=== PATIENT | male | born 1950 | race Caucasian/White ===

== ENCOUNTER 2019-05-13 16:17 | Emergency (ER) | payer OTHER ==
[2019-05-13 17:19] LABS: Absolute Lymphocytes (CBC) 2.1 K/uL (0.7-4.9); Basophils % 1.3 % (0-1.3); Hematocrit 46.1 % (39.6-49.0); Lymphocytes % 20.4 % (15.3-44.8); MPV 8.3 fL (7.6-11.3); RBC Red Blood Cell Count 4.77 M/uL (4.33-5.43)
[2019-05-13 17:20] LABS: Protime INR 1.24
--- NOTE | 2019-05-13 17:34 | RAD REPORT ---
EXAM DESCRIPTION: RAD - Chest Single View - 05/13/2019 5:06 pm CLINICAL HISTORY: near syncope. Cardiac Hx Chest pain. COMPARISON: No comparisonsChest Single View dated 10/06/2016; Chest Single View dated 10/05/2016; Chest Single View dated 07/24/2016; Chest Pa And Lat (2 Views) dated 06/07/2016 FINDINGS: Portable technique limits examination quality. The lungs are grossly clear. The heart is mildly enlarged in size. No displaced fractures. IMPRESSION: Mild cardiomegaly.
[2019-05-13 17:45] LABS: ALT/SGPT 32 U/L (12-78); AST/SGOT 24 U/L (15-37); Albumin 3.8 g/dL (3.4-5.0); Alkaline Phosphatase 107 U/L (45-117); BUN Blood Urea Nitrogen 27 mg/dL (7-18); Bicarbonate 25 mmol/L (21-32); Bilirubin Direct 0.1 mg/dL (0-0.2); Bilirubin Total 0.5 mg/dL (0.2-1.0); Glucose Level 105 mg/dL (74-106); Magnesium 2.4 mg/dL (1.8-2.4); NT PRO-BNP 1775 pg/mL (<125); Potassium 3.6 mmol/L (3.5-5.1); Protein, Total 7.9 g/dL (6.4-8.2); Sodium Level 142 mmol/L (136-145); Troponin (Emerg Dept Use Only) < 0.02 ng/mL (0.0-0.045)
--- NOTE | 2019-05-13 17:48 | EDPHYS ---
Physician Documentation [facility] Name: Frank Shaw Age: 69 yrs Sex: Male : 1950 Arrival Date: 05/13/2019 Time: 16:33 Bed 26 Private MD: DORYS Physician Jama Echols HPI: 05/13 16:59 This 69 yrs old Male presents to ER via Unassigned with complaints of Near jr8 Syncope, Dizziness. 16:59 The patient has experienced near-syncope, felt dizzy. Onset: The symptoms/episode jr8 began/occurred acutely, today. Duration: This was a single episode, that lasted 5 minute(s). Context: occurred outdoors, at work, occurred while the patient was standing, walking, Just prior to the episode the patient experienced no apparent symptoms. Associated injury: The patient did not suffer any apparent associated injury. Associated signs and symptoms: The patient has no apparent associated signs or symptoms. Current symptoms: Currently, the patient is not experiencing any symptoms, the patient feels back to baseline, no decreased level of consciousness, no confusion, no dysphasia, no headache, no paralysis, no visual changes. The patient has not experienced similar symptoms in the past. The patient has not recently seen a physician. 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 Turned around to walk back and became dizzy. Now with complete symptom resolution. Denied any other symptoms pre incident or during incident. Stated that he feels completely normal at this point . Historical: - Allergies: 16:33 Robaxin; aa5 16:33 statins; aa5 - Home Meds: 16:33 aspirin 81 mg Oral chew 1 tab once daily [Active]; doxazosin 2 mg Oral tab 1 tab twice aa5 a day [Active]; hydralazine 25 mg Oral tab 1 tab 2 times per day for Hypertension [Active]; Lasix 40 mg Oral tab 1 tab once daily for Peripheral Edema due to Chronic Heart Failure [Active]; metoprolol tartrate 50 mg Oral tab 1 tab 2 times per day [Active]; montelukast 10 mg Oral tab 1 tab once daily [Active]; nifedipine 60 mg Oral TbER 1 tab twice a day [Active]; nitroglycerin 0.4 mg SL subl 1 tab as needed [Active]; potassium chloride 10 mEq Oral cpER 1 cap 3 times per day for Hypokalemia Prevention [Active]; Xarelto 20 mg Oral tab 1 tab once daily [Active]; - PMHx: 16:33 Atrial Fib; CAD; CHF; COPD; CVA; Diabetes - NIDDM; Hernia; Hypertension; Myocardial aa5 infarction; Renal Disease; Sleep Apnea; - PSHx: 16:33 Heart stents; back sx; Knee surgery; Chest tube for collapsed lung; aa5 - Immunization history:: Flu vaccine is not up to date. - Social history:: Smoking status: Patient uses tobacco products, smokes one-half pack cigarettes per day, chewing tobacco. - Ebola Screening: : No symptoms or risks identified at this time. ROS: 16:59 Eyes: Negative for injury, pain, redness, and discharge, ENT: Negative for injury, jr8 pain, and discharge, Neck: Negative for injury, pain, and swelling, Cardiovascular: Negative for chest pain, palpitations, and edema, Respiratory: Negative for shortness of breath, cough, wheezing, and pleuritic chest pain, Abdomen/GI: Negative for abdominal pain, nausea, vomiting, diarrhea, and constipation, Back: Negative for injury and pain, MS/Extremity: Negative for injury and deformity, Skin: Negative for injury, rash, and discoloration. 16:59 Neuro: Positive for dizziness. Exam: 16:59 Eyes: Pupils equal round and reactive to light, extra-ocular motions intact. Lids and jr8 lashes normal. Conjunctiva and sclera are non-icteric and not injected. Cornea within normal limits. Periorbital areas with no swelling, redness, or edema. ENT: Nares patent. No nasal discharge, no septal abnormalities noted. Tympanic membranes are normal and external auditory canals are clear. Oropharynx with no redness, swelling, or masses, exudates, or evidence of obstruction, uvula midline. Mucous membranes moist. Neck: Trachea midline, no thyromegaly or masses palpated, and no cervical lymphadenopathy. Supple, full range of motion without nuchal rigidity, or vertebral point tenderness. No Meningismus. Cardiovascular: Regular rate and rhythm with a normal S1 and S2. No gallops, murmurs, or rubs. Normal PMI, no JVD. No pulse deficits. Respiratory: Lungs have equal breath sounds bilaterally, clear to auscultation and percussion. No rales, rhonchi or wheezes noted. No increased work of breathing, no retractions or nasal flaring. Abdomen/GI: Soft, non-tender, with normal bowel sounds. No distension or tympany. No guarding or rebound. No evidence of tenderness throughout. Back: No spinal tenderness. No costovertebral tenderness. Full range of motion. Skin: Warm, dry with normal turgor. Normal color with no rashes, no lesions, and no evidence of cellulitis. MS/ Extremity: Pulses equal, no cyanosis. Neurovascular intact. Full, normal range of motion. Neuro: Awake and alert, GCS 15, oriented to person, place, time, and situation. Cranial nerves II-XII grossly intact. Motor strength 5/5 in all extremities. Sensory grossly intact. Cerebellar exam normal. Normal gait. 17:12 ECG was reviewed by the Attending Physician. [facility] Vital Signs: 16:34 BP 145 / 86; Pulse 81; Resp 18 S; Temp 98.6(O); Pulse Ox 96% on R/A; Weight 111.13 kg aa5 (R); Height 5 ft. 10 in. (177.80 cm) (R); Pain 0/10; 17:00 BP 148 / 97; Pulse 91; Resp 16 S; Pulse Ox 96% on R/A; aa5 18:00 BP 141 / 83; Pulse 95; Resp 18 S; Pulse Ox 96% on R/A; aa5 16:34 Body Mass Index 35.15 (111.13 kg, 177.80 cm) aa5 MDM: 16:37 Patient medically screened. [facility] 16:59 Data reviewed: vital signs, nurses notes, lab test result(s), EKG, radiologic studies, jr8 plain films. Data interpreted: Pulse oximetry: on room air is 100 %. Interpretation: normal. Counseling: I had a detailed discussion with the patient and/or guardian regarding: the historical points, exam findings, and any diagnostic results supporting the discharge/admit diagnosis, lab results, radiology results. 05/13 16:37 Order name: Basic Metabolic Panel; Complete Time: 17:47 8 05/13 16:37 Order name: CBC with Diff; Complete Time: 17:29 8 05/13 16:37 Order name: LFT's; Complete Time: 17:47 8 05/13 16:37 Order name: Magnesium; Complete Time: 17:47 05/13 16:37 Order name: NT PRO-BNP; Complete Time: 17:47 05/13 16:37 Order name: PT-INR; Complete Time: 17:29 05/13 16:37 Order name: Troponin (emerg Dept Use Only); Complete Time: 17:47 05/13 16:37 Order name: XRAY Chest (1 view); Complete Time: 17:47 05/13 16:37 Order name: EKG; Complete Time: 16:40 05/13 16:37 Order name: Cardiac monitoring; Complete Time: 16:47 05/13 16:37 Order name: EKG - Nurse/Tech; Complete Time: 16:47 05/13 16:37 Order name: IV Saline Lock; Complete Time: 16:56 05/13 16:37 Order name: Labs collected and sent; Complete Time: 16:56 05/13 16:37 Order name: O2 Per Protocol; Complete Time: 16:47 05/13 16:37 Order name: O2 Sat Monitoring; Complete Time: 16:47 EC:12 Rate is 94 beats/min. Rhythm is irregularly irregular, A fib. QRS [place] is Normal. QRS jr8 interval is normal at 102 msec. QT interval is prolonged at 465 msec. No Q waves. T waves are Normal. No ST changes noted. Clinical impression: Atrial Fibrillation and No evidence of ischemia. Interpreted by me. Reviewed by me. Administered Medications: No medications were administered Disposition: 05/14 07:52 Co-signature as Attending Physician, Jama Echols MD I agree with the assessment and dorina plan of care. Disposition: 05/13/19 17:48 Discharged to Home. Impression: Dizziness. - Condition is Stable. - Discharge Instructions: Dizziness. - Medication Reconciliation Form, Thank You Letter, Antibiotic Education, Prescription Opioid Use form. - Follow up: Private Physician; When: 2 - 3 days; Reason: Recheck today's complaints, Continuance of care, Re-evaluation by your physician. - Problem is new. - Symptoms are resolved. Signatures: Dispatcher [employer] Jama Williamson MD MD cha Calderon, Audri, RN RN aa5 Smooth Cuevas PA PA jr8 Laila Sifuentes lt1 Corrections: (The following items were deleted from the chart) 05/13 18:24 17:48 05/13/2019 17:48 Discharged to Home. Impression: Dizziness. Condition is Stable. lt1 Forms are Medication Reconciliation Form, Thank You Letter, Antibiotic Education, Prescription Opioid Use. Follow up: Private Physician; When: 2 - 3 days; Reason: Recheck today's complaints, Continuance of care, Re-evaluation by your physician. Problem is new. Symptoms are resolved. jr8
--- NOTE | 2019-05-13 17:48 | ER ---
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 Pt denies LOC, denies head injury, denies pain. Pt states "I feel fine now". 16:33 Transition of care: patient was not received from another setting of care. Onset of aa5 symptoms was May 13, 2019. Risk Assessment: Do you want to hurt yourself or someone else? Patient reports no desire to harm self or others. Initial Sepsis Screen: Does the patient meet any 2 criteria? No. Patient's initial sepsis screen is negative. Does the patient have a suspected source of infection? No. Patient's initial sepsis screen is negative. Care prior to arrival: Glucose check: 103. 16:33 Acuity: AGUS 3 aa5 16:33 Method Of Arrival: EMS: [facility] aa5 Historical: - Allergies: 16:33 Robaxin; aa5 16:33 statins; aa5 - Home Meds: 16:33 aspirin 81 mg Oral chew 1 tab once daily [Active]; doxazosin 2 mg Oral tab 1 tab twice aa5 a day [Active]; hydralazine 25 mg Oral tab 1 tab 2 times per day for Hypertension [Active]; Lasix 40 mg Oral tab 1 tab once daily for Peripheral Edema due to Chronic Heart Failure [Active]; metoprolol tartrate 50 mg Oral tab 1 tab 2 times per day [Active]; montelukast 10 mg Oral tab 1 tab once daily [Active]; nifedipine 60 mg Oral TbER 1 tab twice a day [Active]; nitroglycerin 0.4 mg SL subl 1 tab as needed [Active]; potassium chloride 10 mEq Oral cpER 1 cap 3 times per day for Hypokalemia Prevention [Active]; Xarelto 20 mg Oral tab 1 tab once daily [Active]; - PMHx: 16:33 Atrial Fib; CAD; CHF; COPD; CVA; Diabetes - NIDDM; Hernia; Hypertension; Myocardial aa5 infarction; Renal Disease; Sleep Apnea; - PSHx: 16:33 Heart stents; back sx; Knee surgery; Chest tube for collapsed lung; aa5 - Immunization history:: Flu vaccine is not up to date. - Social history:: Smoking status: Patient uses tobacco products, smokes one-half pack cigarettes per day, chewing tobacco. - Ebola Screening: : No symptoms or risks identified at this time. Screenin:20 Abuse screen: Denies threats or abuse. Nutritional screening: No deficits noted. aa5 Tuberculosis screening: No symptoms or risk factors identified. Fall Risk Fall in past 12 months (25 points). IV access (20 points). Total Christensen Fall Scale indicates High Risk Score (45 or more points). Fall prevention measures have been instituted. Side Rails Up X 2 Placed Close to Nursing Station. Assessment: 16:33 General: Appears comfortable, Behavior is calm, cooperative. Pain: Denies pain. Neuro: aa5 Level of Consciousness is awake, alert, obeys commands, Oriented to person, place, time, situation, Marking Devices Assembler are equal bilaterally Moves all extremities. Speech is normal, Facial symmetry appears normal, Denies dizziness. Cardiovascular: Heart tones S1 S2 present Rhythm is atrial fibrillation. Respiratory: Airway is patent Respiratory effort is even, unlabored, Respiratory pattern is regular, symmetrical. GI: Abdomen is obese, Bowel sounds present X 4 quads. : No signs and/or symptoms were reported regarding the genitourinary system. EENT: No signs and/or symptoms were reported regarding the EENT system. Derm: Skin is pink, warm \\T\\ dry. Musculoskeletal: Range of motion: intact in all extremities. 17:30 Reassessment: Patient is alert, oriented x 3, equal unlabored respirations, skin aa5 warm/dry/pink. Patient denies pain at this time. Pt sitting up in bed watching TV . 17:30 Cardiovascular: Rhythm is atrial fibrillation. aa5 18:22 Reassessment: Patient is alert, oriented x 3, equal unlabored respirations, skin aa5 warm/dry/pink. Vital Signs: 16:34 BP 145 / 86; Pulse 81; Resp 18 S; Temp 98.6(O); Pulse Ox 96% on R/A; Weight 111.13 kg aa5 (R); Height 5 ft. 10 in. (177.80 cm) (R); Pain 0/10; 17:00 BP 148 / 97; Pulse 91; Resp 16 S; Pulse Ox 96% on R/A; aa5 18:00 BP 141 / 83; Pulse 95; Resp 18 S; Pulse Ox 96% on R/A; aa5 16:34 Body Mass Index 35.15 (111.13 kg, 177.80 cm) aa5 ED Course: 16:33 Patient arrived in ED. aa5 16:33 Arm band placed on Patient placed in an exam room, on a stretcher. aa5 16:33 Patient has correct armband on for positive identification. Placed in gown. Bed in low aa5 position. Call light in reach. Side rails up X2. threat monitoring analyst on. Pulse ox on. NIBP on. 16:37 Smooth Cuevas PA is PHCP. [place] 16:37 Jama Echols MD is Attending Physician. [place] 16:56 Marleen Bee, TRENT is Primary Nurse. aa5 16:59 Initial lab(s) drawn, by me, sent to lab. Inserted saline lock: 20 gauge in left lt1 antecubital area, using aseptic technique. 17:01 Triage completed. aa5 17:07 XRAY Chest (1 view) In Process Unspecified. EDMS 18:22 IV discontinued, intact, bleeding controlled, No redness/swelling at site. Pressure aa5 dressing applied. 18:24 No provider procedures requiring assistance completed. aa5 Administered Medications: No medications were administered Outcome: 17:48 Discharge ordered by . andre 18:22 Discharged to home ambulatory, with family. aa5 18:22 Condition: stable 18:22 Discharge instructions given to patient, Instructed on discharge instructions, follow up and referral plans. Demonstrated understanding of instructions, follow-up care. 18:24 Patient left the ED. lt1 Signatures: Dispatcher [employer] EDMS Marleen Bee, RN RN aa5 Smooth Cuevas PA PA jr8 Tran, Leah lt1 Corrections: (The following items were deleted from the chart) 18:32 18:22 [facility]
[2019-05-13 19:02] VITALS: BP 145/86; TEMP 98.6; O2SAT 96
--- NOTE | 2019-05-14 12:21 | EKG ---
Test Date: 2019-05-13 Test Time: 16:45:35 Set Staff Fitter: JINT MEASUREMENT RESULTS: Intervals: Rate: 94 MD: QRSD: 102 QT: 372 QTc: 465 [place]: P: MD: QRS: 70 T: 14 INTERPRETIVE STATEMENTS: Atrial fibrillation Abnormal ECG Compared to ECG 10/05/2016 21:38:25 Sinus rhythm no longer present Atrial premature complex(es) no longer present Electronically Signed On 05-14-19 12:20:43 [employer]OR [employer] by Mike Ray
== END 2019-05-13 18:24 | disposition home or self-care (01) ==
LOC: ER 16:17
DX: R42 Dizziness and giddiness (principal); N28.9 Disorder of kidney and ureter, unspecified; I10 Essential (primary) hypertension; E11.9 Type 2 diabetes mellitus without complications; I50.9 Heart failure, unspecified; I48.91 Unspecified atrial fibrillation; I25.2 Old myocardial infarction; Z79.01 Long term (current) use of anticoagulants; Z79.82 Long term (current) use of aspirin; Z88.8 Allergy status to other drugs, medicaments and biological substances
CPT/HCPCS: 36415; 71045; 80048; 80076; 83735; 83880; 84484; 85025; 85610; 93005; 99284

== ENCOUNTER 2019-06-12 00:45 | Emergency (ER) | payer OTHER ==
--- NOTE | 2019-06-12 01:46 | ER ---
Nurse's Notes [facility] Name: Frank Shaw Age: 69 yrs Sex: Male : 1950 Arrival Date: 06/12/2019 Time: 00:49 Bed 14 Private MD: Diagnosis: Removal foreign body from right ear canal Presentation: 06/12 01:00 Presenting complaint: Patient states: PIECE OF HEARING AID DISLODGED IN THE RIGHT EAR. rv Transition of care: patient was not received from another setting of care. Onset of symptoms was June 11, 2019 at 23:30. Risk Assessment: Do you want to hurt yourself or someone else? Patient reports no desire to harm self or others. Initial Sepsis Screen: Does the patient meet any 2 criteria? No. Patient's initial sepsis screen is negative. Does the patient have a suspected source of infection? No. Patient's initial sepsis screen is negative. Care prior to arrival: None. 01:00 Method Of Arrival: Ambulatory rv 01:00 Acuity: AGUS 4 rv Triage Assessment: 01:07 General: Behavior is calm. rv Historical: - Allergies: 01:05 Robaxin; rv 01:05 statins; rv - PMHx: 01:05 Atrial Fib; CAD; CHF; COPD; CVA; Diabetes - NIDDM; Hernia; Hypertension; Myocardial rv infarction; Renal Disease; Sleep Apnea; - PSHx: 01:05 ANEURYSM REPAIR; BACK SX; rv - Immunization history:: Adult Immunizations up to date, Pneumococcal vaccine is not up to date, Flu vaccine is not up to date. - Coronavirus screen:: The patient has NOT traveled to [place], [place], or [place] in the past 14 days. Proceed with normal triage process as indicated. The patient has NOT had contact with known/suspected case of Coronavirus? Proceed with normal triage procedures. - Social history:: Smoking status: Patient denies any tobacco usage or history of. - Ebola Screening: : No symptoms or risks identified at this time. Screenin:06 Abuse screen: Denies threats or abuse. Denies injuries from another. Nutritional rv screening: No deficits noted. Tuberculosis screening: No symptoms or risk factors identified. Fall Risk None identified. Assessment: 01:06 General: Appears in no apparent distress. Pain: Complains of pain in right ear Pain rv currently is 1 out of 10 on a pain scale. Neuro: Level of Consciousness is awake, alert, obeys commands, Oriented to person, place, time, situation. Cardiovascular: Patient's skin is warm and dry. Respiratory: Airway is patent. Vital Signs: 01:01 BP 143 / 99; Pulse 77; Resp 18; Temp 98; Pulse Ox 100% ; Weight 113.4 kg; Height 5 ft. rv 11 in. (180.34 cm); Pain 0/10; 01:01 Body Mass Index 34.87 (113.40 kg, 180.34 cm) rv ED Course: 00:49 Patient arrived in ED. jg7 01:00 Augustus Flores, TRENT is Primary Nurse. rv 01:01 Triage completed. rv 01:01 Jama Navarrete PA is PHCP. cp 01:01 Jama Echols MD is Attending Physician. cp 01:05 Arm band placed on Patient placed in the treatment room, on a stretcher, Patient rv notified of wait time. 01:06 Patient has correct armband on for positive identification. Pulse ox on. NIBP on. rv 01:44 Tram Sofia MD is Referral Physician. cp 01:59 No provider procedures requiring assistance completed. Patient did not have IV access rv during this emergency room visit. Administered Medications: No medications were administered Outcome: 01:45 Discharge ordered by . cp 02:00 Discharged to home ambulatory. rv 02:00 Condition: good 02:00 Discharge instructions given to patient, Instructed on discharge instructions, follow up and referral plans. medication usage, Demonstrated understanding of instructions, follow-up care, medications, Prescriptions given X 1. 02:00 Patient left the ED. rv Signatures: Jama Navarrete PA PA cp Augustus Flores, RN RN rv Jessika Georges jg7 Corrections: (The following items were deleted from the chart) 02:00 01:59 Crutch training done. Orthoglass splint: Posterior short lleg splint applied on rv right leg. rv
--- NOTE | 2019-06-12 01:46 | EDPHYS ---
Physician Documentation [facility] Name: Frank Shaw Age: 69 yrs Sex: Male : 1950 Arrival Date: 06/12/2019 Time: 00:49 Bed 14 Private MD: ED Physician Jama Echols HPI: 06/12 01:15 This 69 yrs old Male presents to ER via Ambulatory with complaints of Foreign cp Body In Ear. 01:15 The patient presents with a foreign body sensation, believes piece of hearing aid is cp stuck in right ear canal. 01:15 The complaints affect the right ear. Onset: The symptoms/episode began/occurred today. cp Associated signs and symptoms: Pertinent negatives: cough, fever, sinus trouble, sore throat, vertigo, drainage from ear. Severity of symptoms: in the emergency department the symptoms are unchanged despite home interventions. Historical: - Allergies: 01:05 Robaxin; rv 01:05 statins; rv - PMHx: 01:05 Atrial Fib; CAD; CHF; COPD; CVA; Diabetes - NIDDM; Hernia; Hypertension; Myocardial rv infarction; Renal Disease; Sleep Apnea; - PSHx: 01:05 ANEURYSM REPAIR; BACK SX; rv - Immunization history:: Adult Immunizations up to date, Pneumococcal vaccine is not up to date, Flu vaccine is not up to date. - Coronavirus screen:: The patient has NOT traveled to [place], [place], or [place] in the past 14 days. Proceed with normal triage process as indicated. The patient has NOT had contact with known/suspected case of Coronavirus? Proceed with normal triage procedures. - Social history:: Smoking status: Patient denies any tobacco usage or history of. - Ebola Screening: : No symptoms or risks identified at this time. ROS: 01:20 ENT: Positive for foreign body sensation right ear canal, Negative for drainage from cp ear(s), sore throat, difficulty swallowing, difficulty handling secretions. 01:20 Eyes: Negative for injury, pain, redness, and discharge. cp 01:20 Constitutional: Negative for body aches, chills, fever. 01:20 Respiratory: Negative for cough, shortness of breath, wheezing. 01:20 Abdomen/GI: Negative for abdominal pain. 01:20 Skin: Negative for rash. 01:20 Neuro: Negative for headache. 01:20 All other systems are negative. Exam: 01:25 Head/Face: Normocephalic, atraumatic. cp 01:25 Constitutional: The patient appears in no acute distress, alert, awake, non-toxic, well developed, well nourished. 01:25 Eyes: Periorbital structures: appear normal, Conjunctiva: normal, no exudate, no injection, Lids and lashes: appear normal, bilaterally. 01:25 ENT: External ear(s): are unremarkable, Ear canal(s): erythema, of the right canal, foreign body, appears as clear plastic tip of hearing aid device, in the right external ear canal, purulent discharge, is not appreciated, Examination of the other ear shows no obvious abnormality, Nose: is normal, Mouth: Lips: moist, Oral mucosa: moist, Posterior pharynx: Airway: no evidence of obstruction, patent. 01:25 Chest/axilla: Inspection: normal. 01:25 Cardiovascular: Rate: normal. 01:25 Respiratory: the patient does not display signs of respiratory distress, Respirations: normal, no use of accessory muscles, labored breathing, is not present. 01:25 Skin: no rash present. Vital Signs: 01:01 BP 143 / 99; Pulse 77; Resp 18; Temp 98; Pulse Ox 100% ; Weight 113.4 kg; Height 5 ft. rv 11 in. (180.34 cm); Pain 0/10; 01:01 Body Mass Index 34.87 (113.40 kg, 180.34 cm) rv Procedures: 01:55 Foreign Body Removal: piece of plastic, clear tip of hearing aid, from the right ear cp canal, by using alligator clamps, The patient tolerated the removal well. MDM: 01:02 Patient medically screened. cp 01:45 Differential diagnosis: otitis media, otitis externa, ruptured TM, foreign body, cp cerumen impaction. 01:45 Data reviewed: vital signs, nurses notes, and as a result, I will discharge patient. cp Counseling: I had a detailed discussion with the patient and/or guardian regarding: the historical points, exam findings, and any diagnostic results supporting the discharge/admit diagnosis, to return to the emergency department if symptoms worsen or persist or if there are any questions or concerns that arise at home. Response to treatment: the patient's symptoms have markedly improved after treatment, and as a result, I will discharge patient. Administered Medications: No medications were administered Disposition: 06/12/19 01:45 Discharged to Home. Impression: Removal foreign body from right ear canal. - Condition is Stable. - Discharge Instructions: Ear Foreign Body. - Prescriptions for Ciprodex 0.3- 0.1 % Otic Drops, Suspension - instill 4 drops by OTIC route every 12 hours for 7 days , for ears ONLY. instill drops in right ear canal; 1 Container. - Medication Reconciliation Form, Thank You Letter, Antibiotic Education, Prescription Opioid Use form. - Follow up: Tram Sofia MD; When: 2 - 3 days; Reason: Worsening of condition. - Problem is new. - Symptoms have improved. Addendum: 06/14/2019 06:56 Co-signature as Attending Physician, Jama Echols MD I agree with the assessment and c hdz plan of care. Signatures: Jama Echols MD MD cha Page, Corey PA PA Augustus Navarro, RN RN rv Corrections: (The following items were deleted from the chart) 06/12 02:00 01:45 06/12/2019 01:45 Discharged to Home. Impression: Removal foreign body from right rv ear canal. Condition is Stable. Forms are Medication Reconciliation Form, Thank You Letter, Antibiotic Education, Prescription Opioid Use. Follow up: Tram Sofia; When: 2 - 3 days; Reason: Worsening of condition. Problem is new. Symptoms have improved. cp
[2019-06-12 02:28] VITALS: BP 143/99; TEMP 98; O2SAT 100
== END 2019-06-12 02:00 | disposition home or self-care (01) ==
LOC: ER 00:45
PROC: 09C3XZZ Extirpation of Matter from Right External Auditory Canal, External Approach (ICD-10-PCS; principal; 2019-06-12)
DX: T16.1XXA Foreign body in right ear, initial encounter (principal); I10 Essential (primary) hypertension; Z88.8 Allergy status to other drugs, medicaments and biological substances
CPT/HCPCS: 99283

== ENCOUNTER 2019-09-26 13:56 | Emergency (ER) | payer OTHER ==
--- OUTSIDE RECORDS SUMMARY | 2019-09-26 14:08 | XMS REPORT | Continuity of Care Document ---
:1950 Author Organization [email or web address] Classifieds Information Asuum Care Team Providers Name Role Phone [employer] Unavailable Un available Problems Problem Status Onset Classification Date Comments Sourc e Date Reported PNEUMOTHORAX Active 10/07/19 [facility] UNK Active 01/03/[address] INFRARENAL AORTIC Active 11/06/19 [facility] ANEURYSM [address] [place] [address] TIA, AF, IC Active 06/09/19 [facility] ATHEROSCLEROSIS [address] [place] [address] TIA Active 06/09/[address] CHEST PAIN Active 01/14/[address] ACS R/O Active 01/14/[address] Chest pain Active Problem 01/17/2012 [facility] Atrial Resolved Problem 10/16/2016 [facility] fibrillation Medical (disorder) Center,[facility], [facility] OPIMihai Barton Transient ischemic Active Problem 10/16/2016 [facility] attack (disorder) Ms dical Center,[facility], [facility] OPIMihai Barton Atherosclerosis of Active Problem 10/16/2016 [facility] coronary artery [facility] (disorder) Center,[facility], [facility] OPIMihai Barton Chest pain Active Problem 10/16/2016 [facility] (finding) [facility], [facility] OPIMihai Barton Diabetes mellitus Active Problem 10/16/2016 [facility] (disorder) [facility], [facility] OPID [place] Myocardial Resolved Problem 10/16/2016 [facility] infarction Medical (disorder) Center,[facility], H [facility] [place] Hearing loss Active Problem 10/16/2016 [place] (finding) Medical Center,[facility], H OPID [place] Hypertensive Active Problem 10/16/2016 [place] disorder, systemic edical arterial Center, (disorder) [facility] , H OPID [place] Hyperlipidemia Resolved Problem 10/16/2016 [place] ([place]order[place] [facility], H OPIMihai Barton Smoker (finding) Resolved Problem 10/16/2016 [facility], H OPID [place] Tinnitus (finding) Resolved Problem 10/16/2016 [facility], Ivonne, Christina [place] 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 Med ical rupture (disorder) C enter, Ivonne, Christina [place] Acute renal Active Problem 10/16/2016 [facility] s failure syndrome [facility] ical (disorder) Center, Ivonne, Christina [facility]OC [place] Diverticulitis Active Problem 10/16/2016 [facility] ex (disorder) Medical Center,[facility], [facility] QUOC [place] Serum creatinine Active Problem 10/16/2016 [facility] raised (finding) Med ica [facility], [facility] QUOC [place] Sleep apnea [place] [facility] [place] [place] CORONARY ARTERY Active [facility] ANOMALY [facility] TRANSIENT CEREBRAL Active [facility] ISCHEMIC ATTACK, Med ical UNSP Center ILLNESS, Active [facility] UNSPECIFIED [facility] ABDOMINAL AORTIC Active ANEURYSM, WITHOUT [place] RUPTU Medications Medication Details Route Status Patient Ordering Order Source Instructions Provider Date Milli Notes: (Same as: Inactive [place] Morley) [address] [place] [address] 24 HR Nifedipine 60 mg = 1 tab, Active [place] 60 MG Extended PO, Daily, .., 0 2017 Medical Release Tablet Refill(s) [place] tramadol 50 mg = 1 tab, Active [facility] hydrochloride 50 PO, Q6H, # 30 2017 edical MG Oral Tablet tab, 0 Refill(s) [place] gabapentin 300 300 mg = 1 cap, Active [facility] [place] MG Oral Capsule PO, Q12H, # 60 2017 edical cap, 0 Refill(s) [place] insulin isophane 9 unit, SUB-Q, Active [facility] (NPH) 100 Q8H, 0 Refill(s) [facility] Medic al units/mL human [place] recombinant subcutaneous suspension Doxazosin Notes: (Same as: Inactive Siomara Morley) [address] [place] [address] Robitussin-DM Notes: No Longer [facility] (dextromethorpha Active [address] [place] [address] n-guaifenesin Center 10-100mg/5ml 10 ml oral SOLN ud) (Same as: Robitussin DM) Albuterol 1 Notes: SEE RT No Longer [facility] [place] MG/ML Inhalant DOCUMENTATION Active 2016 Med ical Solution (Same as: Center Proventil) Robitussin 30 mg, Route: Inactive [place] as Maximum Strength PO, Q6H, Dosing 2016 Medical Weight 105.9, Center kg, Priority: NOW, Start date: 10/11/16 17:22:00 CDT, Duration: 30 day, Stop date: 11/10/16 12:00:00 CDT sennosides, ALF Notes: (Same as: No Longer 10/11 Jc Senokot) Active 2017 Medical Center Magnesium Oxide 800 mg, Route: Inactive [place] PO, PRN, Dosing 2017 Medical Weight 105.9, Center kg, PRN Abnormal Lab Result, For NON-ICU Patients Only., Start date: 10/11/16 16:21:00 CDT, Duration: 30 day, Stop date: 11/10/16 16:20:00 CDT Magnesium 1 gm, Route: Inactive [facility] Sulfate IVPB, PRN, 2016 Medical Dosing Weight Center 105.9, kg, PRN Abnormal Lab Result, For NON-ICU Patients Only., Start date: 10/11/16 16:21:00 CDT, Duration: 30 day, Stop date: 11/10/16 16:20:00 CDT sodium phosphate 30 mmol, Route: Inactive [place] IVPB, PRN, 2016 Medical Dosing Weight Center 105.9, kg, PRN Abnormal Lab Result, For NON-ICU Patients Only., Start date: 10/11/16 16:21:00 CDT, Duration: 30 day, Stop date: 11/10/16 16:20:00 CDT Calcium 2 gm, Route: Inactive [facility] Gluconate IVPB, PRN, 2016 Medical Dosing Weight Center 105.9, kg, PRN Abnormal Lab Result, For NON-ICU Patients Only., Start date: 10/11/16 16:21:00 CDT, Duration: 30 day, Stop date: 11/10/16 16:20:00 CDT potassium 30 mmol, Route: Inactive [place] phosphate IVPB, PRN, 2016 Medical Dosing Weight Center 105.9, kg, PRN Abnormal Lab Result, For NON-ICU Patients Only., Start date: 10/11/16 16:21:00 CDT, Duration: 30 day, Stop date: 11/10/16 16:20:00 CDT potassium 2 pkt, Route: [place] phosphate-sodium PO, Dosing 2017 Medi [place] phosphate 250 Weight 105.9, Cent er mg-280 mg-160 mg kg, PRN, PRN oral powder for Abnormal Lab reconstitution Result, For NON-ICU Patients Only, Start date: 10/11/16 16:21:00 CDT, Duration: 30 day, Stop date: 11/10/16 16:20:00 CDT potassium 10 mEq, Route: Inactive [place] chloride IVPB, PRN, 2017 Medical Dosing Weight Center 105.9, kg, PRN Abnormal Lab Result, For NON-ICU Patients Only, Start date: 10/11/16 16:21:00 CDT, Duration: 30 day, Stop date: 11/10/16 16:20:00 CDT Isolyte S (PH Notes: (Same as: Inactive [place] 7.4) 500 mL 500 Isolyte S PH7.4) 2017 [facility] mL Center Docusate Notes: (Same as: No Longer [place] Colace) (Do Not Active 2017 Medical Crush) Center tramadol Notes: Not to No Longer [place] hydrochloride 50 exceed Active 2017 Medical MG Oral Tablet 400mg/day. (Same Center As: Ultram) gabapentin Notes: (Same as: No Longer [facility] Neurontin) Active [address] [place] [address] Center Acetaminophen Notes: Do not No Longer Jc 300 MG / Codeine exceed 4gm/day Active 2017 Medical Phosphate 30 MG of Center Oral Tablet acetaminophen. [Tylenol with (Same as: Codeine #3] Tylenol with Codeine # 3) Sodium Chloride 250 mL, 250 Inactive Jc 0.154 MEQ/ML ml/hr, Infuse 2017 Medic al Injectable Over: 1 hr, [place] Solution Route: IV, 250, Drug form: INJ, ONCE, Priority: STAT, Dosing Weight 105.9 kg, Start date: 10/10/16 11:15:00 CDT, Duration: 1 doses or times, Stop date: 10/10/16 11:15:00 CDT gabapentin Notes: (Same as: No Longer [facility] Neurontin) Active 2017 [facility] Hydromorphone Notes: (Same as: No Longer [facility] Dilaudid) conc = Active 2017 [facility] 0.5 mg/ml [place] Hydromorphone MANAGER STATISTICAL Dose: ;Delay: ;Basal: Naloxone Notes: Same as No Longer [place] Narcan Active 2017 [facility] neostigmine Route: IV, Drug Inactive [facility] (ANES) form: INJ, ONCE, 2016 Medical Stop date: [place] 10/09/16 11:32:00 CDT glycopyrrolate Route: IV, Drug Inactive [facility] (ANES) form: INJ, ONCE, 2016 Medical Stop date: [place] 10/09/16 11:32:00 CDT Ondansetron Notes: (Same as: Inactive [facility] Zofran) 2017 Medical MEDICATION WASTE Center Product Size: 4 mg Product Wasted: _0__ mg Naloxone Notes: Same as Inactive [place] Narcan 2017 [facility] Flumazenil Notes: (Same as: Inactive [facility] Romazicon) 2017 [facility] Fentanyl Notes: (Same as: Inactive 10/09[facility] [place] Sublimaze) 2017 [facility] Preservative Center free. ondansetron Route: IV, Drug Inactive [facility] (ANES) form: INJ, ONCE, 2016 Medical Stop date: [place] 10/09/16 11:03:00 CDT acetaminophen Route: IV, Drug Inactive [facility] (DARIUS) (ANES) form: INJ, Start 2016 edical date: 10/09/16 [place] 10:29:00 CDT, Stop date: 10/09/16 11:29:00 CDT norepinephrine Route: IV, Drug Inactive [facility] (ANES) form: INJ, ONCE, 2016 Medical Stop date: [place] 10/09/16 9:28:00 CDT cisatracurium Route: IV, Drug Inactive [facility] (ANES) form: INJ, ONCE, 2016 Medical Stop date: [place] 10/09/16 9:18:00 CDT midazolam (ANES) Route: IV, Drug Inactive 06/07[facility] form: SOLN, 2016 Medical ONCE, Stop date: [place] 10/09/16 9:13:00 CDT lidocaine (ANES) Route: IV, Drug Inactive [facility] form: INJ, ONCE, 2016 Medical Stop date: [place] 10/09/16 9:13:00 CDT propofol (ANES) Route: IV, Drug Inactive 10/09[facility] form: INJ, ONCE, 2016 Medical Stop date: [place] 10/09/16 9:13:00 CDT ceFAZolin (ANES) Route: IV, Drug Inactive 10/09[facility] form: INJ, ONCE, 2016 Medical Stop date: [place] 10/09/16 9:08:00 CDT fentaNYL (ANES) Route: IV, Drug Inactive 10/09[facility] form: INJ, ONCE, 2016 Medical Stop date: [place] 10/09/16 9:08:00 CDT Exparel Notes: (Same as: [place] Longer [place] Exparel) Active 2016 Medical NOT FOR IV Center use Postoperative analgesia: Infiltration (local): Dose is based on surgical site and volume required to cover the area (in general, the maximum total dose is 266 mg). Bunionectomy: 7 mL into the tissues surrounding the osteotomy and 1 mL into the subcutaneous tissue of the surgical site (total dose = 8 mL [106 mg]) Hemorrhoidectomy : 30 mL (20 mL vial diluted with 10 mL NS) divided and administered as 6 injections of 5 mL each (total dose = 30 mL [266 mg]) Isolyte S (PH Route: IV, Total Inactive [place] 7.4) 1000 mL Volume: 1,000, 2016 Medi [place] (ANES) Start date: [place] 10/09/16 8:10:00 CDT, Stop date: 10/09/16 9:10:00 CDT Simethicone Notes: (Same as: No Longer 10/09/ H Jc Mylicon, Active 2016 Medical Phazyme, [place] Genasyme) GI cocktail Notes: G.I. No Longer [place] Cocktail = Active 2016 Medical antacid with [place] simethicone 22.5 mL - lidocaine viscous 7.5 mL sodium chloride 1,000 mL, Rate: No Longer [place] 0.9% 1000 ml INJ 75 ml/hr, Infuse Active 2016 [facility] 1,000 mL over: 13.3 hr, Center Route: IV, Dosing Weight 105.9 kg, Total Volume: 1,000, Start date: 10/08/16 23:32:00 CDT, Duration: 30 day, Stop date: 11/07/16 23:31:00 CDT Zofran Notes: (Same as: Inactive [place] Zofran) 2017 Medical MEDICATION WASTE Center Product Size: 4 mg Product Wasted: 0 mg Tums Notes: (Same As: [place] Longer [place] Tums) Calcium Active 2016 Medical Carbonate 500 mg Center = 200 mg elemental calcium Dose = mg calcium carbonate ( mg elemental calcium) heparin Notes: porcine [place] Longer [place] heparin Active [address] [place] [address] 24 HR Nifedipine Notes: (Same as: No Longer [facility] 60 MG Extended Adalat CC, Active 2016 Medica l Release Tablet Procardia XL) [address] Give on empty stomach. Take 1 hour before or 2 hours after meal; "Avoid grapefruit and grapefruit juice". Do not crush metoprolol Notes: (Same as: No Longer [facility] tartrate Lopressor) Active [address] [place] [address] Acetaminophen Notes: (Same as: Inactive [place] 325 MG / [place] 325/5) Do 2017 Medica l Hydrocodone not exceed Center Bitartrate 5 MG 4gm/day of Oral Tablet acetaminophen. [[place] 5/325] insulin, Notes: Roll in No Longer [place] isophane palms of hands Active 2016 [facility] gently; Do not Center shake vigorously. (Same as: Humulin N) Do not hold insulin without contacting prescriber WASTE: F/P - Black; E - Municipal Trash Bin Stable for 28 days at room temperature Expires in days from Da te Acetaminophen Notes: (Same as: No Longer [place] 325 MG / [place] 325/5) Do Active 2016 Medica l Hydrocodone not exceed Center Bitartrate 5 MG 4gm/day of Oral Tablet acetaminophen. [[place] 5/325] Morphine Notes: (Same No Longer [facility] as:MORPhine Active 2016 Medical Sulfate) Center Vancomycin 750 mg, Route: Inactive [place] IV, ONCE, Dosing 2016 Medical Weight 105.9, Center kg, Start date: 10/07/16 10:41:00 CDT, Stop date: 10/07/16 10:41:00 CDT, ABX Indication: Bacteremia Insulin regular 60 units) No Longer [facility] WASTE: F/P - Active 2017 Medical Black; E - Center Municipal Trash Bin Stable for 28 days at room temperature Expires in days from Da te Glucagon 1 mg, Route: IM, No Longer [place] Drug form: Active 2017 Medical PDR/INJ, PRN, Center Dosing Weight 105.9, kg, PRN Blood Glucose Results, Start date: 10/07/16 10:40:00 CDT, Duration: 30 day, Stop date: 11/06/16 10:39:00 CDT Dextrose 50% 25 gm, 50 mL, No Longer [facility] Syringe Route: IVP, Drug Active 2016 Medical Form: INJ, Center Dosing Weight 105.9, kg, PRN, PRN Blood Glucose Results, Start date: 10/07/16 10:40:00 CDT, Duration: 30 day, Stop date: 11/06/16 10:39:00 CDT Calcium Notes: (Same As: No Longer [place] Carbonate 500 MG Tums) Calcium Active 2016 edical Chewable Tablet Carbonate 500 mg Center = 200 mg elemental calcium Dose = mg calcium carbonate ( mg elemental calcium) potassium Notes: (Same as: No Longer [facility] phosphate-sodium Phos-NaK) Each Active 2017 Medical phosphate 250 1.5 gm pkt [address] mg-280 mg-160 mg 250mg oral powder for phosphorous. Mix reconstitution w/2.5oz water and stir. Magnesium Oxide Notes: (Same as: No Longer 10/07 [facility] Mag-Ox 400) Active 2017 Medical Magnesium oxide Center [id number] elemental magnesium Dose=____mg magnesium oxide (___mg elemental magnesium) Magnesium Notes: WASTE: No Longer [place] Sulfate F/P - Sink; E - Active 2016 Medical [facility] Tr[facility] Bin Calcium Notes: WASTE: No Longer [facility] Gluconate F/P - Sink; E - Active 2016 Medica l [facility] Tr[facility] Bin potassium Notes: (Same as: No Longer [facility] chloride Potassium Active 2016 Medical Chloride) Center sodium phosphate 15 mmol, 5 mL, No Longer [facility] + sodium Route: IVPB, Active 2016 Medical chloride 0.9% PRN, Dosing Center INJ 250 mL Weight 105.9, kg, PRN Abnormal Lab Result, Start date: 10/07/16 5:45:00 CDT, Duration: 30 day, Stop date: 11/06/16 5:44:00 CDT, FOR ICU USE ONLY potassium Notes: (Same as: No Longer [facility] phosphate + K Phosphate.) 1 Active 2016 Med ical sodium chloride mMol phoshate Ce nter 0.9% INJ 250 mL has 1.47 mEq potassium Infuse over 4 hours Hydralazine Notes: (Same as: Inactive [facility] Apresoline) Push 2017 Medical over 5 minutes Center Hydralazine Notes: (Same as: Inactive [facility] Apresoline) Push 2017 Medical over 5 minutes Center 24 HR Nifedipine Notes: (Same as: Inactive 10/07 [facility] 30 MG Extended Adalat CC, 2017 Medica l Release Tablet Procardia XL) [place] [address] Give on empty stomach. Take 1 hour before or 2 hours after meal; "Avoid grapefruit and grapefruit juice". Do not crush Lisinopril Notes: (Same as: No Longer [facility] Prinivil, Active 2016 Medical Zestril) Center Isosorbide Notes: (Same No Longer [place] Dinitrate as:Isordil) Active 2016 Medical Take on empty Center stomach/ full glass of water Doxazosin Notes: (Same as: No Longer [facility] Cardura) Active 2016 Medical Center metoprolol 50 mg, Route: Inactive [place] tartrate PO, Drug form: 2017 Medical TAB, BID, Dosing Center Weight 105.9, kg, Start date: 10/06/16 20:00:00 CDT, Duration: 30 day, Stop date: 11/05/16 17:00:00 CDT metoprolol Notes: (Same as: Inactive [facility] tartrate Lopressor) 2017 Medical Center 24 HR Nifedipine Notes: (Same as: Inactive 10/06 [facility] 60 MG Extended Adalat CC, 2017 Medica l Release Tablet Procardia XL) [place] Give on empty stomach. Take 1 hour before or 2 hours after meal; "Avoid grapefruit and grapefruit juice". Do not crush Labetalol 10 mg, Route: In[place] IV, ONCE, Dosing 2017 Medical Weight 105.9, Center kg, Start date: 10/06/16 13:16:00 CDT, Stop date: 10/06/16 13:16:00 CDT Glucagon 1 mg, Route: IM, No Longer [place] Drug form: Active 2016 Medical PDR/INJ, PRN, Center Dosing Weight 105.9, kg, PRN Blood Glucose Results, Start date: 10/06/16 10:22:00 CDT, Duration: 30 day, Stop date: 11/05/16 10:21:00 CDT Dextrose 50% 12.5 gm, 25 mL, No Longer [facility] Syringe Route: IVP, Drug Active 2016 Medical Form: INJ, Center Dosing Weight 105.9, kg, PRN, PRN Blood Glucose Results, Start date: 10/06/16 10:22:00 CDT, Duration: 30 day, Stop date: 11/05/16 10:21:00 CDT Insulin, Aspart, Notes: Roll in No Longer [facility] Human palms of hands Active 2017 Medical gently; Do not Center shake vigorously. (Same as: NovoLOG) "single patient use only" WASTE: F/P - Black; E - Municipal Trash Bin Stable for 28 days at room temperature. Expires in days from Da te Docusate Notes: (Same as: No Longer [facility] [place] Colace) (Do Not Active 2017 Medical Crush) Center Ondansetron Notes: (Same as: No Longer [facility] Zofran) Active 2017 Medical MEDICATION WASTE Center Product Size: 4 mg Product Wasted: ___ mg Morphine Notes: (Same No Longer [place] as:MORPhine Active 2017 Medical Sulfate) Center Zofran Notes: (Same as: Inactive [place] Zofran) 2017 Medical MEDICATION WASTE Center Product Size: 4 mg Product Wasted: ___ mg Morphine Notes: (Same Inactive [facility] as:MORPhine 2017 Medical Sulfate) [place] metoprolol Notes: (Same as: Inactive tartrate Lopressor) 2015 Nifedipine 20 MG Notes: (Same as: Inactive 01/24 Oral Capsule Adalat, 2015 Procardia) "Avoid grapefruit and grapefruit juice influenza virus Notes: (Same as: Inactive vaccine, Fluzone 2015 inactivated Quadrivalent, Fluarix Quadrivalent) For 3 years of age and older (0.5 mL IM) Shake well before use Streptococcus Notes: Lightly Inactive pneumoniae roll vial (DO [address] [facility] [address] serotype 1 NOT SHAKE) capsular antigen before diphtheria administration. [id number] protein (Same as: conjugate Prevnar 13) vaccine / Streptococcus pneumoniae serotype 14 capsular antigen diphtheria [id number] protein conjugate vaccine / Streptococcus pneumoniae serotype 18C capsular antigen d Enoxaparin Notes: (Same as: Inactive Lovenox) 2015 potassium Notes: Infuse at No Longer chloride a rate of 10 Active 2015 [facility] mEq/hr. (Same as: KCL) potassium 40 mEq, Route: Inactive chloride IV, ONCE, Dosing 2015 ast Weight 115.045, kg, Start date: 01/24/16 19:06:00 CDT, Stop date: 01/24/16 19:06:00 CDT Labetalol Notes: (Same as: No Longer Normodyne, Active 2015 Trandate) Push over 2 minutes Give bolus over 2-3 minutes. Vasotec Notes: (Same as: No Longer Vasotec-IV) Active 2015 Insulin, Aspart, Notes: Roll in No Longer [place] palms of hands Active 2015 gently; Do not shake vigorously. (Same as: NovoLOG) "single patient use only" WASTE: F/P - Black; E - Municipal Trash Bin Stable for 28 days at room temperature. Expires in days from Da te Dextrose 50% 25 gm, 50 mL, No Longer Syringe Route: IVP, Drug Active [address] Form: INJ, Dosing Weight 115.045, kg, PRN, PRN Blood Glucose Results, Start date: 01/24/16 17:41:00 CDT, Duration: 30 day, Stop date: 02/23/16 17:40:00 CDT Glucagon 1 mg, Route: IM, No Longer Drug form: Active 2015 [facility] PDR/INJ, PRN, Dosing Weight 115.045, kg, PRN Blood Glucose Results, Start date: 01/24/16 17:41:00 CDT, Duration: 30 day, Stop date: 02/23/16 17:40:00 CDT Hydralazine Notes: (Same as: Inactive Apresoline) Push [address] [facility] 5 minutes Labetalol 10 mg, Route: Inactive IVP, Drug form: 2015davide t INJ, ONCE, Dosing Weight 115.045, kg, Start date: 01/24/16 14:23:00 CDT, Stop date: 01/24/16 14:23:00 CDT Ondansetron 4 mg, Route: No Longer IVP, ONCE, Active 2015 [facility] Dosing Weight 115.045, kg, PRN Nausea & Vomiting, Start date: 01/24/16 14:21:00 CDT Promethazine 6.25 mg, Route: No Longer H IVPB, ONCE, Active 2015 [facility] Dosing Weight 115.045, kg, PRN Nausea & Vomiting, Start date: 01/24/16 14:21:00 CDT Naloxone 0.4 mg, Route: No Longer IVP, Q2MIN, Active 2015 [facility] Dosing Weight 115.045, kg, PRN Narcotic Reversal, Start date: 01/24/16 14:21:00 CDT, Duration: 8 doses or times, Stop date: Limited # of times Flumazenil 0.2 mg, Route: No Longer IVP, PRN, Dosing Active 2015 [facility] Weight 115.045, kg, PRN Benzodiazepine Reversal, Initial dose, Start date: 01/24/16 14:21:00 CDT, Duration: 30 day, Stop date: 02/23/16 14:20:00 CDT Ketorolac 30 mg, Route: No Longer IVP, ONCE, Active 2015 [facility] Dosing Weight 115.045, kg, Start date: 01/24/16 14:21:00 CDT, Duration: 1 doses or times, Stop date: 01/24/16 14:21:00 CDT Hydromorphone 0.5 mg, Route: No Longer H IVP, Q5Min, Active 2015 [facility] Dosing Weight 115.045, kg, PRN Pain Score 7-10, Start date: 01/24/16 14:21:00 CDT, Duration: 4 doses or times, Stop date: Limited # of times Fentanyl 25 microgram, No Longer Route: IVP, Active 2015 [facility] Q5Min, Dosing Weight 115.045, kg, PRN Pain Score 4-6, Start date: 01/24/16 14:21:00 CDT, Duration: 4 doses or times, Stop date: Limited # of times glycopyrrolate Route: IV, Drug Inactive (ANES) form: INJ, ONCE, 2015 [facility] Stop date: 01/24/16 14:00:00 CDT neostigmine Route: IV, Drug Inactive (ANES) form: INJ, ONCE, 2015 [facility] Stop date: 01/24/16 14:00:00 CDT sodium chloride 1,000 mL, Rate: No Longer 0.9% 1000 ml INJ 100 ml/hr, Active 2015 [facility] 1,000 mL Infuse over: 10 hr, Route: IV, Dosing Weight 115.045 kg, Total Volume: 1,000, Start date: 01/24/16 13:52:00 CDT, Duration: 30 day, Stop date: 02/23/16 13:51:00 CDT acetaminophen-co Notes: Do not No Longer deine #3 exceed 4gm/day Active 2015 [facility] t of acetaminophen. (Same as: Tylenol with Codeine # 3) Morphine Notes: (Same No Longer as:MORPhine Active 2015 [facility] ) rocuronium Route: IV, Drug Inactive (ANES) form: INJ, ONCE, 2015 [facility] Stop date: 01/24/16 13:37:00 CDT propofol (ANES) Route: IV, Drug Inactive form: INJ, ONCE, 2015 [facility] Stop date: 01/24/16 13:37:00 CDT lidocaine (ANES) Route: IV, Drug Inactive form: INJ, ONCE, 2015 [facility] Stop date: 01/24/16 13:37:00 CDT protamine (ANES) Route: IV, Drug Inactive (ANES) form: INJ, Start 2015 date: 01/24/16 13:34:00 CDT, Stop date: 01/24/16 14:34:00 CDT midazolam (ANES) Route: IV, Drug Inactive form: SOLN, 2015 ONCE, Stop date: 01/24/16 13:32:00 CDT fentaNYL (ANES) Route: IV, Drug Inactive form: INJ, ONCE, 2015 [facility] Stop date: 01/24/16 13:32:00 CDT ondansetron Route: IV, Drug Inactive (ANES) form: INJ, ONCE, 2015 [facility] Stop date: 01/24/16 13:32:00 CDT heparin (ANES) Route: IV, Drug Inactive form: INJ, ONCE, 2015 [facility] Stop date: 01/24/16 13:32:00 CDT acetaminophen Route: IV, Drug Inactive H (ANES) (ANES) form: INJ, Start 2015 S outheast date: 01/24/16 13:26:00 CDT, Stop date: 01/24/16 14:26:00 CDT sodium Route: IV, Drug Inactive bicarbonate form: INJ, Start 2015 [facility] (ANES) (ANES) date: 01/24/16 13:19:00 CDT, Stop date: 01/24/16 14:19:00 CDT LR 1000 mL INJ Route: IV, Total Inactive (ANES) Volume: 1,000, 2015 [facility] Start date: 01/24/16 13:09:00 CDT, Stop date: 01/24/16 14:09:00 CDT vancomycin Route: IV, Drug Inactive (ANES) (ANES) form: INJ, Start 2015 [place] date: 01/24/16 12:44:00 CDT, Stop date: 01/24/16 13:44:00 CDT ceFAZolin (ANES) Route: IV, Drug Inactive (ANES) form: INJ, [facility] date: 01/24/16 12:42:00 CDT, Stop date: 01/24/16 13:42:00 CDT sodium chloride Route: IV, Total Inactive 0.9% 1000 ml INJ Volume: 1,000, 2015 [facility] (ANES) Start date: 01/24/16 12:22:00 CDT, Stop date: 01/24/16 13:22:00 CDT Acetylcysteine Notes: send to Inactive H 200 MG/ML 2F 2015 [facility] Inhalant Solution Ancef Notes: Same as: No Longer Ancef Active 2015 [facility] Vancomycin 2001 mg: infuse No Longer over 2.5 hours Active 2015 [facility] MEDICATION WASTE Product Size: 1000 mg Product Wasted: ___ mg rivaroxaban 20 20 mg = 1 tab, Active MG Oral Tablet PO, QPM, # 30 2016 [facility] [Xarelto] tab, 3 Refill(s) 3 ML Insulin 5 unit, SUB-Q, Active Lispro 100 Bedtime, # 3 mL, 2015 [facility] UNT/ML Pen 0 Refill(s) Injector [Humalog] Acetylcysteine 900 mg, 4.5 mL, No Longer 200 MG/ML Route: PO, Drug Active 2015 [facility] ast Inhalant form: SOLN, PRN, Solution Dosing Weight 114.2, kg, PRN Abnormal Lab Result, Start date: 01/17/16 11:12:00 CDT, Duration: 2 day, Stop date: 01/19/16 11:11:00 CDT sodium chloride 1,000 mL, Rate: No Longer 0.9% 1000 ml INJ 150 ml/hr, Active 2015 [facility] 1,000 mL Infuse over: 6.7 hr, Route: IV, Dosing Weight 114.2 kg, Total Volume: 1,000, Start date: 01/17/16 11:12:00 CDT, Duration: 30 day, Stop date: 02/16/16 11:11:00 CDT Furosemide 40 MG Notes: (Same as: Inactive 11/13 [place] Oral Tablet Lasix) September 2015 Medical [Lasix] cause GI upset. Center Give with food or milk. Aspirin Enteric 81 mg = 1 tab, Active [place] Coated 81 mg PO, Daily, # 60 2016 Med ical oral delayed tab, 1 Refill(s) Ce nter release tablet Insulin, Aspart, 4 unit, SUB-Q, Active [facility] Human TID-Before 2016 Medical Meals, PRN Blood Center Glucose Results, 0 Refill(s) Nitroglycerin 0.4 mg = 1 tab, Active [place] 0.4 MG SL, Q5Min, PRN 2016 Medical Sublingual Chest Pain, # 30 Cent er Tablet tab, 0 Refill(s) 24 HR Nifedipine 60 mg = 1 tab, Active [place] 60 MG Extended PO, Q12H, # 60 2016 Ms dical Release Tablet tab, 0 Refill(s) Center 24 HR Nicotine = 1 patch, TOP, Active [place] 0.875 MG/HR Daily, X 7 day, 2016 [facility] [place] Transdermal # 7 patch, 0 Center Patch [Nicoderm Refill(s) C-Q] doxazosin 2 mg 2 mg = 1 tab, Active [place] oral tablet PO, BID, # 30 2016 Medica l tab, 1 Refill(s) Center Metronidazole 500 mg = 1 tab, Active [place] 500 MG Oral PO, [id number], # 15 2016 Med ical Tablet tab, 0 Refill(s) Center metoprolol 50 mg = 1 tab, Active [place] tartrate 50 mg PO, Q12H, # 60 2016 Me dical oral tablet tab, 0 Refill(s) [address] isosorbide 20 mg = 2 tab, Active [place] dinitrate 10 mg PO, TID, # 90 2016 Me dical oral tablet tab, 0 Refill(s) [address] Insulin Aspart 1 unit, SUB-Q, Active [place] 100 unit/ml - TID-Before 2015 Medical (Medium CD) Meals, PRN Blood [place] [facility] Glucose Results, see Sliding Scale instructions for dosing, # 3 mL, 1 Refill(s) Furosemide 40 MG 40 mg = 1 tab, Active [place] Oral Tablet PO, Daily, # 30 2016 Medi [place] [Lasix] tab, 1 Refill(s) Center Flonase 0.05 100 microgram = Active [place] mg/inh nasal 2 spray, Each 2016 Medic al spray Affected Center Nostril, Daily, # 1 ea, 0 Refill(s) ezetimibe 10 mg 10 mg = 1 tab, Active 11/13/ H [place] oral tablet PO, Daily, # 30 2015 Medi [place] tab, 0 Refill(s) Center ciprofloxacin 500 mg = 1 tab, Active [place] 500 mg oral PO, [id number], # 2016 Medic al tablet 11 tab, 0 Center Refill(s) Lasix Notes: (Same as: [place] Lasix) Active 2015 Medical MEDICATION WASTE Center Product Size: 40 mg Product Wasted: ___ mg Insulin, Aspart, Notes: Roll in No Longer [place] Human palms of hands Active 2015 Medical gently; Do not Center shake vigorously. (Same as: NovoLOG) "single patient use only" WASTE: F/P - Black; E - Municipal Trash Bin Stable for 28 days at room temperature. Expires in days from Da te Dextrose 50% 25 gm, 50 mL, No Longer [place] Syringe Route: IVP, Drug Active 2015 Medical Form: INJ, Center Dosing Weight 114.2, kg, PRN, PRN Blood Glucose Results, Start date: 11/13/15 21:24:00 CDT, Duration: 30 day, Stop date: 12/13/15 21:23:00 CDT Glucagon 1 mg, Route: IM, No Longer [place] Drug form: Active 2015 [facility] PDR/INJ, PRN, Center Dosing Weight 114.2, kg, PRN Blood Glucose Results, Start date: 11/13/15 21:24:00 CDT, Duration: 30 day, Stop date: 12/13/15 21:23:00 CDT senna 8.6 mg Notes: (Same as: No Longer [place] oral tablet Senokot) Active 2015 [facility] Lactulose 667 Notes: (Same No Longer [place] MG/ML Oral as:Chronulac) Active 2015 [facility] Solution [place] Dulcolax Notes: (Same As: No Longer [place] Laxative Dulcolax, Active 2015 [facility] Bisco-Lax) [place] Milk of Magnesia Notes: (Same as: No Longer 11/02 [place] Milk of Active 2015 [facility] Magnesia, MOM) [place] Reglan Notes: (Same as: [place] Reglan) Active 2015 [facility] Lasix Notes: (Same as: Inactive [place] as Lasix) 2016 [facility] Magnesium Oxide Notes: (Same as: Inactive [place] Mag-Ox 400) 2016 [facility] Magnesium oxide [place] [id number] elemental magnesium Dose=____mg magnesium oxide (___mg elemental magnesium) Simethicone Notes: (Same as: No Longer H [place] Mylicon) Active 2015 [facility] heparin sodium, Notes: porcine No Longer [place] porcine 2500 heparin Active 2015 [facility] UNT/ML Center Injectable Solution Flonase 0.05 Notes: (Same as: No Longer [place] mg/inh nasal Flonase) Active 2016 [facility] spray [place] Protonix Notes: For IV Inactive [place] push 2016 [facility] reconstitute [place] with 10 ml 0.9% sodium chloride and push over 2 minutes. (Same as: Protonix) metoprolol Notes: (Same as: No Longer [place] tartrate Lopressor) Active 2016 Medical [place] 24 HR Nifedipine Notes: (Same as: No Longer [place] 60 MG Extended Adalat CC, Active 2015 Medica l Release Tablet Procardia XL) [address] Give on empty stomach. Take 1 hour before or 2 hours after meal; "Avoid grapefruit and grapefruit juice". Do not crush Sodium Chloride 1,000 mL, 1,000 Inactive [place] 0.154 MEQ/ML ml/hr, Infuse 2015 Medic al Injectable Over: 1 hr, [place] Solution Route: IV, 1,000, Drug form: INJ, ONCE, Priority: STAT, Dosing Weight 114.2 kg, Start date: 11/11/15 1:12:00 CDT, Duration: 1 doses or times, Stop date: 11/11/15 1:12:00 CDT Morphine Notes: (Same No Longer [place] as:MORPhine Active 2015 Medical Sulfate) Center Metoprolol Notes: (Same as: No Longer [place] Lopressor) Push Active 2015 Medical over 2 minutes Center potassium Notes: (Same as: Inactive [place] chloride KCL) Infuse no 2015 Medical faster than 10 Center mEq/hr if given peripherally. Zofran Notes: (Same as: No Longer Jayson arellano Zofran) Active 2015 Medical MEDICATION WASTE Center Product Size: 4 mg Product Wasted: __0_ mg Maalox Advanced Notes: (aluminum No Longer 11/09 [place] Regular Strength hydroxide-magnes Active 2015 Medical SUSP ium Center hyd-simethicone [id number]/5ml 30 ml ud SIN) Acetylcysteine 1,200 mg, 6 mL, No Longer [place] 200 MG/ML Route: PO, Drug Active 2015 Medica l Inhalant form: SOLN, [place] Solution Q12H, Dosing Weight 114.2, kg, Start date: 11/09/15 21:00:00 CDT, Duration: 4 doses or times, Stop date: 11/11/15 9:00:00 CDT sodium chloride 1,000 mL, Rate: No Longer [place] 0.9% 1000 ml INJ 75 ml/hr, Infuse Active 2015 Medical 1000 mL over: 13.3 hr, Center Route: IV, Dosing Weight 114.2 kg, Total Volume: 1,000, Start date: 11/09/15 15:50:00 CDT, Stop date: 11/12/15 6:00:00 CDT Magnesium Notes: WASTE: [place] Sulfate F/P - Sink; E - 2016 Medical [facility] Trash [place] Bin metoprolol Notes: (Same as: Inactive [place] tartrate Lopressor) 2016 Medical 12.5mg=1/4 X 50 Center mg tab. Heparin - one 4,000 unit, 4 Inactive [place] time bolus for mL, Route: IV, 2016 Ms dical [facility] Drug form: INJ, Center ONCE, Dosing Weight 114.2, kg, Priority: STAT, Start date: 11/09/15 9:32:00 CDT, Stop date: 11/09/15 9:32:00 CDT Heparin 60 Route: IVP, PRN, No Longer [facility] unit/kg Bolus 4,000 unit, 4 Active 2015 [facility]i [place] (Heparin Dosing mL, Drug form: C enter Weight) INJ, PRN, Heparin Protocol, Start date: 11/09/15 9:32:00 CDT Stop date: 12/09/15 9:31:00 CDT, 30 day Heparin 30 Route: IVP, PRN, No Longer [facility] unit/kg Bolus 2,700 unit, 2.7 Active 2015 Ms dical (Heparin Dosing mL, Drug form: C enter Weight) INJ, PRN, Heparin Protocol, Start date: 11/09/15 9:32:00 CDT Stop date: 12/09/15 9:31:00 CDT, 30 day heparin additive 500 mL, Rate: No Longer [facility] 25,000 unit [12 21.48 ml/hr, Active 2015 Med ical unit/kg/hr] + Infuse over: Cente r Premix Diluent 23.3 hr, Route: Dextrose 5% 500 IV, Dosing mL Weight 89.48 kg, Total Volume: 500 mL, Start date: 11/09/15 9:32:00 CDT, Duration: 30 day, Stop date: 12/09/15 9:31:00 CDT sennosides, ALF Notes: (Same as: No Longer 11/08 [place] Senokot) Active 2016 Medical [place] Calcium Notes: WASTE: Inactive [place] Gluconate F/P - Sink; E - 2016 Medica l [facility] Bin potassium Notes: (Same as: Inactive [place] phosphate + K Phosphate.) 1 2015 Med ical sodium chloride mMol phoshate Ce nter 0.9% INJ 250 mL has 1.47 mEq potassium Infuse over 4 hours potassium Notes: (Same as: Inactive [place] chloride KCL) Infuse no 2016 Medical faster than 10 Center mEq/hr if given peripherally. Lorazepam 1 mg, Route: IV, Inactive [place] ONCE, Dosing 2016 Medical Weight 114.2, Center kg, Start date: 11/09/15 2:53:00 CDT, Stop date: 11/09/15 2:53:00 CDT Morphine 4 mg, Route: Inactive [facility] IVP, ONCE, 2016 Medical Dosing Weight Center 114.2, kg, Start date: 11/09/15 2:44:00 CDT, Stop date: 11/09/15 2:44:00 CDT Morphine 2 mg, Route: Inactive [facility] IVP, ONCE, 2016 Medical Dosing Weight Center 114.2, kg, Start date: 11/09/15 2:43:00 CDT, Stop date: 11/09/15 2:43:00 CDT Nicardipine Notes: Same as: No Longer [facility] Cardene Active 2015 Medical Concentration: Center (0.2 mg /1 ml ) esmolol Notes: (Same as: [place] Brevibloc) 10 Active 2015 Medical mg/ml conc. Center Ativan 1 mg, Route: Inactive [facility] IVP, Drug form: 2016 Medical INJ, ONCE, Center Dosing Weight 114.2, kg, PRN Anxiety, Start date: 11/09/15 0:52:00 CDT Morphine Notes: (Same Inactive [facility] as:MORPhine 2016 Medical Sulfate) Center Metronidazole Notes: (Same as: No Longer [facility] Flagyl) Take Active 2015 Medical with food/ avoid Center alcohol Ciprofloxacin Notes: May [place] Longer [place] interfere Active 2015 Medical w/enteral Center feedings - Take 1 hr before or 2 hrs after antacids, dairy pdt & minerals. On empty stomach. Ativan Notes: (Same as: Inactive [place] as Ativan) 2016 Medical Center Tylenol Notes: Do not No Longer [facility] exceed 4 gm/day. Active 2016 Medical (Same as: Center Tylenol) Nitroglycerin Notes: (Same No Longer [facility] as:Nitroquick, Active 2015 Medical Nitrostat) "Do Center Not Crush" Sublingual tablet Morphine Notes: (Same Inactive [facility] as:MORPhine 2016 Medical Sulfate) Center Hydralazine Notes: (Same as: No Longer 11/06/ [facility] Apresoline) Push Active 2015 Medical over 5 minutes Center heparin sodium, Notes: porcine No Longer [facility] porcine 2500 heparin Active 2015 [facility] UNT/ML Center Injectable Solution Metronidazole Notes: (Same as: No Longer [facility] Flagyl) Avoid Active 2015 Medical alcohol. [place] Vancomycin 2001 mg: infuse No Longer [facility] over 2.5 hours Active 2015 Medical MEDICATION Center WASTE Product Size: 1000 mg Product Wasted: ___ mg Zetia Notes: (Same as: [place] Zetia) Active 2016 Medical Center Isosorbide Notes: (Same No Longer [place] as Dinitrate as:Isordil) Active 2015 Medical Take on empty Center stomach/ full glass of water Aspirin Notes: Do not No Longer [facility] crush or chew. Active 2015 Medical (Same As: [place] Ecotrin) Doxazosin Notes: (Same as: No Longer [facility] Cardura) Active 2016 Medical Center Calcium 2,000 mg, Route: Inactive [place] Gluconate IVPB, Drug form: 2016 Medic al INJ, ONCE, Center Dosing Weight 114.2, kg, Start date: 11/07/15 5:59:00 CDT, Stop date: 11/07/15 5:59:00 CDT Magnesium 1 gm, Route: Inactive [place] Sulfate IVPB, Drug form: 2016 Medical INJ, ONCE, Center Dosing Weight 114.2, kg, Start date: 11/07/15 5:58:00 CDT, Stop date: 11/07/15 5:58:00 CDT potassium 30 mmol, Route: Inactive [place] phosphate IVPB, ONCE, 2016 Medical Dosing Weight Center 114.2, kg, Start date: 11/07/15 5:58:00 CDT, Stop date: 11/07/15 5:58:00 CDT Nicotine Notes: (Same as: No Longer [place] Habitrol) Active 2015 Medical "Remove old Center patch before application of new patch" WASTE: F/P - P Waste Black; E - P Waste Black metoprolol Notes: (Same as: No Longer [place] tartrate Lopressor) Active 2016 Medical Center Amlodipine Notes: (Same as: No Longer [facility] Norvasc) Active 2016 Medical Center Protonix Notes: For IV [place] Longer [place] push Active 2015 Medical reconstitute Center with 10 ml 0.9% sodium chloride and push over 2 minutes. (Same as: Protonix) Labetalol 10 mg, Route: [place]active [place] IV, ONCE, Dosing 2015 Medical Weight 114.2, Center kg, Start date: 11/06/15 11:34:00 CDT, Stop date: 11/06/15 11:34:00 CDT Vancomycin 2001 mg: infuse No Longer Jc over 2.5 hours Active 2015 Medical MEDICATION Center WASTE Product Size: 1000 mg Product Wasted: ___ mg Flagyl Notes: (Same as: [place] Flagyl) Avoid Active 2015 Medical alcohol. Center cefepime Notes: (Same As: [place] Longer [place] Maxipime) Active 2015 Medical MEDICATION WASTE Center Product Size: 1000 mg Product Wasted: ___ mg Docusate Notes: (Same as: No Longer [place] Colace) (Do Not Active 2015 Medical Crush) Center Enoxaparin 30 mg, Route: Inactive [place] SUB-Q, Drug 2015 Medical form: INJ, Center [id number], Dosing Weight 114.2, kg, Start date: 11/06/15 4:00:00 CDT, Duration: 30 day, Stop date: 12/05/15 4:00:00 CDT heparin Notes: porcine Inactive J[place] heparin 2016 Medical Center Acetaminophen Notes: (Same as: No Longer [place] 325 MG / [place] 325/5) Do Active 2015 Medica l Hydrocodone not exceed [place] Bitartrate 5 MG 4gm/day of Oral Tablet acetaminophen. Ondansetron Notes: (Same as: No Longer [facility] Zofran) Active 2015 Medical MEDICATION WASTE Center Product Size: 4 mg Product Wasted: ___ mg Acetaminophen Notes: Do not No Longer [place] exceed 4 gm/day. Active 2015 Medical (Same as: [place] Tylenol) sodium chloride 1,000 mL, Rate: No Longer [place] 0.45% 1000 ml 30 ml/hr, Infuse Active 2015 edical INJ 1,000 mL over: 33.3 hr, Cent er Route: IVPB, Dosing Weight 114.2 kg, Total Volume: 1,000, Start date: 11/06/15 3:28:00 CDT, Stop date: 12/06/15 3:27:00 CDT niCARdipine 40 Notes: Same as: No Longer [place] mg/ NS 200 ml IV Cardene Active 2015 [facility] Soln (premix) 40 Concentration: Center mg (0.2 mg /1 ml ) Dextrose 50% 12.5 gm, 25 mL, Inactive [place] Syringe Route: IVP, Drug 2016 Medical Form: INJ, Center Dosing Weight 114.2, kg, PRN, PRN Blood Glucose Results, Start date: 11/06/15 3:17:00 CDT, Duration: 30 day, Stop date: 12/06/15 3:16:00 CDT Glucagon 1 mg, Route: IM, Inactive [place] Drug form: 2015 Medical PDR/INJ, PRN, Center Dosing Weight 114.2, kg, PRN Blood Glucose Results, Priority: STAT, Start date: 11/06/15 3:17:00 CDT, Duration: 30 day, Stop date: 12/06/15 3:16:00 CDT Xarelto Notes: (Same as: Inactive [place] as Xarelto) 2016 Medical Administer with Center food Cardura Notes: (Same as: Inactive [place] as Cardura) 2016 Medical Center Aspirin Enteric 81 mg = 1 tab, Active H [place] Coated 81 mg PO, Daily, # 60 2016 Med ical oral delayed tab, 1 Refill(s) Ce nter release tablet rivaroxaban 20 20 mg, PO, QPM, Active H [place] MG Oral Tablet # 60 tab, 1 2016 Medic al [Xarelto] Refill(s) [place] Praluent Praluent Inactive [facility] (alirocumab) 75 (alirocumab) 75 2016 Medical mg/ml mg/ml, 75 mg, Center Drug form: MISC, Route: SUB-Q, Q14D, 06/11/15 12:00:00, Duration: 30 day, Stop date: 07/09/15 12:00:00 montelukast Notes: (Same Inactive [place] as:[place]) 2016 [facility] 1 ML alirocumab 75 mg, SUB-Q, Active [facility] 75 MG/ML Q14D, 0 2015 Medical Auto-Injector Refill(s) [place] [Praluent] Praluent Praluent No Longer [facility] (alirocumab) (alirocumab), 75 Active 2015 Ms dical mg/mL, Drug Center form: INJ, Route: SUB-Q, Q14D, 06/10/15 18:00:00, Duration: 30 day, Stop date: 07/08/15 9:00:00, Patient's Own Meds Sotalol Notes: (Same As: [place] Longer [place] Hydrochloride Betapace) Active 2015 Medical 160 MG Oral Center Tablet Losartan Notes: (Same as: No Longer [place] Cozaar) Active 2015 [facility] Amlodipine Notes: (Same as: No Longer [facility] Norvasc) Active 2015 [facility] sotalol 160 mg 160 mg = 1 tab, Active H [place] oral tablet PO, BID, 0 2015 Medical Refill(s) Center Aspirin Enteric 81 mg = 1 tab, No Longer [place] Coated 81 mg PO, Daily, 0 Active 2015 Medica l oral delayed Refill(s) Center release tablet doxazosin 2 mg 2 mg = 1 tab, Active [facility] oral tablet PO, BID, 0 2015 Medical Refill(s) Center losartan 100 mg 100 mg = 1 tab, Active [facility] oral tablet PO, Daily, 0 2015 Medical Refill(s) Center Metformin 1,000 mg = 1 Active [facility] hydrochloride tab, PO, BID, 0 2015 Ms dical 1000 MG Oral Refill(s) [place] Tablet montelukast 10 10 mg = 1 tab, Active [facility] mg oral tablet PO, QAM, 0 2015 Medica l Refill(s) Center amLODIPine 10 mg 10 mg = 1 tab, Active [facility] oral tablet PO, BID, 0 2015 Medical Refill(s) Center GlipiZIDE XL 5 5 mg = 1 tab, Active [facility] mg oral tablet, PO, BID, 0 2015 Medic al extended release Refill(s) Cente r Aspirin Notes: Take with No Longer [place] food. Active 2015 [facility] Saline Flush Notes: (Same as: No Longer [facility] 0.9% BD Posiflush) Active 2015 [facility] heparin Notes: porcine [facility] Long[facility] heparin Active 2015 [facility] Nicotine Notes: (Same as: No Longer [place] Habitrol) Active 2015 Medical "Remove old Center patch before application of new patch" WASTE: F/P - P Waste Black; E - P Waste Black remove patch Notes: Remove No Longer [facility] old patch before Active 2015 Medical application of [place] new patch. WASTE: F/P - P Waste Black; E - P Waste Black Regular Insulin, 60 units) No Longer 06/10/ [facility] Human 100 UNT/ML WASTE: F/P - Active 2015 Ms dical Injectable Black; E - Center Solution Municipal Trash Bin Stable for 28 days at room temperature Expires in days from Da te Dextrose 50% 6.25 gm, 12.5 No Longer [facility] Syringe mL, Route: IVP, Active 2015 Medical Drug Form: INJ, Center Dosing Weight 115, kg, PRN, PRN Abnormal Lab Result, Start date: 06/09/15 23:20:00, Duration: 30 day, Stop date: 07/09/15 23:19:00 Aspirin Notes: (Do Not Inactive [facility] Crush) Do not 2016 Medical crush or chew. Center Saline Flush Notes: (Same as: No Longer [facility] 0.9% BD Posiflush) Active 2015 [facility] enalapril Notes: (Same as: No Longer [facility] Vasotec-IV) Active 2015 [facility] Labetalol 105 mmHg, No Longer Jc Priority: Active 2016 Medical Routine, Start Center date: 06/09/15 22:47:00, Duration: 30 day, Stop date: 07/09/15 22:46:00 Sodium Chloride 500 mL, 500 Inactive [facility] 0.154 MEQ/ML ml/hr, Infuse 2016 Medic al Injectable Over: 1 hr, [place] Solution Route: IV, ONCE, Priority: STAT, Dosing Weight 115 kg, Start date: 06/09/15 20:59:00, Duration: 1 doses or times, Stop date: 06/09/15 20:59:00 iodixanol 85 mL, Route: Inactive [place] IVP, Drug Form: 2015 [facility] SOLN, Dosing Center Weight 115, kg, ONCALL, STAT, Start date: 06/09/15 20:12:00, Duration: 1 doses or times, Dose = 2.2ml/kg, Max dose = 100ml -- "To be infused by Radiology Staff ONLY" iodixanol 0 mL, Route: Inactive [facility] IVP, Drug Form: 2015 [facility] SOLN, Dosing Center Weight 115, kg, ONCALL, STAT, Start date: 06/09/15 20:11:00, Duration: 1 doses or times, Dose = 2.2ml/kg, Max dose = 100ml -- "To be infused by Radiology Staff ONLY" Iohexol 85 mL, Route: Inactive [facility] IVP, Drug Form: 2015 [facility] SOLN, Dosing Center Weight 115, kg, ONCALL, STAT, Start date: 06/09/15 19:18:00, Duration: 1 doses or times, Dose = 2.2ml/kg, Max dose = 100ml -- "To be infused by Radiology Staff ONLY" clonidine 0.3 mg 0.3 mg, 1 tab, PO No Longer [place] 01/14 [facility] oral tablet Route: PO, Drug Active 2011 [facility] [place] form: TAB, Q8H, Center Dosing Weight 113.636, kg, Start date: 01/15/12 16:00:00, Duration: 30 day, Stop date: 02/14/12 8:00:00 clonidine 0.3 mg 0.3 mg, 1 tab, PO Active [facility] [place] oral tablet PO, Q8H, 90 tab, 2011 Med ical Substitution Center Allowed, TAB metoprolol 25 mg 75 mg, 3 tab, PO Active [facility] [place] oral tablet PO, Q8H, 90 tab, 2011 Med ical Substitution Center Allowed, TAB Flomax 0.4 mg 0.4 mg, 1 cap, PO Active [place] oral capsule PO, Daily, 2011 Medic al cap, Center Substitution Allowed, CAP glipiZIDE 5 mg 5 mg, 1 tab, PO, PO Active [facility]ye [place] oral tablet Daily, 30 tab2011 Medic al Substitution Center Allowed, TAB Plavix 75 mg 75 mg, 1 tab, PO Active [place] oral tablet PO, Daily, 30 2011 Medica l tab, Center Substitution Allowed, TAB metFORmin 1000 1,000 mg, 1 tab, PO Active Popeye [place] mg oral tablet PO, BID, 60 tab, 2011 Medical Substitution Center Allowed, TAB metoprolol 75 mg, 3 tab, PO No Longer [place] tartrate Route: PO, Drug Active 2011 Medical form: TAB, Q8H, Center Dosing Weight 113.636, kg, Priority: NOW, Start date: 01/15/12 15:13:00, Duration: 30 day, Stop date: 02/14/12 8:00:00 Flomax 0.4 mg, 1 cap, PO No Longer [facility] [place] Route: PO, Drug Active 2011 Medical form: CAP, Center Daily, Dosing Weight 113.636, kg, Start date: 01/15/12 9:00:00, Duration: 30 day, Stop date: 02/13/12 9:00:00 Plavix 75 mg, 1 tab, PO No Longer [place] Route: PO, Drug Active 2011 Medical form: TAB, Center Daily, Dosing Weight 113.636, kg, Start date: 01/15/12 9:00:00, Duration: 30 day, Stop date: 02/13/12 9:00:00 glipiZIDE 5 mg 5 mg, 1 tab, PO No Longer [facility] oral tablet Route: PO, Drug Active 2011 Medi [place] form: TAB, Center Daily, Dosing Weight 113.636, kg, Start date: 01/15/12 9:00:00, Duration: 30 day, Stop date: 02/13/12 9:00:00 Tylenol 650 mg, 2 tab, PO No Longer [facility] s Route: PO, Drug Active 2011 Medical form: TAB, Q4H, Center Dosing Weight 113.636, kg, PRN Pain, Start date: 01/15/12 2:43:00, Duration: 30 day, Stop date: 02/14/12 2:42:00 adenosine 95.4542 mg, IVP No Longer [facility] Route: IVP, Active 2011 Medical ONCE, Dosing Center Weight 113.636, kg, Priority: Routine, Start date: 01/14/12 22:35:00, Stop date: 01/14/12 22:35:00 Dextrose 50% 25 gm, 50 mL, IVP No Longer [facility] Syringe Route: IVP, Drug Active 2011 Medical Form: INJ, Center Dosing Weight 113.636, kg, PRN, PRN Blood Glucose Results, Start date: 01/14/12 21:51:00, Duration: 30 day, Stop date: 02/13/12 21:50:00 glucagon 1 mg, Route: IM, IM No Longer [facility] Drug form: Active 2011 Medical PDR/INJ, PRN, Center Dosing Weight 113.636, kg, PRN Blood Glucose Results, Start date: 01/14/12 21:51:00, Duration: 30 day, Stop date: 02/13/12 21:50:00 insulin aspart 10 unit, 0.1 mL, SUB-Q No Longer [facility] 01/14 [facility] Route: SUB-Q, Active 2011 Medical Drug form: SOLN, Center TID-Before Meals, Dosing Weight 113.636, kg, PRN Blood Glucose Results, Start date: 01/14/12 21:51:00, Duration: 30 day, Stop date: 02/13/12 21:50:00 heparin 5,000 unit, 1 SUB-Q No Longer [place] mL, Route: Active 2011 Medical SUB-Q, Drug Center form: INJ, Q12H, Dosing Weight 113.636, kg, Start date: 01/14/12 21:00:00, Duration: 30 day, Stop date: 02/13/12 9:00:00 Saline Flush 5 ml, Route: IVP No Longer [place] 0.9% IVP, Drug Form: Active 2011 Medical INJ, Dosing Center Weight 113.636, kg, Q12H, Start date: 01/14/12 21:00:00, Duration: 30 day, Stop date: 02/13/12 9:00:00 hydrALAZINE 20 mg, 1 mL, IVP [place] Longer [place] Route: IVP, Drug Active 2011 Medical form: INJ, Q4H, Center Dosing Weight 113.636, kg, PRN Hypertension, Start date: 01/14/12 18:48:00, Duration: 30 day, Stop date: 02/13/12 18:47:00 Flomax 0.4 mg 0.4 mg, 1 cap, PO No Longer [place] oral capsule PO, Daily, 30 Active 2011 Medic al cap, Center Substitution Allowed, CAP Plavix 75 mg 75 mg, 1 tab, PO No Longer [place] oral tablet PO, Daily, 30 Active 2011 Medica l tab, Center Substitution Allowed, TAB metFORmin 1000 1,000 mg, 1 tab, PO No Longer 01/13 [place] mg oral tablet PO, BID, 30 tab, Active 2011 Medical Substitution Center Allowed glipiZIDE 5 mg 5 mg, 1 tab, PO, PO No Longer 01/13 [place] oral tablet Daily, 30 tab, Active 2011 Medic al Substitution Center Allowed clonidine 0.3 mg 0.3 mg, PO, BID, PO No Longer 01/03 [place] oral tablet 60 tab, Active 2011 Medical Substitution Center Allowed metoprolol 50 mg, 1 tab, PO No Longer [place] tartrate Route: PO, Drug Active 2011 Medical form: TAB, Q12H, Center Dosing Weight 113.636, kg, Priority: NOW, Start date: 01/14/12 17:03:00, Duration: 30 day, Stop date: 02/13/12 9:00:00 clonidine 0.3 mg 0.3 mg, 1 tab, PO No Longer [facility] 01/13 [facility] oral tablet Route: PO, Drug Active 2011 [place] form: TAB, BID, Center Dosing Weight 113.636, kg, Start date: 01/14/12 17:00:00, Duration: 30 day, Stop date: 02/13/12 9:00:00 Saline Flush 5 ml, Route: IVP No Longer [facility] 0.9% IVP, Drug Form: Active 2011 Medical INJ, Dosing Center Weight 113.636, kg, PRN, PRN Line Flush, Start date: 01/14/12 16:52:00, Duration: 30 day, Stop date: 02/13/12 16:51:00 nitroglycerin SL 0.4 mg, 1 tab, SL No Longer [facility] 01/13 [facility] Tab Route: SL, Drug Active 2011 Medical form: TAB, Center Q5Min, Dosing Weight 113.636, kg, PRN Chest Pain, Start date: 01/14/12 16:52:00, Duration: 3 doses or times, Stop date: Limited # of times nitroglycerin 2% 1 inch, Route: TOP No Longer [facility] ointment TOP, Drug Form: Active 2011 Medical OINT, Dosing Center Weight 113.636, kg, ONCE, STAT, Start date: 01/14/12 16:01:00, Stop date: 01/14/12 16:01:00 acetaminophen 650 mg, Route: PO No Longer [facility] J[facility] PO, Drug form: Active 2011 Medical TAB, ONCE, Center Dosing Weight 113.636, kg, Priority: STAT, Start date: 01/14/12 14:24:00, Stop date: 01/14/12 14:24:00 Vasotec 1.25 mg, 1 mL, IV No Longer [facility] [place] Route: IV, Drug Active 2011 Medical form: INJ, ONCE, Center Dosing Weight 113.636, kg, Start date: 01/14/12 13:54:00, Stop date: 01/14/12 13:54:00 enalaprilat 1.25 mg, 1 mL, IV No Longer Gregorio Aelxi [place] Route: IV, Drug Active 2011 Medical form: INJ, ONCE, Center Dosing Weight 113.636, kg, Start date: 01/14/12 13:52:00, Stop date: 01/14/12 13:52:00 Sodium Chloride 500 mL, Rate: IV No Longer Thea [place] 0.9% (Bolus) IV 500 ml/hr, Active 2011 Medic al 500 mL Infuse over: 1 Center hr, Route: IV, kg, Total Volume: 500, Bolus Dose, Priority: STAT, Start date: 01/14/12 12:42:00, Duration: 1 doses or times, Stop date: 01/14/12 13:41:00 magnesium 2 gm, 50 mL, IV No Longer [place] sulfate Route: IV, Drug Active 2011 Medical form: INJ, ONCE, Center Dosing Weight 113.636, kg, Priority: STAT, Start date: 01/14/12 12:42:00, Stop date: 01/14/12 12:42:00 ondansetron 4 mg, Route: IVP [place] Longer [place] IVP, Drug form: Active 2011 Medical INJ, ONCE, Center Dosing Weight 113.636, kg, Priority: STAT, Start date: 01/14/12 12:14:00, Stop date: 01/14/12 12:14:00 nitroglycerin 100 mg, 250 mL, IV No Longer The[facility] [place] 100 mg in 250 ml Rate: Titrate, Active 2011 Medical D5W Premix Dosing Weight Center (titrate) 100 mg 113.636, kg, Route: IV, Total Volume: 250, Start @ 10 mcg/min then titrate to pain and maintain SBP 162, Start date: 01/14/12 11:14:00, Duration: 24 hr, Stop date: 01/15/12 11:13:00, Replace Every: 24 hr Saline Flush 5 ml, Route: IVP No Longer [place] 0.9% IVP, Drug Form: Active 2011 Medical INJ, Dosing Center Weight 113.636, kg, PRN, PRN Line Flush, Start date: 01/14/12 11:14:00, Duration: 24 hr, Stop date: 01/15/12 11:13:00 Allergies, Adverse Reactions, Alerts Substance Category Reaction Severity Reaction Status Date Comments S ource type Reported Robaxin Assertion Drug Active [facility] as [facility] statins Assertion Drug Active [place] as allergy [facility] Immunizations Immunization Date Site Status Last Updated Comments Sour ce Given pneumococcal Right completed [facility] [place] 13-valent 6 [facility] vaccine [place], [facility] influenza virus Left completed [facility] [place] vaccine, [address] [place] [address] inactivated [place],[facility], [facility] Results Order Name Results Value Reference Date Interpretation Comments Juliet rce Range CHEM PANEL Glucose Lvl 86 70 - 99 10/13 [facility] CHEM PANEL BUN 27 7 - 22 10/13 [facility] CHEM PANEL eGFR 39 10/13 Result Comment: The Medical eGFR is Center calculated using the CKD-EPI formula. In most young, healthy individuals the eGFR will be >90 mL/min/1.73m2 . The eGFR declines with age. An eGFR of 60-89 may be normal in some populations, particularly the elderly, for whom the CKD-EPI formula has not been extensively validated. Use of the eGFR is not recommended in the following populations:< br/>
Nelly viduals with unstable creatinine concentration s, including patients and those with serious co-morbid conditions.<b r/>
Patie nts with extremes in muscle mass or diet.

The data above are obtained from the National Kidney Disease Education Program (NKDEP) which additionally recommends that when the eGFR is used in patients with extremes of body mass index for purposes of drug dosing, the eGFR should be multiplied by the estimated BMI. CHEM PANEL CO2 26 24 - 32 10/13 [facility] CHEM PANEL Chloride Lvl 105 95 - 109 10/13 [place] [facility] CHEM PANEL Sodium Lvl 138 135 - 145 10/13 [facility] CHEM PANEL Calcium Lvl 9.1 8.5 - 10.5 10/13 [place] as /2016 [facility] CHEM PANEL Creatinine 1.79 0.50 - 10/13 [place] Lvl 1.40 /2016 [facility] CHEM PANEL Potassium 4.6 3.5 - 5.1 10/13 [place] Lvl /2016 [facility] CHEM PANEL AGAP 11.6 10.0 - 10/13 [place] 20.0 /2016 [facility] HEMATOLOGY MCH 31.5 27.0 - 10/13 [place] 31.0 [facility] HEMATOLOGY MCHC 34.1 32.0 - 10/13 [place] 36.0 /2016 [facility] HEMATOLOGY RDW 15.6 11.5 - 10/13 [place] 14.5 /2016 [facility] HEMATOLOGY Platelet 180 133 - 450 10/13 [facility] HEMATOLOGY MPV 8.5 7.4 - 10.4 10/13 [facility] HEMATOLOGY Hgb 12.2 14.0 - 10/13 [place] 18.0 /2016 [facility] HEMATOLOGY Hct 35.7 42.0 - 10/13 [place] 54.0 [facility] HEMATOLOGY MCV 92.2 80.0 - 10/13 [place] 94.0 /2016 [facility] HEMATOLOGY WBC X 10x3 10.7 3.7 - 10.4 10/13 [place] /2016 [facility] HEMATOLOGY RBC X 10x6 3.87 4.70 - 10/13 [place] 6.10 /2016 [facility] HEMATOLOGY Basophils 0.7 0.0 - 1.0 10/13 [place] [facility] HEMATOLOGY Segs-Bands # 7.1 1.5 - 8.1 10/13 [place] /2016 [facility] HEMATOLOGY Lymphocytes 1.5 1.0 - 5.5 10/13 [place] # /2016 [facility] HEMATOLOGY Monocytes # 0.6 0.0 - 0.8 10/13 [place] /2016 [facility] HEMATOLOGY Segs 73.4 45.0 - 10/13 [place] 75.0 /2017 [facility] HEMATOLOGY Lymphocytes 15.2 20.0 - 10/13 [place] 40.0 /2017 [facility] HEMATOLOGY Monocytes 6.4 2.0 - 12.0 10/13 [place] /2017 [facility] HEMATOLOGY Eosinophils 4.3 0.0 - 4.0 10/13 [place] /2016 [facility] HEMATOLOGY Eosinophils 0.4 0.0 - 0.5 10/13 [facility] [place] # /2016 [facility] HEMATOLOGY Basophils # 0.1 0.0 - 0.2 10/13 [facility] CHEM PANEL eGFR 37 10/12 Result Comment: The Medical eGFR is Center calculated using the CKD-EPI formula. In most young, healthy individuals the eGFR will be >90 mL/min/1.73m2 . The eGFR declines with age. An eGFR of 60-89 may be normal in some populations, particularly the elderly, for whom the CKD-EPI formula has not been extensively validated. Use of the eGFR is not recommended in the following populations:< br/>
Nelly viduals with unstable creatinine concentration s, including patients and those with serious co-morbid conditions.<b r/>
Patie nts with extremes in muscle mass or diet.

The data above are obtained from the National Kidney Disease Education Program (NKDEP) which additionally recommends that when the eGFR is used in patients with extremes of body mass index for purposes of drug dosing, the eGFR should be multiplied by the estimated BMI. CHEM PANEL Creatinine 1.85 0.50 - 10/12 [facility] Lvl 1.40 [facility] CHEM PANEL Sodium Lvl 137 135 - 145 10/12 [facility] CHEM PANEL BUN 31 7 - 22 10/12 2016 [facility] CHEM PANEL Glucose Lvl 89 70 - 99 10/12 [facility] CHEM PANEL Calcium Lvl 9.2 8.5 - 10.5 10/12 [facility] CHEM PANEL Potassium 4.2 3.5 - 5.1 10/12 [facility] CHEM PANEL Chloride Lvl 103 95 - 109 10/12 [facility] CHEM PANEL CO2 25 24 - 32 10/12 [facility] CHEM PANEL AGAP 13.2 10.0 - 10/12 20.0 [facility] HEMATOLOGY Eosinophils 4.5 0.0 - 4.0 10/12 [facility] HEMATOLOGY Basophils 0.6 0.0 - 1.0 10/12 [facility] HEMATOLOGY Lymphocytes 1.5 1.0 - 5.5 10/12 [facility] s # [facility] HEMATOLOGY Monocytes # 0.7 0.0 - 0.8 10/12 s [facility] HEMATOLOGY Monocytes 6.0 2.0 - 12.0 10/12 [facility] [place] HEMATOLOGY Segs 75.3 45.0 - 10/12 [place] 75.0 [facility] [place] HEMATOLOGY Lymphocytes 13.6 20.0 - 10/12 [place] 40.0 [facility] HEMATOLOGY Segs-Bands # 8.3 1.5 - 8.1 10/12 as /2016 [facility] [place] HEMATOLOGY Basophils # 0.1 0.0 - 0.2 10/12 s [facility] [place] HEMATOLOGY Eosinophils 0.5 0.0 - 0.5 10/12 s # /2016 [facility] [place] HEMATOLOGY MCV 92.7 80.0 - 10/12 [place] 94.0 [facility] HEMATOLOGY MCH 31.3 27.0 - 10/12 31.0 [facility] HEMATOLOGY MCHC 33.8 32.0 - 10/12 [place] 36.0 [facility] HEMATOLOGY RDW 15.5 11.5 - 10/12 [place] 14.5 [facility] HEMATOLOGY MPV 8.3 7.4 - 10.4 10/12 [facility] HEMATOLOGY Platelet 187 133 - 450 10/12 [facility] HEMATOLOGY Hgb 11.7 14.0 - 10/12 18.0 [facility] HEMATOLOGY Hct 34.6 42.0 - 10/12 [place] 54.0 [facility] HEMATOLOGY RBC 3.73 4.70 - 10/12 [place] 6.10 [facility] HEMATOLOGY WBC 11.1 3.7 - 10.4 10/12 [facility] ELECTROLYT Potassium 3.9 3.5 - 5.1 10/11 [facility] ES Lvl /2016 [facility] ELECTROLYT Chloride Lvl 104 95 - 109 10/11 s [facility] ELECTROLYT Creatinine 2.23 0.50 - 10/11 [facility] ES Lvl 1.40 /2016 [facility] ELECTROLYT Sodium Lvl 137 135 - 145 10/11 [facility] ELECTROLYT CO2 24 24 - 32 10/11 [facility] ES [facility] Center ELECTROLYT AGAP 12.9 10.0 - 10/11 [place] 20.0 [facility] ELECTROLYT Calcium Lvl 8.5 8.5 - 10.5 10/11 [facility] ELECTROLYT eGFR 30 10/11 Result [facility] Comment: The Medical eGFR is Center calculated using the CKD-EPI formula. In most young, healthy individuals the eGFR will be >90 mL/min/1.73m2 . The eGFR declines with age. An eGFR of 60-89 may be normal in some populations, particularly the elderly, for whom the CKD-EPI formula has not been extensively validated. Use of the eGFR is not recommended in the following populations:< br/>
Nelly viduals with unstable creatinine concentration s, including patients and those with serious co-morbid conditions.<b r/>
Patie nts with extremes in muscle mass or diet.

The data above are obtained from the National Kidney Disease Education Program (NKDEP) which additionally recommends that when the eGFR is used in patients with extremes of body mass index for purposes of drug dosing, the eGFR should be multiplied by the estimated BMI. ELECTROLYT Glucose Lvl 107 70 - 99 10/11 [facility] ELECTROLYT BUN 35 7 - 22 10/11 [facility] HEMATOLOGY Lymphocytes 1.6 1.0 - 5.5 10/11 [facility] # [facility] HEMATOLOGY Monocytes # 0.8 0.0 - 0.8 10/11 [facility] HEMATOLOGY Eosinophils 0.4 0.0 - 0.5 10/11 [facility] s # [facility] HEMATOLOGY Basophils # 0.1 0.0 - 0.2 10/11 [facility] HEMATOLOGY Lymphocytes 13.9 20.0 - 10/11 [place] 40.0 [facility] HEMATOLOGY Monocytes 7.1 2.0 - 12.0 10/11 [facility] HEMATOLOGY Eosinophils 3.7 0.0 - 4.0 10/11 [facility] HEMATOLOGY Basophils 0.9 0.0 - 1.0 10/11 [facility] HEMATOLOGY Segs-Bands # 8.8 1.5 - 8.1 10/11 [facility] HEMATOLOGY Segs 74.4 45.0 - 10/11 [place] 75.0 [facility] HEMATOLOGY Hct 32.6 42.0 - 10/11 [facility] [place] 54.0 /2016 [facility] HEMATOLOGY WBC 11.8 3.7 - 10.4 10/11 [facility] HEMATOLOGY Hgb 11.3 14.0 - 10/11 [place] 18.0 /2016 [facility] HEMATOLOGY RBC 3.54 4.70 - 10/11 [place] 6.10 /2016 [facility] HEMATOLOGY MCV 92.2 80.0 - 10/11 [facility] 94.0 /2016 [facility] HEMATOLOGY MCH 31.9 27.0 - 10/11 [facility] 31.0 [facility] HEMATOLOGY MCHC 34.6 32.0 - 10/11 [facility] 36.0 /2016 [facility] HEMATOLOGY RDW 15.6 11.5 - 10/11 [facility] 14.5 [facility] HEMATOLOGY Platelet 164 133 - 450 10/11 [facility] HEMATOLOGY MPV 8.2 7.4 - 10.4 10/11 [facility] CHEM PANEL Phosphorus 3.5 2.5 - 4.5 10/10 [facility] CHEM PANEL Magnesium 2.5 1.8 - 2.4 10/10 [facility] BLOOD BANK Antibody Negative 10/09 [facility] RESULTS Scrn (10/09/16 12:59 AM) [facility] BLOOD BANK ABO/Rh O POS 10/09 [facility] RESULTS [facility] CARDIAC Troponin-I 0.02 0.00 - 10/09 [facility] ENZYMES 0.40 [facility] CHEM PANEL Magnesium 2.5 1.8 - 2.4 10/09 [facility] CHEM PANEL Phosphorus 3.5 2.5 - 4.5 10/09 [facility] CARDIAC Troponin-I 0.02 0.00 - 10/09 [facility] ENZYMES 0.40 [facility] PARATHYROI Ca Norm WB 1.05 1.05 - 10/08 [place] D PROFILE 1. [facility] PARATHYROI Ca Ion WB 1.05 1.05 - 10/08 [place] D PROFILE . [facility] CHEM PANEL Phosphorus 3.2 2.5 - 4.5 10/08 [facility] CHEM PANEL Magnesium 2.4 1.8 - 2.4 10/08 [facility] PARATHYROI Ca Norm WB 1.14 1.05 - 10/07 [facility] [place] D PROFILE 1. [facility] PARATHYROI Ca Ion WB 1.15 1.05 - 10/07 [facility] D PROFILE 1.25 [facility] CARDIAC Troponin-I 0.05 0.00 - 10/06 [facility] ENZYMES 0.40 /2016 [facility] CARDIAC BNP 569 <=100 06/ [facility] ENZYMES pg/mL /2016 [facility] CHEM PANEL Albumin Lvl 3.8 3.5 - 5.0 10/06 [place] [facility] CHEM PANEL ALT 22 0 - 65 06 [facility] CHEM PANEL Alk Phos 115 39 - 136 10/06 [facility] CHEM PANEL AST 10 0 - 37 10/06 [facility] [address] [place] [address] CHEM PANEL Total 8.0 6.4 - 8.4 10/06 [facility] CHEM PANEL Bili Total 0.6 0.2 - 1.3 10/06 [facility] [address] [place] [address] CHEM PANEL B/C Ratio 12 6 - 25 10/06 [facility] [address] [place] [address] CHEM PANEL A/G Ratio 0.9 0.7 - 1.6 10/06 [facility] [address] [place] [address] CHEM PANEL Globulin 4.2 2.7 - 4.2 / [facility] [address] [place] [address] HEMATOLOGY PTT 33.9 22.9 - 06 [place] 35.8 /2016 [facility] HEMATOLOGY INR 1.35 0.85 - 10/06 [place] 1.17 /2016 [facility] HEMATOLOGY PT 16.9 12.0 - 10/06 [place] 14.7 [facility] CARDIAC BNP 533 <=100 01/25 [place] pg/mL /2015 [facility] CHEM PANEL Calcium Lvl 8.3 8.5 - 10.5 01/24 [place] CHEM PANEL CO2 29 24 - 32 01/24 [facility] CHEM PANEL AGAP 9.6 10.0 - 01/24 20.0 /2015 [place] CHEM PANEL Chloride Lvl 104 95 - 109 01/24 [place] CHEM PANEL BUN 20 7 - 22 01/24 [facility] CHEM PANEL Glucose Lvl 168 70 - 99 01/24 [facility] CHEM PANEL Creatinine 2.33 0.50 - 01/24 Lvl 1.40 /2015 [place] CHEM PANEL Potassium 3.6 3.5 - 5.1 01/24 Lvl /2015 [place] CHEM PANEL Sodium Lvl 139 135 - 145 01/24 [facility] CHEM PANEL eGFR 28 01/24 Result Comment: The [facility] eGFR is calculated using the CKD-EPI formula. In most young, healthy individuals the eGFR will be >90 mL/min/1.73m2 . The eGFR declines with age. An eGFR of 60-89 may be normal in some populations, particularly the elderly, for whom the CKD-EPI formula has not been extensively validated. Use of the eGFR is not recommended in the following populations:< br/>
Nelly viduals with unstable creatinine concentration s, including patients and those with serious co-morbid conditions.<b r/>
Patie nts with extremes in muscle mass or diet.

The data above are obtained from the National Kidney Disease Education Program (NKDEP) which additionally recommends that when the eGFR is used in patients with extremes of body mass index for purposes of drug dosing, the eGFR should be multiplied by the estimated BMI. ELECTROLYT AGAP 11.1 10.0 - 01/23 ES 20.0 [facility] ELECTROLYT Calcium Lvl 7.8 8.5 - 10.5 01/23 ES [facility] ELECTROLYT Chloride Lvl 104 95 - 109 01/23 ES [facility] ELECTROLYT CO2 27 24 - 32 01/23 ES [facility] ELECTROLYT Sodium Lvl 139 135 - 145 01/23 [facility] ELECTROLYT Potassium 3.1 3.5 - 5.1 01/23 ES Lvl [facility] ELECTROLYT eGFR 35 01/23 Result Comment: The [facility] eGFR is calculated using the CKD-EPI formula. In most young, healthy individuals the eGFR will be >90 mL/min/1.73m2 . The eGFR declines with age. An eGFR of 60-89 may be normal in some populations, particularly the elderly, for whom the CKD-EPI formula has not been extensively validated. Use of the eGFR is not recommended in the following populations:< br/>
Nelly viduals with unstable creatinine concentration s, including patients and those with serious co-morbid conditions.<b r/>
Patie nts with extremes in muscle mass or diet.

The data above are obtained from the National Kidney Disease Education Program (NKDEP) which additionally recommends that when the eGFR is used in patients with extremes of body mass index for purposes of drug dosing, the eGFR should be multiplied by the estimated BMI. ELECTROLYT Glucose Lvl 131 70 - 99 01/23 ES /2015 [facility] ELECTROLYT BUN 22 7 - 22 01/23 ES /2015 [facility] ELECTROLYT Creatinine 1.96 0.50 - 01/23 ES Lvl 1.40 /2015 [facility] HEMATOLOGY Basophils 1.0 0.0 - 1.0 01/23 /2015 [facility] HEMATOLOGY Monocytes 4.2 2.0 - 12.0 01/23 [facility] HEMATOLOGY Eosinophils 4.1 0.0 - 4.0 01/23 /2015 [facility] HEMATOLOGY Segs 74.5 45.0 - 01/23 [facility] 75.0 /2015 [facility] HEMATOLOGY Lymphocytes 16.2 20.0 - 01/23 40.0 [facility] HEMATOLOGY Basophils # 0.1 0.0 - 0.2 01/23 [facility] HEMATOLOGY Eosinophils 0.5 0.0 - 0.5 01/23 MH # /2016 [facility] HEMATOLOGY Monocytes # 0.5 0.0 - 0.8 01/23 [facility] HEMATOLOGY Segs-Bands # 8.4 1.5 - 8.1 01/23 /2015 [facility] HEMATOLOGY Lymphocytes 1.8 1.0 - 5.5 01/23 MH # /2015 [facility] HEMATOLOGY MPV 8.1 7.4 - 10.4 01/23 /2015 [facility] HEMATOLOGY MCH 31.2 27.0 - 01/23 31.0 [facility] HEMATOLOGY Platelet 210 133 - 450 01/23 /2015 [facility] HEMATOLOGY MCHC 34.9 32.0 - 01/23 36.0 [facility] HEMATOLOGY MCV 89.6 80.0 - 01/23 94.0 [facility] HEMATOLOGY RDW 14.3 11.5 - 01/23 [facility] 14.5 /2015 [facility] HEMATOLOGY WBC 11.3 3.7 - 10.4 01/23 [facility] HEMATOLOGY Hct 31.7 42.0 - 01/23 54.0 [facility] HEMATOLOGY RBC 3.54 4.70 - 01/23 6.10 [facility] HEMATOLOGY Hgb 11.0 14.0 - 01/23 18.0 /2015 [facility] BACTERIAL MRSA by PCR Negative 01/23 - SEROLOGY (01/24/16 4:19 PM) /2015 [facility] BLOOD BANK RBC product Product available 1 01/23 Resul t RESULTS (01/24/16 11:02 AM) /2015 Comment: [facility] 01/24/2016 11:16 ASBHAVSA
called to irene GODDARD Potassium 3.0 3.5 - 5.1 01/23 Result ES Lvl /2015 Comment: [facility] Critical Result(s) called to Merrick Paul at 01/24/2016 07:44 by TT. Read back OK. HEMATOLOGY INR 1.28 0.85 - 01/23 1.17 /2015 [facility] HEMATOLOGY PT 16.3 12.0 - 01/23 14.7 /2015 [facility] BLOOD BANK Antibody Negative 01/16 RESULTS Scrn (01/17/16 12:50 PM) /2015 [facility] BLOOD BANK ABO/Rh O POS 01/16 RESULTS /2015 [facility] ELECTROLYT AGAP 10.2 10.0 - 01/16 ES 20.0 [facility] ELECTROLYT eGFR 28 01/16 Result ES /2015 Comment: The [facility] eGFR is calculated using the CKD-EPI formula. In most young, healthy individuals the eGFR will be >90 mL/min/1.73m2 . The eGFR declines with age. An eGFR of 60-89 may be normal in some populations, particularly the elderly, for whom the CKD-EPI formula has not been extensively validated. Use of the eGFR is not recommended in the following populations:< br/>
Nelly viduals with unstable creatinine concentration s, including patients and those with serious co-morbid conditions.<b r/>
Patie nts with extremes in muscle mass or diet.

The data above are obtained from the National Kidney Disease Education Program (NKDEP) which additionally recommends that when the eGFR is used in patients with extremes of body mass index for purposes of drug dosing, the eGFR should be multiplied by the estimated BMI. ELECTROLYT BUN 31 7 - 22 01/16 ES /2015 [facility] ELECTROLYT Creatinine 2.37 0.50 - 01/16 ES Lvl 1.40 /2015 [facility] ELECTROLYT Sodium Lvl 137 135 - 145 01/16 ES /2015 [facility] ELECTROLYT Chloride Lvl 99 95 - 109 01/16 ES /2015 [facility] ELECTROLYT Calcium Lvl 8.9 8.5 - 10.5 01/16 /2015 [facility] ELECTROLYT CO2 31 24 - 32 09 ES /2015 [facility] ELECTROLYT Glucose Lvl 150 70 - 99 01/16 ES /2015 [facility] HEMATOLOGY PTT 50.2 22.9 - 01/16 MH 35.8 /2015 [facility] HEMATOLOGY MCHC 34.7 32.0 - 01/16 MH 36.0 /2015 [facility] HEMATOLOGY RDW 13.9 11.5 - 01/16 MH 14.5 /2015 [facility] HEMATOLOGY Hgb 12.2 14.0 - 01/16 MH 18.0 /2015 [facility] HEMATOLOGY Hct 35.2 42.0 - 01/16 MH 54.0 /2015 [facility] HEMATOLOGY MPV 8.4 7.4 - 10.4 01/16 [facility] HEMATOLOGY Platelet 249 133 - 450 01/16 [facility] HEMATOLOGY MCH 31.0 27.0 - 01/16 MH 31.0 /2015 [facility] HEMATOLOGY MCV 89.6 80.0 - 01/16 MH 94.0 /2015 [facility] HEMATOLOGY WBC 11.8 3.7 - 10.4 01/16 [facility] HEMATOLOGY RBC 3.93 4.70 - 01/16 MH 6.10 /2015 [facility] HEMATOLOGY INR 1.73 0.85 - 01/16 MH 1.17 /2015 [facility] HEMATOLOGY PT 20.6 12.0 - 01/16 14.7 /2015 [facility] HEMATOLOGY Basophils # 0.1 0.0 - 0.2 01/16 [facility] HEMATOLOGY Basophils 0.7 0.0 - 1.0 01/16 [facility] HEMATOLOGY Monocytes 6.2 2.0 - 12.0 01/16 [facility] HEMATOLOGY Lymphocytes 18.2 20.0 - 01/16 40.0 /2016 [facility] HEMATOLOGY Eosinophils 4.1 0.0 - 4.0 01/16 [facility] HEMATOLOGY Segs 70.8 45.0 - 01/16 MH 75.0 /2016 [facility] HEMATOLOGY Eosinophils 0.5 0.0 - 0.5 01/16 MH # /2015 [facility] HEMATOLOGY Monocytes # 0.7 0.0 - 0.8 01/16 [facility] HEMATOLOGY Lymphocytes 2.1 1.0 - 5.5 01/16 MH # /2015 [facility] HEMATOLOGY Segs-Bands # 8.3 1.5 - 8.1 01/16 [facility] CHEM PANEL Phosphorus 3.7 2.5 - 4.5 11/13 [facility] CHEM PANEL Magnesium 2.4 1.8 - 2.4 11/13 [facility] ELECTROLYT AGAP 12.2 10.0 - 11/13 [facility] ES 20.0 [facility] ELECTROLYT eGFR 23 11/13 Result [facility] Comment: The Medical eGFR is Center calculated using the CKD-EPI formula. In most young, healthy individuals the eGFR will be >90 mL/min/1.73m2 . The eGFR declines with age. An eGFR of 60-89 may be normal in some populations, particularly the elderly, for whom the CKD-EPI formula has not been extensively validated. Use of the eGFR is not recommended in the following populations:< br/>
Nelly viduals with unstable creatinine concentration s, including patients and those with serious co-morbid conditions.<b r/>
Patie nts with extremes in muscle mass or diet.

The data above are obtained from the National Kidney Disease Education Program (NKDEP) which additionally recommends that when the eGFR is used in patients with extremes of body mass index for purposes of drug dosing, the eGFR should be multiplied by the estimated BMI. ELECTROLYT Potassium 4.2 3.5 - 5.1 11/13 [facility] ELECTROLYT Sodium Lvl 140 135 - 145 11/13 [facility] ELECTROLYT Chloride Lvl 107 95 - 109 11/13 [place] [facility] ELECTROLYT Glucose Lvl 120 70 - 99 11/13 [facility] ELECTROLYT Calcium Lvl 8.4 8.5 - 10.5 11/13 [place] [facility] ELECTROLYT CO2 25 24 - 32 11/13 [facility] ELECTROLYT Creatinine 2.74 0.50 - 11/13 [facility] Lvl 1.40 [facility] ELECTROLYT BUN 37 7 - 22 11/13 [facility] HEMATOLOGY PTT 33.2 22.9 - 07 [place] 35.8 /2015 [facility] HEMATOLOGY PT 16.1 12.0 - 07/ [place] 14.7 /2015 [facility] HEMATOLOGY INR 1.26 0.85 - 11/13 [place] 1.17 /2015 [facility] HEMATOLOGY WBC 9.3 3.7 - 10.4 11/13 [facility] [place] HEMATOLOGY RBC 2.98 4.70 - 11/13 [place] 6.10 /2015 [facility] HEMATOLOGY Hgb 9.7 14.0 - 11/13 [place] 18.0 /2015 [facility] [place] HEMATOLOGY MCH 32.5 27.0 - 11/13 [place] 31.0 /2015 [facility] [place] HEMATOLOGY MCV 94.0 80.0 - 11/13 [place] 94.0 /2015 [facility] HEMATOLOGY Hct 28.0 42.0 - 11/13 [place] 54.0 /2015 [facility] HEMATOLOGY RDW 13.4 11.5 - 11/13 [place] 14.5 /2015 [facility] HEMATOLOGY Platelet 196 133 - 450 11/13 [facility] HEMATOLOGY MCHC 34.6 32.0 - 11/13 [place] 36.0 [facility] HEMATOLOGY MPV 8.5 7.4 - 10.4 11/13 [facility] HEMATOLOGY Segs-Bands # 6.5 1.5 - 8.1 11/13 [facility] HEMATOLOGY Basophils 1.1 0.0 - 1.0 11/13 [facility] HEMATOLOGY Eosinophils 3.3 0.0 - 4.0 11/13 a s [facility] HEMATOLOGY Lymphocytes 1.5 1.0 - 5.5 11/13 [place] # /2015 [facility] HEMATOLOGY Monocytes # 0.9 0.0 - 0.8 11/13 [facility] HEMATOLOGY Eosinophils 0.3 0.0 - 0.5 11/13 [place] # /2015 [facility] HEMATOLOGY Basophils # 0.1 0.0 - 0.2 11/13 a [facility] HEMATOLOGY Monocytes 9.8 2.0 - 12.0 11/13 [facility] HEMATOLOGY Lymphocytes 15.6 20.0 - 11/13 [place] 40.0 [facility] HEMATOLOGY Segs 70.2 45.0 - 11/13 [place] 75.0 [facility] PARATHYROI Ca Ion WB 1.14 1.05 - 11/13 [place] D PROFILE . [facility] PARATHYROI Ca Norm WB 1.14 1.05 - 11/13 [place] D PROFILE . [facility] URINE CHEM U Eos None Seen None Seen 11/12 [facility] (11/13/15 10:28 AM) [facility] URINE CHEM U Chloride <10 11/12 [facility] URINE CHEM U Potassium 35.6 11/12 [facility] URINE CHEM U Sodium 10 11/12 [facility] URINE CHEM U Creatinine 171.00 11/12 [facility] BLOOD BANK Antibody Negative 11/12 [facility] RESULTS Scrn (11/13/15 4:56 AM) [facility] BLOOD BANK ABO/Rh O POS 11/12 [facility] RESULTS [facility] CHEM PANEL Magnesium 2.3 1.8 - 2.4 11/12 [facility] Lvl /2015 [facility] CHEM PANEL Phosphorus 3.1 2.5 - 4.5 11/12 [facility] ELECTROLYT AGAP 14.1 10.0 - 11/12 [facility] ES 20.0 [facility] ELECTROLYT eGFR 23 11/12 Result [facility] Comment: The [facility] eGFR is Center calculated using the CKD-EPI formula. In most young, healthy individuals the eGFR will be >90 mL/min/1.73m2 . The eGFR declines with age. An eGFR of 60-89 may be normal in some populations, particularly the elderly, for whom the CKD-EPI formula has not been extensively validated. Use of the eGFR is not recommended in the following populations:< br/>
Nelly viduals with unstable creatinine concentration s, including patients and those with serious co-morbid conditions.<b r/>
Patie nts with extremes in muscle mass or diet.

The data above are obtained from the National Kidney Disease Education Program (NKDEP) which additionally recommends that when the eGFR is used in patients with extremes of body mass index for purposes of drug dosing, the eGFR should be multiplied by the estimated BMI. ELECTROLYT Potassium 4.1 3.5 - 5.1 11/12 [facility] ES Lvl [facility] ELECTROLYT CO2 24 24 - 32 11/12 [facility] ELECTROLYT Chloride Lvl 106 95 - 109 11/12 [place] [facility] ELECTROLYT Calcium Lvl 8.2 8.5 - 10.5 11/12 [place] [facility] ELECTROLYT BUN 30 7 - 22 11/12 [facility] ELECTROLYT Creatinine 2.74 0.50 - 11/12 [place] ES Lvl 1.40 /2015 [facility] ELECTROLYT Sodium Lvl 140 135 - 145 11/12 [facility] ELECTROLYT Glucose Lvl 139 70 - 99 11/12 [place] [facility] HEMATOLOGY Segs-Bands # 7.2 1.5 - 8.1 11/12 [place] /2015 [facility] HEMATOLOGY Monocytes 10.1 2.0 - 12.0 11/12 [facility] HEMATOLOGY Eosinophils 2.3 0.0 - 4.0 11/12 [place]2015 [facility] HEMATOLOGY Lymphocytes 13.7 20.0 - 11/12 [place] 40.0 /2015 [facility] HEMATOLOGY Basophils 1.1 0.0 - 1.0 11/12 [facility] Center HEMATOLOGY Segs 72.8 45.0 - 11/12 [place] 75.0 /2015 [facility] HEMATOLOGY Basophils # 0.1 0.0 - 0.2 11/12 [place]2015 [facility] HEMATOLOGY Eosinophils 0.2 0.0 - 0.5 11/12 [place] # /2015 [facility] HEMATOLOGY Monocytes # 1.0 0.0 - 0.8 11/12 [place] /2015 [facility] HEMATOLOGY Lymphocytes 1.3 1.0 - 5.5 11/12 [place] # /2015 [facility] HEMATOLOGY PTT 34.9 22.9 - 07 [place] 35.8 /2015 [facility] HEMATOLOGY INR 1.27 0.85 - 11/12 [place] 1.17 /2015 [facility] HEMATOLOGY PT 16.2 12.0 - 11/12 [place] 14.7 /2015 [facility] HEMATOLOGY Hgb 9.7 14.0 - 11/12 [place] 18.0 [facility] HEMATOLOGY RBC 2.98 4.70 - 07 [place] 6.10 /2016 [facility] HEMATOLOGY WBC 9.9 3.7 - 10.4 11/12 [facility] HEMATOLOGY MCH 32.5 27.0 - 07 [place] 31.0 /2016 [facility] HEMATOLOGY MCHC 34.5 32.0 - 07 [place] 36.0 /2016 [facility] HEMATOLOGY MCV 94.3 80.0 - 11/12 [place] 94.0 /2016 [facility] HEMATOLOGY Hct 28.1 42.0 - 07 MH [place] 54.0 [facility] HEMATOLOGY MPV 8.5 7.4 - 10.4 11/12 [facility] HEMATOLOGY Platelet 188 133 - 450 11/12 [facility] HEMATOLOGY RDW 13.3 11.5 - 07 [facility] 14. [facility] PARATHYROI Ca Ion WB 1.06 1.05 - 11/12 [facility] D PROFILE 1. [facility] PARATHYROI Ca Norm WB 1.09 1.05 - 11/12 [facility] D PROFILE 1. [facility] URINE CHEM U Chloride 87 11/11 [facility] URINE CHEM U Potassium 34.7 11/11 [facility] URINE CHEM U Sodium 50 11/11 [facility] URINE CHEM U Creatinine 84.10 11/11 [facility] MOLECULAR C difficile Negative Negative 11/11 [facility] DIAGNOSTIC DNA (11/12/15 2:52 PM) [facility] CHEM PANEL eGFR 25 11/11 Result Comment: The [facility] eGFR is Center calculated using the CKD-EPI formula. In most young, healthy individuals the eGFR will be >90 mL/min/1.73m2 . The eGFR declines with age. An eGFR of 60-89 may be normal in some populations, particularly the elderly, for whom the CKD-EPI formula has not been extensively validated. Use of the eGFR is not recommended in the following populations:< br/>
Nelly viduals with unstable creatinine concentration s, including patients and those with serious co-morbid conditions.<b r/>
Patie nts with extremes in muscle mass or diet.

The data above are obtained from the National Kidney Disease Education Program (NKDEP) which additionally recommends that when the eGFR is used in patients with extremes of body mass index for purposes of drug dosing, the eGFR should be multiplied by the estimated BMI. CHEM PANEL Potassium 4.1 3.5 - 5.1 11/11 [facility] Lvl [facility] CHEM PANEL Sodium Lvl 139 135 - 145 11/11 [facility] CHEM PANEL Calcium Lvl 8.1 8.5 - 10.5 11/11 [place] /2015 [facility] CHEM PANEL Chloride Lvl 105 95 - 109 11/11 [place] [facility] CHEM PANEL CO2 24 24 - 32 07/ /2015 [facility] CHEM PANEL Creatinine 2.58 0.50 - 07 [place] Lvl 1.40 /2016 [facility] CHEM PANEL BUN 21 7 - 22 07/ [facility] CHEM PANEL Glucose Lvl 120 70 - 99 07/ [facility] CHEM PANEL AGAP 14.1 10.0 - 07/ [place] 20.0 /2016 [facility] CHEM PANEL Phosphorus 2.8 2.5 - 4.5 / [facility] CHEM PANEL Magnesium 1.9 1.8 - 2.4 07/ [place] Lvl /2015 [facility] HEMATOLOGY PTT 32.6 22.9 - 07 [place] 35.8 /2016 [facility] HEMATOLOGY PT 15.9 12.0 - 11/11 [place] 14.7 /2015 [facility] HEMATOLOGY INR 1.24 0.85 - 11/11 [place] 1.17 /2015 [facility] HEMATOLOGY MCH 32.7 27.0 - 07 [place] 31.0 /2015 [facility] HEMATOLOGY MCHC 34.8 32.0 - 07 [place] 36.0 /2015 [facility] HEMATOLOGY RDW 13.8 11.5 - 07 [place] 14.5 /2015 [facility] HEMATOLOGY MPV 8.6 7.4 - 10.4 11/11 [facility] HEMATOLOGY Platelet 190 133 - 450 11/11 [facility] HEMATOLOGY Hgb 9.9 14.0 - 07 [place] 18.0 /2016 [facility] HEMATOLOGY Hct 28.4 42.0 - 0710 [place] 54.0 /2016 [facility] HEMATOLOGY MCV 94.1 80.0 - 0710 [place] 94.0 /2016 [facility] HEMATOLOGY WBC 10.7 3.7 - 10.4 07/ [facility] HEMATOLOGY RBC 3.01 4.70 - 07 [place] 6.10 /2015 [facility] HEMATOLOGY Segs-Bands # 7.9 1.5 - 8.1 11/11 [place] /2015 [facility] HEMATOLOGY Eosinophils 0.3 0.0 - 0.5 11/11 [place] # /2016 [facility] HEMATOLOGY Lymphocytes 1.7 1.0 - 5.5 11/11 [place] # /2016 [facility] HEMATOLOGY Monocytes # 0.7 0.0 - 0.8 / [place] /2016 [facility] HEMATOLOGY Basophils # 0.1 0.0 - 0.2 11/11 [place] /2015 [facility] HEMATOLOGY Eosinophils 2.8 0.0 - 4.0 11/11 [place] /2015 [facility] HEMATOLOGY Segs 74.3 45.0 - 11/11 [place] 75.0 /2015 [facility] HEMATOLOGY Monocytes 6.8 2.0 - 12.0 11/11 /2015 [facility] HEMATOLOGY Basophils 0.6 0.0 - 1.0 11/11 /2016 [facility] HEMATOLOGY Lymphocytes 15.5 20.0 - 07 [place] 40.0 /2015 [facility] PARATHYROI Ca Norm WB 1.08 1.05 - 11/11 [place] D PROFILE 1. [facility] PARATHYROI Ca Ion WB 1.10 1.05 - 11/11 [place] D PROFILE 1. [facility] CARDIAC Total CK 63 12 - 191 11/10 [place] ENZYMES [facility] MYOGLOBIN Myoglobin 122 25 - 72 11/10 /2015 [facility] CARDIAC CK MB 7.2 0.5 - 3.6 11/09 [place] ENZYMES /2016 [facility] CARDIAC CK-MB INDEX 7.4 0.0 - 2.5 11/09 [place] ENZYMES /2016 [facility] CARDIAC Troponin-I 2.38 0.00 - 11/09 Result [place] ENZYMES 0.40 Comment: [facility] Result(s) called to Lauren Elders at 11/10/2015 02:29 by FNS. Read back OK. CARDIAC Troponin-T 0.224 0.000 - 11/09 Result [place] ENZYMES 0.100 /2015 Comment: [facility] Result(s) called to Lauren Elders at 11/10/2015 02:39 by DH. Read back OK. CARDIAC Total CK 97 12 - 191 11/09 [place] ENZYMES /2016 [facility] CARDIAC CK MB Index 8.7 0.0 - 2.5 11/08 [place] ENZYMES /2016 [facility] CARDIAC CK MB 12.2 0.5 - 3.6 11/08 [place] ENZYMES /2016 [facility] CARDIAC Troponin-T 0.287 0.000 - 11/08 Result [place] ENZYMES 0.100 Comment: [facility] Result(s) called to Dana Madsen at 11/09/2015 19:12 by . Read back OK. CARDIAC Total CK 140 12 - 191 11/08 [place] ENZYMES /2016 [facility] CARDIAC Troponin-I 3.62 0.00 - 11/08 Result [place] ENZYMES 0.40 /2016 Comment: [facility] Result(s) called to Dana Madsen at 11/09/2015 19:12 by DH. Read back OK. MYOGLOBIN Myoglobin 139 25 - 72 / [place] /2016 [facility] Center CARDIAC CK MB 10.0 0.5 - 3.6 11/08 [place] ENZYMES /2016 [facility] Center CARDIAC CK MB Index 8.3 0.0 - 2.5 11/08 [place] ENZYMES /2016 [facility] Center CARDIAC Troponin-I 3.03 0.00 - 11/08 Result [place] ENZYMES 0.40 /2015 Comment: [facility] Result(s) called to Paulino Jones at 11/09/2015 14:57 by. Read back OK. CARDIAC Troponin-T 0.214 0.000 - 11/08 Result [place] ENZYMES 0.100 /2015 Comment: [facility] Result(s) called [facility] Ej Jones at [facility]/09[facility]2015 14[facility] Read [facility] OK. MYOGLOBIN Myoglobin 190 25 - 72 11/08 [place] /2016 [facility] Center BLOOD BANK Antibody Negative 11/08 [place] RESULTS Scrn (11/09/15 2:01 AM) /2015 [facility] BLOOD BANK ABO/Rh O POS 11/08 [place] RESULTS /2015 [facility] CHEM PANEL Globulin 3.6 2.0 - 4.0 / [place] /2016 [facility] Center CHEM PANEL Bili Total 0.4 0.2 - 1.3 / [place] /2016 [facility] Center CHEM PANEL Bili Direct 0.1 0.0 - 0.3 / [place] /2015 [facility] CHEM PANEL A/G Ratio 0.8 0.7 - 1.6 07/ [place] /2016 [facility] Center CHEM PANEL Bili 0.3 0.0 - 1.0 07/ [place] Indirect /2016 [facility] Center CHEM PANEL Total 6.6 6.4 - 8.4 / [place] Protein /2015 [facility] Center CHEM PANEL ALT 14 0 - 65 07/ [place] /2016 [facility] Center CHEM PANEL Alk Phos 77 39 - 136 / [place] /2016 [facility] CHEM PANEL Albumin Lvl 3.0 3.5 - 5.0 07/ [facility] s /2015 [facility] CHEM PANEL AST 11 0 - 37 07/ [facility]2015 [facility] TOXICOLOGY Vanco Lvl 22.3 11/07 [facility]2015 [facility] CHEM PANEL Alk Phos 73 39 - 136 07/ [facility]2015 [facility] CHEM PANEL Albumin Lvl 3.0 3.5 - 5.0 07 [facility] s [facility] CHEM PANEL Globulin 3.5 2.0 - 4.0 07/ [facility] CHEM PANEL Total 6.5 6.4 - 8.4 11/06 [facility] Protein [facility] CHEM PANEL AST 14 0 - 37 07 [facility] CHEM PANEL A/G Ratio 0.9 0.7 - 1.6 11/06 [facility]2015 [facility] CHEM PANEL ALT 18 0 - 65 11/06 [facility]2015 [facility] CHEM PANEL Bili 0.3 0.0 - 1.0 11/06 [facility] Indirect [facility] CHEM PANEL Bili Total 0.4 0.2 - 1.3 11/06 [facility] CHEM PANEL Bili Direct 0.1 0.0 - 0.3 11/06 [facility] s [facility] TOXICOLOGY [place] Lvl 7.7 11/06 [facility]2015 [facility] URINE CHEM U Protein 35.8 11/05 [facility] URINE CHEM U Creatinine 60.40 11/05 [facility] URINE CHEM U Osmolality 422 300 - 800 11/05 [facility] URINE CHEM U Potassium 10.9 11/05 2015 [facility] URINE CHEM U Chloride 104 11/05 [facility] URINE CHEM U Sodium 105 / [facility] URINE AND UA WBC <1 0 - 5 11/05 [facility] URINE AND UA Hyal Cast 3 0 - 2 11/05 [facility]2015 [facility] URINE AND UA RBC 1 0 - 2 11/[address] URINE AND UA Mucus Few /LPF None Seen 11/05 [facility] STOOL /LPF /2015 [facility] URINE AND UA Sq Epi None Seen 11/05 [facility] /2015 [facility] URINE AND UA <=1.0 0.1 - 1.0 11/05 [facility] STOOL Urobilinogen mg/dL /2015 [facility] URINE AND UA Ketones Negative Negative 11/05 [facility] STOOL mg/dL mg/dL [facility] URINE AND UA Nitrite Negative Negative 11/05 [facility] STOOL (11/06/15 5:36 AM) /2015 [facility] URINE AND UA Leuk Est Negative Negative 11/05 [facility] STOOL (11/06/15 5:36 AM) [facility] URINE AND UA Bili Negative Negative 11/05 [facility] STOOL *NA* /2015 [facility] (11/06/15 5:36 AM) [place] URINE AND UA Blood Trace Negative 11/05 [facility] STOOL *ABN* [facility] (11/06/15 5:36 AM) [place] URINE AND UA pH 5.5 5.0 - 8.0 11/05 [facility] STOOL /2015 [facility] URINE AND UA Protein 30 mg/dL Negative 11/05 [facility] STOOL mg/dL [facility] URINE AND UA Turbidity Clear Clear 11/05 [facility] STOOL (11/06/15 5:36 AM) [facility] URINE AND UA Spec Grav 1.011 <=1.030 11/05 [facility] STOOL /2015 [facility] URINE AND UA Glucose Negative Negative 11/05 [facility] STOOL mg/dL mg/dL [facility] URINE AND UA Color Yellow Yellow 11/05 [facility] STOOL *NA* /2015 [facility] (11/06/15 5:36 AM) [place] LIPIDS HDL 32 >=61 mg/dL 11/05 [facility] [facility] LIPIDS CHD Risk 4.06 4.00 - 11/05 [place] 7.30 [facility] LIPIDS VLDL 34 11/05 [facility] LIPIDS LDL 64 <=99 mg/dL 11/05 [place] (Calculated) [facility] LIPIDS Chol 130 <=199 11/05 [place] mg/dL [facility] LIPIDS Trig 172 <=149 11/05 [place] mg/dL [facility] BACTERIAL MRSA by PCR Negative 11/05 [facility] - SEROLOGY (11/06/15 2:36 AM) /2015 [facility] BLOOD BANK ABO/Rh O POS 11/05 [place] RESULTS /2015 [facility] BLOOD BANK Antibody Negative 11/05 [facility] RESULTS Scrn (11/06/15 2:36 AM) /2015 [facility] CHEM PANEL Lactic Acid 1.1 0.5 - 2.2 11/05 [place] L[place] [facility] SPECIAL Hgb A1C 5.8 <=5.6 % 11/05 [facility] CHEMISTRY /2015 [facility] ELECTROLYT AGAP 11.7 10.0 - 06/11 [facility] ES 20.0 /2015 [facility] ELECTROLYT eGFR 66 06/11 Result [facility] Comment: The Medical eGFR is Center calculated using the CKD-EPI formula. In most young, healthy individuals the eGFR will be >90 mL/min/1.73m2 . The eGFR declines with age. An eGFR of 60-89 may be normal in some populations, particularly the elderly, for whom the CKD-EPI formula has not been extensively validated. Use of the eGFR is not recommended in the following populations:< br/>
Nelly viduals with unstable creatinine concentration s, including patients and those with serious co-morbid conditions.<b r/>
Patie nts with extremes in muscle mass or diet.

The data above are obtained from the National Kidney Disease Education Program (NKDEP) which additionally recommends that when the eGFR is used in patients with extremes of body mass index for purposes of drug dosing, the eGFR should be multiplied by the estimated BMI. ELECTROLYT CO2 26 24 - 32 06/11 [facility] ELECTROLYT Chloride Lvl 105 95 - 109 06/11 [place] [facility] ELECTROLYT Potassium 3.7 3.5 - 5.1 06/11 [facility] ES Lvl /2015 [facility] ELECTROLYT Sodium Lvl 139 135 - 145 06/11 [facility] /2015 [facility] ELECTROLYT Creatinine 1.15 0.50 - 06/11 [facility] ES Lvl 1.40 /2015 [facility] ELECTROLYT Calcium Lvl 9.3 8.5 - 10.5 06/11 [place] [facility] ELECTROLYT BUN 19 7 - 22 06/11 [facility] ES /2015 [facility] ELECTROLYT Glucose Lvl 202 70 - 99 06/11 [facility] /2015 [facility] HEMATOLOGY Monocytes # 0.6 0.0 - 0.8 06/11 [place] /2015 [facility] HEMATOLOGY Lymphocytes 2.1 1.0 - 5.5 06/11 [place] # /2015 [facility] HEMATOLOGY Segs-Bands # 5.8 1.5 - 8.1 06/11 [place] /2015 [facility] HEMATOLOGY Segs 64.9 45.0 - 02 [place] 75.0 /2015 [facility] HEMATOLOGY Basophils 1.0 0.0 - 1.0 06/11 [facility] HEMATOLOGY Lymphocytes 23.6 20.0 - 02 [place] 40.0 /2015 [facility] HEMATOLOGY Eosinophils 4.0 0.0 - 4.0 06/11 s /2015 [facility] HEMATOLOGY Monocytes 6.5 2.0 - 12.0 06/11 [facility] HEMATOLOGY Basophils # 0.1 0.0 - 0.2 06/11 [facility] s /2015 [facility] HEMATOLOGY Eosinophils 0.4 0.0 - 0.5 06/11 [facility] s # /2015 [facility] HEMATOLOGY MCH 32.7 27.0 - 02 [place] 31.0 /2015 [facility] HEMATOLOGY MCHC 35.2 32.0 - 06/11 [place] 36.0 /2015 [facility] HEMATOLOGY MCV 92.9 80.0 - 06/11 [place] 94.0 /2015 [facility] HEMATOLOGY Hct 39.7 42.0 - 02 [place] 54.0 /2015 [facility] HEMATOLOGY Hgb 14.0 14.0 - 06/11 [place] 18.0 [facility] HEMATOLOGY MPV 8.5 7.4 - 10.4 06/11 [facility] HEMATOLOGY RDW 13.2 11.5 - 02/ [place] 14.5 [facility] HEMATOLOGY Platelet 226 133 - 450 02 [facility] HEMATOLOGY WBC 8.9 3.7 - 10.4 06/11 [facility] HEMATOLOGY RBC 4.27 4.70 - 02 [place] 6.10 [facility] HEMATOLOGY INR 1.15 0.85 - 02 [place] 1.17 /2015 [facility] HEMATOLOGY PTT 30.2 22.9 - 02 [place] 35.8 [facility] HEMATOLOGY PT 15.0 12.0 - 06/11 [place] 14.7 [facility] CHEM PANEL Creatinine 1.09 0.50 - 02 [facility] Lvl 1.40 /2015 [facility] CHEM PANEL eGFR 71 02/ [facility] Comment: The Medical eGFR is Center calculated using the CKD-EPI formula. In most young, healthy individuals the eGFR will be >90 mL/min/1.73m2 . The eGFR declines with age. An eGFR of 60-89 may be normal in some populations, particularly the elderly, for whom the CKD-EPI formula has not been extensively validated. Use of the eGFR is not recommended in the following populations:< br/>
Nelly viduals with unstable creatinine concentration s, including patients and those with serious co-morbid conditions.<b r/>
Patie nts with extremes in muscle mass or diet.

The data above are obtained from the National Kidney Disease Education Program (NKDEP) which additionally recommends that when the eGFR is used in patients with extremes of body mass index for purposes of drug dosing, the eGFR should be multiplied by the estimated BMI. CHEM PANEL eGFR 72 06/10 Result Comment: The Medical eGFR is Center calculated using the CKD-EPI formula. In most young, healthy individuals the eGFR will be >90 mL/min/1.73m2 . The eGFR declines with age. An eGFR of 60-89 may be normal in some populations, particularly the elderly, for whom the CKD-EPI formula has not been extensively validated. Use of the eGFR is not recommended in the following populations:< br/>
Nelly viduals with unstable creatinine concentration s, including patients and those with serious co-morbid conditions.<b r/>
Patie nts with extremes in muscle mass or diet.

The data above are obtained from the National Kidney Disease Education Program (NKDEP) which additionally recommends that when the eGFR is used in patients with extremes of body mass index for purposes of drug dosing, the eGFR should be multiplied by the estimated BMI. CHEM PANEL AST 18 0 - 37 06/10 [facility] CHEM PANEL Alk Phos 77 39 - 136 06/10 [facility] CHEM PANEL Bili Total 0.5 0.2 - 1.3 06/10 [facility] CHEM PANEL Total 7.3 6.4 - 8.4 06/10 [facility] Protein [facility] CHEM PANEL B/C Ratio 19 6 - 25 06/10 [facility]2015 [facility] CHEM PANEL Albumin Lvl 3.4 3.5 - 5.0 06/10 [place] [facility] CHEM PANEL ALT 28 0 - 65 02 [facility] CHEM PANEL A/G Ratio 0.9 0.7 - 1.6 02/ [facility] CHEM PANEL Globulin 3.9 2.0 - 4.0 02 [facility] CHEM PANEL Calcium Lvl 9.1 8.5 - 10.5 06/10 [place] /2015 [facility] CHEM PANEL AGAP 15.4 10.0 - 02/ [place] 20.0 /2015 [facility] CHEM PANEL Creatinine 1.08 0.50 - 02 [place] Lvl 1.40 /2015 [facility] CHEM PANEL BUN 20 7 - 22 02 [facility] CHEM PANEL Sodium Lvl 143 135 - 145 02 [facility] CHEM PANEL Glucose Lvl 196 70 - 99 06/10 [facility] CHEM PANEL CO2 23 24 - 32 06/10 [facility] CHEM PANEL Chloride Lvl 108 95 - 109 06/10 s /2015 [facility] CHEM PANEL Potassium 3.4 3.5 - 5.1 06/10 [place] Lvl /2015 [facility] HEMATOLOGY Hct 39.9 42.0 - 02 [place] 54.0 /2015 [facility] HEMATOLOGY MCHC 33.7 32.0 - 02 [place] 36.0 /2015 [facility] HEMATOLOGY MCH 31.4 27.0 - 02 [place] 31.0 /2015 [facility] HEMATOLOGY RDW 13.7 11.5 - 02 [place] 14.5 /2015 [facility] HEMATOLOGY MCV 93.4 80.0 - 02/ [place] 94.0 /2015 [facility] HEMATOLOGY WBC 11.8 3.7 - 10.4 02 [facility] HEMATOLOGY Hgb 13.4 14.0 - 02/ [place] 18.0 /2015 [facility] HEMATOLOGY RBC 4.27 4.70 - 02 [place] 6.10 /2015 [facility] HEMATOLOGY MPV 8.5 7.4 - 10.4 06/10 [facility] HEMATOLOGY Platelet 224 133 - 450 02 [facility] HEMATOLOGY PT 15.2 12.0 - 02 [place] 14.7 /2016 [facility] HEMATOLOGY PTT 32.7 22.9 - 02/ [place] 35.8 /2016 [facility] HEMATOLOGY INR 1.17 0.85 - 02 [place] 1.17 /2015 [facility] HEMATOLOGY Basophils # 0.1 0.0 - 0.2 02 [place] [facility] HEMATOLOGY Segs-Bands # 7.5 1.5 - 8.1 02 [place] [facility] HEMATOLOGY Basophils 0.7 0.0 - 1.0 02 [facility] HEMATOLOGY Lymphocytes 25.3 20.0 - 02 [place] 40.0 [facility] HEMATOLOGY Segs 64.1 45.0 - 02 [place] 75.0 [facility] HEMATOLOGY Eosinophils 4.3 0.0 - 4.0 02 [facility] HEMATOLOGY Monocytes 5.6 2.0 - 12.0 06/10 [facility] HEMATOLOGY Lymphocytes 3.0 1.0 - 5.5 06/10 [facility] s [facility] HEMATOLOGY Monocytes # 0.7 0.0 - 0.8 06/10 [facility] s [facility] HEMATOLOGY Eosinophils 0.5 0.0 - 0.5 06/10 [facility] s [facility] LIPIDS VLDL 35 02 [facility] LIPIDS Trig 173 <=149 06/10 [facility] mg/dL [facility] LIPIDS LDL 28 <=99 mg/dL 06/10 [facility] (Calculated) [facility] LIPIDS CHD Risk 3.33 4.00 - 06/10 [facility] 7.30 [facility] LIPIDS HDL 27 >=61 mg/dL 06/10 [facility] LIPIDS Chol 90 <=199 06/10 [facility] mg/dL [facility] SPECIAL Hgb A1C 6.9 <=5.6 % 06/10 [facility] CHEMISTRY [facility] URINE AND UA <=1.0 0.1 - 1.0 06/10 [facility] STOOL Urobilinogen mg/dL [facility] URINE AND UA Nitrite Negative Negative 06/10 [facility] STOOL (06/10/15 2:01 AM) [facility] URINE AND UA Bili Negative Negative 06/10 [facility] STOOL *NA* /2015 [facility] (06/10/15 2:01 AM) [place] URINE AND UA Blood Negative Negative 06/10 [facility] STOOL (06/10/15 2:01 AM) /2015 [facility] URINE AND UA WBC <1 0 - 5 06/10 [facility] STOOL [facility] URINE AND UA Leuk Est Negative Negative 06/10 [facility] (06/10/15 2:01 AM) /2015 [facility] URINE AND UA pH 6.5 5.0 - 8.0 06/10 [facility] URINE AND UA Spec Grav 1.023 <=1.030 06/10 [facility] URINE AND UA Turbidity Clear Clear 06/10 [facility] (06/10/15 2:01 AM) /2015 [facility] URINE AND UA Color Light Yellow Yellow 06/10 [facility] STOOL *NA* [facility] (06/10/15 2:01 AM) [place] URINE AND UA Ketones Negative Negative 06/10 [facility] STOOL mg/dL mg/dL [facility] URINE AND UA Glucose 50 mg/dL Negative 06/10 [facility] mg/dL /2015 [facility] URINE AND UA Protein Negative Negative 06/10 [facility] mg/dL mg/dL /2015 [facility] URINE AND UA Sq Epi None Seen 06/10 [facility] DRUG U Cannab Scr Negative Negative 06/10 [place] SCREEN *NA [facility] (06/09/15 10:52 PM) [place] DRUG UDS Note See Note 06/10 [place] SCREEN * [facility] (06/09/15 10:52 PM) Center DRUG U Opiate Scr Negative Negative 06/10 [place] SCREEN * Medical (06/09/15 10:52 PM) Center DRUG U Phencyc Negative Negative 06/10 [facility] SCREEN Scr * [facility] (06/09/15 10:52 PM) Center DRUG U Cocaine Negative Negative 06/10 [place] SCREEN Scr * Medical (06/09/15 10:52 PM) Center DRUG U Lisa Scr Negative Negative 06/10 [place] SCREEN * Medical (06/09/15 10:52 PM) Center DRUG U Benzodia Negative Negative 06/10 [facility] SCREEN Scr * [facility] (06/09/15 10:52 PM) Center DRUG U Amph Scr Negative Negative 06/10 [place] SCREEN * Medical (06/09/15 10:52 PM) Center URINE AND UA Bacteria Rare 06/10 [facility] /2015 [facility] URINE AND UA RBC None Seen 0 - 2 06/10 [facility] (06/09/15 7:49 PM) [facility] URINE AND UA WBC 0-2 /HPF None Seen 06/10 [facility] STOOL /HPF /2015 [facility] URINE AND UA Sq Epi Rare /LPF Few /LPF 06/10 [facility] STOOL /[address] [place] [id number] URINE AND UA Nitrite Negative Negative 06/10 [facility] (06/09/15 7:49 PM) /2015 [facility] URINE AND UA Leuk Est Negative Negative 06/10 [facility] (06/09/15 7:49 PM) /2015 [facility] URINE AND UA Color Yellow Yellow 06/10 [facility] *NA* /2015 [facility] (06/09/15 7:49 PM) [place] URINE AND UA Turbidity Clear Clear 06/10 [facility] (06/09/15 7:49 PM) [facility] URINE AND UA 0.2 0.1 - 1.0 06/10 [facility] Urobilinogen /2015 [facility] URINE AND UA Bili Negative Negative 06/10 [facility] *NA* /2015 [facility] (06/09/15 7:49 PM) [place] URINE AND UA Blood Negative Negative 06/10 [facility] (06/09/15 7:49 PM) /2015 [facility] URINE AND UA Ketones Negative Negative 06/10 [facility] mg/dL mg/dL [facility] URINE AND UA Glucose Negative Negative 06/10 [facility] mg/dL mg/dL [facility] URINE AND UA pH 6.0 5.0 - 8.0 06/10 [facility] URINE AND UA Protein Negative Negative 06/10 [facility] mg/dL mg/dL [facility] URINE AND UA Spec Grav 1.025 <=1.030 06/10 [facility] CARDIAC Troponin-I <0.02 0.00 - 06/10 [facility] ENZYMES 0.40 [facility] CHEM PANEL Bili 0.4 0.0 - 1.0 06/10 [facility] Indirect [facility] CHEM PANEL A/G Ratio 0.9 0.7 - 1.6 06/10 [facility] /[address] [place] [id number] CHEM PANEL Globulin 4.0 2.0 - 4.0 06/10 [facility] [address] [place] [id number] CHEM PANEL Total 7.6 6.4 - 8.4 06/10 [facility] Protein [facility] CHEM PANEL Albumin Lvl 3.6 3.5 - 5.0 02 [facility] CHEM PANEL Bili Total 0.5 0.2 - 1.3 02 [facility] CHEM PANEL Bili Direct 0.1 0.0 - 0.3 06/10 [facility] CHEM PANEL ALT 28 0 - 65 02 [facility] CHEM PANEL Alk Phos 88 39 - 136 02 [facility] CHEM PANEL AST 28 0 - 37 02 [facility] CHEM PANEL Lipase Lvl 475 73 - 393 06/10 [facility] CHEM PANEL BUN 28 7 - 22 06/10 [facility] CHEM PANEL Sodium Lvl 140 135 - 145 06/10 [facility] CHEM PANEL CO2 25 24 - 32 02 [facility] CHEM PANEL Calcium Lvl 9.1 8.5 - 10.5 06/10 [facility] CHEM PANEL Chloride Lvl 106 95 - 109 06/10 [facility] CHEM PANEL Potassium 4.2 3.5 - 5.1 06/10 [facility] CHEM PANEL Glucose Lvl 93 70 - 99 02 [facility] CHEM PANEL AGAP 13.2 10.0 - 06/10 [facility] 20.0 [facility] HEMATOLOGY PTT 26.6 22.9 - 02 [facility] 35.8 /2015 [facility] HEMATOLOGY INR 1.10 0.85 - 02 1.17 /2015 [facility] HEMATOLOGY PT 14.5 12.0 - 02 [place] 14.7 /2015 [facility] HEMATOLOGY Hgb 13.8 14.0 - 02/ [place] 18.0 [facility] HEMATOLOGY RBC 4.27 4.70 - 02 [place] 6.10 /2015 [facility] HEMATOLOGY WBC 13.6 3.7 - 10.4 02 [facility] HEMATOLOGY MPV 8.6 7.4 - 10.4 02 [facility] HEMATOLOGY MCV 95.4 80.0 - 02 [place] 94.0 /2015 [facility] HEMATOLOGY Hct 40.7 42.0 - 02 [place] 54.0 /2016 [facility] HEMATOLOGY Platelet 278 133 - 450 02 [facility] HEMATOLOGY RDW 13.8 11.5 - 02 [place] 14.5 /2015 [facility] HEMATOLOGY MCHC 33.9 32.0 - 02/ [place] 36.0 /2015 [facility] HEMATOLOGY MCH 32.4 27.0 - 02/ [place] 31.0 [facility] HEMATOLOGY Basophils # 0.2 0.0 - 0.2 02 [facility] s [facility] HEMATOLOGY Eosinophils 0.6 0.0 - 0.5 02 [place] # /2015 [facility] HEMATOLOGY Monocytes # 0.9 0.0 - 0.8 02 [facility] HEMATOLOGY Lymphocytes 3.4 1.0 - 5.5 02 [facility] s # /2015 [facility] HEMATOLOGY Monocytes 6.8 2.0 - 12.0 06/10 [facility] HEMATOLOGY Lymphocytes 24.9 20.0 - 02 [place] 40.0 [facility] HEMATOLOGY Segs 62.7 45.0 - 06/10 [place] 75.0 [facility] HEMATOLOGY Segs-Bands # 8.5 1.5 - 8.1 06/10 [facility] HEMATOLOGY Basophils 1.2 0.0 - 1.0 06/10 [facility] HEMATOLOGY Eosinophils 4.4 0.0 - 4.0 06/10 [facility] LIPIDS LDL 16 <=99 mg/dL 06/10 [facility] (Calculated) [facility] LIPIDS VLDL 53 02 [facility] LIPIDS HDL 29 >=61 mg/dL 06/10 [facility] LIPIDS Trig 266 <=149 06/10 [facility] mg/dL [facility] LIPIDS Chol 98 <=199 06/10 [facility] mg/dL [facility] LIPIDS CHD Risk 3.38 4.00 - 02 [place] 7.30 [facility] BEDSIDE Gluc POC 215 70 - 99 01/14 [place] <sup>1</sup>I [facility] GLUCOSE [facility] /2011 nterpretive Medical TESTING Data: Center Upper Reportable Limit: 200 mg/dL. BEDSIDE Comment1 Sliding 01/14 NA [facility] GLUCOSE Scale /2011 Medical TESTING Center BEDSIDE Gluc POC 148 70 - 99 01/14 [place] <sup>2</sup>I [facility] GLUCOSE [place] /2011 nterpretive Medical TESTING Data: Center Upper Reportable Limit: 200 mg/dL. CHEMISTRY Troponin-I <0.02 0.00 - 01/14 Normal [facility] 0.40 [facility] CHEMISTRY Troponin-T <0.010 0.000 - 01/14 Normal [facility] 0.100 [facility] CHEMISTRY Myoglobin 52 25 - 72 01/14 Normal [facility] CHEMISTRY Total CK 118 12 - 191 01/14 Normal [facility] CHEMISTRY CK MB Index 1.6 0.0 - 2.5 01/14 Normal [facility] CHEMISTRY CK MB 1.9 0.5 - 3.6 01/14 Normal [facility] CHEMISTRY CK MB 1.7 0.5 - 3.6 01/14 Normal [facility] CHEMISTRY CK MB Index 1.4 0.0 - 2.5 01/14 Normal [facility] CHEMISTRY Troponin-I <0.02 0.00 - 01/14 Normal [facility] 0. [facility] CHEMISTRY Troponin-T <0.010 0.000 - 01/14 Normal [facility] 0. [facility] CHEMISTRY Total CK 122 12 - 191 01/14 Normal [facility] BEDSIDE Gluc POC 105 70 - 99 01/14 [place] <sup>3</sup>I [facility] GLUCOSE nterpretive Medical TESTING Data: [place] Upper Reportable Limit: 200 mg/dL. CHEMISTRY Magnesium 1.5 1.8 - 2.4 01/13 LOW [facility] Lv [facility] Center CHEMISTRY Phosphorus 2.4 2.5 - 4.5 01/13 LOW [facility] CHEMISTRY Troponin-I <0.02 0.00 - 01/13 Normal [facility] 0.40 [facility] CHEMISTRY Troponin-T <0.010 0.000 - 01/13 Normal [facility] 0. [facility] Center CHEMISTRY Globulin 3.4 2.0 - 4.0 01/13 Normal [facility] CHEMISTRY A/G Ratio 1.2 0.7 - 1.6 01/13 Normal [facility] CHEMISTRY AGAP 20.3 10.0 - 01/13 [place] 20.0 [facility] Center CHEMISTRY B/C Ratio 15 6 - 25 01/13 [facility] CHEMISTRY Alk Phos 111 39 - 136 01/13 [facility] CHEMISTRY ALT 63 0 - 65 01/13 [facility] CHEMISTRY Bili Total 0.5 0.2 - 1.3 01/13 [facility] CHEMISTRY AST 33 0 - 37 01/13 [facility] CHEMISTRY Albumin Lvl 4.1 3.5 - 5.0 01/13 [facility] CHEMISTRY Total 7.5 6.4 - 8.4 01/13 [facility] CHEMISTRY CO2 24 24 - 32 01/13 [facility] CHEMISTRY Sodium Lvl 140 135 - 145 01/13 [facility] CHEMISTRY Chloride Lvl 100 95 - 109 01/13 [facility] CHEMISTRY Calcium Lvl 9.1 8.5 - 10.5 01/13 Normal [facility] CHEMISTRY Potassium 4.3 3.5 - 5.1 01/13 Normal [facility] CHEMISTRY BUN 15 7 - 22 01/13 [facility] CHEMISTRY Glucose Lvl 231 70 - 99 01/13 [place] <sup>4</sup>I T ex nterpretive Medical Data: Adult Center reference range values reflect the clinical guidelines
of the [employer] [place] [employer]. CHEMISTRY Creatinine 1.0 0.5 - 1.4 01/13 Normal [facility] CHEMISTRY Total CK 187 12 - 191 01/13 Normal [facility] HEMATOLOGY Monocytes # 0.5 0.0 - 0.8 01/13 [facility] HEMATOLOGY Lymphocytes 2.4 1.0 - 5.5 01/13 [place] [facility] HEMATOLOGY Basophils # 0.1 0.0 - 0.2 01/13 [facility] HEMATOLOGY Eosinophils 0.3 0.0 - 0.5 01/13 [place] [facility] HEMATOLOGY Lymphocytes 20.1 20.0 - 01/13 Normal [place] 40.0 /2011 [facility] HEMATOLOGY Basophils 1.1 0.0 - 1.0 01/13 [facility] HEMATOLOGY Monocytes 3.8 2.0 - 12.0 01/13 [facility] HEMATOLOGY Segs 72.2 45.0 - 01/13 Normal [place] 75.0 /2011 [facility] HEMATOLOGY Segs-Bands # 8.7 1.5 - 8.1 01/13 [place] /2011 [facility] HEMATOLOGY Eosinophils 2.8 0.0 - 4.0 01/13 [place] [facility] HEMATOLOGY INR 0.91 0.85 - 01/13 Normal <sup>5</sup>I [place] 1.17 nterpretive Medical Data: Center RECOMMENDED RANGES FOR PROTIME INR:
2.0-3.0 for most medical and surgical thromboemboli c states.
2.5-3.5 for artificial heart valves and recurrent embolism.<br/ >
INR SHOULD BE USED ONLY FOR PATIENTS ON STABLE ANTICOAGULANT THERAPY. HEMATOLOGY PTT 30.2 22.9 - 01/13 Normal <sup>6</sup>I [place] 35.8 nterpretive Medical Data: Heparin Center Therapeutic Range: 57 - 92 Second[facility] HEMATOLOGY PT 12.5 12.0 - 01/13 Normal [place] 14.7 /2011 [facility] HEMATOLOGY MCV 96.0 80.0 - 01/13 [facility] [place] 94.0 [facility] HEMATOLOGY Hct 46.9 42.0 - 01/13 Normal [place] 54.0 /2011 [facility] HEMATOLOGY RBC 4.88 4.70 - 01/13 Normal [place] 6.10 [facility] HEMATOLOGY Hgb 16.0 14.0 - 01/13 Normal [place] 18.0 [facility] HEMATOLOGY WBC 12.0 3.7 - 10.4 01/13 [facility] HEMATOLOGY MPV 8.8 7.4 - 10.4 01/13 Normal [facility] HEMATOLOGY Platelet 201 133 - 450 01/13 Normal [facility] HEMATOLOGY RDW 12.6 11.5 - 01/13 Normal [place] 14.5 [facility] HEMATOLOGY MCHC 34.2 32.0 - 01/13 Normal [place] 36.0 /2011 [facility] HEMATOLOGY MCH 32.9 27.0 - 01/13 [facility] [place] 31.0 [facility] IMMUNOLOGY [facility] [place] 1/2 Negative Negative 01/13 NA [place] Ab *NA* /2011 Medical (01/14/2012 11:16:00) Ce nter Pathology Reports No Data Provided for This Section Diagnostic Reports Report Value Date Source Chest 1view DX EXAM: XR CHEST 1 VIEW 10/13/2016 [facility] edical DATE: 10/13/2016 3:00 AM [facility] er INDICATION: post L pleural CT removal cxr - post L pleural CT removal cxr TECHNIQUE: AP chest IMPRESSION: There is a persistent small left apical pneumoth orax, without worsening. Small bilateral pleural effusions. Mild patchy airspace opaciti es in both lung bases, which could represent atelectasis or consolidation. Mild residual left chest wall subcutaneous emphy sema. A previous left chest tube has been removed. Chest 1view DX EXAM: XR CHEST 1 VIEW 10/12/2016 [facility] edical DATE: 10/12/2016 9:00 AM [facility] er INDICATION: post op VATS, we dge resection; chest tubes x 2 - post op VATS, wedge resection; chest tubes x 2 COMPARISON: Previous Day FINDINGS: Lines/Tubes/Devices: Left thoracostomy tube stab le. Heart and Mediastinum: Moderate cardiomegaly is present. Lungs and Pleura: Bilateral basilar airspace opacity suggesting atelectasis and/or pneumonia with small left effusion. Cutaneous gas left chest wall. Probable small left apical pneumothorax present. Other: None. IMPRESSION: 1. Probable small left apic al pneumothorax with left thoracostomy tube present. 2. Basilar atelectasis versus pneumonia with sm all left effusion. Chest 1view DX EXAM: XR CHEST 1 VIEW 10/11/2016 [facility] edical DATE: 10/11/2016 9:00 AM [facility] Cente r INDICATION: - post op VATS, wedge resection; ch est tubes x 2 COMPARISON: Previous Day FINDINGS: Lines/Tubes/Devices: 1 of 2 left thoracostomy tu bes removed. Heart and Mediastinum: Moderate cardiomegaly is present. Lungs and Pleura: Moderate b ibasilar airspace opacities present. While evaluation is limited given positioning, no distinct pneumothorax is identified. Subcutaneous emphysema overlies left chest. Other: None. IMPRESSION: 1. Removal one of 2 left thoracostomy tubes. No pneumothorax. 2. Bibasilar airspace opaci ty suggesting atelectasis and/or pneumonia, stable. Chest 1view DX EXAM: XR CHEST 1 VIEW 10/10/2016 [facility] edical DATE: 10/10/2016 9:00 AM CDT Cente r INDICATION: - post op VATS, wedge resection; ch est tubes x 2 TECHNIQUE: AP chest IMPRESSION: 2 left-sided chest tubes are in place. Small left apical pneumothorax. Diffuse airspace opacities a re demonstrated, which could represent atelectasis, consolidation, or otherwise. Moderate left chest wall subcutaneous emphysema. Chest 1view DX EXAM: XR CHEST 1 VIEW 10/09/2016 [facility] edical DATE: 10/09/2016 11:59 AM CDT Cent er INDICATION: - post op TECHNIQUE: AP chest IMPRESSION: Moderate-marked left chest wall subcutaneous emp hysema. There is a small left apical pneumothorax. This is improved when compared to an exam from [facility] this morning. A left chest tube remains in place. Chest 1view DX EXAM: XR CHEST 1 VIEW 10/08/2016 [facility] edical DATE: 10/08/2016 2:00 PM CDT Cente r INDICATION: - f/u L pneumothorax COMPARISON: Same day 147 FINDINGS: Lines/Tubes/Devices: Left thoracostomy tube stab le. Heart and Mediastinum: The c ardiomediastinal silhouette is enlarged, possibly partially related to portable technique and/or low lung volumes. Lungs and Pleura: Small left pneumothorax and patchy airspace opacity left lung base stable. Subcutaneous emphysema left chest wall stable. Other: None. IMPRESSION: 1. Overall stable exam with no significant inte rval change. Chest 1view DX EXAM: XR CHEST 1 VIEW 10/08/2016 [facility] ed[facility] DATE: 10/08/2016 3:00 AM CDT Cente r INDICATION: pneumothorax - pneumothorax TECHNIQUE: AP chest IMPRESSION: A left chest tube remains in place. A small to moderate left pne umothorax is grossly similar in appearance since the exam from yesterday evening. No new consolidation. Stable mediastinal contours. Chest 1view DX EXAM: XR CHEST 1 VIEW 10/08/2016 [facility] DATE: 10/09/2016 3:00 AM CDT Cente r INDICATION: intubated - intubated TECHNIQUE: AP chest IMPRESSION: There is a moderate-sized le ft pneumothorax, which is increased in size when compared to the exam from yesterday at 1359. Left chest tube remains in place. There is no evidence of new consolidation. Mild to moderate compressive atelectasis of the left lung. Left chest wall subcutaneous emphysema. Stable mediastinal contours. Chest 1view DX EXAM: XR CHEST 1 VIEW 10/07/2016 [facility] ed[facility] DATE: 10/07/2016 7:00 PM CDT Cente r INDICATION: L pneumothorax - L pneumothorax COMPARISON: Same day 1331 FINDINGS: Lines/Tubes/Devices: Left thoracostomy tube stab le. Heart and Mediastinum: The c ardiomediastinal silhouette is enlarged, possibly partially related to portable technique and/or low lung volumes. Aortic vascular calcifications and tortuosity of the descending thoracic aorta present. Lungs and Pleura: Small to m oderate pneumothorax extending from the left apex to the left lung base is again noted, slightly less conspicuous. Linear opacities left lung base suggest atelectasis. Other: None. IMPRESSION: 1. Left pneumothorax slightly smaller with thor acostomy tube in place. Chest 1view DX EXAM: XR CHEST 1 VIEW 10/07/2016 [facility] edical DATE: 10/07/2016 1:30 PM CDT Cente r INDICATION: - evaluation of chest tube TECHNIQUE: AP chest IMPRESSION: A moderate to large left pne umothorax is slightly worsened in appearance when compared to an exam from earlier this morning. Spoke with Dr. Hilliard at 1525 on 10/07/2016. A left chest tube remains in place. Remainder of findings are not significantly alfaro ged since 10/07/2016 at 0021. Chest 1view DX EXAM: XR CHEST 1 VIEW 10/07/2016 [facility] edical DATE: 10/07/2016 3:00 AM CDT Cente r INDICATION: intubated ICU - intubated ICU COMPARISON: 10/06/2016. TECHNIQUE: AP chest FINDINGS: Right lung is clear. A moderate sized left pneumo thorax is increased in size since yesterday, despite a persistent left-sided chest tube. Stable mediastinal contours. Left chest wall subcutaneous emphysema. IMPRESSION: Increase in size of now mode rate left pneumothorax, despite left chest tube. Discussed with Dr. Issa just before signature of this report. Chest 1view DX EXAM: XR CHEST 1 VIEW 10/06/2016 [facility] edical DATE: 10/06/2016 6:00 PM CDT Cente r INDICATION: monitor pneumothorax. - Monitor pneu mothorax. COMPARISON: Same day 1305 FINDINGS: Lines/Tubes/Devices: Stable left thoracostomy tu be. Heart and Mediastinum: The c ardiomediastinal silhouette is enlarged, possibly partially related to portable technique and/or low lung volumes. Lungs and Pleura: Small to m oderate left pneumothorax, airspace opacities left mid and lower lung, and subcutaneous emphysema left chest wall stable. Other: None. IMPRESSION: 1. Stable small to moderate left pneumothorax w ith left thoracostomy tube. Chest 1view DX EXAM: XR CHEST 1 VIEW 10/06/2016 [facility] edical DATE: 10/06/2016 1:00 PM CDT Cente r INDICATION: - Concern for increasing pneumothor ax. FINDINGS: Comparison is made to October 06 at 7:24 A M. The cardiomediastinal silhou ette is stable. There is subcutaneous emphysema in the left chest wall. There is a persistent modera te pneumothorax extending from the apex down laterally to the base and located medially. A left-sided chest tube remains in place. There are patchy alveolar op acities in the left lung which could be due to atelectasis, pneumonia, and/or hemorrhage. The right lung is well expan ded with subsegmental atelectasis at the right lung base. No pleural effusions are identified. IMPRESSION: 1. Persistent left pneumotho rax which is moderately sized, not significantly changed. There is a left-sided chest tube in place. 2. Patchy airspace opacities in the left lung could be due to atelectasis, pneumonia or hemorrhage. 3. Right lower lobe subsegmental atelectasis. Chest 1view DX EXAM: XR CHEST 1 VIEW 10/06/2016 [facility] ed[facility] DATE: 10/06/2016 7:10 AM CDT Cente r INDICATION: - pneumo, chest tube placement on l eft, bloody drainage. FINDINGS: Comparison is made to October 06 at 1:04 A M. The left pneumothorax has in creased, extending from the apex down laterally to the base and also located medially. It is moderately sized. A left-sided chest tube remains in place. No pleural effusions are identified. There are alveolar opacities throughout the lungs bilaterally, greater on the left. This could be due to edema, pneumonia, or hemorrhage. The cardiomediastinal silhouette is stable. There is subcutaneous emphysema in the left ches t wall. IMPRESSION: 1. Moderate left pneumothorax, increased from pr ior. 2. Bilateral airspace opacities, greater on the left. 3. Subcutaneous emphysema in the left chest wall . Abdomen/Pelvis wo IV PROCEDURE: ABDOMEN AND PELVIS CT 03/08/2016 [facility] [place] contrast CT CLINICAL INDICATION: I71.4. AAA. COMPARISON: Abdomen and pelv is CT 11/19/2015 and 11/06/2015. Renal ultrasound 11/06/2015. TECHNIQUE: Axial helical CT imaging was performed from the diaphragm through the pubic symphysis with oral contrast only. Coronal and sagittal reformatted images are available. DLP: 960.60 mGy-cm. Please note that lack of int ravenous contrast limits evaluation of the organs and vasculature. FINDINGS: LOWER CHEST: There is a stab le 5 mm noncalcified indeterminant pulmonary nodule in the left lower lobe (image 2 series 3). There is a subcentimeter calcified granuloma in the left lower lobe. There is m ild scattered subsegmental a telectasis versus scarring. The heart size is upper limits of normal. There are coronary artery calcifications. ORGANS: There is fatty infil tration of the pancreas most pronounced in the pancreatic head. Several tiny calcifications at the level of the pancreatic head and body are likely vascular. There are subcen timeter calcified splenic gr anulomas. There is nonspecific stranding of the bilateral perinephric fat. There is a 2.9 cm exophytic mid left renal cortical cyst. There is no demonstrable urinary tract ca lculus. There is no hydronep hrosis. There is no demonstrable abnormality of the liver, gallbladder or adrenal glands. BOWEL: There is a nonobstruc tive bowel gas pattern. There is scattered colonic diverticulosis primarily involving the descending and sigmoid colon without demonstrable acute diverticulitis. Apparent seg mental wall thickening of th e sigmoid colon may be due to underdistention and muscular hypertrophy limiting evaluation of the colonic wall. There is no additional demonstrable bowel abnormality. The appendix is normal. PERITONEUM: There is no free intraperitoneal air or ascites. RETROPERITONEUM: There is an aortoiliac stent graft, new from 11/09/2015, with the superior aspect of the stent immediately inferior to the level of the renal arteries and limbs extending into both comm on iliac arteries. Again not ed is fusiform aneurysmal dilatation of the infrarenal abdominal aorta measuring maximal dimensions of approximately 6.2 cm anterior-posterior x 5.7 cm transversely. There ar e aortic calcifications. The re is calcification at the origin of the superior mesenteric artery. There is no demonstrable aortic rupture. There is no pathologic retroperitoneal lymphadenopathy. PELVIS: There is no demonstr able abnormality of the prostate gland, seminal vesicles or poorly distended urinary bladder. There are pelvic arterial vascular calcifications. There is a surgical clip in the right groin. MUSCULOSKELETAL: There is a small umbilical hernia containing fat measuring a width of approximately 1.5 cm. There is a 1.4 cm sebaceous cyst in the posterior subcutaneous fat of the right lower thorax. There are degenerative alfaro ges of the spine, bilateral sacroiliac joints and pubic symphysis. There are postoperative changes of a left hemilaminectomy at L5-S1. There is multilevel spinal stenosis of the lumbar spine secondary t o degenerative changes. This would be better assessed with lumbar spine magnetic resonance imaging. IMPRESSION: 1. New aortoiliac stent graft. 2. The remaining findings on the current examination have not significantly changed from the most recent comparison abdomen and pelvis CT performed 11/09/2015. SL: 15 Chest 1view DX Study: Chest 1view DX 01/24/2016 [facility] Clinical Indication: PICC Line Placement Comparison: Chest x-ray from 01/17/2016 FINDINGS: Cardiac silhouette is mildly enlarged. Moderate pulmonary edema is seen. No pleural effusion or pneumothorax is noted. The osseous structures are unremarkable. IMPRESSION: Moderate pulmonary edema. SL: [id number] Chest 2 views DX Patient Name: FRANK HARDIN 01/17/2016 [facility] : 1950; Age: 65 years y/o Male MR: [id number] * CHEST, 2 views HISTORY: Coughing COMPARISON: 11/14/2015. A [facility] computed tomography scan of 11/09/2015 was also reviewed. TECHNIQUE: Frontal and lateral radiographs of th e chest were obtained. IMPRESSION: 1. No evidence of an active or acute process. There are no infiltrates or pleural effusions. 2. Mild chronic changes. The re is mild pulmonary hyperexpansion with flattening the hemidiaphragms consistent with chronic obstructive pulmonary disease/emphysematous changes. There is also mild scarring in both lung bases. 3. Mild cardiomegaly without overt failure. 4. Mild degenerative changes involving the thoracic spine. The regional skeleton is otherwise unremarkable. SL: [id number] Chest 1view DX EXAM: XR CHEST 1 VIEW 11/14/2015 [facility] edical DATE: 11/14/2015 3:00 AM CDT [facility] er INDICATION: Dyspnea COMPARISON: Chest radiograph dated yesterday. TECHNIQUE: AP chest FINDINGS: The left internal jugular central venous catheter has been removed. Increase in interstitial pulmonary edema. Small bilateral pleural effusions are noted. There is no pneumothorax. The cardiom ediastinal silhouette is stable. There are no os seous abnormalities. IMPRESSION: 1. Increase in pulmonary edema. 2. Small bilateral pleural effusions. Chest 1view DX EXAM: XR CHEST 1 VIEW 11/13/2015 [facility] edical DATE: 11/13/2015 3:00 AM CDT Cent er INDICATION: Dyspnea COMPARISON: Chest radiograph dated 11/12/2015 at 2:17 AM TECHNIQUE: AP chest FINDINGS: The left internal jugular central venous catheter has been removed. There are new areas of interstitial thickening, particularly in the lower lobes. No focal consolidations are seen. There is a small left pleural effusio n. The right costophrenic sulcus is sharp. There is no pneumothorax. The cardiac mediastinal silhouette is stable. There are no osseous abnormalities. IMPRESSION: 1. Interval removal of left internal jugular ce ntral venous catheter. 2. New interstitial opaciti es with new small left pleural effusion likely representing pulmonary edema. Abdomen AP DX EXAM: XR ABDOMEN 3 FRONTAL VIEWS 11/12/2015 [facility] DATE: 11/12/2015 6:16 PM CDT Cent er INDICATION: Abdominal distension ADDITIONAL INFORMATION: None. COMPARISON: None. TECHNIQUE: Frontal views of the abdomen. FINDINGS: Lines and tubes: Removal NG tube. No current johnnie es and tubes. Lower thorax: Bibasilar airspace disease. Bowel: Marked gaseous disten tion of the stomach. Retained contrast within the colon. No definite small bowel dilatation. Solid organs: No abnormal mass or organomegaly s een. Calcifications: No abnormal calcifications found . Bones: No acute osseous lesions. IMPRESSION: 1. Marked gaseous distentio n of the stomach. This may benefit from NG tube placement. 2. No small bowel dilatation. Chest 1view DX EXAM: XR CHEST 1 VIEW 11/12/2015 [facility] ed[facility] DATE: 11/12/2015 Center INDICATION: Dyspnea . Comparison is made with FINDINGS: The gastric tube h as been removed. Cardiomediastinal silhouette is prominent but unchanged. There is a left jugular central line with its tip at the junction of the left brachiocephalic vein with the superior vena cava. There is platelike atelectasis at both lung base s. The upper lungs are clear IMPRESSION: The gastric tube has been removed. New platelike atelectasis at both lung bases. Abdomen AP DX EXAM: XR ABDOMEN 1 VIEW 11/11/2015 [facility] DATE: 11/10/2015 10:30 PM CDT Cent er INDICATION: Tube placement/removal/reposition ADDITIONAL INFORMATION: None. COMPARISON: None. TECHNIQUE: AP view of the abdomen. FINDINGS: IMPRESSION: Nasogastric tube is coiled w ithin the gastric cardia with side-port overlying the GE junction. Recommend repositioning and further advancement. Chest 1view DX EXAM: XR CHEST 1 VIEW 11/11/2015 [facility] DATE: 11/11/2015 Center INDICATION: Dyspnea . Comparison is made with FINDINGS: A new gastric tube is been inserted and courses below the diaphragm beyond the confines of the chest radiograph. The left jugular central line tip is in the superior vena cava. Cardiomediastinal silhouette is stable Costophrenic sulci are sharp. The lungs are chi r IMPRESSION: New gastric tube. Chest 1view DX EXAM: XR CHEST 1 VIEW 11/10/2015 [facility] DATE: 11/10/2015 3:00 AM T Cente r INDICATION: Dyspnea. FINDINGS: Comparison is made to November 08. The cardiomediastinal silhou ette is stable. There is a left jugular central venous catheter in place. Interstitial pulmonary edema has resolved. No pleural effusions are identified. IMPRESSION: Interstitial pulmonary edema has res olved. Chest wo contrast CT EXAM: CT CHEST WITHOUT CONTRAST 11/09/2015 [facility] DATE: 11/09/2015 2:19 AM CDT Cente r INDICATION: Chest pain TECHNIQUE: Volumetric CT acq uisition of the chest was obtained without contrast. Sagittal, coronal and axial MIP reformatted images were reconstructed and obtained at the workstation. COMPARISON: None available. FINDINGS: The heart is not enlarged, a nd no significant pericardial effusion is identified. There is mild lipomatous hypertrophy of the interatrial septum. There are aortic valve and aortic calcifications. Calcif ications are identified in t he left main, left anterior descending, left circumflex and right coronary arteries. The ascending aorta is normal in caliber. The pulmonary trunk is slightly prominent at 31 mm, the right pulmonary artery 26 mm and the le ft pulmonary artery 25 mm. There is a left jugular central venous catheter in place. Note is made of subcentimete r mediastinal lymph nodes. Calcified left hilar lymph nodes are the result of granulomatous disease. For a description of finding s below the diaphragm, please reference the separate abdomen and pelvis CT report from the same day November 08. No pleural effusions are pre sent. There is dependent atelectasis in the bilateral lower lobes and right upper lobe. There is centrilobular and paraseptal emphysema with an apical predilection. Small 4 t o 5 mm pulmonary nodules are identified in the right middle lobe on axial image 98, left apex on axial image 39, and in the left lower lobe image 109. Note is made of a calcified granuloma at the left lung base. Anteriorly flowing osteophytes are noted along t he thoracic spine. IMPRESSION: 1. Centrilobular and paraseptal emphysema with a n apical predilection. 2. Three small pulmonary nod ules are identified, measuring 4 to 5 mm. The [employer] guidelines for nodules measuring up to 6 mm in size is as follows: If this patient is a low risk patient (nons moker and no known tumor or risk factors thereof), then a repeat chest CT should be obtained in 12 months and, if unchanged, then no further follow-up is needed. However, in a high risk patient (history of smoking or other known r isk factors), then a repeat chest CT should be obtained in 6 to12 months and, if unchanged, then at 18 to 24 months. 3. Aortic, aortic valve, and coronary artery ashwin cifications. 4. The central pulmonary art eries are slightly prominent which could indicate elevated right heart pressures. Abdomen/Pelvis wo IV EXAM: CT ABDOMEN AND PELVIS WITHOUT CONTRA ST 11/09/2015 [facility] contrast CT DATE: 11/09/2015 1:34 AM CDT Cente r INDICATION: Back pain ADDITIONAL INFORMATION: 65-y ear-old male with history of infrarenal abdominal aortic aneurysm, hypertension presents with back pain and acute abdominal pain. COMPARISON: None. TECHNIQUE: Volumetric CT acq uisition of the abdomen and pelvis without the intravenous administration contrast. Axial, coronal and sagittal reconstructions. IV contrast: None. Oral contrast: None. DLP: 1786.2 mGy FINDINGS: Lines and tubes: None. Lower thorax: Please refer t o the dedicated CT chest without contrast from the same day. Liver: Normal size and conto ur. Diffuse fatty infiltration of the liver parenchyma was identified. Biliary tree: No intra- or extrahepatic biliary ductal dilation. Gallbladder: No CT evidence of gallstones. Pancreas: No atrophy of the pancreas is identified with fatty replacement. No focal mass is identified. Spleen: Multiple calcified granulomas within the spleen are identified. Adrenals: Normal. Kidneys and ureters: No hydr onephrosis. No obstructing renal calculus is identified. A 2.5 x 2.7 cm exophytic renal lesion of the left interpolar region is identified on image 32, series 4 with internal attenuation of 28 Hounsfiel d units. Mild persistent perinephric fat stranding without fluid collections, may be related to chronic renal disease. Bladder: Normal. Reproductive organs: No CT abnormality. Gastrointestinal tract: Exte nsive sigmoid diverticulosis with persistent mild mesenteric fat stranding and inflammation adjacent to the left lower quadrant. No fluid collection or air is seen to suggest for complication. No focal loop dilation or bowel thickening is identified. Positive contrast from 11/05/2015 is seen to the level of the rectum, the portions of the large bowel without evidence for ob struction. The cecal pneumatosis is no longer pr esent. Appendix: Normal as identified on image 52, seri es 4 Peritoneum and retroperitoneum: No free intraper itoneal air or fluid. Lymph nodes: Given the lack of IV contrast, no lymphadenopathy by CT size criteria is identified. Vasculature: The saccular in frarenal aortic aneurysm remains at 5.5 cm in diameter with extension into the bilateral common iliac vessels with maximum diameter of 2.2 cm, and over a craniocaudal dimensi on of 8.8 cm. Given the lack of IV contrast, there is limitation to the evaluation of the vasculature. However, no caliber change or retroperitoneal hematoma is identified. Bones: Multilevel degenerati ve changes of the spine is most prominent at the level of L5-S1. Multiple compressive changes of the lumbar spine including L1 and L2. No acute lesion is identified. Soft tissues: Normal. IMPRESSION: 1. Persistent mild uncompli cated sigmoid diverticulitis without fluid collection. 2. Resolved cecal pneumatosis. 3. A 2.7 cm exophytic left interpolar lesion with mixed attenuation, nonemergent renal US or CT with contrast can be obtained for further characterization if warranted. 4. Persistent 5.5cm infrare nal abdominal aorta with extension into the iliac arteries without retroperitoneal hematoma. 5. Multilevel degenerative changes of the thora columbar lumbosacral spine. Chest 1view DX EXAM: XR CHEST 1 VIEW 11/09/2015 [facility] DATE: 11/09/2015 Center INDICATION: Central Line Placement . Comparison is made with yesterday FINDINGS: The patient has a new left jugular central line with its tip in the superior vena cava. Lung volumes are low. This p roduces spurious widening of the transverse diameter of the heart and mediastinum and crowding of the basal lung markings. This produces platelike atelectasis at both lung ba ses. Underlying consolidation is not excluded.. The upper lungs are clear. IMPRESSION: 1. Low lung volumes 2. New left jugular central line. Chest 1view DX EXAM: XR CHEST 1 VIEW 11/08/2015 [facility] edical DATE: 11/08/2015 3:00 AM CDT Cente r INDICATION: Abnormal chest sounds. FINDINGS: Comparison is made yesterday morning. The cardiomediastinal silhou ette is stable with ectatic and tortuous aorta. The lungs are clear and well-expanded. No pleural effusions are identified. IMPRESSION: The lungs are clear. Chest 1view DX EXAM: XR CHEST 1 VIEW 11/07/2015 [facility] DATE: 11/07/2015 3:00 AM CDT Cente r INDICATION: Abnormal chest sounds COMPARISON: Yesterday. TECHNIQUE: AP chest FINDINGS: Lines and tubes: None. Lungs and pleura: No pulmonary or pleural based abnormality is identified. Heart and mediastinum: The h eart size is normal for technique. The mediastinal contours are normal. Bones: There are findings of diffuse idiopathic skeletal hyperostosis. The bony structures are intact. IMPRESSION: No acute findings. Torso-Outside Consult CT EXAM: CT ABDOMEN AND PELVIS WITHOU T CONTRAST 11/06/2015 [facility] DATE: 11/06/2015 2:50 PM CDT Cente r INDICATION: 65-year-old male complaining of stomach pain, with history of infrarenal abdominal aortic aneurysm measuring up to 55 mm. Care team ordered secondary interpretation of outside study to provide higher level of care. COMPARISON: None available. TECHNIQUE: Volumetric CT acq uisition of the abdomen and pelvis without the intravenous administration contrast. Axial, coronal and sagittal reconstructions. IV contrast: None. Oral contrast: None. DLP: 1589 mGy FINDINGS: Lines and tubes: None. Lower thorax: Limited view o f the mediastinum and heart reveals three-vessel calcified atherosclerotic changes involving the left anterior descending, left circumflex and the right coronary artery. No p leural effusion is identified. The bases of the lungs are clear. Liver: The liver has a peyton l size and contour. Diffuse fatty infiltration is present. Biliary tree: No intra- or e xtrahepatic biliary ductal dilation. No portal venous gas is seen. Gallbladder: No CT evidence of gallstones. Pancreas: Mild fatty infiltration of the body of the pancreas is identified. Spleen: Spleen contains punctate calcifi cations likely representing granulomas Adrenals: Normal. Kidneys and ureters: No hydr onephrosis. No radiopaque obstructing renal calculus is identified. Bladder: The bladder is mildly contracted withou t wall thickening. Reproductive organs: No CT abnormality. Gastrointestinal tract: Sigm oid diverticulosis with mild mesenteric fat stranding adjacent to the sigmoid diverticulosis. No free air is identified. No collection is identified. No other focal loop dila tion or bowel thickening is identified. Pneumatosis of the cecal bowel wall is identified without adjacent mesenteric fat stranding. Appendix: Normal as identified on image 59, seri es 201. Peritoneum and retroperitone um: No free intraperitoneal air or fluid is identified.. Lymph nodes: Given the lack of IV contrast, no lymphadenopathy is identified at CT size criteria. Vasculature: Diffuse calcifi ed atherosclerotic changes of the abdominal aorta, its iliac and visceral branches. A 5.4 saccular infrarenal abdominal aneurysm is identified with mild extension to the bila teral common iliac vessels which measures up to 2.1 cm. Bones: Multiple compressive changes of the lumbar spine include L1-L2. Degenerative disc disease of the lumbar spine is most prominent at the level of L5-S1 with disc vacuum phenomena. Soft tissues: Normal. IMPRESSION: 1. Uncomplicated, mild sigmoid divertic ulitis without perforation or abscess. 2. Infrarenal abdominal aor tic aneurysm which measures up to 5.5 cm with extension into the common iliac vessels which measure up to 2.1 cm. 3. Cecal pneumatosis intest inalis without signs to suggest for ischemia such as portal venous gas or mural thickening. 4. Triple-vessel coronary calcification. Retroperitoneal Complete EXAM: US RENAL 11/06/2015 [facility] US DATE: 11/06/2015 at 0958 hours C enter INDICATION: Renal insufficiency ADDITIONAL INFORMATION: None. COMPARISON: None. TECHNIQUE: Multiplanar ciro tolu and color Doppler ultrasound of the kidneys and urinary bladder. FINDINGS: Right kidney: Size: 11.4 x 6.3 x 5.5 cm. Hydronephrosis: None. Echogenicity: Normal. Calculi: None. Cysts/Masses: None. Left kidney: Size: 12.9 x 6.2 x 6.1 cm. Hydronephrosis: None. Echogenicity: Normal. Calculi: None. Cysts/Masses: Simple appeari ng cyst in the mid left kidney laterally is 2.9 x 2.5 x 2.3 cm. Bladder: Normal. Other: Increased attenuation of the hepatic parenchyma is in keeping with steatosis. IMPRESSION: 1. No evidence of obstruction as a cause for re nal failure. 2. Simple (Bosniak 1) the left renal cyst. 3. Hepatic steatosis. Chest 1view DX EXAM: XR CHEST 1 VIEW 11/06/2015 [facility] DATE: 11/06/2015 2:33 AM CDT Cente r INDICATION: Arrhythmias. FINDINGS: Comparison is made to June 09. The cardiomediastinal silhou ette is stable. The lungs are clear. The costophrenic sulci are sharp, without effusions. IMPRESSION: No acute abnormality. Brain wo contrast MRI EXAM: MRI BRAIN WITHOUT CONTRAST 6 [facility] DATE: 06/10/2015 9:54 AM SUBSCRIPTION CLERK Cente r INDICATION: Hemiparesis COMPARISON: CT brain without contrast 06/09/2015 TECHNIQUE: Multiplanar, mutisequence MRI of the brain without contrast. IV contrast: None. FINDINGS: 2 small foci of restricted d iffusion in the left cerebellar hemisphere with corresponding FLAIR hyperintense signal abnormality. Additional foci of T2 and FLAIR hyperintense signal abnormality are seen throughout the supratentoria l white matter, basal ganglia, thalamus, alejandra and left cerebellum. Scattered chronic lacunar infarcts are seen in the supratentorial white matter, basal ganglia, thalami and alejandra. No evidence of prior i ntracranial hemorrhage or mass effect. Mild generalized cerebral volume loss with compensatory enlargement of ventricles and sulci. The major proximal intracranial flow voids are preserved. Fluid signal in the left gre ater than right mastoid air cells. Mild mucosal thickening in the paranasal sinuses. Orbits are unremarkable. IMPRESSION: There are at least 2 subcent imeter acute infarcts in the left cerebellar hemisphere. No significant intracranial mass effect or recent hemorrhage. Chronic microangiopathic dorina nges in the supratentorial white matter, deep huang nuclei and alejandra. Brain/Neck CTA EXAM: CTA BRAIN 06/09/2015 [facility] EXAM: CTA NECK Center DATE: 06/09/2015 at 1955 hours. INDICATION: Facial numbness COMPARISON: CT head dated 06/09/2015. TECHNIQUE: Rapid acquisition spiral CT images of the brain and neck were obtained between the aortic arch and the cranial vertex during intravenous infusion of iodinated contrast for the purposes of CT angiography . 3-D CT angiographic images are created using MIP technique at the acquisition workstation. The source images are also presented for interpretation. IV contrast: 85 mL of Visipaque DLP: 1356 mGy-cm FINDINGS: NECK CTA: Aortic arch: There are ather osclerotic calcifications and noncalcified atherosclerotic plaque in the arch of the aorta. There is a penetrating atheromatous ulcer within the aortic arch. This could be a potential source for distal embolization. Atherosclerotic plaque extends into the origin of the left common carotid artery and left subclavian artery with no flow limiting stenosis. There is atheroscler otic disease of the right middleton bclavian origin with approximately 50% stenosis. The great vessels originate from the aortic arch in the standard configuration. No origin stenosis is identified. The vertebral artery origins are patent bilaterally. Carotid arteries: There is n oncalcified atherosclerotic plaque throughout the course of the common carotid arteries. There is calcified and noncalcified atherosclerotic plaque at the carotid bifurcation s, greater on the left. Ther e is a focal ulceration of the plaque in the proximal left internal carotid artery. This could also be a potential source for distal embolization. The right cervical internal carotid artery is normal in course, caliber, and contour. No hemodynamically significant stenosis of the carotid bifurcations or internal carotid arteries is present by NASCET criteria. There is no evidence of vascular injury. Vertebral arteries: The vert ebral arteries have a normal course, caliber and contour. The soft tissues of the neck are unremarkable. There are emphysematous changes in the bilateral lung apices. BRAIN CTA: There are atherosclerotic ca lcifications in the bilateral cavernous and supraclinoid internal carotid arteries with no flow-limiting stenosis. The right A1 segment is diminutive in size with a dominant left A1 segment. The bilater al A2 segments are normal in appearance. The middle cerebral arteries are widely patent with no focal stenosis. There is a right poste rior cerebral artery. The left P-comm is diminutive in size. The left posterior cerebral artery is normal. The vertebral arteries are codominant. No focal stenosis is identif ied. The vertebrobasilar elliot ction and basilar artery are normal. There is opacification of both PICAs. No branch occlusion, vascula r injury, arteritis, vascular malformation or aneurysm is identified. The deep cerebral veins and major venous sinuses are normal. The brain parenchyma is unre markable. There are multiple dental caries with a periapical lucency of the right 1st molar. There are minimal degenerative changes of the cervical spine. IMPRESSION: 1. No branch occlusion or focal stenosis is oscar ntified. 2. Atherosclerotic disease of the bilateral common carotid arteries carotid bifurcations and intracranial internal carotid arteries as described above. Ulceration of the plaque of the left internal carotid bifurcation is a potential embolic source. 3. Penetrating atheromas in the aortic arch and proximal left internal carotid artery which could be a potential source for distal embolization (bowel, kidneys, extremities). (All qualitative and quantit ative assessments of carotid bifurcation and proximal internal carotid artery stenosis are made referencing the distal internal carotid artery {NASCET criteria}.) Chest 2 views DX EXAM: XR CHEST 2 VIEWS 06/09/2015 [facility] DATE: 06/09/2015 6:22 PM SUBSCRIPTION CLERK Cente r INDICATION: Chest pain COMPARISON: Chest radiograph 01/14/2012 TECHNIQUE: PA and lateral chest radiographs FINDINGS: Lines and tubes: None. Lungs and pleura: No pulmonary or pleural bas ed abnormality is identified. Heart and mediastinum: The h eart size is normal for technique. The mediastinal contours are normal. Bones: No acute bony abnormality is identified. IMPRESSION: No acute cardiopulmonary abnormalit y. Consultation Notes No Data Provided for This Section Discharge Summaries No Data Provided for This Section History and Physicals No Data Provided for This Section Vital Signs Vital Sign Value Date Comments Source Systolic (mm Hg) 127 10/13/2016 [facility] Diastolic (mm Hg) 62 10/13/2016 [facility] Systolic (mm Hg) 146 10/13/2016 [facility] Diastolic (mm Hg) 66 10/13/2016 [facility] Systolic (mm Hg) 130 10/13/2016 [facility] Diastolic (mm Hg) 63 10/13/2016 [facility] Respitory Rate 18 10/13/2016 [facility] Temperature Oral (F) 97.9 F 10/13/2016 [facility] Respitory Rate 20 10/13/2016 [facility] Temperature Oral (F) 99.3 F 10/13/2016 [facility] Temperature Oral (F) 97.9 F 10/13/2016 [facility] Respitory Rate 18 10/12/2016 [facility] Height 177.8 cm 10/06/2016 [facility] Weight 105.9 10/06/2016 [facility] BMI Calculated 33.5 10/06/2016 [facility] Systolic (mm Hg) 147 01/25/2016 [facility] Diastolic (mm Hg) 65 01/25/[address] Respitory Rate 18 01/25/2016 [facility] Systolic (mm Hg) 151 01/25/2016 [facility] Diastolic (mm Hg) 72 01/25/[address] Respitory Rate 16 01/25/2016 [facility] Systolic (mm Hg) 181 01/25/2016 [facility] Diastolic (mm Hg) 75 01/25/[address] Respitory Rate 14 01/25/2016 [facility] Rate 64 01/24/2016 [facility] Temperature Oral (F) 98.1 F 01/17/2016 [facility] Rate 72 01/17/2016 [facility] BMI Calculated 35.37 01/17/2016 [facility] Weight 115.045 01/17/2016 [facility] Height 180.34 cm 01/17/2016 [facility] Rate 22 11/14/2015 [facility] Systolic (mm Hg) 136 11/14/2015 [facility] Diastolic (mm Hg) 58 11/14/2015 [facility] Respitory Rate 22 11/14/2015 [facility] Systolic (mm Hg) 135 11/14/2015 [facility] Diastolic (mm Hg) 68 [facility]/14/[facility] Resp[facility] Rate 25 11/14/2015 [facility] Systolic (mm Hg) 121 11/14/2015 [facility] Diastolic (mm Hg) 61 11/14/2015 [facility] Temperature Oral (F) 97.3 F 11/14/2015 [facility] Temperature Oral (F) 97.6 F 11/14/2015 [facility] Temperature Oral (F) 96.9 F 11/13/2015 [facility] Height 177.8 cm 11/06/2015 [facility] Weight 114.2 11/06/2015 [facility] BMI Calculated 36.12 11/06/2015 [facility] BMI Calculated 36.12 11/06/2015 [facility] Weight 114.2 11/06/[address] [facility] Height 177.8 cm 11/06/[facility] Systolic (mm Hg) 155 06/11/2015 [facility] Diastolic (mm Hg) 83 06/11/2015 [facility] Respitory Rate 20 06/11/2015 [facility] Temperature Oral (F) 97.2 F 06/11/2015 [facility] Heart Rate 60 06/11/2015 [facility] Heart Rate 60 06/11/2015 [facility] Respitory Rate 18 06/11/2015 [facility] Systolic (mm Hg) 147 06/11/2015 [facility] Diastolic (mm Hg) 78 06/11/2015 [facility] Temperature Oral (F) 97.9 F 06/11/2015 [facility] Respitory Rate 16 06/11/2015 [facility] Systolic (mm Hg) 148 06/11/2015 [facility] Diastolic (mm Hg) 74 06/11/2015 [facility] Heart Rate 68 06/11/[facility] Temperature Oral (F) 97.2 F 06/11/2015 [facility] BMI Calculated 36.09 06/10/2015 [facility] Height 177.8 cm 06/10/2015 [facility] Weight 114.091 06/10/2015 [facility] Weight 115 06/09/2015 [facility] BMI Calculated 36.38 06/09/2015 [facility] Height 177.8 cm 06/09/2015 [facility] Diastolic (mm Hg) 66 01/15/2012 [facility] Heart Rate 88 01/15/2012 [facility] Systolic (mm Hg) 140 01/15/2012 [facility] Respitory Rate 18 01/15/2012 [facility] Diastolic (mm Hg) 82 01/15/2012 [facility] Center Systolic (mm Hg) 177 01/15/2012 [facility] Temperature Oral (F) 98.6 F 01/15/2012 [facility] Respitory Rate 20 01/15/2012 [facility] Heart Rate 95 01/15/2012 [facility] Systolic (mm Hg) 185 01/15/2012 [facility] Temperature Oral (F) 97.2 F 01/15/2012 [facility] Heart Rate 97 01/15/2012 [facility] Diastolic (mm Hg) 83 01/15/2012 [facility] Center Respitory Rate 20 01/15/2012 [facility] Temperature Oral (F) 97.8 F 01/15/2012 [facility] Weight 113.636 01/14/2012 [facility] Height 177.80 cm 01/14/2012 [facility] Encounters Location Location Encounter Encounter Reason Attending ADM DC Stat us Source Details Type Number For Provider Date Date Visit [facility] [id number] SHONDA 01/13 01/14 Discharg [facility] Neida MAYS /2011 [facility] [id number] Holly 06/09 06/11 Jc Parrish /2015 [facility] Inpatient [id number] Darien Javier 11/05 11/14 Jc Young /2015 [facility] [id number] Bharath 01/23 01/25 Hector Guillermo /2015 [facility] Diag [id number] Bharath 03/08 03/09 [facility] [place] [facility]2015 [facility] Inpatient [id number] Garbo Ezekiel 10/06 10/13 [facility] /2016 [facility] Procedures Procedure Code Date Perfomer Comments Source Tonsillectomy [id number] 05/05/1956 [facility] Stent [id number] in heart x5 [facility] placement<sup>1</sup> times. [facility] Cardiac [id number] [facility] catheterization [facility] Laminectomy [id number] [facility] Assessment and Plan Assessment and Plan Date Source Extracted from:Title: CV Surgery 10/13/2016 [facility] Author: Bernard Fam MD Date: 10/13/16 CV Surgery Discharge Summary Patient Name: Frank Hardin Date of Admission: 10/06/16 Date of Discharge: 10/13/16 Admission Diagnosis: AAA (abdominal aortic aneurysm) without rupture Acute diverticulitis Acute renal failure Apnea, sleep Brain TIA CAD (coronary atherosclerotic disease) Chest pain Diabetes Elevated serum creatinine MEKORYUK - Hard of hearing HTN - Hypertension Large left persistent pneumothorax, apic al bullae, chronic obstructive pulmonary disease, morbid obesity Discharge Diagnosis: AAA (abdominal aortic aneurysm) without rupture Acute diverticulitis Acute renal failure Apnea, sleep Brain TIA CAD (coronary atherosclerotic disease) Chest pain Diabetes Elevated serum creatinine [place] - Hard of hearing HTN - Hypertension Large left persistent pneumothorax (reso lved), apical bullae, chronic obstructive pulmonary disease, morbid obesity Consultations: [facility] Operative Procedures: 1. Fiberoptic bronchoscopy and bronchial suction and lavage . 2. Left video-assisted thoracoscopic middleton rgery with lysis of adhesions, wedge resection of the left upper lobe and pleural lavage and drainage. 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 Kentrell moore reports he was sitting at wedding with sudden onset of shortness of breath and chest pain radiating to left neck at 2100 yesterday. Patient arrived to [facility] chest x-ray concerning for p neumothorax on left, chest tube placed. Concern for tension pneumothorax by CT chest. Transferred to [facility] MICU for HLOC. Patient with 140 ml bloody drainage pr ior to arrival. Patient with non-rebreat her placed due to O2 sat in upper 80s, sat 97-100% on non-rebreather. Pt. went to the OR with CT surgery on 10/09 for bronchoscopy, L VATS with LEENA, wedge resection of STACIE and pleural lavage with drainage . He tolerated the procedure well and was transferred to CVIMU postoperatively. He required oxygen while in the IMU as his pain was only mildly controlled with PO analgesia. He began progressing well an d remaining chest tubes were removed on 10/11 and 10/12. On 10/13 his pain was well controlled, denied N/V, was tolerating a regular diet, labs and vitals were within normal limits and he was deemed safe to be discharged home. Physical Exam: Gen: A&O x3, NAD Heart: RRR, S1, S2, no m/r/g Neck: Ecchymosis of b/l neck, stable in size and appearance Lungs: breathing non-labored, equal chest expansion, CTAB Abd: soft, non-tender, non-distended, crystal wel sounds present in all 4 quadrants. RLQ ostomy in place Vascular: radial, femoral, DP/PT pulses 2+ bilaterally, hands and feet warm/well perfused/brisk capillary refill MSK: FROM all 4 extremities Neuro: CN II-XII grossly intact, motor/s ensory function grossly in all 4 extremities. Home Care Instructions Notify Physician if any of the Following Occur : Bleeding, Fever, Nausea, Pain, Shortness of breath, Signs of infection, Swelling Are There Any Activity Restrictions : Yes Activity : Activity as tolerated, Ambulation allowed, No s trenuous activity Driving : No driving until advised by physician Bathing : Shower only Lifting : No heavy lifting Pounds limited to lift : 5 lbs Discharge Diet Home Diet : Diet Carbohydrate Controlled Physician Follow-Up v2 Follow-Up With Provider : physician Provider #1 : Klaus Perkins MD Follow-Up Call : Call for appointment Follow-up with MH Provider within : 1 Week Reason : Post Op Visit Bernard Fam MD MSO # [id number] Extracted from:Title: UTPCCM CVIMU Progress Note Complex * Author: Michelle Ray DO Date: 10/13/16 Impression and Plan Mr Hardin is a 66 yr old man: -Admitted 10/06 with spontaneous PTX -Long history of Tobacco smoking; quit 05/2016; 1ppd for man ral decaedes -Essential HTN -2011 EVAR for symptomatic ABD AA -Large left persistent pneumothorax with apical bullae -chronic obstructive pulmonary disease with out acute excerb ation -morbid obesity,due excessive calories, BMI 33 -Diabetes mellitus type 2 -Post op respiratory insufficiency - Fiberoptic bronchoscopy and b ronchial suction and lavage; Left video- assisted thoracoscopic surgery with lysis of adhesions, wedge resection of the left upper lobe and pleural lavage and drainage -CKD 3, nonoliguiria, NAREN -Acute postop hypoxia -JOSH, on home CPAP -History of atherosclerotic CAD -History of diverticulousis Hemodynamics are controlled, ASA, Statin Bradycardic, BB held; previous AbdAA VEP, IS encouraged; Walk test completed, pt has o2 at home, O2 sat 90% walking on room air SQ heparin for DVT prophylaxis PO diet, PPI Lytes adequate, nonoliguria, CKD, recomm end renal consult 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; previously followed by Tre previous admission for EVAR Diuresis PRN HB/plts adequate, no further clinical losses Analgesia Target BS under 180 per unit protocol PT/OT, increase activity If goes emre eneed renal and pulmonary follow-up as outpt PT states he has a procurement intern but doesnt know his name or his location Discussed with pt at bedside, plan of care, medications and answered questions Extracted from:Title: Clinical Document Author: Kalin Galvez MD Date: 10/06/16 Thoracic srgery H&P CC: pneumothorax HPI: 66 Y/O M with Hx of A-fib, TIA (on xarelto), DM, HTN, CHF, sleep apnea, previous ND, AAA S/P EVAR, significant smoking Hx Transfered from OSH with pneumothorax.The patient reports that he felt acut e onset of SOB and chest pain the evenin g before last during a wedding after he had coughing episode. He was seen at OSH and chest tube was placed with improvement of symptoms. The patient reports Hx of minor truma to anterior chest 4 days ag o but that was not realted to symptoms. He never had a pneumothorax before. He is using CPAP at night and denies home O2. PMH: Afib, TIA, HTN, Dm, CHF, CAD, COPD. sleep apnea, AAA PSH: EVAR 2016, lower back spinal surgery Medications: see JUL Social: active smoker 1-2 PPD, denies ilicit drugs or EtOH Allergies:Robaxin, statins, sulfa ROS: 10 system ROS negative except mentioned in HPI Physical Exam: Vitals Tmp(F) Pulse BP RR SpO2 FIO2 10/06 22:00 ---- 72 177/84 14 100 --- 10/06 21:00 ---- 72 179/87 12 100 --- 10/06 20:00 96 72 180/88 12 100 --- 10/06 18:00 ---- 81 204/98 10 100 100% 10/06 17:30 ---- 83 210/97 13 100 --- 24 Hr Tmax: 97.6F (36.44c) at 10/06 16:0 0 Vital Signs are the last 5 in the past 48 hours. General : NAD, with non rebreather mask Head Normochephalic Neck: supple no bruits Heart: RRR no murmers Chest: good breath sounds B/L. chest tub e in L hemithorax. Significant airleak present. Abdomen: Obese. S/NT/ND Extremities: no edema, palpabel DP B/L CXR - L mild-mod size pneumothorax, L chest tube in place CT OSH - chest tube in place but L lung completly collapsed with mediastinal shift to the right. A/P: 66 Y/O Male with spontaneous pneumothorax and large sub stential leak No need for urgent surgical intervention Repeat CXR in AM Keep chest tube to suction Wean down O2 as possible Addendum by Klaus Perkins MD on 10/07/2016 13:[address] Venancio Perkins have personally e xqamined this patient and agree with above evaluation. Would not be in a hurry to take off O2 as Oxygen is more soluble in blood as opposed to N2 and leana would help uicker resolutiopn of the pneumothorax. Extracted from:Title: MICU H&P Author: Cullen Davidson MD Date: 10/06/16 Impression and Plan Impression and Plan Patient is 66 year old male A-fib, previ ous TIA (on xarelto), DM, HTN, CHF, sleep apnea, previous ND, aortic aneurysm 5.5 cm (s/p AAA stent and graft repair 01/2016), 50 yr 1-2 ppd smoking history presents with left-sided pneumothorax. Problem List: Left pneumothorax Hypoxemic respiratory failure COPD CKD Prior CAD Lung nodules Aortic aneursym DM Afib TIA Neuro: -AAOx4 -patient with PRN morphine for pain -continue to monitor CV: *HTN -patient started on nifedipine 60 mg PO ER once, metoprolol 50 mg BID -home regimen per chart lasix 40 mg PO B ID, nifedipine 60 mg PO BID, doxazosin 2 mg PO BID, isorbide mononitrate 20 mg PO TID, metoprolol tartrate 50 mg PO BID. -troponins wnl, EKG without ST elevation, T-wave inversion. Pulmonary: *Left pneumothorax -28 F chest tube to suction with continuous air leak -repeat chest x-ray continue to monitor -consider CV consult tomorrow -continue to monitor output 140 ml prior to arrival *hypoxemic respiratory failure -on non-rebreather -continue to follow ABGs Renal/electrolytes: -continue to monitor urine output, manage electrolytes GI: -NPO for now Endo: -medium SSI ID: -no active issues Heme: -trend hgb repeat in AM Code:Full code DVT ppx: holding xarelto GI ppx: not indicated Dispo: pending improvement in respiratory status Extracted from:Title: Clinical Document 01/26/2016 [facility] Author: Alfred Bhatti MD Date: 01/25/16 I have seen and examined the patient wit h the NET WEB APPLICATION DEVELOPER and the multidisciplinary team, I have reviewed labs, radiological test, overnight events. I agree with the note , in addition : Current Problems : 1. Status post AAA stent and graft repair. 2. Coronary artery disease. 3. Paroxysmal atrial fibrillation. 4. Likley COPD 5. History of sleep apnea. Remove A line Currently on high flow nasal cannula Wean O2, if weaned off can transfer to Floor Discussed with Dr. Guillermo Extracted from:Title: CVICU JEFFY Discharge 11/15/2015 [facility] Author: RosalbaLoli NET WEB APPLICATION DEVELOPER Date: 11/14/15 Discussed with CV surgery (Dr. Home Hatfield) ok for patient to discharge home today. Discussed with Dr. Plasencia when plan for discharge home today and when to follow up. Suggest 2 weeks and will p kika to schedule colonoscopy at that time . Discussed with Critical Care Attending (Dr. Ray) discharge plan to home today. Set up Home O2 to be delivered to patients home, Set up walker per PT/OT recomm endations, Set up Diabetes Education doug or to discharge. Discussed with patient new medication therapies and follow up appointments. Patient states he will set up follow up appointment with primary care physician for post-hospitalization care , new medication regimen plan and any additional referral needed including endocrinology and nepherology services. All services ok with plan of care and patient will discharge home with today. Extracted from:Title: Clinical Document Author: Ludivina Heredia NET WEB APPLICATION DEVELOPER Date: 11/14/15 Discharge Summary Name: Rashawn Hardin Record Number: [id number] Admission Date: 11/06/2015 Admission DX: Infrarenal abdominal aortic aneurysm Acute Diverticulitis Acute kidney injury Leukocytosis Diarrhea Hypertension urgency Active tabacco abuse Morbid obesity Discharge Date: 11/14/2015 Discharge DX: Infrarenal abdominal aortic aneurysm Acute Diverticulitis, improved Acute kidney injury Leukocytosis, resolved Diarrhea Hypertension Active tabacco abuse Morbid obesity NSTEMI Diabetes Mellitus PROCEDURES PERFORMED: 11/10/2015 1. Retrograde 6 Latvian right arterial access 2. Selective coronary angiography HPI: 65-year-old male with history of sm oker, coronary artery disease, atrial fibrillation, hypertension and diabetes mellitus admitted with a history of dizziness, abdominal pain, loose stools. Patien t underwent a CT scan of the abdomen wit h the finding of 5.5 cm aortic abdominal aneurysm and diverticulitis. Patient was transferred to [facility] for higher level of care. Hospital course: Admitted to CVICU unit. Cardene started for hypertension control. Case evaluated by CVS with findings of infrarenal abdominal aortic aneurysm of 5.5 cm with recommendations of surgical management after evaluation of acute div erticulitis by general surgery. Genenral surgery evaluation of diverticulitis with recommendations for nonsurgical treatment with bowel rest, IV ABX and IVF. ID c onsulted for management of Leukocytosis with blood and urine cultures obtained and Cefepime, Flagyl and Vancomycin started. 11/07/15 Noted with chest pain and increas ed anxiety, EKG and CE noted negative, keep in ICU for observation. Clear liquids started. 11/09/15 Continued on clear liquids, WBC s table. Episode of severe chest and back pain with uncontrolled hypertension for which Cardene and Esmolol dripps started. CE noted postive. CT Chest/Abdomen/Pelvis evaluated and noted. 11/10/2015 Cardiology with findingsof NST KHANG. Underwent LHC for further evaluation with findings of LM with no significant disease, patent mid-LAD stent, 30% distal LAD disease, Ramus with 70% stenosis, LCX with no disease, 40% proximal RCA st enosis. CT noted with no acute abnormalities. 11/11/2015 Placed on Vapotherm support ove r night for hypoxia. Nausea and vomiting over night for which NGT was placed with coffe grounds noted, continued PPI. 11/12/2015 No further chest pain or abdom inal pain, nausea resolved, weaned down to NC. CVS with final recommendations for management of infrarenal AAA after resolution of diverticulitis. Diet advanced to regular and able to tolerate 11/14/2015 ID with final recommendations for CIpro and Flagyl PO for total of 14 days. Pulmonary services with recommendations for home oxygen. No further events noted and cleared for discharge home by all services. Discharge condition: stable to home with home oxygen and rol ling walker Discharge therapy: Medications: as per home medication reconciliation sheet Diet: Diabetic diet Activity: regular as tolerated Follow up: Dr Plasencia in 2 weeks for co lonoscopy, PCP and Dr Hatfield in 2 weeks Extracted from:Title: Clinical Document Author: Ludivina Heredia NP Date: 11/06/15 History and Physical Patient: Frank Hardin MR: [id number] Date: 11/06/2015 CC: Abdominal pain HPI: 65-year-old male with history of sm oker, coronary artery disease, atrial fibrillation, hypertension and diabetes mellitus admitted with a history of dizziness, abdominal pain, loose stools. Patien t underwent a CT scan of the abdomen wit h the finding of 5.5 cm aortic abdominal aneurysm and diverticulitis. Patient was transferred to [facility] for higher level of care. REVIEW OF SYSTEMS: CONSTITUTIONAL: The patient denies fevers or chills. Denie s weight loss. CARDIAC: Patient denies chest pain or palpitations. PULMONARY: The patient denies cough or hemoptysis or shorth ness of breath GASTROINTESTINAL: The patient denies na usea, vomiting or diarrhea. + abdominal pain. GENITOURINARY: The patient denies hematuria or dysuria. NEUROLOGIC: Patient denies any acute fo ashwin symptoms of arm or leg weakness or numbness, slurred speech, aphasia or transient blindness. SKIN: denies rashes, lessions PAST MEDICAL HISTORY: hypertension, coronary artery disease wi th multiple coronary PCI/ND obesity, hyperlipidemia, obstructive sleep apnea, JOSH, chronic back pain, history of TIA earlier this year, noncompliance with medicat ions, tinnitus, hard of hearing, diabetes, atrial fibrillati on. PAST SURGICAL HISTORY: Tonsillectomy, laminectomy. PCI with a stent placement. SOCIAL HISTORY: Daily tabacco use. Denies any alcohol abuse or illicit drug use. ALLERGIES: Patient is allergic to statins, Robaxin. MEDICATIONS: As per home medication reconciliation sheet PHYSICAL EXAMINATION: GENERAL: The patient is an obese, male in no acute distress . NECK: Reveals palpable carotid pulses b ilaterally. There are no palpable neck masses or aneurysms. There is no appreciable Jugular venous distention. CARDIOVASCULAR: S1 S2 regular LUNGS: Sounds are clear and equal bilaterally. ABDOMEN: Obese but soff, without palpable masses or aneurys ms. EXTREMITIES: In the lower extremity, th ere is significant edema throughout both lower extremities. The feet are warm and pink and viable without any ischemic lesions. ASSESMENT: 1. Infrarenal Abdominal aortic aneurysm 5.5 cm 2. Acute diverticulitis 3. Uncontrolled HTN PLAN: Admit to CVICU for close monitoring, Jaylon medina for HTN control. General surgery consult for evaluation of diverticulitis. Cardiology and Critical care consults for medical management. Keep NPO for n ow. Will present case to CVS attending and give further jacob mmendations after. Extracted from:Title: Stroke Progress note 06/11/2015 [facility] Author: Flavio Vasquez MD Date: 06/11/15 Stroke Progress Note Subjective: Patient denies any new complains. No major overnight events. HPI: Mr is a 65 y/o gentleman accepted as a stroke transfer form [facility]. 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 He has been asymptomatic since then. This is the 1st time he has symptoms lik e these, he has no PMH of TIA strokes or seizures. Seen at OSH and transferred to [facility] for HLOC. CTA evaluated revealing IC atherosclerosis but no critical carotid or intracranial occlusion. Decided to h yousif this patient as a primary to have 24 observation on the stroke unit, to decide about transition to anti coagulation and address his IC atherosclerosis. Hospital Course: Has been stable since admission Medications: Scheduled Meds (10): 06/10/15 amLODIPine 10 mg PO Daily 06/10/15 aspirin 325 mg PO Daily 06/10/15 losartan 100 mg PO Daily 06/11/15 montelukast 10 mg PO QAM 06/10/15 nicotine 21 mg TOP Daily 06/11/15 non-formulary (Praluent (alirocumab) 75 mg/ml) 75 m g SUB-Q Q14D 06/10/15 remove patch 1 patch TOP Daily 06/11/15 rivaroxaban (Xarelto) 20 mg PO QPM 06/10/15 sodium chloride (Saline Flush 0.9%) 10 ml IVP Q12H 06/10/15 sotalol (sotalol AF 160 mg oral tablet) 160 mg PO B ID Unscheduled Meds: None PRN Meds (9): 06/09/15 Dextrose 50% in Water IV (Dextrose 50% Syringe) 25 gm IVP PRN 06/09/15 Dextrose 50% in Water IV (Dextrose 50% Syringe) 12. 5 gm IVP PRN 06/09/15 Dextrose 50% in Water IV (Dextrose 50% Syringe) 6.2 5 gm IVP PRN 06/09/15 Insulin regular (insulin regula r 100 units/mL human recombinant) 3 unit SUB-Q PRN 06/09/15 Insulin regular (insulin regula r 100 units/mL human recombinant) 5 unit SUB-Q PRN 06/09/15 Insulin regular (insulin regula r 100 units/mL human recombinant) 7 unit SUB-Q PRN 06/09/15 enalapril 0.625 mg IVP Q6H 06/09/15 labetalol 10 mg IVP Q10Min 06/09/15 sodium chloride (Saline Flush 0.9%) 10 ml IVP PRN Objective: Vitals: Vitals Tmp(F) Tmp(C) Ttype B P MAP Pulse RR SpO2 FIO2 ETCO2 06/11 07:22 97.2 36.22 oral 148/74 --- 68 16 96 --- --- 06/11 03:30 98.6 37.00 oral 156/80 --- 65 18 97 --- --- 06/10 23:15 97.2 36.22 oral 154/82 --- 70 18 95 --- --- 06/10 19:15 97.4 36.33 oral 141/80 --- 70 19 97 --- --- 06/10 17:03 97.8 36.56 oral 165/87 --- 78 20 98 --- --- 24 Hr Tmax: 98.6F (37.00c) at 06/11 03:3 0 24 Hr Tmin: 97.2F (36.22c) at 06/11 07:22 36 Hr Tmax: 98.8F (37.11c) at 06/10 06:3 3 36 Hr Tmin: 96.8F (36.00c) at 06/10 01:16 Vital Signs are the last 5 in the past 4 8 hours. Weights are the last 5 in 60 days, plus initial. Physical Exam: HEAD - Normocephalic and atraumatic LUNGS - Clear to auscultation, no rales or rhonchi CVS - Rate rhythm regular, no murmur, equal pulses bilateral ly ABDOMEN - Soft, non tender, with normal bowel sounds. No hep atosplenomegaly NEUROLOGY: AAO*3 Speech: fluent, comprehension intact, repetition and naming intact general maintenance helper: 2-12 intact Motor: Tone: Normal Power: 5/5 in all groups of muscles in all four limbs Reflexes: 2+ symmetrical bilaterally Plantar: Flexor Drift: absent Sensory: Intact light touch and pin prick sensation Intact vibration and position sense Cerebellar signs: Intact FNT, Rombergs negative Gait: normal Labs: 36hr Labs 06/11 1015 Glucose Lvl 202 H BUN 19 Creatinine Lvl 1.15 Sodium Lvl 139 Potassium Lvl 3.7 Chloride Lvl 105 CO2 26 AGAP 11.7 Calcium Lvl 9.3 eGFR 66 WBC 8.9 RBC 4.27 L Hgb 14.0 Hct 39.7 L MCV 92.9 MCH 32.7 H MCHC 35.2 RDW 13.2 Platelet 226 MPV 8.5 Segs 64.9 Monocytes 6.5 Lymphocytes 23.6 Eosinophils 4.0 Basophils 1.0 Segs-Bands # 5.8 Lymphocytes # 2.1 Monocytes # 0.6 Eosinophils # 0.4 Basophils # 0.1 06/11 0554 Glucose POC 131 H 06/11 0452 PT 15.0 H INR 1.15 PTT 30.2 06/10 2335 Glucose POC 147 H 06/10 1652 Glucose POC 111 H 06/10 1143 Glucose POC 198 H 06/10 0634 Glucose POC 138 H 06/10 0320 Glucose POC 186 H 06/10 0201 Creatinine Lvl 1.09 eGFR 71 Chol 90 Trig 173 H HDL 27 L LDL (Calculated) 28 VLDL 35 CHD Risk 3.33 L Sodium Lvl 143 Potassium Lvl 3.4 L Chloride Lvl 108 CO2 23 L AGAP 15.4 Glucose Lvl 196 H Creatinine Lvl 1.08 BUN 20 B/C Ratio 19 Total Protein 7.3 Albumin Lvl 3.4 L Globulin 3.9 A/G Ratio 0.9 Calcium Lvl 9.1 ALT 28 AST 18 Alk Phos 77 Bili Total 0.5 eGFR 72 Hgb A1C 6.9 H WBC 11.8 H RBC 4.27 L Hgb 13.4 L Hct 39.9 L MCV 93.4 MCH 31.4 H MCHC 33.7 RDW 13.7 Platelet 224 MPV 8.5 Segs 64.1 Monocytes 5.6 Lymphocytes 25.3 Eosinophils 4.3 H Basophils 0.7 Segs-Bands # 7.5 Lymphocytes # 3.0 Monocytes # 0.7 Eosinophils # 0.5 Basophils # 0.1 PT 15.2 H INR 1.17 PTT 32.7 UA Color Light Yellow UA Turbidity Clear UA Spec Grav 1.023 UA pH 6.5 UA Protein Negative UA Glucose 50 UA Ketones Negative UA Bili Negative UA Blood Negative UA Urobilinogen <=1.0 UA Nitrite Negative UA Leuk Est Negative UA WBC <1 UA Sq Epi None Seen 06/09 2252 U Amph Scr Negative U Lisa Scr Negative U Benzodia Scr Negative U Cannab Scr Negative U Cocaine Scr Negative U Opiate Scr Negative U Phencyc Scr Negative UDS Note See Note Stroke Work up : CTA/MRA: 1. No branch occlusion or focal stenosis is identified. 2. Atherosclerotic disease of the bilat eral common carotid arteries carotid bifurcations and intracranial internal carotid arteries as described above. Ulceration of the plaque of the left internal carotid bifurcation is a potential embolic source. 3. Penetrating atheromas in the aortic arch and proximal left internal carotid artery which could be a potential source for distal embolization (bowel, kidneys, extremities). MRI Brain w/o contrast: 1. There are at least 2 subcentimeter ac twenty-nine [place] infarcts in the left cerebellar hemisphere. No significant intracranial mass effect or recent hemorrhage. 2. Chronic microangiopathic changes in t he supratentorial white matter, deep huang nuclei and alejandra. Echo: Conclusions 1) Unable to perform saline study due to IV not working. 2) Left ventricular size is normal with low normal systolic function. There is mild LV concentric hypertrophy. Abnormal left ventr icular diastolic filling is observed, consistent with impaired LV r elaxation. LV ejection fraction is estimated at 50 - 55%. 3) Right ventricular size and global systolic function is no rmal. 4) Left atrial size is mildly dilated and right atrium size is normal. 5) Aortic valve is sclerotic with no significant stenosis. 6) Unable to estimate RVSP due to lack of an adequate TR jet . 7) Atherosclerotic plaque is present in the ascending aorta. 8) Aortic root is mildly dilated - measured at 3.8cm. 9) There is no pericardial effusion. 10) No prior study is available for comparison. LDL: 27 HbA1C: 6.9 Assessment: Mr is a 65 y/o gentleman accepted as a stroke transfer form [facility]. 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 He has been asymptomatic since then. CTA shows R. MANAGER STATISTICAL, w/o occlusion or focal stenosis; aortic atheroma in arch and proximal l eft IC. MRI DWI showed 2 acute/subacute punctate hyperintensities in L. cerebellum w/ ADC correlate. Asymptomatic even with physical rehab. Plan: L. Cerebellar Ischemic Stroke, acute v. subacute, unknown etiology (thomboembolic v. cardioembolic) - PE described L sided weakness and numb ess that lasted 35 minutes and went away - CTA shows R. MANAGER STATISTICAL, w/o occlusion or focal stenosis; aortic atheroma in arch and proximal left IC. - MRI DWI showed 2 acute/subacute puncta te hyperintensities in L. cerebellum w/ ADC correlate - TTE noted aortic atheroma; mild atrial dilation - no physical deficits remaining, even with physical therapy - will start patient on Xarelto 20 mg qd, especially g iven recent onset of Afib - aspirin 81 mg - pt takes praluent for LDL's prescribed by outside physician; LDL 27 here; held statins HTN - home meds of losartan, amlodipine Afib - on home sotalol for rate control DTM - held metformin; start SSI for now # Code Status: Full code # Disposition: Discharge home once results of echo come back Flavio Vasquez MD M[facility] PGY1, Neurology Pager: [phone] STROKE NEUROLOGY ATTENDING I have seen and examined the patient. Vince jay, I have discussed the case with and reviewed the resident's note and agree with the history, exam, assessment and plan. See note below for additi ons and/or exceptions and my findings. I have personally viewed the patient's radiographic studies and laboratory tests. Notable Labs: Troponins: negative Coags: normal LDL: 28 HgbA1c: 6.9 Imaging: Initial CTH/A: negative acute. No ICH. CTA with no flow-limiting stenoses. There is extra- and intracranial athero. Most severe in the left carotid bulb with an ulcerated plaque. MRI brain: small infarctions in the left cerebellum. TTE: normal EF. Assessment/Plan: [id number] Observation D ischarge. I spent 40 min preparing discharge paperwork and explaining results of studies, medications at discharge and plans for follow-up. Principal Diagnosis I63.442 Cerebral Infarction due to embolism of Left Cerebe llar artery Acuity: Acute Current suspected etiology: cardio-embolic (history of Afb ). Treatment/Plan: Antiplatelet (ASA) 81mg due to history of CAD/ND. Xarelto 20mg daily for stroke prevention, No Statin as LDL already well below goal). Home today. I10 Essential (primary) hypertension Treatment: Continue home oral BP meds. I48.0 Paroxysmal atrial fibrillation Treatment: Rate controlled, home sotal ol. Start Xalrelto and I discussed in detail the potential risks of anticoagulation including close monitoring of renal function; fall/trauma risks as well as re commendation to obtain a medic-alert bra celet to indicate the patient is anticoagulated. E11.65 Type 2 diabetes mellitus with hyperglycemia. Treatment: SSI, Goal HgbA1c already at goal < 7. Slick Sepulveda MD MS Vascular Neurology Traffic Investigator - [facility] Pager: [phone] Extracted from:Title: Neurology H&P Author: Mitch Rodriguez MD Date: 06/09/15 Stroke History and Physical Requesting Physician/Service: ER /OSH brady Chief Complaint:OSH trasfer for TIA "transitory L sided numb ness and weakness" History of Present Illness is a 65 y/o gentleman accepted as a stroke transfer form [facility]. 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 He has been asymptomatic since then. This is the 1st time he has symptoms lik e these, he has no PMH of TIA strokes or seizures. Seen at OSH and transferred to [facility] for HLOC. CTA evaluated revealing IC atherosclerosis but no critical carotid or intracranial occlusion. Decided to h yousif this patient as a primary to have 24 observation on the stroke unit, to decide about transition to anti coagulation and address his IC atherosclerosis. ACUTE STROKE BENCHMARKS: TIME PATIENT LAST SEEN NORMAL 11:30 AM CODE STROKE ACTIVATION (CARE4 COMPUTER TIME page time) n /a NEUROLOGY RESIDENT ARRIVAL AT THE BEDSIDE (CARE4 COMPUTER TIME) 2200 IV TPA BOLUS (TIME AND DOSE) n/a IV TPA INFUSION (TIME AND DOSE) n/a DELAYS IN THE CODE STROKE PROCESS n/a Review of Systems: 1. GEN: no fever, chills, weight loss, fatigue 2. EYES: no blurred vision, double vision 3. CARDIO: no chest pain, palpitations 4. PULM: no shortness of breath, + cough and allergies. 5. GI: no nausea, vomiting, diarrhea, no abdominal pain 6. : no frequency, dysuria, burning, hematuria, no urin rukhsana incontinence 7. NEURO: see HPI 8. SKIN: no rash or lesion 9. ENDOCRINE: No constipation, palpitation or diarrhea or fatigue 10. MUSCULOSKELETAL: No joint pain Past Medical History: Diabetes Heart attack Hyperlipidemia AF on rate control HTN Past Surgical History: Stent placement CAD Family Medical History: Father uncle and grandfather with ND Social History: The patient is , he with . 1 daugther. 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 No history of alcohol use, heavy tobacco use (smoking 1/pk day and dipping), [place] drug use[place] Medications: Home meds: Amlodapine 10 daily Motelukast 10 martin Metformin 1000 BID Losartan 100 mdaly Aspirin 81 daily Doxazoxin 2g daily Medications (9) Active Scheduled Meds (4): 06/10/15 heparin 5,000 unit SUB-Q Q12H 06/10/15 nicotine 21 mg TOP Daily 06/10/15 remove patch 1 patch TOP Daily 06/10/15 sodium chloride (Saline Flush 0.9%) 10 ml IVP Q12H Unscheduled Meds: None PRN Meds (3): 06/09/15 enalapril 0.625 mg IVP Q6H 06/09/15 labetalol 10 mg IVP Q10Min 06/09/15 sodium chloride (Saline Flush 0.9%) 10 ml IVP PRN One Time Meds (2): 06/09/15 (Completed) Sodium Chloride 0. 9% IV (NS (Bolus) IV) 500 mL IV ONCE 500 ml/hr 06/09/15 (Ordered) aspirin 325 mg PO ONCE Continuous Infusions: None Allergies: Physical Exam: Vital Signs: Vitals Tmp(F) Pulse BP RR SpO2 FIO2 06/09 21:47 ---- 62 163/70 14 98 --- 06/09 20:18 ---- 63 172/71 14 99 --- 06/09 19:18 ---- 61 169/79 17 100 --- 06/09 17:44 97.8 61 142/68 18 100 --- 24 Hr Tmax: 97.8F (36.56c) at 06/09 17:4 4 Vital Signs are the last 5 in the past 48 hours. GENERAL: Awake, alert HEENT: - Normocephalic and atraumatic LUNGS - Clear to auscultation bilaterally with no wheez es CV - S1S2 RRR, no m/r/g, equal pulses bilaterally. ABDOMEN - Soft, nontender, nondistended with normoactiv e BS NEUROLOGY: AAO*3 Speech: fluent, comprehension intact, repetition and na elda intact general maintenance helper: 2-12 intact Motor: - Tone: Normal - Power: 5/5 in all groups of muscles in all four limbs - Reflexes: 2+ symmetrical bilaterally - Plantar: Flexor - Drift: absent Sensory: - decreased pinprick on stoking and glove Cerebellar signs: Intact FNT, Rombergs negative Gait: normal NIH Stroke Scale (NIHSS) 0 1a. Level of Consciousness; 0-alert 1-drowsy 2-stupor 0 1b. LOC Questions month and age; 0-both 1-one 2-n either 0 1c. LOC Commands open/close eyes, cake icer/release non-paretic hand; 0-both 1-one 2-neither 0 2. Best Gaze; 0-nl 1-partial 2-forced gaze 0 3. Visual Rodriguez; 0-No visual loss. 1-Partial hemianopia 2-Complete 3-Bilateral 0 4. Facial Palsy; 0-none 1-minor 2-partial 3-comple te 0 5. Motor - R arm; 0-No drift 1-Dri ft 2-Some antigravity 3-No antigravity 4-No movement 0 6. Motor - R leg; 0-No drift 1-Dri ft 2-Some antigravity 3-No antigravity 4-No movement 0 7. Motor - L arm; 0-No drift 1-Dri ft 2-Some antigravity 3-No antigravity 4-No movement 0 8. Motor - L leg; 0-No drift 1-Dri ft 2-Some antigravity 3-No antigravity 4-No movement 0 9. Limb Ataxia; 0 absent 1 - 1limb 2 - 2 limbs 0 10. Sensory; 0-nl 1-partial loss 2-dense loss 0 11. Best Language; 0-nl 1-mild/mod 2-severe 3-m twenty-nine palms 0 12. Dysarthria; 0-nl 1-mild/mod 2-severe x-u ntestable 0 13. 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 SEsonal allergies Cardiovascular CAD Old ND (specific site: ie lateral, interior , etc) Coronary Stents HTN Infectious n/a GI n/a Renal n/a Hematology A: ic clots TB Determined ? Cancer n/a Trauma obgyn nurse tx Skin Integrity n/a Metabolic DM EKG: N/a, ordered Imaging: CT head 06/09 : No acute/ changes. CTA Head and Neck 06/09: IC atherosclerosis per my review. MRI brain: pending. 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 PE unremarkable, imaging with CTA showing IC athero sclerosis. Patient accepted as a stroke transfer to have observation on the stroke unit, decide about trasition to anticoagulation manage 2ry stroke prevention. Etiology: Likely TIA related to AF PLAN # TIA - ASA 325 now - May need anticoagulation, defered until tomorrow (with ECH O and EKG) - Allergic to statins he is on a newe r type of medication (Subcutaneous shot? will bring it tomorrow), ordered lipid panel and hepatic panel, adjust Lipitor accordingly - Sliding scale insulin for tight glu cose control ordered, sent A1c: d/c his home meds per now will need to adjust of A1c not controlled. - MRI of brain - 2D echo with bubble study (had a TTE on the past at [facility]) - PT/OT/ ST evaluation - DVT Prophylaxis: Heparin 5000 units sq q8h now - Code Status: Full code - Disposition: Likely home. Given stroke education, and counseling to stop heavy smokin g to him and . Update 2:47 AM Stat MRI ordered by ER not able to be pe rformed as patient has several stents and only 2 of them have info. Stents were placed on [facility] [phone] [facility] [phone], and [facility] [phone]. Release of information records were sent. If not available by this morning please call to follow. MRI changed to routine. By 2:20 patient still asymptomatic. Mitch Bansal MD Neurology resident/ PGY2 Pager [phone] STROKE NEUROLOGY ATTENDING I have seen and examined the patient. Vince jay, I have discussed the case with and reviewed the resident's note and agree with the history, exam, assessment and plan. See note below for additi ons and/or exceptions and my findings. I have personally viewed the patient's radiographic studies and laboratory tests. Patient was diagnosed with Afib 2-weeks ago in [place], only on aspirin as his risk was "too-low". Notable Exam findings: normal exam. Notable Labs: Troponins: negative Coags: normal LDL: 28 HgbA1c: 6.9 Imaging: Initial CTH/A: negative acute. No ICH. CTA with no flow-limiting stenoses. There is extra- and intracranial athero. Most severe in the left carotid bulb with an ulcerated plaque. MRI brain: pending TTE: pending EKG: sinus rhythm on our ECG. 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 Continue evaluation: Parenchymal imagin g (MRI brain) to evaluate extent of infarct, TTE to evaluate cardiac function and possible source of emboli, cardiac telemetry. Treatment/Plan: Antiplatelet (ASA) for stroke prevention, low-dose Statin as LDL already well below goal of <70), may need 30 day event monitor if no etiology elicited during admission (and Afib not confirmed). PT/OT/Speech therapy evaluations. I10 Essential (primary) hypertension Treatment: Continue home oral BP meds. BP goals: normalize; SBP goal: 110-140. I48.0 Paroxysmal atrial fibrillation Treatment: Rate controlled, restart ho me sotalol. he agreed with Oral and I discussed in detail the potential risks of anticoagulation including close monitoring of renal function; fall/trauma ri sks as well as recommendation to obtain a medic-alert bracelet to indicate the patient is anticoagulated. E11.65 Type 2 diabetes mellitus with hyperglycemia. Treatment: SSI, Goal HgbA1c already at goal < 7. E78.5 Hyperlipidemia, unspecified Treatment: Continue statin. Goal LDL is <70. Physical Therapy/Occupational Therapy Evaluation Disposition recommendation: pending Speech and Language Recommendations: pending DVT Prophylaxis Treatment: JMAIE flynn and SCDs. SQ Heparin. I discussed the philosophy of care with patient and available family, reviewed and updated on plan of care and prognosis. ======== CORE MEASURES: 1) Antithrombotics have been ordered an d given before the end of hospital day 2 and continued on discharge. 2) Statins have been ordered for LDL > 100 and will be fara nued on discharge. 3) Rehab assessment has been ordered 4) Stroke education: I have discussed wi th the patient and/or family in detail about 1. the signs and symptoms of stroke; 2. the importance of their early recognition and activation of EMS via 911; 3. s troke risk factors have been clearly oscar ntified and communicated to the patient; 4. The importance of taking prescribed medication to treat these risk factors for secondary stroke prevention; and 5. th e importance of regular follow- up appoi ntments to prevent stroke has also been emphasized. Slick Sepulveda MD MS Vascular Neurology Traffic Investigator - [facility] Pager: [phone] Addendum by Slick Sepulveda MD on 06/10/2015 09:47 No statin as LDL is 28 and he is allergic to this class of m eds. Plan of Care No Data Provided for This Section Social History Social History Date Source Social History TypeResponse 10/06/2016 [facility] Smoking Status Current some day smoker; Type: Cigarette s; Tobacco use per day: 5; Number of years: 54; Lives with someone who smokes; Cigarette Smoking Last 365 Days Yes; Reg Smoking Cessation Counseling Yes Social History TypeResponse 01/24/2016 [facility] [place] Smoking Status Current every day smoker; Type: Cigarett es; Tobacco use per day: 5; Number of years: 54; Lives with someone who smokes; Cigarette Smoking Last 365 Days Yes; Reg Smoking Cessation Counseling Yes Social History TypeResponse 01/24/2016 [place] Smoking Status Current every day smoker; Type: Cigarett es; Tobacco use per day: 5; Number of years: 54; Lives with someone who smokes; Cigarette Smoking Last 365 Days Yes; Reg Smoking Cessation Counseling Yes Family History No Data Provided for This Section Advance Directives No Data Provided for This Section Functional Status No Data Provided for This Section
[2019-09-26] MEDS ORDERED: NA CHLORIDE 0.9% 500 ML ONE (15:00)
[2019-09-26 15:14] LABS: Absolute Lymphocytes (CBC) 0.8 K/uL (0.7-4.9); Basophils % 0.4 % (0-1.3); Hematocrit 45.3 % (39.6-49.0); MPV 9.3 fL (7.6-11.3); RBC Red Blood Cell Count 4.77 M/uL (4.33-5.43)
[2019-09-26 15:21] LABS: Protime INR 3.05
[2019-09-26 15:35] LABS: Albumin 2.7 g/dL (3.4-5.0); Bilirubin Direct 0.5 mg/dL (0-0.2); Bilirubin Total 1.3 mg/dL (0.2-1.0); Protein, Total 7.5 g/dL (6.4-8.2)
[2019-09-26 15:38] LABS: Magnesium 2.2 mg/dL (1.8-2.4); NT PRO-BNP 4839 pg/mL (<125); Troponin (Emerg Dept Use Only) < 0.02 ng/mL (0.0-0.045)
--- NOTE | 2019-09-26 16:09 | RAD REPORT ---
EXAM DESCRIPTION: RAD - Chest Single View - 09/26/2019 3:29 pm CLINICAL HISTORY: FEVER COMPARISON: Portable May 2019 TECHNIQUE: AP portable chest image was obtained 09/26/2019 3:29 pm . FINDINGS: Lung volumes are reduced compared to the May study. This accentuates interstitial carrie billy. No dense consolidation. An early right base interstitial infiltrate not entirely excluded. No significant failure or volume overload. Heart size is upper normal. Vasculature within normal limi ts. No measurable pleural effusion and no pneumothorax. No acute bony abnormality seen. No acute aort ic findings suspected. IMPRESSION: No focal consolidation and no significant failure or volume overload. Right base interstitial pattern accentuated on this shallow inspiration film. Early right base infilt rate cannot be excluded.
[2019-09-26] MEDS ORDERED: POTASSIUM CL SA 10 MEQ TAB PO ONE (16:22)
--- NOTE | 2019-09-26 16:58 | ER ---
Nurse's Notes [facility] Name: Frank Shaw Age: 69 yrs Sex: Male : 1950 Arrival Date: 09/26/2019 Time: 13:59 Bed 5 Private MD: Diagnosis: Diarrhea, unspecified;Influenza due to other identified influenza virus Presentation: 09/25 14:12 Chief complaint: Patient states: Diarrhea, fever. and decreased appetite for 3 days. + ll1 "smokers cough". Coronavirus screen: Proceed with normal triage. Patient reports a cough. Patient denies shortness of breath or difficulty breathing. Patient denies measured and/or subjective temperature greater than 100.4F prior to today's visit. Patient denies travel on a cruise ship or to a country the [facility] currently lists as an affected area. Patient denies contact with known and/or suspected case of COVID-19. Ebola Screen: Patient denies travel to an Ebola-affected area in the 21 days before illness onset. Initial Sepsis Screen: Does the patient meet any 2 criteria? HR > 90 bpm. No. Patient's initial sepsis screen is negative. Does the patient have a suspected source of infection? Yes: Other: diarrhea. Risk Assessment: Do you want to hurt yourself or someone else? Patient reports no desire to harm self or others. Onset of symptoms was September 23, 2019. 14:12 Method Of Arrival: Wheelchair ll1 14:12 Acuity: AGUS 3 ll1 Historical: - Allergies: 14:14 Robaxin; ll1 14:14 statins; ll1 - PMHx: 14:14 Sleep Apnea; Renal Disease; Myocardial infarction; Hernia; CVA; COPD; Hypertension; ll1 Diabetes - NIDDM; CAD; Atrial Fib; CHF; - PSHx: 14:14 ANEURYSM REPAIR; BACK SX; ll1 - Immunization history:: Adult Immunizations up to date. - Social history:: Smoking status: Patient reports the use of cigarette tobacco products, smokes one-half pack cigarettes per day, Patient/guardian denies using street drugs. Screenin:30 Abuse screen: Denies threats or abuse. Denies injuries from another. Nutritional sv screening: No deficits noted. Tuberculosis screening: No symptoms or risk factors identified. Fall Risk None identified. Assessment: 14:30 General: Appears in no apparent distress. uncomfortable, well groomed, well developed, sv Behavior is calm, cooperative, appropriate for age, Reports fever for 2-3 days, feeling ill for 2-3 days. General: Reports decreased appetite. Pain: Denies pain. Neuro: Level of Consciousness is awake, alert, obeys commands, Oriented to person, place, time, situation, Moves all extremities. Full function Gait is steady, Speech is normal. Cardiovascular: Rhythm is atrial fibrillation. Respiratory: Respiratory effort is even, unlabored, Respiratory pattern is regular, symmetrical. GI: Reports diarrhea. GI: Abdomen is round. Derm: Skin is pink, warm \\T\\ dry. 17:51 Reassessment: Patient appears in no apparent distress at this time. Patient and/or sv family updated on plan of care and expected duration. Pain level reassessed. Patient is alert, oriented x 3, equal unlabored respirations, skin warm/dry/pink. Vital Signs: 14:12 BP 147 / 116; Pulse 105; Resp 20; Temp 99.6; Pulse Ox 97% ; Pain 0/10; ll1 14:48 BP 141 / 77; Pulse 101 MON; Resp 22; Pulse Ox 98% on R/A; sv 15:30 BP 121 / 76; Pulse 96; Resp 20; Pulse Ox 97% ; sv 16:30 BP 130 / 78; Pulse 99; Resp 16; Pulse Ox 98% ; sv 17:30 BP 127 / 80; Pulse 96; Resp 16; Pulse Ox 99% ; sv 14:48 A fib sv ED Course: 13:59 Patient arrived in ED. bp1 14:09 Sunday Gray NP is PHCP. pm1 14:09 Rene Larsen MD is Attending Physician. pm1 14:13 Triage completed. ll1 14:15 Arm band placed on Patient placed in an exam room, on a stretcher, on plate grinder, ll1 on pulse oximetry. 14:16 Tram Mcghee RN is Primary Nurse. em1 14:25 Patient has correct armband on for positive identification. Bed in low position. Call sv light in reach. Side rails up X 1. die maker apprentice on. Pulse ox on. NIBP on. Door closed. Head of bed elevated. 14:30 EKG done, by ED staff, reviewed by Sunday Gray NP. dh3 14:30 Inserted saline lock: 20 gauge in right antecubital area, using aseptic technique. sv Blood collected. Flushed right antecubital with 5 ml normal saline. 14:54 IV discontinued, intact, bleeding controlled, No redness/swelling at site. Pressure sv dressing applied, to the R AC, d/t infiltration. 14:58 Missed attempt(s): 20 gauge in left hand. Bleeding controlled, band aid applied, dh3 catheter tip intact. 15:15 Missed attempt(s): 22 gauge in left antecubital area. Bleeding controlled, band aid dh3 applied, catheter tip intact. 15:21 Inserted saline lock: 24 gauge in right hand, using aseptic technique. dh3 15:29 XRAY Chest (1 view) In Process Unspecified. EDMS 17:51 No provider procedures requiring assistance completed. IV discontinued, intact, sv bleeding controlled, No redness/swelling at site. Pressure dressing applied. Administered Medications: 15:25 Drug: NS 0.9% 500 ml Route: IV; Rate: bolus; Site: right hand; sv 17:00 Follow up: Response: No adverse reaction; IV Status: Completed infusion; IV Intake: sv 500ml 16:23 Drug: Potassium Chloride 40 mEq Route: PO; sv 17:57 Follow up: Response: No adverse reaction sv Intake: 17:00 IV: 500ml; Total: 500ml. sv Outcome: 16:57 Discharge ordered by . pm1 17:52 Discharged to home via wheelchair, to his car sv 17:52 Condition: stable 17:52 Condition: improved 17:52 Discharge instructions given to patient, Instructed on discharge instructions, follow up and referral plans. medication usage, Demonstrated understanding of instructions, follow-up care, medications, Prescriptions given X 1. 17:57 Patient left the ED. sv Signatures: Dispatcher [employer] EDMS Tram Mcghee RN RN sv Martinez, Eric em1 Sunday Gray, SUPERINTENDENT OF GENERATION SUPERINTENDENT OF GENERATION pm1 Kim Sofia 3 Sj Bob RN RN 1 Chelo Chong bp1
--- NOTE | 2019-09-26 16:58 | EDPHYS ---
Physician Documentation [facility] Name: Frank Shaw Age: 69 yrs Sex: Male : 1950 Arrival Date: 09/26/2019 Time: 13:59 Bed 5 Private MD: ED Physician Rene Larsen HPI: 09/25 14:35 This 69 yrs old Male presents to ER via Wheelchair with complaints of pm1 Decreased Appetite, Fever, Diarrhea. 14:35 The patient presents to the emergency department with diarrhea, 3 times daily for the pm1 past 3 days. Onset: The symptoms/episode began/occurred 3 day(s) ago. Possible causes: unknown. The symptoms are aggravated by food , The symptoms are alleviated by nothing. Associated signs and symptoms: Pertinent positives: diarrhea, fever, chronic smoker's cough, Pertinent negatives: abdominal pain, constipation, dysuria, nausea, vomiting. Severity of symptoms: in the emergency department the symptoms are unchanged Pain is currently a 0 / 10. The patient has not recently seen a physician. Patient takes care of his sick and presents to the ER for evaluation and treatment of diarrhea with fever for the past three days. Patient reports Tmax 101. Historical: - Allergies: 14:14 Robaxin; ll1 14:14 statins; ll1 - PMHx: 14:14 Sleep Apnea; Renal Disease; Myocardial infarction; Hernia; CVA; COPD; Hypertension; ll1 Diabetes - NIDDM; CAD; Atrial Fib; CHF; - PSHx: 14:14 ANEURYSM REPAIR; BACK SX; ll1 - Immunization history:: Adult Immunizations up to date. - Social history:: Smoking status: Patient reports the use of cigarette tobacco products, smokes one-half pack cigarettes per day, Patient/guardian denies using street drugs. ROS: 14:35 Eyes: Negative for injury, pain, redness, and discharge, ENT: Negative for injury, pm1 pain, and discharge, Neck: Negative for injury, pain, and swelling, Cardiovascular: Negative for chest pain, palpitations, and edema. 14:35 Back: Negative for injury and pain, : Negative for injury, bleeding, discharge, and swelling, MS/Extremity: Negative for injury and deformity, Skin: Negative for injury, rash, and discoloration, Neuro: Negative for headache, weakness, numbness, tingling, and seizure. 14:35 Constitutional: Positive for fever, Negative for poor PO intake. 14:35 Respiratory: Positive for cough, Negative for shortness of breath, sputum production, wheezing. 14:35 Abdomen/GI: Positive for diarrhea, Negative for abdominal pain, nausea, vomiting. Exam: 14:35 Constitutional: This is a well developed, well nourished patient who is awake, alert, pm1 and in no acute distress. Head/Face: Normocephalic, atraumatic. Neck: Trachea midline, no thyromegaly or masses palpated, and no cervical lymphadenopathy. Supple, full range of motion without nuchal rigidity, or vertebral point tenderness. No Meningismus. Chest/axilla: Normal chest wall appearance and motion. Nontender with no deformity. No lesions are appreciated. 14:35 Back: No spinal tenderness. No costovertebral tenderness. Full range of motion. Skin: Warm, dry with normal turgor. Normal color with no rashes, no lesions, and no evidence of cellulitis. MS/ Extremity: Pulses equal, no cyanosis. Neurovascular intact. Full, normal range of motion. 14:35 Cardiovascular: Exam negative for acute changes, Rate: tachycardic, Rhythm: regular, Pulses: no pulse deficits are appreciated, Edema: is not appreciated. 14:35 Respiratory: Exam negative for acute changes, respiratory distress, shortness of breath, wheezing. 14:35 Abdomen/GI: Exam negative for acute changes, Inspection: abdomen appears normal, Palpation: abdomen is soft and non-tender, in all quadrants, mass, is not appreciated, rebound tenderness, is not appreciated. 14:35 Neuro: Exam negative for acute changes, Orientation: is normal, Mentation: is normal, Motor: is normal. Vital Signs: 14:12 BP 147 / 116; Pulse 105; Resp 20; Temp 99.6; Pulse Ox 97% ; Pain 0/10; ll1 14:48 BP 141 / 77; Pulse 101 MON; Resp 22; Pulse Ox 98% on R/A; sv 15:30 BP 121 / 76; Pulse 96; Resp 20; Pulse Ox 97% ; sv 16:30 BP 130 / 78; Pulse 99; Resp 16; Pulse Ox 98% ; sv 17:30 BP 127 / 80; Pulse 96; Resp 16; Pulse Ox 99% ; sv 14:48 A fib sv MDM: 14:14 Patient medically screened. pm1 16:17 Data reviewed: vital signs. Data interpreted: Pulse oximetry: on room air is 97 %. pm1 Interpretation: normal. 16:17 ED course: Patient reports that since he has had his heart attack, he is always in pm1 atrial fibrillation. 16:57 Counseling: I had a detailed discussion with the patient and/or guardian regarding: the pm1 historical points, exam findings, and any diagnostic results supporting the discharge/admit diagnosis, lab results, radiology results, the need for outpatient follow up, to return to the emergency department if symptoms worsen or persist or if there are any questions or concerns that arise at home. 17:15 ED course: Patient without any changes in his respiratory status. Patient came to the pm1 ER primarily for evaluation and treatment of diarrhea and COVID testing. Due to chest xray results of "ear;y right base infiltrate cannot be excluded," and smoking history, will cover with azithromycin. 09/25 14:19 Order name: Basic Metabolic Panel; Complete Time: 15:35 pm1 09/25 14:19 Order name: CBC with Diff; Complete Time: 15:29 pm09/25 14:19 Order name: Hepatic Function; Complete Time: 15:35 pm1 09/25 14:19 Order name: Lipase; Complete Time: 15:35 pm1 09/25 14:19 Order name: COVID-19 pm09/25 14:34 Order name: Magnesium; Complete Time: 15:39 pm09/25 14:19 Order name: EKG; Complete Time: 14:20 pm09/25 14:34 Order name: NT PRO-BNP; Complete Time: 15:39 pm1 09/25 14:34 Order name: PT-INR; Complete Time: 15:29 pm1 09/25 14:34 Order name: Troponin (emerg Dept Use Only); Complete Time: 15:39 pm1 09/25 14:34 Order name: XRAY Chest (1 view); Complete Time: 16:14 pm1 09/25 16:14 Order name: Flu; Complete Time: 17:29 pm09/25 14:19 Order name: IV Saline Lock; Complete Time: 14:33 pm09/25 14:19 Order name: Labs collected and sent; Complete Time: 14:54 pm1 09/25 14:19 Order name: EKG - Nurse/Tech; Complete Time: 14:33 pm1 09/25 14:34 Order name: Cardiac monitoring; Complete Time: 14:54 pm1 09/25 14:34 Order name: O2 Per Protocol; Complete Time: 14:54 pm1 09/25 14:34 Order name: O2 Sat Monitoring; Complete Time: 14:54 pm1 Administered Medications: 15:25 Drug: NS 0.9% 500 ml Route: IV; Rate: bolus; Site: right hand; sv 17:00 Follow up: Response: No adverse reaction; IV Status: Completed infusion; IV Intake: sv 500ml 16:23 Drug: Potassium Chloride 40 mEq Route: PO; sv 17:57 Follow up: Response: No adverse reaction sv Disposition: 09/26/19 16:57 Discharged to Home. Impression: Diarrhea, unspecified, Influenza due to other identified influenza virus. - Condition is Stable. - Discharge Instructions: Food Choices to Help Relieve Diarrhea, Adult, Diarrhea, Adult, Influenza, Adult. - Prescriptions for Zithromax Z- Chris 250 mg Oral Tablet - take 1 tablet by ORAL route as directed for 5 days Day 1 - take two (2) tablets one time. Day 2, 3, 4 , 5 take one (1) tablet once daily.; 6 tablet. - Medication Reconciliation Form, Thank You Letter, Antibiotic Education, Prescription Opioid Use form. - Follow up: Emergency Department; When: As needed; Reason: Worsening of condition. Follow up: Private Physician; When: 2 - 3 days; Reason: Recheck today's complaints, Continuance of care, Re-evaluation by your physician. - Problem is new. - Symptoms have improved. Signatures: Dispatcher [employer] EDFL Tram Mcghee, RN RN sv Sunday Gray NP COTTON PICKING MACHINE OPERATOR pm1 Sj Bob RN RN ll1 Corrections: (The following items were deleted from the chart) 17:29 16:57 09/26/2019 16:57 Discharged to Home. Impression: Diarrhea, unspecified. Condition pm1 is Stable. Forms are Medication Reconciliation Form, Thank You Letter, Antibiotic Education, Prescription Opioid Use. Follow up: Emergency Department; When: As needed; Reason: Worsening of condition. Follow up: Private Physician; When: 2 - 3 days; Reason: Recheck today's complaints, Continuance of care, Re-evaluation by your physician. Problem is new. Symptoms have improved. pm1 17:57 17:29 09/26/2019 16:57 Discharged to Home. Impression: Diarrhea, unspecified; Influenza sv due to other identified influenza virus. Condition is Stable. Discharge Instructions: Food Choices to Help Relieve Diarrhea, Adult, Diarrhea, Adult. Prescriptions for Zithromax Z-Chris 250 mg Oral Tablet - take 1 tablet by ORAL route as directed for 5 days Day 1 - take two (2) tablets one time. Day 2, 3, 4 , 5 take one (1) tablet once daily.; 6 tablet. and Forms are Medication Reconciliation Form, Thank You Letter, Antibiotic Education, Prescription Opioid Use. Follow up: Emergency Department; When: As needed; Reason: Worsening of condition. Follow up: Private Physician; When: 2 - 3 days; Reason: Recheck today's complaints, Continuance of care, Re-evaluation by your physician. Problem is new. Symptoms have improved. pm1
[2019-09-26 18:09] VITALS: TEMP 99.6
[2019-09-26 18:13] LABS: Platelet Estimate ADEQ; Urine White Blood Cell Casts OK
[2019-09-26 18:14] LABS: Blood Morphology Comment NOT SEEN (NOT SEEN)
[2019-09-26 18:26] VITALS: BP 127/80; O2SAT 99
--- NOTE | 2019-09-27 08:54 | EKG ---
Test Date: 2019-09-26 Test Time: 14:30:36 Tobacco Checkout Clerk: AIMEE MEASUREMENT RESULTS: Intervals: Rate: 104 RI: QRSD: 104 QT: 306 QTc: 402 Sargents: P: RI: QRS: 91 T: 26 INTERPRETIVE STATEMENTS: Atrial fibrillation with rapid ventricular response with premature ventricular or aberrantly conducted complexes Rightward axis Nonspecific T wave abnormality, probably digitalis effect Abnormal ECG Compared to ECG 05/13/2019 16:45:35 Ventricular premature complex(es) now present Right-axis deviation now present T-wave abnormality now present Electronically Signed On 09-27-19 08:52:24 CDT by Ray Barton
== END 2019-09-26 17:57 | disposition home or self-care (01) ==
LOC: ER 13:56
DX: J10.1 Influenza due to other identified influenza virus with other respiratory manifestations (principal); R19.7 Diarrhea, unspecified; Z88.8 Allergy status to other drugs, medicaments and biological substances; Z20.828 Contact with and (suspected) exposure to other viral communicable diseases
CPT/HCPCS: 96361; 93005; 85025; 80048; 36415; 83735; 85610; 80076; 84484; 83690; 83880; 87804 ×2; 71045; 96360; 99285; U0002; J7040

== ENCOUNTER 2021-03-05 08:28 | Emergency (ER) | payer OTHER ==
[2021-03-05 08:52] LABS: Absolute Lymphocytes (CBC) 1.6 K/uL (0.7-4.9); Basophils % 0.9 % (0-1.3); Hematocrit 48.7 % (39.6-49.0); Lymphocytes % 13.4 % (15.3-44.8); MPV 8.4 fL (7.6-11.3); RBC Red Blood Cell Count 4.97 M/uL (4.33-5.43)
[2021-03-05 08:54] LABS: Protime INR 1.18
[2021-03-05 09:22] LABS: Urine Blood Trace-intact (Negative); Urine Glucose Negative (Negative); Urine Protein 2+ (Negative)
[2021-03-05 09:38] LABS: ALT/SGPT 24 U/L (12-78); AST/SGOT 16 U/L (15-37); Albumin 3.4 g/dL (3.4-5.0); Alkaline Phosphatase 99 U/L (45-117); BUN Blood Urea Nitrogen 37 mg/dL (7-18); Bicarbonate 29 mmol/L (21-32); Bilirubin Direct 0.2 mg/dL (0-0.2); Bilirubin Total 0.6 mg/dL (0.2-1.0); Glucose Level 161 mg/dL (74-106); Magnesium 2.5 mg/dL (1.8-2.4); NT PRO-BNP 3245 pg/mL (<125); Potassium 4.2 mmol/L (3.5-5.1); Protein, Total 7.7 g/dL (6.4-8.2); Sodium Level 142 mmol/L (136-145); Troponin (Emerg Dept Use Only) < 0.02 ng/mL (0.0-0.045)
--- NOTE | 2021-03-05 09:48 | RAD REPORT ---
EXAM DESCRIPTION: RAD - Chest Single View - 03/05/2021 9:36 am CLINICAL HISTORY: Chest pain;Blunt chest trauma COMPARISON: September 2019 TECHNIQUE: AP portable chest image was obtained 03/05/2021 9:36 am . FINDINGS: No focal lung parenchymal process. No pulmonary contusion. Prominent interstitial pattern matches comparison. Heart and vasculature are normal. No measurable pleural effusion and no pneumotho rax. No acute bony abnormality seen. No acute aortic findings suspected. IMPRESSION: No acute cardiopulmonary process. No significant interval changes.
[2021-03-05] MEDS ORDERED: NA CHLORIDE 0.9% 500 ML ONE (09:50)
[2021-03-05] MEDS ORDERED: TETANUS & DIPHTHERIA TOX,ADULT 0.5 ML VIAL ONE (09:50)
--- NOTE | 2021-03-05 10:34 | RAD REPORT ---
EXAM DESCRIPTION: CT - Head C Spine Cap Wo Con - 03/05/2021 9:51 am CLINICAL HISTORY: PAIN COMPARISON: No comparisons TECHNIQUE: Axial [address] head images were obtained. Axial [address] cervical spine images were obtain ed with sagittal and coronal reconstruction images reviewed. Axial 5 mm images of the chest, abdomen and pelvis were obtained. All CT scans are performed using dose optimization technique as appropriate and may include automated exposure control or mA/KV adjustment according to patient size. FINDINGS: No intracranial hemorrhage, mass or edema. Mild atrophy and chronic ischemic changes are p resent with ventricles in proportion to the volume loss. No midline shift or abnormal fluid collectio n. Mastoid air cells and paranasal sinuses are clear. No skull fracture. No facial bone fractures se en. Nasal bones are not fully within the field of view. Arterial calcifications are present. A 2.6 centimeter oval soft tissue mass is present in the fatty tissues overlying the left maxilla. Th ere are changes to the skin surface. Patient history indicates skin cancer removed from the left base . The mass may represent hematoma related to the biopsy. This will need evaluation and monitoring to determine if this is hematoma or a component of the skin cancer. Cervical bodies are normal in height and alignment. No fracture or acute bone finding.No significant disc space narrowing. Endplate spurring and facet joint hypertrophic degenerative changes are present . No significant central canal or foraminal stenoses identifiable.No prevertebral soft tissue thicken ing or paraspinal mass.Central canal detail is inherently limited on CT imaging. Bilateral dependent atelectasis changes are present. No pulmonary contusion or pneumothorax. Emphysem a changes are seen in each upper lung field. No mediastinal hematoma and the aorta and pulmonary ar teries are unremarkable. No chest will mass or abnormal axillary finding. No displaced rib fracture o r other significant bony finding. CT abdomen and pelvis show no injury to solid abdominal viscera. Gallbladder and biliary tree are unr emarkable. No bowel injury or significant finding. No free air, free fluid or abnormal stranding. No hernia, mass or bulky lymphadenopathy. No urinary bladder abnormality. Bony degenerative changes are present. Slight endplate concavity L1-L3 present but probably chronic. Vascular assessment is limited in the absence of contrast. Patient has an endovascular stent graft in place from prior aneurysm treatment. IMPRESSION: Atrophy and chronic ischemic changes are present with no acute intracranial finding iden tifiable. A 2.5 centimeter oval mass is present in the subcutaneous fat over the left maxilla. This is believed to be the site of recent skin cancer removal. This mass is probably post biopsy hematoma rather than part of the skin cancer. This needs correlation with biopsy findings and procedure notes. Degenerative change of the cervical spine with no acute findings seen. No rib fracture, pulmonary contusion or acute CT chest finding. No significant CT Abdomen and Pelvis finding.
--- NOTE | 2021-03-05 10:45 | ER ---
Nurse's Notes [facility] Name: Frank Shaw Age: 71 yrs Sex: Male : 1950 Arrival Date: 03/05/2021 Time: 08:29 Bed 5 Private MD: Diagnosis: Fall on same level, unspecified;Contusion of right back wall of thorax;Contusion of right front wall of thorax;Abrasion of left hand;Abrasion of right hand;Chronic atrial fibrillation Presentation: 03/05 08:32 Chief complaint: EMS states: EMS reports pt. was working out in the road and tripped jt3 over a curb and fell on his right side. Denies LOC. Denies hitting his head. Pt. is on Xarelto 20mg which he has been out of for a week and a half. Alert and oriented x4 on arrival. No uncontrolled bleeding. Past medical hx of HTN, diabetes, Stroke, and A-fib. Care prior to arrival: None. Mechanism of Injury: Fall from standing position. Trauma event details: Injury occurred: March 05, 2021. Activity prior to arrival: None. 08:32 Acuity: AGUS 3 jt3 08:32 Method Of Arrival: EMS: [facility] jt3 11:50 Coronavirus screen: At this time, the client does not indicate any symptoms associated iw with coronavirus-19. Ebola Screen: No symptoms or risks identified at this time. Initial Sepsis Screen: Does the patient meet any 2 criteria? No. Patient's initial sepsis screen is negative. Does the patient have a suspected source of infection? No. Patient's initial sepsis screen is negative. Risk Assessment: Do you want to hurt yourself or someone else? Patient reports no desire to harm self or others. Onset of symptoms was March 05, 2021. Trauma Activation: Not Applicable Physician: ED Physician; Name: ; Notified At: ; Arrived At: Physician: General Surgeon; Name: ; Notified At: ; Arrived At: Physician: Radiology; Name: ; Notified At: ; Arrived At: Physician: Respiratory; Name: ; Notified At: ; Arrived At: Physician: Lab; Name: ; Notified At: ; Arrived At: Historical: - Allergies: 08:40 Robaxin; jt3 08:40 statins; jt3 - Home Meds: 08:40 Xarelto 20 mg Oral tab 1 tab once daily [Active]; aspirin 81 mg Oral chew 1 tab once jt3 daily [Active]; metoprolol tartrate 50 mg Oral tab 1 tab 2 times per day [Active]; - Immunization history: Last tetanus immunization: unknown. - Family history:: not pertinent. Screenin:32 Abuse screen: Denies threats or abuse. Denies injuries from another. Nutritional jt3 screening: No deficits noted. Tuberculosis screening: No symptoms or risk factors identified. 11:51 Fall Risk Fall in past 12 months (25 points). iw Primary Survey: 08:32 NO uncontrolled hemorrhage observed. A: The patient is alert. Airway: patent. jt3 Breathing/Chest: Respiratory pattern: regular, Respiratory effort: spontaneous. Circulation: Cardiac rhythm: atrial fibrillation with premature ventricular contractions. Disability Alert. Exposure/Environment: All clothing and personal items were removed. Forensic evidence collection is not deemed to be indicated at this time. Items placed in patient belonging bag. There is no evidence of uncontrolled external bleeding. No obvious injuries are noted at this time. A warming method has been applied: A warm blanket has been provided to the patient. 11:21 Reassessment Airway Airway Patent Breathing/Chest Respiratory pattern Regular jt3 Respiratory effort Spontaneous Circulation Heart rhythm Sinus rhythm Disability Alert. Secondary Survey: 08:38 HEENT: No deficits noted. Head No injury/deformity Face No injury/deformity Eyes: No jt3 injury or deformity noted. Ears: clear Nose: clear Throat: No injury or deformity noted. Gastrointestinal: No deficits noted. : No deficits noted. Musculoskeletal: Reports pain in abdomen. Pt. has lacerations to bilateral knuckles. Injury Description: Skin tears sustained to right hand and left hand. Assessment: 08:32 General: Appears uncomfortable, Behavior is restless. Pain: Complains of pain in jt3 abdomen Pain radiates to abdomen Pain currently is 7 out of 10 on a pain scale. Quality of pain is described as sharp, Pt. reports right flank/rib pain. Neuro: No deficits noted. Musculoskeletal: Tenderness present in abdomen Right ribs/flank. 11:21 Reassessment: Patient appears in no apparent distress at this time. jt3 Vital Signs: 08:32 BP 188 / 112; Pulse 93; Resp 17; Temp 98.1; Pulse Ox 98% on R/A; Weight 104.33 kg; jt3 Height 6 ft. 0 in. (182.88 cm); 10:23 BP 183 / 102; Pulse 83; Resp 17; Pulse Ox 98% on R/A; jt3 11:21 BP 181 / 91; Pulse 76; Resp 17; Pulse Ox 100% on R/A; jt3 08:32 Body Mass Index 31.19 (104.33 kg, 182.88 cm) jt3 Faith Coma Score: 08:32 Eye Response: spontaneous(4). Verbal Response: oriented(5). Motor Response: obeys jt3 commands(6). Total: 15. Trauma Score (Adult): 08:32 Eye Response: spontaneous(1); Verbal Response: oriented(1); Motor Response: obeys jt3 commands(2); Systolic BP: > 89 mm Hg(4); Respiratory Rate: 10 to 29 per min(4); Marcell Score: 15; Trauma Score: 12 ED Course: 08:29 Patient arrived in ED. ds1 08:31 Jama Echols MD is Attending Physician. dorina 08:32 Ganga Smith RN is Primary Nurse. jt3 08:32 Patient has correct armband on for positive identification. Placed in gown. Bed in low jt3 position. Call light in reach. Side rails up X2. 08:32 Patient maintains SpO2 saturation greater than 95% on room air. jt3 08:34 Triage completed. jt3 08:47 Initial lab(s) drawn, by me, sent to lab. Inserted saline lock: 20 gauge in left jl7 antecubital area, using aseptic technique. Blood collected. 09:21 INCENTIVE SPIROMETRY Sent. jt3 09:22 Dressings: Kerlix X 3; right hand, left hand and right arm Triple antibiotic cream jt3 placed on wounds after cleaning. Wounds wrapped in gauze. 09:36 XRAY Chest (1 view) In Process Unspecified. EDMS 09:51 Head C Spine Cap Wo Con In Process Unspecified. EDMS 11:50 No provider procedures requiring assistance completed. IV discontinued, intact, iw bleeding controlled, No redness/swelling at site. Pressure dressing applied. 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 Exp: jt3 09/15/2022. Lot #: [id number]. } Route: IM; Site: right deltoid; 09:04 Drug: Neosporin (ygkgeqea-tpzfehlevo-vflqomthl) Ointment 1 application Route: Topical; jt3 Site: right forearm; 11:21 Drug: [place] (HYDROcodone-acetaminophen) (7.5 mg-325 mg) 1 tabs Route: PO; jt3 Intake: 08:32 PO: 0ml; IV: 0ml; Total: 0ml. jt3 Output: 08:32 Urine: 150ml (Voided); Total: 150ml. jt3 Outcome: 10:44 Discharge ordered by . dorina 11:50 Discharged to home via wheelchair, with family. iw 11:50 Condition: good 11:50 Patient's length of stay was not longer than 2 hours. 11:51 Discharge instructions given to patient, Instructed on discharge instructions, follow iw up and referral plans. medication usage, Demonstrated understanding of instructions, follow-up care, medications, Prescriptions given X 1. 11:51 Patient left the ED. iw Signatures: Dispatcher [employer] EDDC Jama Echols MD MD cha Sanford, Demi ds1 Joana Solitario RN RN iw Alessia Khanna RN RN jl7 Ganga Smith RN RN jt3 Corrections: (The following items were deleted from the chart) 08:41 08:40 PMHx: Diabetes - NIDDM; jt3 jt3 08:41 08:40 PMHx: Hypertension; jt3 jt3 08:41 08:40 PMHx: Atrial Fib; jt3 jt3 08:41 08:40 PMHx: Sleep Apnea; jt3 jt3 08:41 08:40 PMHx: CAD; jt3 jt3 08:41 08:40 PMHx: Myocardial infarction; jt3 jt3 08:41 08:40 PMHx: CHF; jt3 jt3 08:41 08:40 PMHx: Hernia; jt3 jt3 08:41 08:40 PMHx: COPD; jt3 jt3 08:41 08:40 PMHx: CVA; jt3 jt3 08:41 08:40 PMHx: Renal Disease; jt3 jt3
--- NOTE | 2021-03-05 10:45 | EDPHYS ---
Physician Documentation [facility] Name: Frank Shaw Age: 71 yrs Sex: Male : 1950 Arrival Date: 03/05/2021 Time: 08:29 Bed 5 Private MD: ED Physician Jama Echols HPI: 03/05 08:45 This 71 yrs old Male presents to ER via EMS with complaints of Fall Injury. dorina 08:45 Details of fall: The patient fell from an upright position, while walking. Onset: The dorina symptoms/episode began/occurred just prior to arrival. Associated injuries: The patient sustained injury to the head, neck injury, injury to the chest, specifically the right lateral anterior chest and right lateral posterior chest, abrasion, contusion. Severity of symptoms: At their worst the symptoms were mild, in the emergency department the symptoms are unchanged. The patient has not experienced similar symptoms in the past. Historical: - Allergies: 08:40 Robaxin; jt3 08:40 statins; jt3 - Home Meds: 08:40 Xarelto 20 mg Oral tab 1 tab once daily [Active]; aspirin 81 mg Oral chew 1 tab once jt3 daily [Active]; metoprolol tartrate 50 mg Oral tab 1 tab 2 times per day [Active]; - Immunization history: Last tetanus immunization: unknown. - Family history:: not pertinent. ROS: 08:45 Constitutional: Negative for fever, chills, and weight loss, Eyes: Negative for injury, dorina pain, redness, and discharge, ENT: Negative for injury, pain, and discharge, Neck: Negative for injury, pain, and swelling, Cardiovascular: Negative for chest pain, palpitations, and edema, Abdomen/GI: Negative for abdominal pain, nausea, vomiting, diarrhea, and constipation, : Negative for injury, bleeding, discharge, and swelling, MS/Extremity: Negative for injury and deformity, Skin: Negative for injury, rash, and discoloration, Neuro: Negative for headache, weakness, numbness, tingling, and seizure, Psych: Negative for depression, anxiety, suicide ideation, homicidal ideation, and hallucinations, Allergy/Immunology: Negative for hives, rash, and allergies, Endocrine: Negative for neck swelling, polydipsia, polyuria, polyphagia, and marked weight changes. 08:45 Respiratory: Positive for shortness of breath, at rest. 08:45 Back: Positive for decreased range of motion, pain with movement, of the lumbar area. Exam: 08:45 Constitutional: This is a well developed, well nourished patient who is awake, alert, dorina and in no acute distress. Head/Face: Normocephalic, atraumatic. Eyes: Pupils equal round and reactive to light, extra-ocular motions intact. Lids and lashes normal. Conjunctiva and sclera are non-icteric and not injected. Cornea within normal limits. Periorbital areas with no swelling, redness, or edema. ENT: Nares patent. No nasal discharge, no septal abnormalities noted. Tympanic membranes are normal and external auditory canals are clear. Oropharynx with no redness, swelling, or masses, exudates, or evidence of obstruction, uvula midline. Mucous membranes moist. Neck: Trachea midline, no thyromegaly or masses palpated, and no cervical lymphadenopathy. Supple, full range of motion without nuchal rigidity, or vertebral point tenderness. No Meningismus. Chest/axilla: Normal chest wall appearance and motion. Nontender with no deformity. No lesions are appreciated. Cardiovascular: Regular rate and rhythm with a normal S1 and S2. No gallops, murmurs, or rubs. Normal PMI, no JVD. No pulse deficits. Abdomen/GI: Soft, non-tender, with normal bowel sounds. No distension or tympany. No guarding or rebound. No evidence of tenderness throughout. Male : Normal genitalia with no discharge or lesions. Skin: Warm, dry with normal turgor. Normal color with no rashes, no lesions, and no evidence of cellulitis. Neuro: Awake and alert, GCS 15, oriented to person, place, time, and situation. Cranial nerves II-XII grossly intact. Motor strength 5/5 in all extremities. Sensory grossly intact. Cerebellar exam normal. Normal gait. Psych: Awake, alert, with orientation to person, place and time. Behavior, mood, and affect are within normal limits. 08:45 Respiratory: mild respiratory distress is noted, Respirations: normal, labored breathing, is not present, Breath sounds: decreased breath sounds, that are mild, are located in both bases. 08:45 Back: pain, that is mild, that is moderate, ROM is painful, normal spinal alignment noted, CVA tenderness, is absent. 08:45 Musculoskeletal/extremity: Circulation is intact in all extremities. Sensation intact. Compartment Syndrome exam of affected extremity: is normal. DVT Exam: no pain, no swelling, no tenderness, negative Homans' sign noted on exam, no appreciated bluish discoloration, no erythema, no increased warmth. 09:05 ECG was reviewed by the Attending Physician. [facility] Vital Signs: 08:32 BP 188 / 112; Pulse 93; Resp 17; Temp 98.1; Pulse Ox 98% on R/A; Weight 104.33 kg; jt3 Height 6 ft. 0 in. (182.88 cm); 10:23 BP 183 / 102; Pulse 83; Resp 17; Pulse Ox 98% on R/A; jt3 11:21 BP 181 / 91; Pulse 76; Resp 17; Pulse Ox 100% on R/A; jt3 08:32 Body Mass Index 31.19 (104.33 kg, 182.88 cm) jt3 [place] Coma Score: 08:32 Eye Response: spontaneous(4). Verbal Response: oriented(5). Motor Response: obeys jt3 commands(6). Total: 15. Trauma Score (Adult): 08:32 Eye Response: spontaneous(1); Verbal Response: oriented(1); Motor Response: obeys jt3 commands(2); Systolic BP: > 89 mm Hg(4); Respiratory Rate: 10 to 29 per min(4); [place] Score: 15; Trauma Score: 12 MDM: 08:31 Patient medically screened. [facility] 08:49 Differential diagnosis: abrasion, closed head injury, contusion, fracture, multiple dorina trauma, sprain, strain. Data reviewed: vital signs, nurses notes, EMS record, lab test result(s), EKG, radiologic studies, CT scan, plain films. Data interpreted: rivet sticker: rate is 93 beats/min, rhythm is regular, Pulse oximetry: on room air is 98 %. Test interpretation: by ED physician or midlevel provider: ECG, plain radiologic studies. Counseling: I had a detailed discussion with the patient and/or guardian regarding: the historical points, exam findings, and any diagnostic results supporting the discharge/admit diagnosis, lab results, radiology results. 03/05 08:40 Order name: Basic Metabolic Panel [facility] 03/05 08:40 Order name: CBC with Diff; Complete Time: 10:19 [facility] 03/05 08:40 Order name: LFT's; Complete Time: 10:19 [facility] 03/05 08:40 Order name: Magnesium; Complete Time: 10:19 [facility] 03/05 08:40 Order name: NT PRO-BNP; Complete Time: 10:19 [facility] 03/05 08:40 Order name: PT-INR; Complete Time: 10:19 [facility] 03/05 08:40 Order name: Troponin (emerg Dept Use Only); Complete Time: 10:19 [facility] 03/05 08:40 Order name: XRAY Chest (1 view); Complete Time: 10:19 [facility] 03/05 08:41 Order name: Basic Metabolic Panel; Complete Time: 10:19 EDMS 03/05 08:43 Order name: INCENTIVE SPIROMETRY [facility] 03/05 09:21 Order name: Urine Dipstick-Ancillary; Complete Time: 10:19 EDWA 03/05 09:46 Order name: Head C Spine Cap Wo Con; Complete Time: 10:42 EDWA 03/05 08:40 Order name: EKG; Complete Time: 08:41 [facility] 03/05 08:40 Order name: Cardiac monitoring; Complete Time: 08:45 [facility] 03/05 08:40 Order name: EKG - Nurse/Tech; Complete Time: 09:22 [facility] 03/05 08:40 Order name: IV Saline Lock; Complete Time: 08:45 [facility] 03/05 08:40 Order name: Labs collected and sent; Complete Time: 08:45 [facility] 03/05 08:40 Order name: O2 Per Protocol; Complete Time: 08:45 [facility] 03/05 08:40 Order name: O2 Sat Monitoring; Complete Time: 08:45 [facility] 03/05 08:40 Order name: Urine Dipstick-Ancillary (obtain specimen); Complete Time: 09:21 [facility] 03/05 08:40 Order name: Wound dressing; Complete Time: 09:21 [facility] EC:05 Rate is 71 beats/min. Rhythm is irregularly irregular. QRS [place] is Normal. MS interval dorina is normal. QRS interval is normal. QT interval is normal. No Q waves. T waves are Normal. No ST changes noted. Clinical impression: Atrial Fibrillation. Interpreted by me. Reviewed by me. Administered Medications: 09:03 Drug: NS 0.9% 500 ml Route: IV; Rate: bolus; Site: left antecubital; jt3 09:04 Drug: Tetanus-Diphtheria Toxoid Adult 0.5 ml {Training And Development Officer: [employer]. Exp: jt3 09/15/2022. Lot #: [id number]. } Route: IM; Site: right deltoid; 09:04 Drug: Neosporin (btbpksmp-aawwptshte-fhfltkzri) Ointment 1 application Route: Topical; jt3 Site: right forearm; 11:21 Drug: [place] (HYDROcodone-acetaminophen) (7.5 mg-325 mg) 1 tabs Route: PO; jt3 Disposition Summary: 03/05/21 10:44 Discharge Ordered Location: Home dorina Problem: new dorina Symptoms: have improved dorina Condition: Stable dorina Diagnosis - Fall on same level, unspecified dorina - Contusion of right back wall of thorax dorina - Contusion of right front wall of thorax dorina - Abrasion of left hand dorina - Abrasion of right hand dorina - Chronic atrial fibrillation dorina Followup: dorina - With: Private Physician - When: 2 - 3 days - Reason: Recheck today's complaints, Continuance of care, Re-evaluation by your physician Discharge Instructions: - Abrasion dorina - Atrial Fibrillation dorina - Chest Wall Pain dorina - How to Use an Incentive Spirometer dorina - Chest Wall Pain, [id number] dorina - Abrasion, Dhnk-ge-Rfbo dorina - Discharge Summary Sheet jt3 Forms: - Work release form jt3 - Medication Reconciliation Form dorina - Thank You Letter dorina - Antibiotic Education dorina - Prescription Opioid Use dorina Prescriptions: - Tylenol-Codeine #3 300 mg-30 mg Oral - take 1 tablet by ORAL route every 4-6 hours; 24 tablet; Refills: 0, Product dorina Selection Permitted Signatures: Dispatcher [employer] EDJama Chairez MD MD cha Tejchma, Jordan, RN RN jt3 Corrections: (The following items were deleted from the chart) 08:41 08:40 PMHx: Diabetes - NIDDM; jt3 jt3 08: 08:40 PMHx: Hypertension; jt3 jt3 08: 08:40 PMHx: Atrial Fib; jt3 jt3 08:41 08:40 PMHx: Sleep Apnea; jt3 jt3 08:41 08:40 PMHx: CAD; jt3 jt3 08:41 08:40 PMHx: Myocardial infarction; jt3 jt3 08:41 08:40 PMHx: CHF; jt3 jt3 08:41 08:40 PMHx: Hernia; jt3 jt3 08:41 08:40 PMHx: COPD; jt3 jt3 08:41 08:40 PMHx: CVA; jt3 jt3 08:41 08:40 PMHx: Renal Disease; jt3 jt3 09:46 08:44 Head C Spine CAP W Con+CT.RAD.BRZ ordered. EDMS EDMS
[2021-03-05 12:16] VITALS: TEMP 98.1
[2021-03-05] MEDS ORDERED: HYDROCODONE/APAP 7.5/325 MG TAB ONE (12:17)
[2021-03-05 12:18] VITALS: BP 181/91; O2SAT 100
--- NOTE | 2021-03-06 11:51 | EKG ---
Test Date: 2021-03-05 Test Time: 08:55:28 Flanging Machine Operator: GUS MEASUREMENT RESULTS: Intervals: Rate: 71 MT: QRSD: 114 QT: 404 QTc: 439 [place]: P: MT: QRS: 90 T: -42 INTERPRETIVE STATEMENTS: Atrial fibrillation Rightward axis Nonspecific T wave abnormality, probably digitalis effect Abnormal ECG Compared to ECG 09/26/2019 14:30:36 Ventricular premature complex(es) no longer present T-wave abnormality still present Electronically Signed On 03-06-21 11:46:32 CDT by Ray Barton
== END 2021-03-05 11:51 | disposition home or self-care (01) ==
LOC: ER 08:28
DX: S20.221A Contusion of right back wall of thorax, initial encounter (principal); S20.211A Contusion of right front wall of thorax, initial encounter; S60.512A Abrasion of left hand, initial encounter; S60.511A Abrasion of right hand, initial encounter; I48.20 Chronic atrial fibrillation, unspecified; W18.30XA Fall on same level, unspecified, initial encounter; Z23 Encounter for immunization; Z79.01 Long term (current) use of anticoagulants; Z79.82 Long term (current) use of aspirin; Z88.8 Allergy status to other drugs, medicaments and biological substances
CPT/HCPCS: 93005; 85025; 80048; 36415; 83735; 85610; 80076; 81003; 84484; 83880; 70450; 71250; 72125; 71045; 90471; 90714; 99284; J7040

== ENCOUNTER 2021-05-29 15:36 | Observation (INO) | payer OTHER ==
--- OUTSIDE RECORDS SUMMARY | 2021-05-29 15:39 | XMS REPORT | Continuity of Care Document ---
:1950 Author Organization [facility] t Address [address] [place] [address] Care Team Providers Name Role Phone ATUL Attending Clinician Unavailable Frederick SOTO Attending Clinician Payers Payer Name Policy Type Policy Number Effective Date Expiration Date S matthew [employer] MEDICARE [id number] 2020 ADVANTAGE 00:00:00 Problems This patient has no known problems. Allergies, Adverse Reactions, Alerts This patient has no known allergies or adverse reactions. Social History Social Habit Start Date Stop Date Quantity Comments Source Sex Assigned [birth year] [facility] 00:00:00 00:00:00 Smoking Status Start Date Stop Date Source Unknown if ever smoked [facility] Medications This patient has no known medications. Procedures This patient has no known procedures. Encounters Start End Encounter Admission Attending Care Care Encounter Source Date/Time Date/Time Type Type Clinicians Facility Department ID 2020-11-03 Outpatient [facility] [id number] CT 14:00:38 [facility] 2020-11-02 2020-11-02 Telephone Prakash Mack [id number] 00:00:00 00:00:00 [place] [id number] [facility] [id number] Results Test Description Test Time Test Comments Results Result Comments Source SARS-COV2/RT-PCR ([facility]) 2019-09-27 06:00:00 Test Item Value Reference Range Interpretation Comme nts SARS-COV2/RT-PCR (test code = [id number]) Not Detected Not Detected, N egative SARS-COV-2 PERFORMING LAB (test code = [facility] [id number]) Negative results do not preclude SARS-CoV-2 infection and should not be used as the sole basis for patient management decisions. Negative results must be combined with clinical observations, patient history, and epidemiological information. A false negative result may occur if a specimen is improperly collected, transported or handled.The limit of detection for this assay is 250 copies/mL.This SARS CoV-2 test is a rapid, real-time RT-PCR test intended for the qualitative detection of nucleic acid from SARS-CoV-2 in a nasopharyngeal swab specimen collected from individuals suspected of COVID-19 by their healthcare provider.This test has not been Food and Drug Administration (FDA) cleared or approved and has been authorized by FDA under an Emergency Use Authorization (EUA). This EUA will be effective until the declaration that circumstances exist justifying the authorization of the emergency use of in vitro diagnostic tests for detection and/or diagnosis of COVID-19 is terminated under Section 564(b)(2) of the Act or the EUA is revoked under Section 564(g) of the Act.Fact Sheet for Healthcare Pro viders:https://www.[employer]/Documents/Xpert%20Xpress%20SARS%20CoV-2/Fact%20Sh eets/3023802%27KTSW-SEP-5%20HEALTHCARE%20PROVIDERS%20FACT%20SHEET.pdfFact Sheet for Healthcare Patients:https://www.[employer]/Documents/Xpert%20Xpress%20SARS%20CoV-2/Fact%20Sheets/3023801%20SARS-COV -2%20PATIENT%20FACT%20SHEET.pdfPerforming Laboratory:[facility] [place] [address]
--- NOTE | 2021-05-29 17:13 | RAD REPORT ---
EXAM DESCRIPTION: CT - Head Brain Wo Cont - 05/29/2021 5:01 pm CLINICAL HISTORY: SYNCOPE Headache, drowsiness, syncope COMPARISON: Head Brain Wo Cont dated 11/05/2015; HEAD BRAIN W O CONTRAST dated 06/09/2015 TECHNIQUE: All CT scans are performed using dose optimization technique as appropriate and may inclu de automated exposure control or mA/KV adjustment according to patient size. FINDINGS: No intracranial hemorrhage, hydrocephalus or extra-axial fluid collection.Mild generalized brain atrophy is present with mild periventricular and deep white matter chronic microvascular ische yasir changes.No areas of brain edema or evidence of midline shift. The paranasal sinuses and mastoids are clear. The calvarium is intact. IMPRESSION: No acute intracranial abnormality.
--- NOTE | 2021-05-29 17:34 | RAD REPORT ---
EXAM DESCRIPTION: RAD - Chest Single View - 05/29/2021 5:27 pm CLINICAL HISTORY: syncope Chest pain. COMPARISON: Chest Single View dated 03/05/2021; Chest Single View dated 09/26/2019; Chest Single View dated 05/13/2019; Chest Single View dated 10/06/2016 FINDINGS: Portable technique limits examination quality. Mild interstitial prominence is present suggesting interstitial pulmonary edema. The heart is upper l imit of normal in size. No displaced fractures. IMPRESSION: Mild CHF.
--- NOTE | 2021-05-29 18:12 | ER ---
Nurse's Notes [facility] Name: Frank Shaw Age: 71 yrs Sex: Male : 1950 Arrival Date: 05/29/2021 Time: 15:50 Bed 25 Private MD: Diagnosis: Near syncope, weakness, anginal equivalent Presentation: 05/29 15:50 Chief complaint: Patient states: Patient was driving to his job, pulled over because he cb5 felt dizzy and had blurred vision. Coronavirus screen: Client denies travel out of the [place] in the last 14 days. Client indicates they have traveled out of the [place] in the last 14 days. Ebola Screen: Patient negative for fever greater than or equal to 101.5 degrees Fahrenheit, and additional compatible Ebola Virus Disease symptoms Patient denies exposure to infectious person. Initial Sepsis Screen: Does the patient have a suspected source of infection? No. Patient's initial sepsis screen is negative. Risk Assessment: Do you want to hurt yourself or someone else? Patient reports no desire to harm self or others. 15:50 Method Of Arrival: EMS: [facility] cb5 15:50 Acuity: AGUS 3 cb5 16:14 Initial Sepsis Screen: Does the patient meet any 2 criteria? HR > 90 bpm. No. Patient's cb5 initial sepsis screen is negative. Triage Assessment: 16:11 General: Appears in no apparent distress. comfortable, well groomed, well developed, cb5 Behavior is calm, cooperative, appropriate for age. Pain: Denies pain. - Social history:: Smoking status: unknown. Screenin:13 Abuse screen: Denies threats or abuse. Denies injuries from another. Nutritional cb5 screening: No deficits noted. Tuberculosis screening: No symptoms or risk factors identified. 16:14 Fall Risk None identified. cb5 Assessment: 16:11 General: Appears in no apparent distress. comfortable, well groomed. Pain: Denies pain. cb5 Neuro: No deficits noted. Level of Consciousness is awake, alert, obeys commands. Cardiovascular: No deficits noted. Reports lightheadedness, Heart tones S1 S2 Capillary refill < 3 seconds Rhythm is sinus rhythm Chest pain is denied. Respiratory: No deficits noted. GI: Patient currently denies. : Denies. EENT: No deficits noted. Musculoskeletal: No deficits noted. 16:54 Reassessment: Two nurses attempted P.I..V. placement. Pt is going to radiology for CT cb5 scan, will have third nurse attempted. P.I.V placement when pt returns back. 17:52 Reassessment: fourth nurse attempting P.I.V placement M.D aware. cb5 18:34 Reassessment: Dr. Arndt placed a 20g E.J in patients left side of neck. Pt tole well. cb5 Blood obtained and specimens sent to lab. 18:43 Reassessment: Patient states feeling better. cb5 19:43 Reassessment: Patient is alert, oriented x 3, equal unlabored respirations, skin bb warm/dry/pink. labs recollected. 21:14 Reassessment: pt appears to be sleeping, eyes closed, resp unlabored, report called to bb receiving RN for room 207. Vital Signs: 15:50 BP 147 / 96; Pulse 76; Resp 16; Temp 98.6; Pulse Ox 98% ; Pain 0/10; cb5 18:30 BP 129 / 73; Pulse 70; Resp 16; Temp 98.6; Pulse Ox 98% ; Pain 0/10; cb5 19:06 Weight 104.33 kg; Height 5 ft. 10 in. (177.80 cm); cb5 19:43 BP 131 / 77; Pulse 87; Resp 18 S; Temp 98(O); Pulse Ox 99% on R/A; bb 20:30 BP 136 / 81; Pulse 82; Resp 16 S; Pulse Ox 95% on R/A; bb 19:06 Body Mass Index 33.00 (104.33 kg, 177.80 cm) cb5 ED Course: 15:50 Patient arrived in ED. iw 16:00 Tabatha Duran, RN is Primary Nurse. cb5 16:10 Triage completed. cb5 16:11 Arm band placed on. cb5 16:13 Patient has correct armband on for positive identification. Allergy band placed. Call cb5 light in reach. Side rails up X 1. 16:13 No provider procedures requiring assistance completed. cb5 16:19 Breana Arndt MD is Attending Physician. sp3 17:00 Head Brain Wo Cont In Process Unspecified. EDMS 17:27 Stroke CXR 1 View In Process Unspecified. EDMS 18:03 Basic Metabolic Panel Sent. cb5 18:03 Protime (+inr) Sent. cb5 18:03 Ptt, Activated Sent. cb5 18:11 Alfred Jackson MD is Hospitalizing Provider. sp3 18:23 Troponin High Sensitivity Sent. cb5 18:35 Basic Metabolic Panel Sent. cb5 18:35 Protime (+inr) Sent. cb5 18:35 Ptt, Activated Sent. cb5 19:06 Report given to Debbie Couch. cb5 19:07 COVID-19 SARS RT PCR (Document "Date of Onset" if Symptomatic) Sent. cb5 19:20 Moises (patients daughter) [phone]. mw2 19:43 Lab(s) recollected, by me, sent to lab. bb 21:14 IV is patent, is intact. bb 21:15 Patient admitted, IV remains in place. bb Administered Medications: No medications were administered Outcome: 18:12 Decision to Hospitalize by Provider. sp3 21:15 Admitted to Tele accompanied by tech, via wheelchair, room 207, with chart, Report bb called to receiving RN 21:15 Condition: stable 21:15 Instructed on the need for admit. 21:36 Patient left the ED. bb Signatures: Dispatcher [employer] EDMS Iza Gil, RN RN Joana Lee, RN Prema Santana mw2 Breana Arndt MD MD sp3 Tabatha Duran, RN RN cb5
--- NOTE | 2021-05-29 18:13 | EDPHYS ---
Physician Documentation [facility] Name: Frank Shaw Age: 71 yrs Sex: Male : 1950 Arrival Date: 05/29/2021 Time: 15:50 Bed 25 Private MD: ED Physician Breana Arndt HPI: 05/29 16:37 This 71 yrs old Male presents to ER via EMS with complaints of Syncope. sp3 16:38 71-year-old male with a history of TIAs, CAD with history of [place] and 5 stents, sp3 hypertension, hyperlipidemia presents with chief complaint blurry vision, mild vertigo, and near syncope while driving to the point where he had to thread puller and activated EMS. Patient denies having headache, neck pain, trauma, chest pain, shortness of breath, URI symptoms, fever, known COVID-19 contacts, known sick contacts abdominal pain, nausea, vomiting, diarrhea, facial weakness, dysarthria, memory loss, rash, full syncope, or any other ROS at this time. Symptoms have somewhat resolved but patient still feels globally weak with malaise and subjective near syncope when attempting to stand. Patient sees Dr. Pablo here at [facility] and he also has a history of atrial fibrillation for which she is on Xarelto and is always in A. fib.. - Social history:: Smoking status: unknown. ROS: 16:42 Eyes: Negative for injury, pain, redness, and discharge, ENT: Negative for injury, sp3 pain, and discharge, Neck: Negative for injury, pain, and swelling, Respiratory: Negative for shortness of breath, cough, wheezing, and pleuritic chest pain, Abdomen/GI: Negative for abdominal pain, nausea, vomiting, diarrhea, and constipation, Back: Negative for injury and pain, MS/Extremity: Negative for injury and deformity, Skin: Negative for injury, rash, and discoloration. 16:48 All other systems are negative. sp3 Exam: 16:48 Constitutional: This is a well developed, well nourished patient who is awake, alert, sp3 and in no acute distress. Head/Face: Normocephalic, atraumatic. Eyes: Pupils equal round and reactive to light, extra-ocular motions intact. Lids and lashes normal. Conjunctiva and sclera are non-icteric and not injected. Cornea within normal limits. Periorbital areas with no swelling, redness, or edema. ENT: Nares patent. No nasal discharge, no septal abnormalities noted. External auditory canals are clear. Oropharynx with no redness, swelling, or masses, exudates, or evidence of obstruction, uvula midline. Mucous membranes moist. Neck: Trachea midline, no thyromegaly or masses palpated, and no cervical lymphadenopathy. Supple, full range of motion without nuchal rigidity, or vertebral point tenderness. No Meningismus. Chest/axilla: Normal chest wall appearance and motion. Nontender with no deformity. No lesions are appreciated. Respiratory: Lungs have equal breath sounds bilaterally, clear to auscultation and percussion. No rales, rhonchi or wheezes noted. No increased work of breathing, no retractions or nasal flaring. Abdomen/GI: Soft, non-tender, with normal bowel sounds. No distension or tympany. No guarding or rebound. No evidence of tenderness throughout. Back: No spinal tenderness. No costovertebral tenderness. Full range of motion. Skin: Warm, dry with normal turgor. Normal color with no rashes, no lesions, and no evidence of cellulitis. MS/ Extremity: Pulses equal, no cyanosis. Neurovascular intact. Full, normal range of motion. Psych: Awake, alert, with orientation to person, place and time. Behavior, mood, and affect are within normal limits. 16:48 Cardiovascular: Atrial fibrillation with a normal heart rate. Normal cardiac exam otherwise.. 16:48 Neuro: Globally weak but no focal deficits including strength, sensory, speech, facial droop, any other neuro findings. Patient alert and oriented x3.. 16:51 ECG was reviewed by the Attending Physician. EKG demonstrates atrial fibrillation at 83 sp3 bpm with occasional PVC, nonspecific intraventricular delay, nonspecific ST/T changes without evidence of acute ischemia. Vital Signs: 15:50 BP 147 / 96; Pulse 76; Resp 16; Temp 98.6; Pulse Ox 98% ; Pain 0/10; cb5 18:30 BP 129 / 73; Pulse 70; Resp 16; Temp 98.6; Pulse Ox 98% ; Pain 0/10; cb5 19:06 Weight 104.33 kg; Height 5 ft. 10 in. (177.80 cm); cb5 19:43 BP 131 / 77; Pulse 87; Resp 18 S; Temp 98(O); Pulse Ox 99% on R/A; bb 20:30 BP 136 / 81; Pulse 82; Resp 16 S; Pulse Ox 95% on R/A; bb 19:06 Body Mass Index 33.00 (104.33 kg, 177.80 cm) cb5 MDM: 16:47 Patient medically screened. sp3 16:50 Data reviewed: vital signs, nurses notes. ED course: 71-year-old male with extensive sp3 cardiac neurological history presents with near syncope and altered mental status now resolved while driving. Patient will need observation, serial cardiac enzymes, possible MRI, possible neurological consult. Will defer to inpatient team for full work-up per their assessment. Currently patient is stable and not having an acute CVA or acute STEMI/ACS unstable angina scenario. Will assess labs, CT scan, EKG, first troponin and observe with the inpatient team.. 18:10 ED course: CT scan of the head and chest x-ray are normal. Laboratory values are still sp3 pending as patient was a hard stick for IV. Discussed with hospitalist and we will be admitting this patient under observation status. We will follow up on labs but initiate admission at this time. Patient continues to have no further symptoms at this time.. 05/29 16:37 Order name: Basic Metabolic Panel [facility] 05/29 16:37 Order name: CBC with Diff [facility] 05/29 16:37 Order name: Protime (+inr) [facility] 05/29 16:37 Order name: Ptt, Activated [facility] 05/29 16:37 Order name: Troponin High Sensitivity [facility] 05/29 18:38 Order name: COVID-19 SARS RT PCR (Document "Date of Onset" if Symptomatic) 05/29 16:37 Order name: Stroke CXR 1 View; Complete Time: 17:55 [facility] 05/29 16:37 Order name: EKG; Complete Time: 16:38 [facility] 05/29 16:37 Order name: Accucheck; Complete Time: 18:03 [facility] 05/29 16:37 Order name: Cardiac monitoring; Complete Time: 16:39 [facility] 05/29 16:37 Order name: EKG - Nurse/Tech; Complete Time: 18:03 [facility] 05/29 16:40 Order name: Head Brain Wo Cont; Complete Time: 17:55 EDMS 05/29 18:55 Order name: CONS Physician Consult EDWA 05/29 16:37 Order name: IV Saline Lock; Complete Time: 18:35 3 05/29 16:37 Order name: Labs collected and sent; Complete Time: 20:05 sp3 05/29 16:37 Order name: NPO; Complete Time: 18:03 3 05/29 16:37 Order name: O2 Per Protocol; Complete Time: 18:03 3 05/29 16:37 Order name: O2 Sat Monitoring; Complete Time: 18:03 sp3 05/29 16:37 Order name: Stroke Swallow Screen; Complete Time: 18:03 3 05/29 18:12 Order name: Labs - recollect needed: everything; Complete Time: 18:23 05/29 18:48 Order name: Labs - recollect needed: recollect green and blue top; Complete Time: 19:07 bd Administered Medications: No medications were administered Disposition Summary: 05/29/21 18:12 Hospitalization Ordered Hospitalization Status: Observation sp3 Provider: Alfred Jackson sp3 Location: Telemetry/MedSurg (observation) sp3 Condition: Stable sp3 Problem: an acute exacerbation sp3 Symptoms: are unchanged sp3 Bed/Room Type: Standard sp3 Room Assignment: [facility](05/29/21 20:56) Diagnosis - Near syncope, weakness, anginal equivalent sp3 Forms: - Medication Reconciliation Form sp3 - SBAR form sp3 Signatures: Dispatcher [employer] EDMS Ceci Macario Irene, RN RN iw Haylie Mckinney RN RN Breana Arndt MD MD sp3 Tabatha Duran RN RN cb5 Corrections: (The following items were deleted from the chart) 16:40 16:38 CT-STROKE BRAIN W/O CONTRAST+CT.RAD.BRZ ordered. EDWA EDMS 20:56 18:12 sp3 cg
[2021-05-29 18:28] LABS: Absolute Lymphocytes (CBC) 1.3 K/uL (0.7-4.9); Hematocrit 46.3 % (39.6-49.0); Lymphocytes % 9.4 % (15.3-44.8); MPV 7.6 fL (7.6-11.3); RBC Red Blood Cell Count 4.75 M/uL (4.33-5.43)
[2021-05-29 20:02] LABS: Protime INR 1.28
[2021-05-29] MEDS ORDERED: ACETAMINOPHEN 500 MG TAB PO PRN (21:31)
[2021-05-29] MEDS ORDERED: D50W 25 GM/50 ML SYRINGE IV PRN (21:31)
[2021-05-29] MEDS ORDERED: GLUCAGON 1 MG/VIAL IM PRN (21:31)
[2021-05-29] MEDS ORDERED: ALBUTEROL 2.5 MG/3 ML NEB SOL NEB PRN (21:31)
[2021-05-29] MEDS ORDERED: INSULIN -REGULAR HUMAN 50 UNIT/0.5 ML ML SQ SCH ×2 (21:31→21:56)
[2021-05-29] MEDS ORDERED: ONDANSETRON 4 MG/2 ML VIAL IV PRN (21:31)
[2021-05-29] MEDS ORDERED: BENZONATATE 100 MG CAP PO PRN (21:31)
[2021-05-29] MEDS ORDERED: IPRATROPIUM BROM 0.5MG/2.5ML NEB PRN (21:31)
[2021-05-29] MEDS ORDERED: RIVAROXABAN 20 MG TABLET PO SCH (21:31)
--- NOTE | 2021-05-29 21:50 | P.HP ---
Certification for Inpatient Patient admitted to: Observation With expected LOS: <2 Midnights Patient will require the following post-hospital care: None Practitioner: I am a practitioner with admitting privileges, knowledge of patient current condition, hospital course, and medical plan of care. Services: Services provided to patient in accordance with Admission requirements found in Title 42 Section 412.3 of the Code of Federal Regulations Patient History Date of Service: 05/29/21 Primary Care Provider: Kelley Reason for admission: near syncope History of Present Illness: Mr. Shaw is a 71 yo M with CAD (history of [place], cardiac stents x 5), TIA x 3, HTN, HLD, DM, chronic atrial fibrillation on xarelto, tobacco use disorder who presents with episode of near syncope. He was driving when he became lightheaded, had blurry vision, vertigo sensation so he pulled over and called EMS. He says the symptoms lasted only a few moments. Now he stacey weakness and fatigue. Denies nausea and vomiting. He says he had similar symptoms one year ago, but workup in the hospital at that time only revealed an ear infection. He says he has felt at his baseline before symptom onset today. He normally takes Xarelto but has been out of his medication for the past 3 days so he has been taking aspirin instead. He is in atrial fibrillation on the air sampling and monitoring. WBC 13.8. UA pending, BMP pending. CT Head IMPRESSION: No acute intracranial abnormality. CXR IMPRESSION: Mild CHF. Allergies methocarbamol [From Robaxin] Allergy (Verified 07/24/16 23:32) Unknown simvastatin Adverse Reaction (Verified 07/24/16 23:32) Nausea/Vomiting statins Allergy (Uncoded 10/06/16 06:00) Unknown Home Medications: Insulin Lispro [Humalog*] 2 unit SQ PRN PRN 03/19/16 Isosorbide Dinitrate 10 mg PO TID 03/19/16 Metoprolol Tartrate 50 mg PO BID 03/19/16 Nifedipine [Nifedipine ER] 60 mg PO BID 03/19/16 Nitroglycerin 0.4 mg SL PRN PRN 03/19/16 Rivaroxaban [Xarelto] 20 mg PO DAILY 03/19/16 Furosemide [Lasix*] 40 mg PO BID #60 tab 03/22/16 Hydralazine [Apresoline*] 25 mg PO BID #60 tab 03/22/16 Potassium Chloride [K-Dur] 10 meq PO TID #90 tab.er.prt 03/22/16 Doxazosin [Cardura] 2 mg PO BID 07/24/16 - Past Medical/Surgical History Diabetic: Yes -: [place] -: DM-NIDDM -: HTN -: AFib -: CHF -: Sleep Apnea -: CAD -: TIA -: HLD -: basal cell carcinoma -: Cardiac catheterization with stent placement x 5 -: Back surgery -: Tonsillectomy -: Adenoids -: Nose surgery -: 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 - Family History Father -: Heart disease Mother -: Heart disease, Hypertension, Diabetes Sister -: Hypertension, Diabetes - Social History Smoking Status: Heavy Tobacco smoker (>10 cigarettes/day) Alcohol use: No CD- Drugs: No Caffeine use: Yes Place of Residence: Home Review of Systems General: Weakness, Malaise Eyes: Vision Change ENT: Unremarkable Respiratory: Unremarkable Cardiovascular: Light Headedness Gastrointestinal: Unremarkable Genitourinary: Unremarkable Musculoskeletal: Unremarkable Integumentary: Unremarkable Neurological: Weakness Lymphatics: Unremarkable Physical Examination - Vital Signs Temperature: 98.6 F Blood Pressure: 129/73 Pulse: 70 Respirations: 16 - Physical Exam General: Alert, In no apparent distress HEENT: Atraumatic, PERRLA, Mucous membr. moist/pink, EOMI, Sclerae nonicteric Neck: Supple, 2+ carotid pulse no bruit, No LAD, Without JVD or thyroid abnormality Respiratory: Clear to auscultation bilaterally, Normal air movement Cardiovascular: No edema, Normal S1 S2, Irregular heart rate/rhythm Gastrointestinal: Normal bowel sounds, No tenderness Musculoskeletal: No tenderness Integumentary: No rashes Neurological: Normal speech, Normal strength at 5/5 x4 extr, Normal tone, Normal affect Lymphatics: No axilla or inguinal lymphadenopathy - Studies Laboratory Data (last 24 hrs) 05/29/21 19:38: PT 14.8 H, INR 1.28, APTT 31.2 05/29/21 18:18: WBC 13.80 H, Hgb 15.6, Hct 46.3, Plt Count 210 Assessment and Plan - Problems (Diagnosis) (1) CAD (coronary artery disease) Current Visit: Yes Status: Chronic Qualifiers: Coronary Disease-Associated Artery/Lesion type: [place] artery [place] vs. transplanted heart: [place] heart Associated angina: without angina Qualified Code(s): I25.10 - Atherosclerotic heart disease of [place] coronary artery without angina pectoris (2) TIA (transient ischemic attack) Current Visit: Yes Status: Resolved (3) Atrial fibrillation Current Visit: No Status: Chronic Qualifiers: Atrial fibrillation type: unspecified Qualified Code(s): I48.91 - Unspecified atrial fibrillation (4) Diabetes mellitus Onset Date: 05/22/15 Current Visit: No Status: Chronic Qualifiers: Diabetes mellitus type: type 2 Diabetes mellitus roasterman insulin use: with long-term use Diabetes mellitus complication status: without complication Qualified Code(s): E11.9 - Type 2 diabetes mellitus without complications; Z79.4 - retirement (current) use of insulin (5) Hypertension Current Visit: No Status: Chronic Qualifiers: Hypertension type: primary hypertension Qualified Code(s): I10 - Essential (primary) hypertension (6) HLD (hyperlipidemia) Current Visit: Yes Status: Chronic Qualifiers: Hyperlipidemia type: unspecified Qualified Code(s): E78.5 - Hyperlipidemia, unspecified (7) Near syncope Current Visit: Yes Status: Acute - Plan neurology consulted mri stroke pending continue aspirin, folic acid, xarelto cardiology consulted on telemetry carotid US , ECHO pending trend troponin UA pending sliding scale insulin and accuchecks, A1c pending reconcile and continue home medications breathing treatments as needed, smoking cessaiton cousneling CPAP at bedtime Discharge Plan: Home Plan to discharge in: 24 Hours - Advance Directives Does patient have a Living Will: No Does patient have a Durable POA for Healthcare: No - Code Status/Comfort Care Code Status Assessed: Yes (full code ) Critical Care: No Time Spent Managing Pts Care (In Minutes): 70
[2021-05-29 21:55] LABS: Potassium 3.4 mmol/L (3.5-5.1); Troponin High Sensitivity 16.8 pg/mL (<58.9)
[2021-05-29 23:36] VITALS: BMI 33.0
[2021-05-30] MEDS ORDERED: NITROGLYCERIN 0.4 MG/TAB SL PRN (00:15)
[2021-05-30 01:41] LABS: Urine Appearance CLEAR (Clear); Urine Bilirubin NEGATIVE (Negative); Urine Blood TRACE (Negative); Urine Color YELLOW (Yellow); Urine Glucose NEGATIVE (Negative); Urine Protein 1+ (Negative); Urine Specific Gravity <=1.005 (1.005-1.030); Urine Urobilinogen 0.2 mg/dL (0.2-1.0)
[2021-05-30 01:42] LABS: Urine Microscopic Reflex ORDER UMIC
[2021-05-30 02:00] LABS: Urine Bacteria <20 /HPF (NONE SEEN); Urine RBC NONE SEEN /HPF (NONE SEEN)
[2021-05-30 05:20] LABS: Absolute Lymphocytes (CBC) 1.8 K/uL (0.7-4.9); Hematocrit 43.4 % (39.6-49.0); MPV 7.8 fL (7.6-11.3); RBC Red Blood Cell Count 4.45 M/uL (4.33-5.43)
[2021-05-30 06:07] LABS: Bilirubin Total 0.7 mg/dL (0.2-1.0); Potassium 3.2 mmol/L (3.5-5.1)
[2021-05-30 06:08] LABS: Albumin 3.1 g/dL (3.4-5.0); Magnesium 2.3 mg/dL (1.8-2.4); Phosphorus 2.7 mg/dL (2.5-4.9); Protein, Total 7.1 g/dL (6.4-8.2); Thyroid Stimulating Hormone 1.54 uIU/mL (0.360-3.740)
[2021-05-30] MEDS: INSULIN -REGULAR HUMAN 50 UNIT/0.5 ML ML SQ SCH ×2 (07:30→11:30)
--- NOTE | 2021-05-30 08:17 | RAD REPORT ---
EXAM DESCRIPTION: - CP - 05/30/2021 7:11 am CLINICAL HISTORY: TIA COMPARISON: No comparisons TECHNIQUE: Real-time sonographic evaluation of bilateral carotid and vertebral systems was performed . Odell scale and Doppler interrogation were performed with waveform tracing bilaterally. FINDINGS: Normal high resistance waveforms are noted in both external carotid arteries. The common c arotid arteries and internal carotid arteries show normal low resistance waveforms. Mild calcified and noncalcified plaquing changes are present in the right carotid bulb and proximal r ight external carotid artery. Calcified and noncalcified plaquing changes are present as well in the left common carotid artery, left bulb and proximal left internal carotid artery. On visual inspection there is no hemodynamically significant degree of stenosis. ICA/CCA ratios and the peak systolic gonzalo ocity values also indicate that there is no degree of hemodynamically significant stenosis. Antegrade flow seen in both vertebral arteries. Velocity values and ratios were recorded and are retained in the patient's imaging records. IMPRESSION: Bilateral calcified and noncalcified plaquing changes are present without hemodynamicall y significant degrees of stenosis.
[2021-05-30] MEDS: ISOSORBIDE DINIT 5 MG TAB PO SCH ×2 (08:34→13:45)
[2021-05-30] MEDS ORDERED: FUROSEMIDE 40 MG TABLET PO SCH (09:00)
[2021-05-30] MEDS ORDERED: HYDRALAZINE HCL 25 MG TABLET PO SCH (09:00)
[2021-05-30] MEDS ORDERED: TERAZOSIN HCL 1 MG CAP PO SCH (09:00)
[2021-05-30] MEDS ORDERED: MONTELUKAST 10 MG TAB PO SCH (09:00)
[2021-05-30] MEDS ORDERED: NIFEDIPINE XL 60 MG TABLET PO SCH (09:00)
[2021-05-30] MEDS ORDERED: ASPIRIN EC 81 MG TAB PO SCH (09:00)
[2021-05-30] MEDS ORDERED: FOLIC ACID 1 MG TABLET PO SCH (09:00)
[2021-05-30] MEDS ORDERED: METOPROLOL TAR 50 MG TAB PO SCH (09:00)
--- NOTE | 2021-05-30 12:18 | RAD REPORT ---
EXAM DESCRIPTION: MRI - Brain Wo Cont - 05/30/2021 11:46 am CLINICAL HISTORY: TIA COMPARISON: MRA Head Wo Cont dated 05/30/2021; Head Brain Wo Cont dated 05/29/2021 TECHNIQUE: Sagittal T1-weighted images were obtained along with axial PD, heavily T2-weighted and T2 -FLAIR images. Axial DWI and ADC mapping sequences were also obtained along with coronal heavily T2-w eighted images. FINDINGS: No intracranial hemorrhage is present. No mass, edema or shift of midline structures ident ified. No cortical based infarction identified. There is no cortical edema or sulcal effacement. Diff usion-weighted imaging shows a punctate area of hyperintense signal in the posteromedial right fronta l lobe near the superior margin of the posterior limb internal capsule. A few additional very small f aint areas of hyperintense diffusion signal noted in the deep periventricular white matter of the rig ht frontal lobe. These appear to have corresponding hypointense signal on ADC mapping. Patient has underlying mild to moderate chronic ischemic pattern in the cerebral white matter. Atroph y changes are minimal. Ventricles are normal size. No brainstem, thalamus or basal ganglia signal abn ormalities. No extra-axial fluid collections. Odell-matter/white matter junction is preserved. Signal voids are seen as a normal finding in the major intracranial vessels. No globe or orbital content abnormality. Mastoid air cells and paranasal sinuses are clear. IMPRESSION: Punctate nonhemorrhagic foci of acute CVA are seen in the deep white matter of the right cerebral hemisphere. Patient has underlying moderate chronic ischemic pattern scattered in the cerebral white matter.
--- NOTE | 2021-05-30 12:21 | RAD REPORT ---
EXAM DESCRIPTION: MRI - MRA Head Wo Cont - 05/30/2021 11:34 am CLINICAL HISTORY: TIA, abnormal MRI brain COMPARISON: CT head May 29, MRI brain May 30 TECHNIQUE: Axial and coronal 3D [id number] image acquisition was performed. 3D rotational images were generated with source and reconstruction images reviewed. Horizontal and vertical axis rotation al views generated using MIP protocol. FINDINGS: The distal vertebral arteries are tortuous with mild tortuosity of the basilar artery. No focal stenosis, dissection or acute vertebrobasilar finding. The distal internal carotid arteries are also without measurable atherosclerotic change or dissection . A large posterior communicating artery is present on the right supplying the right posterior cerebr al artery. The bilateral [place] vessels are without significant disease. Bilateral MCA vasculature shows only minimal atherosclerotic change. Focal narrowing is seen in the distal aspect of the right A1 se gment anterior cerebral artery. No aneurysm or vascular malformation. No vasculitis or named branch occlusion. IMPRESSION: Minimal intracranial atherosclerotic changes are present as detailed. No vasculitis, nam ed branch occlusion or other significant finding identifiable.
--- NOTE | 2021-05-30 13:04 | EKG ---
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
[2021-05-30 13:05] VITALS: BP 117/79; TEMP 97.8
[2021-05-30] MEDS ORDERED: POTASSIUM 25 MEQ EFFERV TAB PO ONE (13:06)
--- NOTE | 2021-05-30 13:53 | P.DS ---
Admission Date: 05/29/21 Discharge Date: 05/30/21 Primary Care Provider: Kelley Disposition: ROUTINE DISCHARGE Discharge Condition: FAIR Reason for Admission: near syncope - Problems (1) Chronic atrial fibrillation Current Visit: Yes Status: Acute (2) Near syncope Current Visit: Yes Status: Acute (3) CAD (coronary artery disease) Current Visit: Yes Status: Chronic Qualifiers: Coronary Disease-Associated Artery/Lesion type: [place] artery [place] vs. 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 Shaw is a 71 yo M with CAD (history of [place], cardiac stents x 5), TIA x 3, HTN, HLD, DM, chronic atrial fibrillation on xarelto, tobacco use disorder who presents with episode of near syncope. He was driving when he became lightheaded, had blurry vision, vertigo sensation so he pulled over and called EMS. He says the symptoms lasted only a few moments. Now he stacey weakness and fatigue. Denies nausea and vomiting. He says he had similar symptoms one year ago, but workup in the hospital at that time only revealed an ear infection. He says he has felt at his baseline before the symptom onset. He normally takes Xarelto but has been out of his medication for the past 3 days so he has been taking aspirin instead. 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 WBC 13.8. Patient hospitalized for further management. Hospital Course: Patient placed on observation on the medical floor. Stroke/TIA work-up done with MRI of the brain is suggested punctate foci of acute CVA in the right cerebral cortex. Patient's neurologic symptoms have resolved. Echocardiogram unremarkable. MRA of the head and neck showing atherosclerotic disease no significant major vessel narrowing. Blood pressure currently controlled. Patient is discharged with a refill for Xarelto. Also prescribed aspirin and folic acid. Vital Signs/Physical Exam: Temp Pulse Resp BP Pulse Ox 97.8 F 86 18 117/79 98 05/30/21 12:00 05/30/21 12:00 05/30/21 12:00 05/30/21 12:00 05/30/21 12:00 General: Alert, In no apparent distress, Oriented x3 HEENT: Mucous membr. moist/pink Neck: Supple, JVD not distended Respiratory: Clear to auscultation bilaterally, Normal air movement Cardiovascular: No edema, Regular rate/rhythm, Normal S1 S2 Gastrointestinal: Soft and benign, Non-distended, No tenderness Musculoskeletal: No swelling Integumentary: No rashes Neurological: Normal speech, Normal strength at 5/5 x4 extr, Cranial nerves 3-12 intact Laboratory Data at Discharge: WBC 11.00 K/uL (4.3-10.9) H D 05/30/21 05:02 Hgb 14.3 g/dL (13.6-17.9) 05/30/21 05:02 Hct 43.4 % (39.6-49.0) 05/30/21 05:02 Plt Count 204 K/uL (152-406) 05/30/21 05:02 PT 14.8 SECONDS (9.5-12.5) H 05/29/21 19:38 INR 1.28 05/29/21 19:38 APTT 31.2 SECONDS (24.3-36.9) 05/29/21 19:38 Sodium 140 mmol/L (136-145) 05/30/21 05:02 Potassium 3.2 mmol/L (3.5-5.1) L 05/30/21 05:02 Potassium 3.2 mmol/L (3.5-5.1) L 05/30/21 05:02 BUN 21 mg/dL (7-18) H 05/30/21 05:02 Creatinine 1.50 mg/dL (0.55-1.3) H 05/30/21 05:02 Glucose 83 mg/dL (74-106) 05/30/21 05:02 Phosphorus 2.7 mg/dL (2.5-4.9) 05/30/21 05:02 Magnesium 2.3 mg/dL (1.8-2.4) 05/30/21 05:02 Total Bilirubin 0.7 mg/dL (0.2-1.0) 05/30/21 05:02 AST 15 U/L (15-37) 05/30/21 05:02 ALT 24 U/L (12-78) 05/30/21 05:02 Alkaline Phosphatase 94 U/L (45-117) 05/30/21 05:02 Triglycerides 114 mg/dL (<150) 05/30/21 05:02 Cholesterol 144 mg/dL (<200) 05/30/21 05:02 HDL Cholesterol 33 mg/dL (40-60) L 05/30/21 05:02 Cholesterol/HDL Ratio 4.36 05/30/21 05:02 Home Medications: Isosorbide Dinitrate 10 mg PO TID 03/19/16 Metoprolol Tartrate 50 mg PO BID 03/19/16 Nifedipine [Nifedipine ER] 60 mg PO BID 03/19/16 Nitroglycerin 0.4 mg SL PRN PRN 03/19/16 Hydralazine [Apresoline*] 25 mg PO BID #60 tab 03/22/16 Furosemide 40 mg PO BID 05/29/21 Montelukast [Singulair*] 10 mg PO DAILY 05/29/21 Terazosin HCl 2 mg PO BID 05/29/21 Aspirin [Aspirin EC 81 MG] 81 mg PO DAILY #30 tablet. 05/30/21 Benzonatate [Tessalon Perle*] 100 mg PO TID PRN #30 cap 05/30/21 Folic Acid 1 mg PO DAILY #30 tablet 05/30/21 Rivaroxaban [Xarelto] 20 mg PO DAILY #30 tablet 05/30/21 New Medications: Aspirin [Aspirin EC 81 MG] 81 mg PO DAILY #30 tablet. Folic Acid 1 mg PO DAILY #30 tablet Benzonatate [Tessalon Perle*] 100 mg PO TID PRN #30 cap PRN Reason: Cough Rivaroxaban [Xarelto] 20 mg PO DAILY #30 tablet Diet: [facility] Activity: Ad claribel Followup: NONE,NONE [Primary Care Provider] -
--- NOTE | 2021-05-30 14:18 | ECHO ---
HEIGHT: 5 ft 10 in WEIGHT: 230 lb 0 oz DATE OF STUDY: 05/30/[address]: Nilesh Mott 2-DIMENSIONAL: YES M.MODE: YES DOPPLER: YES COLOR FLOW: YES TDS: PORTABLE: DEFINITY: BUBBLE STUDY: DIAGNOSIS: ENLARGED CARDIAC SILHOUETTE CARDIAC HISTORY: CATHERIZATION: SURGERY: PROSTHETIC VALVE: PACEMAKER: MEASUREMENTS (cm) DIASTOLIC (NORMALS) SYSTOLIC (NORMALS) IVSd 1.0 (0.6-1.2) LA Diam 4.6 (1.9-4.0) LVEF 51% LVIDd 5.2 (3.5-5.7) LVIDs 3.9 (2.0-3.5) %FS 26% LVPWd 1.1 (0.6-1.2) Ao Diam 2.4 (2.0-3.7) 2 DIMENSIONAL ASSESSMENT: RIGHT ATRIUM: LEFT ATRIUM: RIGHT VENTRICLE: LEFT VENTRICLE: TRICUSPID VALVE: MITRAL VALVE: PULMONIC VALVE: AORTIC VALVE: PERICARDIAL EFFUSION: AORTIC ROOT: LEFT VENTRICULAR WALL MOTION: DOPPLER/COLOR FLOW: COMMENTS: NORMAL 2-DIMENSIONAL ECHOCARDIOGRAM WITH DOPPLER. NO VEGETATION. NO THOMBUS. TECHNOLOGIST: NEFTALI BALDWIN
[2021-05-30 14:52] VITALS: O2SAT 100
== END 2021-05-30 16:14 | disposition home or self-care (01) ==
LOC: ER 15:36 → ERHOLD 19:42 → 2ND 21:18
PROVIDERS: ADMIT Internal Medicine; ATTEND Internal Medicine
DX: R55 Syncope and collapse (principal); I48.20 Chronic atrial fibrillation, unspecified; I11.0 Hypertensive heart disease with heart failure; I50.9 Heart failure, unspecified; E11.9 Type 2 diabetes mellitus without complications; I25.10 Atherosclerotic heart disease of native coronary artery without angina pectoris; E78.5 Hyperlipidemia, unspecified; I25.2 Old myocardial infarction; G47.30 Sleep apnea, unspecified; R05.9 Cough, unspecified; F17.210 Nicotine dependence, cigarettes, uncomplicated; Z79.4 Long term (current) use of insulin; Z79.01 Long term (current) use of anticoagulants; Z88.8 Allergy status to other drugs, medicaments and biological substances; Z86.73 Personal history of transient ischemic attack (TIA), and cerebral infarction without residual deficits; Z95.5 Presence of coronary angioplasty implant and graft; Z85.828 Personal history of other malignant neoplasm of skin; Z20.822 Contact with and (suspected) exposure to COVID-19; Z82.49 Family history of ischemic heart disease and other diseases of the circulatory system; Z83.3 Family history of diabetes mellitus
CPT/HCPCS: 93005; 93306; 85025 ×2; 80048; 36415; 83735; 84100; 84132; 85610; 80061; 82947 ×3; 83605; 85730; 84443; 83036; 84484 ×3; 84439; 80053; 84145; 70450; 71045; 93880; 70551; 70544; 94660; U0003; 81003; 81015; 99285; G0378

== ENCOUNTER → 2021-12-12 | Emergency (ER) | payer OTHER ==
[~2021-12-12] MED LIST: ACETAMINOPHEN 500 MG TAB PO PRN; ASPIRIN EC 81 MG TAB PO SCH; ENOXAPARIN 40 MG/0.4 ML SQ SCH; METOPROLOL TAR 50 MG TAB PO SCH; MORPHINE 4 MG/ML SYR IV PRN
--- OUTSIDE RECORDS SUMMARY | 2021-12-12 08:50 | XMS REPORT | Continuity of Care Document ---
:1950 Author Organization [facility] t Address [address] [place] [address] Care Team Providers Name Role Phone Aakash Barrios MD Primary Care Physician AAKASH BARRIOS Attending Clinician Unavailable Alireza Gomez Attending Clinician Unavailable Ramon NEWMAN, Danay Attending Clinician Unavailable Payers Payer Name Policy Type Policy Number Effective Date Expiration Date S angela [employer] MEDICARE [id number] 2020 ADVANTAGE PPO 00:00:00 Problems This patient has no known problems. Allergies, Adverse Reactions, Alerts Allergy Allergy Status Severity Reaction(s) Onset Inactive Treating Comm ents Source Name Type Date Date Clinician Statins Allergy Active [facility] to 08-09 Health substanc 00:00: e 00 Methocar Allergy Active Other UT bamol to 05-13 reaction( Health substanc 00:00: s): e 00 Unknown Social History Social Habit Start Date Stop Date Quantity Comments Source Exposure to SARS-CoV-2 2021-11-09 2021-11-19 Not sure [facility] (event) 00:00:00 11:01:00 Sex Ass[birth year] At [birth year] [facility] 00:00:00 00:00:00 Smoking Status Start Date Stop Date Source Tobacco smoking consumption unknown [facility] Medications Ordered Filled Start Stop Current Ordering Indication Dosage Frequency Signature Comments Components Source Medication Medication Date Date Medication? Clinician (SIG) Name Name nitroglycer Yes [facility] in 11-19 Health (Nitrostat) 11:09: 0.4 MG SL 41 tablet ciprofloxac 2021-0 Yes Q.5D Take by [facility] in (Cipro) 7-18 mouth 2 Health 500 MG 11:09: (two) tablet 41 times a day. losartan 2021-0 Yes [id number] 100mg QD Take 1 U T (Cozaar) 5-09 tablet Health 100 MG 00:00: (100 mg tablet 00 total) by mouth 1 (one) time each day. losartan 2-0 Yes [id number] 100mg QD Take 1 U T (Cozaar) 5-09 tablet Health 100 MG 00:00: (100 mg tablet 00 total) by mouth 1 (one) time each day. losartan 2021-0 Yes [id number] 100mg QD Take 1 U T (Cozaar) 5-09 tablet Health 100 MG 00:00: (100 mg tablet 00 total) by mouth 1 (one) time each day. losartan 2-0 Yes [id number] 100mg QD Take 1 U T (Cozaar) 5-09 tablet Health 100 MG 00:00: (100 mg tablet 00 total) by mouth 1 (one) time each day. technetium 2021-0 Yes 4001 18mCi UT Tc-99m 4-21 Health sestamibi 15:58: (Cardiolite 59 ) radio-isoto pe injection 18-45 millicurie technetium 2-0 Yes 4001 18mCi UT Tc-99m 4-21 Health sestamibi 15:58: (Cardiolite 59 ) radio-isoto pe injection 18-45 millicurie technetium 2022-0 Yes 4001 18mCi UT Tc-99m 4-21 Health sestamibi 15:58: (Cardiolite 59 ) radio-isoto pe injection 18-45 millicurie technetium 2022-0 Yes 4001 18mCi UT Tc-99m 4-21 Health sestamibi 15:58: (Cardiolite 59 ) radio-isoto pe injection 18-45 millicurie technetium 2022-0 Yes 4001 18mCi UT Tc-99m 4-21 Health sestamibi 15:58: (Cardiolite 59 ) radio-isoto pe injection 18-45 millicurie technetium 2022-0 Yes 4001 18mCi UT Tc-99m 4-21 Health sestamibi 15:58: (Cardiolite 59 ) radio-isoto pe injection 18-45 millicurie technetium 2022-0 Yes 4001 8mCi UT Tc-99m 4-19 Health sestamibi 19:51: (Cardiolite 44 ) radio-isoto pe injection 8-18 millicurie technetium 2022-0 Yes 4001 8mCi UT Tc-99m 4-19 Health sestamibi 19:51: (Cardiolite 44 ) radio-isoto pe injection 8-18 millicurie technetium 2022-0 Yes 4001 8mCi UT Tc-99m 4-19 Health sestamibi 19:51: (Cardiolite 44 ) radio-isoto pe injection 8-18 millicurie technetium 2022-0 Yes 4001 8mCi UT Tc-99m 4-19 Health sestamibi 19:51: (Cardiolite 44 ) radio-isoto pe injection 8-18 millicurie technetium 2021-0 Yes 4001 8mCi UT Tc-99m 4-19 Health sestamibi 19:51: (Cardiolite 44 ) radio-isoto pe injection 8-18 millicurie technetium 2021-0 Yes 4001 8mCi UT Tc-99m 4-19 Health sestamibi 19:51: (Cardiolite 44 ) radio-isoto pe injection 8-18 millicurie nitroglycer 2021-0 Yes UT in 08-09 Health (Nitrostat) 16:25: 0.4 MG SL 32 tablet ciprofloxac 0 Yes Q.5D Take by UT in (Cipro) 08-09 mouth 2 Health 500 MG 16:25: (two) tablet 32 times a day. nitroglycer 0 Yes UT in 08-09 Health (Nitrostat) 16:25: 0.4 MG SL 32 tablet ciprofloxac 0 Yes Q.5D Take by UT in (Cipro) 08-09 mouth 2 Health 500 MG 16:25: (two) tablet 32 times a day. nitroglycer 0 Yes UT in 08-09 Health (Nitrostat) 16:25: 0.4 MG SL 32 tablet ciprofloxac 2022-0 Yes Q.5D Take by UT in (Cipro) 08-09 mouth 2 Health 500 MG 16:25: (two) tablet 32 times a day. nitroglycer 0 Yes UT in 08-09 Health (Nitrostat) 16:25: 0.4 MG SL 32 tablet ciprofloxac 2021-0 Yes Q.5D Take by UT in (Cipro) 08-09 mouth 2 Health 500 MG 16:25: (two) tablet 32 times a day. nitroglycer 0 Yes UT in 08-09 Health (Nitrostat) 16:25: 0.4 MG SL 32 tablet ciprofloxac 0 Yes Q.5D Take by UT in (Cipro) 08-09 mouth 2 Health 500 MG 16:25: (two) tablet 32 times a day. losartan Yes [id number] 50mg QD Take 1 UT (Cozaar) 50 08-09 tablet (50 He alth MG tablet 00:00: mg total) 00 by mouth 1 (one) time each day. furosemide 2022- No [id number] 40mg QD Take 1 UT (Lasix) 40 08-09 tablet (40 He alth MG tablet 00:00: 04:59 mg total) 00 :00 by mouth 1 (one) time each day. furosemide 2022- No [id number] 40mg QD Take 1 UT (Lasix) 40 08-09 tablet (40 He alth MG tablet 00:00: 04:59 mg total) 00 :00 by mouth 1 (one) time each day. furosemide 2022- No [id number] 40mg QD Take 1 UT (Lasix) 40 08-09-08 tablet (40 He alth MG tablet 00:00: 04:59 mg total) 00 :00 by mouth 1 (one) time each day. furosemide 2022- No [id number] 40mg QD Take 1 UT (Lasix) 40 08-09-08 tablet (40 He alth MG tablet 00:00: 04:59 mg total) 00 :00 by mouth 1 (one) time each day. furosemide 2022- No [id number] 40mg QD Take 1 UT (Lasix) 40 08-09-08 tablet (40 He alth MG tablet 00:00: 04:59 mg total) 00 :00 by mouth 1 (one) time each day. furosemide 2021-0 3- No [id number] 40mg QD Take 1 UT (Lasix) 40 08-09-08 tablet (40 He alth MG tablet 00:00: 04:59 mg total) 00 :00 by mouth 1 (one) time each day. losartan 2021-0 2021- No [id number] 50mg QD Take 1 U T (Cozaar) 50 08-09-09 tablet (50 H ealth MG tablet 00:00: 00:00 mg total) 00 :00 by mouth 1 (one) time each day. losartan 2021-0 2021- No [id number] 50mg QD Take 1 U T (Cozaar) 50 08-09-08 tablet (50 H ealth MG tablet 00:00: 04:59 mg total) 00 :00 by mouth 1 (one) time each day. tamsulosin 2021-0 Yes .4mg QD Take 0.4 UT (Flomax) 3-25 mg by Health 0.4 MG 24 00:00: mouth 1 hr capsule 00 (one) time each day. TAKE 1 CAPSULE BY MOUTH EVERY DAY FOR 30 DAYS tamsulosin 2-0 Yes .4mg QD Take 0.4 UT (Flomax) 3-25 mg by Health 0.4 MG 24 00:00: mouth 1 hr capsule 00 (one) time each day. TAKE 1 CAPSULE BY MOUTH EVERY DAY FOR 30 DAYS tamsulosin 2-0 Yes .4mg QD Take 0.4 UT (Flomax) 3-25 mg by Health 0.4 MG 24 00:00: mouth 1 hr capsule 00 (one) time each day. TAKE 1 CAPSULE BY MOUTH EVERY DAY FOR 30 DAYS tamsulosin 2-0 Yes .4mg QD Take 0.4 UT (Flomax) 3-25 mg by Health 0.4 MG 24 00:00: mouth 1 hr capsule 00 (one) time each day. TAKE 1 CAPSULE BY MOUTH EVERY DAY FOR 30 DAYS tamsulosin 2022-0 Yes .4mg QD Take 0.4 UT (Flomax) 3-25 mg by Health 0.4 MG 24 00:00: mouth 1 hr capsule 00 (one) time each day. TAKE 1 CAPSULE BY MOUTH EVERY DAY FOR 30 DAYS tamsulosin 2022-0 Yes .4mg QD Take 0.4 UT (Flomax) 3-25 mg by Health 0.4 MG 24 00:00: mouth 1 hr capsule 00 (one) time each day. TAKE 1 CAPSULE BY MOUTH EVERY DAY FOR 30 DAYS metoprolol 2022-0 Yes 50mg Q.5D Take 50 mg U T tartrate 3-06 by mouth 2 Healt h (Lopressor) 00:00: (two) 50 MG 00 times a tablet day. metoprolol 2022-0 Yes 50mg Q.5D Take 50 mg U T tartrate 3-06 by mouth 2 Healt h (Lopressor) 00:00: (two) 50 MG 00 times a tablet day. metoprolol 2022-0 Yes 50mg Q.5D Take 50 mg U T tartrate 3-06 by mouth 2 Healt h (Lopressor) 00:00: (two) 50 MG 00 times a tablet day. metoprolol 2022-0 Yes 50mg Q.5D Take 50 mg U T tartrate 3-06 by mouth 2 Healt h (Lopressor) 00:00: (two) 50 MG 00 times a tablet day. metoprolol 2022-0 Yes 50mg Q.5D Take 50 mg U T tartrate 3-06 by mouth 2 Healt h (Lopressor) 00:00: (two) 50 MG 00 times a tablet day. metoprolol 2022-0 Yes 50mg Q.5D Take 50 mg U T tartrate 3-06 by mouth 2 Healt h (Lopressor) 00:00: (two) 50 MG 00 times a tablet day. montelukast 2022-0 Yes 10mg Take 10 mg UT (Singulair) 1-27 by mouth 1 He alth 10 MG 00:00: (one) time tablet 00 each day in the morning. NIFEdipine 2022-0 Yes 60mg Take 60 mg U T XL 1-27 by mouth 1 Health (Procardia 00:00: (one) time XL) 60 MG 00 each day 24 hr in the tablet morning. Xarelto 20 2022-0 Yes 1 (one) UT MG tablet 1-27 time each Healt h 00:00: day in the 00 evening. isosorbide 2022-0 Yes 20mg Take 20 mg U T mononitrate 1-27 by mouth 1 He alth 20 MG 00:00: (one) time tablet 00 each day in the morning. montelukast 2022-0 Yes 10mg Take 10 mg UT (Singulair) 1-27 by mouth 1 He alth 10 MG 00:00: (one) time tablet 00 each day in the morning. NIFEdipine 2022-0 Yes 60mg Take 60 mg U T XL 1-27 by mouth 1 Health (Procardia 00:00: (one) time XL) 60 MG 00 each day 24 hr in the tablet morning. Xarelto 20 2022-0 Yes 1 (one) UT MG tablet 1-27 time each Healt h 00:00: day in the 00 evening. isosorbide 2022-0 Yes 20mg Take 20 mg U T mononitrate 1-27 by mouth 1 He alth 20 MG 00:00: (one) time tablet 00 each day in the morning. montelukast 2022-0 Yes 10mg Take 10 mg UT (Singulair) 1-27 by mouth 1 He alth 10 MG 00:00: (one) time tablet 00 each day in the morning. NIFEdipine 2022-0 Yes 60mg Take 60 mg U T XL 1-27 by mouth 1 Health (Procardia 00:00: (one) time XL) 60 MG 00 each day 24 hr in the tablet morning. Xarelto 20 2022-0 Yes 1 (one) UT MG tablet 1-27 time each Healt h 00:00: day in the 00 evening. isosorbide 2022-0 Yes 20mg Take 20 mg U T mononitrate 1-27 by mouth 1 He alth 20 MG 00:00: (one) time tablet 00 each day in the morning. montelukast 2022-0 Yes 10mg Take 10 mg UT (Singulair) 1-27 by mouth 1 He alth 10 MG 00:00: (one) time tablet 00 each day in the morning. NIFEdipine 2022-0 Yes 60mg Take 60 mg U T XL 1-27 by mouth 1 Health (Procardia 00:00: (one) time XL) 60 MG 00 each day 24 hr in the tablet morning. Xarelto 20 2022-0 Yes 1 (one) UT MG tablet 1-27 time each Healt h 00:00: day in the 00 evening. isosorbide 2022-0 Yes 20mg Take 20 mg U T mononitrate 1-27 by mouth 1 He alth 20 MG 00:00: (one) time tablet 00 each day in the morning. montelukast 2022-0 Yes 10mg Take 10 mg UT (Singulair) 1-27 by mouth 1 He alth 10 MG 00:00: (one) time tablet 00 each day in the morning. NIFEdipine 2022-0 Yes 60mg Take 60 mg U T XL 1-27 by mouth 1 Health (Procardia 00:00: (one) time XL) 60 MG 00 each day 24 hr in the tablet morning. Xarelto 20 2022-0 Yes 1 (one) UT MG tablet 1-27 time each Healt h 00:00: day in the 00 evening. isosorbide 2022-0 Yes 20mg Take 20 mg U T mononitrate 1-27 by mouth 1 He alth 20 MG 00:00: (one) time tablet 00 each day in the morning. montelukast 2022-0 Yes 10mg Take 10 mg UT (Singulair) 1-27 by mouth 1 He alth 10 MG 00:00: (one) time tablet 00 each day in the morning. NIFEdipine 2022-0 Yes 60mg Take 60 mg U T XL 1-27 by mouth 1 Health (Procardia 00:00: (one) time XL) 60 MG 00 each day 24 hr in the tablet morning. Xarelto 20 2022-0 Yes 1 (one) UT MG tablet 1-27 time each Healt h 00:00: day in the 00 evening. isosorbide 2022-0 Yes 20mg Take 20 mg U T mononitrate 1-27 by mouth 1 He alth 20 MG 00:00: (one) time tablet 00 each day in the morning. glimepiride 2022-0 Yes 1mg Take 1 mg U T (Amaryl) 1 1-22 by mouth 1 Hea lth MG tablet 00:00: (one) time 00 each day in the morning. glimepiride 2022-0 Yes 1mg Take 1 mg U T (Amaryl) 1 1-22 by mouth 1 Hea lth MG tablet 00:00: (one) time 00 each day in the morning. glimepiride 2022-0 Yes 1mg Take 1 mg U T (Amaryl) 1 1-22 by mouth 1 Hea lth MG tablet 00:00: (one) time 00 each day in the morning. glimepiride 2021-0 Yes 1mg Take 1 mg U T (Amaryl) 05-26 by mouth 1 Hea lth MG tablet 00:00: (one) time 00 each day in the morning. glimepiride 2021-0 Yes 1mg Take 1 mg U T (Amaryl) 05-26 by mouth 1 Hea lth MG tablet 00:00: (one) time 00 each day in the morning. glimepiride 2021-0 Yes 1mg Take 1 mg U T (Amaryl) 05-26 by mouth 1 Hea lth MG tablet 00:00: (one) time 00 each day in the morning. Vital Signs Vital Name Observation Time Observation Value Comments Source Systolic blood pressure 2021-11-19 16:10:00 131 mm[Hg] [facility] Diastolic blood pressure 2021-11-19 16:10:00 85 mm[Hg] [facility] Heart rate 2021-11-19 16:10:00 76 /min [facility] Respiratory rate 2021-11-19 16:10:00 18 /min [facility] ealt Body weight 2021-11-19 16:10:00 109.045 kg [facility] BMI 2021-11-19 16:10:00 33.53 kg/m2 [facility] Oxygen saturation in 2021-11-19 16:10:00 99 /min [facility] Arterial blood by Pulse oximetry Procedures Procedure Date / Time Performed Performing Clinician [facility] e ECG 12-LEAD 2021-11-19 16:14:00 Aakash Barrios [facility] Encounters Start End Encounter Admission Attending Care Care Encounter Source Date/Time Date/Time Type Type Clinicians Facility Department ID 2021-11-19 Outpatient DENIS [facility] [id number] [place] 11:02:09 AAKASH [id number] [facility] 2021-11-13 Outpatient DENIS [facility] [id number] [place] 16:43:[id number] [place] [address] 2021-11-12 Outpatient DENIS [facility] [id number] [place] 08:36:27 AAKASH [id number] [facility] 2021-10-29 Outpatient Dorothy [facility] [id number] Common 14:57:02 a, Alireza 84838 [facility] 2021-08-28 Outpatient DENIS [facility] [id number] [place] 14:45:47 AAKASH [id number] [facility] 2021-08-15 Outpatient Kattegummul [facility] [id number] Common 10:27:03 a, Alireza [facility] 2021-08-14 Outpatient Kattegummul [facility] [id number] Common 16:05:03 a, Alireza [facility] 2021-07-27 Outpatient Kattegummul [facility] [id number] Common 12:10:02 a, Alireza [facility] 2021-11-19 2021-11-19 Office ALFONSO Barrios [id number] [id number] [place] 11:00:00 11:57:[address] [id number] Health [id number] 2 2021-09-14 2021-09-14 Telephone Ramon, Janedith UTP 6410 1.2.84 0.114 [id number] [place] 00:00:00 00:00:[address] [id number] Health [id number] 2 2021-09-13 2021-09-13 Telephone RamonUmbertodeith UTP 6410 1.2.84 0.114 [id number] [place] 00:00:00 00:00:[address] [id number] Health [id number] 2 2021-09-10 2021-09-10 Telephone RamonUmbertoedith UTP 6410 1.2.84 0.114 [id number] [place] 00:00:00 00:00:[address] [id number] Health [id number] 2 2021-09-10 2021-09-10 Telephone Danay Navarro UTP 6410 1.2.84 0.114 [id number] [place] 00:00:00 00:00:00 Danay Navarro [id number] Health [id number] 2 2021-08-28 2021-08-28 Telephonic Denis UTP [id number] [place] 13:30:00 14:00:00 Encounter Aakash CHAIREZ [id number] Health [id number] 2 2021-07-27 2021-07-27 ambulatory [facility] [id number] Common 00:00:00 00:00:00 [facility] Results Test Description Test Time Test Comments Results Result Comments Source SARS-COV2/RT-PCR ([facility]) 2019-09-27 06:00:00 Test Item Value Reference Range Interpretation Comme nts SARS-COV2/RT-PCR (test code = 0455647) Not Detected Not Detected, N egative SARS-COV-2 PERFORMING LAB (test code = [facility] 6373576) Negative results do not preclude SARS-CoV-2 infection [...] of the Act.Fact Sheet for Healthcare Pro viders:https://www.cepheid.com/Documents/Xpert%20Xpress%20SARS%20CoV-2/Fact%20Sh eets/3023802%58JFGH-MHV-2%20HEALTHCARE%20PROVIDERS%20FACT%20SHEET.pdfFact Sheet for Healthcare Patients:https://www.[employer]/Documents/Xpert%20Xpress%20SARS%20CoV-2/Fact%20Sheets/3023801%20SARS-COV -2%20PATIENT%20FACT%20SHEET.pdfPerforming Laboratory:[facility] [place] [address]
[2021-12-12 09:25] LABS: Absolute Lymphocytes (CBC) 1.8 K/uL (0.7-4.9); Hematocrit 46.6 % (39.6-49.0); Lymphocytes % 15.6 % (15.3-44.8); MCV 96.5 fL (80-100); MPV 8.4 fL (7.6-11.3); RBC Red Blood Cell Count 4.83 M/uL (4.33-5.43)
[2021-12-12 09:30] LABS: Protime INR 1.31
[2021-12-12 09:42] LABS: Potassium 4.2 mmol/L (3.5-5.1)
--- NOTE | 2021-12-12 09:58 | RAD REPORT ---
EXAM DESCRIPTION: RAD - Chest Single View - 12/12/2021 9:29 am CLINICAL HISTORY: CHEST PAIN COMPARISON: Chest Single View dated 05/29/2021; Chest Single View dated 03/05/2021; Chest Single View dated 09/26/2019; Chest Single View dated 05/13/2019 FINDINGS: Lines: None. Lungs: No evidence of edema or pneumonia. Pleural: No significant pleural effusions or pneumothorax. Cardiac: Similar cardiomegaly. Bones: No acute fractures. Other: IMPRESSION: No acute cardiopulmonary disease.
[2021-12-12 10:03] LABS: SARS-CoV-2 Antigen Rapid Res Negative (Negative)
--- NOTE | 2021-12-12 10:08 | EDPHYS ---
Physician Documentation [facility] Name: Frank Shaw Age: 71 yrs Sex: Male : 1950 Arrival Date: 12/12/2021 Time: 08:55 Bed 24 Private MD: ED Physician Breana Arndt HPI: 12/12 09:05 This 71 yrs old Male presents to ER via EMS with complaints of chest pain. 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 He denies any other symptoms including headache, back pain, syncope, shortness of breath, abdominal pain, nausea, vomiting, diarrhea, left arm pain, jaw pain, rash, fever, known sick contacts, exertion, travel history, any other ROS at this time. She received aspirin in the ambulance ride, and he took nitro sublingual prior to arrival at home which has resolved this pain. Maximum his pain was rated at approximately 5/10 and now it is rated at a 1/10.. Historical: - Allergies: 09:01 Robaxin; tw2 09:01 statins; tw2 09:01 Methocarbamol; tw2 - Home Meds: 09:01 aspirin 81 mg Oral chew 1 tab once daily [Active]; metoprolol tartrate 50 mg Oral tab 1 tw2 tab 2 times per day [Active]; 09:14 nitroglycerin 0.4 mg SL subl 1 tab as needed, [Active]; losartan 50 mg oral tab 1 tab tw2 once daily [Active]; hydralazine 25 mg Oral tab 1 tab 4 times per day [Active]; furosemide 40 mg Oral tab 1 tab once daily [Active]; isosorbide mononitrate 20 mg Oral tab 1 tab 2 times per day [Active]; nifedipine 60 mg Oral tr24 1 tab once daily [Active]; Xarelto 20 mg oral tab 1 tab once daily [Active]; montelukast 10 mg oral tab 1 tab once daily [Active]; metoprolol tartrate 50 mg Oral tab 1 tab 2 times per day [Active]; - PMHx: 09:14 Myocardial infarction; Hernia; COPD; CVA; Hypertensive disorder; Atrial fibrillation; tw2 CHF; Diabetes mellitus; CAD; Renal disease; - Immunization history:: Adult Immunizations. - Social history:: Smoking status: . ROS: 09:07 Constitutional: Negative for fever, chills, and weight loss, Eyes: Negative for injury, sp3 pain, redness, and discharge, ENT: Negative for injury, pain, and discharge, Neck: Negative for injury, pain, and swelling, Respiratory: Negative for shortness of breath, cough, wheezing, and pleuritic chest pain, Abdomen/GI: Negative for abdominal pain, nausea, vomiting, diarrhea, and constipation, Back: Negative for injury and pain, MS/Extremity: Negative for injury and deformity, Skin: Negative for injury, rash, and discoloration, Neuro: Negative for headache, weakness, numbness, tingling, and seizure, Psych: Negative for depression, anxiety, suicide ideation, homicidal ideation, and hallucinations, Allergy/Immunology: Negative for hives, rash, and allergies, Endocrine: Negative for neck swelling, polydipsia, polyuria, polyphagia, and marked weight changes. 09:07 All other systems are negative. Exam: 09:09 ECG was reviewed by the Attending Physician. EKG demonstrates atrial fibrillation at sp3 approximately 100 bpm with normal QRS, downgoing T waves inferiorly, nonspecific diffuse ST/T changes NOT consistent with acute NE. Vital Signs: 09:00 BP 151 / 99; Pulse 85; Resp 17; Temp 98.1(TE); Pulse Ox 98% ; Weight 104.33 kg (R); tw2 Height 5 ft. 11 in. (180.34 cm); 09:58 BP 115 / 77; Pulse 84; Resp 17; Pulse Ox 98% on 1 lpm NC; tw2 11:00 BP 116 / 59; Pulse 84; Resp 17; Pulse Ox 100% on 1 lpm NC; tw2 12:00 BP 127 / 76; Pulse 81; Resp 16; Pulse Ox 100% on 1 lpm NC; tw2 13:19 BP 123 / 85; Pulse 77; Resp 17; Pulse Ox 99% on 1 lpm NC; tw2 09:00 Body Mass Index 32.08 (104.33 kg, 180.34 cm) tw2 MDM: 08:55 Patient medically screened. sp3 09:10 Data reviewed: vital signs, nurses notes. ED course: Cardiac work-up has been sp3 initiated. Differential diagnosis includes acute coronary syndrome, angina, no etiology, and to a much lower degree vascular etiology. I am not highly suspicious for PE or dissection or aneurysm at this time. Chest x-ray is pending along with labs. Patient is talking in no acute distress and is currently rating his pain at 1/10. Patient likely will need to be admitted for observation and rule out with serial troponins given his age and complex cardiac history.. 10:05 ED course: . ED course: Troponin is negative and creatinine is elevated at baseline. sp3 Will admit patient at this time for observation and cardiac rule out.. 12/12 08:56 Order name: Basic Metabolic Panel; Complete Time: 10:03 sp3 12/12 08:56 Order name: CBC with Diff; Complete Time: 10:03 sp3 12/12 08:56 Order name: NT PRO-BNP; Complete Time: 10:03 sp3 12/12 08:56 Order name: PT-INR; Complete Time: 10:03 sp3 12/12 08:56 Order name: Troponin HS; Complete Time: 10:03 sp3 12/12 09:37 Order name: SARS RAPID tw2 12/12 08:56 Order name: XRAY Chest (1 view); Complete Time: 10:03 sp3 12/12 08:56 Order name: EKG; Complete Time: 08:56 sp3 12/12 08:56 Order name: Cardiac monitoring; Complete Time: 08:57 sp3 12/12 08:56 Order name: EKG - Nurse/Tech; Complete Time: 08:57 sp3 12/12 08:56 Order name: IV Saline Lock; Complete Time: 09:17 sp3 12/12 08:56 Order name: Labs collected and sent; Complete Time: 09:17 sp3 12/12 08:56 Order name: O2 Per Protocol; Complete Time: 08:58 sp3 12/12 08:56 Order name: O2 Sat Monitoring; Complete Time: 08:58 sp3 Administered Medications: No medications were administered Disposition Summary: 12/12/21 10:07 Hospitalization Ordered Hospitalization Status: Observation sp3 Provider: Alfred Jackson sp3 Location: Telemetry/MedSurg (observation) sp3 Condition: Stable sp3 Problem: an acute exacerbation sp3 Symptoms: are unchanged sp3 Bed/Room Type: Standard sp3 Room Assignment: sp3 Diagnosis - Chest pain, unspecified sp3 Forms: - Medication Reconciliation Form sp3 - SBAR form sp3 Signatures: Dispatcher [employer] Myranda Calvin RN RN tw2 Breana Arndt MD MD sp3 Corrections: (The following items were deleted from the chart) 10:07 09:05 71-year-old male with a history of acute coronary syndrome, multiple acute MIs sp3 and 5 stents, atrial fibrillation currently on Xarelto, hypertension presents to the ED for approximately hours of chest pain on the right side that started while at rest. He denies any other symptoms including headache, back pain, syncope, shortness of breath, abdominal pain, nausea, vomiting, diarrhea, left arm pain, jaw pain, rash, fever, known sick contacts, exertion, travel history, any other ROS at this time. She received aspirin in the ambulance ride, and he took nitro sublingual prior to arrival at home which has resolved this pain. Maximum his pain was rated at approximately 5/10 and now it is rated at a 1/10.. sp3
--- NOTE | 2021-12-12 10:08 | ER ---
Nurse's Notes [facility] Name: Frank Shaw Age: 71 yrs Sex: Male : 1950 Arrival Date: 12/12/2021 Time: 08:55 Bed 24 Private MD: Diagnosis: Chest pain, unspecified Presentation: 12/12 08:55 Chief complaint: EMS states: pt c/o CHEST PAIN that started approximately 0730 this tw2 morning. pt did take 2 ASA and 0.4 SL Nitro PRIOR to our arrival. we gave 2 more aspirin. unsuccessful attempt at iv. pt also has a lot of home stressors with health and heart issues. 09:00 Coronavirus screen: At this time, the client does not indicate any symptoms associated tw2 with coronavirus-19. Ebola Screen: Patient denies travel to an Ebola-affected area in the 21 days before illness onset. Initial Sepsis Screen: Does the patient meet any 2 criteria? No. Patient's initial sepsis screen is negative. Does the patient have a suspected source of infection? No. Patient's initial sepsis screen is negative. Risk Assessment: Do you want to hurt yourself or someone else? Patient reports no desire to harm self or others. Note provider at bedside at this time. Onset of symptoms was December 12, 2021. 09:00 Method Of Arrival: EMS: [facility] tw2 09:00 Acuity: AGUS 3 tw2 09:04 Care prior to arrival: Medication(s) given: ASA, 81 mg, x 2, since pt took 2 PRIOR to tw2 arrival. Triage Assessment: 08:55 General: Appears in no apparent distress. obese, Behavior is calm, cooperative, tw2 appropriate for age. Pain: Complains of pain in chest. Neuro: Level of Consciousness is awake, alert, obeys commands, Oriented to person, place, time, situation. Cardiovascular: Reports chest pain, shortness of breath, since this morning at 0730. Respiratory: Airway is patent Respiratory effort is even, unlabored, Respiratory pattern is regular, symmetrical. GI: No signs and/or symptoms were reported involving the gastrointestinal system. Abdomen is round non-distended. Musculoskeletal: Range of motion: intact in all extremities. Historical: - Allergies: 09:01 Robaxin; tw2 09:01 statins; tw2 09:01 Methocarbamol; tw2 - Home Meds: 09:01 aspirin 81 mg Oral chew 1 tab once daily [Active]; metoprolol tartrate 50 mg Oral tab 1 tw2 tab 2 times per day [Active]; 09:14 nitroglycerin 0.4 mg SL subl 1 tab as needed, [Active]; losartan 50 mg oral tab 1 tab tw2 once daily [Active]; hydralazine 25 mg Oral tab 1 tab 4 times per day [Active]; furosemide 40 mg Oral tab 1 tab once daily [Active]; isosorbide mononitrate 20 mg Oral tab 1 tab 2 times per day [Active]; nifedipine 60 mg Oral tr24 1 tab once daily [Active]; Xarelto 20 mg oral tab 1 tab once daily [Active]; montelukast 10 mg oral tab 1 tab once daily [Active]; metoprolol tartrate 50 mg Oral tab 1 tab 2 times per day [Active]; - PMHx: 09:14 Myocardial infarction; Hernia; COPD; CVA; Hypertensive disorder; Atrial fibrillation; tw2 CHF; Diabetes mellitus; CAD; Renal disease; - Immunization history:: Adult Immunizations. - Social history:: Smoking status: . Screenin:07 Abuse screen: Denies threats or abuse. Nutritional screening: No deficits noted. tw2 Tuberculosis screening: No symptoms or risk factors identified. Fall Risk None identified. Assessment: 08:59 Reassessment: pt c/o SOB, pt at 100%RA, pt placed on 1L nc. will continue to monitor. tw2 09:06 Reassessment: see triage assessment. tw2 09:20 Reassessment: urinal provided to patient. ap3 09:58 Reassessment: Patient appears in no apparent distress at this time. No changes from tw2 previously documented assessment. Patient and/or family updated on plan of care and expected duration. Pain level reassessed. Patient is alert, oriented x 3, equal unlabored respirations, skin warm/dry/pink. 11:00 Reassessment: Patient appears in no apparent distress at this time. No changes from tw2 previously documented assessment. Patient and/or family updated on plan of care and expected duration. Pain level reassessed. Patient is alert, oriented x 3, equal unlabored respirations, skin warm/dry/pink. 12:00 Reassessment: Patient appears in no apparent distress at this time. No changes from tw2 previously documented assessment. Patient and/or family updated on plan of care and expected duration. Pain level reassessed. Patient is alert, oriented x 3, equal unlabored respirations, skin warm/dry/pink. 13:21 Reassessment: Patient appears in no apparent distress at this time. No changes from tw2 previously documented assessment. Patient and/or family updated on plan of care and expected duration. Pain level reassessed. Patient is alert, oriented x 3, equal unlabored respirations, skin warm/dry/pink. 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 hospital bed tw2 brought near room, pt states "i can get out of here. and just leave. i am tired of this bed and tired of being here i feel fine and i want to go home", pts spouse called at #[phone], pt spoke with his and told her he is fine and wants to go home. pt reports a sister in law is coming to get him at 230 today after she gets off work. pt signed AMA form. pt placed in w/c with belongings and moved to the judge.meby at 1355. dr. field notified. Vital Signs: 09:00 BP 151 / 99; Pulse 85; Resp 17; Temp 98.1(TE); Pulse Ox 98% ; Weight 104.33 kg (R); tw2 Height 5 ft. 11 in. (180.34 cm); 09:58 BP 115 / 77; Pulse 84; Resp 17; Pulse Ox 98% on 1 lpm NC; tw2 11:00 BP 116 / 59; Pulse 84; Resp 17; Pulse Ox 100% on 1 lpm NC; tw2 12:00 BP 127 / 76; Pulse 81; Resp 16; Pulse Ox 100% on 1 lpm NC; tw2 13:19 BP 123 / 85; Pulse 77; Resp 17; Pulse Ox 99% on 1 lpm NC; tw2 09:00 Body Mass Index 32.08 (104.33 kg, 180.34 cm) tw2 ED Course: 08:55 Patient arrived in ED. sp3 08:55 Breana Field MD is Attending Physician. sp3 08:55 Bed in low position. Call light in reach. Side rails up X2. ekg monitor on. Pulse tw2 ox on. NIBP on. Warm blanket given. 08:57 EKG done, by ED staff, reviewed by Breana Field MD. ap3 08:59 Myranda Wan, RN is Primary Nurse. tw2 08:59 Arm band placed on. tw2 09:01 Triage completed. tw2 09:17 Inserted saline lock: 22 gauge in right wrist, using aseptic technique. Blood collected.ap3 09:21 xray at patients bedside. ap3 09:30 XRAY Chest (1 view) In Process Unspecified. EDMS 10:07 Alfred Jackson MD is Hospitalizing Provider. sp3 13:55 IV discontinued, intact, bleeding controlled, No redness/swelling at site. Pressure tw2 dressing applied. Administered Medications: No medications were administered Medication: 09:07 VIS not applicable for this client. tw2 Output: 13:19 Urine: 400ml (Voided); Total: 400ml. tw2 Outcome: 10:07 Decision to Hospitalize by Provider. sp3 13:55 AMA AMA form signed tw2 13:55 Patient left the ED. tw2 Signatures: Dispatcher [employer] EDMS Myranda Wan RN RN tw2 Tianna Cowan RN RN ap3 Breana Field MD MD sp3 Corrections: (The following items were deleted from the chart) 09:05 08:55 Chief complaint: EMS states: pt c/o CHEST PAIN that started approximately 0730 tw2 this morning. pt did take 2 ASA and 0.4 SL Nitro PRIOR to our arrival. we gave 2 more aspirin. unsuccessful attempt at iv tw2
[2021-12-12 15:25] VITALS: TEMP 98.1
[2021-12-12 15:49] VITALS: BP 123/85; O2SAT 99
--- NOTE | 2021-12-13 14:35 | EKG ---
Test Date: 2021-12-12 Test Time: 08:57:12 General Duty Nurse: ALP MEASUREMENT RESULTS: Intervals: Rate: 103 RI: QRSD: 100 QT: 372 QTc: 487 Slick: P: RI: QRS: 74 T: -18 INTERPRETIVE STATEMENTS: Atrial fibrillation with rapid ventricular response with premature ventricular or aberrantly conducted complexes Low voltage QRS T wave abnormality, consider inferior ischemia or digitalis effect Abnormal ECG Compared to ECG 05/29/2021 15:50:35 Low QRS voltage now present T-wave abnormality now present Possible ischemia now present Electronically Signed On 12-13-21 14:32:41 CDT by Jet Rivera
== END ==
LOC: ER 08:46
DX: R07.89 Other chest pain (principal); I25.10 Atherosclerotic heart disease of native coronary artery without angina pectoris; E11.9 Type 2 diabetes mellitus without complications; I10 Essential (primary) hypertension; I50.9 Heart failure, unspecified; J44.9 Chronic obstructive pulmonary disease, unspecified; I48.91 Unspecified atrial fibrillation; Z79.01 Long term (current) use of anticoagulants; Z79.82 Long term (current) use of aspirin; Z88.6 Allergy status to analgesic agent; Z88.8 Allergy status to other drugs, medicaments and biological substances; Z20.822 Contact with and (suspected) exposure to COVID-19
CPT/HCPCS: 36415; 71045; 80048; 83880; 84484; 85025; 85610; 87811; 93005; 99284

== ENCOUNTER 2022-09-05 12:54 | Emergency (ER) | payer OTHER ==
--- OUTSIDE RECORDS SUMMARY | 2022-09-05 13:04 | XMS REPORT | Continuity of Care Document ---
:1950 Author Organization [facility] t Address [address] [place] [address] Care Team Providers Name Role Phone Aakash Ferrell MD Primary Care Physician Alireza Gomez Attending Clinician Unavailable SURENDRA POLLARD Attending Clinician Unavailable AAKASH FERRELL Attending Clinician Unavailable Ramon NEWMAN, Danay Attending Clinician Unavailable Magda Hanley RN Attending Clinician Unavailable Maulik Trejo MD Attending Clinician Tameka Ramos MA Attending Clinician Unavailable Frederick SOTO, Prakash Attending Clinician Klaus Perkins Attending Clinician Bharath Guillermo Attending Clinician Kira Hatfield Attending Clinician Slick Sepulveda Attending Clinician Anna Marie Falcon Admitting Clinician Bharath Guillermo Admitting Clinician Michael Schultz Admitting Clinician Holly Parrish Admitting Clinician Payers Payer Name Policy Type Policy Number Effective Date Expiration Date S matthew [employer] MEDICARE [id number] 2020 ADVANTAGE 00:00:00 Problems Condition Condition Condition Status Onset Resolution Last Treating Co mments Source Name Details Category Date Date Treatment Clinician Date PNEUMOTHOR PNEUMOTHO Diagnosis Active 2016-10-15 Memoria AX RAX Active 10-06 22:01:00 l 10/06/2016 00:00: Derick franz [address] UNK UNK Diagnosis Active 2016-01-25 Mem oria Active 01-02 11:14:00 l 01/03/2016 00:00: Derick franz [address] INFRARENAL INFRARENA Diagnosis Active 2015-11-15 Memoria AORTIC L AORTIC 11-05 20:54:00 l ANEURYSM ANEURYSM 00:00: Derick franz Active 00 11/06/2015 [facility] TIA, AF, TIA, AF, Diagnosis Active 2015-06-15 Memoria IC IC 06-09 09:30:00 l ATHEROSCLE ATHEROSCLE 00:00: Judd GARRISON 00 Active 06/09/2015 [facility] TIA TIA Diagnosis Active 2015-06-09 Mem oria Active 06-09 18:53:00 l 06/09/2015 00:00: Derick franz [address] ACS R/O ACS R/O Diagnosis Active 2012-01-14 Memoria Active 01-13 14:46:00 l 01/14/2012 00:00: Derick franz [address] CHEST PAIN CHEST Diagnosis Active 2012-01-14 Memoria PAIN 01-13 14:45:00 l Active 00:00: Hector 01/14/2012 00 [facility] Atrial Atrial Problem Resolve 2016-10-16 Mem oria fibrillati fibrillati d 00:08:43 l on on [place] (disorder) (disorder) Resolved Problem 10/16/2016 [facility] OPID Adrian Myocardial Myocardia Problem Resolve 2016-10-16 Memoria infarction l d 00:08:43 l (disorder) infarction He rmann (disorder) Resolved Problem 10/16/2016 [facility]id Hyperlipi Problem Resolve 2016-10-16 Memoria emia demia d 00:08:43 l (disorder) (disorder) He rmann Resolved Problem 10/16/2016 [facility] Smoker Smoker Problem Resolve 2016-10-16 Me moria (finding) (finding) d 00:08:43 l Resolved Hector Problem 10/16/2016 [facility] Tinnitus Tinnitus Problem Resolve 2016-10-16 Memoria (finding) (finding) d 00:08:43 l Resolved [place] Problem 10/16/2016 [facility]OC [place] Chest pain Chest Problem Active 2012-01-17 M emoria pain 09:08:08 l Active Hector Problem 01/17/2012 [facility] Abdominal Abdominal Problem Active 2016-10-16 Memoria aortic aortic 00:08:43 l aneurysm aneurysm Derick n without without rupture rupture (disorder) (disorder) Active Problem 10/16/2016 [facility] Acute Acute Problem Active 2016-10-16 Memor ia renal renal 00:08:43 l failure failure [place] syndrome syndrome (disorder) (disorder) [facility] Transient Transient Problem Active 2016-10-16 Memoria ischemic ischemic 00:08:43 l attack attack Hector (disorder) (disorder) Active Problem 10/16/2016 [facility] 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:08:43 l coronary coronary Derick n artery artery (disorder) (disorder) Active Problem 10/16/2016 [facility] [place] Chest pain Chest Problem Active 2016-10-16 M emoria (finding) pain 00:08:43 l (finding) Hector Active Problem 10/16/2016 [facility] Diabetes Diabetes Problem Active 2016-10-16 Memoria mellitus mellitus 00:08:43 l (disorder) (disorder) He rmann Active Problem 10/16/2016 [facility] Diverticul Diverticu Problem Active 2016-10-16 Memoria itis litis 00:08:43 l (disorder) (disorder) He rmann Active Problem 10/16/2016 [facility] Hearing Hearing Problem Active 2016-10-16 Me moria loss loss 00:08:43 l (finding) (finding) Herm ramos Active Problem 10/16/2016 [facility] Hypertensi Hypertens Problem Active 2016-10-16 Memoria ve gwen 00:08:43 l disorder, disorder, Herm ramos systemic systemic arterial arterial (disorder) (disorder) Active Problem 10/16/2016 [facility] Serum Serum Problem Active 2016-10-16 Memor ia creatinine creatinine 00:08:43 l raised raised [place] (finding) (finding) Active Problem 10/16/2016 [facility] Sleep Sleep Problem Active 2016-10-16 Memor ia apnea apnea 00:08:43 l (finding) (finding) Herm ramos Active Problem 10/16/2016 [facility] 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 Hector Active [facility] TRANSIENT TRANSIENT Diagnosis Active 2015-06-15 Memoria CEREBRAL CEREBRAL 09:30:00 l ISCHEMIC ISCHEMIC Derick n ATTACK, ATTACK, UNSP UNSP Active [facility] ILLNESS, ILLNESS, Diagnosis Active 2015-11-15 Memoria UNSPECIFIE UNSPECIFIE 20:54:00 l D D Active Hector [facility] ABDOMINAL ABDOMINAL Diagnosis Active 2016-01-25 Memoria AORTIC AORTIC 11:14:00 l ANEURYSM, ANEURYSM, Herm ramos WITHOUT WITHOUT RUPTU RUPTU Active [facility] [id number] Orchitis, Problem Active Com mon left [facility] [id number] BPH loc w Problem Active Com mon urin Spirit obs/LUTS - [facility] [id number] Upper Problem Active Common respirator Spirit y tract - [facility] infection[facility] unspecif[facility] [id number] Cough Problem Active Common [facility] Allergies, Adverse Reactions, Alerts Allergy Allergy Status Severity Reaction(s) Onset Inactive Treating Comm ents Source Name Type Date Date Clinician Statins Allergy Active to 08-09 [facility] 00:00: e 00 Robaxin Robaxin Active Yolis Young statins statins Active Yolis Young Social History Social Habit Start Date Stop Date Quantity Comments Source Sex Assigned At Common Sp maury - [facility] History of Tobacco Current Smoker Co mmon Spirit - Use [facility] Exposure to 2021-11-09 2021-11-19 Not sure [place] [facility] SARS-CoV-2 (event) 00:00:00 11:01:00 Smoking Status Start Date Stop Date Source Tobacco smoking consumption unknown [facility] Social History 2016-10-06 23:40:51 Hoang hays Social History 2016-01-24 12:16:16 Hoang hays Medications Ordered Filled Start Stop Current Ordering Indication Dosage Frequency Signature Comments Components Source Medication Medication Date Date Medication? Clinician (SIG) Name Name nitroglycer Yes [facility] in 11-19 [facility] (Nitrostat) 11:09: 0.4 MG SL 41 tablet ciprofloxac Yes Q.5D Take by [facility] in (Cipro) 11-19 mouth 2 Health 500 MG 11:09: (two) tablet 41 times a day. losartan Yes [id number] 100mg QD Take 1 U T (Cozaar) 5-09 tablet Health 100 MG 00:00: (100 mg tablet 00 total) by mouth 1 (one) time each day. losartan Yes [id number] 100mg QD Take 1 [facility] T (Cozaar) 5-09 tablet Health 100 MG 00:00: (100 mg tablet 00 total) by mouth 1 (one) time each day. losartan 0 Yes [id number] 100mg QD Take 1 [facility] T (Cozaar) 5-09 tablet Health 100 MG 00:00: (100 mg tablet 00 total) by mouth 1 (one) time each day. losartan Yes [id number] 100mg QD Take 1 U T (Cozaar) 5-09 tablet Health 100 MG 00:00: (100 mg tablet 00 total) by mouth 1 (one) time each day. technetium 0 Yes 4001 18mCi UT Tc-99m 4-21 Health sestamibi 15:58: (Cardiolite 59 ) radio-isoto pe injection 18-45 millicurie technetium 2021-0 Yes 4001 18mCi UT Tc-99m 4-21 Health sestamibi 15:58: (Cardiolite 59 ) radio-isoto pe injection 18-45 millicurie technetium 2021-0 Yes 4001 18mCi [facility] Tc-99m [...] ) radio-isoto pe injection 18-45 millicurie technetium 2021-0 Yes 4001 8mCi UT Tc-99m 4-19 Health sestamibi 19:51: (Cardiolite 44 ) radio-isoto pe injection 8-18 millicurie technetium 2021-0 Yes 4001 8mCi UT Tc-99m 4-19 Health sestamibi 19:51: (Cardiolite 44 ) radio-isoto pe injection 8-18 millicurie technetium 2021-0 Yes 4001 8mCi [facility] Tc-99m 4-19 Health sestamibi 19:51: (Cardiolite 44 ) radio-isoto pe injection 8-18 millicurie technetium 2-0 Yes 4001 8mCi [facility] Tc-99m 4-19 Health [...] (two) tablet 32 times a day. nitroglycer 2-0 Yes [facility] in 08-09 [facility] (Nitrostat) 16:25: 0.4 MG SL 32 tablet ciprofloxac 2-0 Yes Q.5D Take by [facility] in (Cipro) 08-09 mouth 2 Health 500 MG 16:25: (two) tablet 32 times a day. nitroglycer 2-0 Yes [facility] in 08-09 Health (Nitrostat) 16:25: 0.4 MG SL 32 tablet ciprofloxac 2-0 Yes Q.5D Take by [facility] in (Cipro) 08-09 mouth 2 Health 500 MG 16:25: (two) tablet 32 times a day. nitroglycer 2-0 Yes [facility] in 08-09 Health (Nitrostat) 16:25: 0.4 MG SL 32 tablet ciprofloxac 2-0 Yes Q.5D Take by [facility] in (Cipro) 08-09 mouth 2 Health 500 MG 16:25: (two) tablet 32 times a day. nitroglycer 2-0 Yes [facility] in 08-09 [facility] (Nitrostat) 16:25: 0.4 MG SL 32 tablet ciprofloxac 2-0 Yes Q.5D Take by [facility] in (Cipro) 08-09 mouth 2 Health 500 MG 16:25: (two) tablet 32 times a day. losartan 2021- Yes [id number] 50mg QD Take 1 [facility] (Cozaar) 50 08-09 tablet (50 He alth MG tablet 00:00: mg total) 00 by mouth 1 (one) time each day. furosemide 2022- No [id number] 40mg QD Take 1 UT (Lasix) 40 08-09 tablet (40 He alth MG tablet 00:00: 04:59 mg total) 00 :00 by mouth 1 (one) time each day. furosemide 2021-2022- No [id number] 40mg QD Take 1 UT (Lasix) 40 08-09- tablet (40 He alth MG tablet 00:00: 04:59 mg total) 00 :00 by mouth 1 (one) time each day. furosemide 2021-2022- No [id number] 40mg QD Take 1 UT (Lasix) 40 08-09 tablet (40 He alth MG tablet 00:00: 04:59 mg total) 00 :00 by mouth 1 (one) time each day. furosemide 2022- No [id number] 40mg QD Take 1 UT (Lasix) 40 08-09-08 tablet (40 He alth MG tablet 00:00: 04:59 mg total) 00 :00 by mouth 1 (one) time each day. furosemide 2022- No [id number] 40mg QD Take 1 UT (Lasix) 40 08-09-08 tablet (40 He alth MG tablet 00:00: 04:59 mg total) 00 :00 by mouth 1 (one) time each day. furosemide 2022- No [id number] 40mg QD Take 1 UT (Lasix) 40 08-09- tablet (40 He alth MG tablet 00:00: 04:59 mg total) 00 :00 by mouth 1 (one) time each day. losartan 2021- No [id number] 50mg QD Take 1 U T (Cozaar) 50 08-09-09 tablet (50 H ealth MG tablet 00:00: 00:00 mg total) 00 :00 by mouth 1 (one) time each day. losartan 2021- No [id number] 50mg QD Take 1 U T (Cozaar) 50 08-09-08 tablet (50 H ealth MG tablet 00:00: 04:59 mg total) 00 :00 by mouth 1 (one) time each day. tamsulosin 2-0 Yes .4mg QD Take 0.4 [...] BY MOUTH EVERY DAY FOR 30 DAYS Flomax 0.4 Flomax 0.4 2021-0 2- No 1{capsu QD Flomax 0.4 MG MG 3-25 10-21 le} MG 00:00: 00:00 00 :00 Cipro 500 Cipro 500 2021-0 2021- No 1{table BID Cipro 500 MG MG 3-25 04-08 t} MG 00:00: 00:00 00 :00 metoprolol 2022-0 Yes 50mg Q.5D Take 50 [...] 50 MG 00 times a tablet day. isosorbide 2022-0 Yes 20mg Take 20 mg [...] 00 each day in the morning. NIFEdipine 2-0 Yes 60mg Take 60 mg U T XL -27 by mouth 1 Health (Procardia 00:00: (one) time XL) 60 MG 00 each day 24 hr in the tablet morning. Xarelto 20 2022-0 Yes 1 (one) UT MG tablet 1-27 time each Healt h 00:00: day in the 00 evening. glimepiride 2022-0 Yes 1mg Take 1 mg U T (Amaryl) 1 1-22 by mouth 1 Hea lth MG tablet 00:00: (one) time 00 each day in the morning. glimepiride 2022-0 Yes 1mg Take 1 mg U T (Amaryl) 1 -22 by mouth 1 Hea lth MG tablet [...] Take 1 mg U T (Amaryl) 1 -22 by mouth 1 Hea lth MG tablet 00:00: (one) time 00 each day in the morning. Kenalog Kenalog 2017- No 40mg Common (Triamcinol (Triamcinol 1-10 S pirit one) one) 00:00: - [facility] 00 [facility] Cardura 2016- No Notes: Memoria 6-12 (Same as: l 02:00: Cardsarthak) [place] 00 24 HR Yes 60 mg = 1 Memoria Nifedipine 6-11 tab, PO, l 60 MG 18:02: Daily, .., Derick n Extended 00 0 Release Refill(s) Tablet tramadol Yes 50 mg = 1 Elijah ella hydrochlori 11 tab, PO, l de 50 MG 17:33: Q6H, # 30 Herm ramos Oral Tablet 00 tab, 0 Refill(s) gabapentin Yes 300 mg = 1 M emoria 300 MG Oral 11 cap, PO, l Capsule 17:33: Q12H, # 60 Herm ramos 00 cap, 0 Refill(s) insulin Yes 9 unit, Memoria isophane 11 SUB-Q, l (NPH) 100 17:33: Q8H, 0 Derick n units/mL 00 Refill(s) human recombinant subcutaneou s suspension Doxazosin No Notes: Memori a 10-12 (Same as: l 05:48: Cardura) Robitussin- No Notes: Elijah ella DM 10-11 (dextromet l 23:00: horphan-gu aifenesin 10-100mg/5 ml 10 ml oral SOLN ud) (Same as: Robitussin DM) Albuterol 1 No Notes: SEE Memoria MG/ML 10-11 RT l Inhalant 22:22: DOCUMENTAT Her hays Solution 00 ION (Same as: Proventil) Robitussin No 30 mg, Memor ia Maximum 10-11 Route: PO, l Strength 22:22: Q6H, Dosing Weight 105.9, kg, Priority: NOW, Start date: 10/11/16 17:22:00 CDT, Duration: 30 day, Stop date: 11/10/16 12:00:00 CDT sennosides, No Notes: Elijah ella SHELTER 10-11 (Same as: l 22:00: Senokot) Magnesium No 800 mg, Memor ia Oxide 10-11 Route: PO, l 21:21: PRN, Dosing Weight 105.9, kg, PRN Abnormal Lab Result, For NON-ICU Patients Only., Start date: 10/11/16 16:21:00 CDT, Duration: 30 day, Stop date: 11/10/16 16:20:00 CDT Magnesium No 1 gm, Memoria Sulfate 10-11 Route: l 21:21: IVPB, PRN, [place] 00 Dosing Weight 105.9, kg, PRN Abnormal Lab Result, For NON-ICU Patients Only., Start date: 10/11/16 16:21:00 CDT, Duration: 30 day, Stop date: 11/10/16 16:20:00 CDT sodium 2017-0 No 30 mmol, Memoria phosphate 10-11 Route: l 21:21: IVPB, PRN, [place] 00 Dosing Weight 105.9, kg, PRN Abnormal Lab Result, For NON-ICU Patients Only., Start date: 10/11/16 16:21:00 CDT, Duration: 30 day, Stop date: 11/10/16 16:20:00 CDT Calcium 2017-0 No 2 gm, Memoria Gluconate 10-11 Route: l 21:21: IVPB, PRN, [place] 00 Dosing Weight 105.9, kg, PRN Abnormal Lab Result, For NON-ICU Patients Only., Start date: 10/11/16 16:21:00 CDT, Duration: 30 day, Stop date: 11/10/16 16:20:00 CDT potassium 2017-0 No 30 mmol, Elijah ella phosphate 10-11 Route: l 21:21: IVPB, PRN, [place] 00 Dosing Weight 105.9, kg, PRN Abnormal Lab Result, For NON-ICU Patients Only., Start date: 10/11/16 16:21:00 CDT, Duration: 30 day, Stop date: 11/10/16 16:20:00 CDT potassium 2017-0 No 2 pkt, Memori a phosphate-s 10-11 Route: PO, l odium 21:21: Dosing [place] phosphate 00 Weight 250 mg-280 105.9, kg, mg-160 mg PRN, PRN oral powder Abnormal for Lab reconstitut Result, ion For NON-ICU Patients Only, Start date: 10/11/16 16:21:00 CDT, Duration: 30 day, Stop date: 11/10/16 16:20:00 CDT potassium 2017-0 No 10 mEq, Memor ia chloride 10-11 Route: l 21:21: IVPB, PRN, Hector 00 Dosing Weight 105.9, kg, PRN Abnormal Lab Result, For NON-ICU Patients Only, Start date: 10/11/16 16:21:00 CDT, Duration: 30 day, Stop date: 11/10/16 16:20:00 CDT Isolyte S No Notes: Memori a (PH 7.4) 10-11 (Same as: l 500 mL 500 20:30: Isolyte S He rmann mL 00 PH7.4) Docusate No Notes: Memoria 10-11 (Same as: l 14:26: Colace) [place] (Do Not Crush) tramadol No Notes: Not Mem oria hydrochlori 10-11 to exceed l de 50 MG 05:00: 400mg/day. Her hays Oral Tablet 00 (Same As: Ultram) gabapentin No Notes: Memor ia 10-11 (Same as: l 02:00: Neurontin) Acetaminoph No Notes: Do M emoria en 300 MG / 10-10 not exceed l Codeine 18:57: 4gm/day of Herm ramos Phosphate acetaminop 30 MG Oral hen. (Same Tablet as: [Tylenol Tylenol with with Codeine #3] Codeine # 3) Sodium No 250 mL, Memoria Chloride 10-10 250 ml/hr, l 0.154 16:15: Infuse Hector MEQ/ML 00 Over: 1 Injectable hr, Route: Solution IV, 250, Drug form: INJ, ONCE, Priority: STAT, Dosing Weight 105.9 kg, Start date: 10/10/16 11:15:00 CDT, Duration: 1 doses or times, Stop date: 10/10/16 11:15:00 CDT gabapentin No Notes: Memor ia 10-09 (Same as: l 21:00: Neurontin) Hector 00 Hydromorpho No Notes: Elijah ella ne 10-09 (Same as: l 17:00: Dilaudid) conc = 0.5 mg/ml Hydromorph one UPPER MARKER Dose: ;Delay: ;Basal: Naloxone No Notes: Memoria 10-09 Same as l 16:42: Narcan neostigmine No Route: IV, Memoria (ANES) 10-09 Drug form: l 16:32: INJ, ONCE, [place] 00 Stop date: 10/09/16 11:32:00 CDT glycopyrrol No Route: IV, Memoria ate (ANES) 10-09 Drug form: l 16:32: INJ, ONCE, Stop date: 10/09/16 11:32:00 CDT Ondansetron No Notes: Elijah ella 10-09 (Same as: l 16:31: Zofran) MEDICATION WASTE Product Size: 4 mg Product Wasted: _0__ mg Naloxone No Notes: Memoria 10-09 Same as l 16:31: Narcan Flumazenil No Notes: Memor ia 10-09 (Same as: l 16:31: Romazicon) Fentanyl No Notes: Memoria 10-09 (Same as: l 16:31: Sublimaze) Preservati ve free. ondansetron No Route: IV, Memoria (ANES) 10-09 Drug form: l 16:03: INJ, ONCE, Stop date: 10/09/16 11:03:00 CDT acetaminoph No Route: IV, Memoria en (ANES) 10-09 Drug form: l (ANES) 15:29: INJ, Start Noemy date: 10/09/16 10:29:00 CDT, Stop date: 10/09/16 11:29:00 CDT norepinephr No Route: IV, Memoria ine (ANES) 10-09 Drug form: l 14:28: INJ, ONCE, Stop date: 10/09/16 9:28:00 CDT cisatracuri No Route: IV, Memoria um (ANES) 10-09 Drug form: l 14:18: INJ, ONCE, Stop date: 10/09/16 9:18:00 CDT midazolam No Route: IV, Me moria (ANES) 10-09 Drug form: l 14:13: SOLN, [place] 00 ONCE, Stop date: 10/09/16 9:13:00 CDT lidocaine No Route: IV, Me moria (ANES) 10-09 Drug form: l 14:13: INJ, ONCE, Stop date: 10/09/16 9:13:00 CDT propofol No Route: IV, Mem oria (ANES) 10-09 Drug form: l 14:13: INJ, ONCE, Hector 00 Stop date: 10/09/16 9:13:00 CDT ceFAZolin No Route: IV, Me moria (ANES) 10-09 Drug form: l 14:08: INJ, ONCE, Stop date: 10/09/16 9:08:00 CDT fentaNYL No Route: IV, Mem oria (ANES) 10-09 Drug form: l 14:08: INJ, ONCE, Stop date: 10/09/16 9:08:00 CDT Exparel No Notes: Memoria 10-09 (Same as: l 14:00: Exparel) NOT FOR IV use Postoperat gwen analgesia: Infiltrati on (local): Dose is based on surgical site and volume required to cover the area (in general, the maximum total dose is 266 mg). Bunionecto my: 7 mL into the tissues surroundin g the osteotomy and 1 mL into the subcutaneo us tissue of the surgical site (total dose = 8 mL [106 mg]) Hemorrhoid ectomy: 30 mL (20 mL vial diluted with 10 mL NS) divided and administer ed as 6 injections of 5 mL each (total dose = 30 mL [266 mg]) Isolyte S No Route: IV, Me moria (PH 7.4) 10-09 Total l 1000 mL 13:10: Volume: Hector (ANES) 00 1,000, Start date: 10/09/16 8:10:00 CDT, Stop date: 10/09/16 9:10:00 CDT Simethicone No Notes: Elijah ella 10-09 (Same as: l 04:50: Mylicon, Phazyme, Genasyme) GI cocktail No Notes: Elijha ella 10-09 G.I. l 04:49: Cocktail = antacid with simethicon e 22.5 mL - lidocaine viscous 7.5 mL sodium No 1,000 mL, Memori a chloride 10-09 Rate: 75 l 0.9% 1000 04:32: ml/hr, Derick n ml INJ 00 Infuse 1,000 mL over: 13.3 hr, Route: IV, Dosing Weight 105.9 kg, Total Volume: 1,000, Start date: 10/08/16 23:32:00 CDT, Duration: 30 day, Stop date: 11/07/16 23:31:00 CDT Zofran No Notes: Memoria 10-09 (Same as: l 01:48: Zofran) Hector MEDICATION WASTE Product Size: 4 mg Product Wasted: 0 mg Tums No Notes: Memoria 10-09 (Same As: l 01:37: Tums) [place] 00 Calcium Carbonate 500 mg = 200 mg elemental calcium Dose = mg calcium carbonate ( mg elemental calcium) heparin No Notes: Memoria 10-08 porcine l 21:00: heparin [place] 00 24 HR No Notes: Memoria Nifedipine 10-08 (Same as: l 60 MG 04:38: Adalat CC, Derick n Extended 00 Procardia Release XL) Give Tablet on empty stomach. Take 1 hour before or 2 hours after meal; "Avoid grapefruit and grapefruit juice". Do not crush metoprolol No Notes: Memor ia tartrate 10-08 (Same as: l 04:37: Lopressor) Hector 00 Acetaminoph No Notes: Elijah ella en 325 MG / 10-07 (Same as: l Hydrocodone 23:00: [place] Noemy nn Bitartrate 00 325/5) Do 5 MG Oral not exceed Tablet 4gm/day of [[place] acetaminop 5/325] hen. insulin, No Notes: Memoria isophane - Roll in l 21:00: palms of Hector hands gently; Do not shake vigorously . (Same as: Humulin N) Do not hold insulin without contacting prescriber WASTE: F/P - Black; E - Municipal Trash Bin Stable for 28 days at room temperatur e Expires in days from ____Date Acetaminoph No Notes: Elijah ella en 325 MG / 6- (Same as: l Hydrocodone 19:53: [place] Noemy nn Bitartrate 00 325/5) Do 5 MG Oral not exceed Tablet 4gm/day of [[place] acetaminop 5/325] hen. Morphine No Notes: Memoria - (Same l 17:31: as:MORPhin Hector 00 e Sulfate) Vancomycin No 750 mg, Elijah ella 10-07 Route: IV, l 15:41: ONCE, Hector Dosing Weight 105.9, kg, Start date: 10/07/16 10:41:00 CDT, Stop date: 10/07/16 10:41:00 CDT, ABX Indication : Bacteremia Insulin No 60 units) Elijah ella regular 10-07 WASTE: F/P l 15:40: - Black; E [place] - Municipal Trash Bin Stable for 28 days at room temperatur e Expires in days from ____Date Glucagon No 1 mg, Memoria 10-07 Route: IM, l 15:40: Drug form: [place] 00 PDR/INJ, PRN, Dosing Weight 105.9, kg, PRN Blood Glucose Results, Start date: 10/07/16 10:40:00 CDT, Duration: 30 day, Stop date: 11/06/16 10:39:00 CDT Dextrose No 25 gm, 50 Elijah ella 50% Syringe 6-05 mL, Route: l 15:40: IVP, Drug Hector 00 Form: INJ, Dosing Weight 105.9, kg, PRN, PRN Blood Glucose Results, Start date: 10/07/16 10:40:00 CDT, Duration: 30 day, Stop date: 11/06/16 10:39:00 CDT Calcium No Notes: Memoria Carbonate 10-07 (Same As: l 500 MG 10:45: Tums) Hector Chewable Calcium Tablet Carbonate 500 mg = 200 mg elemental calcium Dose = mg calcium carbonate ( mg elemental calcium) potassium No Notes: Memori a phosphate-s 6-05 (Same as: l odium 10:45: Phos-NaK) Hector phosphate 00 Each 1.5 250 mg-280 gm pkt has mg-160 mg 250mg oral powder phosphorou for s. Mix reconstitut w/2.5oz ion water and stir. Magnesium No Notes: Memori a Oxide 6-05 (Same as: l 10:45: Mag-Ox [place] 00 400) Magnesium oxide [id number] g elemental magnesium Dose=____m g magnesium oxide (___mg elemental magnesium) Magnesium No Notes: Memori a Sulfate 10-07 WASTE: F/P l 10:45: - Sink; E Hector - Municipal Trash Bin Calcium No Notes: Memoria Gluconate 10-07 WASTE: F/P l 10:45: - Sink; E [place] - Municipal Trash Bin potassium No Notes: Memori a chloride 6-05 (Same as: l 10:45: Potassium [place] 00 Chloride) sodium No 15 mmol, 5 Memor ia phosphate + 6-05 mL, Route: l sodium 10:45: IVPB, PRN, Noemy nn chloride 00 Dosing 0.9% INJ Weight 250 mL 105.9, kg, PRN Abnormal Lab Result, Start date: 10/07/16 5:45:00 CDT, Duration: 30 day, Stop date: 11/06/16 5:44:00 CDT, FOR ICU USE ONLY potassium No Notes: Memori a phosphate + 6-05 (Same as: l sodium 10:45: K [place] chloride 00 Phosphate. 0.9% INJ ) 1 mMol 250 mL phoshate has 1.47 mEq potassium Infuse over 4 hours Hydralazine No Notes: Elijah ella 6-05 (Same as: l 09:00: Apresoline Hector ) Push over 5 minutes Hydralazine No Notes: Elijah ella 6-05 (Same as: l 07:52: Apresoline Hector ) Push over 5 minutes 24 HR No Notes: Memoria Nifedipine 6-05 (Same as: l 30 MG 06:14: Adalat CC, Derick n Extended 00 Procardia Release XL) Give Tablet on empty stomach. Take 1 hour before or 2 hours after meal; "Avoid grapefruit and grapefruit juice". Do not crush Lisinopril No Notes: Memor ia -05 (Same as: l 06:13: Prinivil, Zestril) Isosorbide No Notes: Memor ia Dinitrate 10-07 (Same l 05:05: as:Isordil ) Take on empty stomach/ full glass of water Doxazosin No Notes: Memori a - (Same as: l 05:05: Cardura) metoprolol No 50 mg, Memor ia tartrate 10-07 Route: PO, l 01:00: Drug form: TAB, BID, Dosing Weight 105.9, kg, Start date: 10/06/16 20:00:00 CDT, Duration: 30 day, Stop date: 11/05/16 17:00:00 CDT metoprolol No Notes: Memor ia tartrate 10-06 (Same as: l 22:08: Lopressor) 24 HR No Notes: Memoria Nifedipine 10-06 (Same as: l 60 MG 18:23: Adalat CC, Derick Procardia Release XL) Give Tablet on empty stomach. Take 1 hour before or 2 hours after meal; "Avoid grapefruit and grapefruit juice". Do not crush Labetalol No 10 mg, Memori a 10-06 Route: IV, l 18:16: ONCE, Dosing Weight 105.9, kg, Start date: 10/06/16 13:16:00 CDT, Stop date: 10/06/16 13:16:00 CDT Glucagon No 1 mg, Memoria 10-06 Route: IM, l 15:22: Drug form: PDR/INJ, PRN, Dosing Weight 105.9, kg, PRN Blood Glucose Results, Start date: 10/06/16 10:22:00 CDT, Duration: 30 day, Stop date: 11/05/16 10:21:00 CDT Dextrose No 12.5 gm, Memor ia 50% Syringe 10-06 25 mL, l 15:22: Route: [place] 00 IVP, Drug Form: INJ, Dosing Weight 105.9, kg, PRN, PRN Blood Glucose Results, Start date: 10/06/16 10:22:00 CDT, Duration: 30 day, Stop date: 11/05/16 10:21:00 CDT Insulin, No Notes: Memoria Aspart, 10-06 Roll in l Human 15:22: palms of [place] 00 hands gently; Do not shake vigorously . (Same as: NovoLOG) "single patient use only" WASTE: F/P - Black; E - Municipal Trash Bin Stable for 28 days at room temperatur e. Expires in days from ____Date Docusate No Notes: Memoria - (Same as: l 14:00: Colace) [place] 00 (Do Not Crush) Ondansetron No Notes: Elijah ella 10-06 (Same as: l 12:15: Zofran) [place] 00 MEDICATION WASTE Product Size: 4 mg Product Wasted: ___ mg Morphine No Notes: Memoria - (Same l 12:15: as:MORPhin [place] 00 e Sulfate) Zofran No Notes: Memoria - (Same as: l 12:13: Zofran) [place] 00 MEDICATION WASTE Product Size: 4 mg Product Wasted: ___ mg Morphine No Notes: Memoria - (Same l 12:13: as:MORPhin [place] 00 e Sulfate) metoprolol No Notes: Memor ia tartrate 01-25 (Same as: l 02:00: Lopressor) [place] 00 Nifedipine No Notes: Memor ia 20 MG Oral 01-24 (Same as: l Capsule 22:27: Adalat, [place] 00 Procardia) "Avoid grapefruit and grapefruit juice influenza No Notes: Memori a virus 01-24 (Same as: l vaccine, 14:00: Fluzone Derick n inactivated 00 Quadrivale nt, Fluarix Quadrivale nt) For 3 years of age and older (0.5 mL IM) Shake well before use Streptococc No Notes: Elijah ella us 01-24 Lightly l pneumoniae 14:00: roll vial He rmann serotype 1 00 (DO NOT capsular SHAKE) antigen before diphtheria administra [id number] tion. protein (Same as: conjugate Prevnar vaccine / 13) Streptococc us pneumoniae serotype 14 capsular antigen diphtheria [id number] protein conjugate vaccine / Streptococc us pneumoniae serotype 18C capsular antigen d Enoxaparin No Notes: Memor ia 01-24 (Same as: l 13:00: Lovenox) [place] 00 potassium No Notes: Memori a chloride 01-24 Infuse at l 03:00: a rate of 10 mEq/hr. (Same as: KCL) potassium No 40 mEq, Memor ia chloride 01-24 Route: IV, l 00:06: ONCE, Dosing Weight 115.045, kg, Start date: 01/24/16 19:06:00 CDT, Stop date: 01/24/16 19:06:00 CDT Labetalol No Notes: Memori a 01-23 (Same as: l 23:32: Normodyne, Trandate) Push over 2 minutes Give bolus over 2-3 minutes. Vasotec No Notes: Memoria 01-23 (Same as: l 23:32: Vasotec-IV ) Insulin, No Notes: Memoria Aspart, 01-23 Roll in l Human 22:41: palms of hands gently; Do not shake vigorously . (Same as: NovoLOG) "single patient use only" WASTE: F/P - Black; E - Municipal Trash Bin Stable for 28 days at room temperatur e. Expires in days from ____Date Dextrose No 25 gm, 50 Elijah ella 50% Syringe 9-21 mL, Route: l 22:41: IVP, Drug Form: INJ, Dosing Weight 115.045, kg, PRN, PRN Blood Glucose Results, Start date: 01/24/16 17:41:00 CDT, Duration: 30 day, Stop date: 02/23/16 17:40:00 CDT Glucagon 2015-0 No 1 mg, Memoria 01-23 Route: IM, l 22:41: Drug form: [place] 00 PDR/INJ, PRN, Dosing Weight 115.045, kg, PRN Blood Glucose Results, Start date: 01/24/16 17:41:00 CDT, Duration: 30 day, Stop date: 02/23/16 17:40:00 CDT Hydralazine 2015-0 No Notes: Elijah ella 01-23 (Same as: l 22:22: Apresoline ) Push over 5 minutes Labetalol 2015-0 No 10 mg, Memori a 01-23 Route: l 19:23: IVP, Drug form: INJ, ONCE, Dosing Weight 115.045, kg, Start date: 01/24/16 14:23:00 CDT, Stop date: 01/24/16 14:23:00 CDT Ondansetron 2015-0 No 4 mg, Memor ia 01-23 Route: l 19:21: IVP, ONCE, Dosing Weight 115.045, kg, PRN Nausea & Vomiting, Start date: 01/24/16 14:21:00 CDT Promethazin 2015-0 No 6.25 mg, Me moria e 01-23 Route: l 19:21: IVPB, ONCE, Dosing Weight 115.045, kg, PRN Nausea & Vomiting, Start date: 01/24/16 14:21:00 CDT Naloxone 2015-0 No 0.4 mg, Memori a 01-23 Route: l 19:21: IVP, Q2MIN, Dosing Weight 115.045, kg, PRN Narcotic Reversal, Start date: 01/24/16 14:21:00 CDT, Duration: 8 doses or times, Stop date: Limited # of times Flumazenil 2015-0 No 0.2 mg, Elijah ella 01-23 Route: l 19:21: IVP, PRN, Dosing Weight 115.045, kg, PRN Benzodiaze pine Reversal, Initial dose, Start date: 01/24/16 14:21:00 CDT, Duration: 30 day, Stop date: 02/23/16 14:20:00 CDT Ketorolac No 30 mg, Memori a 01-23 Route: l 19:21: IVP, ONCE, Dosing Weight 115.045, kg, Start date: 01/24/16 14:21:00 CDT, Duration: 1 doses or times, Stop date: 01/24/16 14:21:00 CDT Hydromorpho No 0.5 mg, Mem oria ne 01-23 Route: l 19:21: IVP, Q5Min, Dosing Weight 115.045, kg, PRN Pain Score 7-10, Start date: 01/24/16 14:21:00 CDT, Duration: 4 doses or times, Stop date: Limited # of times Fentanyl No 25 Memoria 01-23 microgram, l 19:21: Route: IVP, Q5Min, Dosing Weight 115.045, kg, PRN Pain Score 4-6, Start date: 01/24/16 14:21:00 CDT, Duration: 4 doses or times, Stop date: Limited # of times glycopyrrol No Route: IV, Memoria ate (ANES) 01-23 Drug form: l 19:00: INJ, ONCE, Stop date: 01/24/16 14:00:00 CDT neostigmine No Route: IV, Memoria (ANES) 01-23 Drug form: l 19:00: INJ, ONCE, Stop date: 01/24/16 14:00:00 CDT sodium No 1,000 mL, Memori a chloride 01-23 Rate: 100 l 0.9% 1000 18:52: ml/hr, Derick n ml INJ 00 Infuse 1,000 mL over: 10 hr, Route: IV, Dosing Weight 115.045 kg, Total Volume: 1,000, Start date: 01/24/16 13:52:00 CDT, Duration: 30 day, Stop date: 02/23/16 13:51:00 CDT acetaminoph No Notes: Do M emoria en-codeine 01-23 not exceed l #3 18:52: 4gm/day of acetaminop hen. (Same as: Tylenol with Codeine # 3) Morphine No Notes: Memoria 01-23 (Same l 18:52: as:MORPhin e Sulfate) rocuronium No Route: IV, M emoria (ANES) 01-23 Drug form: l 18:37: INJ, ONCE, [place] 00 Stop date: 01/24/16 13:37:00 CDT propofol No Route: IV, Mem oria (ANES) 01-23 Drug form: l 18:37: INJ, ONCE, [place] 00 Stop date: 01/24/16 13:37:00 CDT lidocaine No Route: IV, Me moria (ANES) 01-23 Drug form: l 18:37: INJ, ONCE, Stop date: 01/24/16 13:37:00 CDT protamine No Route: IV, Me moria (ANES) 01-23 Drug form: l (ANES) 18:34: INJ, Start Noemy date: 01/24/16 13:34:00 CDT, Stop date: 01/24/16 14:34:00 CDT midazolam No Route: IV, Me moria (ANES) 01-23 Drug form: l 18:32: SOLN, [place] ONCE, Stop date: 01/24/16 13:32:00 CDT fentaNYL No Route: IV, Mem oria (ANES) 01-23 Drug form: l 18:32: INJ, ONCE, [place] 00 Stop date: 01/24/16 13:32:00 CDT ondansetron No Route: IV, Memoria (ANES) 01-23 Drug form: l 18:32: INJ, ONCE, [place] 00 Stop date: 01/24/16 13:32:00 CDT heparin No Route: IV, Elijah ella (ANES) 01-23 Drug form: l 18:32: INJ, ONCE, [place] 00 Stop date: 01/24/16 13:32:00 CDT acetaminoph No Route: IV, Memoria en (ANES) 01-23 Drug form: l (ANES) 18:26: INJ, Start Noemy date: 01/24/16 13:26:00 CDT, Stop date: 01/24/16 14:26:00 CDT sodium No Route: IV, Memor ia bicarbonate 01-23 Drug form: l (ANES) 18:19: INJ, Start Noemy nn (ANES) 00 date: 01/24/16 13:19:00 CDT, Stop date: 01/24/16 14:19:00 CDT LR 1000 mL No Route: IV, Christina emoria INJ (ANES) 01-23 Total l 18:09: Volume: [place] 00 1,000, Start date: 01/24/16 13:09:00 CDT, Stop date: 01/24/16 14:09:00 CDT vancomycin No Route: IV, M emoria (ANES) 01-23 Drug form: l (ANES) 17:44: INJ, Start Noemy nn date: 01/24/16 12:44:00 CDT, Stop date: 01/24/16 13:44:00 CDT ceFAZolin No Route: IV, moria (ANES) 01-23 Drug form: l (ANES) 17:42: INJ, Start Noemy nn date: 01/24/16 12:42:00 CDT, Stop date: 01/24/16 13:42:00 CDT sodium No Route: IV, Memor ia chloride 01-23 Total l 0.9% 1000 17:22: Volume: Noemy nn ml INJ 00 1,000, (ANES) Start date: 01/24/16 12:22:00 CDT, Stop date: 01/24/16 13:22:00 CDT Acetylcyste No Notes: Elijah ella ine 200 01-23 send to 2F l MG/ML 12:14: [place] Inhalant 00 Solution Ancef No Notes: Memoria 01-16 Same as: l 17:00: Ancef [place] 00 Vancomycin No 2001 mg: Me moria 01-16 infuse l 17:00: over 2.5 [place] 00 hours MEDICATION WASTE Product Size: 1000 mg Product Wasted: ___ mg rivaroxaban Yes 20 mg = 1 M emoria 20 MG Oral 9-14 tab, PO, l Tablet 16:47: QPM, # 30 Derick n [Xarelto] 00 tab, 3 Refill(s) 3 ML Yes 5 unit, Memoria Insulin -14 SUB-Q, l Lispro 100 16:45: Bedtime, # H ermann UNT/ML Pen 00 3 mL, 0 Injector Refill(s) [Humalog] Acetylcyste No 900 mg, Mem oria ine 200 -14 4.5 mL, l MG/ML 16:12: Route: PO, Derick n Inhalant 00 Drug form: Solution SOLN, PRN, Dosing Weight 114.2, kg, PRN Abnormal Lab Result, Start date: 01/17/16 11:12:00 CDT, Duration: 2 day, Stop date: 01/19/16 11:11:00 CDT sodium No 1,000 mL, Memori a chloride 01-16 Rate: 150 l 0.9% 1000 16:12: ml/hr, Derick n ml INJ 00 Infuse 1,000 mL over: 6.7 hr, Route: IV, Dosing Weight 114.2 kg, Total Volume: 1,000, Start date: 01/17/16 11:12:00 CDT, Duration: 30 day, Stop date: 02/16/16 11:11:00 CDT Furosemide No Notes: Memor ia 40 MG Oral 7-12 (Same as: l Tablet 21:00: Lasix) May Noemy nn [Lasix] 00 cause GI upset. Give with food or milk. Aspirin Yes 81 mg = 1 Memor ia Enteric 7-12 tab, PO, l Coated 81 20:53: Daily, # Herm ramos mg oral 45 60 tab, 1 delayed Refill(s) release tablet Insulin, Yes 4 unit, Memori a Aspart, 7-12 SUB-Q, l Human 20:53: TID-Before Derick n 00 Meals, PRN Blood Glucose Results, 0 Refill(s) Nitroglycer Yes 0.4 mg = 1 Memoria in 0.4 MG 7-12 tab, SL, l Sublingual 20:53: Q5Min, PRN H ermann Tablet 00 Chest Pain, # 30 tab, 0 Refill(s) 24 HR Yes 60 mg = 1 Memoria Nifedipine 7-12 tab, PO, l 60 MG 20:53: Q12H, # 60 Derick n Extended 00 tab, 0 Release Refill(s) Tablet 24 HR Yes = 1 patch, Memori a Nicotine 7-12 TOP, l 0.875 MG/HR 20:53: Daily, X 7 [place] Transdermal 00 day, # 7 Patch patch, 0 [Nicoderm Refill(s) C-Q] doxazosin 2 Yes 2 mg = 1 Me moria mg oral 7-12 tab, PO, l tablet 20:53: BID, # 30 Derick n 00 tab, 1 Refill(s) Metronidazo Yes 500 mg = 1 Memoria le 500 MG 7-12 tab, PO, l Oral Tablet 20:53: [id number], # H ermann 00 15 tab, 0 Refill(s) metoprolol Yes 50 mg = 1 Me moria tartrate 50 7-12 tab, PO, l mg oral 20:53: Q12H, # 60 Herm ramos tablet 00 tab, 0 Refill(s) isosorbide Yes 20 mg = 2 Me moria dinitrate 7-12 tab, PO, l 10 mg oral 20:53: TID, # 90 He rmann tablet 00 tab, 0 Refill(s) Insulin Yes 1 unit, Memoria Aspart 100 7-12 SUB-Q, l unit/ml - 20:53: TID-Before He rmann (Medium CD) 00 Meals, PRN Blood Glucose Results, see Sliding Scale instructio ns for dosing, # 3 mL, 1 Refill(s) Furosemide Yes 40 mg = 1 Me moria 40 MG Oral 7-12 tab, PO, l Tablet 20:53: Daily, # Hector [Lasix] 00 30 tab, 1 Refill(s) Flonase Yes 100 Memoria 0.05 mg/inh 7-12 microgram l nasal spray 20:53: = 2 spray, [place] 00 Each Affected Nostril, Daily, # 1 ea, 0 Refill(s) ezetimibe Yes 10 mg = 1 Mem oria 10 mg oral 7-12 tab, PO, l tablet 20:53: Daily, # [place] 00 30 tab, 0 Refill(s) ciprofloxac Yes 500 mg = 1 Memoria in 500 mg 7-12 tab, PO, l oral tablet 20:53: [id number], # 11 tab, 0 Refill(s) Lasix No Notes: Memoria 7-12 (Same as: l 14:00: Lasix) MEDICATION WASTE Product Size: 40 mg Product Wasted: ___ mg Insulin, No Notes: Memoria Aspart, 7-12 Roll in l Human 02:24: palms of hands gently; Do not shake vigorously . (Same as: NovoLOG) "single patient use only" WASTE: F/P - Black; E - Municipal Trash Bin Stable for 28 days at room temperatur e. Expires in days from ____Date Dextrose No 25 gm, 50 Elijah ella 50% Syringe 7-12 mL, Route: l 02:24: IVP, Drug Form: INJ, Dosing Weight 114.2, kg, PRN, PRN Blood Glucose Results, Start date: 11/13/15 21:24:00 CDT, Duration: 30 day, Stop date: 12/13/15 21:23:00 CDT Glucagon No 1 mg, Memoria 12 Route: IM, l 02:24: Drug form: PDR/INJ, PRN, Dosing Weight 114.2, kg, PRN Blood Glucose Results, Start date: 11/13/15 21:24:00 CDT, Duration: 30 day, Stop date: 12/13/15 21:23:00 CDT senna 8.6 No Notes: Memori a mg oral 7-11 (Same as: l tablet 17:00: Senokot) Lactulose No Notes: Memori a 667 MG/ML 7-11 (Same l Oral 17:00: as:Chronul [place] Solution ac) Dulcolax No Notes: Memoria Laxative 7-11 (Same As: l 14:00: Dulcolax, [place]-Lax) Milk of No Notes: Memoria Magnesia 7- (Same as: l 23:16: Milk of Magnesia, MOM) Reglan No Notes: Memoria 7-10 (Same as: l 23:16: Reglan) Lasix No Notes: Memoria 7- (Same as: l 16:43: Lasix) Magnesium No Notes: Memori a Oxide 11-11 (Same as: l 11:43: Mag-Ox [place] 00 400) Magnesium oxide 402bn=341f g elemental magnesium Dose=____m g magnesium oxide (___mg elemental magnesium) Simethicone No Notes: Elijah ella 11-10 (Same as: l 23:00: Mylicon) heparin No Notes: Memoria sodium, 11-10 porcine l porcine 21:00: heparin [place] 2500 UNT/ML 00 Injectable Solution Flonase No Notes: Memoria 0.05 mg/inh 11-10 (Same as: l nasal spray 16:11: Flonase) He rm Protonix No Notes: For Mem oria 11-10 IV push l 14:00: reconstitu te with 10 ml 0.9% sodium chloride and push over 2 minutes. (Same as: Protonix) metoprolol No Notes: Memor ia tartrate 11-10 (Same as: l 11:35: Lopressor) 24 HR No Notes: Memoria Nifedipine 11-10 (Same as: l 60 MG 11:33: Adalat CC, Derick n Extended 00 Procardia Release XL) Give Tablet on empty stomach. Take 1 hour before or 2 hours after meal; "Avoid grapefruit and grapefruit juice". Do not crush Sodium No 1,000 mL, Memori a Chloride 11-10 1,000 l 0.154 06:12: ml/hr, [place] MEQ/ML 00 Infuse Injectable Over: 1 Solution hr, Route: IV, 1,000, Drug form: INJ, ONCE, Priority: STAT, Dosing Weight 114.2 kg, Start date: 11/11/15 1:12:00 CDT, Duration: 1 doses or times, Stop date: 11/11/15 1:12:00 CDT Morphine No Notes: Memoria 11-10 (Same l 06:11: as:MORPhin [place] 00 e Sulfate) Metoprolol No Notes: Memor ia 11-10 (Same as: l 03:02: Lopressor) [place] 00 Push over 2 minutes potassium No Notes: Memori a chloride 11-10 (Same as: l 02:49: KCL) [place] 00 Infuse no faster than 10 mEq/hr if given peripheral ly. Zofran No Notes: Memoria 11-10 (Same as: l 01:02: Zofran) [place] MEDICATION WASTE Product Size: 4 mg Product Wasted: __0_ mg Maalox No Notes: Memoria Advanced 11-09 (aluminum l Regular 23:05: hydroxide- Herm ramos Strength 00 magnesium SUSP hyd-simeth icone 200-200-20 mg/5ml 30 ml ud SIN) Acetylcyste No 1,200 mg, M emoria ine 200 11-09 6 mL, l MG/ML 02:00: Route: PO, Derick n Inhalant 00 Drug form: Solution SOLN, Q12H, Dosing Weight 114.2, kg, Start date: 11/09/15 21:00:00 CDT, Duration: 4 doses or times, Stop date: 11/11/15 9:00:00 CDT sodium No 1,000 mL, Memori a chloride 11-08 Rate: 75 l 0.9% 1000 20:50: ml/hr, Derick n ml INJ 1000 00 Infuse mL over: 13.3 hr, Route: IV, Dosing Weight 114.2 kg, Total Volume: 1,000, Start date: 11/09/15 15:50:00 CDT, Stop date: 11/12/15 6:00:00 CDT Magnesium No Notes: Memori a Sulfate 11-08 WASTE: F/P l 16:35: - Sink; E [place] 00 - Municipal Trash Bin metoprolol No Notes: Memor ia tartrate 11-08 (Same as: l 15:03: Lopressor) [place] 00 12.5mg=1/4 X 50 mg tab. Heparin - No 4,000 Memoria one time 7-07 unit, 4 l bolus for 14:32: mL, Route: He rmann ACS 00 IV, Drug form: INJ, ONCE, Dosing Weight 114.2, kg, Priority: STAT, Start date: 11/09/15 9:32:00 CDT, Stop date: 11/09/15 9:32:00 CDT Heparin 60 No Route: Memor ia unit/kg 7-07 IVP, PRN, l Bolus 14:32: 4,000 [place] (Heparin 00 unit, 4 Dosing mL, Drug Weight) form: INJ, PRN, Heparin Protocol, Start date: 11/09/15 9:32:00 CDT Stop date: 12/09/15 9:31:00 CDT, 30 day Heparin 30 No Route: Memor ia unit/kg 7-07 IVP, PRN, l Bolus 14:32: 2,700 [place] (Heparin 00 unit, 2.7 Dosing mL, Drug Weight) form: INJ, PRN, Heparin Protocol, Start date: 11/09/15 9:32:00 CDT Stop date: 12/09/15 9:31:00 CDT, 30 day heparin No 500 mL, Memoria additive 11-08 Rate: l 25,000 unit 14:32: 21.48 Noemy nn [12 00 ml/hr, unit/kg/hr] Infuse + Premix over: 23.3 Diluent hr, Route: Dextrose 5% IV, Dosing 500 mL Weight 89.48 kg, Total Volume: 500 mL, Start date: 11/09/15 9:32:00 CDT, Duration: 30 day, Stop date: 12/09/15 9:31:00 CDT sennosides, No Notes: Elijah ella SHELTER 11-08 (Same as: l 14:00: Senokot) [place] 00 Calcium No Notes: Memoria Gluconate 11-08 WASTE: F/P l 13:07: - Sink; E [place] 00 - Municipal Trash Bin potassium No Notes: Memori a phosphate + 11-08 (Same as: l sodium 13:06: K [place] chloride 00 Phosphate. 0.9% INJ ) 1 mMol 250 mL phoshate has 1.47 mEq potassium Infuse over 4 hours potassium No Notes: Memori a chloride 11-08 (Same as: l 13:06: KCL) Infuse no faster than 10 mEq/hr if given peripheral ly. Lorazepam 0 No 1 mg, Memoria 11-08 Route: IV, l 07:53: ONCE, Dosing Weight 114.2, kg, Start date: 11/09/15 2:53:00 CDT, Stop date: 11/09/15 2:53:00 CDT Morphine No 4 mg, Memoria 11-08 Route: l 07:44: IVP, ONCE, Dosing Weight 114.2, kg, Start date: 11/09/15 2:44:00 CDT, Stop date: 11/09/15 2:44:00 CDT Morphine No 2 mg, Memoria 11-08 Route: l 07:43: IVP, ONCE, Dosing Weight 114.2, kg, Start date: 11/09/15 2:43:00 CDT, Stop date: 11/09/15 2:43:00 CDT Nicardipine No Notes: Elijah ella 11-08 Same as: l 06:48: Cardene Concentrat ion: (0.2 mg /1 ml ) esmolol No Notes: Memoria 11-08 (Same as: l 06:11: Brevibloc) 10 mg/ml conc. Ativan No 1 mg, Memoria 11-08 Route: l 05:52: IVP, Drug form: INJ, ONCE, Dosing Weight 114.2, kg, PRN Anxiety, Start date: 11/09/15 0:52:00 CDT Morphine No Notes: Memoria 11-08 (Same l 05:22: as:MORPhin e Sulfate) Metronidazo No Notes: Elijah ella le 11-08 (Same as: l 00:00: Flagyl) Take with food/ avoid alcohol Ciprofloxac No Notes: May Memoria in 11-07 interfere l 22:00: w/enteral feedings - Take 1 hr before or 2 hrs after antacids, dairy pdt & minerals. On empty stomach. Ativan No Notes: Memoria 11-07 (Same as: l 08:14: Ativan) Tylenol No Notes: Do Memor ia 11-07 not exceed l 03:33: 4 gm/day. [place] (Same as: Tylenol) Morphine No Notes: Memoria 11-07 (Same l 02:33: as:MORPhin e Sulfate) Nitroglycer No Notes: Elijah ella in 11-07 (Same l 02:33: as:Nitroqu ick, Nitrostat) "Do Not Crush" Sublingual tablet Hydralazine No Notes: Elijah ella 11-06 (Same as: l 22:49: Apresoline ) Push over 5 minutes heparin No Notes: Memoria sodium, 11-06 porcine l porcine 21:00: heparin [place] 2500 UNT/ML 00 Injectable Solution Metronidazo No Notes: Elijah ella le 11-06 (Same as: l 15:00: Flagyl) Avoid alcohol. Vancomycin No 2000 mg: Me moria 11-06 infuse l 14:06: over 2.5 hours MEDICATION WASTE Product Size: 1000 mg Product Wasted: ___ mg Zetia No Notes: Memoria 11-06 (Same as: l 14:00: Zetia) Isosorbide No Notes: Memor ia Dinitrate 11-06 (Same l 14:00: as:Isordil ) Take on empty stomach/ full glass of water Aspirin No Notes: Do Memor ia 11-06 not crush l 14:00: or chew. (Same As: Ecotrin) Doxazosin No Notes: Memori a 11-06 (Same as: l 11:10: Cardura) Calcium No 2,000 mg, Memor ia Gluconate 11-06 Route: l 10:59: IVPB, Drug form: INJ, ONCE, Dosing Weight 114.2, kg, Start date: 11/07/15 5:59:00 CDT, Stop date: 11/07/15 5:59:00 CDT Magnesium No 1 gm, Memoria Sulfate 11-06 Route: l 10:58: IVPB, Drug form: INJ, ONCE, Dosing Weight 114.2, kg, Start date: 11/07/15 5:58:00 CDT, Stop date: 11/07/15 5:58:00 CDT potassium No 30 mmol, Elijah ella phosphate 11-06 Route: l 10:58: IVPB, [place] 00 ONCE, Dosing Weight 114.2, kg, Start date: 11/07/15 5:58:00 CDT, Stop date: 11/07/15 5:58:00 CDT Nicotine No Notes: Memoria 11-06 (Same as: l 04:06: Habitrol) "Remove old patch before applicatio n of new patch" WASTE: F/P - P Waste Black; E - P Waste Black metoprolol No Notes: Memor ia tartrate 11-06 (Same as: l 02:00: Lopressor) Amlodipine No Notes: Memor ia 11-06 (Same as: l 02:00: Norvasc) Protonix No Notes: For Mem oria 11-05 IV push l 21:30: reconstitu te with 10 ml 0.9% sodium chloride and push over 2 minutes. (Same as: Protonix) Labetalol No 10 mg, Memori a 11-05 Route: IV, l 16:34: ONCE, Dosing Weight 114.2, kg, Start date: 11/06/15 11:34:00 CDT, Stop date: 11/06/15 11:34:00 CDT Vancomycin No 2000 mg: Me moria 11-05 infuse l 16:00: over 2.5 hours MEDICATION WASTE Product Size: 1000 mg Product Wasted: ___ mg Flagyl No Notes: Memoria 11-05 (Same as: l 16:00: Flagyl) Avoid alcohol. cefepime No Notes: Memoria 11-05 (Same As: l 16:00: Maxipime) MEDICATION WASTE Product Size: 1000 mg Product Wasted: ___ mg Docusate No Notes: Memoria 11-05 (Same as: l 14:00: Colace) (Do Not Crush) Enoxaparin No 30 mg, Memor ia 11-05 Route: l 09:00: SUB-Q, Drug form: INJ, [id number], Dosing Weight 114.2, kg, Start date: 11/06/15 4:00:00 CDT, Duration: 30 day, Stop date: 12/05/15 4:00:00 CDT heparin No Notes: Memoria 11-05 porcine l 09:00: heparin Acetaminoph No Notes: Elijah ella en 325 MG / 11-05 (Same as: l Hydrocodone 08:32: [place] Noemy nn Bitartrate 00 325/5) Do 5 MG Oral not exceed Tablet 4gm/day of acetaminop hen. Ondansetron No Notes: Elijah ella 11-05 (Same as: l 08:32: Zofran) MEDICATION WASTE Product Size: 4 mg Product Wasted: ___ mg Acetaminoph No Notes: Do M emoria en 11-05 not exceed l 08:32: 4 gm/day. [place] 00 (Same as: Tylenol) sodium No 1,000 mL, Memori a chloride 11-05 Rate: 30 l 0.45% 1000 08:28: ml/hr, Noemy nn ml INJ 00 Infuse 1,000 mL over: 33.3 hr, Route: IVPB, Dosing Weight 114.2 kg, Total Volume: 1,000, Start date: 11/06/15 3:28:00 CDT, Stop date: 12/06/15 3:27:00 CDT niCARdipine No Notes: Elijah ella 40 mg/ NS 11-05 Same as: l 200 ml IV 08:26: Cardene Noemy nn Soln 00 Concentrat (premix) 40 ion: (0.2 mg mg /1 ml ) Dextrose No 12.5 gm, Memor ia 50% Syringe 11-05 25 mL, l 08:17: Route: IVP, Drug Form: INJ, Dosing Weight 114.2, kg, PRN, PRN Blood Glucose Results, Start date: 11/06/15 3:17:00 CDT, Duration: 30 day, Stop date: 12/06/15 3:16:00 CDT Glucagon No 1 mg, Memoria 11-05 Route: IM, l 08:17: Drug form: PDR/INJ, PRN, Dosing Weight 114.2, kg, PRN Blood Glucose Results, Priority: STAT, Start date: 11/06/15 3:17:00 CDT, Duration: 30 day, Stop date: 12/06/15 3:16:00 CDT Xarelto No Notes: Memoria 2- (Same as: l 23:00: Xarelto) Administer with food Cardura No Notes: Memoria 2-07 (Same as: l 20:04: Cardura) Aspirin Yes 81 mg = 1 Memor ia Enteric 207 tab, PO, l Coated 81 20:01: Daily, # Herm ramos mg oral 00 60 tab, 1 delayed Refill(s) release tablet rivaroxaban Yes 20 mg, PO, Memoria 20 MG Oral 07 QPM, # 60 l Tablet 19:15: tab, 1 Hector [Xarelto] 00 Refill(s) Praluent No Praluent Memor ia (alirocumab 06-11 (alirocuma l ) 75 mg/ml 18:00: b) 75 Derick n 00 mg/ml, 75 mg, Drug form: MISC, Route: SUB-Q, Q14D, 06/11/15 12:00:00, Duration: 30 day, Stop date: 07/09/15 12:00:00 montelukast No Notes: Elijah ella -07 (Same l 15:00: as:Singula ir) 1 ML Yes 75 mg, Memoria alirocumab 2-07 SUB-Q, l 75 MG/ML 13:00: Q14D, 0 Derick n Auto-Inject 00 Refill(s) or [Praluent] Praluent No Praluent Memor ia (alirocumab 2-07 (alirocuma l ) 00:00: b), 75 Hector 00 mg/mL, Drug form: INJ, Route: SUB-Q, Q14D, 06/10/15 18:00:00, Duration: 30 day, Stop date: 07/08/15 9:00:00, Patient's Own Meds Sotalol No Notes: Memoria Hydrochlori - (Same As: l de 160 MG 23:00: Betapace) Her hays Oral Tablet 00 Losartan No Notes: Memoria 2- (Same as: l 21:46: Cozaar) Hector 00 Amlodipine No Notes: Memor ia 2- (Same as: l 21:05: Norvasc) [place] 00 sotalol 160 Yes 160 mg = 1 Memoria mg oral 2-06 tab, PO, l tablet 15:20: BID, 0 [place] 00 Refill(s) Aspirin No 81 mg = 1 Memor ia Enteric 2-06 tab, PO, l Coated 81 15:20: Daily, 0 Herm ramos mg oral 00 Refill(s) delayed release tablet doxazosin 2 Yes 2 mg = 1 Me moria mg oral 2-06 tab, PO, l tablet 15:20: BID, 0 Hetcor 00 Refill(s) losartan Yes 100 mg = 1 Mem oria 100 mg oral 2-06 tab, PO, l tablet 15:20: Daily, 0 Hector 00 Refill(s) Metformin Yes 1,000 mg = Me moria hydrochlori 2-06 1 tab, PO, l de 1000 MG 15:20: BID, 0 Noemy nn Oral Tablet 00 Refill(s) montelukast Yes 10 mg = 1 M emoria 10 mg oral 2-06 tab, PO, l tablet 15:08: QAM, 0 [place] 00 Refill(s) amLODIPine Yes 10 mg = 1 Me moria 10 mg oral 2-06 tab, PO, l tablet 15:08: BID, 0 [place] 00 Refill(s) GlipiZIDE Yes 5 mg = 1 Elijah ella XL 5 mg 2-06 tab, PO, l oral 15:08: BID, 0 [place] tablet, 00 Refill(s) extended release Aspirin No Notes: Memoria 2 Take with l 15:06: food. [place] 00 Saline No Notes: Memoria Flush 0.9% 06-10 (Same as: l 15:00: BD [place] Posiflush) heparin No Notes: Memoria 06-10 porcine l 15:00: heparin [place]ector Nicotine No Notes: Memoria 2- (Same as: l 15:00: Habitrol) Hector 00 "Remove old patch before applicatio n of new patch" WASTE: F/P - P Waste Black; E - P Waste Black remove No Notes: Memoria patch 06-10 Remove old l 15:00: patch Hector 00 before applicatio n of new patch. WASTE: F/P - P Waste Black; E - P Waste Black Regular No 60 units) Elijah ella Insulin, 06-10 WASTE: F/P l Human 100 05:20: - Black; E He rmann UNT/ML 00 - Injectable Municipal Solution Trash Bin Stable for 28 days at room temperatur e Expires in days from ____Date Dextrose No 6.25 gm, Memor ia 50% Syringe 06-10 12.5 mL, l 05:20: Route: [place] 00 IVP, Drug Form: INJ, Dosing Weight 115, kg, PRN, PRN Abnormal Lab Result, Start date: 06/09/15 23:20:00, Duration: 30 day, Stop date: 07/09/15 23:19:00 Aspirin No Notes: (Do Elijah ella 06-10 Not Crush) l 04:49: Do not Hecotr 00 crush or chew. Saline No Notes: Memoria Flush 0.9% 06-10 (Same as: l 04:47: BD [place] Posiflush) enalapril No Notes: Memori a 06-10 (Same as: l 04:47: Vasotec-IV [place] 00 ) Labetalol No 105 mmHg, Me moria 06-10 Priority: l 04:47: Routine, Hector 00 Start date: 06/09/15 22:47:00, Duration: 30 day, Stop date: 07/09/15 22:46:00 Sodium 2016-0 No 500 mL, Memoria Chloride 2-06 500 ml/hr, l 0.154 02:59: Infuse [place] MEQ/ML 00 Over: 1 Injectable hr, Route: Solution IV, ONCE, Priority: STAT, Dosing Weight 115 kg, Start date: 06/09/15 20:59:00, Duration: 1 doses or times, Stop date: 06/09/15 20:59:00 iodixanol 2016-0 No 85 mL, Memori a 2- Route: l 02:12: IVP, Drug [place] 00 Form: SOLN, Dosing Weight 115, kg, ONCALL, STAT, Start date: 06/09/15 20:12:00, Duration: 1 doses or times, Dose = 2.2ml/kg, Max dose = 100ml -- "To be infused by Radiology Staff ONLY" iodixanol 2016-0 No 0 mL, Memoria 2- Route: l 02:11: IVP, Drug [place] 00 Form: SOLN, Dosing Weight 115, kg, ONCALL, STAT, Start date: 06/09/15 20:11:00, Duration: 1 doses or times, Dose = 2.2ml/kg, Max dose = 100ml -- "To be infused by Radiology Staff ONLY" Iohexol 2016-0 No 85 mL, Memoria 2-06 Route: l 01:18: IVP, Drug [place] 00 Form: SOLN, Dosing Weight 115, kg, ONCALL, STAT, Start date: 06/09/15 19:18:00, Duration: 1 doses or times, Dose = 2.2ml/kg, Max dose = 100ml -- "To be infused by Radiology Staff ONLY" clonidine 2011-0 No Vinny 0.3 mg, 1 Memoria 0.3 mg oral 12 Sudarshan tab, l tablet 21:00: Popeye Route: PO, H erm Drug form: TAB, Q8H, Dosing Weight 113.636, kg, Start date: 01/15/12 16:00:00, Duration: 30 day, Stop date: 02/14/12 8:00:00 clonidine 2012-0 Yes Vinny 0.3 mg, 1 Memoria 0.3 mg oral 9-12 Sudarshan tab, PO, l tablet 20:30: Popeye Q8H, 90 Herm ramos 29 tab, Substituti on Allowed, TAB metoprolol Yes Vinny 75 mg, 3 Memoria 25 mg oral 9-12 Sudarshan tab, PO, l tablet 20:27: Popeye Q8H, 90 Herm ramos 17 tab, Substituti on Allowed, TAB Flomax 0.4 Yes Vinny 0.4 mg, 1 Memoria mg oral -12 Sudarshan cap, PO, l capsule 20:27: Popeye Daily, 30 H ermann 11 cap, Substituti on Allowed, CAP glipiZIDE 5 Yes Vinny 5 mg, 1 Memoria mg oral 9-12 Sudarshan tab, PO, l tablet 20:27: Popeye Daily, 30 He rmann 07 tab, Substituti on Allowed, TAB Plavix 75 Yes Vinny 75 mg, 1 M emoria mg oral -12 Sudarshan tab, PO, l tablet 20:27: Popeye Daily, 30 He rmann 03 tab, Substituti on Allowed, TAB metFORmin Yes Vinny 1,000 mg, Memoria 1000 mg 9- Sudarshan 1 tab, PO, l oral tablet 20:26: Popeye BID, 60 Hector 55 tab, Substituti on Allowed, TAB metoprolol No Vinny 75 mg, 3 Memoria tartrate -12 Sudarshan tab, l 20:13: Popeye Route: PO, Her hays Drug form: TAB, Q8H, Dosing Weight 113.636, kg, Priority: NOW, Start date: 01/15/12 15:13:00, Duration: 30 day, Stop date: 02/14/12 8:00:00 Flomax No Vinny 0.4 mg, 1 Mem oria 9- Sudarshan cap, l 14:00: Popeye Route: PO, Her hays 00 Drug form: CAP, Daily, Dosing Weight 113.636, kg, Start date: 01/15/12 9:00:00, Duration: 30 day, Stop date: 02/13/12 9:00:00 Plavix No Vinny 75 mg, 1 Elijah ella 01-14 Sudarshan tab, l 14:00: Popeye Route: PO, Her hays 00 Drug form: TAB, Daily, Dosing Weight 113.636, kg, Start date: 01/15/12 9:00:00, Duration: 30 day, Stop date: 02/13/12 9:00:00 glipiZIDE 5 No Vinny 5 mg, 1 Memoria mg oral 01-14 Sudarshan tab, l tablet 14:00: Popeye Route: PO, H ermann 00 Drug form: TAB, Daily, Dosing Weight 113.636, kg, Start date: 01/15/12 9:00:00, Duration: 30 day, Stop date: 02/13/12 9:00:00 Tylenol No Eliceo 650 mg, 2 Me moria 01-14 Edward tab, l 07:43: Brian Route: PO, Noemy nn 00 Drug form: TAB, Q4H, Dosing Weight 113.636, kg, PRN Pain, Start date: 01/15/12 2:43:00, Duration: 30 day, Stop date: 02/14/12 2:42:00 adenosine No Vinny 95.4542 Me moria 01-14 Sudarshan mg, Route: l 03:35: Popeye IVP, ONCE, Her hays Dosing Weight 113.636, kg, Priority: Routine, Start date: 01/14/12 22:35:00, Stop date: 01/14/12 22:35:00 Dextrose No Vinny 25 gm, 50 M emoria 50% Syringe 01-14 Sudarshan mL, Route: l 02:51: Popeye IVP, Drug Herm ramos 00 Form: INJ, Dosing Weight 113.636, kg, PRN, PRN Blood Glucose Results, Start date: 01/14/12 21:51:00, Duration: 30 day, Stop date: 02/13/12 21:50:00 glucagon No Vinny 1 mg, Memor ia 01-14 Sudarshan Route: IM, l 02:51: Popeye Drug form: Her hays 00 PDR/INJ, PRN, Dosing Weight 113.636, kg, PRN Blood Glucose Results, Start date: 01/14/12 21:51:00, Duration: 30 day, Stop date: 02/13/12 21:50:00 insulin 2011- No Vinny 10 unit, Mem oria aspart 01-14 Sudarshan 0.1 mL, l 02:51: Popeye Route: Hector 00 SUB-Q, Drug form: SOLN, TID-Before Meals, Dosing Weight 113.636, kg, PRN Blood Glucose Results, Start date: 01/14/12 21:51:00, Duration: 30 day, Stop date: 02/13/12 21:50:00 heparin No Vinny 5,000 Memori a - Sudarshan unit, 1 l 02:00: Popeye mL, Route: Her hays 00 SUB-Q, Drug form: INJ, Q12H, Dosing Weight 113.636, kg, Start date: 01/14/12 21:00:00, Duration: 30 day, Stop date: 02/13/12 9:00:00 Saline No Vinny 5 ml, Memoria Flush 0.9% 01-14 Sudarshan Route: l 02:00: Popeye IVP, Drug Herm Form: INJ, Dosing Weight 113.636, kg, Q12H, Start date: 01/14/12 21:00:00, Duration: 30 day, Stop date: 02/13/12 9:00:00 hydrALAZINE No Reagan 20 mg, 1 Memoria - Omidvar mL, Route: l 23:48: IVP, Drug Hector form: INJ, Q4H, Dosing Weight 113.636, kg, PRN Hypertensi on, Start date: 01/14/12 18:48:00, Duration: 30 day, Stop date: 02/13/12 18:47:00 Flomax 0.4 No Vinny 0.4 mg, 1 Memoria mg oral -11 Sudarshan cap, PO, l capsule 23:23: Popeye Daily, 30 H ermann 49 cap, Substituti on Allowed, CAP Plavix 75 No Vinny 75 mg, 1 M emoria mg oral 9- Sudarshan tab, PO, l tablet 23:23: Popeye Daily, 30 He rmann 02 tab, Substituti on Allowed, TAB metFORmin No Vinny 1,000 mg, Memoria 1000 mg 01-13 Sudarshan 1 tab, PO, l oral tablet 23:22: Popeye BID, 30 [place] 38 tab, Substituti on Allowed glipiZIDE 5 No Vinny 5 mg, 1 Memoria mg oral 01-13 Sudarshan tab, PO, l tablet 23:20: Popeye Daily, 30 He rmann 43 tab, Substituti on Allowed clonidine No 0.3 mg, Memor ia 0.3 mg oral 01-13 PO, BID, l tablet 23:19: 60 tab, [place] 46 Substituti on Allowed metoprolol No Vinny 50 mg, 1 Memoria tartrate 01-13 Sudarshan tab, l 22:03: Popeye Route: PO, Her hays 00 Drug form: TAB, Q12H, Dosing Weight 113.636, kg, Priority: NOW, Start date: 01/14/12 17:03:00, Duration: 30 day, Stop date: 02/13/12 9:00:00 clonidine No Vinny 0.3 mg, 1 Memoria 0.3 mg oral 01-13 Sudarshan tab, l tablet 22:00: Popeye Route: PO, H ermann 00 Drug form: TAB, BID, Dosing Weight 113.636, kg, Start date: 01/14/12 17:00:00, Duration: 30 day, Stop date: 02/13/12 9:00:00 Saline 2011- No Vinny 5 ml, Memoria Flush 0.9% 01-13 Sudarshan Route: l 21:52: Popeye IVP, Drug Herm ramos 00 Form: INJ, Dosing Weight 113.636, kg, PRN, PRN Line Flush, Start date: 01/14/12 16:52:00, Duration: 30 day, Stop date: 02/13/12 16:51:00 nitroglycer No Vinny 0.4 mg, 1 Memoria in SL Tab 01-13 Sudarshan tab, l 21:52: Popeye Route: SL, Her hays 00 Drug form: TAB, Q5Min, Dosing Weight 113.636, kg, PRN Chest Pain, Start date: 01/14/12 16:52:00, Duration: 3 doses or times, Stop date: Limited # of times nitroglycer No Ajita 1 inch, Me moria in 2% 01-13 Olga Route: l ointment 21:01: Thea TOP, Drug Herm ramos 00 Form: OINT, Dosing Weight 113.636, kg, ONCE, STAT, Start date: 01/14/12 16:01:00, Stop date: 01/14/12 16:01:00 acetaminoph 2011- No Ajita 650 mg, Me moria en 01-13 Olga Route: PO, l 19:24: Thea Drug form: Hector 00 TAB, ONCE, Dosing Weight 113.636, kg, Priority: STAT, Start date: 01/14/12 14:24:00, Stop date: 01/14/12 14:24:00 Vasotec No Ajita 1.25 mg, 1 Mem oria 01-13 Olga mL, Route: l 18:54: Thea IV, Drug Hector 00 form: INJ, ONCE, Dosing Weight 113.636, kg, Start date: 01/14/12 13:54:00, Stop date: 01/14/12 13:54:00 enalaprilat No Chauncey 1.25 mg, 1 Memoria 01-13 Urban mL, Route: l 18:52: [place] IV, Drug Herm ramos 00 form: INJ, ONCE, Dosing Weight 113.636, kg, Start date: 01/14/12 13:52:00, Stop date: 01/14/12 13:52:00 Sodium 2011-0 No Ajita 500 mL, Memoria Chloride 01-13 Olga Rate: 500 l 0.9% 17:42: Thea ml/hr, Hector (Bolus) IV 00 Infuse 500 mL over: 1 hr, Route: IV, kg, Total Volume: 500, Bolus Dose, Priority: STAT, Start date: 01/14/12 12:42:00, Duration: 1 doses or times, Stop date: 01/14/12 13:41:00 magnesium 2011-0 No Ajita 2 gm, 50 Mem oria sulfate 01-13 Olga mL, Route: l 17:42: Thea IV, Drug [place] 00 form: INJ, ONCE, Dosing Weight 113.636, kg, Priority: STAT, Start date: 01/14/12 12:42:00, Stop date: 01/14/12 12:42:00 ondansetron No Ajita 4 mg, Elijah ella 01-13 Olga Route: l 17:14: Thea IVP, Drug form: INJ, ONCE, Dosing Weight 113.636, kg, Priority: STAT, Start date: 01/14/12 12:14:00, Stop date: 01/14/12 12:14:00 nitroglycer No Ajita 100 mg, Me moria in 100 mg 01-13 Olga 250 mL, l in 250 ml 16:14: Thea Rate: Hector D5W Premix 00 Titrate, (titrate) Dosing 100 mg Weight 113.636, kg, Route: IV, Total Volume: 250, Start @ 10 mcg/min then titrate to pain and maintain SBP 162, Start date: 01/14/12 11:14:00, Duration: 24 hr, Stop date: 01/15/12 11:13:00, Replace Every: 24 hr Saline No Ajita 5 ml, Memoria Flush 0.9% 01-13 Route: l 16:14: Thea IVP, Drug Form: INJ, Dosing Weight 113.636, kg, PRN, PRN Line Flush, Start date: 01/14/12 11:14:00, Duration: 24 hr, Stop date: 01/15/12 11:13:00 NIFEdipine NIFEdipine No NIFEdipine ER Osmotic ER Osmotic ER Osmotic Release Release Release Isosorbide Isosorbide No Isosorbide Dinitrate Dinitrate Dinitrate hydrALAZINE hydrALAZINE No hydrALAZIN HCl HCl E HCl Furosemide Furosemide No Furosemide HumaLOG HumaLOG No HumaLOG Metoprolol Metoprolol No Metoprolol Tartrate Tartrate Tartrate Xarelto Xarelto No Xarelto Immunizations Ordered Immunization Filled Immunization Date Status Commen ts Source Name Name pneumococcal 2016-01-25 Completed [facility] 13-valent vaccine 14:00:00 Hector influenza virus 2016-01-25 Completed [facility] vaccine, inactivated 13:58:00 Renetta beasley Vital Signs Vital Name Observation Time Observation Value Comments Source Systolic blood 2021-11-19 16:10:00 131 mm[Hg[facility] Diastolic blood 2021-11-19 16:10:00 85 mm[Hg] [facility] Heart rate 2021-11-19 16:10:00 76 /min [facility] Respiratory rate 2021-11-19 16:10:00 18 /min [facility] Body weight 2021-11-19 16:10:00 [facility]045 [facility] 2021-11-19 16:10:00 33.53 kg/m2 [facility] Oxygen saturation in 2021-11-19 16:10:00 99 /min [facility] Arterial blood by Pulse oximetry height 2021-07-27 13:00:00 70 [in_i] [facility] weight 2021-07-27 13:00:00 247 [lb_av] [facility] temperature 2021-07-27 13:00:00 98.1 [degF] [facility] bmi 2021-07-27 13:00:00 35.44 kg/m2 [facility] oximetry 2021-07-27 13:00:00 98 % [facility] heart rate 2021-07-27 13:00:00 72 /min [facility] respiratory rate 2021-07-27 13:00:00 16 /min Comm on [facility] blood pressure 2021-07-27 13:00:00 166 mm[Hg] [facility] systolic [facility] blood pressure 2021-07-27 13:00:00 68 mm[Hg] [facility] - diastolic [facility] Systolic (mm Hg) 2016-10-13 19:00:00 Elijah rial [place] Diastolic (mm Hg) 2016-10-13 19:00:00 Mem orial [place] Systolic (mm Hg) 2016-10-13 18:00:00 Elijah rial [place] Diastolic (mm Hg) 2016-10-13 18:00:00 Mem orial [place] Systolic (mm Hg) 2016-10-13 17:09:00 Elijah rial [place] Diastolic (mm Hg) 2016-10-13 17:09:00 Mem orial [place] Respitory Rate 2016-10-13 16:00:00 Memori al [place] Temperature Oral (F) 2016-10-13 16:00:00 97.9 F [facility] [place] Respitory Rate 2016-10-13 13:00:00 Memori al [place] Temperature Oral (F) 2016-10-13 12:00:00 99.3 F [facility] [place] Temperature Oral (F) 2016-10-13 09:00:00 97.9 F [facility] [place] Respitory Rate 2016-10-12 22:00:00 Memori al [place] Height 2016-10-06 13:54:00 177.8 cm [facility] [place] Weight 2016-10-06 13:54:00 [facility] [place] BMI Calculated 2016-10-06 13:54:00 Memori al [place] Systolic (mm Hg) 2016-01-25 22:00:00 Elijah rial [place] Diastolic (mm Hg) 2016-01-25 22:00:00 Mem orial [place] Respitory Rate 2016-01-25 22:00:00 Memori al [place] Systolic (mm Hg) 2016-01-25 21:00:00 Elijah rial [place] Diastolic (mm Hg) 2016-01-25 21:00:00 Mem orial [place] Respitory Rate 2016-01-25 21:00:00 Memori al [place] Systolic (mm Hg) 2016-01-25 20:00:00 Elijah rial [place] Diastolic (mm Hg) 2016-01-25 20:00:00 Mem orial [place] Respitory Rate 2016-01-25 20:00:00 Memori al [place] Heart Rate 2016-01-24 11:30:00 [facility] [place] Temperature Oral (F) 2016-01-17 18:11:00 98.1 F [facility] [place] Heart Rate 2016-01-17 18:11:00 [facility] [place] BMI Calculated 2016-01-17 17:29:00 Memori al [place] Weight 2016-01-17 17:29:00 [facility] [place] Height 2016-01-17 17:29:00 180.34 cm [facility] [place] Diastolic (mm Hg) 2015-11-14 22:30:00 Mem orial [place] Respitory Rate 2015-11-14 22:30:00 Memori al [place] Systolic (mm Hg) 2015-11-14 22:30:00 Elijah rial [place] Respitory Rate 2015-11-14 22:00:00 Memori al [place] Systolic (mm Hg) 2015-11-14 22:00:00 Elijah rial [place] Diastolic (mm Hg) 2015-11-14 22:00:00 Mem orial [place] Respitory Rate 2015-11-14 21:30:00 Memori al [place] Systolic (mm Hg) 2015-11-14 21:30:00 Elijah rial [place] Diastolic (mm Hg) 2015-11-14 21:30:00 Mem orial [place] Temperature Oral (F) 2015-11-14 21:00:00 97.3 F [facility] [place] Temperature Oral (F) 2015-11-14 13:00:00 97.6 F [facility] [place] Temperature Oral (F) 2015-11-13 17:00:00 96.9 F [facility] [place] Height 2015-11-06 07:42:00 177.8 cm [facility] [place] Weight 2015-11-06 07:42:00 [facility] [place] BMI Calculated 2015-11-06 07:42:00 Memori al [place] BMI Calculated 2015-11-06 07:30:00 Memori al [place] Weight 2015-11-06 07:30:00 [facility] [place] Height 2015-11-06 07:30:00 177.8 cm [facility] [place] Systolic (mm Hg) 2015-06-11 21:42:00 Elijah rial [place] Diastolic (mm Hg) 2015-06-11 21:42:00 Mem orial [place] Respitory Rate 2015-06-11 21:42:00 Memori al [place] Temperature Oral (F) 2015-06-11 21:42:00 97.2 F [facility] [place] Heart Rate 2015-06-11 21:42:00 [facility] [place] Heart Rate 2015-06-11 18:18:00 [facility] [place] Respitory Rate 2015-06-11 18:18:00 Memori al [place] Systolic (mm Hg) 2015-06-11 18:18:00 Elijah rial [place] Diastolic (mm Hg) 2015-06-11 18:18:00 Mem orial [place] Temperature Oral (F) 2015-06-11 18:18:00 97.9 F [facility] [place] Respitory Rate 2015-06-11 13:22:00 Memori al [place] Systolic (mm Hg) 2015-06-11 13:22:00 Elijah rial [place] Diastolic (mm Hg) 2015-06-11 13:22:00 Mem orial [place] Heart Rate 2015-06-11 13:22:00 [facility] [place] Temperature Oral (F) 2015-06-11 13:22:00 97.2 F [facility] [place] BMI Calculated 2015-06-10 06:42:00 Memori al [place] Height 2015-06-10 06:42:00 177.8 cm [facility] [place] Weight 2015-06-10 06:42:00 [facility] [place] Weight 2015-06-09 23:44:00 [facility] [place] BMI Calculated 2015-06-09 23:44:00 Memori al [place] Height 2015-06-09 23:44:00 177.8 cm [facility] [place] Diastolic (mm Hg) 2012-01-15 23:15:00 Mem orial [place] Heart Rate 2012-01-15 23:15:00 [facility] [place] Systolic (mm Hg) 2012-01-15 23:15:00 Elijah rial [place] Respitory Rate 2012-01-15 23:15:00 Memori al [place] Diastolic (mm Hg) 2012-01-15 22:47:00 Mem orial [place] Systolic (mm Hg) 2012-01-15 22:47:00 Elijah rial [place] Temperature Oral (F) 2012-01-15 22:47:00 98.6 F [facility] [place] Respitory Rate 2012-01-15 22:47:00 Memori al [place] Heart Rate 2012-01-15 22:47:00 [facility] [place] Systolic (mm Hg) 2012-01-15 20:36:00 Elijah rial [place] Temperature Oral (F) 2012-01-15 20:36:00 97.2 F [facility] [place] Heart Rate 2012-01-15 20:36:00 [facility] [place] Diastolic (mm Hg) 2012-01-15 20:36:00 Mem orial [place] Respitory Rate 2012-01-15 20:36:00 Memori al [place] Temperature Oral (F) 2012-01-15 17:15:00 97.8 F [facility] [place] Weight 2012-01-14 15:59:00 [facility] [place] Height 2012-01-14 15:59:00 177.80 cm [facility] Procedures Procedure Date / Time Performing Clinician Source Performed ECG 12-LEAD 2021-11-19 16:14:00 FerrellAakash caraballo [facility] Tonsillectomy 1956-05-05 06:00:00 [facility] Cardiac catheterization [facility] H[place] Laminectomy [facility] Stent placement<sup>1</sup> Elijah cortes [place] Encounters Start End Encounter Admission Attending Care Care Encounter Source Date/Time Date/Time Type Type Clinicians Facility Department ID 2022-08-06 Outpatient Kattegummul STLMLC STLMLC [id number] Common 10:34:02 a, Alireza [address]22 [facility] 2021-10-29 Outpatient Kattegummul STLMLC STLMLC [id number] Common 14:57:02 a, Alireza [facility] 2021-08-15 Outpatient Kattegummul STLMLC STLMLC [id number] Common 10:27:03 a, Alireza 55580 [facility] 2021-08-14 Outpatient Kattegummul STLMLC STLMLC [id number] Common 16:05:03 a, Alireza [facility] 2021-07-27 Outpatient Kattegummul STLMLC STLMLC [id number] Common 12:10:02 a, Alireza [facility] 2020-11-03 Outpatient POLLARD, [facility] [id number] [place] 14:00:38 [facility] 2022-03-25 2022-03-25 Outpatient DENIS [facility] [id number] [place] 13:40:00 13:40:00 [facility] 2021-11-19 2021-11-19 Office ALFONSO Ferrell 6410 [id number] [place] 11:00:00 11:57:59 Visit Aakash TONG [id number] [facility] [id number] 2021-09-14 2021-09-14 Telephone Danay Navarro 6410 1.2.84 0.114 [id number] [place] 00:00:00 00:00:00 Ramon, Jannine [address] [facility] [id number] Health [id number] 2021-09-13 2021-09-13 Telephone Danay Navarro UTP 6410 1.2.84 0.114 [id number] [place] 00:00:00 00:00:[address] [id number] Health [id number] [id number] 2 2021-09-10 2021-09-10 Telephone Danay Navraro UTP 6410 1.2.84 0.114 [id number] [place] 00:00:00 00:00:[address] [id number] Health 9.2.7.2.686 [id number] 2 2021-09-10 2021-09-10 Telephone Danay Navarro 6410 1.2.84 0.114 [id number] [place] 00:00:00 00:00:[address] [id number] Health [id number] [id number] 2 2021-08-28 2021-08-28 Telephonic ALFONSO Ferrell 6410 1.2.840.114 [id number] [place] 13:30:00 14:00:00 Encounter Aakash TONG [id number] Health 9.2.7.2.686 [id number] 2 2021-08-17 2021-08-17 Telephone Magda Hanley 1.2.840. 114 [id number] [place] 00:00:00 00:00:00 Magda Hanley [id number] Health MEDICAL 9.2.7.2.686 [place] [id number] 2021-08-09 2021-08-09 Office ALFONSO eFrrell 6410 1.2.840.114 [id number] [place] 16:00:00 16:40:00 Visit Aakash TONG [id number] Health 9.2.7.2.686 [id number] 2 2021-08-09 2021-08-09 Office Neil, ALFONSO 6410 1.2.840.114 [id number] [place] 13:30:00 14:54:[address] [id number] Health 9.2.7.2.686 [id number] 2021-08-07 2021-08-07 Telephone Tameka Ramos UTP 6410 1.2.840 .114 [id number] [place] 00:00:00 00:00:[address] [id number] Health 9.2.7.2.686 [id number] 2021-07-27 2021-07-27 [facility] [id number] [place] 00:00:00 00:00:00 VISIT TRENT gan PT LEVEL 3 - [facility] 2020-11-02 2020-11-02 Telephone Prakash Mack 6400 1.2.840.114 1 [id number] [place] 00:00:00 00:00:[address] [id number] Health 9.2.7.2.686 [id number] 2 2016-10-06 2016-10-13 [facility] [id number] Memoria 11:50:00 18:00:00 r Hector 55 l [facility] 2016-10-06 2016-10-13 Outpatient Gregorio [facility] [id number] 06:50:00 13:00:00 Hakeemwalt Crawford Lety 2016-03-08 2016-03-09 Outpt Diag nullFlavo [facility] [id number] Memoria 13:08:00 04:59:00 Services r Outpatient 00 l [facility] 2016-03-08 2016-03-08 Outpatient CORA GuillermoOIP MHOIP [id number] 08:08:00 23:59:00 Bharath Jerome 2016-01-24 2016-01-26 Inpatient nullFlavo [facility] [id number] Memoria 10:54:00 00:10:00 angélica Young 01 l [facility] 2016-01-24 2016-01-25 Outpatient MIREYA Guillermo MHSE [id number] 05:54:00 19:10:00 Bharath Jerome 2015-11-06 2015-11-15 Inpatient nullFlavo [facility] [id number] Memoria 07:18:00 01:00:00 r Hector 86 l [facility] 2015-11-06 2015-11-14 Outpatient Alysia, [facility] [id number] 02:18:00 20:00:00 Kira Wu Elisabeta 2015-06-09 2015-06-11 Inpatient nullFlavo [facility] [id number] Memoria 23:43:00 22:03:00 r [place] 36 [facility] 2015-06-09 2015-06-11 Outpatient Coco, [facility] [id number] 17:43:00 16:03:00 Slick Holm 36 2012-01-14 2012-01-15 OU nullFlavo [facility] [id number] Memoria 13:18:00 19:00:00 r [facility] 00 l [facility] Results Test Description Test Time Test Comments Results Result Comments Source CHEM PANEL 2016-10-13 10:11:00 Test Item Value Reference Range Interpretation Comme nts Glucose Lvl (test code = Glucose Lvl) 86 70-99 [facility] [id number] 10:11:00 Test Item Value Reference Range Interpretation Comments BUN (test code = BUN) 27 7-22 [facility] [id number] 10:11:00 Test Item Value Reference Range Interpretation Comments eGFR (test code = eGFR) 39 [facility] [id number] 10:11:00 Test Item Value Reference Range Interpretation Comments CO2 (test code = CO2) 26 24-32 [facility] [id number] 10:11:00 Test Item Value Reference Range Interpretation Comments Chloride Lvl (test code = Chloride Lvl) 105 95-109 [facility] [place] [id number] 10:11:00 Test Item Value Reference Range Interpretation Comments Sodium Lvl (test code = Sodium Lvl) 138 135-145 [facility] [id number] 10:11:00 Test Item Value Reference Range Interpretation Comments Calcium Lvl (test code = Calcium Lvl) 9.1 8.5-10.5 [facility] [id number] 10:11:00 Test Item Value Reference Range Interpretation Comments Creatinine Lvl (test code = Creatinine 1.79 0.50-1.40 Lvl) [facility]2017-06-11 10:11:00 Test Item Value Reference Range Interpretation Comments Potassium Lvl (test code = Potassium 4.6 3.5-5.1 Lvl) [facility]2017-06-11 10:11:00 Test Item Value Reference Range Interpretation Comments AGAP (test code = AGAP) 11.6 10.0-20.0 [id number] 10:11:00 Test Item Value Reference Range Interpretation Comments MCH (test code = MCH) 31.5 pg 27.0-31.0 [id number] 10:11:00 Test Item Value Reference Range Interpretation Comments MCHC (test code = MCHC) 34.1 32.0-36.0 [id number] 10:11:00 Test Item Value Reference Range Interpretation Comments RDW (test code = RDW) 15.6 11.5-14.5 [id number] 10:11:00 Test Item Value Reference Range Interpretation Comments Platelet (test code = Platelet) 180 133-450 [facility]LLFVUFZVER2218-72-48 10:11:00 Test Item Value Reference Range Interpretation Comments MPV (test code = MPV) 8.5 7.4-10.4 [facility]XahnsrbFKFIMQORGT2308-24-54 10:11:00 Test Item Value Reference Range Interpretation Comments Hgb (test code = Hgb) 12.2 14.0-18.0 [facility] HospitalFgjvnjgJOGPOKGXIR3933-93-44 10:11:00 Test Item Value Reference Range Interpretation Comments Hct (test code = Hct) 35.7 42.0-54.0 [facility] HospitalSgffgukKSQGFFTVTC6509-27-89 10:11:00 Test Item Value Reference Range Interpretation Comments MCV (test code = MCV) 92.2 80.0-94.0 [facility] HospitalTvcuxoqOIMFMBIOUL6348-63-00 10:11:00 Test Item Value Reference Range Interpretation Comments WBC X 10x3 (test code = WBC X 10x3) 10.7 3.7-10.4 [facility] HospitalYjaheicTNNHPKVXWP2187-30-85 10:11:00 Test Item Value Reference Range Interpretation Comments RBC X 10x6 (test code = RBC X 10x6) 3.87 4.70-6.10 [facility] HospitalXcnercuENDREHSLXH5659-66-96 10:11:00 Test Item Value Reference Range Interpretation Comments Basophils (test code = 0.7 See_Comment [Aut omated message] The Basophils) system which ge nerated this result tra nsmitted reference range : <=1.0. The reference r lala was not used to int erpret this result as normal/abnormal . [facility] HospitalXmtiozeTQANJKRHPD8588-03-60 10:11:00 Test Item Value Reference Range Interpretation Comments Segs-Bands # (test code = Segs-Bands #) 7.1 1.5-8.1 [facility] HospitalFfxksxdUJBGKTUTEF7161-75-98 10:11:00 Test Item Value Reference Range Interpretation Comments Lymphocytes # (test code = Lymphocytes 1.5 1.0-5.5 #) [facility] HospitalRfhyamkDQYKXOIPIY7791-84-58 10:11:00 Test Item Value Reference Range Interpretation Comments Monocytes # (test code 0.6 See_Comment [Aut omated message] The = Monocytes #) system which generated this result tra nsmitted reference range : <=0.8. The reference r lala was not used to int erpret this result as normal/abnormal . [facility] HospitalEjrnprbIAJUDKWJWM3400-87-35 10:11:00 Test Item Value Reference Range Interpretation Comments Segs (test code = Segs) 73.4 45.0-75.0 [facility] HospitalBtjvalsYQKEFJONQB2435-82-68 10:11:00 Test Item Value Reference Range Interpretation Comments Lymphocytes (test code = Lymphocytes) 15.2 20.0-40.0 [facility] HospitalXnnmbbkEMJETYYRXL3067-50-27 10:11:00 Test Item Value Reference Range Interpretation Comments Monocytes (test code = Monocytes) 6.4 2.0-12.0 [facility] HospitalYplsopoRYLGDXIUZV3847-53-32 10:11:00 Test Item Value Reference Range Interpretation Comments Eosinophils (test code = 4.3 See_Comment [A utomated message] The Eosinophils) system which ge nerated this result tra nsmitted reference range : <=4.0. The reference r lala was not used to int erpret this result as normal/abnormal . [facility] HospitalNswhznnXKVLVQAZYU5557-60-17 10:11:00 Test Item Value Reference Range Interpretation Comments Eosinophils # (test code 0.4 See_Comment [A utomated message] The = Eosinophils #) system whic h generated this result tra nsmitted reference range : <=0.5. The reference r lala was not used to int erpret this result as normal/abnormal . [facility] HospitalAialzonWIIWGGGKLO4924-49-98 10:11:00 Test Item Value Reference Range Interpretation Comments Basophils # (test code 0.1 See_Comment [Aut omated message] The = Basophils #) system which generated this result tra nsmitted reference range : <=0.2. The reference r lala was not used to int erpret this result as normal/abnormal . [facility]2017-06-10 10:27:00 Test Item Value Reference Range Interpretation Comments eGFR (test code = eGFR) 37 [facility]2017-06-10 10:27:00 Test Item Value Reference Range Interpretation Comments Creatinine Lvl (test code = Creatinine 1.85 0.50-1.40 Lvl) [facility]2017-06-10 10:27:00 Test Item Value Reference Range Interpretation Comments Sodium Lvl (test code = Sodium Lvl) 137 135-145 [facility]2017-06-10 10:27:00 Test Item Value Reference Range Interpretation Comments BUN (test code = BUN) 31 7-22 [facility]2017-06-10 10:27:00 Test Item Value Reference Range Interpretation Comments Glucose Lvl (test code = Glucose Lvl) 89 70-99 [facility]2017-06-10 10:27:00 Test Item Value Reference Range Interpretation Comments Calcium Lvl (test code = Calcium Lvl) 9.2 8.5-10.5 [facility]2017-06-10 10:27:00 Test Item Value Reference Range Interpretation Comments Potassium Lvl (test code = Potassium 4.2 3.5-5.1 Lvl) [facility]2017-06-10 10:27:00 Test Item Value Reference Range Interpretation Comments Chloride Lvl (test code = Chloride Lvl) 103 95-109 [facility]2017-06-10 10:27:00 Test Item Value Reference Range Interpretation Comments CO2 (test code = CO2) 25 24-32 [facility]2017-06-10 10:27:00 Test Item Value Reference Range Interpretation Comments AGAP (test code = AGAP) 13.2 10.0-20.0 [facility] HospitalXjvbxjeUWIQBVBAJV2798-47-60 10:27:00 Test Item Value Reference Range Interpretation Comments Eosinophils (test code = 4.5 See_Comment [A utomated message] The Eosinophils) system which ge nerated this result tra nsmitted reference range : <=4.0. The reference r lala was not used to int erpret this result as normal/abnormal . [facility] HospitalMkjyfluWJLGLSUJLZ3421-58-00 10:27:00 Test Item Value Reference Range Interpretation Comments Basophils (test code = 0.6 See_Comment [Aut omated message] The Basophils) system which ge nerated this result tra nsmitted reference range : <=1.0. The reference r lala was not used to int erpret this result as normal/abnormal . [facility] HospitalYmepekoIDJRBPGVYP1296-82-38 10:27:00 Test Item Value Reference Range Interpretation Comments Lymphocytes # (test code = Lymphocytes 1.5 1.0-5.5 #) [facility] HospitalBybzcgeFTUAQWIFQH0531-41-66 10:27:00 Test Item Value Reference Range Interpretation Comments Monocytes # (test code 0.7 See_Comment [Aut omated message] The = Monocytes #) system which generated this result tra nsmitted reference range : <=0.8. The reference r lala was not used to int erpret this result as normal/abnormal . [facility] HospitalWiobripJKWCEXRELG8482-50-73 10:27:00 Test Item Value Reference Range Interpretation Comments Monocytes (test code = Monocytes) 6.0 2.0-12.0 [facility] HospitalKaaioiwTQXUCPTAZR7200-93-51 10:27:00 Test Item Value Reference Range Interpretation Comments Segs (test code = Segs) 75.3 45.0-75.0 [facility] HospitalIkxrnvpREEVYVSKSG2768-29-24 10:27:00 Test Item Value Reference Range Interpretation Comments Lymphocytes (test code = Lymphocytes) 13.6 20.0-40.0 [facility] HospitalXpgdmcfKPTBXMCUCR4867-15-04 10:27:00 Test Item Value Reference Range Interpretation Comments Segs-Bands # (test code = Segs-Bands #) 8.3 1.5-8.1 [facility] HospitalFbswrueVHTHRSJSMG7951-68-58 10:27:00 Test Item Value Reference Range Interpretation Comments Basophils # (test code 0.1 See_Comment [Aut omated message] The = Basophils #) system which generated this result tra nsmitted reference range : <=0.2. The reference r lala was not used to int erpret this result as normal/abnormal . [facility] HospitalGvhhivdQHLZDSATOM5306-75-51 10:27:00 Test Item Value Reference Range Interpretation Comments Eosinophils # (test code 0.5 See_Comment [A utomated message] The = Eosinophils #) system whic h generated this result tra nsmitted reference range : <=0.5. The reference r lala was not used to int erpret this result as normal/abnormal . [facility] HospitalCejemvpRYVILAWXVG6951-40-16 10:27:00 Test Item Value Reference Range Interpretation Comments MCV (test code = MCV) 92.7 80.0-94.0 [facility] HospitalMlmbafnFABJAKSGZA1976-50-91 10:27:00 Test Item Value Reference Range Interpretation Comments MCH (test code = MCH) 31.3 pg 27.0-31.0 [facility] HospitalEazdfqmRJENJYMFFN1605-91-02 10:27:00 Test Item Value Reference Range Interpretation Comments MCHC (test code = MCHC) 33.8 32.0-36.0 [facility] HospitalLwmgknqUKCJPCTFOA4262-62-63 10:27:00 Test Item Value Reference Range Interpretation Comments RDW (test code = RDW) 15.5 11.5-14.5 [facility] HospitalMibjhdkNQBDOAWRDR9231-49-42 10:27:00 Test Item Value Reference Range Interpretation Comments MPV (test code = MPV) 8.3 7.4-10.4 [facility] HospitalCljbdylQBVSFDEYFB9797-35-08 10:27:00 Test Item Value Reference Range Interpretation Comments Platelet (test code = Platelet) 187 133-450 [facility] HospitalNphidmkTUCNCTSKDU4567-23-52 10:27:00 Test Item Value Reference Range Interpretation Comments Hgb (test code = Hgb) 11.7 14.0-18.0 [facility] HospitalStpakaiMDFEXBOYJP3182-07-22 10:27:00 Test Item Value Reference Range Interpretation Comments Hct (test code = Hct) 34.6 42.0-54.0 [facility] HospitalPxocqxfKJRBTZOIZB9468-69-11 10:27:00 Test Item Value Reference Range Interpretation Comments RBC (test code = RBC) 3.73 4.70-6.10 [facility] HospitalRvubahxFHQWPRMLPK4031-85-54 10:27:00 Test Item Value Reference Range Interpretation Comments WBC (test code = WBC) 11.1 3.7-10.4 [facility]hip[facility]QJEKCTXVNYX7446[facility]83 09:07:00 Test Item Value Reference Range Interpretation Comments Potassium Lvl (test code = Potassium 3.9 3.5-5.1 Lvl) [facility]TbpuhliPBCNLGSYWXYU2296-35-76 09:07:00 Test Item Value Reference Range Interpretation Comments Chloride Lvl (test code = Chloride Lvl) 104 95-109 [facility]WheiasuXMEHSFRXDOVD5717-22-98 09:07:00 Test Item Value Reference Range Interpretation Comments Creatinine Lvl (test code = Creatinine 2.23 0.50-1.40 Lvl) [facility]VvwuqfoOZNUXWEHKGSZ7888-90-53 09:07:00 Test Item Value Reference Range Interpretation Comments Sodium Lvl (test code = Sodium Lvl) 137 135-145 [facility]UceqwmuUFGVLNPOCJSN0541-24-24 09:07:00 Test Item Value Reference Range Interpretation Comments CO2 (test code = CO2) 24 24-32 [facility]WzfeoiuGKRQYNAMFHJE9519-42-42 09:07:00 Test Item Value Reference Range Interpretation Comments AGAP (test code = AGAP) 12.9 10.0-20.0 [facility] OaklandRkpfvahBSAJVKSHGPVS9942-71-00 09:07:00 Test Item Value Reference Range Interpretation Comments Calcium Lvl (test code = Calcium Lvl) 8.5 8.5-10.5 [facility]CfbjqxcIMNPNGHGPMYW1317-51-65 09:07:00 Test Item Value Reference Range Interpretation Comments eGFR (test code = eGFR) 30 [facility]YlgadlcRSJLDKGWQLFV7757-74-46 09:07:00 Test Item Value Reference Range Interpretation Comments Glucose Lvl (test code = Glucose Lvl) 107 70-99 [facility] OaklandThmmddjOKSUUNECAMLF8631-98-03 09:07:00 Test Item Value Reference Range Interpretation Comments BUN (test code = BUN) 35 7-22 [facility] HospitalEjrbifkNYMTOGJYJQ6562-42-10 09:07:00 Test Item Value Reference Range Interpretation Comments Lymphocytes # (test code = Lymphocytes 1.6 1.0-5.5 #) [facility] HospitalEcaphwkGNMMKLZBGG1276-66-42 09:07:00 Test Item Value Reference Range Interpretation Comments Monocytes # (test code 0.8 See_Comment [Aut omated message] The = Monocytes #) system which generated this result tra nsmitted reference range : <=0.8. The reference r lala was not used to int erpret this result as normal/abnormal . [facility] HospitalMkysnolPWBONRPQZT3607-19-24 09:07:00 Test Item Value Reference Range Interpretation Comments Eosinophils # (test code 0.4 See_Comment [A utomated message] The = Eosinophils #) system wh h generated this result tra nsmitted reference range : <=0.5. The reference r lala was not used to int erpret this result as normal/abnormal . [facility] HospitalXnnoslxDTFEAEMTYI1210-55-30 09:07:00 Test Item Value Reference Range Interpretation Comments Basophils # (test code 0.1 See_Comment [Aut omated message] The = Basophils #) system which generated this result tra nsmitted reference range : <=0.2. The reference r lala was not used to int erpret this result as normal/abnormal . [facility] HospitalQvqxuowXOVZASDSZT1390-14-05 09:07:00 Test Item Value Reference Range Interpretation Comments Lymphocytes (test code = Lymphocytes) 13.9 20.0-40.0 [facility] HospitalCeoiqmfMFBUZETGXK9114-68-81 09:07:00 Test Item Value Reference Range Interpretation Comments Monocytes (test code = Monocytes) 7.1 2.0-12.0 [facility] HospitalBngzutxCFIRUYPSNV1259-21-00 09:07:00 Test Item Value Reference Range Interpretation Comments Eosinophils (test code = 3.7 See_Comment [A utomated message] The Eosinophils) system which ge nerated this result tra nsmitted reference range : <=4.0. The reference r lala was not used to int erpret this result as normal/abnormal . [facility] HospitalVbetcvdKOOJVPGFEA8788-23-42 09:07:00 Test Item Value Reference Range Interpretation Comments Basophils (test code = 0.9 See_Comment [Aut omated message] The Basophils) system which ge nerated this result tra nsmitted reference range : <=1.0. The reference r lala was not used to int erpret this result as normal/abnormal . [facility] HospitalKeeadowZBIAYKYLLQ9105-03-15 09:07:00 Test Item Value Reference Range Interpretation Comments Segs-Bands # (test code = Segs-Bands #) 8.8 1.5-8.1 [facility] HospitalCsiykivGSICAUQTBN5843-01-75 09:07:00 Test Item Value Reference Range Interpretation Comments Segs (test code = Segs) 74.4 45.0-75.0 [facility] HospitalZnimsarDQEWPWSOTY0084-22-11 09:07:00 Test Item Value Reference Range Interpretation Comments Hct (test code = Hct) 32.6 42.0-54.0 [facility] HospitalEdupuirRHGQWFJCNU0824-65-48 09:07:00 Test Item Value Reference Range Interpretation Comments WBC (test code = WBC) 11.8 3.7-10.4 [facility] HospitalYtnsxekAWVKLKAMYN4785-39-88 09:07:00 Test Item Value Reference Range Interpretation Comments Hgb (test code = Hgb) 11.3 14.0-18.0 [facility] HospitalFgnqcwhIUJIOCGSPC0678-92-21 09:07:00 Test Item Value Reference Range Interpretation Comments RBC (test code = RBC) 3.54 4.70-6.10 [facility] HospitalCqpdoroLEWKYHWBDK9700-24-62 09:07:00 Test Item Value Reference Range Interpretation Comments MCV (test code = MCV) 92.2 80.0-94.0 [facility] HospitalHofmexcZBQYLRDMUV7686-12-98 09:07:00 Test Item Value Reference Range Interpretation Comments MCH (test code = MCH) 31.9 pg 27.0-31.0 [facility] HospitalIswlynlNAPDQGLVFY5136-73-34 09:07:00 Test Item Value Reference Range Interpretation Comments MCHC (test code = MCHC) 34.6 32.0-36.0 [facility] HospitalCdqzigeSWTLAHLAKP1127-99-62 09:07:00 Test Item Value Reference Range Interpretation Comments RDW (test code = RDW) 15.6 11.5-14.5 [facility] HospitalYkmnnnlCBXEALSVRE5102-95-56 09:07:00 Test Item Value Reference Range Interpretation Comments Platelet (test code = Platelet) 164 133-450 [facility] HospitalEpudqhnXBOARMCXIY9105-37-23 09:07:00 Test Item Value Reference Range Interpretation Comments MPV (test code = MPV) 8.2 7.4-10.4 [facility] ZFETW7649-60-02 09:33:00 Test Item Value Reference Range Interpretation Comments Phosphorus (test code = Phosphorus) 3.5 2.5-4.5 [facility]2017-06-08 09:33:00 Test Item Value Reference Range Interpretation Comments Magnesium Lvl (test code = Magnesium 2.5 1.8-2.4 Lvl) [facility] [employer] BOXMDXO7015-51-09 05:59:00 Test Item Value Reference Range Interpretation Comments Antibody Scrn (test Negative (10/09/16 12:59 code = Antibody Scrn) AM) [facility] [employer] QGPXZOS7660-36-32 05:59:00 Test Item Value Reference Range Interpretation Comments ABO/Rh (test code = ABO/Rh) O POS [facility] [employer] KFPGBWS8711-06-50 05:59:00 Test Item Value Reference Range Interpretation Comments Troponin-I (test code 0.02 See_Comment [Auto mated message] The = Troponin-I) system which g enerated this result transmit cecelia reference range : <=0.40. The reference r lala was not used to interpr et this result as peyton l/abnormal. [facility]2017-06-07 05:59:00 Test Item Value Reference Range Interpretation Comments Magnesium Lvl (test code = Magnesium 2.5 1.8-2.4 Lvl) [facility] [employer]2017-06-07 05:59:00 Test Item Value Reference Range Interpretation Comments Phosphorus (test code = Phosphorus) 3.5 2.5-4.5 [facility] [employer]2017-06-07 02:41:00 Test Item Value Reference Range Interpretation Comments Troponin-I (test code 0.02 See_Comment [Auto mated message] The = Troponin-I) system which g enerated this result transmit cecelia reference range : <=0.40. The reference r lala was not used to interpr et this result as peyton l/abnormal. [facility] [employer]ROID RTTMGKQ5576-92-10 22:24:00 Test Item Value Reference Range Interpretation Comments Ca Norm WB (test code = Ca Norm WB) 1.05 1.05-1.25 [facility] [employer]2017-06-06 22:24:00 Test Item Value Reference Range Interpretation Comments Ca Ion WB (test code = Ca Ion WB) 1.05 1.05-1.25 [facility]2017-06-06 07:59:00 Test Item Value Reference Range Interpretation Comments Phosphorus (test code = Phosphorus) 3.2 2.5-4.5 [facility] [employer] [id number] 07:59:00 Test Item Value Reference Range Interpretation Comments Magnesium Lvl (test code = Magnesium 2.4 1.8-2.4 Lvl) [facility] [id number] 06:42:00 Test Item Value Reference Range Interpretation Comments Ca Norm WB (test code = Ca Norm WB) 1.14 1.05-1.25 [facility]aleannPARATHYROID [id number] 06:42:00 Test Item Value Reference Range Interpretation Comments Ca Ion WB (test code = Ca Ion WB) 1.15 1.05-1.25 [facility] XumiiCARDIAC [id number] 20:35:00 Test Item Value Reference Range Interpretation Comments Troponin-I (test code 0.05 See_Comment [Auto mated message] The = Troponin-I) system which g enerated this result transmit cecelia reference range : <=0.40. The reference r lala was not used to interpr et this result as peyton l/abnormal. [facility]ale[facility] [id number] 13:19:00 Test Item Value Reference Range Interpretation Comments BNP (test code = BNP) 569 [facility] [employer] [id number] 13:19:00 Test Item Value Reference Range Interpretation Comments Albumin Lvl (test code = Albumin Lvl) 3.8 3.5-5.0 [facility] [employer] [id number] 13:19:00 Test Item Value Reference Range Interpretation Comments ALT (test code = ALT) 22 See_Comment [Auto mated message] The system which ge nerated this result transmit cecleia reference range : <=65. The reference range was not used to interpr et this result as peyton l/abnormal. [facility] [employer] [id number] 13:19:00 Test Item Value Reference Range Interpretation Comments Alk Phos (test code = Alk Phos) 115 39-136 [facility] [id number] 13:19:00 Test Item Value Reference Range Interpretation Comments AST (test code = AST) 10 See_Comment [Auto mated message] The system which ge nerated this result transmit cecelia reference range : <=37. The reference range was not used to interpr et this result as peyton l/abnormal. [facility] [id number] 13:19:00 Test Item Value Reference Range Interpretation Comments Total Protein (test code = Total 8.0 6.4-8.4 Protein) [facility] [id number] 13:19:00 Test Item Value Reference Range Interpretation Comments Bili Total (test code = Bili Total) 0.6 0.2-1.3 [facility] [id number] 13:19:00 Test Item Value Reference Range Interpretation Comments B/C Ratio (test code = B/C Ratio) 12 6-25 [facility] [id number] 13:19:00 Test Item Value Reference Range Interpretation Comments A/G Ratio (test code = A/G Ratio) 0.9 0.7-1.6 [facility]2017-06-04 13:19:00 Test Item Value Reference Range Interpretation Comments Globulin (test code = Globulin) 4.2 2.7-4.2 [facility] HospitalPsjuzodSRPZIAAKBE2842-49-27 13:19:00 Test Item Value Reference Range Interpretation Comments PTT (test code = PTT) 33.9 s 22.9-35.8 [facility]YS[facility]NSZN5685[facility]-42 13:19:00 Test Item Value Reference Range Interpretation Comments INR (test code = INR) 1.35 0.85-1.17 [facility]HgxkjboOMACEMQYXZ2393-01-15 13:19:00 Test Item Value Reference Range Interpretation Comments PT (test code = PT) 16.9 s 12.0-14.7 [facility] [id number] 00:34:13 Test Item Value Reference Range Interpretation Comments BNP (test code = BNP) 533 [facility] [id number] 20:40:00 Test Item Value Reference Range Interpretation Comments Calcium Lvl (test code = Calcium Lvl) 8.3 8.5-10.5 [facility] [id number] 20:40:00 Test Item Value Reference Range Interpretation Comments CO2 (test code = CO2) 29 24-32 [facility] [id number] 20:40:00 Test Item Value Reference Range Interpretation Comments AGAP (test code = AGAP) 9.6 10.0-20.0 [facility]2016-09-22 20:40:00 Test Item Value Reference Range Interpretation Comments Chloride Lvl (test code = Chloride Lvl) 104 95-109 [facility]2016-09-22 20:40:00 Test Item Value Reference Range Interpretation Comments BUN (test code = BUN) 20 7-22 [facility]2016-09-22 20:40:00 Test Item Value Reference Range Interpretation Comments Glucose Lvl (test code = Glucose Lvl) 168 70-99 [facility]2016-09-22 20:40:00 Test Item Value Reference Range Interpretation Comments Creatinine Lvl (test code = Creatinine 2.33 0.50-1.40 Lvl) [facility]2016-09-22 20:40:00 Test Item Value Reference Range Interpretation Comments Potassium Lvl (test code = Potassium 3.6 3.5-5.1 Lvl) [facility]2016-09-22 20:40:00 Test Item Value Reference Range Interpretation Comments Sodium Lvl (test code = Sodium Lvl) 139 135-145 [facility]2016-09-22 20:40:00 Test Item Value Reference Range Interpretation Comments eGFR (test code = eGFR) 28 [facility]OzyteabXRXXPRJZDACQ4394-05-93 22:52:00 Test Item Value Reference Range Interpretation Comments AGAP (test code = AGAP) 11.1 10.0-20.0 [facility] OaklandGrguoqfMXYQOEBVLXEL3007-02-61 22:52:00 Test Item Value Reference Range Interpretation Comments Calcium Lvl (test code = Calcium Lvl) 7.8 8.5-10.5 [facility] OaklandHnopfdcPQYWWIPVFYRV6505-75-38 22:52:00 Test Item Value Reference Range Interpretation Comments Chloride Lvl (test code = Chloride Lvl) 104 95-109 [facility] OaklandBurjvjjJKLYTIFUCVXI8258-03-10 22:52:00 Test Item Value Reference Range Interpretation Comments CO2 (test code = CO2) 27 24-32 [facility] OaklandAeunsttWIWDPLGOBHXS1674-20-46 22:52:00 Test Item Value Reference Range Interpretation Comments Sodium Lvl (test code = Sodium Lvl) 139 135-145 [facility] OaklandUfoduidCHDNWATKKXQK6857-77-66 22:52:00 Test Item Value Reference Range Interpretation Comments Potassium Lvl (test code = Potassium 3.1 3.5-5.1 Lvl) [facility] OaklandFvvtohtUVXWIUCOMROV8906-51-75 22:52:00 Test Item Value Reference Range Interpretation Comments eGFR (test code = eGFR) 35 [facility] OaklandRfonqcgDBNJMYDKJOOG1051-52-14 22:52:00 Test Item Value Reference Range Interpretation Comments Glucose Lvl (test code = Glucose Lvl) 131 70-99 [facility] OaklandLuyekpnAMTVFXDZKLFG4921-09-50 22:52:00 Test Item Value Reference Range Interpretation Comments BUN (test code = BUN) 22 7-22 [facility] OaklandLnumurfRLOEWHEJLFKA5890-83-93 22:52:00 Test Item Value Reference Range Interpretation Comments Creatinine Lvl (test code = Creatinine 1.96 0.50-1.40 Lvl) [facility] HospitalXagffajHIZJMRRMQD6482-20-66 22:52:00 Test Item Value Reference Range Interpretation Comments Basophils (test code = 1.0 See_Comment [Aut omated message] The Basophils) system which ge nerated this result tra nsmitted reference range : <=1.0. The reference r lala was not used to int erpret this result as normal/abnormal . [facility] HospitalMnbnzjfJHGDAPFJRE6375-88-24 22:52:00 Test Item Value Reference Range Interpretation Comments Monocytes (test code = Monocytes) 4.2 2.0-12.0 [facility] HospitalHtmyqcnZLXLBJPCVX9990-11-33 22:52:00 Test Item Value Reference Range Interpretation Comments Eosinophils (test code = 4.1 See_Comment [A utomated message] The Eosinophils) system which ge nerated this result tra nsmitted reference range : <=4.0. The reference r lala was not used to int erpret this result as normal/abnormal . [facility] HospitalIpnubcxHYPTGWZDPN7377-21-89 22:52:00 Test Item Value Reference Range Interpretation Comments Segs (test code = Segs) 74.5 45.0-75.0 [facility] HospitalZpsrcgzZMPYKUFXMF8069-14-78 22:52:00 Test Item Value Reference Range Interpretation Comments Lymphocytes (test code = Lymphocytes) 16.2 20.0-40.0 [facility]LimgwrqWSMXXWGFZO1831-72-60 22:52:00 Test Item Value Reference Range Interpretation Comments Basophils # (test code 0.1 See_Comment [Aut omated message] The = Basophils #) system which generated this result tra nsmitted reference range : <=0.2. The reference r lala was not used to int erpret this result as normal/abnormal . [facility] HospitalPxdgsrkEJUPEZXOMP6618-25-33 22:52:00 Test Item Value Reference Range Interpretation Comments Eosinophils # (test code 0.5 See_Comment [A utomated message] The = Eosinophils #) system whic h generated this result tra nsmitted reference range : <=0.5. The reference r lala was not used to int erpret this result as normal/abnormal . [facility] HospitalWcpacoxLPJCZSZLTW5692-07-28 22:52:00 Test Item Value Reference Range Interpretation Comments Monocytes # (test code 0.5 See_Comment [Aut omated message] The = Monocytes #) system which generated this result tra nsmitted reference range : <=0.8. The reference r lala was not used to int erpret this result as normal/abnormal . [facility] HospitalAbblkdkYNWKUXBOER2334-85-99 22:52:00 Test Item Value Reference Range Interpretation Comments Segs-Bands # (test code = Segs-Bands #) 8.4 1.5-8.1 [facility] HospitalUtgnmjgPXJRBBQLEQ1231-04-17 22:52:00 Test Item Value Reference Range Interpretation Comments Lymphocytes # (test code = Lymphocytes 1.8 1.0-5.5 #) [facility] HospitalOaqzqldNVCNUAXFSL9075-25-35 22:52:00 Test Item Value Reference Range Interpretation Comments MPV (test code = MPV) 8.1 7.4-10.4 [facility] HospitalUkxmxakZFJZOPHBNC5863-38-08 22:52:00 Test Item Value Reference Range Interpretation Comments MCH (test code = MCH) 31.2 pg 27.0-31.0 [facility] HospitalXxkwcfvHAYMIWXDSO4039-43-61 22:52:00 Test Item Value Reference Range Interpretation Comments Platelet (test code = Platelet) 210 133-450 [facility] HospitalOeeztvqPBUZRBHBOY8762-46-86 22:52:00 Test Item Value Reference Range Interpretation Comments MCHC (test code = MCHC) 34.9 32.0-36.0 [facility] HospitalUujdyahUCMZVDIDDM3204-94-88 22:52:00 Test Item Value Reference Range Interpretation Comments MCV (test code = MCV) 89.6 80.0-94.0 [facility] HospitalMcxlqttQILENEYBBK6467-07-31 22:52:00 Test Item Value Reference Range Interpretation Comments RDW (test code = RDW) 14.3 11.5-14.5 [facility] UwyqiwuMOIEGXVRYU7868-68-85 22:52:00 Test Item Value Reference Range Interpretation Comments WBC (test code = WBC) 11.3 3.7-10.4 [facility]aleQnnrzukAQFACAXDXG7441-48-72 22:52:00 Test Item Value Reference Range Interpretation Comments Hct (test code = Hct) 31.7 42.0-54.0 [facility]aleLrslquvHAJQCYLVWZ3583-42-24 22:52:00 Test Item Value Reference Range Interpretation Comments RBC (test code = RBC) 3.54 4.70-6.10 [facility] VheduvwCPKVOCMZTT1139-44-76 22:52:00 Test Item Value Reference Range Interpretation Comments Hgb (test code = Hgb) 11.0 14.0-18.0 [facility] Sunny[facility]aleShareYourCartBACTERIAL - CDYRXMWM0114-48-86 21:19:00 Test Item Value Reference Range Interpretation Comments MRSA by PCR (test Negative (01/24/16 4:19 code = MRSA by PCR) PM) [facility] VNLYKTG1110-98-59 16:02:00 Test Item Value Reference Range Interpretation Comments RBC product (test code Product available = RBC product) 1(01/24/16 11:02 AM) [facility] FhxuhpvIUORKOQDKRQZ9831-86-87 12:19:00 Test Item Value Reference Range Interpretation Comments Potassium Lvl (test code = Potassium 3.0 3.5-5.1 Lvl) [facility]aleOmqcvtdOMUCCWANBJ3144-59-51 12:19:00 Test Item Value Reference Range Interpretation Comments INR (test code = INR) 1.28 0.85-1.17 [facility] NpdfhvtCZWDFKKRXG3708-93-12 12:19:00 Test Item Value Reference Range Interpretation Comments PT (test code = PT) 16.3 s 12.0-14.7 [facility] GHNSDDV0311-16-48 17:50:00 Test Item Value Reference Range Interpretation Comments Antibody Scrn (test Negative (01/17/16 code = Antibody Scrn) 12:50 PM) [facility] GZVQIIY8733-26-50 17:50:00 Test Item Value Reference Range Interpretation Comments ABO/Rh (test code = ABO/Rh) O POS [facility]vgiqlZUTJJSIEPQMX7886-27-04 17:50:00 Test Item Value Reference Range Interpretation Comments AGAP (test code = AGAP) 10.2 10.0-20.0 [facility] OaklandGdccxkfIHQPVNFYXFWG8332-31-43 17:50:00 Test Item Value Reference Range Interpretation Comments eGFR (test code = eGFR) 28 [facility] OaklandLsddwkuHMSPKZABZIME2950-51-76 17:50:00 Test Item Value Reference Range Interpretation Comments BUN (test code = BUN) 31 7-22 [facility] OaklandHyknixjFXQWDWHWZQUQ4909-21-66 17:50:00 Test Item Value Reference Range Interpretation Comments Creatinine Lvl (test code = Creatinine 2.37 0.50-1.40 Lvl) [facility] OaklandIomcqdvGAQYZWMNKZZQ7715-39-23 17:50:00 Test Item Value Reference Range Interpretation Comments Sodium Lvl (test code = Sodium Lvl) 137 135-145 [facility] OaklandPopbvgqHYILQVQNIJNK2894-47-21 17:50:00 Test Item Value Reference Range Interpretation Comments Chloride Lvl (test code = Chloride Lvl) 99 95-109 [facility] OaklandWqivfqtEUOHPLFYBAFK6722-54-36 17:50:00 Test Item Value Reference Range Interpretation Comments Calcium Lvl (test code = Calcium Lvl) 8.9 8.5-10.5 [facility] OaklandGgrxwbtHWTWFVHDLHMV6344-79-83 17:50:00 Test Item Value Reference Range Interpretation Comments CO2 (test code = CO2) 31 24-32 [facility] OaklandFukbgahWASYOSFJXDQU9608-79-37 17:50:00 Test Item Value Reference Range Interpretation Comments Glucose Lvl (test code = Glucose Lvl) 150 70-99 [facility] HospitalRhblistBHYXLMBBUO0074-57-71 17:50:00 Test Item Value Reference Range Interpretation Comments PTT (test code = PTT) 50.2 s 22.9-35.8 [facility] HospitalTzmdwwpBIVBRTRSGI7818-93-71 17:50:00 Test Item Value Reference Range Interpretation Comments MCHC (test code = MCHC) 34.7 32.0-36.0 [facility] HospitalHqqduiwANNEBLJNIY5579-83-08 17:50:00 Test Item Value Reference Range Interpretation Comments RDW (test code = RDW) 13.9 11.5-14.5 [facility] HospitalQipuhgrTTSQRUSCYM8107-96-17 17:50:00 Test Item Value Reference Range Interpretation Comments Hgb (test code = Hgb) 12.2 14.0-18.0 [facility] HospitalWezyirjQPYTTNYKNC9773-29-83 17:50:00 Test Item Value Reference Range Interpretation Comments Hct (test code = Hct) 35.2 42.0-54.0 [facility] HospitalRdhfkygYYYCWHGDJP8853-94-44 17:50:00 Test Item Value Reference Range Interpretation Comments MPV (test code = MPV) 8.4 7.4-10.4 [facility] HospitalXygttzyKDVKTQDIAK8600-30-50 17:50:00 Test Item Value Reference Range Interpretation Comments Platelet (test code = Platelet) 249 133-450 [facility] HospitalMngpiyyBONVCTWQMD1067-41-75 17:50:00 Test Item Value Reference Range Interpretation Comments MCH (test code = MCH) 31.0 pg 27.0-31.0 [facility] HospitalUufgwhrGKCPIUFSPX3972-42-93 17:50:00 Test Item Value Reference Range Interpretation Comments MCV (test code = MCV) 89.6 80.0-94.0 [facility] HospitalSypyrykYVLRSQSBJP1939-42-56 17:50:00 Test Item Value Reference Range Interpretation Comments WBC (test code = WBC) 11.8 3.7-10.4 [facility] HospitalHpnerwgFDFPOERWIY9427-92-38 17:50:00 Test Item Value Reference Range Interpretation Comments RBC (test code = RBC) 3.93 4.70-6.10 [facility] HospitalBziamgwUCFBLMMRLM3468-35-98 17:50:00 Test Item Value Reference Range Interpretation Comments INR (test code = INR) 1.73 0.85-1.17 [facility] HospitalYhggfejBSBIHVXQCV5124-41-17 17:50:00 Test Item Value Reference Range Interpretation Comments PT (test code = PT) 20.6 s 12.0-14.7 [facility] HospitalIntimdqZDFJFOADII2547-50-04 17:50:00 Test Item Value Reference Range Interpretation Comments Basophils # (test code 0.1 See_Comment [Aut omated message] The = Basophils #) system which generated this result tra nsmitted reference range : <=0.2. The reference r lala was not used to int erpret this result as normal/abnormal . [facility] HospitalQsoizejCUGTKXDQKL4451-18-59 17:50:00 Test Item Value Reference Range Interpretation Comments Basophils (test code = 0.7 See_Comment [Aut omated message] The Basophils) system which ge nerated this result tra nsmitted reference range : <=1.0. The reference r lala was not used to int erpret this result as normal/abnormal . [facility] HospitalYvbbvjkKGCOWOUYJH1698-95-75 17:50:00 Test Item Value Reference Range Interpretation Comments Monocytes (test code = Monocytes) 6.2 2.0-12.0 [facility] HospitalCuqewpkBWGCBYYSDY2611-10-83 17:50:00 Test Item Value Reference Range Interpretation Comments Lymphocytes (test code = Lymphocytes) 18.2 20.0-40.0 [facility] HospitalDylwosmDRYZHMEZNW3712-03-45 17:50:00 Test Item Value Reference Range Interpretation Comments Eosinophils (test code = 4.1 See_Comment [A utomated message] The Eosinophils) system which ge nerated this result tra nsmitted reference range : <=4.0. The reference r lala was not used to int erpret this result as normal/abnormal . [facility] HospitalFddjqeoKTKYXHAMUJ4905-56-73 17:50:00 Test Item Value Reference Range Interpretation Comments Segs (test code = Segs) 70.8 45.0-75.0 [facility] HospitalUvjxojkCDQFWMDXQQ5000-97-42 17:50:00 Test Item Value Reference Range Interpretation Comments Eosinophils # (test code 0.5 See_Comment [A utomated message] The = Eosinophils #) system [facility] generated this result tra nsmitted reference range : <=0.5. The reference r lala was not used to int erpret this result as normal/abnormal . [facility] HospitalJmgkbihUIKDEAVUJQ0922-53-80 17:50:00 Test Item Value Reference Range Interpretation Comments Monocytes # (test code 0.7 See_Comment [Aut omated message] The = Monocytes #) system which generated this result tra nsmitted reference range : <=0.8. The reference r lala was not used to int erpret this result as normal/abnormal . [facility] HospitalFmovmbeWLYTPWGISK0802-05-51 17:50:00 Test Item Value Reference Range Interpretation Comments Lymphocytes # (test code = Lymphocytes 2.1 1.0-5.5 #) [facility] HospitalBjijzbyHJIFWVMXET9075-19-99 17:50:00 Test Item Value Reference Range Interpretation Comments Segs-Bands # (test code = Segs-Bands #) 8.3 1.5-8.1 [facility]2016-07-12 07:45:00 Test Item Value Reference Range Interpretation Comments Phosphorus (test code = Phosphorus) 3.7 2.5-4.5 [facility]2016-07-12 07:45:00 Test Item Value Reference Range Interpretation Comments Magnesium Lvl (test code = Magnesium 2.4 1.8-2.4 Lvl) [facility]FqfwtkyJZEURRLLRGOA4318-60-94 07:45:00 Test Item Value Reference Range Interpretation Comments AGAP (test code = AGAP) 12.2 10.0-20.0 [facility] OaklandWasxctqXQCPXVHYTFWR3608-89-18 07:45:00 Test Item Value Reference Range Interpretation Comments eGFR (test code = eGFR) 23 [facility]SjwrqvkSWWULBDXUZGU8797-96-84 07:45:00 Test Item Value Reference Range Interpretation Comments Potassium Lvl (test code = Potassium 4.2 3.5-5.1 Lvl) [facility] OaklandJaqtussEPPRICAQKHQN0004-49-96 07:45:00 Test Item Value Reference Range Interpretation Comments Sodium Lvl (test code = Sodium Lvl) 140 135-145 [facility] OaklandZwllwcdOZIIHQYEPABP4613-67-85 07:45:00 Test Item Value Reference Range Interpretation Comments Chloride Lvl (test code = Chloride Lvl) 107 95-109 [facility] OaklandFpluhhsNHEOZOIGITKT0975-26-44 07:45:00 Test Item Value Reference Range Interpretation Comments Glucose Lvl (test code = Glucose Lvl) 120 70-99 [facility] OaklandMcggvxnWUMLSBSSIDPJ6736-82-94 07:45:00 Test Item Value Reference Range Interpretation Comments Calcium Lvl (test code = Calcium Lvl) 8.4 8.5-10.5 [facility] OaklandWkxkvnuUIPNIAMDZLWO1880-65-96 07:45:00 Test Item Value Reference Range Interpretation Comments CO2 (test code = CO2) 25 24-32 [facility] OaklandTeisttuHOWNFGRHGWLM1142-75-28 07:45:00 Test Item Value Reference Range Interpretation Comments Creatinine Lvl (test code = Creatinine 2.74 0.50-1.40 Lvl) [facility] OaklandNeqihaqASHPNBYQGYUZ8224-76-57 07:45:00 Test Item Value Reference Range Interpretation Comments BUN (test code = BUN) 37 7-22 [facility]FiydhmkVMFWOHXWEQ1821-07-04 07:45:00 Test Item Value Reference Range Interpretation Comments PTT (test code = PTT) 33.2 s 22.9-35.8 [facility] HospitalRwkdhcnXMPXBFOASZ0756-21-24 07:45:00 Test Item Value Reference Range Interpretation Comments PT (test code = PT) 16.1 s 12.0-14.7 [facility] HospitalPdfngtsGIUUJNYRWJ3137-27-35 07:45:00 Test Item Value Reference Range Interpretation Comments INR (test code = INR) 1.26 0.85-1.17 [facility] HospitalGuflpluUBQRZCWNWE5918-70-04 07:45:00 Test Item Value Reference Range Interpretation Comments WBC (test code = WBC) 9.3 3.7-10.4 [facility] HospitalCmmnrdxALJOUPPKLO6026-04-27 07:45:00 Test Item Value Reference Range Interpretation Comments RBC (test code = RBC) 2.98 4.70-6.10 [facility] HospitalFnlzwhyCFNHSXHYRW7824-15-33 07:45:00 Test Item Value Reference Range Interpretation Comments Hgb (test code = Hgb) 9.7 14.0-18.0 [facility] HospitalEqjiewoYPAJWODZEL3653-35-20 07:45:00 Test Item Value Reference Range Interpretation Comments MCH (test code = MCH) 32.5 pg 27.0-31.0 [facility] HospitalUhfmaecTEESHFZWAU2460-19-71 07:45:00 Test Item Value Reference Range Interpretation Comments MCV (test code = MCV) 94.0 80.0-94.0 [facility] HospitalGgwpfxbNVFMXFZEZG0177-56-88 07:45:00 Test Item Value Reference Range Interpretation Comments Hct (test code = Hct) 28.0 42.0-54.0 [facility] HospitalBajkkspYKWFIHAKZS4487-42-88 07:45:00 Test Item Value Reference Range Interpretation Comments RDW (test code = RDW) 13.4 11.5-14.5 [facility] HospitalKdnvfhrFGKIAHLOBP6557-86-67 07:45:00 Test Item Value Reference Range Interpretation Comments Platelet (test code = Platelet) 196 133-450 [facility] HospitalTgikimkOBTVZOTDYE4369-93-48 07:45:00 Test Item Value Reference Range Interpretation Comments MCHC (test code = MCHC) 34.6 32.0-36.0 [facility] HospitalEmkktcqECRLORCJSM1123-03-26 07:45:00 Test Item Value Reference Range Interpretation Comments MPV (test code = MPV) 8.5 7.4-10.4 [facility] HospitalXannchhDWVAYDHOKM4246-85-97 07:45:00 Test Item Value Reference Range Interpretation Comments Segs-Bands # (test code = Segs-Bands #) 6.5 1.5-8.1 [facility] HospitalOvnhefcODXDYRJODR2296-67-39 07:45:00 Test Item Value Reference Range Interpretation Comments Basophils (test code = 1.1 See_Comment [Aut omated message] The Basophils) system which ge nerated this result tra nsmitted reference range : <=1.0. The reference r lala was not used to int erpret this result as normal/abnormal . [facility] HospitalZqflpgoADHYIARIBI9108-72-32 07:45:00 Test Item Value Reference Range Interpretation Comments Eosinophils (test code = 3.3 See_Comment [A utomated message] The Eosinophils) system which ge nerated this result tra nsmitted reference range : <=4.0. The reference r lala was not used to int erpret this result as normal/abnormal . [facility] HospitalYqxinriNOESZBNJMH1255-89-31 07:45:00 Test Item Value Reference Range Interpretation Comments Lymphocytes # (test code = Lymphocytes 1.5 1.0-5.5 #) [facility] HospitalSzdcslhCTUDQVSOKH1486-42-65 07:45:00 Test Item Value Reference Range Interpretation Comments Monocytes # (test code 0.9 See_Comment [Aut omated message] The = Monocytes #) system which generated this result tra nsmitted reference range : <=0.8. The reference r lala was not used to int erpret this result as normal/abnormal . [facility] HospitalSfyutkbAJEABMLJHS1965-32-60 07:45:00 Test Item Value Reference Range Interpretation Comments Eosinophils # (test code 0.3 See_Comment [A utomated message] The = Eosinophils #) system whic h generated this result tra nsmitted reference range : <=0.5. The reference r lala was not used to int erpret this result as normal/abnormal . [facility] HospitalJkomtslNOWXUPQFWS4790-75-98 07:45:00 Test Item Value Reference Range Interpretation Comments Basophils # (test code 0.1 See_Comment [Aut omated message] The = Basophils #) system which generated this result tra nsmitted reference range : <=0.2. The reference r lala was not used to int erpret this result as normal/abnormal . [place] 462606-07-12 07:45:00 Test Item Value Reference Range Interpretation Comments Monocytes (test code = Monocytes) 9.8 2.0-12.0 [facility]WkngjgsWYDIXXUKYU0486-63-13 07:45:00 Test Item Value Reference Range Interpretation Comments Lymphocytes (test code = Lymphocytes) 15.6 20.0-40.0 [facility] HospitalHcyvsfiLFSLPPHPXF1790-02-67 07:45:00 Test Item Value Reference Range Interpretation Comments Segs (test code = Segs) 70.2 45.0-75.0 [facility] DOQNEDB9577-[facility] 07:45:00 Test Item Value Reference Range Interpretation Comments Ca Ion WB (test code = Ca Ion WB) 1.14 1.05-1.25 [facility]RO[facility] ZDALDLG7201-95-75 07:45:00 Test Item Value Reference Range Interpretation Comments Ca Norm WB (test code = Ca Norm WB) 1.14 1.05-1.25 [facility]2016-07-11 15:28:00 Test Item Value Reference Range Interpretation Comments U Eos (test code = U None Seen (11/13/15 Eos) 10:28 AM) [facility]aleGameGround KRZG0176-03-89 15:28:00 Test Item Value Reference Range Interpretation Comments U Chloride (test code = U Chloride) no gt [facility]2016-07-11 15:28:00 Test Item Value Reference Range Interpretation Comments U Potassium (test code = U Potassium) 35.6 [facility]2016-07-11 15:28:00 Test Item Value Reference Range Interpretation Comments U Sodium (test code = U Sodium) 10 [facility]2016-07-11 15:28:00 Test Item Value Reference Range Interpretation Comments U Creatinine (test code = U 171.00 Creatinine) [facility] EIIPDJM8127-95-98 09:56:00 Test Item Value Reference Range Interpretation Comments Antibody Scrn (test Negative (11/13/15 4:56 code = Antibody Scrn) AM) [facility] [employer] BANK PSTJWBB6262-79-90 09:56:00 Test Item Value Reference Range Interpretation Comments ABO/Rh (test code = ABO/Rh) O POS [facility] AliveCorannCHEM OUMJX3802-13-68 09:56:00 Test Item Value Reference Range Interpretation Comments Magnesium Lvl (test code = Magnesium 2.3 1.8-2.4 Lvl) [facility]CHE[facility] EWGLX2823-95-43 09:56:00 Test Item Value Reference Range Interpretation Comments Phosphorus (test code = Phosphorus) 3.1 2.5-4.5 [facility]BzdoqlyEOSBKBOQQONO3780-92-94 09:56:00 Test Item Value Reference Range Interpretation Comments AGAP (test code = AGAP) 14.1 10.0-20.0 [facility] OaklandXtsrjvrMKMPREEVUFIL9104-21-64 09:56:00 Test Item Value Reference Range Interpretation Comments eGFR (test code = eGFR) 23 [facility] OaklandZddkxkeEQVZJRIFLBBF3257-20-06 09:56:00 Test Item Value Reference Range Interpretation Comments Potassium Lvl (test code = Potassium 4.1 3.5-5.1 Lvl) [facility] OaklandAhyhyjdUJCDGJJOFBFZ0778-22-20 09:56:00 Test Item Value Reference Range Interpretation Comments CO2 (test code = CO2) 24 24-32 [facility] OaklandPolttreEXTELQGJWMHG4414-55-49 09:56:00 Test Item Value Reference Range Interpretation Comments Chloride Lvl (test code = Chloride Lvl) 106 95-109 [facility] OaklandYnwrjtwNGSPLOLMAHGU5719-48-37 09:56:00 Test Item Value Reference Range Interpretation Comments Calcium Lvl (test code = Calcium Lvl) 8.2 8.5-10.5 [facility] OaklandNcbkcpvSTRJGHOOJHNM6653-41-09 09:56:00 Test Item Value Reference Range Interpretation Comments BUN (test code = BUN) 30 7-22 [facility] OaklandOcpkjcrCZFHNNAWOJCF0566-38-05 09:56:00 Test Item Value Reference Range Interpretation Comments Creatinine Lvl (test code = Creatinine 2.74 0.50-1.40 Lvl) [facility] OaklandEpvvacdQKEJUAFDPBDR8010-00-54 09:56:00 Test Item Value Reference Range Interpretation Comments Sodium Lvl (test code = Sodium Lvl) 140 135-145 [facility] OaklandGylyfoiCFUBASJMBLGJ2607-94-29 09:56:00 Test Item Value Reference Range Interpretation Comments Glucose Lvl (test code = Glucose Lvl) 139 70-99 [facility] ArlingtonNydbvrzWJERVCQNXJ2522-68-73 09:56:00 Test Item Value Reference Range Interpretation Comments Segs-Bands # (test code = Segs-Bands #) 7.2 1.5-8.1 [facility] HospitalKoanxxdZNRCMPAHBJ4187-63-79 09:56:00 Test Item Value Reference Range Interpretation Comments Monocytes (test code = Monocytes) 10.1 2.0-12.0 [facility] HospitalXvwgkhjRNNMUKOEDT8291-40-11 09:56:00 Test Item Value Reference Range Interpretation Comments Eosinophils (test code = 2.3 See_Comment [A utomated message] The Eosinophils) system which ge nerated this result tra nsmitted reference range : <=4.0. The reference r lala was not used to int erpret this result as normal/abnormal . [facility] HospitalBqgsmhyAJJOQUWWNC4201-57-60 09:56:00 Test Item Value Reference Range Interpretation Comments Lymphocytes (test code = Lymphocytes) 13.7 20.0-40.0 [facility] HospitalByzanjiKUVZAENAGN6354-73-65 09:56:00 Test Item Value Reference Range Interpretation Comments Basophils (test code = 1.1 See_Comment [Aut omated message] The Basophils) system which ge nerated this result tra nsmitted reference range : <=1.0. The reference r lala was not used to int erpret this result as normal/abnormal . [facility] HospitalKuhunklAMEGDOMMRR9179-14-00 09:56:00 Test Item Value Reference Range Interpretation Comments Segs (test code = Segs) 72.8 45.0-75.0 [facility] HospitalTasnqquMNRRUTBEMU8515-24-96 09:56:00 Test Item Value Reference Range Interpretation Comments Basophils # (test code 0.1 See_Comment [Aut omated message] The = Basophils #) system which generated this result tra nsmitted reference range : <=0.2. The reference r lala was not used to int erpret this result as normal/abnormal . [facility] HospitalPrtmusvXWRPKJXPSJ8258-69-99 09:56:00 Test Item Value Reference Range Interpretation Comments Eosinophils # (test code 0.2 See_Comment [A utomated message] The = Eosinophils #) system whic h generated this result tra nsmitted reference range : <=0.5. The reference r lala was not used to int erpret this result as normal/abnormal . [facility] HospitalHmoidvtGDJZRDAVSA3788-48-68 09:56:00 Test Item Value Reference Range Interpretation Comments Monocytes # (test code 1.0 See_Comment [Aut omated message] The = Monocytes #) system which generated this result tra nsmitted reference range : <=0.8. The reference r lala was not used to int erpret this result as normal/abnormal . [facility] HospitalUdctqouLGMKYSYIHS5429-42-24 09:56:00 Test Item Value Reference Range Interpretation Comments Lymphocytes # (test code = Lymphocytes 1.3 1.0-5.5 #) [facility] HospitalQzmtxiuSMIVPHTLSM6033-24-48 09:56:00 Test Item Value Reference Range Interpretation Comments PTT (test code = PTT) 34.9 s 22.9-35.8 [place] 462606-07-11 09:56:00 Test Item Value Reference Range Interpretation Comments INR (test code = INR) 1.27 0.85-1.17 [facility] HospitalJmnzvvuGMBQZHESUK0435-04-75 09:56:00 Test Item Value Reference Range Interpretation Comments PT (test code = PT) 16.2 s 12.0-14.7 [facility] HospitalZurxsxlLRFWPGVPSM4812-55-74 09:56:00 Test Item Value Reference Range Interpretation Comments Hgb (test code = Hgb) 9.7 14.0-18.0 [facility] HospitalYgslxsxUVPOJDIQRR2435-38-98 09:56:00 Test Item Value Reference Range Interpretation Comments RBC (test code = RBC) 2.98 4.70-6.10 [facility] HospitalHjmbwccCNVPQKDASB9665-54-09 09:56:00 Test Item Value Reference Range Interpretation Comments WBC (test code = WBC) 9.9 3.7-10.4 [facility] HospitalJvnwjytQHLXQOEKHB0486-36-31 09:56:00 Test Item Value Reference Range Interpretation Comments MCH (test code = MCH) 32.5 pg 27.0-31.0 [facility] HospitalSwmfcxvQIHYFAEEXZ9314-44-70 09:56:00 Test Item Value Reference Range Interpretation Comments MCHC (test code = MCHC) 34.5 32.0-36.0 [facility] HospitalWurefxyNSQCSUEGYT5526-38-35 09:56:00 Test Item Value Reference Range Interpretation Comments MCV (test code = MCV) 94.3 80.0-94.0 [facility] HospitalKtsockgIBGQCOZQYO5029-41-38 09:56:00 Test Item Value Reference Range Interpretation Comments Hct (test code = Hct) 28.1 42.0-54.0 [facility] HospitalUiyomjcBVYAJYDPSO5514-36-79 09:56:00 Test Item Value Reference Range Interpretation Comments MPV (test code = MPV) 8.5 7.4-10.4 [facility]aleSamhnhfPGFPTSWHSH3986-04-87 09:56:00 Test Item Value Reference Range Interpretation Comments Platelet (test code = Platelet) 188 133-450 [facility] ArlingtonPiueeriQWBCRXMUXV1631-94-41 09:56:00 Test Item Value Reference Range Interpretation Comments RDW (test code = RDW) 13.3 11.5-14.5 [facility]annPARATHYROID [id number] 09:56:00 Test Item Value Reference Range Interpretation Comments Ca Ion WB (test code = Ca Ion WB) 1.06 1.05-1.25 [facility]annPARATHYROID [id number] 09:56:00 Test Item Value Reference Range Interpretation Comments Ca Norm WB (test code = Ca Norm WB) 1.09 1.05-1.25 [facility] [id number] 21:39:00 Test Item Value Reference Range Interpretation Comments U Chloride (test code = U Chloride) 87 [facility] [id number] 21:39:00 Test Item Value Reference Range Interpretation Comments U Potassium (test code = U Potassium) 34.7 [facility] [id number] 21:39:00 Test Item Value Reference Range Interpretation Comments U Sodium (test code = U Sodium) 50 [facility] [id number] 21:39:00 Test Item Value Reference Range Interpretation Comments U Creatinine (test code = U Creatinine) 84.10 [facility]annMOLECULAR [id number] 19:52:00 Test Item Value Reference Range Interpretation Comments C difficile DNA (test Negative (11/12/15 2:52 code = C difficile DNA) PM) [facility]annCHEM [id number] 07:59:00 Test Item Value Reference Range Interpretation Comments eGFR (test code = eGFR) 25 [facility]annCHE[facility] [id number] 07:59:00 Test Item Value Reference Range Interpretation Comments Potassium Lvl (test code = Potassium 4.1 3.5-5.1 Lvl) [facility]CHE[facility] [id number] 07:59:00 Test Item Value Reference Range Interpretation Comments Sodium Lvl (test code = Sodium Lvl) 139 135-145 [facility]2016-07-10 07:59:00 Test Item Value Reference Range Interpretation Comments Calcium Lvl (test code = Calcium Lvl) 8.1 8.5-10.5 [facility]2016-07-10 07:59:00 Test Item Value Reference Range Interpretation Comments Chloride Lvl (test code = Chloride Lvl) 105 95-109 [facility]2016-07-10 07:59:00 Test Item Value Reference Range Interpretation Comments CO2 (test code = CO2) 24 24-32 [facility]2016-07-10 07:59:00 Test Item Value Reference Range Interpretation Comments Creatinine Lvl (test code = Creatinine 2.58 0.50-1.40 Lvl) [facility]2016-07-10 07:59:00 Test Item Value Reference Range Interpretation Comments BUN (test code = BUN) 21 7-22 [facility]2016-07-10 07:59:00 Test Item Value Reference Range Interpretation Comments Glucose Lvl (test code = Glucose Lvl) 120 70-99 [facility]2016-07-10 07:59:00 Test Item Value Reference Range Interpretation Comments AGAP (test code = AGAP) 14.1 10.0-20.0 [facility]2016-07-10 07:59:00 Test Item Value Reference Range Interpretation Comments Phosphorus (test code = Phosphorus) 2.8 2.5-4.5 [facility]2016-07-10 07:59:00 Test Item Value Reference Range Interpretation Comments Magnesium Lvl (test code = Magnesium 1.9 1.8-2.4 Lvl) [facility]hsWZVJRHEDYC7623-55-82 07:59:00 Test Item Value Reference Range Interpretation Comments PTT (test code = PTT) 32.6 s 22.9-35.8 [facility] HospitalYqmtngiCZZXFLDFXF7082-60-18 07:59:00 Test Item Value Reference Range Interpretation Comments PT (test code = PT) 15.9 s 12.0-14.7 [facility] HospitalCggknguDEACNTWQEG0185-66-55 07:59:00 Test Item Value Reference Range Interpretation Comments INR (test code = INR) 1.24 0.85-1.17 [place] [id number] 07:59:00 Test Item Value Reference Range Interpretation Comments MCH (test code = MCH) 32.7 pg 27.0-31.0 [facility] HospitalJooamokNDCYYCKEOJ5888-10-57 07:59:00 Test Item Value Reference Range Interpretation Comments MCHC (test code = MCHC) 34.8 32.0-36.0 [facility] HospitalEkajyxgPSPJUQYDXR7360-78-24 07:59:00 Test Item Value Reference Range Interpretation Comments RDW (test code = RDW) 13.8 11.5-14.5 [facility] HospitalZnkfxowQQLKGPWNVX1163-09-36 07:59:00 Test Item Value Reference Range Interpretation Comments MPV (test code = MPV) 8.6 7.4-10.4 [facility] HospitalPtckkgkUYCCUTMNUU5273-87-10 07:59:00 Test Item Value Reference Range Interpretation Comments Platelet (test code = Platelet) 190 133-450 [facility] HospitalOrekuguXGCLAVXBKJ6351-28-16 07:59:00 Test Item Value Reference Range Interpretation Comments Hgb (test code = Hgb) 9.9 14.0-18.0 [facility] HospitalWordawnYJELPUVDSA4715-58-54 07:59:00 Test Item Value Reference Range Interpretation Comments Hct (test code = Hct) 28.4 42.0-54.0 [facility] HospitalLnzncveWKZJZNFXYX2635-48-60 07:59:00 Test Item Value Reference Range Interpretation Comments MCV (test code = MCV) 94.1 80.0-94.0 [facility] HospitalGannkrqNSPZIOFANA5502-19-29 07:59:00 Test Item Value Reference Range Interpretation Comments WBC (test code = WBC) 10.7 3.7-10.4 [facility] HospitalEhqohxpYUULCKJNUN5467-64-14 07:59:00 Test Item Value Reference Range Interpretation Comments RBC (test code = RBC) 3.01 4.70-6.10 [facility] HospitalVlwtggePDGIGRJAON8936-94-69 07:59:00 Test Item Value Reference Range Interpretation Comments Segs-Bands # (test code = Segs-Bands #) 7.9 1.5-8.1 [facility] HospitalMsnzmecYAPXTBNSZN5842-08-51 07:59:00 Test Item Value Reference Range Interpretation Comments Eosinophils # (test code 0.3 See_Comment [A utomated message] The = Eosinophils #) system ic h generated this result tra nsmitted reference range : <=0.5. The reference r lala was not used to int erpret this result as normal/abnormal . [facility] HospitalTyfhmhdXEKRWFXVKX6563-84-97 07:59:00 Test Item Value Reference Range Interpretation Comments Lymphocytes # (test code = Lymphocytes 1.7 1.0-5.5 #) [facility] HospitalQrvukenPEEFSPJSZM8157-32-67 07:59:00 Test Item Value Reference Range Interpretation Comments Monocytes # (test code 0.7 See_Comment [Aut omated message] The = Monocytes #) system which generated this result tra nsmitted reference range : <=0.8. The reference r lala was not used to int erpret this result as normal/abnormal . [facility] HospitalFerefoiJYERBZFFFY7339-74-76 07:59:00 Test Item Value Reference Range Interpretation Comments Basophils # (test code 0.1 See_Comment [Aut omated message] The = Basophils #) system which generated this result tra nsmitted reference range : <=0.2. The reference r lala was not used to int erpret this result as normal/abnormal . [facility] HospitalPmblmzsCESKVOKEOT3034-98-20 07:59:00 Test Item Value Reference Range Interpretation Comments Eosinophils (test code = 2.8 See_Comment [A utomated message] The Eosinophils) system which ge nerated this result tra nsmitted reference range : <=4.0. The reference r lala was not used to int erpret this result as normal/abnormal . [facility] HospitalRxzygmsWJRCVCEJVH6737-52-99 07:59:00 Test Item Value Reference Range Interpretation Comments Segs (test code = Segs) 74.3 45.0-75.0 [facility] HospitalJufkmtjXXLUNSIFJA0296-39-28 07:59:00 Test Item Value Reference Range Interpretation Comments Monocytes (test code = Monocytes) 6.8 2.0-12.0 [facility] HospitalLwsfytnREQXPGOSOL3807-46-30 07:59:00 Test Item Value Reference Range Interpretation Comments Basophils (test code = 0.6 See_Comment [Aut omated message] The Basophils) system which ge nerated this result tra nsmitted reference range : <=1.0. The reference r lala was not used to int erpret this result as normal/abnormal . [facility] HospitalEdimvrcXTDLNAKLTG1211-27-07 07:59:00 Test Item Value Reference Range Interpretation Comments Lymphocytes (test code = Lymphocytes) 15.5 20.0-40.0 [facility] [id number] 07:59:00 Test Item Value Reference Range Interpretation Comments Ca Norm WB (test code = Ca Norm WB) 1.08 1.05-1.25 [facility] HermannPARATHYROID [id number] 07:59:00 Test Item Value Reference Range Interpretation Comments Ca Ion WB (test code = Ca Ion WB) 1.10 1.05-1.25 [facility]annCARDIAC [id number] 07:23:00 Test Item Value Reference Range Interpretation Comments Total CK (test code = Total CK) 63 12-191 [facility]valeJwbradlPXGIEMYZN3672-12-36 07:23:00 Test Item Value Reference Range Interpretation Comments Myoglobin (test code = Myoglobin) 122 25-72 [facility]aleannCARYeddaAC [id number] 06:46:00 Test Item Value Reference Range Interpretation Comments CK MB (test code = CK MB) 7.2 0.5-3.6 [facility]aleannCARDIAC [id number] 06:46:00 Test Item Value Reference Range Interpretation Comments CK-MB INDEX (test 7.4 See_Comment [Automate d message] The code = CK-MB INDEX) system w [facility] generated this result transmit cecelia reference range : <=2.5. The reference range was not used to interpr et this result as peytno l/abnormal. [facility] SunnyvaleShareYourCartCARYeddaAC [id number] 06:46:00 Test Item Value Reference Range Interpretation Comments Troponin-I (test code 2.38 See_Comment [Auto mated message] The = Troponin-I) system which g enerated this result transmit cecelia reference range : <=0.40. The reference r lala was not used to interpr et this result as peyton l/abnormal. [facility] SunnyvaleSilverlink CommunicationsAC [id number] 06:46:00 Test Item Value Reference Range Interpretation Comments Troponin-T (test code 0.224 See_Comment [Auto mated message] The = Troponin-T) system which g enerated this result transmit cecelia reference range : <=0.100. The reference r lala was not used to interpr et this result as peyton l/abnormal. [facility] AliveCorannCARDIAC [id number] 06:46:00 Test Item Value Reference Range Interpretation Comments Total CK (test code = Total CK) 97 12-191 [facility] AliveCorannCARDIAC [id number] 23:07:00 Test Item Value Reference Range Interpretation Comments CK MB Index (test 8.7 See_Comment [Automate d message] The code = CK MB Index) system w [employer] generated this result transmit cecelia reference range : <=2.5. The reference range was not used to interpr et this result as peyton l/abnormal. [facility] XumiiCARYeddaAC [id number] 23:07:00 Test Item Value Reference Range Interpretation Comments CK MB (test code = CK MB) 12.2 0.5-3.6 [facility] AliveCorannCARDIAC [id number] 23:07:00 Test Item Value Reference Range Interpretation Comments Troponin-T (test code 0.287 See_Comment [Auto mated message] The = Troponin-T) system which g enerated this result transmit cecelia reference range : <=0.100. The reference r lala was not used to interpr et this result as peyton l/abnormal. [facility] XumiiCARYeddaAC [id number] 23:07:00 Test Item Value Reference Range Interpretation Comments Total CK (test code = Total CK) 140 12-191 [facility] SunnyvaleRetention Science [id number] 23:07:00 Test Item Value Reference Range Interpretation Comments Troponin-I (test code 3.62 See_Comment [Auto mated message] The = Troponin-I) system which g enerated this result transmit cecelia reference range : <=0.40. The reference r lala was not used to interpr et this result as peyton l/abnormal. [facility] PmbyegfBITOLZBUS0733-42-85 23:07:00 Test Item Value Reference Range Interpretation Comments Myoglobin (test code = Myoglobin) 139 25-72 [facility] AliveCorannCARDIAC [id number] 18:02:00 Test Item Value Reference Range Interpretation Comments CK MB (test code = CK MB) 10.0 0.5-3.6 [facility] HermannCARYeddaAC [id number] 18:02:00 Test Item Value Reference Range Interpretation Comments CK MB Index (test 8.3 See_Comment [Automate d message] The code = CK MB Index) system w [employer] generated this result transmit cecelia reference range : <=2.5. The reference range was not used to interpr et this result as peyton l/abnormal. [place] [id number] 18:02:00 Test Item Value Reference Range Interpretation Comments Troponin-I (test code 3.03 See_Comment [Auto mated message] The = Troponin-I) system which g enerated this result transmit cecelia reference range : <=0.40. The reference r lala was not used to interpr et this result as peyton l/abnormal. [place] [id number] 18:02:00 Test Item Value Reference Range Interpretation Comments Troponin-T (test code 0.214 See_Comment [Auto mated message] The = Troponin-T) system which g enerated this result transmit cecelia reference range : <=0.100. The reference r lala was not used to interpr et this result as peyton l/abnormal. [employer]ent[facility]RtcthpcEMVKTVVXC4009-14-35 18:02:00 Test Item Value Reference Range Interpretation Comments Myoglobin (test code = Myoglobin) 190 25-72 [facility] [id number] 07:01:00 Test Item Value Reference Range Interpretation Comments Antibody Scrn (test Negative (11/09/15 2:01 code = Antibody Scrn) AM) [facility] [id number] 07:01:00 Test Item Value Reference Range Interpretation Comments ABO/Rh (test code = ABO/Rh) O POS [employer] [id number] 07:34:00 Test Item Value Reference Range Interpretation Comments Globulin (test code = Globulin) 3.6 2.0-4.0 [employer] [id number] 07:34:00 Test Item Value Reference Range Interpretation Comments Bili Total (test code = Bili Total) 0.4 0.2-1.3 [employer] [id number] 07:34:00 Test Item Value Reference Range Interpretation Comments Bili Direct (test code 0.1 See_Comment [Aut omated message] The = Bili Direct) system which generated this result tra nsmitted reference range : <=0.3. The reference r lala was not used to int erpret this result as peyton l/abnormal. [facility]2016-07-06 07:34:00 Test Item Value Reference Range Interpretation Comments A/G Ratio (test code = A/G Ratio) 0.8 0.7-1.6 [facility]2016-07-06 07:34:00 Test Item Value Reference Range Interpretation Comments Bili Indirect (test 0.3 See_Comment [Automa cecelia message] The code = Bili Indirect) system which generated this result tra nsmitted reference range : <=1.0. The reference r lala was not used to int erpret this result as normal/abnormal . [facility] ArlingtonUNI5 [id number] 07:34:00 Test Item Value Reference Range Interpretation Comments Total Protein (test code = Total 6.6 6.4-8.4 Protein) [facility]2016-07-06 07:34:00 Test Item Value Reference Range Interpretation Comments ALT (test code = ALT) 14 See_Comment [Auto mated message] The system which ge nerated this result transmit cecelia reference range : <=65. The reference range was not used to interpr et this result as peyton l/abnormal. [facility]aleAllegiance [id number] 07:34:00 Test Item Value Reference Range Interpretation Comments Alk Phos (test code = Alk Phos) 77 39-136 [facility]aleAl[facility] [id number] 07:34:00 Test Item Value Reference Range Interpretation Comments Albumin Lvl (test code = Albumin Lvl) 3.0 3.5-5.0 [facility]aleAl[facility] [id number] 07:34:00 Test Item Value Reference Range Interpretation Comments AST (test code = AST) 11 See_Comment [Auto mated message] The system which ge nerated this result transmit cecelia reference range : <=37. The reference range was not used to interpr et this result as peyton l/abnormal. [facility] ArlingtonSelxwodYIEHKEEUHT5185-93-94 07:34:00 Test Item Value Reference Range Interpretation Comments Vanco Lvl (test code = Vanco Lvl) 22.3 [facility] [id number] 09:02:00 Test Item Value Reference Range Interpretation Comments Alk Phos (test code = Alk Phos) 73 39-136 [facility] [id number] 09:02:00 Test Item Value Reference Range Interpretation Comments Albumin Lvl (test code = Albumin Lvl) 3.0 3.5-5.0 [facility]2016-07-05 09:02:00 Test Item Value Reference Range Interpretation Comments Globulin (test code = Globulin) 3.5 2.0-4.0 [place] [id number] 09:02:00 Test Item Value Reference Range Interpretation Comments Total Protein (test code = Total 6.5 6.4-8.4 Protein) [place] 138996-07-05 09:02:00 Test Item Value Reference Range Interpretation Comments AST (test code = AST) 14 See_Comment [Auto mated message] The system which ge nerated this result transmit cecelia reference range : <=37. The reference range was not used to interpr et this result as peyton l/abnormal. [place] 138996-07-05 09:02:00 Test Item Value Reference Range Interpretation Comments A/G Ratio (test code = A/G Ratio) 0.9 0.7-1.6 [place] 138996-07-05 09:02:00 Test Item Value Reference Range Interpretation Comments ALT (test code = ALT) 18 See_Comment [Auto mated message] The system which ge nerated this result transmit cecelia reference range : <=65. The reference range was not used to interpr et this result as peyton l/abnormal. [facility]2016-07-05 09:02:00 Test Item Value Reference Range Interpretation Comments Bili Indirect (test 0.3 See_Comment [Automa cecelia message] The code = Bili Indirect) system which generated this result tra nsmitted reference range : <=1.0. The reference r lala was not used to int erpret this result as normal/abnormal . [facility]2016-07-05 09:02:00 Test Item Value Reference Range Interpretation Comments Bili Total (test code = Bili Total) 0.4 0.2-1.3 [place] 138996-07-05 09:02:00 Test Item Value Reference Range Interpretation Comments Bili Direct (test code 0.1 See_Comment [Aut omated message] The = Bili Direct) system which generated this result tra nsmitted reference range : <=0.3. The reference r lala was not used to int erpret this result as peyton l/abnormal. [facility] [id number] 09:02:00 Test Item Value Reference Range Interpretation Comments Vanco Lvl (test code = Vanco Lvl) 7.7 [facility] [id number] 17:16:00 Test Item Value Reference Range Interpretation Comments U Protein (test code = U Protein) 35.8 [facility] [id number] 17:16:00 Test Item Value Reference Range Interpretation Comments U Creatinine (test code = U Creatinine) 60.40 [facility] [id number] 17:16:00 Test Item Value Reference Range Interpretation Comments U Osmolality (test code = U Osmolality) 422 300-800 [facility] [id number] 17:16:00 Test Item Value Reference Range Interpretation Comments U Potassium (test code = U Potassium) 10.9 [facility] [id number] 17:16:00 Test Item Value Reference Range Interpretation Comments U Chloride (test code = U Chloride) 104 [facility] [id number] 17:16:00 Test Item Value Reference Range Interpretation Comments U Sodium (test code = U Sodium) 105 [facility] AND [id number] 10:36:00 Test Item Value Reference Range Interpretation Comments UA WBC (test code = no gt See_Comment [Automa cecelia message] The UA WBC) system which ge nerated this result transmit cecelia reference range : <=5. The reference range was not used to interpr et this result as peyton l/abnormal. [facility] AND [id number] 10:36:00 Test Item Value Reference Range Interpretation Comments UA Hyal Cast (test 3 See_Comment [Automat ed message] The code = UA Hyal Cast) system which generated this result transmit cecelia reference range : <=2. The reference range was not used to interpr et this result as peyton l/abnormal. [facility] AND [id number] 10:36:00 Test Item Value Reference Range Interpretation Comments UA RBC (test code = 1 See_Comment [Automa cecelia message] The UA RBC) system which ge nerated this result transmit cecelia reference range : <=2. The reference range was not used to interpr et this result as peyton l/abnormal. [facility] AND [id number] 10:36:00 Test Item Value Reference Range Interpretation Comments UA Mucus (test code = UA Mucus) Few /LPF [facility] AND [id number] 10:36:00 Test Item Value Reference Range Interpretation Comments UA Sq Epi (test code = UA Sq Epi) None Seen [facility] AND [id number] 10:36:00 Test Item Value Reference Range Interpretation Comments UA Urobilinogen (test code = UA <=1.0 mg/dL 0.1-1.0 Urobilinogen) [facility] AND [id number] 10:36:00 Test Item Value Reference Range Interpretation Comments UA Ketones (test code = UA Negative mg/dL Ketones) [facility] AND [id number] 10:36:00 Test Item Value Reference Range Interpretation Comments UA Nitrite (test code Negative (11/06/15 5:36 = UA Nitrite) AM) [facility] AND [id number] 10:36:00 Test Item Value Reference Range Interpretation Comments UA Leuk Est (test Negative (11/06/15 5:36 code = UA Leuk Est) AM) [facility] AND [id number] 10:36:00 Test Item Value Reference Range Interpretation Comments UA Bili (test code = Negative *NA*(11/06/15 UA Bili) 5:36 AM) [facility] AND [id number] 10:36:00 Test Item Value Reference Range Interpretation Comments UA Blood (test code = Trace *ABN*(11/06/15 UA Blood) 5:36 AM) [facility] AND [id number] 10:36:00 Test Item Value Reference Range Interpretation Comments UA pH (test code = UA pH) 5.5 5.0-8.0 [facility] AND [id number] 10:36:00 Test Item Value Reference Range Interpretation Comments UA Protein (test code = UA Protein) 30 mg/dL [facility] AND [id number] 10:36:00 Test Item Value Reference Range Interpretation Comments UA Turbidity (test code = Clear (11/06/15 5:36 UA Turbidity) AM) [facility] AND [id number] 10:36:00 Test Item Value Reference Range Interpretation Comments UA Spec Grav (test code = UA Spec Grav) 1.011 [facility] AND [id number] 10:36:00 Test Item Value Reference Range Interpretation Comments UA Glucose (test code = UA Negative mg/dL Glucose) [facility] AND [id number] 10:36:00 Test Item Value Reference Range Interpretation Comments UA Color (test code = Yellow *NA*(11/06/15 5:36 UA Color) AM) [facility] ArlingtonKujyietFEVRRP8282-87-03 10:23:00 Test Item Value Reference Range Interpretation Comments HDL (test code = HDL) 32 [facility] ArlingtonSozbsmwMUNAOL4250-19-99 10:23:00 Test Item Value Reference Range Interpretation Comments CHD Risk (test code = CHD Risk) 4.06 4.00-7.30 [facility] ArlingtonVcrsanbERYFXS8277-10-55 10:23:00 Test Item Value Reference Range Interpretation Comments VLDL (test code = VLDL) 34 [facility] ArlingtonQevzrtkNETLBH1539-82-34 10:23:00 Test Item Value Reference Range Interpretation Comments LDL (Calculated) (test code = LDL 64 (Calculated)) [facility] ArlingtonOrpjqvxHHGLTB8931-45-25 10:23:00 Test Item Value Reference Range Interpretation Comments Chol (test code = Chol) 130 [facility] ArlingtonOpagrqbUIJDNN4733-24-38 10:23:00 Test Item Value Reference Range Interpretation Comments Trig (test code = Trig) 172 [facility] ArlingtonBACTERIAL - [id number] 07:36:00 Test Item Value Reference Range Interpretation Comments MRSA by PCR (test Negative (11/06/15 2:36 code = MRSA by PCR) AM) [facility] [id number] 07:36:00 Test Item Value Reference Range Interpretation Comments ABO/Rh (test code = ABO/Rh) O POS [facility]aleCardiovascular Decisions [id number] 07:36:00 Test Item Value Reference Range Interpretation Comments Antibody Scrn (test Negative (11/06/15 2:36 code = Antibody Scrn) AM) [facility] [facility] [id number] 07:36:00 Test Item Value Reference Range Interpretation Comments Lactic Acid Lvl (test code = Lactic 1.1 0.5-2.2 Acid Lvl) [facility] GFHXDUXDV1853-03-02 07:36:00 Test Item Value Reference Range Interpretation Comments Hgb A1C (test code = Hgb A1C) 5.8 [facility]BR8163[facility]-72 16:15:00 Test Item Value Reference Range Interpretation Comments AGAP (test code = AGAP) 11.7 10.0-20.0 [facility]ZnphxfkWWSHQMAFDPOR4895-74-85 16:15:00 Test Item Value Reference Range Interpretation Comments eGFR (test code = eGFR) 66 [facility] OaklandRdsenwpGFRSEHOEVPHV0164-34-79 16:15:00 Test Item Value Reference Range Interpretation Comments CO2 (test code = CO2) 26 24-32 [facility]SzlgvahIEDHRNDYESTK7492-43-34 16:15:00 Test Item Value Reference Range Interpretation Comments Chloride Lvl (test code = Chloride Lvl) 105 95-109 [facility] OaklandNzsonvbJUDOTOHZNXNP3916-51-02 16:15:00 Test Item Value Reference Range Interpretation Comments Potassium Lvl (test code = Potassium 3.7 3.5-5.1 Lvl) [facility]KamqwgcDRGQVELQFAPB5221-73-71 16:15:00 Test Item Value Reference Range Interpretation Comments Sodium Lvl (test code = Sodium Lvl) 139 135-145 [facility] OaklandOhbikkmKXYZLWIHDXKA1175-45-34 16:15:00 Test Item Value Reference Range Interpretation Comments Creatinine Lvl (test code = Creatinine 1.15 0.50-1.40 Lvl) [facility]ChobnvmRBGFZIQFMAIH0795-34-51 16:15:00 Test Item Value Reference Range Interpretation Comments Calcium Lvl (test code = Calcium Lvl) 9.3 8.5-10.5 [facility]VybjpquPDJZQDXTOSRU5069-18-69 16:15:00 Test Item Value Reference Range Interpretation Comments BUN (test code = BUN) 19 7-22 [facility] OaklandJmxctrlTEUQFJMRGWBD7855-79-24 16:15:00 Test Item Value Reference Range Interpretation Comments Glucose Lvl (test code = Glucose Lvl) 202 70-99 [facility]QzopkdvRRXJSBLQMA2843-22-41 16:15:00 Test Item Value Reference Range Interpretation Comments Monocytes # (test code 0.6 See_Comment [Aut omated message] The = Monocytes #) system which generated this result tra nsmitted reference range : <=0.8. The reference r lala was not used to int erpret this result as normal/abnormal . [facility]wwEKBKFDSGYE3655-62-14 16:15:00 Test Item Value Reference Range Interpretation Comments Lymphocytes # (test code = Lymphocytes 2.1 1.0-5.5 #) [facility]JybvifkDRTXDFOZML2589-83-11 16:15:00 Test Item Value Reference Range Interpretation Comments Segs-Bands # (test code = Segs-Bands #) 5.8 1.5-8.1 [facility] HospitalRfkjewhGRRNSOCFAU7439-03-86 16:15:00 Test Item Value Reference Range Interpretation Comments Segs (test code = Segs) 64.9 45.0-75.0 [facility] HospitalYzuqyreYQVURVSOHU0824-85-03 16:15:00 Test Item Value Reference Range Interpretation Comments Basophils (test code = 1.0 See_Comment [Aut omated message] The Basophils) system which ge nerated this result tra nsmitted reference range : <=1.0. The reference r lala was not used to int erpret this result as normal/abnormal . [facility] HospitalXhtzpxpLDQHJTEYIJ0206-69-74 16:15:00 Test Item Value Reference Range Interpretation Comments Lymphocytes (test code = Lymphocytes) 23.6 20.0-40.0 [facility] HospitalNgarlfxNJMPXMHTUP2269-50-52 16:15:00 Test Item Value Reference Range Interpretation Comments Eosinophils (test code = 4.0 See_Comment [A utomated message] The Eosinophils) system which ge nerated this result tra nsmitted reference range : <=4.0. The reference r lala was not used to int erpret this result as normal/abnormal . [facility] HospitalSobneiiJABMNYUMJV6953-12-72 16:15:00 Test Item Value Reference Range Interpretation Comments Monocytes (test code = Monocytes) 6.5 2.0-12.0 [facility] HospitalRhfpvqoFRLDYNWAES1138-37-11 16:15:00 Test Item Value Reference Range Interpretation Comments Basophils # (test code 0.1 See_Comment [Aut omated message] The = Basophils #) system which generated this result tra nsmitted reference range : <=0.2. The reference r lala was not used to int erpret this result as normal/abnormal . [facility] HospitalDgrcygzGQCHQVPVBB8343-11-33 16:15:00 Test Item Value Reference Range Interpretation Comments Eosinophils # (test code 0.4 See_Comment [A utomated message] The = Eosinophils #) system whic h generated this result tra nsmitted reference range : <=0.5. The reference r lala was not used to int erpret this result as normal/abnormal . [facility] HospitalOqznvmzJOOHFSYQTN1262-34-15 16:15:00 Test Item Value Reference Range Interpretation Comments MCH (test code = MCH) 32.7 pg 27.0-31.0 [facility] HospitalVhlraxnVWMHIORXYC3534-78-49 16:15:00 Test Item Value Reference Range Interpretation Comments MCHC (test code = MCHC) 35.2 32.0-36.0 [facility] HospitalGdkqkmlYUKOAGKGWA2033-54-74 16:15:00 Test Item Value Reference Range Interpretation Comments MCV (test code = MCV) 92.9 80.0-94.0 [facility] HospitalTugigrjKCQMAZFSNF5781-78-84 16:15:00 Test Item Value Reference Range Interpretation Comments Hct (test code = Hct) 39.7 42.0-54.0 [facility] HospitalKwlizavTGPHFUIFWN2546-49-35 16:15:00 Test Item Value Reference Range Interpretation Comments Hgb (test code = Hgb) 14.0 14.0-18.0 [facility] HospitalPzivyqpCZWIDDWKHF0931-51-82 16:15:00 Test Item Value Reference Range Interpretation Comments MPV (test code = MPV) 8.5 7.4-10.4 [facility] HospitalTsuyxetABLLRRGAST4299-58-26 16:15:00 Test Item Value Reference Range Interpretation Comments RDW (test code = RDW) 13.2 11.5-14.5 [facility] HospitalHmdjypqDDHTZBUJKQ2452-24-28 16:15:00 Test Item Value Reference Range Interpretation Comments Platelet (test code = Platelet) 226 133-450 [facility] HospitalAanrenxZIUXWQGLKB1019-68-93 16:15:00 Test Item Value Reference Range Interpretation Comments WBC (test code = WBC) 8.9 3.7-10.4 [facility] HospitalDplsosfXQIRCTTVCT6322-53-23 16:15:00 Test Item Value Reference Range Interpretation Comments RBC (test code = RBC) 4.27 4.70-6.10 [facility] HospitalKszcmawHODEIKOAHP4713-49-58 10:52:00 Test Item Value Reference Range Interpretation Comments INR (test code = INR) 1.15 0.85-1.17 [facility] HospitalJqpedvoIBMGUMNWVP2062-98-37 10:52:00 Test Item Value Reference Range Interpretation Comments PTT (test code = PTT) 30.2 s 22.9-35.8 [facility] HospitalAventmjGSCGTNPCBJ3546-11-78 10:52:00 Test Item Value Reference Range Interpretation Comments PT (test code = PT) 15.0 s 12.0-14.7 [place] 138996-02-06 08:01:00 Test Item Value Reference Range Interpretation Comments Creatinine Lvl (test code = Creatinine 1.09 0.50-1.40 Lvl) [facility]2016-02-06 08:01:00 Test Item Value Reference Range Interpretation Comments eGFR (test code = eGFR) 71 [facility]2016-02-06 08:01:00 Test Item Value Reference Range Interpretation Comments eGFR (test code = eGFR) 72 [facility]2016-02-06 08:01:00 Test Item Value Reference Range Interpretation Comments AST (test code = AST) 18 See_Comment [Auto mated message] The system which ge nerated this result transmit cecelia reference range : <=37. The reference range was not used to interpr et this result as peyton l/abnormal. [facility]2016-02-06 08:01:00 Test Item Value Reference Range Interpretation Comments Alk Phos (test code = Alk Phos) 77 39-136 [facility]2016-02-06 08:01:00 Test Item Value Reference Range Interpretation Comments Bili Total (test code = Bili Total) 0.5 0.2-1.3 [facility]2016-02-06 08:01:00 Test Item Value Reference Range Interpretation Comments Total Protein (test code = Total 7.3 6.4-8.4 Protein) [facility]2016-02-06 08:01:00 Test Item Value Reference Range Interpretation Comments B/C Ratio (test code = B/C Ratio) 19 6-25 [facility]2016-02-06 08:01:00 Test Item Value Reference Range Interpretation Comments Albumin Lvl (test code = Albumin Lvl) 3.4 3.5-5.0 [facility]2016-02-06 08:01:00 Test Item Value Reference Range Interpretation Comments ALT (test code = ALT) 28 See_Comment [Auto mated message] The system which ge nerated this result transmit cecelia reference range : <=65. The reference range was not used to interpr et this result as peyton l/abnormal. [facility]2016-02-06 08:01:00 Test Item Value Reference Range Interpretation Comments A/G Ratio (test code = A/G Ratio) 0.9 0.7-1.6 [facility]2016-02-06 08:01:00 Test Item Value Reference Range Interpretation Comments Globulin (test code = Globulin) 3.9 2.0-4.0 [facility]2016-02-06 08:01:00 Test Item Value Reference Range Interpretation Comments Calcium Lvl (test code = Calcium Lvl) 9.1 8.5-10.5 [facility]2016-02-06 08:01:00 Test Item Value Reference Range Interpretation Comments AGAP (test code = AGAP) 15.4 10.0-20.0 [facility]2016-02-06 08:01:00 Test Item Value Reference Range Interpretation Comments Creatinine Lvl (test code = Creatinine 1.08 0.50-1.40 Lvl) [facility]2016-02-06 08:01:00 Test Item Value Reference Range Interpretation Comments BUN (test code = BUN) 20 7-22 [facility]2016-02-06 08:01:00 Test Item Value Reference Range Interpretation Comments Sodium Lvl (test code = Sodium Lvl) 143 135-145 [facility]2016-02-06 08:01:00 Test Item Value Reference Range Interpretation Comments Glucose Lvl (test code = Glucose Lvl) 196 70-99 [facility]2016-02-06 08:01:00 Test Item Value Reference Range Interpretation Comments CO2 (test code = CO2) 23 24-32 [facility]2016-02-06 08:01:00 Test Item Value Reference Range Interpretation Comments Chloride Lvl (test code = Chloride Lvl) 108 95-109 [facility]2016-02-06 08:01:00 Test Item Value Reference Range Interpretation Comments Potassium Lvl (test code = Potassium 3.4 3.5-5.1 Lvl) [facility]YTETFBI4997[facility] 08:01:00 Test Item Value Reference Range Interpretation Comments Hct (test code = Hct) 39.9 42.0-54.0 [facility] HospitalVcnckliQLOYYLYQVT2986-70-90 08:01:00 Test Item Value Reference Range Interpretation Comments MCHC (test code = MCHC) 33.7 32.0-36.0 [facility] HospitalWiigpajFKYUYNAJZJ0906-00-32 08:01:00 Test Item Value Reference Range Interpretation Comments MCH (test code = MCH) 31.4 pg 27.0-31.0 [facility] HospitalVtqhymaRGOOPDPKWY0419-37-68 08:01:00 Test Item Value Reference Range Interpretation Comments RDW (test code = RDW) 13.7 11.5-14.5 [facility] HospitalIcsrwioLZIEBGGCOT2642-96-34 08:01:00 Test Item Value Reference Range Interpretation Comments MCV (test code = MCV) 93.4 80.0-94.0 [facility] HospitalIyokzmkBDXHJKPEXA6877-57-57 08:01:00 Test Item Value Reference Range Interpretation Comments WBC (test code = WBC) 11.8 3.7-10.4 [facility] HospitalAquuojoLPNDMZSZES8397-11-56 08:01:00 Test Item Value Reference Range Interpretation Comments Hgb (test code = Hgb) 13.4 14.0-18.0 [facility] HospitalLsimdllKEDNDCHGUI8946-67-56 08:01:00 Test Item Value Reference Range Interpretation Comments RBC (test code = RBC) 4.27 4.70-6.10 [facility] HospitalCuftdhlRSDNHPCEUK3228-93-16 08:01:00 Test Item Value Reference Range Interpretation Comments MPV (test code = MPV) 8.5 7.4-10.4 [facility] HospitalUqgnmozYKRLGUIYTG3304-08-49 08:01:00 Test Item Value Reference Range Interpretation Comments Platelet (test code = Platelet) 224 133-450 [facility] HospitalGmywozwLVTXPPRIYY1600-42-35 08:01:00 Test Item Value Reference Range Interpretation Comments PT (test code = PT) 15.2 s 12.0-14.7 [facility] HospitalGdlzmhpPJPHLMJZOE7148-57-63 08:01:00 Test Item Value Reference Range Interpretation Comments PTT (test code = PTT) 32.7 s 22.9-35.8 [facility] HospitalIxzdgctTKMTDAYJVT6208-17-36 08:01:00 Test Item Value Reference Range Interpretation Comments INR (test code = INR) 1.17 0.85-1.17 [facility] HospitalNmhtcsaYAXZWQYDLG4847-25-22 08:01:00 Test Item Value Reference Range Interpretation Comments Basophils # (test code 0.1 See_Comment [Aut omated message] The = Basophils #) system which generated this result tra nsmitted reference range : <=0.2. The reference r lala was not used to int erpret this result as normal/abnormal . [facility] HospitalGoimhjyCWOXBTGRUQ0839-42-12 08:01:00 Test Item Value Reference Range Interpretation Comments Segs-Bands # (test code = Segs-Bands #) 7.5 1.5-8.1 [facility] HospitalBvzhpdcWKTPYSPJQH2306-05-63 08:01:00 Test Item Value Reference Range Interpretation Comments Basophils (test code = 0.7 See_Comment [Aut omated message] The Basophils) system which ge nerated this result tra nsmitted reference range : <=1.0. The reference r lala was not used to int erpret this result as normal/abnormal . [facility] HospitalAociwbdWTMPCUCMCG7000-59-19 08:01:00 Test Item Value Reference Range Interpretation Comments Lymphocytes (test code = Lymphocytes) 25.3 20.0-40.0 [facility] HospitalYbiwlicOUUTZFANAA6911-19-82 08:01:00 Test Item Value Reference Range Interpretation Comments Segs (test code = Segs) 64.1 45.0-75.0 [facility] HospitalVlxnxncWBGBHQKXZY0150-33-70 08:01:00 Test Item Value Reference Range Interpretation Comments Eosinophils (test code = 4.3 See_Comment [A utomated message] The Eosinophils) system which ge nerated this result tra nsmitted reference range : <=4.0. The reference r lala was not used to int erpret this result as normal/abnormal . [facility] HospitalUgqcbckKTTEVNEAUQ3704-82-35 08:01:00 Test Item Value Reference Range Interpretation Comments Monocytes (test code = Monocytes) 5.6 2.0-12.0 [facility] HospitalUbpiakuWAMODIJYJA7406-06-17 08:01:00 Test Item Value Reference Range Interpretation Comments Lymphocytes # (test code = Lymphocytes 3.0 1.0-5.5 #) [facility] HospitalQbzkiakZSOKBKTPRF2818-44-79 08:01:00 Test Item Value Reference Range Interpretation Comments Monocytes # (test code 0.7 See_Comment [Aut omated message] The = Monocytes #) system which generated this result tra nsmitted reference range : <=0.8. The reference r lala was not used to int erpret this result as normal/abnormal . [facility] ArlingtonUomrzzdDGFGGGXCVY0987-28-69 08:01:00 Test Item Value Reference Range Interpretation Comments Eosinophils # (test code 0.5 See_Comment [A utomated message] The = Eosinophils #) system whic h generated this result tra nsmitted reference range : <=0.5. The reference r lala was not used to int erpret this result as normal/abnormal . [facility] ArlingtonVzhdcnvOTVYBJ9977-91-45 08:01:00 Test Item Value Reference Range Interpretation Comments VLDL (test code = VLDL) 35 [facility] ArlingtonIltdrheBQAOSA5019-95-76 08:01:00 Test Item Value Reference Range Interpretation Comments Trig (test code = Trig) 173 [facility]Jqv[facility]lpSEOCXM5521-29-74 08:01:00 Test Item Value Reference Range Interpretation Comments LDL (Calculated) (test code = LDL 28 (Calculated)) [facility] ArlingtonIegdxehASWWPS3501-80-43 08:01:00 Test Item Value Reference Range Interpretation Comments CHD Risk (test code = CHD Risk) 3.33 4.00-7.30 [facility] ArlingtonCwjvsrgNMKRKS9751-81-06 08:01:00 Test Item Value Reference Range Interpretation Comments HDL (test code = HDL) 27 [facility] ArlingtonKtimdqdDXABUJ7360-04-78 08:01:00 Test Item Value Reference Range Interpretation Comments Chol (test code = Chol) 90 [facility] GUTNZAFIN8398-22-41 08:01:00 Test Item Value Reference Range Interpretation Comments Hgb A1C (test code = Hgb A1C) 6.9 [facility] AND [id number] 08:01:00 Test Item Value Reference Range Interpretation Comments UA Urobilinogen (test code = UA <=1.0 mg/dL 0.1-1.0 Urobilinogen) [facility] AND [id number] 08:01:00 Test Item Value Reference Range Interpretation Comments UA Nitrite (test code Negative (06/10/15 2:01 = UA Nitrite) AM) [facility] AND [id number] 08:01:00 Test Item Value Reference Range Interpretation Comments UA Bili (test code = Negative *NA*(06/10/15 UA Bili) 2:01 AM) [facility] AND [id number] 08:01:00 Test Item Value Reference Range Interpretation Comments UA Blood (test code = Negative (06/10/15 2:01 UA Blood) AM) [facility] AND [id number] 08:01:00 Test Item Value Reference Range Interpretation Comments UA WBC (test code = no gt See_Comment [Automa cecelia message] The UA WBC) system which ge nerated this result transmit cecelia reference range : <=5. The reference range was not used to interpr et this result as peyton l/abnormal. [facility] AND [id number] 08:01:00 Test Item Value Reference Range Interpretation Comments UA Leuk Est (test Negative (06/10/15 2:01 code = UA Leuk Est) AM) [facility] AND [id number] 08:01:00 Test Item Value Reference Range Interpretation Comments UA pH (test code = UA pH) 6.5 5.0-8.0 [facility] AND [id number] 08:01:00 Test Item Value Reference Range Interpretation Comments UA Spec Grav (test code = UA Spec Grav) 1.023 [facility] AND [id number] 08:01:00 Test Item Value Reference Range Interpretation Comments UA Turbidity (test code = Clear (06/10/15 2:01 UA Turbidity) AM) [facility] AND [id number] 08:01:00 Test Item Value Reference Range Interpretation Comments UA Color (test code = Light Yellow UA Color) *NA*(06/10/15 2:01 AM) [facility] AND [id number] 08:01:00 Test Item Value Reference Range Interpretation Comments UA Ketones (test code = UA Negative mg/dL Ketones) [facility] AND [id number] 08:01:00 Test Item Value Reference Range Interpretation Comments UA Glucose (test code = UA Glucose) 50 mg/dL [facility] AND [id number] 08:01:00 Test Item Value Reference Range Interpretation Comments UA Protein (test code = UA Negative mg/dL Protein) [facility] AND [id number] 08:01:00 Test Item Value Reference Range Interpretation Comments UA Sq Epi (test code = UA Sq Epi) None [facility]en [facility] [id number] 04:52:00 Test Item Value Reference Range Interpretation Comments U Cannab Scr (test Negative *NA*(06/09/15 code = U Cannab Scr) 10:52 PM) [facility] [id number] 04:52:00 Test Item Value Reference Range Interpretation Comments UDS Note (test code = See Note *NA*(06/09/15 UDS Note) 10:52 PM) [facility] [id number] 04:52:00 Test Item Value Reference Range Interpretation Comments U Opiate Scr (test Negative *NA*(06/09/15 code = U Opiate Scr) 10:52 PM) [facility] [id number] 04:52:00 Test Item Value Reference Range Interpretation Comments U Phencyc Scr (test Negative *NA*(06/09/15 code = U Phencyc Scr) 10:52 PM) [facility] [id number] 04:52:00 Test Item Value Reference Range Interpretation Comments U Cocaine Scr (test Negative *NA*(06/09/15 code = U Cocaine Scr) 10:52 PM) [facility] [id number] 04:52:00 Test Item Value Reference Range Interpretation Comments U Lisa Scr (test code Negative *NA*(06/09/15 = U Lisa Scr) 10:52 PM) [facility] [id number] 04:52:00 Test Item Value Reference Range Interpretation Comments U Benzodia Scr (test Negative *NA*(06/09/15 code = U Benzodia Scr) 10:52 PM) [facility] [id number] 04:52:00 Test Item Value Reference Range Interpretation Comments U Amph Scr (test code Negative *NA*(06/09/15 = U Amph Scr) 10:52 PM) [facility] [id number] 01:49:00 Test Item Value Reference Range Interpretation Comments UA Bacteria (test code = UA Bacteria) Rare [facility] [id number] 01:49:00 Test Item Value Reference Range Interpretation Comments UA RBC (test None Seen See_Comment [Automated mes ric] code = UA RBC) (06/09/15 7:49 PM) The syste m which generated this result transmitted ref erence range: <=2. The reference range was not used to int erpret this result as normal/abnormal . [facility] AND [id number] 01:49:00 Test Item Value Reference Range Interpretation Comments UA WBC (test code = UA WBC) 0-2 /HPF [facility] AND [id number] 01:49:00 Test Item Value Reference Range Interpretation Comments UA Sq Epi (test code = UA Sq Epi) Rare /LPF [facility] AND [id number] 01:49:00 Test Item Value Reference Range Interpretation Comments UA Nitrite (test code Negative (06/09/15 7:49 = UA Nitrite) PM) [facility] AND [id number] 01:49:00 Test Item Value Reference Range Interpretation Comments UA Leuk Est (test Negative (06/09/15 7:49 code = UA Leuk Est) PM) [facility] AND [id number] 01:49:00 Test Item Value Reference Range Interpretation Comments UA Color (test code = Yellow *NA*(06/09/15 7:49 UA Color) PM) [facility] AND [id number] 01:49:00 Test Item Value Reference Range Interpretation Comments UA Turbidity (test code = Clear (06/09/15 7:49 UA Turbidity) PM) [facility] AND [id number] 01:49:00 Test Item Value Reference Range Interpretation Comments UA Urobilinogen (test code = UA 0.2 0.1-1.0 Urobilinogen) [facility] AND [id number] 01:49:00 Test Item Value Reference Range Interpretation Comments UA Bili (test code = Negative *NA*(06/09/15 UA Bili) 7:49 PM) [facility] AND [id number] 01:49:00 Test Item Value Reference Range Interpretation Comments UA Blood (test code = Negative (06/09/15 7:49 UA Blood) PM) [facility] AND [id number] 01:49:00 Test Item Value Reference Range Interpretation Comments UA Ketones (test code = UA Negative mg/dL Ketones) [facility] AND [id number] 01:49:00 Test Item Value Reference Range Interpretation Comments UA Glucose (test code = UA Negative mg/dL Glucose) [facility] AND [id number] 01:49:00 Test Item Value Reference Range Interpretation Comments UA pH (test code = UA pH) 6.0 1 5.0-8.0 [facility] AND [id number] 01:49:00 Test Item Value Reference Range Interpretation Comments UA Protein (test code = UA Negative mg/dL Protein) [facility] AND [id number] 01:49:00 Test Item Value Reference Range Interpretation Comments UA Spec Grav (test code = UA Spec 1.025 1 Grav) [facility] [id number] 00:33:00 Test Item Value Reference Range Interpretation Comments Troponin-I (test code no gt See_Comment [Auto mated message] The = Troponin-I) system which g enerated this result transmit cecelia reference range : <=0.40. The reference r lala was not used to interpr et this result as peyton l/abnormal. [facility]UNI[facility] [id number] 00:33:00 Test Item Value Reference Range Interpretation Comments Bili Indirect (test 0.4 See_Comment [Automa cecelia message] The code = Bili Indirect) system which generated this result tra nsmitted reference range : <=1.0. The reference r lala was not used to int erpret this result as normal/abnormal . [facility]UNI[facility] [id number] 00:33:00 Test Item Value Reference Range Interpretation Comments A/G Ratio (test code = A/G Ratio) 0.9 0.7-1.6 [facility]UNI[facility] [id number] 00:33:00 Test Item Value Reference Range Interpretation Comments Globulin (test code = Globulin) 4.0 2.0-4.0 [facility]UNI[facility] [id number] 00:33:00 Test Item Value Reference Range Interpretation Comments Total Protein (test code = Total 7.6 6.4-8.4 Protein) [facility]2016-02-06 00:33:00 Test Item Value Reference Range Interpretation Comments Albumin Lvl (test code = Albumin Lvl) 3.6 3.5-5.0 [facility]UN[facility] [id number] 00:33:00 Test Item Value Reference Range Interpretation Comments Bili Total (test code = Bili Total) 0.5 0.2-1.3 [facility]2016-02-06 00:33:00 Test Item Value Reference Range Interpretation Comments Bili Direct (test code 0.1 See_Comment [Aut omated message] The = Bili Direct) system which generated this result tra nsmitted reference range : <=0.3. The reference r lala was not used to int erpret this result as peyton l/abnormal. [facility]2016-02-06 00:33:00 Test Item Value Reference Range Interpretation Comments ALT (test code = ALT) 28 See_Comment [Auto mated message] The system which ge nerated this result transmit cecelia reference range : <=65. The reference range was not used to interpr et this result as peyton l/abnormal. [facility]2016-02-06 00:33:00 Test Item Value Reference Range Interpretation Comments Alk Phos (test code = Alk Phos) 88 39-136 [facility]2016-02-06 00:33:00 Test Item Value Reference Range Interpretation Comments AST (test code = AST) 28 See_Comment [Auto mated message] The system which ge nerated this result transmit cecelia reference range : <=37. The reference range was not used to interpr et this result as peyton l/abnormal. [facility]2016-02-06 00:33:00 Test Item Value Reference Range Interpretation Comments Lipase Lvl (test code = Lipase Lvl) 475 73-393 [facility]2016-02-06 00:33:00 Test Item Value Reference Range Interpretation Comments BUN (test code = BUN) 28 7-22 [facility] [id number] 00:33:00 Test Item Value Reference Range Interpretation Comments Sodium Lvl (test code = Sodium Lvl) 140 135-145 [facility]2016-02-06 00:33:00 Test Item Value Reference Range Interpretation Comments CO2 (test code = CO2) 25 24-32 [facility]2016-02-06 00:33:00 Test Item Value Reference Range Interpretation Comments Calcium Lvl (test code = Calcium Lvl) 9.1 8.5-10.5 [facility] [id number] 00:33:00 Test Item Value Reference Range Interpretation Comments Chloride Lvl (test code = Chloride Lvl) 106 95-109 [facility]2016-02-06 00:33:00 Test Item Value Reference Range Interpretation Comments Potassium Lvl (test code = Potassium 4.2 3.5-5.1 Lvl) [facility]2016-02-06 00:33:00 Test Item Value Reference Range Interpretation Comments Glucose Lvl (test code = Glucose Lvl) 93 70-99 [facility]2016-02-06 00:33:00 Test Item Value Reference Range Interpretation Comments AGAP (test code = AGAP) 13.2 10.0-20.0 [facility]xx[facility]wBIWYQACJXS9742-76-69 00:33:00 Test Item Value Reference Range Interpretation Comments PTT (test code = PTT) 26.6 s 22.9-35.8 [place] 462606-02-06 00:33:00 Test Item Value Reference Range Interpretation Comments INR (test code = INR) 1.10 0.85-1.17 [facility] HospitalPxhhkjyJNBPWHIBKO6372-43-94 00:33:00 Test Item Value Reference Range Interpretation Comments PT (test code = PT) 14.5 s 12.0-14.7 [facility] HospitalThgyjatEVUYDIMHRB5316-61-07 00:33:00 Test Item Value Reference Range Interpretation Comments Hgb (test code = Hgb) 13.8 14.0-18.0 [place] 462606-02-06 00:33:00 Test Item Value Reference Range Interpretation Comments RBC (test code = RBC) 4.27 4.70-6.10 [facility] HospitalJskhfwbQICDEZKBRA3150-30-92 00:33:00 Test Item Value Reference Range Interpretation Comments WBC (test code = WBC) 13.6 3.7-10.4 [facility] HospitalVzfpfzpBXBTFQTWTL0192-20-27 00:33:00 Test Item Value Reference Range Interpretation Comments MPV (test code = MPV) 8.6 7.4-10.4 [facility] HospitalPntkaqpQQFCRAMGFK6555-70-34 00:33:00 Test Item Value Reference Range Interpretation Comments MCV (test code = MCV) 95.4 80.0-94.0 [place] 462606-02-06 00:33:00 Test Item Value Reference Range Interpretation Comments Hct (test code = Hct) 40.7 42.0-54.0 [facility] HospitalInqhkdwBWWVJSZWOD6040-72-02 00:33:00 Test Item Value Reference Range Interpretation Comments Platelet (test code = Platelet) 278 133-450 [facility] HospitalStewcfdKGYBVCYYXT9979-87-31 00:33:00 Test Item Value Reference Range Interpretation Comments RDW (test code = RDW) 13.8 11.5-14.5 [facility] HospitalDdvxapyCWTDRQIAWP0803-05-56 00:33:00 Test Item Value Reference Range Interpretation Comments MCHC (test code = MCHC) 33.9 32.0-36.0 [facility] HospitalBiaxxxhIMTHDRDZHJ4372-66-05 00:33:00 Test Item Value Reference Range Interpretation Comments MCH (test code = MCH) 32.4 pg 27.0-31.0 [facility] HospitalBtpymlgATWRQBLYDJ6020-31-19 00:33:00 Test Item Value Reference Range Interpretation Comments Basophils # (test code 0.2 See_Comment [Aut omated message] The = Basophils #) system which generated this result tra nsmitted reference range : <=0.2. The reference r lala was not used to int erpret this result as normal/abnormal . [facility] HospitalOlwfrvkQZYLBBNVNN0235-96-21 00:33:00 Test Item Value Reference Range Interpretation Comments Eosinophils # (test code 0.6 See_Comment [A utomated message] The = Eosinophils #) system whic h generated this result tra nsmitted reference range : <=0.5. The reference r lala was not used to int erpret this result as normal/abnormal . [facility] HospitalIrmfbwfOQOTUNDKHA3931-12-47 00:33:00 Test Item Value Reference Range Interpretation Comments Monocytes # (test code 0.9 See_Comment [Aut omated message] The = Monocytes #) system which generated this result tra nsmitted reference range : <=0.8. The reference r lala was not used to int erpret this result as normal/abnormal . [facility] HospitalQsrsipoXXGRZBMKLX0713-95-83 00:33:00 Test Item Value Reference Range Interpretation Comments Lymphocytes # (test code = Lymphocytes 3.4 1.0-5.5 #) [facility] HospitalMpnfugyTQSSUJDYCS5926-52-21 00:33:00 Test Item Value Reference Range Interpretation Comments Monocytes (test code = Monocytes) 6.8 2.0-12.0 [facility] HospitalYvvgoejPIVWDSSPZH8010-10-81 00:33:00 Test Item Value Reference Range Interpretation Comments Lymphocytes (test code = Lymphocytes) 24.9 20.0-40.0 [facility] HospitalDoyykvuNHZTKOGHHI3726-79-16 00:33:00 Test Item Value Reference Range Interpretation Comments Segs (test code = Segs) 62.7 45.0-75.0 [facility] HospitalIpebsvlCOUMSJKSCR4766-88-42 00:33:00 Test Item Value Reference Range Interpretation Comments Segs-Bands # (test code = Segs-Bands #) 8.5 1.5-8.1 [facility] HospitalUcuajwwDWVIBBDTSO1628-47-52 00:33:00 Test Item Value Reference Range Interpretation Comments Basophils (test code = 1.2 See_Comment [Aut omated message] The Basophils) system which ge nerated this result tra nsmitted reference range : <=1.0. The reference r lala was not used to int erpret this result as normal/abnormal . [facility] HospitalLuhlxrqLRKTCANOWW8139-32-02 00:33:00 Test Item Value Reference Range Interpretation Comments Eosinophils (test code = 4.4 See_Comment [A utomated message] The Eosinophils) system which ge nerated this result tra nsmitted reference range : <=4.0. The reference r lala was not used to int erpret this result as normal/abnormal . [facility] ArlingtonWohvukdLMQTNA2739-93-36 00:33:00 Test Item Value Reference Range Interpretation Comments LDL (Calculated) (test code = LDL 16 (Calculated)) [facility] ArlingtonZvqtymqFBFQFT1730-10-91 00:33:00 Test Item Value Reference Range Interpretation Comments VLDL (test code = VLDL) 53 [facility] ArlingtonWhmkcgnKJNRAK6089-21-19 00:33:00 Test Item Value Reference Range Interpretation Comments HDL (test code = HDL) 29 [facility] ArlingtonDzdavuqFMEOVG3374-91-69 00:33:00 Test Item Value Reference Range Interpretation Comments Trig (test code = Trig) 266 [facility] ArlingtonPxcottjUTPMLU5936-41-42 00:33:00 Test Item Value Reference Range Interpretation Comments Chol (test code = Chol) 98 [facility]lakeEgookcbOFFRQT6449-61-25 00:33:00 Test Item Value Reference Range Interpretation Comments CHD Risk (test code = CHD Risk) 3.38 4.00-7.30 [facility] GLUCOSE EIXNHVP6461-55-40 17:42:00 Test Item Value Reference Range Interpretation Comments Gluc POC Lifscn (test code = Gluc POC 215 70-99 H Lifscn) [facility] GLUCOSE XXTRTPQ7632-65-55 17:42:00 Test Item Value Reference Range Interpretation Comments Comment1 (test code = Comment1) Sliding Scale [facility] GLUCOSE NOUMKRG9873-67-21 11:33:00 Test Item Value Reference Range Interpretation Comments Gluc POC Lifscn (test code = Gluc POC 148 70-99 H Lifscn) [facility]lakeQozuxrqGYYQLEONP4259-85-40 08:05:00 Test Item Value Reference Range Interpretation Comments Troponin-I (test code no gt See_Comment N [Auto mated message] The = Troponin-I) system which g enerated this result transmit cecelia reference range : <=0.40. The reference r lala was not used to interpr et this result as peyton l/abnormal. [facility]lakeIttdvtyDHBSVHGWX8528-93-22 08:05:00 Test Item Value Reference Range Interpretation Comments Troponin-T (test code no gt See_Comment N [Auto mated message] The = Troponin-T) system which g enerated this result transmit cecelia reference range : <=0.100. The reference r lala was not used to interpr et this result as peyton l/abnormal. [facility]lakeAkdplsvCIZIQADRX6460-89-40 08:05:00 Test Item Value Reference Range Interpretation Comments Myoglobin (test code = Myoglobin) 52 25-72 N [facility]lakeCrinmcpVVPPXOGYU3447-55-65 08:05:00 Test Item Value Reference Range Interpretation Comments Total CK (test code = Total CK) 118 12-191 N [facility]lakeSfvygigVNUPCHGKI6180-47-00 08:05:00 Test Item Value Reference Range Interpretation Comments CK MB Index (test 1.6 See_Comment N [Automate d message] The code = CK MB Index) system w [facility] generated this result transmit cecelia reference range : <=2.5. The reference range was not used to interpr et this result as peyton l/abnormal. [facility]lakeRnutqclKEUVITFQQ3952-57-45 08:05:00 Test Item Value Reference Range Interpretation Comments CK MB (test code = CK MB) 1.9 0.5-3.6 N [facility]lakeUdxqnyxONPOMNOAV2432-42-11 01:52:00 Test Item Value Reference Range Interpretation Comments CK MB (test code = CK MB) 1.7 0.5-3.6 N [facility]lakeEdjzzqcAYUGZVHIW1974-56-24 01:52:00 Test Item Value Reference Range Interpretation Comments CK MB Index (test 1.4 See_Comment N [Automate d message] The code = CK MB Index) system w [facility] generated this result transmit cecelia reference range : <=2.5. The reference range was not used to interpr et this result as peyton l/abnormal. [facility]lakeUjobohvJXLYEWCKJ9678-44-93 01:52:00 Test Item Value Reference Range Interpretation Comments Troponin-I (test code no gt See_Comment N [Auto mated message] The = Troponin-I) system which g enerated this result transmit cecelia reference range : <=0.40. The reference r lala was not used to interpr et this result as peyton l/abnormal. [facility]lakeVfadafcDJXGONZWG0906-69-85 01:52:00 Test Item Value Reference Range Interpretation Comments Troponin-T (test code no gt See_Comment N [Auto mated message] The = Troponin-T) system which g enerated this result transmit cecelia reference range : <=0.100. The reference r lala was not used to interpr et this result as peyton l/abnormal. [facility]lakeEblwmnsWFEOYYIOE4634-40-57 01:52:00 Test Item Value Reference Range Interpretation Comments Total CK (test code = Total CK) 122 12-191 N [facility] GLUCOSE [id number] 00:07:00 Test Item Value Reference Range Interpretation Comments Gluc POC Lifscn (test code = Gluc POC 105 70-99 H Lifscn) [facility]lakeAhcjapiUTHBQOAKB6236-55-07 16:16:00 Test Item Value Reference Range Interpretation Comments Magnesium Lvl (test code = Magnesium 1.5 1.8-2.4 L Lvl) [facility]lakeAjpbbcaYJXJVTFXW7676-53-70 16:16:00 Test Item Value Reference Range Interpretation Comments Phosphorus (test code = Phosphorus) 2.4 2.5-4.5 L [facility] SouthlakeRazpnmdFBRGOGQGS0724-71-41 16:16:00 Test Item Value Reference Range Interpretation Comments Troponin-I (test code no gt See_Comment N [Auto mated message] The = Troponin-I) system which g enerated this result transmit cecelia reference range : <=0.40. The reference r lala was not used to interpr et this result as peyton l/abnormal. [facility]XbuxupqSNVAJPUMO8718-11-45 16:16:00 Test Item Value Reference Range Interpretation Comments Troponin-T (test code no gt See_Comment N [Auto mated message] The = Troponin-T) system which g enerated this result transmit cecelia reference range : <=0.100. The reference r lala was not used to interpr et this result as peyton l/abnormal. [facility]aleGasfjcdASUFBFTFH2343-28-54 16:16:00 Test Item Value Reference Range Interpretation Comments Globulin (test code = Globulin) 3.4 2.0-4.0 N [facility]valeDtytmsiGRGHFIXDM2629-20-45 16:16:00 Test Item Value Reference Range Interpretation Comments A/G Ratio (test code = A/G Ratio) 1.2 0.7-1.6 N [facility]lakeZcnotyqYNTQDFZSK4298-11-94 16:16:00 Test Item Value Reference Range Interpretation Comments AGAP (test code = AGAP) 20.3 10.0-20.0 H [facility]valeDlhucrkVPAUSYGVP3258-87-63 16:16:00 Test Item Value Reference Range Interpretation Comments B/C Ratio (test code = B/C Ratio) 15 6-25 N [facility]lakeWldihnlLZTHZVZIQ7647-99-20 16:16:00 Test Item Value Reference Range Interpretation Comments Alk Phos (test code = Alk Phos) 111 39-136 N [facility]valeMdvfprmNGYWQPEIS8436-96-37 16:16:00 Test Item Value Reference Range Interpretation Comments ALT (test code = ALT) 63 See_Comment N [Auto mated message] The system which ge nerated this result transmit cecelia reference range : <=65. The reference range was not used to interpr et this result as peyton l/abnormal. [facility]lakeYssehskOYIKEIJDC4074-48-49 16:16:00 Test Item Value Reference Range Interpretation Comments Bili Total (test code = Bili Total) 0.5 0.2-1.3 N [facility]aleEsvuhiwXPZVHEXHC5090-26-40 16:16:00 Test Item Value Reference Range Interpretation Comments AST (test code = AST) 33 See_Comment N [Auto mated message] The system which ge nerated this result transmit cecelia reference range : <=37. The reference range was not used to interpr et this result as peyton l/abnormal. [facility]lakeWgdplxiFSIAVJSNX8463-59-65 16:16:00 Test Item Value Reference Range Interpretation Comments Albumin Lvl (test code = Albumin Lvl) 4.1 3.5-5.0 N [facility]lakeDbuqmvbVQFTXPNEL5957-76-36 16:16:00 Test Item Value Reference Range Interpretation Comments Total Protein (test code = Total 7.5 6.4-8.4 N Protein) [facility]lakeLehxdtdSAXYJKZOA6500-39-83 16:16:00 Test Item Value Reference Range Interpretation Comments CO2 (test code = CO2) 24 24-32 N [facility]lakeYsqcfzoPICDMYWMB9608-32-19 16:16:00 Test Item Value Reference Range Interpretation Comments Sodium Lvl (test code = Sodium Lvl) 140 135-145 N [facility]lakeMwsqwngYVPNTOYOU3966-40-14 16:16:00 Test Item Value Reference Range Interpretation Comments Chloride Lvl (test code = Chloride Lvl) 100 95-109 N [facility] SouthlakeGwcgbpxKLBSEENBD1740-07-33 16:16:00 Test Item Value Reference Range Interpretation Comments Calcium Lvl (test code = Calcium Lvl) 9.1 8.5-10.5 N [facility]lakeXrkuunbEEOGWMNYG6556-41-58 16:16:00 Test Item Value Reference Range Interpretation Comments Potassium Lvl (test code = Potassium 4.3 3.5-5.1 N Lvl) [facility]lakeElhwmmpVOWXHUXKF5913-10-85 16:16:00 Test Item Value Reference Range Interpretation Comments BUN (test code = BUN) 15 7-22 N [facility] SouthlakeYleylayFNMCNJNTF2269-68-35 16:16:00 Test Item Value Reference Range Interpretation Comments Glucose Lvl (test code = Glucose Lvl) 231 70-99 H [facility]lakeQxinqjhVELEAIIUL0498-05-94 16:16:00 Test Item Value Reference Range Interpretation Comments Creatinine Lvl (test code = Creatinine 1.0 0.5-1.4 N Lvl) [facility]lakePlzszqjRMCNDSOFX7068-92-09 16:16:00 Test Item Value Reference Range Interpretation Comments Total CK (test code = Total CK) 187 12-191 N [facility] HospitalAoleeslLQHAEMNUOI8857-04-13 16:16:00 Test Item Value Reference Range Interpretation Comments Monocytes # (test code 0.5 See_Comment N [Aut omated message] The = Monocytes #) system which generated this result tra nsmitted reference range : <=0.8. The reference r laal was not used to int erpret this result as normal/abnormal . [facility] HospitalPocmppmKQMESFTBDI7512-50-37 16:16:00 Test Item Value Reference Range Interpretation Comments Lymphocytes # (test code = Lymphocytes 2.4 1.0-5.5 N #) [facility] HospitalJstzfenMFABPXLNJB7063-13-08 16:16:00 Test Item Value Reference Range Interpretation Comments Basophils # (test code 0.1 See_Comment N [Aut omated message] The = Basophils #) system which generated this result tra nsmitted reference range : <=0.2. The reference r lala was not used to int erpret this result as normal/abnormal . [facility] HospitalXivjfvhIRCVPUVPNS6212-08-09 16:16:00 Test Item Value Reference Range Interpretation Comments Eosinophils # (test code 0.3 See_Comment N [A utomated message] The = Eosinophils #) system whic h generated this result tra nsmitted reference range : <=0.5. The reference r lala was not used to int erpret this result as normal/abnormal . [facility] HospitalIavxdvzSREPZXLLMS7823-42-59 16:16:00 Test Item Value Reference Range Interpretation Comments Lymphocytes (test code = Lymphocytes) 20.1 20.0-40.0 N [facility] HospitalIuwhnskCQRQRVIDIR7759-14-57 16:16:00 Test Item Value Reference Range Interpretation Comments Basophils (test code = 1.1 See_Comment H [Aut omated message] The Basophils) system which ge nerated this result tra nsmitted reference range : <=1.0. The reference r lala was not used to int erpret this result as normal/abnormal . [facility] HospitalCexdsxxYTYGTZXFGK0642-47-29 16:16:00 Test Item Value Reference Range Interpretation Comments Monocytes (test code = Monocytes) 3.8 2.0-12.0 N [facility] HospitalTunohrkRMBCBNCQKJ5444-48-54 16:16:00 Test Item Value Reference Range Interpretation Comments Segs (test code = Segs) 72.2 45.0-75.0 N [facility] HospitalNmeskdwUBUBRAZQNQ3048-24-72 16:16:00 Test Item Value Reference Range Interpretation Comments Segs-Bands # (test code = Segs-Bands #) 8.7 1.5-8.1 H [facility] HospitalMinldxgMARNTAWFVJ2461-99-05 16:16:00 Test Item Value Reference Range Interpretation Comments Eosinophils (test code = 2.8 See_Comment N [A utomated message] The Eosinophils) system which ge nerated this result tra nsmitted reference range : <=4.0. The reference r lala was not used to int erpret this result as normal/abnormal . [facility] HospitalEbrylucUDYFKVUPWJ7929-95-91 16:16:00 Test Item Value Reference Range Interpretation Comments INR (test code = INR) 0.91 0.85-1.17 N [facility] HospitalTrgfyonHCWGFTNZHJ7103-91-85 16:16:00 Test Item Value Reference Range Interpretation Comments PTT (test code = PTT) 30.2 s 22.9-35.8 N [facility] HospitalKuthkmhRCXZJUZLCX3335-61-29 16:16:00 Test Item Value Reference Range Interpretation Comments PT (test code = PT) 12.5 s 12.0-14.7 N [facility] HospitalRpzhgcrJPEVACTOZK2455-95-72 16:16:00 Test Item Value Reference Range Interpretation Comments MCV (test code = MCV) 96.0 80.0-94.0 H [facility] HospitalGtmricwPXMWEEYFTK9819-00-42 16:16:00 Test Item Value Reference Range Interpretation Comments Hct (test code = Hct) 46.9 42.0-54.0 N [facility] HospitalFagewlcDIABFNROXO5418-36-35 16:16:00 Test Item Value Reference Range Interpretation Comments RBC (test code = RBC) 4.88 4.70-6.10 N [facility] HospitalZkjdytsPUCWWBSQVA3369-76-01 16:16:00 Test Item Value Reference Range Interpretation Comments Hgb (test code = Hgb) 16.0 14.0-18.0 N [facility] HospitalXvluxheWZFPITULKJ7765-99-74 16:16:00 Test Item Value Reference Range Interpretation Comments WBC (test code = WBC) 12.0 3.7-10.4 H [facility] HospitalKevlniqRCYFDLXFMW7275-26-39 16:16:00 Test Item Value Reference Range Interpretation Comments MPV (test code = MPV) 8.8 7.4-10.4 N [facility] HospitalAtdcedyEUTLKJACHC6996-74-72 16:16:00 Test Item Value Reference Range Interpretation Comments Platelet (test code = Platelet) 201 133-450 N [facility]HdgtpusSPCEGEBRLH2682-23-20 16:16:00 Test Item Value Reference Range Interpretation Comments RDW (test code = RDW) 12.6 11.5-14.5 N [facility] HospitalWobljubHOUUKANBOU6075-46-03 16:16:00 Test Item Value Reference Range Interpretation Comments MCHC (test code = MCHC) 34.2 32.0-36.0 N [facility] HospitalKthuuiwHLWPOVVVZI8000-13-11 16:16:00 Test Item Value Reference Range Interpretation Comments MCH (test code = MCH) 32.9 pg 27.0-31.0 H [facility]NvlwjcvVDVARFEFGY4409-17-06 16:16:00 Test Item Value Reference Range Interpretation Comments CDC-HIV 1/2 Ab (test Negative *NA*(01/14/2012 code = CDC-HIV 1/2 11:16:00) Ab) [facility]
[2022-09-05 13:32] LABS: Absolute Lymphocytes (CBC) 1.7 K/uL (0.7-4.9); Hematocrit 46.6 % (39.6-49.0); MCV 98.2 fL (80-100); MPV 8.3 fL (7.6-11.3); RBC Red Blood Cell Count 4.74 M/uL (4.33-5.43)
[2022-09-05 13:50] LABS: Albumin 3.5 g/dL (3.4-5.0); Bilirubin Direct 0.2 mg/dL (0-0.2); Bilirubin Total 0.7 mg/dL (0.2-1.0); Potassium 4.1 mEq/L (3.5-5.1); Protein, Total 7.8 g/dL (6.4-8.2); Troponin High Sensitivity 32.8 pg/mL (<58.9)
--- NOTE | 2022-09-05 14:09 | RAD REPORT ---
EXAM DESCRIPTION: RAD - Chest Single View - 09/05/2022 2:01 pm CLINICAL HISTORY: hypotension, cough Chest pain. COMPARISON: Chest Single View dated 12/12/2021; Chest Single View dated 05/29/2021; Chest Single View dated 03/05/2021; Chest Single View dated 09/26/2019 FINDINGS: Portable technique limits examination quality. The lungs are grossly clear. The heart is mildly enlarged. No displaced fractures. IMPRESSION: No acute intrathoracic process suspected.
[2022-09-05] MEDS ORDERED: NA CHLORIDE 0.9% 500 ML ONE (15:54)
[2022-09-05] MEDS ORDERED: OSELTAMIVIR 75 MG CAP PO ONE (15:54)
[2022-09-05 16:01] LABS: Specific Gravity 1.018 (1.005-1.030); Urine Bacteria None Seen /HPF (<20); Urine Bilirubin NEGATIVE (Negative); Urine Blood Negative (Negative); Urine Clarity Turbid (Clear); Urine Color Yellow (Yellow); Urine Glucose NEGATIVE (Negative); Urine Mucus Slight /HPF (None Seen); Urine Protein 2+ (Negative); Urine RBC <5 /HPF (None Seen); Urine Urobilinogen Normal (Normal); Urine pH 5.5 (5.0-7.0)
--- NOTE | 2022-09-05 17:06 | EDPHYS ---
Physician Documentation [facility] Name: Frank Shaw Age: 72 yrs Sex: Male : 1950 Arrival Date: 09/05/2022 Time: 12:54 Bed 6 Private MD: Belkys Bunch ED Physician Nathanael Cooper HPI: 09/05 14:16 This 72 yrs old Male presents to ER via Wheelchair with complaints of Dizziness, Blood rn Pressure Problem. 14:16 The patient presents with dizziness, feeling faint, lightheadedness. Onset: The rn symptoms/episode began/occurred this morning. Modifying factors: The symptoms are alleviated by nothing, the symptoms are aggravated by standing up, changing position. Associated signs and symptoms: Pertinent negatives: abdominal pain, chest pain, diaphoresis, focal weakness, headache, seizure, shortness of breath, syncope, vomiting. Severity of symptoms: At their worst the symptoms were moderate in the emergency department the symptoms have improved. The patient has not experienced similar symptoms in the past. The patient has not recently seen a physician. Denies changes in medication, no chest pain, no sob, + cough but no fever. No syncope. No seizure. . Historical: - Allergies: 13:05 Methocarbamol; aa5 13:05 Robaxin; aa5 13:05 statins; aa5 - PMHx: 13:05 Atrial fibrillation; CAD; CHF; COPD; CVA; diabetes mellitus; Hernia; Hypertensive aa5 disorder; Myocardial infarction; Renal Disease; Hearing Loss with hearing aids; TIA; Left lung Pneumothorax; 13:09 Sleep apnea; aa5 - PSHx: 13:05 Back Sx; heart stents; aa5 - Immunization history:: Adult Immunizations unknown. - Family history:: not pertinent. - Social history:: Smoking status: Patient denies any tobacco usage or history of. - Hospitalizations: : No recent hospitalization is reported. ROS: 14:16 Constitutional: Negative for fever, chills, and weight loss, Eyes: Negative for injury, rn pain, redness, and discharge, Neck: Negative for injury, pain, and swelling, Cardiovascular: Negative for chest pain, palpitations, and edema, Respiratory: Negative for shortness of breath, cough, wheezing, and pleuritic chest pain, Abdomen/GI: Negative for abdominal pain, nausea, vomiting, diarrhea, and constipation, Back: Negative for injury and pain, MS/Extremity: Negative for injury and deformity, Skin: Negative for injury, rash, and discoloration, Neuro: Negative for headache, numbness, tingling, and seizure. Exam: 14:16 Constitutional: This is a well developed, well nourished patient who is awake, alert, rn and in no acute distress. Joking and laughing. Head/Face: Normocephalic, atraumatic. ENT: dry MM Cardiovascular: Irregular rhythm, regular rate. No pulse deficits. Respiratory: No increased work of breathing, no retractions or nasal flaring. Abdomen/GI: Soft, non-tender Skin: Warm, dry, no cellulitis MS/ Extremity: Pulses equal, no cyanosis. Neuro: Awake and alert, GCS 15, oriented to person, place, time, and situation. 16:02 ECG was reviewed by the Attending Physician. rn Vital Signs: 13:00 BP 110 / 76; Pulse 65; Resp 16 S; Temp 97.1(TE); Pulse Ox 99% on R/A; aa5 17:09 BP 116 / 74; Pulse 61; Resp 16; Pulse Ox 99% on R/A; ld1 MDM: 12:58 Patient medically screened. rn 16:04 Differential diagnosis: cardiac arrhythmia, generalized weakness, hyperventilation, rn hypovolemia, idiopathic dizziness, influenza, COVID. Data reviewed: vital signs, nurses notes, lab test result(s), EKG, radiologic studies, plain films, and as a result, I will discharge patient. Consideration of Admission/Observation Escalation of care including admission/observation considered. Counseling: I had a detailed discussion with the patient and/or guardian regarding: the historical points, exam findings, and any diagnostic results supporting the discharge/admit diagnosis, lab results, radiology results, the need for outpatient follow up, to return to the emergency department if symptoms worsen or persist or if there are any questions or concerns that arise at home. Response to treatment: the patient's symptoms have mildly improved after treatment, and as a result, I will discharge patient. Special discussion: I discussed with the patient/guardian in detail that at this point there is no indication for admission to the hospital. It is understood, however, that if the symptoms persist or worsen the patient needs to return immediately for re-evaluation. ED course: Pt feels better, no UTI, + Flu, neg cxr and no oxygen requirement. lactate normal. Will dc home with tamiflu and return precautions. Trop neg. . 09/05 13:12 Order name: Basic Metabolic Panel; Complete Time: 14:14 rn 09/05 13:12 Order name: CBC with Diff; Complete Time: 14:14 rn 09/05 13:12 Order name: LFT's; Complete Time: 14:14 rn 09/05 13:12 Order name: NT PRO-BNP; Complete Time: 14:14 rn 09/05 13:12 Order name: Troponin HS; Complete Time: 14:14 rn 09/05 13:12 Order name: Lactate w/ 2H reflex if indic.; Complete Time: 14:14 rn 09/05 13:12 Order name: Blood Culture Adult (2) rn 09/05 13:12 Order name: Urinalysis w/ reflexes; Complete Time: 16:03 rn 09/05 13:12 Order name: COVID-19 SARS RT PCR; Complete Time: 16:03 rn 09/05 13:12 Order name: Flu; Complete Time: 15:38 rn 09/05 13:12 Order name: XRAY Chest (1 view); Complete Time: 14:14 rn 09/05 13:12 Order name: EKG; Complete Time: 13:12 rn 09/05 13:12 Order name: Cardiac monitoring; Complete Time: 15:17 rn 09/05 13:12 Order name: EKG - Nurse/Tech; Complete Time: 15:17 rn 09/05 13:12 Order name: IV Saline Lock; Complete Time: 13:20 rn 09/05 13:12 Order name: Labs collected and sent; Complete Time: 13:20 rn 09/05 13:12 Order name: O2 Per Protocol; Complete Time: 15:17 rn 09/05 13:12 Order name: O2 Sat Monitoring; Complete Time: 15:17 rn EC:02 Rate is 78 beats/min. Rhythm is irregularly irregular. QRS [place] is Normal. QRS interval rn is normal. QT interval is normal. No Q waves. T waves are Normal. No ST changes noted. Clinical impression: Atrial Fibrillation. Interpreted by me. Reviewed by me. Administered Medications: 16:13 Drug: Oseltamivir PO 75 mg Route: PO; ko1 17:18 Follow up: Response: No adverse reaction ko1 16:14 Drug: NS 0.9% IV 500 ml Route: IV; Rate: bolus; Site: right antecubital; ko1 16:46 Follow up: IV Status: Completed infusion; IV Intake: 500ml aa5 Disposition Summary: 09/05/22 17:05 Discharge Ordered Location: Home rn Problem: new rn Symptoms: have improved rn Condition: Stable rn Diagnosis - Influenza due to influenza B virus rn - Dehydration rn Followup: rn - With: Private Physician - When: As needed - Reason: Recheck today's complaints, Re-evaluation by your physician Discharge Instructions: - Discharge Summary Sheet rn - Dehydration, Adult rn - Influenza, Adult rn Forms: - Medication Reconciliation Form rn - Thank You Letter rn - Antibiotic rn triage - Prescription Opioid Use rn Prescriptions: - Tamiflu 75 mg Oral Capsule - take 1 tablet by ORAL route every 12 hours for 5 days; 10 tablet; Refills: 0, rn Product Selection Permitted Signatures: Dispatcher [employer] Nathanael Young MD MD rn Calderon, Audri RN RN aa5 Paola Marmolejo, RN RN ko1
--- NOTE | 2022-09-05 17:06 | ER ---
Nurse's Notes [facility] Name: Frank Shaw Age: 72 yrs Sex: Male : 1950 Arrival Date: 09/05/2022 Time: 12:54 Bed 6 Private MD: Belkys Bunch Diagnosis: Influenza due to influenza B virus;Dehydration Presentation: 09/05 13:00 Chief complaint: Patient states: "my blood pressure has been low". Pt reports BP 74/46 aa5 at home. 13:00 Coronavirus screen: At this time, the client does not indicate any symptoms associated aa5 with coronavirus-19. Ebola Screen: Patient denies travel to an Ebola-affected area in the 21 days before illness onset. Initial Sepsis Screen: Does the patient meet any 2 criteria? No. Patient's initial sepsis screen is negative. Does the patient have a suspected source of infection? No. Patient's initial sepsis screen is negative. Risk Assessment: Do you want to hurt yourself or someone else? Patient reports no desire to harm self or others. Onset of symptoms was September 05, 2022. 13:00 Acuity: AGUS 3 aa5 13:00 Method Of Arrival: Wheelchair aa5 Historical: - Allergies: 13:05 Methocarbamol; aa5 13:05 Robaxin; aa5 13:05 statins; aa5 - PMHx: 13:05 Atrial fibrillation; CAD; CHF; COPD; CVA; diabetes mellitus; Hernia; Hypertensive aa5 disorder; Myocardial infarction; Renal Disease; Hearing Loss with hearing aids; TIA; Left lung Pneumothorax; 13:09 Sleep apnea; aa5 - PSHx: 13:05 Back Sx; heart stents; aa5 - Immunization history:: Adult Immunizations unknown. - Family history:: not pertinent. - Social history:: Smoking status: Patient denies any tobacco usage or history of. - Hospitalizations: : No recent hospitalization is reported. Screenin:18 [facility] ED Fall Risk Assessment (Adult) History of falling in the last 3 months, iw including since admission. Abuse screen: Denies threats or abuse. Denies injuries from another. Nutritional screening: No deficits noted. Tuberculosis screening: No symptoms or risk factors identified. Assessment: 15:18 General: Appears in no apparent distress. Behavior is calm, cooperative. Respiratory: iw Respiratory effort is even, unlabored, Respiratory pattern is regular. 16:46 Reassessment: Patient is alert, oriented x 3, equal unlabored respirations, skin aa5 warm/dry/pink. 17:17 Pain: Denies pain. ko1 Vital Signs: 13:00 BP 110 / 76; Pulse 65; Resp 16 S; Temp 97.1(TE); Pulse Ox 99% on R/A; aa5 17:09 BP 116 / 74; Pulse 61; Resp 16; Pulse Ox 99% on R/A; ld1 ED Course: 12:57 Patient arrived in ED. am2 12:58 Belkys Bunch is Private Physician. am2 12:58 Nathanael Cooper MD is Attending Physician. rn 13:00 Arm band placed on. aa5 13:07 Triage completed. aa5 13:20 Initial lab(s) drawn, by me, sent to lab. Inserted saline lock: 20 gauge in right aa5 antecubital area, using aseptic technique. Blood collected. 14:03 XRAY Chest (1 view) In Process Unspecified. EDMS 15:17 Flu Sent. iw 15:17 COVID-19 SARS RT PCR Sent. iw 15:18 Patient has correct armband on for positive identification. Client placed on continuous iw cardiac and pulse oximetry monitoring. NIBP monitoring applied. 15:56 Paola Marmolejo, RN is Primary Nurse. ko1 17:17 No provider procedures requiring assistance completed. IV discontinued, intact, ko1 bleeding controlled, No redness/swelling at site. Pressure dressing applied. Administered Medications: 16:13 Drug: Oseltamivir PO 75 mg Route: PO; ko1 17:18 Follow up: Response: No adverse reaction ko1 16:14 Drug: NS 0.9% IV 500 ml Route: IV; Rate: bolus; Site: right antecubital; ko1 16:46 Follow up: IV Status: Completed infusion; IV Intake: 500ml aa5 Medication: 15:18 VIS not applicable for this client. iw Intake: 16:46 IV: 500ml; Total: 500ml. aa5 Outcome: 17:05 Discharge ordered by . rn 17:17 Discharged to home ambulatory, with family. ko1 17:17 Condition: stable 17:17 Discharge instructions given to patient, family, Instructed on discharge instructions, follow up and referral plans. medication usage, Demonstrated understanding of instructions, follow-up care, medications, Prescriptions given X 1. 17:18 Patient left the ED. ko1 Signatures: Dispatcher [employer] EDJoana Dobbs, RN Nathanael Stewart MD MD rn Calderon, Audri RN RN [email or web address] Tianna Claire Lauren, RN RN ld1 Paola Marmolejo RN RN ko1
[2022-09-05 17:44] VITALS: TEMP 97.1; O2SAT 99
[2022-09-05 17:45] VITALS: BP 116/74
--- NOTE | 2022-09-06 05:50 | EKG ---
Test Date: 2022-09-05 Test Time: 15:08:58 Librarian Specialist: CARI MEASUREMENT RESULTS: Intervals: Rate: 78 MO: QRSD: 102 QT: 408 QTc: 465 Bison: P: MO: QRS: 96 T: 76 INTERPRETIVE STATEMENTS: Atrial fibrillation Low voltage QRS Nonspecific T wave abnormality, probably digitalis effect Prolonged QT Abnormal ECG Compared to ECG 12/12/2021 08:57:12 Prolonged QT interval now present Ventricular premature complex(es) no longer present Possible ischemia no longer present T-wave abnormality still present Electronically Signed On 09-06-22 05:48:41 CDT by Ray Barton
== END 2022-09-05 17:18 | disposition home or self-care (01) ==
LOC: ER 12:54
DX: J10.1 Influenza due to other identified influenza virus with other respiratory manifestations (principal); E86.0 Dehydration; E11.22 Type 2 diabetes mellitus with diabetic chronic kidney disease; N18.9 Chronic kidney disease, unspecified; Z20.822 Contact with and (suspected) exposure to COVID-19; Z95.818 Presence of other cardiac implants and grafts; Z88.8 Allergy status to other drugs, medicaments and biological substances
CPT/HCPCS: 93005; 87040; 85025; 81001; 80048; 36415; 80076; 83605; 84484; 83880; 87804 ×2; 71045; 96360; 99284; U0003; J7040

== ENCOUNTER 2023-07-07 04:42 | Inpatient (IN) | payer OTHER ==
[2023-07-07 05:34] LABS: PT Prothrombin Time 36.6 SECONDS (9.5-12.5); Protime INR 3.45
[2023-07-07 05:36] LABS: Absolute Basophils 0.1 K/uL (0-0.5); Absolute Eosinophils 0.4 K/uL (0-0.5); Absolute Lymphocytes (CBC) 1.2 K/uL (0.7-4.9); Absolute Monocytes 0.9 K/uL (0.1-1.3); Absolute Neutrophil 10.5 K/uL (1.8-8.0); Basophils % 0.7 % (0-1.3); Hematocrit 45.1 % (39.6-49.0); Hemoglobin 15.7 g/dL (13.6-17.9); Lymphocytes % 8.9 % (15.3-44.8); MCHC 34.8 g/dL (32.0-36.0); MCV 97.8 fL (80-100); MPV 8.1 fL (7.6-11.3); Neutrophils % 80.4 % (41.7-73.7); Nucleated Red Blood Cells % 0.1 % (0-0); Platelets 176 thou/uL (152-406); RBC Red Blood Cell Count 4.61 M/uL (4.33-5.43); Red Cell Distribution Width 13.8 % (12.1-15.2)
[2023-07-07 05:54] LABS: Albumin 3.5 g/dL (3.4-5.0); Albumin/Globulin Ratio 0.8 (1.1-1.8); Anion Gap 11.2 mEq/L (5.0-15.0); Bilirubin Direct 0.3 mg/dL (0-0.2); Bilirubin Indirect, Calculated 0.6 mg/dL (0.2-0.8); Bilirubin Total 0.9 mg/dL (0.2-1.0); Globulin 4.5 g/dL (2.3-3.5); Magnesium 2.1 mg/dL (1.6-2.4); Potassium 4.2 mEq/L (3.5-5.1)
--- NOTE | 2023-07-07 06:14 | ER ---
Nurse's Notes [facility] Name: Frank Shaw Age: 73 yrs Sex: Male : 1950 Arrival Date: 07/07/2023 Time: 04:42 Bed 4 Private MD: Diagnosis: Chest pain, CHF, dyspnea Presentation: 07/06 05:01 Chief complaint: Patient states: CP, cough and indigestion since Friday. Pain worsens lg3 with inhalation. pain 8/. Coronavirus screen: Client denies travel out of the [place] in the last 14 days. At this time, the client does not indicate any symptoms associated with coronavirus-19. Ebola Screen: No symptoms or risks identified at this time. Initial Sepsis Screen: Does the patient meet any 2 criteria? No. Patient's initial sepsis screen is negative. Does the patient have a suspected source of infection? No. Patient's initial sepsis screen is negative. Risk Assessment: Do you want to hurt yourself or someone else? Patient reports no desire to harm self or others. Onset of symptoms was June 06, 2023. 05:01 Method Of Arrival: EMS: [facility] lg3 05:01 Acuity: AGUS 3 lg3 Triage Assessment: 05:04 General: Appears in no apparent distress. uncomfortable, Behavior is calm, cooperative. lg3 Pain: Complains of pain in chest Pain does not radiate. Pain currently is 8 out of 10 on a pain scale. Is intermittent, episodic. EENT: No deficits noted. No signs and/or symptoms were reported regarding the EENT system. Neuro: No deficits noted. Dsouza Agitation-Sedation Scale (RASS): 0 - Alert and Calm Level of Consciousness is awake, alert, obeys commands, Oriented to person, place, time, situation. Cardiovascular: Reports chest pain, Heart tones S1 S2 present Capillary refill < 3 seconds Clubbing of nail beds is absent JVD is absent Patient's skin is warm and dry. Rhythm is atrial fibrillation Chest pain is located in substernal area episodes are intermittent is aggravated by breathing. Respiratory: No deficits noted. Reports cough that is productive, pain with cough pain with respiration Airway is patent Respiratory effort is even, unlabored, Respiratory pattern is regular, symmetrical, Breath sounds are clear bilaterally. GI: No deficits noted. No signs and/or symptoms were reported involving the gastrointestinal system. Abdomen is round non-distended, obese, Bowel sounds present X 4 quads. Abd is soft and non tender X 4 quads. : No deficits noted. No signs and/or symptoms were reported regarding the genitourinary system. Derm: No deficits noted. No signs and/or symptoms reported regarding the dermatologic system. Skin is intact, is healthy with good turgor, Skin is dry, Skin is normal, Skin temperature is warm. Musculoskeletal: No deficits noted. No signs and/or symptoms reported regarding the musculoskeletal system. Circulation, motion, and sensation intact. Range of motion: intact in all extremities. Historical: - Allergies: 05:04 Methocarbamol; lg3 05:04 Robaxin; lg3 05:04 statins; lg3 - Home Meds: 05:04 cetirizine 10 mg oral tablet daily [Active]; metoprolol tartrate 50 mg Oral tab 1 tab lg3 daily [Active]; glimepiride 1 mg oral tablet every morning [Active]; furosemide 40 mg Oral tab 1 tab once daily [Active]; isosorbide mononitrate 20 mg Oral tab 1 tab daily [Active]; nifedipine 60 mg Oral tr24 1 tab once daily [Active]; tamsulosin 0.4 mg oral capsule daily [Active]; losartan 50 mg Oral tab 1 tab once daily [Active]; montelukast 10 mg Oral tab 1 tab once daily [Active]; Xarelto 20 mg Oral tab 1 tab once daily [Active]; nitroglycerin 0.4 mg SL subl 1 tab as needed [Active]; fluticasone propionate 50 mcg/actuation intranasal spray, suspension [Active]; albuterol sulfate 90 mcg/actuation Inhl HFA Aerosol Inhaler [Active]; - PMHx: 05:04 Atrial fibrillation; CAD; CHF; COPD; CVA; diabetes mellitus; Hearing Loss with hearing lg3 aids; Hernia; Hypertensive disorder; Left lung Pneumothorax; Myocardial infarction; Renal Disease; Sleep Apnea; TIA; - PSHx: 05:04 back sx; Heart Stents; lg3 - Immunization history:: Adult Immunizations up to date, Flu vaccine is not up to date. - Social history:: Smoking status: Patient reports the use of cigarette tobacco products, smokes one pack cigarettes per day. Patient/guardian denies using alcohol, street drugs. Screenin:22 [facility] ED Fall Risk Assessment (Adult) History of falling in the last 3 months, lg3 including since admission No falls in past 3 months (0 pts). Abuse screen: Denies threats or abuse. Denies injuries from another. Nutritional screening: No deficits noted. Tuberculosis screening: No symptoms or risk factors identified. Assessment: 05:22 General: see triage assessment. Pain: Complains of pain in chest Pain does not radiate. lg3 Pain currently is 8 out of 10 on a pain scale. Pain began 2-3 days ago. 07:02 General: Appears uncomfortable, Behavior is cooperative. Pain: Complains of pain in rs5 chest Pain does not radiate. Pain currently is 7 out of 10 on a pain scale. Quality of pain is described as aching, Is continuous. Neuro: Level of Consciousness is awake, alert, obeys commands, Oriented to person, place, time, situation. Cardiovascular: Patient's skin is warm and dry. Rhythm is sinus tachycardia. Respiratory: Reports cough that is productive, pain with cough pain with respiration Airway is patent Respiratory effort is even, unlabored, Respiratory pattern is regular, symmetrical. GI: Abdomen is round non-distended, Abd is soft and non tender X 4 quads. : No signs and/or symptoms were reported regarding the genitourinary system. EENT: No signs and/or symptoms were reported regarding the EENT system. Derm: Skin is intact, Skin is pink, warm \T\ dry. Musculoskeletal: Range of motion: intact in all extremities. 07:03 Reassessment: provider notified pt is experiencing pain and of pt's pulse. rs5 07:30 Reassessment: Provider notified of pt's elevated pulse and how pt is continuing to rs5 experience pain. 07:30 Reassessment: No changes from previously documented assessment. rs5 08:01 Reassessment: Patient and/or family updated on plan of care and expected duration. Pain rs5 level reassessed. Patient is alert, oriented x 3, equal unlabored respirations, skin warm/dry/pink. Pain: Complains of pain in chest Pain does not radiate. Pain currently is 7 out of 10 on a pain scale. Quality of pain is described as aching, Is continuous. 08:01 Reassessment: provider notified pt is continuing to experience pain and of pt's rs5 elevated pulse. Vital Signs: 05:01 BP 142 / 74; Pulse 59; Resp 21 S; Temp 98.1(O); Pulse Ox 100% on R/A; Weight 112.49 kg lg3 (M); Height 5 ft. 10 in. (R); Pain 8/10; 06:47 BP 163 / 116; Pulse 69; Resp 18 S; Pulse Ox 100% on R/A; lg3 07:00 BP 136 / 103; Pulse 133; Resp 19; Temp 97.8(O); Pulse Ox 97% on R/A; rs5 07:30 BP 137 / 106; Pulse 149; Resp 18; Pulse Ox 97% on R/A; rs5 08:00 BP 134 / 102; Pulse 133; Resp 18; Pulse Ox 97% on R/A; rs5 05:01 Body Mass Index 35.58 (112.49 kg, 177.8 cm) lg3 05:01 Pain Scale: Adult lg3 ED Course: 04:43 Patient arrived in ED. cm10 04:48 Breana Arndt MD is Attending Physician. sp3 05:01 Cindy Burris RN is Primary Nurse. lg3 05:03 XRAY Chest (1 view) In Process Unspecified. EDMS 05:04 Triage completed. lg3 05:04 Arm band placed on right wrist. lg3 05:22 Patient has correct armband on for positive identification. Placed in gown. Bed in low lg3 position. Call light in reach. Side rails up X 1. Client placed on continuous cardiac and pulse oximetry monitoring. NIBP monitoring applied. awake overnight monitor on. Door closed. Noise minimized. Warm blanket given. Family accompanied patient. 05:22 Inserted saline lock: 20 gauge in left antecubital area, using aseptic technique. Blood lg3 collected. Patient maintains SpO2 saturation greater than 95% on room air. 05:23 Basic Metabolic Panel Sent. lg3 05:23 CBC with Diff Sent. lg3 05:23 LFT's Sent. lg3 05:23 Magnesium Sent. lg3 05:23 NT PRO-BNP Sent. lg3 05:23 PT-INR Sent. lg3 05:24 Troponin HS Sent. lg3 06:13 Flori Santo MD is Hospitalizing Provider. sp3 07:21 Primary Nurse role handed off by Cindy Burris RN bd 08:50 No provider procedures requiring assistance completed. rs5 08:50 Patient admitted, IV remains in place. rs5 Administered Medications: 06:41 Drug: Furosemide IVP 40 mg IVP once; give over 2 minutes Route: IVP; Site: left lg3 antecubital; 07:14 Drug: morphine IVP or IV 2 mg IVP once over 4 mins Route: IVP; Infused Over: 4 mins; iw Site: left antecubital; 07:14 Drug: MethylPrednisoLONE IVP 60 mg IVP once Route: IVP; Site: left antecubital; iw Medication: 08:30 VIS not applicable for this client. rs5 Outcome: 06:14 Decision to Hospitalize by Provider. sp3 08:40 Admitted to ICU accompanied by nurse, on monitor, with chart, rs5 08:40 Condition: stable 08:40 Instructed on the need for admit, Demonstrated understanding of instructions, follow-up care, 08:40 Instructed on rs5 08:41 Patient left the ED. rs5 Signatures: Dispatcher [employer] EDMS Ceci Macario Irene, RN RN iw Cindy Burris RN RN lg3 Breana Arndt MD MD sp3 Alan Landers RN RN rs5 Sirisha Hale RN RN cm10 Corrections: (The following items were deleted from the chart) 09:26 07:30 Reassessment: Provider notified of pt's elevated pulse and how pt is continuing rs5 to experience pain. rs5 09:31 08:53 Patient left the ED. rs5 rs5 : 08:50 Admitted to ICU accompanied by nurse, on monitor, with chart, rs5 rs5 :31 08:50 Condition: stable rs5 rs5 :31 08:50 Instructed on the need for admit, Demonstrated understanding of instructions, rs5 follow-up care, rs5
--- NOTE | 2023-07-07 06:14 | EDPHYS ---
Physician Documentation [facility] Name: Frank Shaw Age: 73 yrs Sex: Male : 1950 Arrival Date: 07/07/2023 Time: 04:42 Bed 4 Private MD: ED Physician Breana Arndt HPI: 07/06 04:52 This 73 yrs old Male presents to ER via Unassigned with complaints of Chest Pain. sp3 04:52 73-year-old male with a history of acute coronary syndrome, multiple acute MIs and 5 sp3 stents, COPD, atrial fibrillation currently on Xarelto, hypertension presents to the ED for approximately 2 days of intermittant chest pain on the right side that started while at rest. He denies any other symptoms including headache, back pain, syncope, shortness of breath, abdominal pain, nausea, vomiting, diarrhea, left arm pain, jaw pain, rash, fever, known sick contacts, exertion, travel history, any other ROS at this time. . Historical: - Allergies: 05:04 Methocarbamol; lg3 05:04 Robaxin; lg3 05:04 statins; lg3 - Home Meds: 05:04 cetirizine 10 mg oral tablet daily [Active]; metoprolol tartrate 50 mg Oral tab 1 tab lg3 daily [Active]; glimepiride 1 mg oral tablet every morning [Active]; furosemide 40 mg Oral tab 1 tab once daily [Active]; isosorbide mononitrate 20 mg Oral tab 1 tab daily [Active]; nifedipine 60 mg Oral tr24 1 tab once daily [Active]; tamsulosin 0.4 mg oral capsule daily [Active]; losartan 50 mg Oral tab 1 tab once daily [Active]; montelukast 10 mg Oral tab 1 tab once daily [Active]; Xarelto 20 mg Oral tab 1 tab once daily [Active]; nitroglycerin 0.4 mg SL subl 1 tab as needed [Active]; fluticasone propionate 50 mcg/actuation intranasal spray, suspension [Active]; albuterol sulfate 90 mcg/actuation Inhl HFA Aerosol Inhaler [Active]; - PMHx: 05:04 Atrial fibrillation; CAD; CHF; COPD; CVA; diabetes mellitus; Hearing Loss with hearing lg3 aids; Hernia; Hypertensive disorder; Left lung Pneumothorax; Myocardial infarction; Renal Disease; Sleep Apnea; TIA; - PSHx: 05:04 back sx; Heart Stents; lg3 - Immunization history:: Adult Immunizations up to date, Flu vaccine is not up to date. - Social history:: Smoking status: Patient reports the use of cigarette tobacco products, smokes one pack cigarettes per day. Patient/guardian denies using alcohol, street drugs. ROS: 04:53 Constitutional: Negative for fever, chills, and weight loss, Eyes: Negative for injury, sp3 pain, redness, and discharge, Neck: Negative for injury, pain, and swelling, Abdomen/GI: Negative for abdominal pain, nausea, vomiting, diarrhea, and constipation, Back: Negative for injury and pain, : Negative for injury, bleeding, discharge, and swelling, MS/Extremity: Negative for injury and deformity, Skin: Negative for injury, rash, and discoloration, Neuro: Negative for headache, weakness, numbness, tingling, and seizure, Psych: Negative for depression, anxiety, suicide ideation, homicidal ideation, and hallucinations, Allergy/Immunology: Negative for hives, rash, and allergies, Endocrine: Negative for neck swelling, polydipsia, polyuria, polyphagia, and marked weight changes, Hematologic/Lymphatic: Negative for swollen nodes, abnormal bleeding, and unusual bruising, 04:53 All other systems are negative, Exam: 04:53 Constitutional: This is a well developed, well nourished patient who is awake, alert, sp3 and in no acute distress. Head/Face: Normocephalic, atraumatic. Eyes: Pupils equal round and reactive to light, extra-ocular motions intact. Lids and lashes normal. Conjunctiva and sclera are non-icteric and not injected. Cornea within normal limits. Periorbital areas with no swelling, redness, or edema. ENT: Nares patent. No nasal discharge, no septal abnormalities noted. External auditory canals are clear. Oropharynx with no redness, swelling, or masses, exudates, or evidence of obstruction, uvula midline. Mucous membranes moist. Neck: Trachea midline, no thyromegaly or masses palpated, and no cervical lymphadenopathy. Supple, full range of motion without nuchal rigidity, or vertebral point tenderness. No Meningismus. Chest/axilla: Normal chest wall appearance and motion. Nontender with no deformity. No lesions are appreciated. Cardiovascular: Regular rate and rhythm with a normal S1 and S2. No gallops, murmurs, or rubs. Normal PMI, no JVD. No pulse deficits. Respiratory: Lungs have equal breath sounds bilaterally, clear to auscultation and percussion. No rales, rhonchi or wheezes noted. No increased work of breathing, no retractions or nasal flaring. Abdomen/GI: Soft, non-tender, with normal bowel sounds. No distension or tympany. No guarding or rebound. No evidence of tenderness throughout. Back: No spinal tenderness. No costovertebral tenderness. Full range of motion. Skin: Warm, dry with normal turgor. Normal color with no rashes, no lesions, and no evidence of cellulitis. MS/ Extremity: Pulses equal, no cyanosis. Neurovascular intact. Full, normal range of motion. Neuro: Awake and alert, GCS 15, oriented to person, place, time, and situation. Cranial nerves II-XII grossly intact. Motor strength 5/5 in all extremities. Sensory grossly intact. Cerebellar exam normal. Normal gait. Psych: Awake, alert, with orientation to person, place and time. Behavior, mood, and affect are within normal limits. 04:55 ECG was reviewed by the Attending Physician. EKG demonstrates atrial fibrillation at sp3 114 bpm with multiple PVCs, mildly leftward axis and nonspecific diffuse ST's ST changes without evidence of acute ischemia. Vital Signs: 05:01 BP 142 / 74; Pulse 59; Resp 21 S; Temp 98.1(O); Pulse Ox 100% on R/A; Weight 112.49 kg lg3 (M); Height 5 ft. 10 in. (R); Pain 8/10; 06:47 BP 163 / 116; Pulse 69; Resp 18 S; Pulse Ox 100% on R/A; lg3 07:00 BP 136 / 103; Pulse 133; Resp 19; Temp 97.8(O); Pulse Ox 97% on R/A; rs5 07:30 BP 137 / 106; Pulse 149; Resp 18; Pulse Ox 97% on R/A; rs5 08:00 BP 134 / 102; Pulse 133; Resp 18; Pulse Ox 97% on R/A; rs5 05:01 Body Mass Index 35.58 (112.49 kg, 177.8 cm) lg3 05:01 Pain Scale: Adult lg3 MDM: 04:48 Patient medically screened. sp3 04:54 Data reviewed: vital signs, nurses notes, EMS record, old medical records, lab test sp3 result(s), EKG, radiologic studies. ED course: 73-year-old male with extensive past medical history now with recurrent chest pain. Patient will require hospitalization and cardiology consultation secondary to high heart score given his multitude of risk factors. Patient is stable and pain-free at the moment. I am not highly suspicious for pneumonia, PE, aortic pathology, sepsis, shock or any other critical process. Will obtain EKG, chest x-ray and labs and if workup is negative, admit patient to medicine with cardiology consult. Patient's primary care doctor is Dr. Granger and his take down inspector is Dr. Lopez.. 06:13 ED course: Patient will be admitted to hospitalist service and Lasix 40 mg given IV.. sp3 07/06 04:48 Order name: Basic Metabolic Panel; Complete Time: 06:10 sp3 07/06 04:48 Order name: CBC with Diff; Complete Time: 06:10 sp3 07/06 04:48 Order name: LFT's; Complete Time: 06:10 sp3 07/06 04:48 Order name: Magnesium; Complete Time: 06:10 sp3 07/06 04:48 Order name: NT PRO-BNP; Complete Time: 06:10 sp3 07/06 04:48 Order name: PT-INR; Complete Time: 06:10 sp3 07/06 04:48 Order name: Troponin HS; Complete Time: 06:10 sp3 07/06 07:04 Order name: Basic Metabolic Panel EDMS 07/06 07:04 Order name: Basic Metabolic Panel EDMS 07/06 07:04 Order name: CBC with Automated Diff EDMS 07/06 07:04 Order name: CBC with Automated Diff EDMS 07/06 07:04 Order name: Troponin High Sensitivity EDMS 07/06 04:48 Order name: XRAY Chest (1 view) sp3 07/06 07:12 Order name: Echo with Doppler EDMS 07/06 04:48 Order name: EKG; Complete Time: 04:49 sp3 07/06 07:04 Order name: CONS Physician Consult EDMS 07/06 04:48 Order name: Cardiac monitoring; Complete Time: 05: sp3 07/06 04:48 Order name: EKG - Nurse/Tech; Complete Time: 05: sp3 07/06 04:48 Order name: IV Saline Lock; Complete Time: 05: sp3 07/06 04:48 Order name: Labs collected and sent; Complete Time: 05: sp3 07/06 04:48 Order name: O2 Per Protocol; Complete Time: 05: sp3 07/06 04:48 Order name: O2 Sat Monitoring; Complete Time: 05: sp3 Administered Medications: 06:41 Drug: Furosemide IVP 40 mg IVP once; give over 2 minutes Route: IVP; Site: left lg3 antecubital; 07:14 Drug: morphine IVP or IV 2 mg IVP once over 4 mins Route: IVP; Infused Over: 4 mins; iw Site: left antecubital; 07:14 Drug: MethylPrednisoLONE IVP 60 mg IVP once Route: IVP; Site: left antecubital; iw Disposition Summary: 07/07/23 06:14 Hospitalization Ordered Notes: Hospitalization Status: Inpatient Admission sp3 Provider: Flori Santo spPk Condition: Stable sp3 Problem: an acute exacerbation sp3 Symptoms: have worsened sp3 Bed/Room Type: Standard sp3 Location: Intensive Care Unit(07/07/23 08:02) bd Room Assignment: 4-(07/07/23 08:02) bd Diagnosis - Chest pain, CHF, dyspnea sp3 Forms: - Medication Reconciliation Form sp3 - SBAR form sp3 - Leadership Thank You Letter sp3 Signatures: Dispatcher [employer] EDCeci Lau Irene, RN RN iw Able, Lacie, RN RN 3 Breana Arndt MD MD sp3 Corrections: (The following items were deleted from the chart) 07:12 07:04 Echo with Doppler ordered. EDDE EDDE 08:02 06:14 Telemetry/MedSurg (Inpatient) sp3 bd 08:02 06:14 sp3 bd
[2023-07-07] MEDS ORDERED: FUROSEMIDE 40 MG/4 ML VIAL ONE ×2 (06:23→07:34)
[2023-07-07] MEDS ORDERED: MORPHINE 2 MG/ML SYR ONE (07:07)
--- NOTE | 2023-07-07 07:10 | P.HP ---
Certification for Inpatient Patient admitted to: Inpatient With expected LOS: >2 Midnights Patient will require the following post-hospital care: None Practitioner: I am a practitioner with admitting privileges, knowledge of patient current condition, hospital course, and medical plan of care. Services: Services provided to patient in accordance with Admission requirements found in Title 42 Section 412.3 of the Code of Federal Regulations Patient History Date of Service: 07/07/23 Reason for admission: Chest pain rule out acute coronary syndrome/pleuritic chest pain History of Present Illness: Patient is a 73-year-old gentleman with a history of atrial fibrillation, congestive heart failure with an ejection fraction of 50% on last echo, with a history of coronary artery bypass grafting and tobacco use who comes into the hospital with cough and shortness of breath. Patient states that he been having chest pain since Friday. He said he had a cough and a large amount of sputum. After the cough he has been having persistent pleuritic chest pain. He has had a history of cardiac disease and currently he is in atrial fibrillation with rapid ventricular response. His heart rates in the 130s. Patient will be admitted to the hospital with strict blood pressure control as his blood pressure is 150/110. Patient will be admitted to the hospital for observation. Allergies methocarbamol [From Robaxin] Allergy (Verified 07/24/16 23:32) Unknown simvastatin Adverse Reaction (Verified 07/24/16 23:32) Nausea/Vomiting statins Allergy (Uncoded 10/06/16 06:00) Unknown Home Medications: Isosorbide Dinitrate 10 mg PO TID 03/19/16 Metoprolol Tartrate 50 mg PO BID 03/19/16 Nifedipine [Nifedipine ER] 60 mg PO BID 03/19/16 Nitroglycerin 0.4 mg SL PRN PRN 03/19/16 Hydralazine [Apresoline*] 25 mg PO BID #60 tab 03/22/16 Furosemide 40 mg PO BID 05/29/21 Montelukast [Singulair*] 10 mg PO DAILY 05/29/21 Terazosin HCl 2 mg PO BID 05/29/21 Aspirin [Aspirin EC 81 MG] 81 mg PO DAILY #30 tablet. 05/30/21 Benzonatate [Tessalon Perle*] 100 mg PO TID PRN #30 cap 05/30/21 Folic Acid 1 mg PO DAILY #30 tablet 05/30/21 Rivaroxaban [Xarelto] 20 mg PO DAILY #30 tablet 05/30/21 - Past Medical/Surgical History Diabetic: Yes -: MT -: DM-2 -: HTN -: Atrial fibrillation -: CHF -: Sleep Apnea -: CAD -: TIA -: HLD -: basal cell carcinoma -: Cardiac catheterization with stent placement x 5 -: Back surgery -: Tonsillectomy -: Adenoids -: Nose surgery -: 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 - Family History Father Medical History: Heart disease Mother Medical History: Heart disease, Hypertension, Diabetes Sister Medical History: Hypertension, Diabetes - Social History Smoking Status: Former smoker Alcohol use: No CD- Drugs: No Caffeine use: Yes Review of Systems 10-point ROS is otherwise unremarkable Physical Examination - Vital Signs Temperature: 98 F (reviewed) - Physical Exam General: Alert, In no apparent distress, Oriented x3 HEENT: Atraumatic, PERRLA, Mucous membr. moist/pink, EOMI, Sclerae nonicteric Neck: Supple, 2+ carotid pulse no bruit, No LAD, Without JVD or thyroid abnormality Respiratory: Diminished, Rhonchi/gurgles Cardiovascular: Irregular heart rate/rhythm, Systolic murmur Gastrointestinal: Normal bowel sounds, Soft and benign, Non-distended, No tenderness Musculoskeletal: No clubbing, No swelling, No tenderness Integumentary: No rashes Neurological: Normal gait, Normal speech, Normal strength at 5/5 x4 extr, Normal tone, Sensation intact, Cranial nerves 3-12 intact, Normal affect Lymphatics: No axilla or inguinal lymphadenopathy - Studies Laboratory Data (last 24 hrs) 07/07/23 07/07/23 07/07/23 05:06 05:06 05:06 WBC 13.10 H Hgb 15.7 Hct 45.1 Plt Count 176 PT 36.6 H INR 3.45 Sodium 138 Potassium 4.2 BUN 34 H Creatinine 2.36 H Glucose 136 H Magnesium 2.1 Total Bilirubin 0.9 AST 8 L ALT 17 Alkaline Phosphatase 108 Assessment & Plan - Problems (Diagnosis) (1) Pleuritic chest pain Current Visit: Yes Status: Acute (2) Atrial fibrillation with RVR Onset Date: 05/22/15 Current Visit: No Status: Acute (3) Chest pain Onset Date: 07/07/15 Current Visit: No Status: Acute (4) Diabetes type 2, controlled Current Visit: No Status: Acute (5) CAD (coronary artery disease) Current Visit: No Status: Chronic Qualifiers: (6) Diabetes mellitus Onset Date: 05/22/15 Current Visit: No Status: Chronic Qualifiers: (7) HLD (hyperlipidemia) Current Visit: No Status: Chronic Qualifiers: (8) Hypertension Current Visit: No Status: Chronic Qualifiers: (9) COPD with acute exacerbation Current Visit: Yes Status: Acute - Plan -High-sensitivity troponin -Cardiology consultation -Echocardiogram -Continue with nebs, steroids, and antibiotics -Most likely pleuritic chest pain and will reassess patient after steroids and pain control -Strict blood pressure control -Observation status Discharge Plan: Home Plan to discharge in: 24 Hours - Advance Directives Does patient have a Living Will: No Does patient have a Durable POA for Healthcare: No - Code Status/Comfort Care Code Status Assessed: Yes Code Status: Full Code Critical Care: No Time Spent Managing PTS Care (In Minutes): 45
[2023-07-07] MEDS ORDERED: CEFTRIAXONE 1000 MG/VIAL ONE (07:16)
[2023-07-07] MEDS: METOPROLOL TARTRATE 5 MG/5 ML INJ IV SCH (07:30)
[2023-07-07] MEDS ORDERED: METOPROLOL TAR 50 MG TAB ONE (07:33)
[2023-07-07] MEDS ORDERED: RIVAROXABAN 20 MG TABLET PO ONE (07:34)
[2023-07-07] MEDS ORDERED: METOPROLOL TARTRATE 5 MG/5 ML INJ IV ONE ×4 (07:34→07:50)
[2023-07-07] MEDS ORDERED: ASPIRIN EC 81 MG TAB PO ONE (07:34)
[2023-07-07] MEDS ORDERED: MORPHINE 4 MG/ML SYR ONE ×2 (08:02→16:15)
[2023-07-07] MEDS: ASPIRIN EC 81 MG TAB PO SCH (08:23)
[2023-07-07] MEDS: CEFTRIAXONE 1,000 MG in NA CHLORIDE 0.9% 50 ML IVPB SCH (08:24)
[2023-07-07] MEDS: AMLODIPINE 10 MG TAB PO SCH (08:24)
[2023-07-07] MEDS: METOPROLOL TAR 50 MG TAB PO SCH (08:24)
[2023-07-07] MEDS: RIVAROXABAN 20 MG TABLET PO SCH (08:25)
[2023-07-07] MEDS: MORPHINE 4 MG/ML SYR IV PRN (08:25)
[2023-07-07] MEDS: FUROSEMIDE 40 MG TABLET PO SCH (09:00)
[2023-07-07] MEDS: AMIODARONE HCL 900 MG in Dextrose 5%-Water 482 ML IV SCH (09:20)
[2023-07-07] MEDS: AMIODARONE HCL 75 MG in D5W 100 ML IV STA (09:20)
[2023-07-07] MEDS ORDERED: NITROGLYCERIN 1 GM PKT TD ONE (09:33)
[2023-07-07] MEDS: NITROGLYCERIN 1 GM PKT TD ONE (09:36)
[2023-07-07] MEDS: ISOSORBIDE DINIT 5 MG TAB PO SCH (09:44)
--- NOTE | 2023-07-07 11:26 | RAD REPORT ---
EXAM DESCRIPTION: Chest Single View CLINICAL HISTORY: CHEST PAIN COMPARISON: None TECHNIQUE: Single AP view of the chest. FINDINGS: Lung volumes adequate. Cardiac silhouette is mildly enlarged. Mild bilateral interstitial thickening. No pneumothorax. No large pleural effusion. No focal consolidation. No acute bony finding. IMPRESSION: 1. Mildly enlarged cardiac silhouette. 2. No focal consolidation. Mild bilateral interstitial thickening, could represent mild interstitia l edema. Electronically signed by: Patricia Arredondo MD 07/07/2023 05:13 AM BUSINESS OBJECTS CONSULTANT Due to temporary technical issues with the PACS/Fluency reporting system, reports are being signed by the in house radiologists without review as a courtesy to insure prompt reporting. The interpreting radiologist is fully responsible for the content of the report.
[2023-07-07] MEDS ORDERED: NICOTINE 21 MG/PAT TD ONE (12:16)
[2023-07-07] MEDS ORDERED: METHYLPREDNISOLONE 125 MG INJ ONE ×2 (12:16→16:15)
[2023-07-07] MEDS: METHYLPREDNISOLONE 125 MG INJ IV SCH (12:18)
[2023-07-07] MEDS: NICOTINE 21 MG/PAT TD SCH (12:19)
[2023-07-07] MEDS ORDERED: IPRATROPIUM BROM 0.5MG/2.5ML ONE ×2 (12:48→20:50)
[2023-07-07] MEDS ORDERED: ALBUTEROL 2.5 MG/3 ML NEB SOL ONE ×2 (12:48→20:50)
[2023-07-07] MEDS: IPRATROPIUM BROM 0.5MG/2.5ML NEB SCH (12:57)
[2023-07-07] MEDS: ALBUTEROL 2.5 MG/3 ML NEB SOL NEB SCH (12:57)
[2023-07-07] MEDS ORDERED: METOPROLOL TAR 50 MG TAB PO SCH (14:00)
[2023-07-07] MEDS ORDERED: BENZONATATE 100 MG CAP PO ONE (15:13)
[2023-07-07] MEDS: BENZONATATE 100 MG CAP PO PRN (15:18)
[2023-07-07] MEDS ORDERED: ALPRAZOLAM 0.25 MG TABLET ONE (15:26)
[2023-07-07] MEDS: ALPRAZOLAM 0.25 MG TABLET PO PRN (15:37)
[2023-07-07] MEDS: INFLUENZA VACCINE (for 6+ mo) 0.5 ML DOSE IMVAC ONE (16:00)
[2023-07-07] MEDS: PNEUMOCOCCAL VACCINE 0.5 ML IMVAC ONE (16:00)
[2023-07-07] MEDS ORDERED: FUROSEMIDE 40 MG TABLET ONE (16:15)
--- NOTE | 2023-07-07 19:12 | CON ---
Date of Consultation: 07/07/2023 Reason For Consultation: Atrial fibrillation with rapid ventricular response and chest pain. History Of Present Illness: A 73-year-old male, history of atrial fibrillation, chronic congestive h eart failure, coronary artery disease, status post bypass study, active smoker. He was at the outsid e of the porch smoking a cigarette where he had significant cough and became short of breath and that is when he had pain in his chest that increases with inspiration. Upon arrival to the emergency suad , found to be in atrial fibrillation with rapid ventricular response. Amiodarone drip was started. The patient has already taken metoprolol at home. His chest pain is mild at the present time, feels as a constant soreness as per his report. Past Medical History: Hypertension, atrial fibrillation, congestive heart failure, coronary artery d isease, dyslipidemia, and diabetes. Medications: Refer reconciliation sheet for detailed list. Allergies: SIMVASTATIN AND METHOCARBAMOL. Family History: No premature coronary artery disease or cancer. Social History: He is an active smoker. Does not drink or use any drugs. Review of Systems: All systems reviewed and they were negative except as mentioned in the HPI. Physical Examination: Vital Signs: Reviewed. Head and Neck: Pupils are equal, reactive to light. Intact eye movements. No JVD. No cervical lym phadenopathy. Neck is supple. Thyroid is not enlarged. Lungs: Clear to auscultation bilaterally. No rhonchi, rales, or crackles. No accessory muscle use. Heart: Irregularly irregular. No extra sounds. Abdomen: Soft, nontender. Bowel sounds positive. No organomegaly. No masses or hernia. No rigidi ty or rebound. Extremities: No edema, clubbing, or cyanosis. Intact pulses. Skin: No rash or nodule. Neurologic: Alert, awake, oriented x3. No acute focal deficits associated. Lymph Nodes: No cervical or axillary lymphadenopathy. Investigations: Troponin x2 are negative. BUN 34, creatinine 2.36, and hemoglobin is 15.7, INR is 3 .45. Assessment And Recommendation: 1.Atrial fibrillation with rapid ventricular response. Recommend IV amiodarone load for 24 hours an d then switch to oral 200 mg twice a day afterwards. Continue metoprolol 50 mg twice a day and fara nue Xarelto daily. 2.Coronary artery disease, now with chest pain. Two sets of cardiac enzymes are negative. Repeat t he third one. If it is negative, I recommend a stress test which can be done as an outpatient. 3.Dyslipidemia, is allergic to simvastatin. This patient can be a candidate for pathology, which ca n be arranged for as an outpatient with his own ultrasound technologist sonographer. 4.Hypertension. Blood pressure is controlled. Continue current management. /YESY Voice ID: [id number] Report ID: [id number]
[2023-07-07] MEDS: NIFEDIPINE XL 60 MG TABLET PO SCH (20:46)
[2023-07-08] MEDS ORDERED: IPRATROPIUM BROM 0.5MG/2.5ML ONE ×4 (00:37→19:38)
[2023-07-08] MEDS ORDERED: ALBUTEROL 2.5 MG/3 ML NEB SOL ONE ×4 (00:37→19:38)
[2023-07-08] MEDS ORDERED: METHYLPREDNISOLONE 125 MG INJ ONE ×2 (01:13→05:42)
[2023-07-08 05:14] LABS: Absolute Basophils 0.1 K/uL (0-0.5); Absolute Lymphocytes (CBC) 0.7 K/uL (0.7-4.9); Absolute Monocytes 1.3 K/uL (0.1-1.3); Absolute Neutrophil 21.1 K/uL (1.8-8.0); Basophils % 0.3 % (0-1.3); Hematocrit 42.8 % (39.6-49.0); Hemoglobin 14.6 g/dL (13.6-17.9); Lymphocytes % 2.8 % (15.3-44.8); MCH 33.6 pg (27.0-35.0); MCHC 34.1 g/dL (32.0-36.0); MCV 98.5 fL (80-100); MPV 8.9 fL (7.6-11.3); Monocytes % 5.4 % (3.3-12.3); Neutrophils % 91.5 % (41.7-73.7); Platelets 169 thou/uL (152-406); RBC Red Blood Cell Count 4.34 M/uL (4.33-5.43); Red Cell Distribution Width 13.8 % (12.1-15.2)
[2023-07-08 05:20] LABS: Anion Gap 13.3 mEq/L (5.0-15.0); Potassium 4.3 mEq/L (3.5-5.1)
[2023-07-08 07:53] LABS: Band Neutrophils 3 % (0-1); Blood Morphology Comment NOT SEEN (NOT SEEN); Differential Total Cells Count 100; Lymphocytes 3 % (15-42); Monocytes 6 % (0-10); Platelet Estimate ADEQ; Segmented Neutrophils 88 % (40-80)
[2023-07-08] MEDS ORDERED: ASPIRIN EC 81 MG TAB PO ONE (08:02)
[2023-07-08] MEDS ORDERED: NICOTINE 21 MG/PAT TD ONE (08:02)
[2023-07-08] MEDS ORDERED: RIVAROXABAN 20 MG TABLET PO ONE (08:02)
[2023-07-08] MEDS: ISOSORBIDE MONO 10 MG TAB PO SCH (08:20)
[2023-07-08] MEDS ORDERED: GLUCAGON 1 MG/VIAL IM PRN ×2 (10:40→11:25)
[2023-07-08] MEDS ORDERED: D50W 25 GM/50 ML SYRINGE IV PRN ×2 (10:40→11:25)
[2023-07-08] MEDS ORDERED: HOME MED 1 EA UNK (Albuterol Sulfate [Proair Respiclick] 90 MCG Aer.Pow.Ba) IH PRN (10:44)
[2023-07-08] MEDS ORDERED: D10W 125 ML IV PRN (11:42)
[2023-07-08] MEDS ORDERED: AMIODARONE HCL 200 MG TAB ONE (11:47)
[2023-07-08] MEDS ORDERED: INSULIN REGULAR (HUMAN) 100 UNIT/ML ONE (11:48)
[2023-07-08] MEDS: INSULIN REGULAR (HUMAN) 100 UNIT/ML SQ SCH (11:50)
[2023-07-08] MEDS: AMIODARONE HCL 200 MG TAB PO SCH (11:50)
[2023-07-08 12:01] LABS: Absolute Basophils 0.1 K/uL (0-0.5); Absolute Lymphocytes (CBC) 0.6 K/uL (0.7-4.9); Absolute Monocytes 0.5 K/uL (0.1-1.3); Absolute Neutrophil 19.8 K/uL (1.8-8.0); Basophils % 0.6 % (0-1.3); Hematocrit 43.7 % (39.6-49.0); Lymphocytes % 2.8 % (15.3-44.8); MCH 33.9 pg (27.0-35.0); MCHC 34.3 g/dL (32.0-36.0); MCV 98.9 fL (80-100); MPV 8.8 fL (7.6-11.3); Monocytes % 2.3 % (3.3-12.3); Neutrophils % 94.3 % (41.7-73.7); Platelets 168 thou/uL (152-406); RBC Red Blood Cell Count 4.42 M/uL (4.33-5.43); Red Cell Distribution Width 13.8 % (12.1-15.2)
[2023-07-08 12:08] LABS: PT Prothrombin Time 56.3 SECONDS (9.5-12.5); Protime INR 5.38
--- NOTE | 2023-07-08 12:22 | RAD REPORT ---
EXAM DESCRIPTION: RAD - Chest Single View - 07/08/2023 12:05 pm CLINICAL HISTORY: pneumonia COMPARISON: Chest Single View dated 07/07/2023; Chest Single View dated 09/05/2022; Chest Single View da cecelia 12/12/2021; Chest Single View dated 05/29/2021 FINDINGS: Lines: None. Lungs: No evidence of edema or pneumonia. Pleural: No significant pleural effusions or pneumothorax. Cardiac: The heart size is within normal limits. Mediastinum: Within normal limits. Bones: No acute fractures. Other: None IMPRESSION: No acute cardiopulmonary disease.
[2023-07-08 12:24] LABS: Anion Gap 11.7 mEq/L (5.0-15.0); Magnesium 2.3 mg/dL (1.6-2.4); Potassium 4.7 mEq/L (3.5-5.1); Troponin High Sensitivity 14.3 pg/mL (<58.9)
[2023-07-08] MEDS: INFLUENZA VACCINE (for 6+ mo) 0.5 ML DOSE IMVAC ONE (17:00)
[2023-07-08] MEDS: PNEUMOCOCCAL VACCINE 0.5 ML IMVAC ONE (17:00)
--- NOTE | 2023-07-08 17:09 | EKG ---
Test Date: 2023-07-07 Test Time: 04:41:40 Bpm Analyst: SHARIF MEASUREMENT RESULTS: Intervals: Rate: 114 CO: QRSD: 108 QT: 348 QTc: 479 [place]: P: CO: QRS: 100 T: -21 INTERPRETIVE STATEMENTS: Atrial fibrillation with rapid ventricular response with premature ventricular or aberrantly conducted complexes Rightward axis Low voltage QRS T wave abnormality, consider inferior ischemia Abnormal ECG Compared to ECG 07/07/2023 04:40:02 Low QRS voltage now present T-wave abnormality still present Possible ischemia still present Electronically Signed On 07-08-23 17:03:53 [employer] WORK[employer] by Jet Rivera
--- NOTE | 2023-07-08 17:09 | EKG ---
Test Date: 2023-07-07 Test Time: 04:40:02 Maintenance Shop Technician: SHARIF MEASUREMENT RESULTS: Intervals: Rate: 110 OK: QRSD: 102 QT: 346 QTc: 468 [place]: P: OK: QRS: 109 T: -30 INTERPRETIVE STATEMENTS: Atrial fibrillation with rapid ventricular response with premature ventricular or aberrantly conducted complexes Rightward axis T wave abnormality, consider inferior ischemia Abnormal ECG Compared to ECG 09/05/2022 15:08:58 Ventricular premature complex(es) now present Right-axis deviation now present Possible ischemia now present Prolonged QT interval no longer present T-wave abnormality still present Electronically Signed On 07-08-23 17:03:56 [employer] by Jet Rivera
[2023-07-08 17:30] LABS: Band Neutrophils 8 % (0-1); Blood Morphology Comment NOT SEEN (NOT SEEN); Differential Total Cells Count 100; Lymphocytes 6 % (15-42); Monocytes 3 % (0-10); Platelet Estimate ADEQ; Segmented Neutrophils 83 % (40-80)
[2023-07-08] MEDS: NA CHLORIDE 0.9% 1,000 ML IV SCH (17:44)
[2023-07-08] MEDS: PHENOL 1.4% ORAL SPRAY 180ML MM PRN (17:44)
--- NOTE | 2023-07-08 17:44 | P.PN ---
Subjective Date of Service: 07/08/23 Patient is clinically feeling much better. Patient cough is improved. Continue with steroids and neb treatments. I may hold off the diuretics and resume some gentle hydration. Patient's INR is also elevated. Review of Systems 10-point ROS is otherwise unremarkable Physical Examination - Vital Signs Temperature: 96.8 F Blood Pressure: 107/75 Pulse: 97 Respirations: 18 Pulse Ox (%): 99 - Physical Exam General: Alert, In no apparent distress, Oriented x3 Respiratory: Diminished, Expiratory wheezes Cardiovascular: Regular rate/rhythm, Normal S1 S2, Systolic murmur Gastrointestinal: Normal bowel sounds, Soft and benign, Non-distended, No tenderness Musculoskeletal: No clubbing, No swelling, No tenderness Integumentary: No rashes Neurological: Sensation intact, Cranial nerves 3-12 intact - Studies Medications List Reviewed: Yes Assessment & Plan - Problems (Diagnosis) (1) Pleuritic chest pain Current Visit: Yes Status: Acute (2) Atrial fibrillation with RVR Onset Date: 05/22/15 Current Visit: No Status: Acute (3) Diabetes type 2, controlled Current Visit: No Status: Acute (4) CAD (coronary artery disease) Current Visit: No Status: Chronic Qualifiers: (5) HLD (hyperlipidemia) Current Visit: No Status: Chronic Qualifiers: (6) Hypertension Current Visit: No Status: Chronic Qualifiers: (7) COPD with acute exacerbation Current Visit: Yes Status: Acute - Plan -High-sensitivity troponin have been negative -Cardiology consultation is appreciated; changed amiodarone to p.o. -Echocardiogram reviewed -Continue with nebs, steroids, and antibiotics -Most likely pleuritic chest pain and will reassess patient after steroids and pain control -Strict blood pressure control -Changed to inpatient Discharge Plan: Home Plan to discharge in: Greater than 2 days - Advance Directives Does patient have a Living Will: No Does patient have a Durable POA for Healthcare: No - Code Status/Comfort Care Code Status: Full Code Critical Care: No Time Spent Managing PTS Care (In Minutes): 35
--- NOTE | 2023-07-08 18:39 | PN ---
Date of Progress Note: 07/08/2023 Subjective: Seen by bedside, doing clinically well. His heart rate is controlled now. Review of Systems: No chest pain, shortness of breath, orthopnea, but he has cough and sputum production. No dysuria, p olyuria, or urinary urgency. All other systems reviewed are negative. Physical Examination: Vital Signs: Reviewed. Head and Neck: Pupils are equal, reactive to light. Intact eye movements. No JVD. No cervical lym phadenopathy. Neck is supple. Thyroid is not enlarged. Lungs: Bilateral positive air entry with decreased breathing sounds and rhonchi bilaterally. No acc essory muscle use or muscle retraction. Heart: Irregularly irregular. No extra sounds. Abdomen: Soft, nontender. Bowel sounds positive. No organomegaly. No masses or hernia. No rigidi ty or rebound. Extremities: Trace edema. No clubbing or cyanosis. Intact pulses. Skin: No rash. Neurologic: Alert, awake, oriented x3. No acute focal deficits appreciated. Investigations: BUN 55, creatinine 3.26. Troponins are negative. Assessment/recommendation: 1.Atrial fibrillation with rapid ventricular response, now rate is controlled. Continue amiodarone 200 mg by mouth twice a day, Lopressor 50 mg twice a day, and discontinue Xarelto as his creatinine i s very high and recommend to monitor INR daily once INR drops below 2 to replace it with the low-dose Eliquis at 2.5 mg twice a day. 2.Leukocytosis, likely has pneumonia, on antibiotics. 3.Elevated INR due to Xarelto and advanced kidney failure. Discontinue Xarelto and plan as above. SR/MODL Voice ID: [id number] Report ID: [id number]
[2023-07-08] MEDS: predniSONE 20 MG TAB PO SCH (22:21)
--- NOTE | 2023-07-09 05:30 | P.PN ---
Subjective Date of Service: 07/09/23 Chief Complaint: Chest pain rule out acute coronary syndrome/pleuritic chest pain 93% on room air, receiving breathing treatments, reports mild shortness of breath with exertion, reports using CPAP at bedtime at home. - Physical Exam General: Alert, In no apparent distress, Oriented x3 Respiratory: Diminished, equal unlabored Cardiovascular: Regular rate/rhythm, Normal S1 S2, Systolic murmur Gastrointestinal: Normal bowel sounds, Soft and benign, Non-distended, No tenderness Musculoskeletal: No clubbing, No swelling, No tenderness <Renay Zambrano - Last Filed: 07/09/23 19:01> Date of Service: 07/09/23 <JacksonMiltonvanda Edilia - Last Filed: 07/11/23 17:30> Review of Systems HPI <Renay Zambrano - Last Filed: 07/09/23 19:01> Physical Examination - Vital Signs Temperature: 97 F Blood Pressure: 107/61 Pulse: 115 Respirations: 22 Pulse Ox (%): 98 - Studies Medications List Reviewed: Yes <Renay Zambrano - Last Filed: 07/09/23 19:01> - Physical Exam General: Alert, In no apparent distress, Oriented x3 Respiratory: Diminished, Expiratory wheezes Cardiovascular: Regular rate/rhythm, Normal S1 S2, Systolic murmur Gastrointestinal: Normal bowel sounds, Soft and benign, Non-distended Musculoskeletal: Swelling Neurological: Sensation intact, Cranial nerves 3-12 intact, Abnormal strength <Milton Jacksonvanda Edilia - Last Filed: 07/11/23 17:30> Assessment And Plan - Plan Assessment plan Pleuritic chest pain, Acute hypoxic respiratory failure secondary to COPD exacerbation Breathing treatments, O2 2 L keep sats greater than 90% Steroid use Troponins negative Cardiology consult Dr. Rivera for A-fib RVR-discontinue Xarelto start Eliquis 2.5 twice daily 3/4 Echocardiogram . MILDLY DEPRESSED LEFT VENTRICULAR EJECTION FRACTION 40-45% 2. MILD GLOBAL HYPOKINESIS 3. LEFT ATRIAL ENLARGEMENT 4. CALCIFIED AORTIC VALVE WITH LIKELY AORTIC STENOSIS (SEVERITY NEEDS FURTHER EVALUATION) 5. MILD MITRAL REGURGITATION 3/4 Chest x-ray IMPRESSION: 1. Mildly enlarged cardiac silhouette. 2. No focal consolidation. Mild bilateral interstitial thickening, could represent mild interstitial edema Leukocytosis likely secondary to steroid use Trend WBCs Acute on chronic kidney injury BUN 83, creatinine 3.34 Trend kidney function A-fib RVR Hyperlipidemia Hypertension Resume appropriate home meds Diabetes unknown control Sliding scale insulin, Accu-Cheks Full code DVT Diet cardiac Disposition, patient lives at home, wears CPAP at night, ambulates short distance independently Discharge Plan: Home - Code Status/Comfort Care Code Status: Full Code Critical Care: No Time Spent Managing PTS Care (In Minutes): 35 <Renay Zambrano - Last Filed: 07/09/23 19:01> - Current Problems (Diagnosis) (1) Pleuritic chest pain Current Visit: Yes Status: Acute (2) Atrial fibrillation with RVR Onset Date: 05/22/15 Current Visit: No Status: Acute (3) Diabetes type 2, controlled Current Visit: No Status: Acute (4) CAD (coronary artery disease) Current Visit: No Status: Chronic Qualifiers: (5) HLD (hyperlipidemia) Current Visit: No Status: Chronic Qualifiers: (6) Hypertension Current Visit: No Status: Chronic Qualifiers: (7) COPD with acute exacerbation Current Visit: Yes Status: Acute <Alfred Jackson - Last Filed: 07/11/23 17:30> Date of Service: 07/09/23 Patient seen and examined. Patient's respiratory status has improved but he still coughing quite a bit. Still with upper respiratory congestion. Renal function has slightly worsened so we will keep an eye on this as well. Chest pain has improved and will continue with pain control consult nephrology as well. <Alfred Jackson - Last Filed: 07/11/23 17:30>
[2023-07-09 07:01] LABS: PT Prothrombin Time 28.6 SECONDS (9.5-12.5); Protime INR 2.68
--- NOTE | 2023-07-09 07:03 | ECHO ---
HEIGHT: 5 ft 10 in WEIGHT: 248 lb 0 oz DATE OF STUDY: 07/08/[address]: Alfred Jackson MD 2-DIMENSIONAL: YES M.MODE: YES DOPPLER: YES COLOR FLOW: YES TDS: PORTABLE: YES DEFINITY: BUBBLE STUDY: DIAGNOSIS: ATRIAL FIBRILLATION WITH RAPID VENTRICULAR RESPONSE CARDIAC HISTORY: CATHERIZATION: SURGERY: PROSTHETIC VALVE: PACEMAKER: MEASUREMENTS (cm) DIASTOLIC (NORMALS) SYSTOLIC (NORMALS) IVSd 1.1 (0.6-1.2) LA Diam 4.1 (1.9-4.0) LVEF 38% LVIDd 4.3 (3.5-5.7) LVIDs 3.5 (2.0-3.5) %FS 18% LVPWd 1.3 (0.6-1.2) Ao Diam 3.5 (2.0-3.7) 2 DIMENSIONAL ASSESSMENT: RIGHT ATRIUM: NORMAL LEFT ATRIUM: ENLARGED RIGHT VENTRICLE: NORMAL LEFT VENTRICLE: DEPRESSED EJECTION FRACTION TRICUSPID VALVE: TRACE TRICUSPID REGURGITATION MITRAL VALVE: MILD MITRAL REGURGITATION PULMONIC VALVE: MILD PULMONIC INSUFFICIENCY AORTIC VALVE: CALCIFIED AORTIC VALVE PERICARDIAL EFFUSION: NONE AORTIC ROOT: NORMAL LEFT VENTRICULAR WALL MOTION: MILD GLOBAL HYPOKINESIS DOPPLER/COLOR FLOW: SEE BELOW COMMENTS: 1. MILDLY DEPRESSED LEFT VENTRICULAR EJECTION FRACTION 40-45% 2. MILD GLOBAL HYPOKINESIS 3. LEFT ATRIAL ENLARGEMENT 4. CALCIFIED AORTIC VALVE WITH LIKELY AORTIC STENOSIS (SEVERITY NEEDS FURTHER EVALUATION) 5. MILD MITRAL REGURGITATION TECHNOLOGIST: NEFTALI BALDWIN
[2023-07-09 07:09] LABS: Absolute Lymphocytes (CBC) 0.6 K/uL (0.7-4.9); Absolute Monocytes 0.6 K/uL (0.1-1.3); Absolute Neutrophil 18.9 K/uL (1.8-8.0); Basophils % 0.1 % (0-1.3); Hematocrit 39.9 % (39.6-49.0); Hemoglobin 13.7 g/dL (13.6-17.9); Lymphocytes % 3.1 % (15.3-44.8); MCH 33.6 pg (27.0-35.0); MCHC 34.3 g/dL (32.0-36.0); MCV 97.8 fL (80-100); MPV 9.1 fL (7.6-11.3); Monocytes % 3.1 % (3.3-12.3); Neutrophils % 93.7 % (41.7-73.7); Platelets 182 thou/uL (152-406); RBC Red Blood Cell Count 4.08 M/uL (4.33-5.43); Red Cell Distribution Width 13.9 % (12.1-15.2)
[2023-07-09 07:14] LABS: Albumin 2.9 g/dL (3.4-5.0); Albumin/Globulin Ratio 0.7 (1.1-1.8); Anion Gap 12.2 mEq/L (5.0-15.0); Bilirubin Total 0.3 mg/dL (0.2-1.0); Globulin 4.4 g/dL (2.3-3.5); Potassium 4.2 mEq/L (3.5-5.1); Protein, Total 7.3 g/dL (6.4-8.2)
[2023-07-09] MEDS ORDERED: ISOSORBIDE MONONITRATE 20 MG PO SCH (09:00)
[2023-07-09] MEDS ORDERED: METOPROLOL XL 50 MG TAB PO SCH (09:00)
[2023-07-09] MEDS: FLUTICASONE 50MCG NASAL SPRAY NAS SCH (09:00)
[2023-07-09] MEDS: PIPER TAZO 3.375 GM in NA CHLORIDE 0.9% 100 ML IV SCH (10:19)
[2023-07-09] MEDS: TAMSULOSIN 0.4 MG SR CAP PO SCH (10:25)
[2023-07-09] MEDS: APIXABAN 2.5 MG TABLET PO SCH (10:25)
[2023-07-09] MEDS: FUROSEMIDE 40 MG TABLET PO SCH (10:25)
[2023-07-09] MEDS: LOSARTAN POTASSIUM 50 MG TABLET PO SCH (10:26)
[2023-07-09] MEDS: MONTELUKAST 10 MG TAB PO SCH (10:26)
[2023-07-09] MEDS: CETIRIZINE HCL 5 MG TABLET PO SCH (10:29)
[2023-07-09] MEDS: GLIMEPIRIDE 2 MG TABLET PO SCH (10:29)
[2023-07-10 06:55] LABS: Absolute Lymphocytes (CBC) 0.6 K/uL (0.7-4.9); Absolute Monocytes 0.4 K/uL (0.1-1.3); Absolute Neutrophil 15.4 K/uL (1.8-8.0); Basophils % 0.1 % (0-1.3); Hematocrit 38.7 % (39.6-49.0); Hemoglobin 13.1 g/dL (13.6-17.9); Lymphocytes % 3.7 % (15.3-44.8); MCH 33.4 pg (27.0-35.0); MCHC 33.9 g/dL (32.0-36.0); MCV 98.5 fL (80-100); MPV 8.6 fL (7.6-11.3); Monocytes % 2.4 % (3.3-12.3); Neutrophils % 93.8 % (41.7-73.7); Platelets 198 thou/uL (152-406); RBC Red Blood Cell Count 3.93 M/uL (4.33-5.43)
[2023-07-10 07:00] LABS: PT Prothrombin Time 22.2 SECONDS (9.5-12.5); Protime INR 2.06
[2023-07-10 07:11] LABS: Anion Gap 16.1 mEq/L (5.0-15.0); Potassium 4.1 mEq/L (3.5-5.1)
--- NOTE | 2023-07-10 10:24 | P.PN ---
Subjective Date of Service: 07/10/23 Chief Complaint: Chest pain rule out acute coronary syndrome/pleuritic chest pain 93% on room air, receiving breathing treatments, reports productive cough, mild shortness of breath with exertion, reports using CPAP at bedtime at home. Evaluated by pulmonary today - Physical Exam General: Alert, In no apparent distress, Oriented x3 Respiratory: Diminished, equal unlabored Cardiovascular: Regular rate/rhythm, Normal S1 S2, Systolic murmur Gastrointestinal: Normal bowel sounds, Soft and benign, Non-distended, No tenderness Musculoskeletal: No clubbing, No swelling, No tenderness <Renay Zambrano - Last Filed: 07/10/23 18:26> Date of Service: 07/10/23 <Alfred Jackson - Last Filed: 07/11/23 17:34> Review of Systems Per HPI <Renay Zambrano - Last Filed: 07/10/23 18:26> Physical Examination - Vital Signs Temperature: 97.6 F Blood Pressure: 103/58 Pulse: 93 Respirations: 18 Pulse Ox (%): 98 - Studies Medications List Reviewed: Yes <KenayRenay - Last Filed: 07/10/23 18:26> Assessment And Plan - Plan Assessment plan Pleuritic chest pain, Acute hypoxic respiratory failure secondary to COPD exacerbation Breathing treatments, O2 2 L keep sats greater than 90% Steroid use Troponins negative Pulmonary following Generalized weakness OT eval to assist with Leukocytosis likely secondary from steroids trend WBCs trending down Acute on chronic kidney injury BUN 83, creatinine 3.34 Trend kidney function Nephrology following A-fib RVR Hyperlipidemia Hypertension Resume appropriate home meds Cardiology following Cardiology consult Dr. Rivera for A-fib RVR-discontinue Xarelto start Eliquis 2.5 twice daily 3/4 Echocardiogram . MILDLY DEPRESSED LEFT VENTRICULAR EJECTION FRACTION 40-45% 2. MILD GLOBAL HYPOKINESIS 3. LEFT ATRIAL ENLARGEMENT 4. CALCIFIED AORTIC VALVE WITH LIKELY AORTIC STENOSIS (SEVERITY NEEDS FURTHER EVALUATION) 5. MILD MITRAL REGURGITATION 3/4 Chest x-ray IMPRESSION: 1. Mildly enlarged cardiac silhouette. 2. No focal consolidation. Mild bilateral interstitial thickening, could represent mild interstitial edema Diabetes unknown control Sliding scale insulin, Accu-Cheks Full code DVT Diet cardiac Disposition, patient lives at home, wears CPAP at night, ambulates short distance independently Discharge Plan: Home - Code Status/Comfort Care Code Status: Full Code Critical Care: No Time Spent Managing PTS Care (In Minutes): 35 <Renay Zambrano - Last Filed: 07/10/23 18:26> - Current Problems (Diagnosis) (1) Pleuritic chest pain Current Visit: Yes Status: Acute (2) Atrial fibrillation with RVR Onset Date: 05/22/15 Current Visit: No Status: Acute (3) Diabetes type 2, controlled Current Visit: No Status: Acute (4) CAD (coronary artery disease) Current Visit: No Status: Chronic Qualifiers: (5) HLD (hyperlipidemia) Current Visit: No Status: Chronic Qualifiers: (6) Hypertension Current Visit: No Status: Chronic Qualifiers: (7) COPD with acute exacerbation Current Visit: Yes Status: Acute <Alfred Jackson - Last Filed: 07/11/23 17:34> Date of Service: 07/10/23 Patient seen and examined. Cough has improved and patient's respiratory status is stable. Still with upper respiratory congestion. Renal function continues to be slightly worse so we will keep an eye on this as well. Patient needs to start working with physical therapy. Cardiac status is stable. Long-term prognosis remains patient has declined over the last couple years and will need to continue to monitor his labs closely and he will need extensive physical therapy to improve his strength. <Alfred Jackson - Last Filed: 07/11/23 17:34>
[2023-07-10] MEDS: ARFORMOTEROL TARTRATE 15 MCG/2 ML VIAL.NEB NEB SCH (11:56)
--- NOTE | 2023-07-10 11:56 | RAD REPORT ---
EXAM DESCRIPTION: Kiara Single View07/10/2023 11:47 am CLINICAL HISTORY: Cough COMPARISON: July 08, 2023 FINDINGS: The lungs appear clear of acute infiltrate. The heart is mildly to moderately enlarged IMPRESSION: No acute abnormalities displayed
--- NOTE | 2023-07-10 11:57 | P.CNS ---
Date of Consult: 07/10/23 Reason for Consult: COPD chest pain Chief Complaint: Chest pain rule out acute coronary syndrome/pleuritic chest pain History of Present Illness: Patient is 73 years of age with a very heavy smoker admitted with acute onset of retrosternal chest pain with a history of coronary artery disease has had stents placed. In the hospital complains of some shortness of breath does not have any oxygen at home does use some inhalers at home feels a little congested no pain right now Allergies methocarbamol [From Robaxin] Allergy (Verified 07/24/16 23:32) Unknown simvastatin Adverse Reaction (Verified 07/24/16 23:32) Nausea/Vomiting statins Allergy (Uncoded 10/06/16 06:00) Unknown Home Medications: Nifedipine [Nifedipine ER] 60 mg PO DAILY 03/19/16 Montelukast [Singulair*] 10 mg PO DAILY 05/29/21 Rivaroxaban [Xarelto] 20 mg PO DAILY #30 tablet 05/30/21 Albuterol Sulfate [Proair Respiclick] 1 puff IH Q6H PRN 07/07/23 Cetirizine HCl 10 mg PO DAILY 07/07/23 Fluticasone [Flonase 50MCG Nasal [place]*] 2 sprays [place] DAILY 07/07/23 Furosemide [Lasix] 40 mg PO DAILY 07/07/23 Glimepiride 1 mg PO DAILY 07/07/23 Isosorbide Mononitrate 20 mg PO DAILY 07/07/23 Losartan Potassium [Cozaar*] 50 mg PO DAILY 07/07/23 Metoprolol Succinate [Toprol Xl] 50 mg PO DAILY 07/07/23 Tamsulosin HCl 0.4 mg PO DAILY 07/07/23 - Past Medical/Surgical History Diabetic: Yes -: NE -: DM-2 -: HTN -: Atrial fibrillation -: CHF -: Sleep Apnea -: CAD -: TIA -: HLD -: basal cell carcinoma -: Cardiac catheterization with stent placement x 5 -: Back surgery -: Tonsillectomy -: Adenoids -: Nose surgery -: 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 - Family History Father Medical History: Heart disease Mother Medical History: Heart disease, Hypertension, Diabetes Sister Medical History: Hypertension, Diabetes - Social History Smoking Status: Current every day smoker Alcohol use: No CD- Drugs: No Caffeine use: Yes Place of Residence: Home Review of Systems 10-point ROS is otherwise unremarkable General: Weakness Respiratory: Shortness of Breath Physical Examination Temp Pulse Resp BP Pulse Ox 97.6 F 93 H 18 103/58 L 98 07/10/23 10:24 07/10/23 10:24 07/10/23 10:24 07/10/23 10:24 07/10/23 10:24 General: Alert, In no apparent distress, Oriented x3 HEENT: Atraumatic Neck: Supple Respiratory: Expiratory wheezes Cardiovascular: No edema, Normal pulses, Regular rate/rhythm, Normal S1 S2 Gastrointestinal: Normal bowel sounds, Hypoactive, Soft and benign - Problems (1) Chest pain Onset Date: 07/07/15 Current Visit: No Status: Acute Plan: Patient is 73 years of age with a history of coronary artery disease heavy smoker admitted with chest pain he is most likely underlying unstable angina troponins are negative echocardiogram is suggestive of congestive heart failure MILDLY DEPRESSED LEFT VENTRICULAR EJECTION FRACTION 40-45% 2. MILD GLOBAL HYPOKINESIS 3. LEFT ATRIAL ENLARGEMENT 4. CALCIFIED AORTIC VALVE WITH LIKELY AORTIC STENOSIS (SEVERITY NEEDS FURTHER EVALUATION) 5. MILD MITRAL REGURGITATIO patient admitted with A-fib several underlying ischemia Patient is a diabetic blood sugar is elevated patient will need a noninvasive test Qualifiers: Ischemic chest pain type: unstable angina pectoris (2) COPD with acute exacerbation Current Visit: Yes Status: Acute Plan: Patient is a heavy smoker most likely underlying obstructive airways disease will need bronchodilators he also has sleep apnea uses CPAP at home labs reviewed patient has acute on chronic renal failure white count is elevated patient is on Zosyn
[2023-07-10] MEDS ORDERED: ALBUTEROL 2.5 MG/3 ML NEB SOL NEB PRN (12:00)
[2023-07-10] MEDS: ALBUMIN HUMAN 25% 100 ML IV ONE (14:38)
[2023-07-10 16:16] LABS: Specific Gravity 1.018 (1.005-1.030); Sqamous Epithelial None Seen /HPF (None Seen); Urine Bacteria None Seen /HPF (<20); Urine Bilirubin NEGATIVE (Negative); Urine Blood 1+ (Negative); Urine Clarity Clear (Clear); Urine Color Light-Yellow (Yellow); Urine Culture Reflex Order NOT NEEDED; Urine Glucose NEGATIVE (Negative); Urine Ketones NEGATIVE (Negative); Urine Microscopic Reflex YN ORDER UMIC; Urine Mucus Slight /HPF (None Seen); Urine Nitrite NEGATIVE (Negative); Urine Protein NEGATIVE (Negative); Urine Urobilinogen Normal (Normal); Urine WBC None Seen /HPF (<5)
[2023-07-10 18:16] LABS: Anion Gap 13.9 mEq/L (5.0-15.0); Potassium 3.9 mEq/L (3.5-5.1)
--- NOTE | 2023-07-10 18:24 | CON ---
Date of Consultation: 07/10/2023 Reason For Consultation: Elevated BUN and creatinine, fluid management. History Of Present Illness: This is a pleasant 73-year-old gentleman with significant past medical h istory of diabetes since 2009 complicated with neuropathy and retinopathy, atrial fibrillation, conge stive heart failure, systolic dysfunction with ejection fraction of 38%, valvular heart disease, CAD, status post bypass, COPD, the patient was in his regular state of health. The patient over the week end started having cough with sputum. His symptoms got worse. He was brought to the ER. Upon arriv al to the ER, found to have atrial fibrillation with RVR. For that reason, he was admitted. The pat jose alberto was known to have chronic kidney disease. Follow up with [facility]. Baselin e creatinine according to the family in the 2s. Upon arrival to the hospital, the patient's creatini ne was 2.3. The patient was started on diuresis. The patient continued to be on losartan. Kidney f unction gradually deteriorated, currently creatinine 4. For that reason, we have been consulted the patient denied taking any nonsteroidal, no IV contrast. The patient had no recent change in his medi cation except diuresis. Reviewing the record during the hospitalization, the patient has a few episo de of low blood pressure, systolic down to the 90. Past Medical History: 1.Diabetes, complicated with neuropathy and retinopathy. 2.CAD, complicated with congestive heart failure, status post bypass. 3.Atrial fibrillation, ejection fraction of 38%. 4.Chronic kidney disease, baseline creatinine 2. Follow up with Nephrology in [facility]. Allergies: TO METHOCARBAMOL AND SIMVASTATIN. Home Medications: Include isosorbide, metoprolol, nifedipine, nitroglycerin, hydralazine, Lasix, Sin gulair, folic acid, and Xarelto. Past Surgical History: Include basal cell carcinoma, cardiac cath, back surgery, tonsillectomy, martir oid removal, nasal surgery, aortic aneurysm. Family History: Positive for hypertension, diabetes, CAD. Social History: Ex-smoker. Occasional alcohol. Denied drugs abuse. Review of Systems: Head and Neck: No red eye. No ear pain. GI: No nausea. No vomiting. : No polyuria. No dysuria. No hematuria. [employer] LOOKOUT: Not applicable. Respiratory: Has shortness of breath, has cough. Cardiovascular: Has orthopnea. Endocrine: No polydipsia. Skin: No rash. Physical Examination: Vital Signs: When I saw the patient, blood pressure 101/60, pulse of 88. Chest: Faint rales on the left base. Heart: S1, S2. Systolic murmur. Irregular. Abdomen: Soft, nontender. Extremities: Trace edema. Neurologic: Alert. No focality. Laboratory Data: Upon admission, creatinine 2.3, GFR 28, potassium 4.2. Today lab data, sodium 135, potassium 4.1, bicarb 18, BUN 108, creatinine 4, GFR of 15, calcium 8.2, bicarb 18. Current chest x -ray: Cardiomegaly with congestion, but much better than before. Current Medications: The patient is on include cetirizine, nicotine, Flomax, Eliquis, amiodarone, hy dralazine, isosorbide, metoprolol, losartan, nifedipine, Lasix, and IV fluid to 50 per hour. Assessment And Plan: 1.Acute kidney injury, mostly secondary to over diuresis superimposed with ARB to rule out obstructi ve uropathy, poor perfusion ATN secondary to low blood pressure. I agree with holding Lasix. Discon tinue losartan. Start the patient on gentle hydration. We will send for full workup for the patient . 2.Chronic kidney disease secondary to cardiorenal with acute kidney injury as above. 3.Hypertension, currently blood pressure on the lower side with the presence of acute kidney injury. Discontinue Lasix. Discontinue losartan and I am going to go ahead and monitor the patient. 4.Congestive heart failure with exacerbation, currently patient is on the dry side. Discontinue Las ix. Discontinue losartan. We will follow up. 5.Atrial fibrillation as by primary. 6.Diabetes as by primary. Time spent examining the patient [id number], reviewing data, lab and radiology, discussing the case with the patient and daughter by bedside, discussing the case with the help desk team leader including hospita list and nursing staff more than 75 minutes. PAT Voice ID: [id number] Report ID: [id number]
--- NOTE | 2023-07-10 18:30 | RAD REPORT ---
EXAM DESCRIPTION: US - Renal Ultrasound-Complete - 07/10/2023 3:10 pm CLINICAL HISTORY: NAREN COMPARISON: Abdomen Pelvis Wo Contrast dated 11/13/2016; Chest Single View dated 07/10/2023 TECHNIQUE: Sonographic grayscale and color flow images of the kidneys were obtained. FINDINGS: Both kidneys are normal in size and contour. Mild cortical thickening on the right. The right kidney measures 9.5 cm in length. No hydronephrosis, focal mass, or echogenic calculi. The left kidney measures 10.2 cm in length. Exophytic interpolar 5.1 cm thin-walled anechoic cyst. No hydronephrosis, focal mass, or echogenic calculi. IMPRESSION: Mild right renal cortical thinning, suggestive of sequelae of medical renal disease. Incidentally noted 5.1 cm left renal cortical cyst.
[2023-07-10] MEDS: predniSONE 10 MG TAB PO SCH (21:05)
[2023-07-10] MEDS: DULERA 200/5 (MOMETASONE/FORMOTEROL) INHALER IH SCH (21:10)
[2023-07-11 06:54] LABS: Absolute Lymphocytes (CBC) 0.6 K/uL (0.7-4.9); Absolute Monocytes 0.8 K/uL (0.1-1.3); Absolute Neutrophil 13.4 K/uL (1.8-8.0); Hematocrit 38.6 % (39.6-49.0); Hemoglobin 13.4 g/dL (13.6-17.9); Lymphocytes % 4.1 % (15.3-44.8); MCH 33.9 pg (27.0-35.0); MCHC 34.7 g/dL (32.0-36.0); MCV 97.7 fL (80-100); Monocytes % 5.3 % (3.3-12.3); Neutrophils % 90.6 % (41.7-73.7); Nucleated Red Blood Cells % 0.1 % (0-0); Platelets 192 thou/uL (152-406); RBC Red Blood Cell Count 3.96 M/uL (4.33-5.43); Red Cell Distribution Width 13.8 % (12.1-15.2)
[2023-07-11 07:08] LABS: PT Prothrombin Time 19.9 SECONDS (9.5-12.5); Protime INR 1.84
[2023-07-11 07:20] LABS: Albumin 2.8 g/dL (3.4-5.0); Anion Gap 11.2 mEq/L (5.0-15.0); Phosphorus 4.2 mg/dL (2.5-4.9); Potassium 4.2 mEq/L (3.5-5.1); Thyroid Stimulating Hormone 1.05 uIU/mL (0.358-3.740); Uric Acid 9.3 mg/dL (3.5-7.2)
[2023-07-11 07:49] LABS: Rheumatoid Factor NEG (NEG)
--- NOTE | 2023-07-11 09:30 | P.PN ---
Subjective Date of Service: 07/11/23 Chief Complaint: Chest pain rule out acute coronary syndrome/pleuritic chest pain 93% on room air, receiving breathing treatments, reports productive cough, mild shortness of breath with exertion, reports using CPAP at bedtime at home. Evaluated by pulmonary today Eval for [facility] - Physical Exam General: Alert, In no apparent distress, Oriented x3 Respiratory: Diminished, equal unlabored, productive cough Cardiovascular: Regular rate/rhythm, Normal S1 S2, Systolic murmur Gastrointestinal: Normal bowel sounds, Soft and benign, Non-distended, No tenderness Musculoskeletal: No clubbing, No swelling, No tenderness <Renay Zambrano - Last Filed: 07/11/23 09:40> Date of Service: 07/11/23 <Alfred Jackson - Last Filed: 07/11/23 17:35> Review of Systems Per HPI <Renay Zambrano - Last Filed: 07/11/23 09:40> Physical Examination - Vital Signs Temperature: 97.3 F Blood Pressure: 122/69 Pulse: 86 Respirations: 20 Pulse Ox (%): 94 - Studies Medications List Reviewed: Yes <Renay Zambrano - Last Filed: 07/11/23 09:40> Assessment And Plan - Plan Assessment plan Pleuritic chest pain, Acute hypoxic respiratory failure secondary to COPD exacerbation Breathing treatments, O2 2 L keep sats greater than 90% Steroid use Troponins negative Pulmonary following Generalized weakness OT eval to assist with Plan to discharge [facility] Leukocytosis likely secondary from steroids trend WBCs trending down Acute on chronic kidney injury unknown baseline BUN 83, creatinine 3.34 Trend kidney function Nephrology following Avoid nephrotoxic medication A-fib RVR Hyperlipidemia Hypertension Resume appropriate home meds Cardiology following Cardiology consult Dr. Rivera for A-fib RVR-discontinue Xarelto start Eliquis 2.5 twice daily 3/4 Echocardiogram . MILDLY DEPRESSED LEFT VENTRICULAR EJECTION FRACTION 40-45% 2. MILD GLOBAL HYPOKINESIS 3. LEFT ATRIAL ENLARGEMENT 4. CALCIFIED AORTIC VALVE WITH LIKELY AORTIC STENOSIS (SEVERITY NEEDS FURTHER EVALUATION) 5. MILD MITRAL REGURGITATION 3/4 Chest x-ray IMPRESSION: 1. Mildly enlarged cardiac silhouette. 2. No focal consolidation. Mild bilateral interstitial thickening, could represent mild interstitial edema Diabetes unknown control Sliding scale insulin, Accu-Cheks Full code DVT Diet cardiac Disposition, patient lives at home, wears CPAP at night, ambulates short distance independently - Code Status/Comfort Care Code Status: Full Code Critical Care: No Time Spent Managing PTS Care (In Minutes): 35 <Renay Zambrano - Last Filed: 07/11/23 09:40> - Current Problems (Diagnosis) (1) Pleuritic chest pain Current Visit: Yes Status: Acute (2) Atrial fibrillation with RVR Onset Date: 05/22/15 Current Visit: No Status: Acute (3) Diabetes type 2, controlled Current Visit: No Status: Acute (4) CAD (coronary artery disease) Current Visit: No Status: Chronic Qualifiers: (5) HLD (hyperlipidemia) Current Visit: No Status: Chronic Qualifiers: (6) Hypertension Current Visit: No Status: Chronic Qualifiers: (7) COPD with acute exacerbation Current Visit: Yes Status: Acute <Alfred Jackson - Last Filed: 07/11/23 17:35> Date of Service: 07/11/23 Patient seen and examined. Patient is doing well. Patient denies any new compl aints. Renal function has improved. Continue monitoring closely. Awaiting for rehab placement. <Alfred Jackson - Last Filed: 07/11/23 17:35>
[2023-07-11] MEDS: ALBUMIN HUMAN 25% 100 ML IV ONE (09:32)
[2023-07-11] MEDS: ALBUMIN HUMAN 25% 50 ML IV ONE (09:35)
--- NOTE | 2023-07-11 09:39 | P.DS ---
Admission Date: 07/07/23 Discharge Date: 07/11/23 Disposition: TRANSFER TO INPATIENT REHAB Discharge Condition: GOOD Reason for Admission: Chest pain rule out acute coronary syndrome/pleuritic chest pain Brief History of Present Illness: 73-year-old gentleman with a history of atrial fibrillation, congestive heart failure with an ejection fraction of 50% on last echo, with a history of coronary artery bypass grafting and tobacco use who comes into the hospital with cough and shortness of breath. Patient states that he been having chest pain since Friday. He said he had a cough and a large amount of sputum. After the cough he has been having persistent pleuritic chest pain. He has had a history of cardiac disease and currently he is in atrial fibrillation with rapid ventricular response. His heart rates in the 130s. Patient will be admitted to the hospital with strict blood pressure control as his blood pressure is 150/110. Patient will be admitted to the hospital for observation. - Physical Exam General: Alert, In no apparent distress, Oriented x3 HEENT: Atraumatic, PERRLA, Mucous membr. moist/pink, EOMI, Sclerae nonicteric Neck: Supple, 2+ carotid pulse no bruit, No LAD, Without JVD or thyroid abnormality Respiratory: Diminished, Rhonchi/gurgles Cardiovascular: Irregular heart rate/rhythm, Systolic murmur Gastrointestinal: Normal bowel sounds, Soft and benign, Non-distended, No tenderness Musculoskeletal: No clubbing, No swelling, No tenderness Integumentary: No rashes Neurological: Normal gait, Normal speech, Normal strength at 5/5 x4 extr, Normal tone, Sensation intact, Cranial nerves 3-12 intact, Normal affect Lymphatics: No axilla or inguinal lymphadenopathy Hospital Course: 73-year-old male with a past medical history of A-fib, CHF, CAD with bypass, tobacco use, COPD presents with productive cough pleuritic chest pain. Was admitted for COPD exacerbation, productive cough, treated with nebulizers, steroids, serial troponins are negative, patient is independent prior to admission, plan to discharge to acute inpatient rehab for strengthening. Assessment plan Acute hypoxic respiratory failure secondary to COPD exacerbation COPD exacerbation Acute kidney injury Pleuritic chest pain History of A-fib RVR Acute on chronic heart failure History aortic stenosis Mitral regurgitation Tobacco use Obstructive sleep apnea CPAP at bedtime Acute kidney injury renal ultrasound FINDINGS: Both kidneys are normal in size and contour. Mild cortical thickening on the right. The right kidney measures 9.5 cm in length. No hydronephrosis, focal mass, or echogenic calculi. The left kidney measures 10.2 cm in length. Exophytic interpolar 5.1 cm thin- walled anechoic cyst. No hydronephrosis, focal mass, or echogenic calculi. IMPRESSION: Mild right renal cortical thinning, suggestive of sequelae of medical renal disease. Incidentally noted 5.1 cm left renal cortical cyst. Cardiology consult Dr. Rivera for A-fib RVR-discontinue Xarelto start Eliquis 2.5 twice daily Serial troponins negative 3/4 Echocardiogram . MILDLY DEPRESSED LEFT VENTRICULAR EJECTION FRACTION 40-45% 2. MILD GLOBAL HYPOKINESIS 3. LEFT ATRIAL ENLARGEMENT 4. CALCIFIED AORTIC VALVE WITH LIKELY AORTIC STENOSIS (SEVERITY NEEDS FURTHER EVALUATION) 5. MILD MITRAL REGURGITATION 3/4 Chest x-ray IMPRESSION: 1. Mildly enlarged cardiac silhouette. 2. No focal consolidation. Mild bilateral interstitial thickening, could represent mild interstitial edema Continue home medicines as previously prescribed GOAL: Clear understanding of disease process INSTRUCTIONS: Physician Discharge Instructions: -Follow-up with PCP in 1 to 2 weeks -Please call Dr. Jackson at [phone] if any questions regarding hospital stay -Please call nursing station at [phone] if any nursing or medication questions -Return to the emergency room if symptoms worsen Diet: ADA, low sodium Activity: Fall precautions Vital Signs/Physical Exam: Temp Pulse Resp BP Pulse Ox 97.3 F 86 20 122/69 94 07/11/23 09:30 07/11/23 09:30 07/11/23 09:30 07/11/23 09:30 07/11/23 09:30 Laboratory Data at Discharge: WBC 14.80 thou/uL (4.3-10.9) H 07/11/23 06:11 Hgb 13.4 g/dL (13.6-17.9) L 07/11/23 06:11 Hct 38.6 % (39.6-49.0) L 07/11/23 06:11 Plt Count 192 thou/uL (152-406) 07/11/23 06:11 PT 19.9 SECONDS (9.5-12.5) H 07/11/23 06:11 INR 1.84 07/11/23 06:11 Sodium 139 mEq/L (136-145) 07/11/23 06:11 Potassium 4.2 mEq/L (3.5-5.1) 07/11/23 06:11 BUN 112 mg/dL (7-18) H 07/11/23 06:11 Creatinine 3.90 mg/dL (0.70-1.30) H 07/11/23 06:11 Glucose 156 mg/dL (74-106) H 07/11/23 06:11 Uric Acid 9.3 mg/dL (3.5-7.2) H 07/11/23 06:11 Phosphorus 4.2 mg/dL (2.5-4.9) 07/11/23 06:11 Magnesium 2.3 mg/dL (1.6-2.4) 07/08/23 11:47 Total Bilirubin 0.3 mg/dL (0.2-1.0) 07/09/23 05:45 AST 5 U/L (15-37) L 07/09/23 05:45 ALT 14 U/L (16-61) L 07/09/23 05:45 Alkaline Phosphatase 78 U/L (45-117) 07/09/23 05:45 Home Medications: Nifedipine [Nifedipine ER] 60 mg PO DAILY 03/19/16 Montelukast [Singulair*] 10 mg PO DAILY 05/29/21 Rivaroxaban [Xarelto] 20 mg PO DAILY #30 tablet 05/30/21 Albuterol Sulfate [Proair Respiclick] 1 puff IH Q6H PRN 07/07/23 Cetirizine HCl 10 mg PO DAILY 07/07/23 Fluticasone [Flonase 50MCG Nasal [place]*] 2 sprays FATOUMATA DAILY 07/07/23 Furosemide [Lasix] 40 mg PO DAILY 07/07/23 Glimepiride 1 mg PO DAILY 07/07/23 Isosorbide Mononitrate 20 mg PO DAILY 07/07/23 Losartan Potassium [Cozaar*] 50 mg PO DAILY 07/07/23 Metoprolol Succinate [Toprol Xl] 50 mg PO DAILY 07/07/23 Tamsulosin HCl 0.4 mg PO DAILY 07/07/23 Followup: Belkys Granger DO [Primary Care Provider] - Time spent managing pt's care (in minutes): 55
[2023-07-11 11:11] LABS: UR PROTEIN 29.2 mg/dL (<11.9); Urine Protein/Creatinine Ratio 0.6 ratio (<0.15)
--- NOTE | 2023-07-11 14:25 | P.PN ---
Subjective Date of Service: 07/11/23 Chief Complaint: Chest pain rule out acute coronary syndrome/pleuritic chest pain Physical Examination - Vital Signs Temperature: 97.3 F Blood Pressure: 122/69 Pulse: 86 Respirations: 20 Pulse Ox (%): 94 - Studies Medications List Reviewed: Yes Assessment And Plan - Plan 1. Acute kidney injury, mostly secondary to over diuresis superimposed with ARB. SCr improved to 3.9. Cont IV/PO hydration. 2. Chronic kidney disease secondary to cardiorenal with acute kidney injury as above. Monitor renal panel. 3. Hypertension. Cont current med regimen. 4. Congestive heart failure with exacerbation, currently patient is on the dry side. Discontinue Lasix. Discontinue losartan. We will follow up. 5. Atrial fibrillation. Per other services. 6. DM2. Per primary team.
[2023-07-12 03:58] LABS: PT Prothrombin Time 21.2 SECONDS (9.5-12.5); Protime INR 1.97
[2023-07-12 03:59] LABS: Albumin 2.9 g/dL (3.4-5.0); Anion Gap 8.5 mEq/L (5.0-15.0); Phosphorus 3.7 mg/dL (2.5-4.9); Potassium 4.5 mEq/L (3.5-5.1)
[2023-07-12 04:05] LABS: Absolute Lymphocytes (CBC) 0.7 K/uL (0.7-4.9); Absolute Monocytes 0.7 K/uL (0.1-1.3); Absolute Neutrophil 9.7 K/uL (1.8-8.0); Basophils % 0.2 % (0-1.3); Eosinophils % 0.3 % (0-4.4); Hematocrit 39.8 % (39.6-49.0); Hemoglobin 13.6 g/dL (13.6-17.9); Lymphocytes % 6.2 % (15.3-44.8); MCH 33.7 pg (27.0-35.0); MCHC 34.1 g/dL (32.0-36.0); MCV 98.7 fL (80-100); MPV 8.4 fL (7.6-11.3); Monocytes % 6.4 % (3.3-12.3); Neutrophils % 86.9 % (41.7-73.7); Platelets 189 thou/uL (152-406); RBC Red Blood Cell Count 4.03 M/uL (4.33-5.43); Red Cell Distribution Width 13.7 % (12.1-15.2)
--- NOTE | 2023-07-12 07:25 | P.PN ---
Subjective Date of Service: 07/12/23 Chief Complaint: Chest pain rule out acute coronary syndrome/pleuritic chest pain 93% on room air, receiving breathing treatments, reports productive cough, mild shortness of breath with exertion, reports using CPAP at bedtime at home. Evaluated by pulmonary today Eval for [facility] - Physical Exam General: Alert, In no apparent distress, Oriented x3 Respiratory: Diminished, equal unlabored, productive cough Cardiovascular: Regular rate/rhythm, Normal S1 S2, Systolic murmur Gastrointestinal: Normal bowel sounds, Soft and benign, Non-distended, No tenderness Musculoskeletal: No clubbing, No swelling, No tenderness Physical Examination - Vital Signs Temperature: 96.8 F Blood Pressure: 112/70 Pulse: 72 Respirations: 16 Pulse Ox (%): 97 - Studies Medications List Reviewed: Yes Assessment And Plan - Plan Assessment plan Pleuritic chest pain, Acute hypoxic respiratory failure secondary to COPD exacerbation Breathing treatments, O2 2 L keep sats greater than 90% Steroid use Troponins negative Pulmonary following Generalized weakness OT eval to assist with Plan to discharge to [facility] Leukocytosis likely secondary from steroids trend WBCs trending down Acute on chronic kidney injury unknown baseline BUN 83, creatinine 3.34 Trend kidney function Nephrology following Avoid nephrotoxic medication A-fib RVR Hyperlipidemia Hypertension Resume appropriate home meds Cardiology following Cardiology consult Dr. Rivera for A-fib RVR-discontinue Xarelto start Eliquis 2.5 twice daily 3/4 Echocardiogram . MILDLY DEPRESSED LEFT VENTRICULAR EJECTION FRACTION 40-45% 2. MILD GLOBAL HYPOKINESIS 3. LEFT ATRIAL ENLARGEMENT 4. CALCIFIED AORTIC VALVE WITH LIKELY AORTIC STENOSIS (SEVERITY NEEDS FURTHER EVALUATION) 5. MILD MITRAL REGURGITATION 3/4 Chest x-ray IMPRESSION: 1. Mildly enlarged cardiac silhouette. 2. No focal consolidation. Mild bilateral interstitial thickening, could represent mild interstitial edema Diabetes unknown control Sliding scale insulin, Accu-Cheks Full code DVT Diet cardiac Disposition, patient lives at home, wears CPAP at night, ambulates short distance independently
--- NOTE | 2023-07-12 09:59 | P.PN ---
Subjective Date of Service: 07/12/23 (Hospitalist) Chief Complaint: Congestive heart failure chronic renal failure Subjective: Improving (Patient is improving feeling very weak shortness of breath is improved) Review of Systems 10-point ROS is otherwise unremarkable General: Weakness Respiratory: Shortness of Breath Physical Examination - Vital Signs Temperature: 97.3 F Blood Pressure: 122/69 Pulse: 86 Respirations: 20 Pulse Ox (%): 94 - Physical Exam General: Alert, In no apparent distress, Oriented x3 Neck: Supple Cardiovascular: No edema, Regular rate/rhythm, Normal S1 S2 - Studies Medications List Reviewed: Yes Assessment And Plan - Current Problems (Diagnosis) (1) COPD with acute exacerbation Current Visit: Yes Status: Acute Plan: Patient is a heavy smoker has presumably underlying COPD continue with bronchodilators DC antibiotic (2) Congestive heart failure Current Visit: Yes Status: Acute Plan: Patient has congestive heart failure is doing better scheduled to be transferred to [facility] for rehabilitation (3) Atrial fibrillation Current Visit: Yes Status: Acute Plan: Rate controlled room air oxygenation satisfactory
--- NOTE | 2023-07-13 01:24 | PN ---
Date of Progress Note: 07/12/2023 Chief Complaint: Chest pain. History: The patient was admitted to rule out acute coronary syndrome. Patient was complaining of a typical chest pain and pleural effusion and was evaluated for possible source of chest pain. Review of Systems: Denies chest pain, palpitation. Physical Examination: Lungs: Diminished breath sounds at bases. Heart: S1, S2. Abdomen: Soft. Extremities: Slight edema. Impression And Plan: 1.Acute kidney injury secondary to over-diuresis superimposed with angiotensin receptor anjelica. Se rum creatinine level is gradually improving. Continue IV fluids and p.o. hydration. 2.Chronic kidney disease secondary to cardiorenal syndrome with superimposed acute kidney injury sec ondary to over-diuresis. Continue to monitor electrolytes. The patient is tolerating p.o. intake an d IV fluids. 3.Hypertension. Continue current medication regimen. 4.Congestive heart failure with exacerbation. Overall volemia improved. Due to acute kidney injury , losartan is on hold and Lasix was stopped. Patient was initiated on IV fluids. 5.Atrial fibrillation, per primary team. NGUYEN/YESY Voice ID: [id number] Report ID: [id number]
[2023-07-13 04:02] LABS: Absolute Eosinophils 0.1 K/uL (0-0.5); Absolute Lymphocytes (CBC) 1.3 K/uL (0.7-4.9); Absolute Monocytes 0.9 K/uL (0.1-1.3); Absolute Neutrophil 10.2 K/uL (1.8-8.0); Basophils % 0.3 % (0-1.3); Eosinophils % 1.1 % (0-4.4); Hematocrit 43.9 % (39.6-49.0); Lymphocytes % 10.3 % (15.3-44.8); MCH 33.7 pg (27.0-35.0); MCHC 34.2 g/dL (32.0-36.0); MCV 98.5 fL (80-100); MPV 7.9 fL (7.6-11.3); Monocytes % 7.2 % (3.3-12.3); Neutrophils % 81.1 % (41.7-73.7); Platelets 208 thou/uL (152-406); RBC Red Blood Cell Count 4.46 M/uL (4.33-5.43); Red Cell Distribution Width 13.7 % (12.1-15.2)
[2023-07-13 04:17] LABS: Albumin 3.1 g/dL (3.4-5.0); Phosphorus 3.2 mg/dL (2.5-4.9)
[2023-07-13] MEDS: HYDRALAZINE HCL 20 MG/ML VIAL IV PRN (05:28)
--- NOTE | 2023-07-13 10:29 | P.PN ---
Subjective Date of Service: 07/13/23 Chief Complaint: Congestive heart failure chronic renal failure Subjective: Improving (Improving still feeling weak continue with physical therapy shortness of breath and lower extremity edema have improved) Review of Systems 10-point ROS is otherwise unremarkable Physical Examination - Vital Signs Temperature: 96.8 F Blood Pressure: 161/94 Pulse: 84 Respirations: 18 Pulse Ox (%): 100 - Physical Exam General: Alert, In no apparent distress, Oriented x3 Neck: Supple Respiratory: Clear to auscultation bilaterally Cardiovascular: No edema, Regular rate/rhythm, Normal S1 S2 Gastrointestinal: Normal bowel sounds, Soft and benign - Studies Medications List Reviewed: Yes Assessment And Plan - Current Problems (Diagnosis) (1) COPD with acute exacerbation Current Visit: Yes Status: Acute Plan: Patient is doing better continue with bronchodilator (2) Congestive heart failure Current Visit: Yes Status: Acute Plan: Doing better continue with present medication patient's losartan and Lasix were both stopped blood pressure elevated add amlodipine Qualifiers: Heart failure type: systolic (3) Atrial fibrillation Current Visit: Yes Status: Acute Plan: Rate controlled room air oxygenation satisfactory no change (4) Chronic renal failure Current Visit: Yes Status: Acute Plan: Renal function is improving
[2023-07-13] MEDS: AMLODIPINE 5 MG TAB PO SCH (11:32)
--- NOTE | 2023-07-13 23:31 | PN ---
Date of Progress Note: 07/13/2023 Chief Complaint: Chest pain. History Of Present Illness: The patient was admitted to the hospital because of acute coronary syndr ome. The patient was complaining of typical chest pain and pleural effusion and was evaluated for po ssible source of chest pain. Review of Systems: Denies chest pain, palpitation, syncope. Physical Examination: Lungs: Diminished breath sounds at bases. Heart: S1, S2. Abdomen: Soft. Extremities: Slight edema. Impression And Plan: 1.Acute kidney injury secondary to overdiuresis superimposed with angiotensin receptor anjelica effec t. Serum creatinine level is gradually improving. Continue IV fluids and p.o. hydration. 2.Chronic kidney disease secondary to cardiorenal syndrome with superimposed acute kidney injury sec ondary to overdiuresis. Monitor electrolytes. Avoid nephrotoxic medication. The patient completed IV fluids and renal function has improved. 3.Hypertension. Continue current medication regimen. 4.Congestive heart failure exacerbation. The patient presented with hypervolemia. Volem ia has improved. He completed treatment with Lasix. Losartan and Lasix on hold due to acute kidney injury secondary to prerenal azotemia and nonoliguric acute tubular necrosis. The patient was initia cecelia on IV fluids and currently he is off IV fluids. Monitor electrolytes and renal panel. EB/MODL Voice ID: [id number] Report ID: [id number]
[2023-07-14 06:23] LABS: Absolute Basophils 0.1 K/uL (0-0.5); Absolute Eosinophils 0.3 K/uL (0-0.5); Absolute Lymphocytes (CBC) 1.6 K/uL (0.7-4.9); Absolute Monocytes 0.7 K/uL (0.1-1.3); Absolute Neutrophil 9.7 K/uL (1.8-8.0); Basophils % 0.5 % (0-1.3); Eosinophils % 2.8 % (0-4.4); MCH 33.4 pg (27.0-35.0); MCHC 34.2 g/dL (32.0-36.0); MCV 97.6 fL (80-100); MPV 8.1 fL (7.6-11.3); Monocytes % 5.9 % (3.3-12.3); Neutrophils % 77.8 % (41.7-73.7); Platelets 204 thou/uL (152-406); RBC Red Blood Cell Count 4.81 M/uL (4.33-5.43); Red Cell Distribution Width 13.7 % (12.1-15.2)
[2023-07-14 06:38] LABS: Albumin 3.2 g/dL (3.4-5.0); Anion Gap 8.4 mEq/L (5.0-15.0); Phosphorus 3.1 mg/dL (2.5-4.9); Potassium 4.4 mEq/L (3.5-5.1)
[2023-07-14 06:47] VITALS: BMI 35.5
[2023-07-14] MEDS: ACETAMINOPHEN 500 MG TAB PO PRN (21:28)
[2023-07-14 22:25] LABS: Complement C3 134 mg/dL (82-185)
--- NOTE | 2023-07-14 23:28 | PN ---
Date of Progress Note: 07/14/2023 Chief Complaint: Acute kidney injury, cardiorenal syndrome, pleural effusion, typical chest pain. Subjective: The patient presented to the hospital because of generalized weakness and chest pain. Alexi chavez was complaining of shortness of breath and was initiated on IV Lasix. Subsequently, renal function has declined. The patient was on mild hydration with IV fluids and this was terminated yesterday. The patient is tolerating p.o. intake. Renal function Review of Systems: Denies chest pain or palpitation. Physical Examination: Lungs: Diminished breath sounds at bases. Heart: S1, S2. Abdomen: Soft. Extremities: Slight edema. Impression And Plan: 1.Acute kidney injury secondary to overdiuresis superimposed with angiotensin receptor anjelica effec t. 2.Serum creatinine level is gradually improving. Continue IV fluids and p.o. hydration. IV fluids currently on hold. The patient tolerates p.o. intake. Plan is to terminate IV fluids. 3.Chronic kidney disease secondary to cardiorenal syndrome with superimposed acute kidney injury due to overdiuresis. Monitor electrolytes. Avoid nephrotoxic medication. The patient completed IV flu ids. Renal function improved. Avoid nonsteroidal anti-inflammatory medication. 4.Congestive heart failure with exacerbation. The patient presented with hypervolemia. Volemia sta tus has improved. Continue low-sodium diet and adequate p.o. fluid intake. 5.Losartan and Lasix are currently on hold due to acute kidney injury and severe prerenal azotemia, complicated by nonoliguric acute tubular necrosis. The patient responded to IV fluids. Continue to monitor electrolytes. EB/MODL Voice ID: [id number] Report ID: [id number]
[2023-07-15 08:11] LABS: Anion Gap 9.9 mEq/L (5.0-15.0); Phosphorus 3.5 mg/dL (2.5-4.9); Potassium 3.9 mEq/L (3.5-5.1)
[2023-07-15 15:14] LABS: Hepatitis C RNA (PCR) <15 IU/mL; Hepatitis C Virus RNA (PCR)log <1.18 log IU/mL
--- NOTE | 2023-07-15 15:54 | PN ---
Date of Progress Note: 07/15/2023 Subjective: The patient was admitted to the hospital with acute kidney injury secondary to over-diur esis. The patient feeling well. Diuresis has been stopped. The patient off IV fluid. Physical Examination: General: When I saw the patient, the patient sitting in bed, comfortable, not in any distress on suad m air. Vital Signs: Blood pressure 107/74, pulse of 84, afebrile. The patient had good urine output of 190 0, negative 700. Chest: Clear to auscultation. Heart: S1, S2, regular, systolic murmur. Abdomen: Soft, nontender. Extremities: No edema. Neurologic: Alert. No focality. Lab Data: Hemoglobin 16. Sodium 140, potassium 3.9, bicarb 24, BUN 57, creatinine 2.5, trending raúl n. Calcium 8.6, phosphorus 3.4, albumin 3, corrected calcium 9.4. Current Medications: Include: 1.Aspirin. 2. . 3.Flomax. 4.Nicotine. 5.Amlodipine. 6.Isosorbide. 7.Metoprolol. Imaging: Renal ultrasound, obstructive uropathy has been ruled out. Assessment And Plan: 1.Acute kidney injury secondary to over-diuresis superimposed with ARB, normal volume currently. Ob structive uropathy has been ruled out. I am going to keep holding ARB and Lasix. Keep holding IV fl uid. We will monitor the patient. 2.Chronic kidney disease secondary to cardiorenal with acute kidney injury as above. 3.Congestive heart failure. Currently the patient normal volume. I am going to continue to monitor the patient. 4.Atrial fibrillation, rate controlled. Follow up with Cardiology. The patient cleared from the re nal standpoint for discharge planning. IVY/YESY Voice ID: [id number] Report ID: [id number]
[2023-07-16 03:28] LABS: C-ANCA Anti-Proteinase 3 <1.0 AI (<1.0); P-ANCA Anti-Myeloperoxidase Ab <1.0 AI (<1.0)
--- NOTE | 2023-07-16 11:40 | PN ---
Date of Progress Note: 07/16/2023 Subjective: The patient was admitted to the hospital with acute kidney injury secondary to over diur esis. Lasix has been discontinued. The patient was started on gentle hydration. Kidney function imp roved. IV fluid has been discontinued. The patient is still on room air of diuresis for more than 7 2 hours. Physical Examination: Vital Signs: When I saw the patient, blood pressure 153/87, pulse of 79, afebrile. Chest: Clear to auscultation. Heart: S1, S2 regular. Abdomen: Soft, nontender. Extremities: No edema. Venous stasis change. Neurologic: Alert. No focality. Laboratory Data: WBC 12.5, hemoglobin 16. Sodium 140, potassium 3.9, bicarb 24, BUN 57, creatinine 2.5, GFR of 26, calcium 8.6, phosphorus 3.5, albumin 3, corrected calcium is 9.4. Current Medications: The patient on include: 1.Aspirin. 2.Cetirizine. 3.Flomax. 4.Amlodipine 5 mg. 5.Hydralazine p.r.n. 6.Isosorbide. 7.Metoprolol 50 b.i.d. 8.Tylenol. Assessment And Plan: 1.Acute kidney injury, normal size kidney, 9.5/10.2, minimal proteinuria, currently normal volume. I am going to keep holding the diuresis for the time being. I am going to go ahead and repeat chest x-ray for better evaluation of his fluid status and we will monitor the patient. 2.Chronic kidney disease secondary to cardiorenal, normal size kidney, proteinuric, nonnephrotic. I am going to keep holding diuresis. 3.Congestive heart failure, currently on the dry side. Repeat chest x-ray. 4.Atrial fibrillation as by primary. 5.Hypertension, controlled, optimal. Continue current treatment. 6.Renal cyst on the left side, 5 cm. No need for any intervention for the time being. IVY/YESY Voice ID: [id number] Report ID: [id number]
[2023-07-16 13:48] LABS: Anti-Nuclear Antibody Screen Negative (Negative)
[2023-07-16 16:48] LABS: Anti-Double Strand DNA Antibod <1 IU/mL (<=4)
--- NOTE | 2023-07-16 17:14 | P.CNS ---
Date of Consult: 07/16/23 Reason for Consult: Painful toenails Chief Complaint: Congestive heart failure chronic renal failure Allergies methocarbamol [From Robaxin] Allergy (Verified 07/24/16 23:32) Unknown simvastatin Adverse Reaction (Verified 07/24/16 23:32) Nausea/Vomiting statins Allergy (Uncoded 10/06/16 06:00) Unknown Home Medications: Nifedipine [Nifedipine ER] 60 mg PO DAILY 03/19/16 Montelukast [Singulair*] 10 mg PO DAILY 05/29/21 Rivaroxaban [Xarelto] 20 mg PO DAILY #30 tablet 05/30/21 Albuterol Sulfate [Proair Respiclick] 1 puff IH Q6H PRN 07/07/23 Cetirizine HCl 10 mg PO DAILY 07/07/23 Fluticasone [Flonase 50MCG Nasal [place]*] 2 sprays FATOUMATA DAILY 07/07/23 Furosemide [Lasix] 40 mg PO DAILY 07/07/23 Glimepiride 1 mg PO DAILY 07/07/23 Isosorbide Mononitrate 20 mg PO DAILY 07/07/23 Losartan Potassium [Cozaar*] 50 mg PO DAILY 07/07/23 Metoprolol Succinate [Toprol Xl] 50 mg PO DAILY 07/07/23 Tamsulosin HCl 0.4 mg PO DAILY 07/07/23 - Past Medical/Surgical History Diabetic: Yes -: MD -: DM-2 -: HTN -: Atrial fibrillation -: CHF -: Sleep Apnea -: CAD -: TIA -: HLD -: basal cell carcinoma -: Cardiac catheterization with stent placement x 5 -: Back surgery -: Tonsillectomy -: Adenoids -: Nose surgery -: 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 - Family History Father Medical History: Heart disease Mother Medical History: Heart disease, Hypertension, Diabetes Sister Medical History: Hypertension, Diabetes - Social History Smoking Status: Current every day smoker Alcohol use: No CD- Drugs: No Caffeine use: Yes Place of Residence: Home Review of Systems 10-point ROS is otherwise unremarkable Physical Examination Temp Pulse Resp BP Pulse Ox 98.0 F 72 18 128/79 95 07/16/23 12:00 07/16/23 12:00 07/16/23 12:00 07/16/23 12:00 07/16/23 12:00 General: Alert, In no apparent distress, Oriented x3 Cardiovascular: No edema, Abnormal pulses (0/4 dp and pt pulses bilateral lower extremity) Capillary refill: <2 Seconds Musculoskeletal: No clubbing, No swelling, No contractures, No erythema, No tenderness, No warmth Integumentary: No rashes, No breakdown, No significant lesion, No tenderness/swelling, No erythema, No warmth, No cyanosis, Other (Thickened hypertrophic nails with subungual debris x 10 digit nails, absent hair growth) Neurological: Abnormal sensation - Problems (1) Type 2 diabetes mellitus with diabetic peripheral angiopathy without gangrene Current Visit: Yes Status: Acute (2) Type 2 diabetes mellitus with diabetic polyneuropathy Current Visit: Yes Status: Acute (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 Patien to follow up outpatient for routine care upon discharge Physician Review: Patient Assessed, Agree with Above Assessment and Plan
--- NOTE | 2023-07-17 13:04 | PN ---
Date of Progress Note: 07/17/2023 Subjective: The patient was admitted to the hospital with acute kidney injury secondary to overdiure sis. The patient was treated with hydration. Kidney function improved. The patient is on room air for the last few days. Physical Examination: Vital Signs: Blood pressure 127/80, pulse of 75. Chest: Clear to auscultation. Heart: S1, S2 regular. Abdomen: Soft, nontender. Extremities: No edema. Neurologic: Alert. No focality. Laboratory Data: Hemoglobin 16. Sodium 140, potassium 3.9, bicarb 24, BUN 57, creatinine 2.5, calci um 8. Phosphorus 3.5. Current Medications: The patient is on include: 1.Aspirin. 2.Cetirizine. 3.Flomax. 4.Amiodarone. 5.Isosorbide. 6.Metoprolol. 7.Flonase. Assessment And Plan: 1.Acute kidney injury secondary to overdiuresis, normal size kidney, recovered. Looked to me, patie nt is still normal volume. I am going to go ahead and get repeated renal function to evaluate and we will follow up. Keep holding diuresis. 2.Hypertension, controlled, optimal. 3.Chronic kidney disease secondary to cardiorenal, normal size kidney, proteinuric, non nephrotic. Keep holding diuresis. We will follow up kidney function. 4.Atrial fibrillation, stable. 5.Hypertension, controlled, optimal. 6.Left renal cyst 5 cm simple. No need for further workup. PAT Voice ID: [id number] Report ID: [id number]
[2023-07-17 22:40] VITALS: O2SAT 99
--- NOTE | 2023-07-18 04:02 | P.PN ---
Date of Service: 07/14/23 Subjective Patient continues to improve. Patient's clinical symptoms are stable. Patient's respiratory status has improved. Physical Examination - Vital Signs reviewed - Physical Exam General: Alert, In no apparent distress, Oriented x3 Respiratory: Diminished, Expiratory wheezes Cardiovascular: Regular rate/rhythm, Normal S1 S2, Systolic murmur Gastrointestinal: Normal bowel sounds, Soft and benign, Non-distended, No tenderness Musculoskeletal: No clubbing, No swelling, No tenderness Integumentary: No rashes Neurological: Sensation intact, Cranial nerves 3-12 intact Assessment & Plan - Problems (Diagnosis) (1) Pleuritic chest pain Current Visit: Yes Status: Acute (2) Atrial fibrillation with RVR Onset Date: 05/22/15 Current Visit: No Status: Acute (3) Diabetes type 2, controlled Current Visit: No Status: Acute (4) CAD (coronary artery disease) Current Visit: No Status: Chronic (5) HLD (hyperlipidemia) Current Visit: No Status: Chronic (6) Hypertension Current Visit: No Status: Chronic (7) COPD with acute exacerbation Current Visit: Yes Status: Acute - Plan Continue with plan of care as mentioned below: -High-sensitivity troponin have been negative -Cardiology consultation is appreciated; changed amiodarone to p.o. -Echocardiogram reviewed -Continue with nebs, steroids, and antibiotics -Plleuritic chest pain-continue with steroids and antibiotics. -Strict blood pressure control -Changed to inpatient Discharge Plan: Home Plan to discharge in: Greater than 2 days - Advance Directives Does patient have a Living Will: No Does patient have a Durable POA for Healthcare: No - Code Status/Comfort Care Code Status: Full Code Critical Care: No Time Spent Managing PTS Care (In Minutes): 35
--- NOTE | 2023-07-18 04:05 | P.PN ---
Date of Service: 07/15/23 Subjective Patient is doing well. Patient continues to improve. Patient requested Podiatry; they will give them a come see patient. Patient's respiratory status is much better. Continue to work with physical therapy and patient walking. We are waiting for expedited appeal from inpatient rehab. Physical Examination - Vital Signs reviewed - Physical Exam General: Alert, In no apparent distress, Oriented x3 Respiratory: Diminished, Expiratory wheezes Cardiovascular: Regular rate/rhythm, Normal S1 S2, Systolic murmur Gastrointestinal: Normal bowel sounds, Soft and benign, Non-distended, No tenderness Musculoskeletal: No clubbing, No swelling, No tenderness Integumentary: No rashes Neurological: Sensation intact, Cranial nerves 3-12 intact Assessment & Plan - Problems (Diagnosis) (1) Pleuritic chest pain Current Visit: Yes Status: Acute (2) Atrial fibrillation with RVR Onset Date: 05/22/15 Current Visit: No Status: Acute (3) Diabetes type 2, controlled Current Visit: No Status: Acute (4) CAD (coronary artery disease) Current Visit: No Status: Chronic (5) HLD (hyperlipidemia) Current Visit: No Status: Chronic (6) Hypertension Current Visit: No Status: Chronic (7) COPD with acute exacerbation Current Visit: Yes Status: Acute - Plan Continue with plan of care as mentioned below: -High-sensitivity troponin have been negative -Cardiology consultation is appreciated; changed amiodarone to p.o. -Echocardiogram reviewed -Continue with nebs, steroids, and antibiotics -Plleuritic chest pain-continue with steroids and antibiotics. -Strict blood pressure control -We are waiting for expedited appeal to be completed. Discharge Plan: IPR Plan to discharge in: Greater than 2 days - Advance Directives Does patient have a Living Will: No Does patient have a Durable POA for Healthcare: No - Code Status/Comfort Care Code Status: Full Code Critical Care: No Time Spent Managing PTS Care (In Minutes): 35
--- NOTE | 2023-07-18 04:07 | P.PN ---
Date of Service: 07/16/23 Subjective Patient is doing well. Appreciate Podiatry assistance in patient's care. Patient is feels much happier with nails removed. Patient still has occasional cough but patient is doing much better. Continue with steroids. Continue with antibiotics. Continue with neb treatments as needed. Continue with amiodarone and anticoagulation. Anticipate discharge once expedited appeal is completed. Physical Examination - Vital Signs reviewed - Physical Exam General: Alert, In no apparent distress, Oriented x3 Respiratory: Diminished, Expiratory wheezes Cardiovascular: Regular rate/rhythm, Normal S1 S2, Systolic murmur Gastrointestinal: Normal bowel sounds, Soft and benign, Non-distended, No tenderness Musculoskeletal: No clubbing, No swelling, No tenderness Integumentary: No rashes Neurological: Sensation intact, Cranial nerves 3-12 intact Assessment & Plan - Problems (Diagnosis) (1) Pleuritic chest pain Current Visit: Yes Status: Acute (2) Atrial fibrillation with RVR Onset Date: 05/22/15 Current Visit: No Status: Acute (3) Diabetes type 2, controlled Current Visit: No Status: Acute (4) CAD (coronary artery disease) Current Visit: No Status: Chronic (5) HLD (hyperlipidemia) Current Visit: No Status: Chronic (6) Hypertension Current Visit: No Status: Chronic (7) COPD with acute exacerbation Current Visit: Yes Status: Acute - Plan Continue with plan of care as mentioned below: -Cardiology consultation is appreciated; changed amiodarone to p.o. Continue with Xarelto. -Echocardiogram reviewed -Continue with nebs, steroids, and antibiotics -Plleuritic chest pain-continue with steroids and antibiotics. -Strict blood pressure control -We are waiting for expedited appeal to be completed. -Continuing with physical therapy. Patient's strength has improved. Patient states of expedited appeal is and completed than he wants to go home with home health. Discharge Plan: IPR Plan to discharge in: Greater than 2 days - Advance Directives Does patient have a Living Will: No Does patient have a Durable POA for Healthcare: No - Code Status/Comfort Care Code Status: Full Code Critical Care: No Time Spent Managing PTS Care (In Minutes): 35
--- NOTE | 2023-07-18 04:10 | P.PN ---
Date of Service: 07/17/23 Subjective notified by social work that [employer] never did the expedited appeal. Patient is doing well with physical therapy and patient continues to do well then he is requesting to go home with home health. Will discuss case with patient at this time. Anticipate discharge over the next 24-48 hours. Physical Examination - Vital Signs reviewed - Physical Exam General: Alert, In no apparent distress, Oriented x3 Respiratory: Diminished, Expiratory wheezes ; otherwise clear Cardiovascular: Regular rate/rhythm, continue with systolic ejection murmur 2/6 Gastrointestinal: Normal bowel sounds, Soft and benign, Non-distended, No tenderness Musculoskeletal: No clubbing, minimal lower extremity edema, No tenderness Integumentary: skin bruising Neurological: generalized weakness but no focal deficits Assessment & Plan - Problems (Diagnosis) (1) Pleuritic chest pain Current Visit: Yes Status: Acute (2) Atrial fibrillation with RVR Onset Date: 05/22/15 Current Visit: No Status: Acute (3) Diabetes type 2, controlled Current Visit: No Status: Acute (4) CAD (coronary artery disease) Current Visit: No Status: Chronic (5) HLD (hyperlipidemia) Current Visit: No Status: Chronic (6) Hypertension Current Visit: No Status: Chronic (7) COPD with acute exacerbation Current Visit: Yes Status: Acute - Plan Continue with plan of care as mentioned below: -Cardiology consultation is appreciated; continue with amiodarone. Continue wi th Xarelto. -Echocardiogram reviewed -Continue with nebs, steroids, and antibiotics -Plleuritic chest pain-continue with steroids and antibiotics. -Strict blood pressure control -expedited appeal was not done. Patient may want to go home with home health. We will discuss with patient his preference. -Continuing with physical therapy. Patient's strength has improved. Patient states of expedited appeal is and completed than he wants to go home with home health. Discharge Plan: IPR Plan to discharge in: Greater than 2 days - Advance Directives Does patient have a Living Will: No Does patient have a Durable POA for Healthcare: No - Code Status/Comfort Care Code Status: Full Code Critical Care: No Time Spent Managing PTS Care (In Minutes): 35
[2023-07-18 05:47] VITALS: TEMP 97.2
[2023-07-18 06:32] LABS: Absolute Eosinophils 0.3 K/uL (0-0.5); Absolute Lymphocytes (CBC) 1.7 K/uL (0.7-4.9); Absolute Monocytes 0.7 K/uL (0.1-1.3); Absolute Neutrophil 7.6 K/uL (1.8-8.0); Basophils % 0.4 % (0-1.3); Eosinophils % 2.6 % (0-4.4); Hematocrit 38.1 % (39.6-49.0); Hemoglobin 13.1 g/dL (13.6-17.9); Lymphocytes % 16.5 % (15.3-44.8); MCH 33.7 pg (27.0-35.0); MCHC 34.5 g/dL (32.0-36.0); MCV 97.6 fL (80-100); MPV 8.4 fL (7.6-11.3); Monocytes % 6.9 % (3.3-12.3); Neutrophils % 73.6 % (41.7-73.7); Platelets 179 thou/uL (152-406); Red Cell Distribution Width 13.6 % (12.1-15.2)
[2023-07-18 06:41] LABS: Albumin 2.8 g/dL (3.4-5.0); Anion Gap 9.1 mEq/L (5.0-15.0); Phosphorus 3.1 mg/dL (2.5-4.9); Potassium 4.1 mEq/L (3.5-5.1)
[2023-07-18 18:36] VITALS: BP 168/80
--- NOTE | 2023-07-19 02:37 | PN ---
Date of Progress Note: 07/18/2023 Subjective: The patient is admitted to the hospital because of congestive heart failure, cardiorenal syndrome. He developed worsening of the renal function due to over-diuresis and he received mild hy dration. Currently, he is on main diuretic dose. Renal function has improved in response to IV flui ds. Review of Systems: Denies chest pain, palpitations. Physical Examination: Lungs: Clear to auscultation bilaterally. Heart: S1, S2. No pericardial friction rub. Abdomen: Soft, benign, nontender. Extremities: No edema. Laboratory Data: Sodium 140, potassium 3.9, BUN 57, creatinine 2.5, calcium 8, phosphorus 3.5. Impression: 1.Acute kidney injury secondary to cardiorenal syndrome and diuretic. The patient will continue low -sodium diet. The patient will resume diuretic outpatient. 2.Hypertension. Continue to monitor blood pressure. 3.Chronic kidney disease secondary to benign nephrosclerosis. There is no significant proteinuria. Renal ultrasound showed normal size kidney. 4.Hypertension, controlled, optimal. 5.Left renal cyst, 5 cm, followup outpatient. EB/MODL Voice ID: [id number] Report ID: [id number]
== END 2023-07-18 18:37 | disposition home health service (06) | DRG 291 ==
LOC: ER 04:42 → ERHOLD 06:57 → 3RD-ICU 08:33 → 4TH 07-08 21:42
PROVIDERS: ADMIT Hospitalist; ATTEND Hospitalist
DX: I13.0 Hypertensive heart and chronic kidney disease with heart failure and stage 1 through stage 4 chronic kidney disease, or unspecified chronic kidney disease (principal); I50.21 Acute systolic (congestive) heart failure; J96.01 Acute respiratory failure with hypoxia; N17.0 Acute kidney failure with tubular necrosis; J44.1 Chronic obstructive pulmonary disease with (acute) exacerbation; I48.91 Unspecified atrial fibrillation; I25.110 Atherosclerotic heart disease of native coronary artery with unstable angina pectoris; N18.9 Chronic kidney disease, unspecified; E11.22 Type 2 diabetes mellitus with diabetic chronic kidney disease; E11.42 Type 2 diabetes mellitus with diabetic polyneuropathy; E11.51 Type 2 diabetes mellitus with diabetic peripheral angiopathy without gangrene; E78.5 Hyperlipidemia, unspecified; N28.1 Cyst of kidney, acquired; I34.0 Nonrheumatic mitral (valve) insufficiency; I25.2 Old myocardial infarction; F17.210 Nicotine dependence, cigarettes, uncomplicated; B35.1 Tinea unguium; Z88.8 Allergy status to other drugs, medicaments and biological substances; Z95.5 Presence of coronary angioplasty implant and graft; Z99.89 Dependence on other enabling machines and devices; Z79.84 Long term (current) use of oral hypoglycemic drugs; Z79.01 Long term (current) use of anticoagulants; Z79.02 Long term (current) use of antithrombotics/antiplatelets; Z86.73 Personal history of transient ischemic attack (TIA), and cerebral infarction without residual deficits; Z79.899 Other long term (current) drug therapy
CPT/HCPCS: 36415; 71045; 76770; 80048; 80053; 80069; 80076; 81001; 82550; 82570; 82947; 83520; 83735; 83880; 83970; 84156; 84443; 84484; 84550; 85025; 85610; 86021; 86038; 86160; 86225; 86430; 87522; 93005; 93306; 94640; 96374; 96375; 97110; 97116; 97161; 97165; 97530; 99285; J0282; J0360; J0696; J1815; J1940; J2270; J2543; J2930; J3535; J7030; J7060; J7512; J7613; J7644; P9047

== ENCOUNTER 2023-07-29 08:24 | Observation (INO) | payer OTHER ==
[2023-07-29 09:01] LABS: Absolute Basophils 0.1 K/uL (0-0.5); Absolute Eosinophils 0.4 K/uL (0-0.5); Absolute Monocytes 0.4 K/uL (0.1-1.3); Absolute Neutrophil 6.3 K/uL (1.8-8.0); Basophils % 0.9 % (0-1.3); Eosinophils % 4.8 % (0-4.4); Hematocrit 36.6 % (39.6-49.0); Hemoglobin 12.6 g/dL (13.6-17.9); Lymphocytes % 12.5 % (15.3-44.8); MCH 33.7 pg (27.0-35.0); MCHC 34.5 g/dL (32.0-36.0); MCV 97.6 fL (80-100); MPV 7.5 fL (7.6-11.3); Monocytes % 4.5 % (3.3-12.3); Neutrophils % 77.3 % (41.7-73.7); Nucleated Red Blood Cells % 0.1 % (0-0); Platelets 193 thou/uL (152-406); RBC Red Blood Cell Count 3.75 M/uL (4.33-5.43); Red Cell Distribution Width 14.1 % (12.1-15.2)
--- NOTE | 2023-07-29 09:13 | RAD REPORT ---
EXAM DESCRIPTION: CT - Head Brain Wo Cont - 07/29/2023 9:01 am CLINICAL HISTORY: Blurred vision COMPARISON: 2015 TECHNIQUE: Computed axial tomography of the head was obtained. IV contrast was not requested. All CT scans are performed using dose optimization technique as appropriate and may include automated exposure control or mA/KV adjustment according to patient size. FINDINGS: An intracranial bleed is not seen The ventricles are normal in caliber No extra-axial fluid collection is noted. Mild low-density areas within periventricular, deep and subcortical white matter likely represent isc hemic changes secondary to small vessel disease. Fluid within the sinuses/ mastoids is not seen. IMPRESSION: No acute intracranial abnormality is seen If patient's symptoms persist MRI of the brain would be recommended
[2023-07-29 09:28] LABS: Albumin 3.1 g/dL (3.4-5.0); Albumin/Globulin Ratio 0.9 (1.1-1.8); Anion Gap 9.8 mEq/L (5.0-15.0); Bilirubin Direct 0.2 mg/dL (0-0.2); Bilirubin Indirect, Calculated 0.4 mg/dL (0.2-0.8); Bilirubin Total 0.6 mg/dL (0.2-1.0); Globulin 3.3 g/dL (2.3-3.5); Potassium 3.8 mEq/L (3.5-5.1); Protein, Total 6.4 g/dL (6.4-8.2); Troponin High Sensitivity 16.6 pg/mL (<58.9)
--- NOTE | 2023-07-29 09:44 | RAD REPORT ---
EXAM DESCRIPTION: Kiara Single View07/29/2023 9:09 am CLINICAL HISTORY: Chest pain COMPARISON: July 10, 2023 FINDINGS: A prominent right pericardial opacity probably epicardial fat. The lungs appear clear of acute infiltrate. The heart is mildly to moderately enlarged
[2023-07-29] MEDS ORDERED: NA CHLORIDE 0.9% 500 ML ONE (10:38)
--- NOTE | 2023-07-29 11:14 | ER ---
Nurse's Notes [facility] Name: Frank Shaw Age: 73 yrs Sex: Male : 1950 Arrival Date: 07/29/2023 Time: 08:24 Bed 16 Private MD: Diagnosis: Dyspnea;Hypotension, unspecified Presentation: 07/28 08:34 Chief complaint: Patient states: Weak, dizzy, SOB and blurred vision. Coronavirus ll1 screen: Client denies travel out of the [place] in the last 14 days. At this time, the client does not indicate any symptoms associated with coronavirus-19. Ebola Screen: Patient denies travel to an Ebola-affected area in the 21 days before illness onset. Initial Sepsis Screen: Does the patient meet any 2 criteria? No. Patient's initial sepsis screen is negative. Does the patient have a suspected source of infection? No. Patient's initial sepsis screen is negative. Risk Assessment: Do you want to hurt yourself or someone else? Patient reports no desire to harm self or others. Onset of symptoms was July 29, 2023. 08:34 Method Of Arrival: EMS: [facility] ll1 08:34 Acuity: AGUS 2 ll1 Historical: - Allergies: 08:33 Methocarbamol; ll1 08:33 Robaxin; ll1 08:33 statins; ll1 - PMHx: 08:33 Atrial fibrillation; CAD; diabetes mellitus; Left lung Pneumothorax; Myocardial ll1 infarction; CVA; COPD; Renal Disease; Hypertensive disorder; Sleep Apnea; Hernia; Hearing Loss with hearing aids; TIA; CHF; - PSHx: 08:33 back sx; Heart Stents; ll1 - Immunization history:: Adult Immunizations up to date. - Social history:: Smoking status: Patient denies any tobacco usage or history of. - Family history:: not pertinent. Screenin:14 [facility] ED Fall Risk Assessment (Adult) History of falling in the last 3 months, ll1 including since admission No falls in past 3 months (0 pts) Confusion or Disorientation No (0 pts) Intoxicated or Sedated No (0 pts) Impaired Gait Yes (1 pt) Mobility Assist Device Used No (0 pt) Altered Elimination No (0 pt) Score/Fall Risk Level 0 - 2 = Low Risk Maintained a safe environment, Hourly rounding (assess needs \T\ fall precautionary measures) done. Abuse screen: Denies threats or abuse. Nutritional screening: No deficits noted. Tuberculosis screening: No symptoms or risk factors identified. Assessment: 08:35 General: Appears in no apparent distress. Behavior is calm, cooperative, appropriate ll1 for age. Pain: Denies pain. Neuro: Reports dizziness, weakness blurred vision. 09:13 Reassessment: Back from CT. ll1 09:18 Reassessment: No changes from previously documented assessment. Patient and/or family ll1 updated on plan of care and expected duration. Pain level reassessed. Patient is alert, oriented x 3, equal unlabored respirations, skin warm/dry/pink. 09:54 Reassessment: No changes from previously documented assessment. Patient and/or family ll1 updated on plan of care and expected duration. Pain level reassessed. Patient is alert, oriented x 3, equal unlabored respirations, skin warm/dry/pink. Patient states feeling better. 10:25 Reassessment: No changes from previously documented assessment. Patient and/or family hb updated on plan of care and expected duration. Pain level reassessed. Patient is alert, oriented x 3, equal unlabored respirations, skin warm/dry/pink. report given to TRENT Lindsay. 11:18 Reassessment: Patient and/or family updated on plan of care and expected duration. Pain mb9 level reassessed. Patient is alert, oriented x 3, equal unlabored respirations, skin warm/dry/pink. Patient states feeling better. Patient states symptoms have improved. Pain: Denies pain. Cardiovascular: Patient's skin is warm and dry. Respiratory: Airway is patent Respiratory effort is even, unlabored, Respiratory pattern is regular, symmetrical. GI: No signs and/or symptoms were reported involving the gastrointestinal system. : No signs and/or symptoms were reported regarding the genitourinary system. 12:45 Reassessment: No changes from previously documented assessment. Patient and/or family mb9 updated on plan of care and expected duration. Pain level reassessed. Patient is alert, oriented x 3, equal unlabored respirations, skin warm/dry/pink. 13:07 Reassessment: see [facility] for further charting. mb9 Vital Signs: 08:34 BP 89 / 55; Pulse 62; Resp 17; Temp 97.3; Pulse Ox 100% on R/A; Pain 0/10; ll1 08:50 BP 90 / 50; Pulse 77; Resp 18; Pulse Ox 100% ; ll1 09:48 BP 101 / 54; Pulse 69; Resp 17; Pulse Ox 100% ; ll1 10:25 BP 85 / 54; Pulse 72; Resp 18; hb 11:18 BP 80 / 60; Pulse 61; Resp 18; Pulse Ox 100% on R/A; mb9 11:34 BP 88 / 55; Pulse 65; Resp 18; Pulse Ox 100% on R/A; mb9 12:02 BP 84 / 43; Pulse 96; Resp 16; Pulse Ox 100% on 2 lpm NC; mb9 12:10 BP 94 / 68; Pulse 64; Resp 18; Pulse Ox 100% on R/A; mb9 08:34 Pain Scale: Adult ll1 10:25 Dr. Rogers informed of BP hb ED Course: 08:26 Patient arrived in ED. ll1 08:30 Georgi Rogers MD is Attending Physician. rt 08:30 Inserted saline lock: 18 gauge in right forearm, using aseptic technique. Blood ll1 collected. 08:33 Sj Bob, RN is Primary Nurse. ll1 08:33 Arm band placed on Patient placed in an exam room, on a stretcher. ll1 08:35 Triage completed. ll1 08:45 EKG done, by ED staff, reviewed by Georgi Rogers MD. ll1 08:50 Initial lab(s) drawn, by nc, sent to lab. ll1 09:03 CT Head Brain wo Cont In Process Unspecified. EDMS 09:11 XRAY Chest (1 view) In Process Unspecified. EDMS 09:15 Patient has correct armband on for positive identification. Bed in low position. Call ll1 light in reach. Provided Education on: ER procedures and process. Client placed on continuous cardiac and pulse oximetry monitoring. NIBP monitoring applied. overnight caregiver on. 09:18 Warm blanket given. ll1 09:25 Diet: coffee. ll1 10:20 Notified ED physician of other low BP Notified Charge Nurse of low BP. ll1 11:13 Stu Cooper MD is Hospitalizing Provider. rt 11:18 No provider procedures requiring assistance completed. Patient admitted, IV remains in mb9 place. Administered Medications: 10:40 Drug: NS 0.9% IV 500 ml IV at calculated rate continuous Route: IV; Rate: calculated hb rate; Site: right forearm; 13:07 Follow up: Response: No adverse reaction; IV Status: Completed infusion mb9 Medication: 09:15 VIS not applicable for this client. ll1 Outcome: 11:13 Decision to Hospitalize by Provider. rt 14:11 Admitted to Med/surg accompanied by tech, via wheelchair, room 211, mb9 14:11 Condition: stable 14:11 Instructed on the need for admit, 14:11 Patient left the ED. mb9 Signatures: Dispatcher [employer] EDMS Belgica Jones RN RN hb Lewis, Lynsay, RN RN ll1 Dee Mc RN RN mb9 Georgi Rogers MD MD rt Corrections: (The following items were deleted from the chart) 10:26 10:25 Reassessment: No changes from previously documented assessment. Patient and/or hb family updated on plan of care and expected duration. Pain level reassessed. Patient is alert, oriented x 3, equal unlabored respirations, skin warm/dry/pink. hb 10:39 08:35 Neuro: Reports dizziness, weakness blurred vision. ll1 ll1 12:49 12:01 Assisted provider with central line placement. Set up central line tray. Triple mb9 lumen line placed in right internal jugular. Line placed by Georgi Rogers MD Placement verified by CXR, blood return, Dressed with Tegaderm, Patient tolerated well. Before procedure, did Practitioner(s) obtain informed consent? Yes. Patient \T\ family education about procedure, CLABSI prevention and S/S of infection? Yes. Time-out/Briefing performed prior to start of procedure? Yes. Was handwashing/sanitizing done immediately prior to procedure? Yes. Was patient positioned to in a way to prevent air embolism? Yes. Was procedure site sterilized? Yes, with chlorhexidine. Was the site allowed to dry? Yes. Was local anesthetic and/or sedation utilized? No. During the procedure, did the Practitioner(s) maintain a sterile field? Yes. Were unused ports clamped during insertion? Yes. Was blood aspirated from each lumen? Yes. After the procedure, did the Practitioner(s) clean the site and apply a sterile dressing? Yes. mbYung
--- NOTE | 2023-07-29 11:14 | EDPHYS ---
Physician Documentation [facility] Name: Frank Shaw Age: 73 yrs Sex: Male : 1950 Arrival Date: 07/29/2023 Time: 08:24 Bed 16 Private MD: ED Physician Georgi Rogers HPI: 07/28 09:38 This 73 yrs old Male presents to ER via EMS with complaints of shortness of breath, rt blurred vision. 09:38 Patient presents to the ED with shortness of breath, reported blurry vision. Patient rt states this started at about 6. States that he was sitting in a car when it occurred, hit him all of a sudden. Was feeling well prior to this. States that the symptoms have improved but not completely resolved. Denies other acute complaints, symptoms are moderate in severity, no other aggravating or alleviating factors.. Historical: - Allergies: 08:33 Methocarbamol; ll1 08:33 Robaxin; ll1 08:33 statins; ll1 - PMHx: 08:33 Atrial fibrillation; CAD; diabetes mellitus; Left lung Pneumothorax; Myocardial ll1 infarction; CVA; COPD; Renal Disease; Hypertensive disorder; Sleep Apnea; Hernia; Hearing Loss with hearing aids; TIA; CHF; - PSHx: 08:33 back sx; Heart Stents; ll1 - Immunization history:: Adult Immunizations up to date. - Social history:: Smoking status: Patient denies any tobacco usage or history of. - Family history:: not pertinent. ROS: 09:38 Constitutional: Negative for fever, chills, and weight loss, Cardiovascular: Negative rt for chest pain, palpitations, and edema, Abdomen/GI: Negative for abdominal pain, nausea, vomiting, diarrhea, and constipation, MS/Extremity: Negative for injury and deformity, Skin: Negative for injury, rash, and discoloration, Neuro: Negative for headache, weakness, numbness, tingling, and seizure, 09:38 Eyes: Positive for blurry vision, Negative for pain, 09:38 Respiratory: Positive for shortness of breath, Negative for cough, Exam: 09:38 Constitutional: This is a well developed, well nourished patient who is awake, alert, rt and in no acute distress. Head/Face: Normocephalic, atraumatic. Chest/axilla: Normal chest wall appearance and motion. Nontender with no deformity. No lesions are appreciated. Cardiovascular: Regular rate and rhythm with a normal S1 and S2. No gallops, murmurs, or rubs. Normal PMI, no JVD. No pulse deficits. Abdomen/GI: Soft, non-tender, with normal bowel sounds. No distension or tympany. No guarding or rebound. No evidence of tenderness throughout. Skin: Warm, dry with normal turgor. Normal color with no rashes, no lesions, and no evidence of cellulitis. MS/ Extremity: Pulses equal, no cyanosis. Neurovascular intact. Full, normal range of motion. Neuro: Awake and alert, GCS 15, oriented to person, place, time, and situation. Cranial nerves II-XII grossly intact. Motor strength 5/5 in all extremities. Sensory grossly intact. Cerebellar exam normal. Normal gait. Psych: Awake, alert, with orientation to person, place and time. Behavior, mood, and affect are within normal limits. 09:38 ECG was reviewed by the Attending Physician. 09:38 Respiratory: Slightly increased work of breathing, lungs are clear to auscultation bilaterally, Vital Signs: 08:34 BP 89 / 55; Pulse 62; Resp 17; Temp 97.3; Pulse Ox 100% on R/A; Pain 0/10; ll1 08:50 BP 90 / 50; Pulse 77; Resp 18; Pulse Ox 100% ; ll1 09:48 BP 101 / 54; Pulse 69; Resp 17; Pulse Ox 100% ; ll1 10:25 BP 85 / 54; Pulse 72; Resp 18; hb 11:18 BP 80 / 60; Pulse 61; Resp 18; Pulse Ox 100% on R/A; mb9 11:34 BP 88 / 55; Pulse 65; Resp 18; Pulse Ox 100% on R/A; mb9 12:02 BP 84 / 43; Pulse 96; Resp 16; Pulse Ox 100% on 2 lpm NC; mb9 12:10 BP 94 / 68; Pulse 64; Resp 18; Pulse Ox 100% on R/A; mb9 08:34 Pain Scale: Adult ll1 10:25 Dr. Rogers informed of BP hb MDM: 08:30 Patient medically screened. rt 11:15 Differential Diagnosis Hypertension, CHF, COPD. Data reviewed: vital signs, nurses rt notes, lab test result(s), EKG, radiologic studies. Consideration of Admission/Observation Patient was admitted/placed on observation. Management of patient was discussed with the following: Hospitalist: Agrees to admit. I considered the following discharge prescriptions or medication management in the emergency department Medications were administered in the Emergency Department. See MAR. Independent interpretation of the following test(s) in the Emergency Department X-Ray: My interpretation is No pneumonia seen on interpretation of x-ray images. Test considered but Not performed: CT: Low suspicion for PE, CT angiogram not indicated. Care significantly affected by the following chronic conditions: CAD, CHF, A-fib. Counseling: I had a detailed discussion with the patient and/or guardian regarding the historical points, exam findings, and any diagnostic results supporting the discharge/admit diagnosis, lab results, radiology results, the need for further work-up and treatment in the hospital. 07/28 08:48 Order name: Basic Metabolic Panel; Complete Time: 09:28 rt 07/28 08:48 Order name: CBC with Diff; Complete Time: : rt 07/28 08:48 Order name: LFT's; Complete Time: : rt 07/28 08:48 Order name: Magnesium; Complete Time: 09: rt 07/28 08:48 Order name: NT PRO-BNP; Complete Time: : rt 07/28 08:48 Order name: Troponin HS; Complete Time: : rt 07/28 11:40 Order name: PT-INR; Complete Time: 13:02 ll1 07/28 08:48 Order name: XRAY Chest (1 view); Complete Time: 09:48 rt 07/28 08:48 Order name: CT Head Brain wo Cont; Complete Time: 09: rt 07/28 08:48 Order name: EKG; Complete Time: 08:48 rt 07/28 08:48 Order name: Cardiac monitoring; Complete Time: 08:49 rt 07/28 08:48 Order name: EKG - Nurse/Tech; Complete Time: 08:49 rt 07/28 08:48 Order name: IV Saline Lock; Complete Time: 08:49 rt 07/28 08:48 Order name: Labs collected and sent; Complete Time: 08:49 rt 07/28 08:48 Order name: O2 Per Protocol; Complete Time: 08:49 rt 07/28 08:48 Order name: O2 Sat Monitoring; Complete Time: 08:49 rt EC:38 Rate is 85 beats/min. Rhythm is irregularly irregular, A fib with No ectopy. Right axis rt deviation noted. QRS interval is normal. QT interval is normal. No Q waves. No ST changes noted. Administered Medications: 10:40 Drug: NS 0.9% IV 500 ml IV at calculated rate continuous Route: IV; Rate: calculated hb rate; Site: right forearm; 13:07 Follow up: Response: No adverse reaction; IV Status: Completed infusion mb9 Disposition Summary: 07/29/23 11:13 Hospitalization Ordered Notes: Hospitalization Status: Observation rt Provider: Stu Cooper rt Condition: Stable rt Problem: new rt Symptoms: have improved rt Bed/Room Type: Standard rt Location: Telemetry/MedSurg (observation)(07/29/23 13:25) bd Room Assignment: 211(07/29/23 13:52) bd Diagnosis - Dyspnea rt - Hypotension, unspecified rt Forms: - Medication Reconciliation Form rt - SBAR form rt - Leadership Thank You Letter rt Signatures: Dispatcher [employer] EDCeci Lau bd Belgica Jones RN RN Sj Bob RN RN ll1 Georgi Rogers MD MD rt Dee Mc RN mb9 Corrections: (The following items were deleted from the chart) 12:09 11:13 Telemetry/MedSurg (observation) rt bd 12:09 11:13 rt bd 13:25 12:09 [facility] ER HOLD bd bd 13:25 12:09 ERHOLD- bd bd 13:52 13:25 207 bd bd
[2023-07-29 12:40] LABS: PT Prothrombin Time 38.7 SECONDS (9.5-12.5); Protime INR 3.65
[2023-07-29] MEDS ORDERED: NA CHLORIDE 0.9% 1,000 ML ONE (12:58)
[2023-07-29] MEDS: NA CHLORIDE 0.9% 1,000 ML IV SCH (13:00)
[2023-07-29 13:03] VITALS: BMI 33.2
--- NOTE | 2023-07-29 13:35 | P.HP ---
Certification for Inpatient Patient admitted to: Observation With expected LOS: <2 Midnights Patient will require the following post-hospital care: None Practitioner: I am a practitioner with admitting privileges, knowledge of patient current condition, hospital course, and medical plan of care. Services: Services provided to patient in accordance with Admission requirements found in Title 42 Section 412.3 of the Code of Federal Regulations Patient History Date of Service: 07/29/23 Reason for admission: Near syncope, hypotension History of Present Illness: 73-year-old male with history of atrial fibrillation on chronic anticoagulation, chronic diastolic congestive heart failure, CAD with previous bypass, CKD diabetes mellitus type [id number], hypertension, hyperlipidemia, COPD presents emergency department with chief complaint of lightheadedness, near syncope. He reports he was sitting in his car when he began have numbness and tingling in all of his extremities as well as feeling lightheaded. EMS was called and patient was transferred to hospital for further valuation. He was evaluated in the emergency department and his labs are significant for hemoglobin 12.6 medic at 36.6 INR 3.65 creatinine 2.68 GFR 24 bicarb 19 BNP 5239, patient was noted to be hypertensive during stay in the emergency department with blood pressures in the 80s to 90s systolic, but did mildly improve with some gentle IV fluids. Patient denies any chest pain or shortness of breath at this time. Patient admitted for further evaluation and management of near syncope, low blood pressure. Allergies methocarbamol [From Robaxin] Allergy (Verified 07/24/16 23:32) Unknown simvastatin Adverse Reaction (Verified 07/24/16 23:32) Nausea/Vomiting statins Allergy (Uncoded 10/06/16 06:00) Unknown Home Medications: Montelukast [Singulair*] 10 mg PO DAILY 05/29/21 Rivaroxaban [Xarelto] 20 mg PO DAILY #30 tablet 05/30/21 Albuterol Sulfate [Proair Respiclick] 1 puff IH Q6H PRN 07/07/23 Cetirizine HCl 10 mg PO DAILY 07/07/23 Fluticasone [Flonase 50MCG Nasal [place]*] 2 sprays FATOUMATA DAILY 07/07/23 Furosemide [Lasix] 40 mg PO DAILY 07/07/23 Glimepiride 1 mg PO DAILY 07/07/23 Isosorbide Mononitrate 20 mg PO DAILY 07/07/23 Losartan Potassium [Cozaar*] 50 mg PO DAILY 07/07/23 Metoprolol Succinate [Toprol Xl*] 50 mg PO DAILY 07/07/23 Tamsulosin HCl 0.4 mg PO DAILY 07/07/23 Amiodarone HCl [Cordarone*] 200 mg PO BID #60 tab 07/18/23 Amlodipine [Norvasc*] 5 mg PO DAILY #30 tab 07/18/23 Benzonatate [Tessalon Perle*] 200 mg PO TID PRN #30 cap 07/18/23 Guaifen W/Codeine Syrup [ROBITUSSIN A-C Syrup] 10 ml PO Q12HP PRN #150 ml 07/18/23 Ipratropium Neb [Atrovent*] 0.5 mg NEB Q12HP PRN #60 amp 07/18/23 Isosorbide [place] (Bid) [Ismo 10 mg Tab*] 20 mg PO DAILY #60 tab 07/18/23 Levalbuterol [Xopenex] 1 amp NEB Q6H PRN #60 amp 07/18/23 Mometasone/Formoterol [Dulera 200 Mcg/5 Mcg Inhaler] 2 puff IH BID #1 inhaler 07/18/23 Nebulizer 1 each MC DAILY #1 ea 07/18/23 Nebulizer Accessories [Aeroneb Go] 1 each MC DAILY #1 ea 07/18/23 predniSONE [Deltasone] 20 mg PO BID #20 tab 07/18/23 - Past Medical/Surgical History Has patient received pneumonia vaccine in the past: Yes Diabetic: Yes -: ID -: DM-2 -: HTN -: Atrial fibrillation on chronic anticoagulation -: CHF-diastolic -: Sleep Apnea -: CAD -: TIA -: HLD -: basal cell carcinoma -: CKD -: COPD -: Cardiac catheterization with stent placement x 5 -: Back surgery -: Tonsillectomy -: Adenoids -: Nose surgery -: 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 moist/pink Neck: Supple, 2+ carotid pulse no bruit, No LAD Respiratory: Clear to auscultation bilaterally, Normal air movement Cardiovascular: Normal S1 S2, Irregular heart rate/rhythm (Afib rate controlled) Gastrointestinal: Normal bowel sounds, No tenderness Musculoskeletal: No tenderness Integumentary: No rashes Neurological: Normal speech, Normal strength at 5/5 x4 extr, Normal tone, Normal affect - Studies Laboratory Data (last 24 hrs) 07/29/23 07/29/23 08:53 08:53 WBC 8.10 Hgb 12.6 L Hct 36.6 L Plt Count 193 Sodium 141 Potassium 3.8 BUN 28 H Creatinine 2.68 H Glucose 154 H Magnesium 2.0 Total Bilirubin 0.6 AST 9 L ALT 19 Alkaline Phosphatase 87 Assessment and Plan - Plan Assessment: Near syncope, hypotension Chronic diastolic congestive heart failure Atrial fibrillation on chronic anticoagulation therapy CKD Diabetes mellitus type [id number] Hyperlipidemia CAD with previous stents COPD History of hypertension currently with hypotension Plan: Near syncope, hypotension Unclear etiology-patient denies any new medications recently Reports he possibly drank less water the past couple of days Blood pressure did respond to small IV fluid bolus in ED Continue gentle IV fluids for 1 L Patient does report intermittent low blood pressure readings in the 80s over 40s a few times a week at home Denies chest pain, shortness of breath, palpitations, stroke symptoms or headache CT head was negative for acute findings Will trend troponins, monitor on telemetry, give gentle IV fluids, obtain orthostatic vital signs Chronic diastolic congestive heart failure Hold diuretics given hypotension, appears euvolemic at this time/possibly on the dry side Will give gentle IV fluids x 1 L Atrial fibrillation on chronic anticoagulation therapy Continue amiodarone, Xarelto reduced dose to 50 mg daily CKD Similar to renal function at baseline Monitor daily Continue outpatient management Diabetes mellitus type [id number] ACHS Accu-Chek, sliding scale insulin Hyperlipidemia CAD with previous stents Continue home medications Hold Imdur currently given low blood pressures COPD As needed nebulizer treatments History of hypertension currently with hypotension Hold most antihypertensive agents given low blood pressures DVT PPX: Continue Xarelto-dose reduced to 15 mg given renal function Code status: Full Discharge Plan: Home Plan to discharge in: 24 Hours - Advance Directives Does patient have a Living Will: Yes Does patient have a Durable POA for Healthcare: No - Code Status/Comfort Care Code Status Assessed: Yes (Full code) Critical Care: No Time Spent Managing Pts Care (In Minutes): 70
[2023-07-29 14:36] VITALS: O2SAT 100
[2023-07-29] MEDS: INSULIN REGULAR (HUMAN) 100 UNIT/ML SQ SCH (16:30)
[2023-07-29] MEDS ORDERED: RIVAROXABAN 15 MG TABLET PO SCH (17:00)
--- NOTE | 2023-07-29 17:01 | EKG ---
Test Date: 2023-07-29 Test Time: 08:36:25 Intranet Specialist: KAREN MEASUREMENT RESULTS: Intervals: Rate: 65 MD: QRSD: 100 QT: 438 QTc: 455 [place]: P: MD: QRS: 122 T: -45 INTERPRETIVE STATEMENTS: Atrial fibrillation Right axis deviation Nonspecific T wave abnormality Abnormal ECG Compared to ECG 07/07/2023 04:41:40 Ventricular premature complex(es) no longer present Possible ischemia no longer present T-wave abnormality still present Electronically Signed On 07-29-23 16:59:45 CDT by Jet Rivera
[2023-07-29] MEDS: AMIODARONE HCL 200 MG TAB PO SCH (20:52)
[2023-07-30 03:31] LABS: PT Prothrombin Time 21.8 SECONDS (9.5-12.5); Protime INR 2.02
[2023-07-30 03:34] LABS: Absolute Basophils 0.1 K/uL (0-0.5); Absolute Eosinophils 0.4 K/uL (0-0.5); Absolute Lymphocytes (CBC) 1.6 K/uL (0.7-4.9); Absolute Monocytes 0.4 K/uL (0.1-1.3); Absolute Neutrophil 5.4 K/uL (1.8-8.0); Basophils % 0.7 % (0-1.3); Eosinophils % 5.1 % (0-4.4); Hematocrit 36.6 % (39.6-49.0); Hemoglobin 12.6 g/dL (13.6-17.9); Lymphocytes % 20.1 % (15.3-44.8); MCH 33.7 pg (27.0-35.0); MCHC 34.5 g/dL (32.0-36.0); MCV 97.7 fL (80-100); MPV 7.8 fL (7.6-11.3); Monocytes % 5.6 % (3.3-12.3); Neutrophils % 68.5 % (41.7-73.7); Nucleated Red Blood Cells % 0.1 % (0-0); Platelets 171 thou/uL (152-406); RBC Red Blood Cell Count 3.75 M/uL (4.33-5.43); Red Cell Distribution Width 13.8 % (12.1-15.2)
[2023-07-30 04:10] LABS: Thyroid Stimulating Hormone 3.66 uIU/mL (0.358-3.740)
[2023-07-30] MEDS: METOPROLOL XL 50 MG TAB PO SCH (08:23)
[2023-07-30] MEDS ORDERED: RIVAROXABAN 20 MG TABLET PO SCH (09:00)
--- NOTE | 2023-07-30 11:43 | P.DS ---
Admission Date: 07/29/23 Discharge Date: 07/30/23 Disposition: ROUTINE DISCHARGE Discharge Condition: GOOD Reason for Admission: Near syncope, hypotension Brief History of Present Illness: 73-year-old male with history of atrial fibrillation on chronic anticoagulation, chronic diastolic congestive heart failure, CAD with previous bypass, CKD diabetes mellitus type [id number], hypertension, hyperlipidemia, COPD presents emergency department with chief complaint of lightheadedness, near syncope. He reports he was sitting in his car when he began have numbness and tingling in all of his extremities as well as feeling lightheaded. EMS was called and patient was transferred to hospital for further valuation. He was evaluated in the emergency department and his labs are significant for hemoglobin 12.6 medic at 36.6 INR 3.65 creatinine 2.68 GFR 24 bicarb 19 BNP 5239, patient was noted to be hypertensive during stay in the emergency department with blood pressures in the 80s to 90s systolic, but did mildly impro ve with some gentle IV fluids. Patient denies any chest pain or shortness of breath at this time. Patient admitted for further evaluation and management of near syncope, low blood pressure. Hospital Course: Patient was admitted to the hospital for near syncope, low blood pressure which was in the 80s to 90s systolic. He was admitted under observation, troponins were trended and remained negative, he was monitored on telemetry and remained in rate controlled atrial fibrillation without significant arrhythmias noted. Overnight he was given gentle IV fluids and he had significant improvement in his blood pressure and symptoms. This morning his blood pressure is 129/74. His previous admission was reviewed and it is likely that he had been taking additional blood pressure medications/diuretics that had since been discontinued from his last admission. Upon review from previous admission patient should no longer be taking the following medications Stop the following medications: Losartan 50 mg by mouth twice daily Nifedipine 60 mg by mouth daily Lasix 40 mg by mouth daily Continue taking the following medications: Amiodarone 200 mg by mouth twice daily Metoprolol succinate 50 mg by mouth once daily Amlodipine 5 mg by mouth daily Isosorbide mononitrate 10 mg by mouth daily Xarelto dose to be adjusted from 20 mg daily to 15 mg daily given renal funct ion. Patient has an appointment with his orthopaedic surgeon tomorrow 07/30, recommend he keep his appointment and also follows up with his primary care doctor. Blood pressure medication and diuretics may require further adjustment after discharge from the hospital. Please also follow-up with your aircraft magneto mechanic. Last echocardiogram performed 07/08/2023 1. MILDLY DEPRESSED LEFT VENTRICULAR EJECTION FRACTION 40-45% 2. MILD GLOBAL HYPOKINESIS 3. LEFT ATRIAL ENLARGEMENT 4. CALCIFIED AORTIC VALVE WITH LIKELY AORTIC STENOSIS (SEVERITY NEEDS FURTHER EVALUATION) 5. MILD MITRAL REGURGITATION Creatinine at discharge 2.44, GFR 27 Assessment: Near syncope, hypotension Chronic diastolic congestive heart failure Atrial fibrillation on chronic anticoagulation therapy CKD Diabetes mellitus type [id number] Hyperlipidemia CAD with previous stents COPD History of hypertension currently with hypotension Vital Signs/Physical Exam: Temp Pulse Resp BP Pulse Ox 97.9 F 81 18 131/75 97 07/30/23 08:00 07/30/23 08:23 07/30/23 08:00 07/30/23 08:23 07/30/23 08:00 General: Alert, In no apparent distress, Oriented x3 HEENT: Atraumatic, PERRLA Neck: Supple, JVD not distended Respiratory: Clear to auscultation bilaterally, Normal air movement Cardiovascular: Regular rate/rhythm, Normal S1 S2 Gastrointestinal: Normal bowel sounds, No tenderness Musculoskeletal: No tenderness Integumentary: No rashes Neurological: Normal speech, Normal tone, Normal affect Laboratory Data at Discharge: WBC 7.90 thou/uL (4.3-10.9) 07/30/23 03:07 Hgb 12.6 g/dL (13.6-17.9) L 07/30/23 03:07 Hct 36.6 % (39.6-49.0) L 07/30/23 03:07 Plt Count 171 thou/uL (152-406) 07/30/23 03:07 PT 21.8 SECONDS (9.5-12.5) H 07/30/23 03:07 INR 2.02 07/30/23 03:07 Sodium 141 mEq/L (136-145) 07/30/23 03:07 Potassium 4.0 mEq/L (3.5-5.1) 07/30/23 03:07 BUN 26 mg/dL (7-18) H 07/30/23 03:07 Creatinine 2.44 mg/dL (0.70-1.30) H 07/30/23 03:07 Glucose 64 mg/dL (74-106) L 07/30/23 03:07 Magnesium 2.0 mg/dL (1.6-2.4) 07/29/23 08:53 Total Bilirubin 0.6 mg/dL (0.2-1.0) 07/29/23 08:53 AST 9 U/L (15-37) L 07/29/23 08:53 ALT 19 U/L (16-61) 07/29/23 08:53 Alkaline Phosphatase 87 U/L (45-117) 07/29/23 08:53 Home Medications: Montelukast [Singulair*] 10 mg PO DAILY 05/29/21 Albuterol Sulfate [Proair Respiclick] 1 puff IH Q6H PRN 07/07/23 Cetirizine HCl 10 mg PO DAILY 07/07/23 Fluticasone [Flonase 50MCG Nasal [place]*] 2 sprays FAT[place]MATA DAILY 07/07/23 Glimepiride 1 mg PO DAILY 07/07/23 Metoprolol Succinate [Toprol Xl*] 50 mg PO DAILY 07/07/23 Tamsulosin HCl 0.4 mg PO DAILY 07/07/23 Amiodarone HCl [Cordarone*] 200 mg PO BID #60 tab 07/18/23 Amlodipine [Norvasc*] 5 mg PO DAILY #30 tab 07/18/23 Benzonatate [Tessalon [place]*] 200 mg PO TID PRN #30 cap 07/18/23 Guaifen W/Codeine Syrup [ROBITUSSIN A-C Syrup*] 10 ml PO Q12HP PRN #150 ml 07/18/23 Ipratropium Neb [Atrovent*] 0.5 mg NEB Q12HP PRN #60 amp 07/18/23 Isosorbide [place] (Bid) [Ismo 10 mg Tab*] 20 mg PO DAILY #60 tab 07/18/23 Levalbuterol [Xopenex*] 1 amp NEB Q6H PRN #60 amp 07/18/23 Mometasone/Formoterol [Dulera 200 Mcg/5 Mcg Inhaler] 2 puff IH BID #1 inhaler 07/18/23 Nebulizer 1 each MC DAILY #1 ea 07/18/23 Nebulizer Accessories [Aeroneb Go] 1 each MC DAILY #1 ea 07/18/23 Rivaroxaban [Xarelto] 15 mg PO DAILY #30 tablet 07/30/23 New Medications: Rivaroxaban [Xarelto] 15 mg PO DAILY #30 tablet Physician Discharge Instructions: Patient was admitted to the hospital for near syncope, low blood pressure which was in the 80s to 90s systolic. He was admitted under observation, troponins were trended and remained negative, he was monitored on telemetry and remained in rate controlled atrial fibrillation without significant arrhythmias noted. Overnight he was given gentle IV fluids and he had significant improvement in his blood pressure and symptoms. This morning his blood pressure is 129/74. His previous admission was reviewed and it is likely that he had been taking additional blood pressure medications/diuretics that had since been discontinued from his last admission. Upon review from previous admission patient should no longer be taking the following medications Stop the following medications: Losartan 50 mg by mouth twice daily Nifedipine 60 mg by mouth daily Lasix 40 mg by mouth daily Continue taking the following medications: Amiodarone 200 mg by mouth twice daily Metoprolol succinate 50 mg by mouth once daily Amlodipine 5 mg by mouth daily Isosorbide mononitrate 10 mg by mouth daily Xarelto dose to be adjusted from 20 mg daily to 15 mg daily given renal function. Patient has an appointment with his orthopaedic surgeon tomorrow 07/30, recommend he keep his appointment and also follows up with his primary care doctor. Blood pressure medication and diuretics may require further adjustment after discharge from the hospital. Please also follow-up with your aircraft magneto mechanic. Last echocardiogram performed 07/08/2023 1. MILDLY DEPRESSED LEFT VENTRICULAR EJECTION FRACTION 40-45% 2. MILD GLOBAL HYPOKINESIS 3. LEFT ATRIAL ENLARGEMENT 4. CALCIFIED AORTIC VALVE WITH LIKELY AORTIC STENOSIS (SEVERITY NEEDS FURTHER EVALUATION) 5. MILD MITRAL REGURGITATION Creatinine at discharge 2.44, GFR 27 Diet: Renal Activity: Fall precautions Followup: NONE,NONE [Primary Care Provider] - 2-3 Days Jet Rivera MD [ACTIVE - CAN ADMIT] - 1-2 Weeks Time spent managing pt's care (in minutes): 35
[2023-07-30 12:16] VITALS: BP 139/74; TEMP 97.7
[2023-07-30] MEDS ORDERED: RIVAROXABAN 15 MG TABLET PO SCH (17:00)
== END 2023-07-30 12:20 | disposition home or self-care (01) ==
LOC: ER 08:24 → ERHOLD 12:04 → 2ND 13:28
PROVIDERS: ADMIT Hospitalist; ATTEND Hospitalist
DX: R55 Syncope and collapse (principal); I95.9 Hypotension, unspecified; I48.11 Longstanding persistent atrial fibrillation; I25.10 Atherosclerotic heart disease of native coronary artery without angina pectoris; I50.32 Chronic diastolic (congestive) heart failure; I12.9 Hypertensive chronic kidney disease with stage 1 through stage 4 chronic kidney disease, or unspecified chronic kidney disease; E11.22 Type 2 diabetes mellitus with diabetic chronic kidney disease; N18.9 Chronic kidney disease, unspecified; Z79.01 Long term (current) use of anticoagulants; D63.1 Anemia in chronic kidney disease; E78.5 Hyperlipidemia, unspecified; J44.9 Chronic obstructive pulmonary disease, unspecified
CPT/HCPCS: 93005; 85025 ×2; 80048 ×2; 36415; 83735; 85610 ×2; 82947 ×4; 80076; 84443; 84484 ×3; 84439; 83880; 70450; 71045; J7040; J7030; 96360; 96361; 99285; G0378

== ENCOUNTER 2024-03-24 16:41 | Emergency (ER) | payer OTHER ==
--- OUTSIDE RECORDS SUMMARY | 2024-03-24 16:47 | XMS REPORT | Continuity of Care Document ---
Author Name Unknown Address [address] [facility] [address] [place] [address] [facility] Address [address] [facility] [address] [place] [address] Care Team Providers Care Microbiology Supervisor Name Role Phone [phone] Primary Care Physician Unavailab SHAHBAZ Perez Attending Clinician Unavailable Belkys Granger Attending Clinician Unavailable Alireza Gomez Attending Clinician Unavaila SURENDRA Barton Attending Clinician Unavailable DERICK PLASCENCIA Attending Clinician Unavail able MAULIK MENDOZA Attending Clinician Unavailable SHAHBAZ STAFFROD Attending Clinician Unavailable Eagle Cox APRN Attending Clinician [phone] Trevor Salinas APRN Attending Clinician [phone] Aguilar Valenzuela MD Attending Clinician [phone] AAKASH FERRELL Attending Clinician JESSIKA Manning Attending Clinician Laura Ferrell MD, Aakash Attending Clinician [phone] Ramon NEWMAN, aDnay Attending Clinician Kaylyn Hanley RN, Magda Attending Clinician Tameka Rodríguez MA Attending Clinician Danny Hamm MD, Prakash Attending Clinician [phone] [facility] Admitting Clinician Unavailable Payers Payer Name Policy Type Policy Number Effective Date Expirati on Date Source [employer] HMO [id number] 2020 00:00:00 2020 00:00:00 Problems Condition Name Condition Details Condition Category Status Onset Date Resolution Date Last Treatment Date Treating Clinician Comments Source Abdominal aortic aneurysm (AAA) without rupture Abdominal aortic aneurysm (AAA) without rupture Disease Active 2023-05 0 00:00: 00 [facility] Chronic obstructiv e pulmonary disease with acute exacerbati on Chronic obstructiv e pulmonary disease with acute exacerbati on Disease Active 2023-05 0- 00:00: 00 [facility] Acute renal failure Acute renal failure Disease Active 2023-05 0 00:00: 00 [facility] Benign localized prostatic hyperplasi a with lower urinary tract symptoms (LUTS) Benign localized prostatic hyperplasi a with lower urinary tract symptoms (LUTS) Disease Active 2023-05 0- 00:00: 00 [facility] Congestive heart failure Congestive heart failure Disease Active 2023-05 0-08 00:00: 00 [facility] Diverticul itis Diverticul itis Disease Active 2023-05 0- 00:00: 00 [facility] continuous churn buttermaker (current) use of antithromb otics/anti platelets 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 churn buttermaker (current) use of antithromb otics/anti platelets Disease Active 2023-05 0- 00:00: 00 [facility] Non-ST elevation (NSTEMI) myocardial infarction Non-ST elevation (NSTEMI) myocardial infarction Disease Active 2023-05 0-08 00:00: 00 [facility] Transient ischemic attack Transient ischemic attack Disease Active 2023-05 0-08 00:00: 00 [facility] 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) 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) Disease Active 2023-05 0-04 00:00: 00 [facility] Coronary artery disease involving [place] coronary artery of [place] heart without angina pectoris Coronary artery disease involving [place] coronary artery of [place] heart without angina pectoris Disease Active 2023-05 0- 00:00: 00 [facility] Chronic systolic heart failure Chronic systolic heart failure Disease Active 2023-05 0-04 00:00: 00 [facility] Severe aortic stenosis Severe aortic stenosis Disease Active 12-11 00:00: 00 [facility] CKD (chronic kidney disease) stage 4, GFR 15-29 ml/min CKD (chronic kidney disease) stage 4, GFR 15-29 ml/min Disease Active 12-11 00:00: 00 [facility] Nonrheumat ic aortic (valve) stenosis Nonrheumat ic aortic (valve) stenosis Disease Active 12-11 00:00: 00 [facility] 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 Disease Active 08-17 00:00: 00 [facility] Basal cell carcinoma of face Basal cell carcinoma of face Disease Active 2017-05 00:00: 00 [facility] Hypertensi on Hypertensi on Disease Active 10-23 00:00: 00 [facility] PNEUMOTHOR AX PNEUMOTHOR AX Active 10/06/2016 [facility] Diagnosis Active 10-06 00:00: 00 2016-10-15 22:01:00 Yolis Young UNK UNK Active 01/03/2016 [facility] Active 01-02 00:00: 00 2016-01-25 11:14:00 Yolis Young Hyperlipid emia Hyperlipid emia Disease Active 01-02 00:00: 00 [facility] INFRARENAL AORTIC ANEURYSM INFRARENAL AORTIC ANEURYSM Active 11/06/2015 [facility] Diagnosis Active 11-05 00:00: 00 2015-11-15 20:54:00 Yolis Young ACS (acute coronary syndrome) ACS (acute coronary syndrome) Disease Active 07-06 00:00: 00 [facility] TIA, AF, IC ATHEROSCLE ROSIS TIA, AF, IC ATHEROSCLE ROSIS Active 06/09/2015 [facility] Diagnosis Active 06-09 00:00: 00 2015-06-15 09:30:00 Yolis Young TIA TIA Active 06/09/2015 [facility] Diagnosis Active 06-09 00:00: 00 2015-06-09 18:53:00 Yolis Young Atrial fibrillati on with RVR Atrial fibrillati on with RVR Disease Active 05-22 00:00: 00 [facility] Diabetes type 2, controlled Diabetes type 2, controlled Disease Active 05-22 00:00: 00 [facility] ACS R/O ACS R/O Active 01/14/2012 [facility] Diagnosis Active 01-13 00:00: 00 2012-01-14 14:46:00 Yolis Young CHEST PAIN CHEST PAIN Active 01/14/2012 [facility] Diagnosis Active 01-13 00:00: 00 2012-01-14 14:45:00 Yolis Young [id number] Orchitis, left Problem Active [facility] [id number] Upper respirator y tract infection, unspecifie d type Problem Active [facility] [id number] Cough Problem Active [facility] Atrial fibrillati on (disorder) Atrial fibrillati on (disorder) Resolved Problem 10/16/2016 [facility]OC [place] Problem Resolve d 2016-10-16 00:08:43 Yolis Young Smoker (finding) Smoker (finding) Resolved Problem 10/16/2016 [facility] OPIMihai [place] Problem Resolve d 2016-10-16 00:08:43 Yolis Young Tinnitus (finding) Tinnitus (finding) Resolved Problem 10/16/2016 [facility] OPID [place] Problem Resolve d 2016-10-16 00:08:43 Yolis Yonug Chest pain Chest pain Active Problem 01/17/2012 [facility] Problem Active 2012-01-17 09:08:08 Yolis Young Atheroscle rosis of coronary artery (disorder) Atheroscle rosis of coronary artery (disorder) Active Problem 10/16/2016 [facility] [place] Problem Active 2016-10-16 00:08:43 Yolis Young Chest pain (finding) Chest pain (finding) Active Problem 10/16/2016 [facility]OC [place] Problem Active 2016-10-16 00:08:43 Yolis Young Diabetes mellitus (disorder) Diabetes mellitus (disorder) Active Problem 10/16/2016 [facility] QUOC [place] Problem Active 2016-10-16 00:08:43 Yolis Young Hearing loss (finding) Hearing loss (finding) Active Problem 10/16/2016 [facility] QUOC [place] Problem Active 2016-10-16 00:08:43 Yolis Young Serum creatinine raised (finding) Serum creatinine raised (finding) Active Problem 10/16/2016 [facility] [place] Problem Active 2016-10-16 00:08:43 Yolis Young Sleep apnea (finding) Sleep apnea (finding) Active Problem 10/16/2016 [facility] [place] Problem Active 2016-10-16 00:08:43 Yolis Young CORONARY ARTERY ANOMALY CORONARY ARTERY ANOMALY Active [facility] Diagnosis Active 2012-01-14 14:46:00 Yolis Young TRANSIENT CEREBRAL ISCHEMIC ATTACK, UNSP TRANSIENT CEREBRAL ISCHEMIC ATTACK, UNSP Active [facility] Diagnosis Active 2015-06-15 09:30:00 Yolis Young ILLNESS, UNSPECIFIE D ILLNESS, UNSPECIFIE D Active [facility] Diagnosis Active 2015-11-15 20:54:00 Yolis Young ABDOMINAL AORTIC ANEURYSM, WITHOUT RUPTU ABDOMINAL AORTIC ANEURYSM, WITHOUT RUPTU Active [facility] Diagnosis Active 2016-01-25 11:14:00 Yolis Young Allergies, Adverse Reactions, Alerts Allergy Name Allergy Type Status Severity Reaction(s) Onset Date Inactive Date Treating Clinician Comments Source Statins Allergy to substanc e Active 08-09 00:00: 00 [facility] Statins Allergy to substanc e Active Unknown 07-24 00:00: 00 Other Reaction( s): Nausea/Vo miting [facility] Robaxin Robaxin Active Yolis Young statins statins Active Yolis Young Social History Social Habit Start Date Stop Date Quantity Comments Source Sex Assigned At [facility] [place] Sexual orientation [facility] History of tobacco use Cigarette Smoker [facility] History of Social function 2024-02-18 00:00:00 2024-02-18 00:00:00 [facility] Alcoholic beverage intake 2024-02-18 00:00:00 2024-02-18 00:00:00 Ex-drinker (finding) [facility] Tobacco use and exposure 2023-04-24 00:00:00 2023-04-24 00:00:00 Smokeless tobacco non-user [facility] Alcohol Comment 2023-04-24 00:00:00 2023-04-24 00:00:00 quitted 15 years ago [facility] Exposure to SARS-CoV-2 (event) 2021-11-09 00:00:00 2021-11-19 11:01:00 Not sure [facility] Smoking Status Start Date Stop Date Source Smokes tobacco daily 2023-04-24 00:00:00 [facility] Tobacco smoking consumption unknown [facility] Social History 2016-10-06 23:40:51 Roberth Stanton Medications Ordered Medication Name Filled Medication Name Start Date Stop Date Current Medication? Ordering Clinician Indication Dosage Frequency Signature (SIG) Comments Components Source Mometasone Furo-Formot madeline Fum (Dulera) 50-5 MCG/ACT aerosol 2023-05 09:46: 56 Yes Inhale. [facility] nitroglycer in (Nitrostat) 0.4 MG SL tablet 2023-05 0 00:00: [id number] 1 tablet (0.4 mg total) under the tongue every 5 (five) minutes if needed for chest pain. [facility] isosorbide mononitrate 20 MG tablet 2023-05 0 00:00: 00 02-09 00:00 :00 No [id number] 20mg QD Take 1 tablet (20 mg total) by mouth 1 (one) time each day. [facility] empaglifloz in (Jardiance) 10 MG 2023-05 0 00:00: 00 02-09 00:00 :00 No [id number] 10mg QD Take 1 tablet (10 mg total) by mouth 1 (one) time each day. [facility] Aspirin Low Dose 81 MG EC tablet 9- 00:00: 00 Yes 81mg QD Take 81 mg by mouth 1 (one) time each day. [facility] amiodarone (Pacerone) 200 MG tablet 9-28 00:00: 00 Yes 200mg QD Take 200 mg by mouth 1 (one) time each day. Taking 1/2 daily [facility] cetirizine (ZyrTEC) 10 MG tablet 8-30 00:00: 00 Yes 10mg QD Take 10 mg by mouth 1 (one) time each day. [facility] amLODIPine (Norvasc) 10 MG tablet -19 00:00: 00 Yes 10mg QD Take 10 mg by mouth 1 (one) time each day. [facility] Fluticasone -Umeclidin- Vilant (Trelegy Ellipta) 100-62.5-25 MCG/ACT aerosol powder 09-24 10:55: 16 Yes 944 1{puff} QD Inhale 1 puff 1 (one) time each day. [facility] Repatha SureClick 140 MG/ML solution auto-inject or 09-24 00:00: 00 Yes [id number] 140mg Q14D Inject 140 mg under the skin every 14 (fourteen) days. [facility] Repatha SureClick 140 MG/ML solution auto-inject or -15 00:00: 00 09-24 00:00 :00 No 140mg Q14D Inject 140 mg under the skin every 14 (fourteen) days. [facility] finasteride (Proscar) 5 MG tablet 05 00:00: 00 Yes 1 (one) time each day at the same time. [facility] ciprofloxac in (Cipro) 500 MG tablet 07-30 12:02: 23 07-30 00:00 :00 No Q.5D Take by mouth 2 (two) times a day. [facility] nitroglycer in (Nitrostat) 0.4 MG SL tablet 07-30 12:00: [address] 0.4 mg under the tongue every 5 (five) minutes if needed for chest pain. [facility] levalbutero l (Xopenex) 1.25 MG/3ML nebulizer solution 07-21 00:00: 00 02-09 00:00 :00 No [facility] nitroglycer in (Nitrostat) 0.4 MG SL tablet 2022-05 11:14: 15 Yes [facility] ciprofloxac in (Cipro) 500 MG tablet 2022-05 11:14: 15 Yes Q.5D Take by mouth 2 (two) times a day. [facility] metoprolol succinate XL (Toprol-XL) 50 MG 24 hr tablet 2022-05 00:00: 00 Yes [id number] 50mg QD Take 1 tablet (50 mg total) by mouth 1 (one) time each day. [facility] cetirizine (ZyrTEC) 10 MG tablet 2022-05 00:00: 00 Yes 10mg QD Take 10 mg by mouth 1 (one) time each day. [facility] fluticasone (Flonase) 50 MCG/ACT nasal spray 2022-05 00:00: 00 Yes 1{spray } QD 1 spray 1 (one) time each day. [facility] albuterol 108 (90 Base) MCG/ACT inhaler 2022-05 00:00: 00 02-09 00:00 :00 No 1{puff} Q6H 1 puff every 6 (six) hours if needed. [facility] metoprolol succinate XL (Toprol-XL) 50 MG 24 hr tablet 2022-05 00:00: 00 04-24 00:00 :00 No 50mg Q.5D Take 50 mg by mouth in the morning and 50 mg before bedtime. [facility] nitroglycer in (Nitrostat) 0.4 MG SL tablet 01-13 16:25: 28 Yes [facility] ciprofloxac in (Cipro) 500 MG tablet 01-13 16:19: 12 Yes Q.5D Take by mouth 2 (two) times a day. [facility] oseltamivir (Tamiflu) 75 MG capsule 5-04 00:00: 00 09-11 04:59 :00 No 75mg Q12H Take 75 mg by mouth every 12 (twelve) hours. [facility] mupirocin (Bactroban) 2 % ointment 3-30 00:00: 00 Yes 1{appli cation} Q.[id number] 3D Apply 1 applicatio n topically in the morning and 1 applicatio n at noon and 1 applicatio n in the evening. APPLY TO AFFECTED AREA 3 TIMES A DAY FOR 10 DAYS. [facility] losartan (Cozaar) 50 MG tablet 9-12 00:00: 00 02-09 00:00 :00 No [id number] 50mg Q.5D Take 1 tablet (50 mg total) by mouth in the morning and 1 tablet (50 mg total) in the evening. [facility] nitroglycer in (Nitrostat) 0.4 MG SL tablet 11-19 11:09: 41 Yes [facility] ciprofloxac in (Cipro) 500 MG tablet 11-19 11:09: 41 Yes Q.5D Take by mouth 2 (two) times a day. [facility] losartan (Cozaar) 100 MG tablet 09-10 00:00: 00 Yes [id number] 100mg QD Take 1 tablet (100 mg total) by mouth 1 (one) time each day. [facility] technetium Tc-99m sestamibi (Cardiolite ) radio-isoto pe injection 18-45 millicurie 08-23 15:58: [address] [place] [address] technetium Tc-99m sestamibi (Cardiolite ) radio-isoto pe injection 18-45 millicurie 08-23 15:58: [address] [place] [address] technetium Tc-99m sestamibi (Cardiolite ) radio-isoto pe injection 8-18 millicurie 08-21 19:51: [address] [place] [address] technetium Tc-99m sestamibi (Cardiolite ) radio-isoto pe injection 8-18 millicurie 19 19:51: [address] [place] [address] ciprofloxac in (Cipro) 500 MG tablet 08-09 16:25: 32 Yes Q.5D Take by mouth 2 (two) times a day. [facility] nitroglycer in (Nitrostat) 0.4 MG SL tablet 08-09 16:25: 32 02-04 00:00 :[address] 0.4 mg under the tongue every 5 (five) minutes if needed for chest pain. [facility] furosemide (Lasix) 40 MG tablet 08-09 00:00: 00 Yes [id number] 40mg QD Take 1 tablet (40 mg total) by mouth 1 (one) time each day. [facility] losartan (Cozaar) 50 MG tablet 08-09 00:00: 00 09-10 00:00 :00 No [id number] 50mg QD Take 1 tablet (50 mg total) by mouth 1 (one) time each day. [facility] tamsulosin (Flomax) 0.4 MG 24 hr capsule 07-27 00:00: 00 Yes .4mg QD Take 0.4 mg by mouth 1 (one) time each day. TAKE 1 CAPSULE BY MOUTH EVERY DAY FOR 30 DAYS [facility] metoprolol tartrate (Lopressor) 50 MG tablet 07-08 00:00: 00 04-24 00:00 :00 No 50mg Q.5D Take 50 mg by mouth 2 (two) times a day. [facility] montelukast (Singulair) 10 MG tablet 05-31 00:00: 00 Yes 10mg Take 10 mg by mouth 1 (one) time each day in the morning. [facility] Xarelto 20 MG tablet 05-31 00:00: 00 Yes 20mg Take 20 mg by mouth every night. [facility] NIFEdipine XL (Procardia XL) 60 MG 24 hr tablet 05-31 00:00: 00 02-05 00:00 :00 No 60mg Take 60 mg by mouth 1 (one) time each day if needed. [facility] isosorbide mononitrate 20 MG tablet 05-31 00:00: 00 02-04 00:00 :00 No 20mg Take 20 mg by mouth 1 (one) time each day in the morning. [facility] glimepiride (Amaryl) 1 MG tablet 05-26 00:00: 00 Yes 1mg Take 1 mg by mouth 1 (one) time each day in the morning. [facility] Kenalog (Triamcinol one) Kenalog (Triamcinol one) 2017-05 00:00: 00 No 40mg [facility] Cardura 10-14 02:00: 00 No Notes: (Same as: Milli) Yolis Young 24 HR Nifedipine 60 MG Extended Release Tablet 10-13 18:02: 00 Yes 60 mg = 1 tab, PO, Daily, .., 0 Refill(s) Yolis Young tramadol hydrochlori de 50 MG Oral Tablet 10-13 17:33: 00 Yes 50 mg = 1 tab, PO, Q6H, # 30 tab, 0 Refill(s) Yolis Young gabapentin 300 MG Oral Capsule 10-13 17:33: 00 Yes 300 mg = 1 cap, PO, Q12H, # 60 cap, 0 Refill(s) Yolis Young insulin isophane (NPH) 100 units/mL human recombinant subcutaneou s suspension 10-13 17:33: 00 Yes 9 unit, SUB-Q, Q8H, 0 Refill(s) Yolis Young Doxazosin 10-12 05:48: 00 No Notes: (Same as: Milli) Yolis Young Robitussin- DM 10-11 23:00: 00 No Notes: (dextromet horphan-gu aifenesin 10-100mg/5 ml 10 ml oral SOLN ud) (Same as: Robitussin DM) Yolis Young Albuterol 1 MG/ML Inhalant Solution 10-11 22:22: 00 No Notes: SEE RT DOCUMENTAT ION (Same as: Aleks) Yolis Young Robitussin Maximum Strength 10-11 22:22: 00 No 30 mg, Route: PO, Q6H, Dosing Weight 105.9, kg, Priority: NOW, Start date: 10/11/16 17:22:00 CDT, Duration: 30 day, Stop date: 11/10/16 12:00:00 CDT Yolis Young sennosides, RESIDENTIAL 10-11 22:00: 00 No Notes: (Same as: Ashlie) Yolis Young Magnesium Oxide 10-11 21:21: 00 No 800 mg, Route: PO, PRN, Dosing Weight 105.9, kg, PRN Abnormal Lab Result, For NON-ICU Patients Only., Start date: 10/11/16 16:21:00 CDT, Duration: 30 day, Stop date: 11/10/16 16:20:00 CDT Memvanessa l Hector Magnesium Sulfate 10-11 21:21: 00 No 1 gm, Route: IVPB, PRN, Dosing Weight 105.9, kg, PRN Abnormal Lab Result, For NON-ICU Patients Only., Start date: 10/11/16 16:21:00 CDT, Duration: 30 day, Stop date: 11/10/16 16:20:00 CDT Memoria l Hector sodium phosphate 10-11 21:21: 00 No 30 mmol, Route: IVPB, PRN, Dosing Weight 105.9, kg, PRN Abnormal Lab Result, For NON-ICU Patients Only., Start date: 10/11/16:21:00 CDT, Duration: 30 day, Stop date: 11/10/16 16:20:00 CDT Memvanessa l Hector Calcium Gluconate 10-11 21:21: 00 No 2 gm, Route: IVPB, PRN, Dosing Weight 105.9, kg, PRN Abnormal Lab Result, For NON-ICU Patients Only., Start date: 10/11/16 16:21:00 CDT, Duration: 30 day, Stop date: 11/10/16 16:20:00 CDT Memvanessa l Ehctor potassium phosphate 10-11 21:21: 00 No 30 mmol, Route: IVPB, PRN, Dosing Weight 105.9, kg, PRN Abnormal Lab Result, For NON-ICU Patients Only., Start date: 10/11/16 16:21:00 CDT, Duration: 30 day, Stop date: 11/10/16 16:20:00 CDT Memoria l Hector potassium phosphate-s odium phosphate 250 mg-280 mg-160 mg oral powder for reconstitut ion 10-11 21:21: 00 No 2 pkt, Route: PO, Dosing Weight 105.9, kg, PRN, PRN Abnormal Lab Result, For NON-ICU Patients Only, Start date: 10/11/16 16:21:00 CDT, Duration: 30 day, Stop date: 11/10/16 16:20:00 CDT Morenovanessa jennifer Swiss potassium chloride 10-11 21:21: 00 No 10 mEq, Route: IVPB, PRN, Dosing Weight 105.9, kg, PRN Abnormal Lab Result, For NON-ICU Patients Only, Start date: 10/11/16 16:21:00 CDT, Duration: 30 day, Stop date: 11/10/16 16:20:00 CDT Morenoavnessa jennifer Young Isolyte S (PH 7.4) 500 mL 500 mL 10-11 20:30: 00 No Notes: (Same as: Isolyte S PH7.4) Yolis Young Docusate 10-11 14:26: 00 No Notes: (Same as: Colace) (Do Not Crush) Yolis Young tramadol hydrochlori de 50 MG Oral Tablet 10-11 05:00: 00 No Notes: Not to exceed 400mg/day. (Same As: Ultram) Yolis Young gabapentin 10-11 02:00: 00 No Notes: (Same as: Neurontin) Yolis Young Acetaminoph en 300 MG / Codeine Phosphate 30 MG Oral Tablet [Tylenol with Codeine #3] 10-10 18:57: 00 No Notes: Do not exceed 4gm/day of acetaminop hen. (Same as: Tylenol with Codeine # 3) Yolis Young Sodium Chloride 0.154 MEQ/ML Injectable Solution 10-10 16:15: 00 No 250 mL, 250 ml/hr, Infuse Over: 1 hr, Route: IV, 250, Drug form: INJ, ONCE, Priority: STAT, Dosing Weight 105.9 kg, Start date: 10/10/16 11:15:00 CDT, Duration: 1 doses or times, Stop date: 10/10/16 11:15:00 CDT Yolis Young gabapentin 10-09 21:00: 00 No Notes: (Same as: Neurontin) Yolis Young Hydromorpho ne 10-09 17:00: 00 No Notes: (Same as: Dilaudid) conc = 0.5 mg/ml Hydromorph one [employer] Dose: ;Delay: ;Basal: Memoria jennifer Young Naloxone 10-09 16:42: 00 No Notes: Same as Narcan Memoria jennifer Young neostigmine (MATTYS) 10-09 16:32: 00 No Route: IV, Drug form: INJ, ONCE, Stop date: 10/09/16 11:32:00 CDT Memoria jennifer Young glycopyrrol ate (MATTYS) 10-09 16:32: 00 No Route: IV, Drug form: INJ, ONCE, Stop date: 10/09/16 11:32:00 CDT Memoria jennifer Young Ondansetron 10-09 16:31: 00 No Notes: (Same as: Ankita) MEDICATION WASTE Product Size: 4 mg Product Wasted: _0__ mg Memvanessa Young Naloxone 10-09 16:31: 00 No Notes: Same as Narcan Memoria jennifer Hector Flumazenil 10-09 16:31: 00 No Notes: (Same as: Romazicon) Memoria jennifer Young Fentanyl 10-09 16:31: 00 No Notes: (Same as: Sublimaze) Preservati ve free. Memoria jennifer Young ondansetron (MATTYS) 10-09 16:03: 00 No Route: IV, Drug form: INJ, ONCE, Stop date: 10/09/16 11:03:00 CDT Memoria jennifer Young acetaminoph en (ANES) (MATTYS) 10-09 15:29: 00 No Route: IV, Drug form: INJ, Start date: 10/09/16 10:29:00 CDT, Stop date: 10/09/16 11:29:00 CDT Memoria jennifer Young norepinephr ine (MATTYS) 10-09 14:28: 00 No Route: IV, Drug form: INJ, ONCE, Stop date: 10/09/16 9:28:00 CDT Memoria jennifer JacksonSwiss cisatracuri um (MATTYS) 10-09 14:18: 00 No Route: IV, Drug form: INJ, ONCE, Stop date: 10/09/16 9:18:00 CDT Memoria l Swiss midazolam ([facility]) 10-09 14:13: 00 No Route: IV, Drug form: SOLN, ONCE, Stop date: 10/09/16 9:13:00 CDT Yolis Young lidocaine (ANES) 10-09 14:13: 00 No Route: IV, Drug form: INJ, ONCE, Stop date: 10/09/16 9:13:00 CDT Yolis Young propofol ([facility]) 10-09 14:13: 00 No Route: IV, Drug form: INJ, ONCE, Stop date: 10/09/16 9:13:00 CDT Yolis Young ceFAZolin ([facility]) 10-09 14:08: 00 No Route: IV, Drug form: INJ, ONCE, Stop date: 10/09/16 9:08:00 CDT Yolis Young fentaNYL ([facility]) 10-09 14:08: 00 No Route: IV, Drug form: INJ, ONCE, Stop date: 10/09/16 9:08:00 CDT Yolis Young Exparel 10-09 14:00: 00 No Notes: (Same as: Exparel) NOT FOR IV use Postoperat gwen [...] (total dose = 30 mL [266 mg]) Yolis Young Isolyte S (PH 7.4) 1000 mL ([facility]) 10-09 13:10: 00 No Route: IV, Total Volume: 1,000, Start date: 10/09/16 8:10:00 CDT, Stop date: 10/09/16 9:10:00 CDT Yolis Young Simethicone 10-09 04:50: 00 No Notes: (Same as: Mylicon, Phazyme, Genasyme) Yolis Young GI cocktail 10-09 04:49: 00 No Notes: G.I. Cocktail = antacid with simethicon e 22.5 mL - lidocaine viscous 7.5 mL Yolis Young sodium chloride 0.9% 1000 ml INJ 1,000 mL 10-09 04:32: 00 No 1,000 mL, Rate: 75 ml/hr, Infuse over: 13.3 hr, Route: IV, Dosing Weight 105.9 kg, Total Volume: 1,000, Start date: 10/08/16 23:32:00 CDT, Duration: 30 day, Stop date: 11/07/16 23:31:00 CDT Yolis Young Zofran 10-09 01:48: 00 No Notes: (Same as: Zofrlaure) MEDICATION WASTE Product Size: 4 mg Product Wasted: 0 mg Yolis Young Tums 10-09 01:37: 00 No Notes: (Same As: Tums) Calcium Carbonate 500 mg = 200 mg elemental calcium Dose = mg calcium carbonate ( mg elemental calcium) Yolis Young heparin 10-08 21:00: 00 No Notes: porcine heparin Yolis Young 24 HR Nifedipine 60 MG Extended Release Tablet 10-08 04:38: 00 No Notes: (Same as: Adalat CC, Procardia XL) Give on empty stomach. Take 1 hour before or 2 hours after meal; "Avoid grapefruit and grapefruit juice". Do not crush Yolis Young metoprolol tartrate 10-08 04:37: 00 No Notes: (Same as: Lopressor) Yolis Young Acetaminoph en 325 MG / Hydrocodone Bitartrate 5 MG Oral Tablet [[place] 5/325] 10-07 23:00: 00 No Notes: (Same as: [place] 325/5) Do not exceed 4gm/day of acetaminop hen. Yolis Young insulin, isophane 10-07 21:00: 00 No Notes: Roll in palms of hands gently; Do not shake vigorously . (Same as: Humulin N) Do not hold insulin without contacting prescriber WASTE: F/P - Black; E - Municipal Trash Bin Stable for 28 days at room temperatur e Expires in days from ____Date Yolis Young Acetaminoph en 325 MG / Hydrocodone Bitartrate 5 MG Oral Tablet [[place] 5/325] 10-07 19:53: 00 No Notes: (Same as: [place] 325/5) Do not exceed 4gm/day of acetaminop hen. Yolis Young Morphine 10-07 17:31: 00 No Notes: (Same as:MORPhin e Sulfate) Yolis Young Vancomycin 10-07 15:41: 00 No 750 mg, Route: IV, ONCE, Dosing Weight 105.9, kg, Start date: 10/07/16 10:41:00 CDT, Stop date: 10/07/16 10:41:00 CDT, ABX Indication : Bacteremia Yolis Young Insulin regular 10-07 15:40: 00 No 60 units) WASTE: F/P - Black; E - Municipal Trash Bin Stable for 28 days at room temperatur e Expires in days from ____Date Yolis Young Glucagon 10-07 15:40: 00 No 1 mg, Route: IM, Drug form: PDR/INJ, PRN, Dosing Weight 105.9, kg, PRN Blood Glucose Results, Start date: 10/07/16 10:40:00 CDT, Duration: 30 day, Stop date: 11/06/16 10:39:00 CDT Yolis Young Dextrose 50% Syringe 10-07 15:40: 00 No 25 gm, 50 mL, Route: IVP, Drug Form: INJ, Dosing Weight 105.9, kg, PRN, PRN Blood Glucose Results, Start date: 10/07/16 10:40:00 CDT, Duration: 30 day, Stop date: 11/06/16 10:39:00 CDT Yolis Young Magnesium Oxide 10-07 10:45: 00 No Notes: (Same as: Mag-Ox 400) Magnesium oxide 479au=165v g elemental magnesium Dose=____m g magnesium oxide (___mg elemental magnesium) Yolis Young Magnesium Sulfate 10-07 10:45: 00 No Notes: WASTE: F/P - Sink; E - Municipal Trash Bin Yolis Young Calcium Gluconate 10-07 10:45: 00 No Notes: WASTE: F/P - Sink; E - Municipal Trash Bin Yolis Young potassium chloride 10-07 10:45: 00 No Notes: (Same as: Potassium Chloride) Yolis Young sodium phosphate + sodium chloride 0.9% INJ 250 mL 10-07 10:45: 00 No 15 mmol, 5 mL, Route: IVPB, PRN, Dosing Weight 105.9, kg, PRN Abnormal Lab Result, Start date: 10/07/16 5:45:00 CDT, Duration: 30 day, Stop date: 11/06/16 5:44:00 CDT, FOR ICU USE ONLY Yolis Young potassium phosphate + sodium chloride 0.9% INJ 250 mL 10-07 10:45: 00 No Notes: (Same as: K Phosphate. ) 1 mMol phoshate has 1.47 mEq potassium Infuse over 4 hours Yolis Young Calcium Carbonate 500 MG Chewable Tablet 10-07 10:45: 00 No Notes: (Same As: Tums) Calcium Carbonate 500 mg = 200 mg elemental calcium Dose = mg calcium carbonate ( mg elemental calcium) Yolis Young potassium phosphate-s odium phosphate 250 mg-280 mg-160 mg oral powder for reconstitut ion 10-07 10:45: 00 No Notes: (Same as: Phos-NaK) Each 1.5 gm pkt has 250mg phosphorou s. Mix w/2.5oz water and stir. Yolis rodriguez Hector Hydralazine 10-07 09:00: 00 No Notes: (Same as: Apresoline ) Push over 5 minutes Yolis rodriguez Hector Hydralazine 10-07 07:52: 00 No Notes: (Same as: Apresoline ) Push over 5 minutes Yolis Young 24 HR Nifedipine 30 MG Extended Release Tablet 10-07 06:14: 00 No Notes: (Same as: Adalat CC, Procardia XL) Give on empty stomach. Take 1 hour before or 2 hours after meal; "Avoid grapefruit and grapefruit juice". Do not crush Yolis Young Lisinopril 10-07 06:13: 00 No Notes: (Same as: Prinivil, Zestril) Yolis Young Isosorbide Dinitrate 10-07 05:05: 00 No Notes: (Same as:Isordil ) Take on empty stomach/ full glass of water Yolis Young Doxazosin 10-07 05:05: 00 No Notes: (Same as: Cardura) Yolis Young metoprolol tartrate 10-07 01:00: 00 No 50 mg, Route: PO, Drug form: TAB, BID, Dosing Weight 105.9, kg, Start date: 10/06/16 20:00:00 CDT, Duration: 30 day, Stop date: 11/05/16 17:00:00 CDT oYlis Young metoprolol tartrate 10-06 22:08: 00 No Notes: (Same as: Lopressor) Yolis Young 24 HR Nifedipine 60 MG Extended Release Tablet 10-06 18:23: 00 No Notes: (Same as: Adalat CC, Procardia XL) Give on empty stomach. Take 1 hour before or 2 hours after meal; "Avoid grapefruit and grapefruit juice". Do not crush Yolis jennifer Young Labetalol 10-06 18:16: 00 No 10 mg, Route: IV, ONCE, Dosing Weight 105.9, kg, Start date: 10/06/16 13:16:00 CDT, Stop date: 10/06/16 13:16:00 CDT Yolis jennifer Hector Glucagon 10-06 15:22: 00 No 1 mg, Route: IM, Drug form: PDR/INJ, PRN, Dosing Weight 105.9, kg, PRN Blood Glucose Results, Start date: 10/06/16 10:22:00 CDT, Duration: 30 day, Stop date: 11/05/16 10:21:00 CDT Yolis Young Dextrose 50% Syringe 10-06 15:22: 00 No 12.5 gm, 25 mL, Route: IVP, Drug Form: INJ, Dosing Weight 105.9, kg, PRN, PRN Blood Glucose Results, Start date: 10/06/16 10:22:00 CDT, Duration: 30 day, Stop date: 11/05/16 10:21:00 CDT Yolis Young Insulin, Aspart, Human 10-06 15:22: 00 No Notes: Roll in palms of hands gently; Do not shake vigorously . (Same as: NovoLOG) "single patient use only" WASTE: F/P - Black; E - Municipal Trash Bin Stable for 28 days at room temperatur e. Expires in days from ____Date Yolis Young Docusate 10-06 14:00: 00 No Notes: (Same as: Colace) (Do Not Crush) Yolis Young Ondansetron 10-06 12:15: 00 No Notes: (Same as: Zofran) MEDICATION WASTE Product Size: 4 mg Product Wasted: ___ mg Yolis Young Morphine 10-06 12:15: 00 No Notes: (Same as:MORPhin e Sulfate) Yolis Young Zofran 10-06 12:13: 00 No Notes: (Same as: Zofran) MEDICATION WASTE Product Size: 4 mg Product Wasted: ___ mg Yolis Young Morphine 10-06 12:13: 00 No Notes: (Same as:MORPhin e Sulfate) Morenovanessa jennifer Young metoprolol tartrate 01-25 02:00: 00 No Notes: (Same as: Lopressor) Morenovanessa jennifer Young Nifedipine 20 MG Oral Capsule 01-24 22:27: 00 No Notes: (Same as: Adalat, Procardia) "Avoid grapefruit and grapefruit juice Yolis Young influenza virus vaccine, inactivated 01-24 14:00: 00 No Notes: (Same as: Fluzone Quadrivale nt, Fluarix Quadrivale nt) For 3 years of age and older (0.5 mL IM) Shake well before use Yolis Young Streptococc us pneumoniae serotype 1 capsular antigen diphtheria [id number] protein conjugate vaccine / Streptococc us pneumoniae serotype 14 capsular antigen diphtheria [id number] protein conjugate vaccine / Streptococc us pneumoniae serotype 18C capsular antigen d 01-24 14:00: 00 No Notes: Lightly roll vial (DO NOT SHAKE) before administra tion. (Same as: Prevnar 13) Yolis Young Enoxaparin 01-24 13:00: 00 No Notes: (Same as: Lovenox) Yolis Young potassium chloride 01-24 03:00: 00 No Notes: Infuse at a rate of 10 mEq/hr. (Same as: KCL) Yolis Young potassium chloride 01-24 00:06: 00 No 40 mEq, Route: IV, ONCE, Dosing Weight 115.045, kg, Start date: 01/24/16 19:06:00 CDT, Stop date: 01/24/16 19:06:00 CDT Yolis Young Labetalol 01-23 23:32: 00 No Notes: (Same as: Normodyne, Trandate) Push over 2 minutes Give bolus over 2-3 minutes. Yolis Young Vasotec 01-23 23:32: 00 No Notes: (Same as: Vasotec-IV ) Yolis Young Insulin, Aspart, Human 01-23 22:41: 00 No Notes: Roll in palms of hands gently; Do not shake vigorously . (Same as: NovoLOG) "single patient use only" WASTE: F/P - Black; E - Municipal Trash Bin Stable for 28 days at room temperatur e. Expires in days from ____Date Yolis Young Dextrose 50% Syringe 01-23 22:41: 00 No 25 gm, 50 mL, Route: IVP, Drug Form: INJ, Dosing Weight 115.045, kg, PRN, PRN Blood Glucose Results, Start date: 01/24/16 17:41:00 CDT, Duration: 30 day, Stop date: 02/23/16 17:40:00 CDT Yolis Jacksonann Glucagon 01-23 22:41: 00 No 1 mg, Route: IM, Drug form: PDR/INJ, PRN, Dosing Weight 115.045, kg, PRN Blood Glucose Results, Start date: 01/24/16 17:41:00 CDT, Duration: 30 day, Stop date: 02/23/16 17:40:00 CDT Morenovanessa jennifer Young Hydralazine 01-23 22:22: 00 No Notes: (Same as: Apresoline ) Push over 5 minutes Morenovanessa jennifer Young Labetalol 01-23 19:23: 00 No 10 mg, Route: IVP, Drug form: INJ, ONCE, Dosing Weight 115.045, kg, Start date: 01/24/16 14:23:00 CDT, Stop date: 01/24/16 14:23:00 CDT Yolis Young Ondansetron 01-23 19:21: 00 No 4 mg, Route: IVP, ONCE, Dosing Weight 115.045, kg, PRN Nausea & Vomiting, Start date: 01/24/16 14:21:00 CDT Morenovanessa jennifer Young Promethazin e 01-23 19:21: 00 No 6.25 mg, Route: IVPB, ONCE, Dosing Weight 115.045, kg, PRN Nausea & Vomiting, Start date: 01/24/16 14:21:00 CDT Yolis Young Naloxone 01-23 19:21: 00 No 0.4 mg, Route: IVP, Q2MIN, Dosing Weight 115.045, kg, PRN Narcotic Reversal, Start date: 01/24/16 14:21:00 CDT, Duration: 8 doses or times, Stop date: Limited # of times Morenovanessa jennifer Young Flumazenil 01-23 19:21: 00 No 0.2 mg, Route: IVP, PRN, Dosing Weight 115.045, kg, PRN Benzodiaze pine Reversal, Initial dose, Start date: 01/24/16 14:21:00 CDT, Duration: 30 day, Stop date: 02/23/16 14:20:00 CDT Morenovanessa Young Ketorolac 01-23 19:21: 00 No 30 mg, Route: IVP, ONCE, Dosing Weight 115.045, kg, Start date: 01/24/16 14:21:00 CDT, Duration: 1 doses or times, Stop date: 01/24/16 14:21:00 CDT Morenovanessa jennifer Hector Hydromorpho ne 01-23 19:21: 00 No 0.5 mg, Route: IVP, Q5Min, Dosing Weight 115.045, kg, PRN Pain Score 7-10, Start date: 01/24/16 14:21:00 CDT, Duration: 4 doses or times, Stop date: Limited # of times Yolis jennifer Hector Fentanyl 01-23 19:21: 00 No 25 microgram, Route: IVP, Q5Min, Dosing Weight 115.045, kg, PRN Pain Score 4-6, Start date: 01/24/16 14:21:00 CDT, Duration: 4 doses or times, Stop date: Limited # of times Morenovanessa jennifer Young glycopyrrol ate (ANES) 01-23 19:00: 00 No Route: IV, Drug form: INJ, ONCE, Stop date: 01/24/16 14:00:00 CDT Morenovanessa jennifer Young neostigmine (ANES) 01-23 19:00: 00 No Route: IV, Drug form: INJ, ONCE, Stop date: 01/24/16 14:00:00 CDT Yolis Young sodium chloride 0.9% 1000 ml INJ 1,000 mL 01-23 18:52: 00 No 1,000 mL, Rate: 100 ml/hr, Infuse over: 10 hr, Route: IV, Dosing Weight 115.045 kg, Total Volume: 1,000, Start date: 01/24/16 13:52:00 CDT, Duration: 30 day, Stop date: 02/23/16 13:51:00 CDT Yolis Young acetaminoph en-codeine #3 01-23 18:52: 00 No Notes: Do not exceed 4gm/day of acetaminop hen. (Same as: Tylenol with Codeine # 3) Memoria l Hector Morphine 01-23 18:52: 00 No Notes: (Same as:MORPhin e Sulfate) Memoria l Hector rocuronium (ANES) 01-23 18:37: 00 No Route: IV, Drug form: INJ, ONCE, Stop date: 01/24/16 13:37:00 CDT Memoria l Hector propofol (ANES) 01-23 18:37: 00 No Route: IV, Drug form: INJ, ONCE, Stop date: 01/24/16 13:37:00 CDT Memoria l Hector lidocaine (ANES) 01-23 18:37: 00 No Route: IV, Drug form: INJ, ONCE, Stop date: 01/24/16 13:37:00 CDT Memoria l Hector protamine (ANES) (ANES) 01-23 18:34: 00 No Route: IV, Drug form: INJ, Start date: 01/24/16 13:34:00 CDT, Stop date: 01/24/16 14:34:00 CDT Memoria l Hector midazolam (ANES) 01-23 18:32: 00 No Route: IV, Drug form: SOLN, ONCE, Stop date: 01/24/16 13:32:00 CDT Memoria l Hector fentaNYL (ANES) 01-23 18:32: 00 No Route: IV, Drug form: INJ, ONCE, Stop date: 01/24/16 13:32:00 CDT Memoria l Hector ondansetron (ANES) 01-23 18:32: 00 No Route: IV, Drug form: INJ, ONCE, Stop date: 01/24/16 13:32:00 CDT Memoria l Hector heparin (ANES) 01-23 18:32: 00 No Route: IV, Drug form: INJ, ONCE, Stop date: 01/24/16 13:32:00 CDT Memoria l Hector acetaminoph en (ANES) (ANES) 01-23 18:26: 00 No Route: IV, Drug form: INJ, Start date: 01/24/16 13:26:00 CDT, Stop date: 01/24/16 14:26:00 CDT Yolis jennifer Hector sodium bicarbonate (ANES) (ANES) 01-23 18:19: 00 No Route: IV, Drug form: INJ, Start date: 01/24/16 13:19:00 CDT, Stop date: 01/24/16 14:19:00 CDT Yolis jennifer Hector LR 1000 mL INJ (ANES) 01-23 18:09: 00 No Route: IV, Total Volume: 1,000, Start date: 01/24/16 13:09:00 CDT, Stop date: 01/24/16 14:09:00 CDT Yolis Young vancomycin (ANES) (ANES) 01-23 17:44: 00 No Route: IV, Drug form: INJ, Start date: 01/24/16 12:44:00 CDT, Stop date: 01/24/16 13:44:00 CDT Yolis Young ceFAZolin (ANES) (ANES) 01-23 17:42: 00 No Route: IV, Drug form: INJ, Start date: 01/24/16 12:42:00 CDT, Stop date: 01/24/16 13:42:00 CDT Morenovanessa jennifer Young sodium chloride 0.9% 1000 ml INJ (ANES) 01-23 17:22: 00 No Route: IV, Total Volume: 1,000, Start date: 01/24/16 12:22:00 CDT, Stop date: 01/24/16 13:22:00 CDT Yolis Young Acetylcyste ine 200 MG/ML Inhalant Solution 01-23 12:14: 00 No Notes: send to Yolis Young Ancef 01-16 17:00: 00 No Notes: Same as: Jaki Young Vancomycin 01-16 17:00: 00 No 2001 mg: infuse over 2.5 hours MEDICATION WASTE Product Size: 1000 mg Product Wasted: ___ mg Yolis Young rivaroxaban 20 MG Oral Tablet [Xarelto] 01-16 16:47: 00 Yes 20 mg = 1 tab, PO, QPM, # 30 tab, 3 Refill(s) Yolis Young 3 ML Insulin Lispro 100 UNT/ML Pen Injector [Humalog] 01-16 16:45: 00 Yes 5 unit, SUB-Q, Bedtime, # 3 mL, 0 Refill(s) Yolis Young Acetylcyste ine 200 MG/ML Inhalant Solution 01-16 16:12: 00 No 900 mg, 4.5 mL, Route: PO, Drug form: SOLN, PRN, Dosing Weight 114.2, kg, PRN Abnormal Lab Result, Start date: 01/17/16 11:12:00 CDT, Duration: 2 day, Stop date: 01/19/16 11:11:00 CDT Yolis Young sodium chloride 0.9% 1000 ml INJ 1,000 mL 01-16 16:12: 00 No 1,000 mL, Rate: 150 ml/hr, Infuse over: 6.7 hr, Route: IV, Dosing Weight 114.2 kg, Total Volume: 1,000, Start date: 01/17/16 11:12:00 CDT, Duration: 30 day, Stop date: 02/16/16 11:11:00 CDT Yolis Young Furosemide 40 MG Oral Tablet [Lasix] 11-13 21:00: 00 No Notes: (Same as: Lasix) May cause GI upset. Give with food or milk. Yolis Young Aspirin Enteric Coated 81 mg oral delayed release tablet 11-13 20:53: 45 Yes 81 mg = 1 tab, PO, Daily, # 60 tab, 1 Refill(s) Yolis Young Insulin, Aspart, Human 11-13 20:53: 00 Yes 4 unit, SUB-Q, TID-Before Meals, PRN Blood Glucose Results, 0 Refill(s) Yolis Young Nitroglycer in 0.4 MG Sublingual Tablet 11-13 20:53: 00 Yes 0.4 mg = 1 tab, SL, Q5Min, PRN Chest Pain, # 30 tab, 0 Refill(s) Yolis Young 24 HR Nifedipine 60 MG Extended Release Tablet 11-13 20:53: 00 Yes 60 mg = 1 tab, PO, Q12H, # 60 tab, 0 Refill(s) Morenovanessa Jacksonann 24 HR Nicotine 0.875 MG/HR Transdermal Patch [Nicoderm C-Q] 11-13 20:53: 00 Yes = 1 patch, TOP, Daily, X 7 day, # 7 patch, 0 Refill(s) Morenovanessa jennifer Young doxazosin 2 mg oral tablet 11-13 20:53: 00 Yes 2 mg = 1 tab, PO, BID, # 30 tab, 1 Refill(s) Morenovanessa jennifer Hector Metronidazo le 500 MG Oral Tablet 11-13 20:53: 00 Yes 500 mg = 1 tab, PO, [id number], # 15 tab, 0 Refill(s) Morenovanessa jennifer Young metoprolol tartrate 50 mg oral tablet 11-13 20:53: 00 Yes 50 mg = 1 tab, PO, Q12H, # 60 tab, 0 Refill(s) Yolis Young isosorbide dinitrate 10 mg oral tablet 11-13 20:53: 00 Yes 20 mg = 2 tab, PO, TID, # 90 tab, 0 Refill(s) Morenovanessa jennifer Young Insulin Aspart 100 unit/ml - (Medium CD) 11-13 20:53: 00 Yes 1 unit, SUB-Q, TID-Before Meals, PRN Blood Glucose Results, see Sliding Scale instructio ns for dosing, # 3 mL, 1 Refill(s) Yolis Young Furosemide 40 MG Oral Tablet [Lasix] 11-13 20:53: 00 Yes 40 mg = 1 tab, PO, Daily, # 30 tab, 1 Refill(s) Morenovanessa jennifer Young Flonase 0.05 mg/inh nasal spray 11-13 20:53: 00 Yes 100 microgram = 2 spray, Each Affected Nostril, Daily, # 1 ea, 0 Refill(s) Yolis Young ezetimibe 10 mg oral tablet 11-13 20:53: 00 Yes 10 mg = 1 tab, PO, Daily, # 30 tab, 0 Refill(s) Yolis Young ciprofloxac in 500 mg oral tablet 11-13 20:53: 00 Yes 500 mg = 1 tab, PO, [id number], # 11 tab, 0 Refill(s) Yolis Young Lasix 11-13 14:00: 00 No Notes: (Same as: Lasix) MEDICATION WASTE Product Size: 40 mg Product Wasted: ___ mg Yolis Young Insulin, Aspart, Human 11-13 02:24: 00 No Notes: Roll in palms of hands gently; Do not shake vigorously . (Same as: NovoLOG) "single patient use only" WASTE: F/P - Black; E - Municipal Trash Bin Stable for 28 days at room temperatur e. Expires in days from ____Date Yolis jennifer Hector Dextrose 50% Syringe 11-13 02:24: 00 No 25 gm, 50 mL, Route: IVP, Drug Form: INJ, Dosing Weight 114.2, kg, PRN, PRN Blood Glucose Results, Start date: 11/13/15 21:24:00 CDT, Duration: 30 day, Stop date: 12/13/15 21:23:00 CDT Yolis Young Glucagon 11-13 02:24: 00 No 1 mg, Route: IM, Drug form: PDR/INJ, PRN, Dosing Weight 114.2, kg, PRN Blood Glucose Results, Start date: 11/13/15 21:24:00 CDT, Duration: 30 day, Stop date: 12/13/15 21:23:00 CDT Morenovanessa Jacksonann senna 8.6 mg oral tablet 11-12 17:00: 00 No Notes: (Same as: Senokot) Morenovanessa jennifer Swiss Lactulose 667 MG/ML Oral Solution 11-12 17:00: 00 No Notes: (Same as:Chronul ac) Yolis Young Dulcolax Laxative 11-12 14:00: 00 No Notes: (Same As: Dulcolax, Bisco-Lax) Yolis Young Milk of Magnesia 11-11 23:16: 00 No Notes: (Same as: Milk of Magnesia, MOM) Yolis Young Reglan 11-11 23:16: 00 No Notes: (Same as: Reglan) Yolis Young Lasix 11-11 16:43: 00 No Notes: (Same as: Lasix) Yolis Young Magnesium Oxide 11-11 11:43: 00 No Notes: (Same as: Mag-Ox 400) Magnesium oxide 254yp=174l g elemental magnesium Dose=____m g magnesium oxide (___mg elemental magnesium) Yolis Jacksonann Simethicone 11-10 23:00: 00 No Notes: (Same as: Mylicon) Morenovanessa jennifer Young heparin sodium, porcine 2500 UNT/ML Injectable Solution 11-10 21:00: 00 No Notes: porcine heparin Yolis Young Flonase 0.05 mg/inh nasal spray 11-10 16:11: 00 No Notes: (Same as: Flonase) Yolis Jcaksonann Protonix 11-10 14:00: 00 No Notes: For IV push reconstitu te with 10 ml 0.9% sodium chloride and push over 2 minutes. (Same as: Protonix) Yolis Young metoprolol tartrate 11-10 11:35: 00 No Notes: (Same as: Lopressor) Yolis Young 24 HR Nifedipine 60 MG Extended Release Tablet 11-10 11:33: 00 No Notes: (Same as: Adalat CC, Procardia XL) Give on empty stomach. Take 1 hour before or 2 hours after meal; "Avoid grapefruit and grapefruit juice". Do not crush Yolis Young Sodium Chloride 0.154 MEQ/ML Injectable Solution 11-10 06:12: 00 No 1,000 mL, 1,000 ml/hr, Infuse Over: 1 hr, Route: IV, 1,000, Drug form: INJ, ONCE, Priority: STAT, Dosing Weight 114.2 kg, Start date: 11/11/15 1:12:00 CDT, Duration: 1 doses or times, Stop date: 11/11/15 1:12:00 CDT Yolis Young Morphine 11-10 06:11: 00 No Notes: (Same as:MORPhin e Sulfate) Yolis Young Metoprolol 11-10 03:02: 00 No Notes: (Same as: Lopressor) Push over 2 minutes Yolis Young potassium chloride 11-10 02:49: 00 No Notes: (Same as: KCL) Infuse no faster than 10 mEq/hr if given peripheral ly. Yolis Young Zofran 11-10 01:02: 00 No Notes: (Same as: Zofran) MEDICATION WASTE Product Size: 4 mg Product Wasted: __0_ mg Yolis Young Maalox Advanced Regular Strength SUSP 11-09 23:05: 00 No Notes: (aluminum hydroxide- magnesium hyd-simeth icone 200-200-20 mg/5ml 30 ml ud SIN) Yolis Jacksonann Acetylcyste ine 200 MG/ML Inhalant Solution 11-09 02:00: 00 No 1,200 mg, 6 mL, Route: PO, Drug form: SOLN, Q12H, Dosing Weight 114.2, kg, Start date: 11/09/15 21:00:00 CDT, Duration: 4 doses or times, Stop date: 11/11/15 9:00:00 CDT Yolis rodriguez Swiss sodium chloride 0.9% 1000 ml INJ 1000 mL 11-08 20:50: 00 No 1,000 mL, Rate: 75 ml/hr, Infuse over: 13.3 hr, Route: IV, Dosing Weight 114.2 kg, Total Volume: 1,000, Start date: 11/09/15 15:50:00 CDT, Stop date: 11/12/15 6:00:00 CDT Yolis jennifer Young Magnesium Sulfate 11-08 16:35: 00 No Notes: WASTE: F/P - Sink; E - Municipal Trash Bin Yolis jennifer Swiss metoprolol tartrate 11-08 15:03: 00 No Notes: (Same as: Lopressor) 12.5mg=1/4 X 50 mg tab. Yolis Young Heparin - one time bolus for ACS 11-08 14:32: 00 No 4,000 unit, 4 mL, Route: IV, Drug form: INJ, ONCE, Dosing Weight 114.2, kg, Priority: STAT, Start date: 11/09/15 9:32:00 CDT, Stop date: 11/09/15 9:32:00 CDT Yolis Young heparin additive 25,000 unit [12 unit/kg/hr] + Premix Diluent Dextrose 5% 500 mL 11-08 14:32: 00 No 500 mL, Rate: 21.48 ml/hr, Infuse over: 23.3 hr, Route: IV, Dosing Weight 89.48 kg, Total Volume: 500 mL, Start date: 11/09/15 9:32:00 CDT, Duration: 30 day, Stop date: 12/09/15 9:31:00 CDT Yolis Young sennosides, RESIDENTIAL 11-08 14:00: 00 No Notes: (Same as: Senokot) Yolis Young Calcium Gluconate 11-08 13:07: 00 No Notes: WASTE: F/P - Sink; E - Municipal Trash Bin Yolis Young potassium phosphate + sodium chloride 0.9% INJ 250 mL 11-08 13:06: 00 No Notes: (Same as: K Phosphate. ) 1 mMol phoshate has 1.47 mEq potassium Infuse over 4 hours Yolis Young potassium chloride 11-08 13:06: 00 No Notes: (Same as: KCL) Infuse no faster than 10 mEq/hr if given peripheral ly. Yolis Young Lorazepam 11-08 07:53: 00 No 1 mg, Route: IV, ONCE, Dosing Weight 114.2, kg, Start date: 11/09/15 2:53:00 CDT, Stop date: 11/09/15 2:53:00 CDT Yolis Young Morphine 11-08 07:44: 00 No 4 mg, Route: IVP, ONCE, Dosing Weight 114.2, kg, Start date: 11/09/15 2:44:00 CDT, Stop date: 11/09/15 2:44:00 CDT Yolis Young Morphine 11-08 07:43: 00 No 2 mg, Route: IVP, ONCE, Dosing Weight 114.2, kg, Start date: 11/09/15 2:43:00 CDT, Stop date: 11/09/15 2:43:00 CDT Yolis Young Nicardipine 11-08 06:48: 00 No Notes: Same as: Cardene Concentrat ion: (0.2 mg /1 ml ) Yolis Young esmolol 11-08 06:11: 00 No Notes: (Same as: Brevibloc) 10 mg/ml conc. Yolis Young Ativan 11-08 05:52: 00 No 1 mg, Route: IVP, Drug form: INJ, ONCE, Dosing Weight 114.2, kg, PRN Anxiety, Start date: 11/09/15 0:52:00 CDT Morenovanessa Young Morphine 11-08 05:22: 00 No Notes: (Same as:MORPhin e Sulfate) Morenovanessa jennifer Hector Metronidazo le 11-08 00:00: 00 No Notes: (Same as: Flagyl) Take with food/ avoid alcohol Yolis Young Ciprofloxac in 11-07 22:00: 00 No Notes: May interfere w/enteral feedings - Take 1 hr before or 2 hrs after antacids, dairy pdt & minerals. On empty stomach. Yolis rodriguez Hector Ativan 11-07 08:14: 00 No Notes: (Same as: Ativan) Morenovanessa jennifer Hector Tylenol 11-07 03:33: 00 No Notes: Do not exceed 4 gm/day. (Same as: Tylenol) Yolis Young Nitroglycer in 11-07 02:33: 00 No Notes: (Same as:Nitroqu ick, Nitrostat) "Do Not Crush" Sublingual tablet Morenovanessa jennifer Hector Morphine 11-07 02:33: 00 No Notes: (Same as:MORPhin e Sulfate) Yolis Young Hydralazine 11-06 22:49: 00 No Notes: (Same as: Apresoline ) Push over 5 minutes Yolis Young heparin sodium, porcine 2500 UNT/ML Injectable Solution 11-06 21:00: 00 No Notes: porcine heparin Yolis Young Metronidazo le 11-06 15:00: 00 No Notes: (Same as: Flagyl) Avoid alcohol. Yolis Young Vancomycin 11-06 14:06: 00 No 2001 mg: infuse over 2.5 hours MEDICATION WASTE Product Size: 1000 mg Product Wasted: ___ mg Yolis Young Zetia 11-06 14:00: 00 No Notes: (Same as: Zetia) Yolis Young Isosorbide Dinitrate 11-06 14:00: 00 No Notes: (Same as:Isordil ) Take on empty stomach/ full glass of water Yolis Young Aspirin 11-06 14:00: 00 No Notes: Do not crush or chew. (Same As: Ecotrin) Yolis Young Doxazosin 11-06 11:10: 00 No Notes: (Same as: Cardura) Yolis Young Calcium Gluconate 11-06 10:59: 00 No 2,000 mg, Route: IVPB, Drug form: INJ, ONCE, Dosing Weight 114.2, kg, Start date: 11/07/15 5:59:00 CDT, Stop date: 11/07/15 5:59:00 CDT Yolis Young Magnesium Sulfate 11-06 10:58: 00 No 1 gm, Route: IVPB, Drug form: INJ, ONCE, Dosing Weight 114.2, kg, Start date: 11/07/15 5:58:00 CDT, Stop date: 11/07/15 5:58:00 CDT Yolis Young potassium phosphate 11-06 10:58: 00 No 30 mmol, Route: IVPB, ONCE, Dosing Weight 114.2, kg, Start date: 11/07/15 5:58:00 CDT, Stop date: 11/07/15 5:58:00 CDT Yolis Young Nicotine 11-06 04:06: 00 No Notes: (Same as: Habitrol) "Remove old patch before applicatio n of new patch" WASTE: F/P - P Waste Black; E - P Waste Black Yolis Young metoprolol tartrate 11-06 02:00: 00 No Notes: (Same as: Lopressor) Yolis Young Amlodipine 11-06 02:00: 00 No Notes: (Same as: Norvasc) Yolis Young Protonix 11-05 21:30: 00 No Notes: For IV push reconstitu te with 10 ml 0.9% sodium chloride and push over 2 minutes. (Same as: Protonix) Yolis Young Labetalol 11-05 16:34: 00 No 10 mg, Route: IV, ONCE, Dosing Weight 114.2, kg, Start date: 11/06/15 11:34:00 CDT, Stop date: 11/06/15 11:34:00 CDT Yolis Young Vancomycin 11-05 16:00: 00 No 2001 mg: infuse over 2.5 hours MEDICATION WASTE Product Size: 1000 mg Product Wasted: ___ mg Yolis Young Flagyl 11-05 16:00: 00 No Notes: (Same as: Flagyl) Avoid alcohol. Yolis Young cefepime 11-05 16:00: 00 No Notes: (Same As: Maxipime) MEDICATION WASTE Product Size: 1000 mg Product Wasted: ___ mg Yolis Young Docusate 11-05 14:00: 00 No Notes: (Same as: Colace) (Do Not Crush) Yolis Young Enoxaparin 11-05 09:00: 00 No 30 mg, Route: SUB-Q, Drug form: INJ, [id number], Dosing Weight 114.2, kg, Start date: 11/06/15 4:00:00 CDT, Duration: 30 day, Stop date: 12/05/15 4:00:00 CDT Yolis Young heparin 11-05 09:00: 00 No Notes: porcine heparin Yolis Young Acetaminoph en 325 MG / Hydrocodone Bitartrate 5 MG Oral Tablet 11-05 08:32: 00 No Notes: (Same as: [place] 325/5) Do not exceed 4gm/day of acetaminop hen. Yolis Jacksonann Ondansetron 11-05 08:32: 00 No Notes: (Same as: Zofran) MEDICATION WASTE Product Size: 4 mg Product Wasted: ___ mg Yolis Young Acetaminoph en 11-05 08:32: 00 No Notes: Do not exceed 4 gm/day. (Same as: Tylenol) Yolis Young sodium chloride 0.45% 1000 ml INJ 1,000 mL 11-05 08:28: 00 No 1,000 mL, Rate: 30 ml/hr, Infuse over: 33.3 hr, Route: IVPB, Dosing Weight 114.2 kg, Total Volume: 1,000, Start date: 11/06/15 3:28:00 CDT, Stop date: 12/06/15 3:27:00 CDT Yolis Young niCARdipine 40 mg/ NS 200 ml IV Soln (premix) 40 mg 11-05 08:26: 00 No Notes: Same as: Navdeepene Concentrat ion: (0.2 mg /1 ml ) Yolis Young Dextrose 50% Syringe 11-05 08:17: 00 No 12.5 gm, 25 mL, Route: IVP, Drug Form: INJ, Dosing Weight 114.2, kg, PRN, PRN Blood Glucose Results, Start date: 11/06/15 3:17:00 CDT, Duration: 30 day, Stop date: 12/06/15 3:16:00 CDT Yolis Young Glucagon 11-05 08:17: 00 No 1 mg, Route: IM, Drug form: PDR/INJ, PRN, Dosing Weight 114.2, kg, PRN Blood Glucose Results, Priority: STAT, Start date: 11/06/15 3:17:00 CDT, Duration: 30 day, Stop date: 12/06/15 3:16:00 CDT Yolis Young Xarelto 06-11 23:00: 00 No Notes: (Same as: Xarelto) Administer with food Yolis Morley 06-11 20:04: 00 No Notes: (Same as: Milli) Yolis Young Aspirin Enteric Coated 81 mg oral delayed release tablet 06-11 20:01: 00 Yes 81 mg = 1 tab, PO, Daily, # 60 tab, 1 Refill(s) Yolis Young rivaroxaban 20 MG Oral Tablet [Xarelto] 06-11 19:15: 00 Yes 20 mg, PO, QPM, # 60 tab, 1 Refill(s) Morenovanessa jennifer Swiss Praluent (alirocumab ) 75 mg/ml 06-11 18:00: 00 No Praluent (alirocuma b) 75 mg/ml, 75 mg, Drug form: MISC, Route: SUB-Q, Q14D, 06/11/15 12:00:00, Duration: 30 day, Stop date: 07/09/15 12:00:00 Morenovanessa jennifer Young montelukast 06-11 15:00: 00 No Notes: (Same as:Hieu du) Morenovanessa jennifer Young 1 ML alirocumab 75 MG/ML Auto-Inject or [Praluent] 06-11 13:00: 00 Yes 75 mg, SUB-Q, Q14D, 0 Refill(s) Yolis Young Praluent (alirocumab ) 06-11 00:00: 00 No Praluent (alirocuma b), 75 mg/mL, Drug form: INJ, Route: SUB-Q, Q14D, 06/10/15 18:00:00, Duration: 30 day, Stop date: 07/08/15 9:00:00, Patient's Own Meds Yolis Young Sotalol Hydrochlori de 160 MG Oral Tablet 06-10 23:00: 00 No Notes: (Same As: Betapace) Yolis Young Losartan 06-10 21:46: 00 No Notes: (Same as: Cozaar) Yolis Young Amlodipine 06-10 21:05: 00 No Notes: (Same as: Norvasc) Yolis Young sotalol 160 mg oral tablet 06-10 15:20: 00 Yes 160 mg = 1 tab, PO, BID, 0 Refill(s) Yolis Young Aspirin Enteric Coated 81 mg oral delayed release tablet 06-10 15:20: 00 No 81 mg = 1 tab, PO, Daily, 0 Refill(s) Yolis Young doxazosin 2 mg oral tablet 06-10 15:20: 00 Yes 2 mg = 1 tab, PO, BID, 0 Refill(s) Yolis Young losartan 100 mg oral tablet 06-10 15:20: 00 Yes 100 mg = 1 tab, PO, Daily, 0 Refill(s) Yolis Young Metformin hydrochlori de 1000 MG Oral Tablet 06-10 15:20: 00 Yes 1,000 mg = 1 tab, PO, BID, 0 Refill(s) Yolis Young montelukast 10 mg oral tablet 06-10 15:08: 00 Yes 10 mg = 1 tab, PO, QAM, 0 Refill(s) Yolis Young amLODIPine 10 mg oral tablet 06-10 15:08: 00 Yes 10 mg = 1 tab, PO, BID, 0 Refill(s) Yolis Young GlipiZIDE XL 5 mg oral tablet, extended release 06-10 15:08: 00 Yes 5 mg = 1 tab, PO, BID, 0 Refill(s) Yolis Young Aspirin 06-10 15:06: 00 No Notes: Take with food. Yolis Young Saline Flush 0.9% 06-10 15:00: 00 No Notes: (Same as: BD Posiflush) Yolis Young heparin 06-10 15:00: 00 No Notes: porcine heparin Yolis Young Nicotine 06-10 15:00: 00 No Notes: (Same as: Habitrol) "Remove old patch before applicatio n of new patch" WASTE: F/P - P Waste Black; E - P Waste Black Yolis Young remove patch 06-10 15:00: 00 No Notes: Remove old patch before applicatio n of new patch. WASTE: F/P - P Waste Black; E - P Waste Black Yolis Young Regular Insulin, Human 100 UNT/ML Injectable Solution 06-10 05:20: 00 No 60 units) WASTE: F/P - Black; E - Municipal Trash Bin Stable for 28 days at room temperatur e Expires in days from ____Date Yolis Young Dextrose 50% Syringe 06-10 05:20: 00 No 6.25 gm, 12.5 mL, Route: IVP, Drug Form: INJ, Dosing Weight 115, kg, PRN, PRN Abnormal Lab Result, Start date: 06/09/15 23:20:00, Duration: 30 day, Stop date: 07/09/15 23:19:00 Yolis Young Aspirin 06-10 04:49: 00 No Notes: (Do Not Crush) Do not crush or chew. Yolis Young Saline Flush 0.9% 06-10 04:47: 00 No Notes: (Same as: BD Posiflush) Yolis Young enalapril 06-10 04:47: 00 No Notes: (Same as: Vasotec-IV ) Yolis Young Labetalol 06-10 04:47: 00 No 105 mmHg, Priority: Routine, Start date: 06/09/15 22:47:00, Duration: 30 day, Stop date: 07/09/15 22:46:00 Yolis Young Sodium Chloride 0.154 MEQ/ML Injectable Solution 06-10 02:59: 00 No 500 mL, 500 ml/hr, Infuse Over: 1 hr, Route: IV, ONCE, Priority: STAT, Dosing Weight 115 kg, Start date: 06/09/15 20:59:00, Duration: 1 doses or times, Stop date: 06/09/15 20:59:00 Yolis Young iodixanol 06-10 02:12: 00 No 85 mL, Route: IVP, Drug Form: SOLN, Dosing Weight 115, kg, ONCALL, STAT, Start date: 06/09/15 20:12:00, Duration: 1 doses or times, Dose = 2.2ml/kg, Max dose = 100ml -- "To be infused by Radiology Staff ONLY" Yolis Young iodixanol 06-10 02:11: 00 No 0 mL, Route: IVP, Drug Form: SOLN, Dosing Weight 115, kg, ONCALL, STAT, Start date: 06/09/15 20:11:00, Duration: 1 doses or times, Dose = 2.2ml/kg, Max dose = 100ml -- "To be infused by Radiology Staff ONLY" Yolis Young Iohexol 2-06 01:18: 00 No 85 mL, Route: IVP, Drug Form: SOLN, Dosing Weight 115, kg, ONCALL, STAT, Start date: 06/09/15 19:18:00, Duration: 1 doses or times, Dose = 2.2ml/kg, Max dose = 100ml -- "To be infused by Radiology Staff ONLY" Yolis rodriguez Hector clonidine 0.3 mg oral tablet 01-14 21:00: 00 No Vinny Sudarshan Popeye 0.3 mg, 1 tab, Route: PO, Drug form: TAB, Q8H, Dosing Weight 113.636, kg, Start date: 01/15/12 16:00:00, Duration: 30 day, Stop date: 02/14/12 8:00:00 Yolis rodriguez Hector clonidine 0.3 mg oral tablet 01-14 20:30: 29 Yes Vinny Sudarshan Popeye 0.3 mg, 1 tab, PO, Q8H, 90 tab, Substituti on Allowed, TAB Morenovanessa jennifer Young metoprolol 25 mg oral tablet 01-14 20:27: 17 Yes Vinny Sudarshan Popeye 75 mg, 3 tab, PO, Q8H, 90 tab, Substituti on Allowed, TAB Yolis jennifer Young Flomax 0.4 mg oral capsule 01-14 20:27: 11 Yes Vinny Sudarshan Popeye 0.4 mg, 1 cap, PO, Daily, 30 cap, Substituti on Allowed, CAP Morenovanessa jennifer Young glipiZIDE 5 mg oral tablet 01-14 20:27: 07 Yes Vinny Sudarshan Popeye 5 mg, 1 tab, PO, Daily, 30 tab, Substituti on Allowed, TAB Yolis Young Plavix 75 mg oral tablet 01-14 20:27: 03 Yes Vinny Stillvor Popeye 75 mg, 1 tab, PO, Daily, 30 tab, Substituti on Allowed, TAB Yolis Young metFORmin 1000 mg oral tablet 01-14 20:26: 55 Yes Vinny Loyolar Popeye 1,000 mg, 1 tab, PO, BID, 60 tab, Substituti on Allowed, TAB Yolis Young metoprolol tartrate 01-14 20:13: 00 No Vinny Chambersison 75 mg, 3 tab, Route: PO, Drug form: TAB, Q8H, Dosing Weight 113.636, kg, Priority: NOW, Start date: 01/15/12 15:13:00, Duration: 30 day, Stop date: 02/14/12 8:00:00 Yolis Young Flomax 01-14 14:00: 00 No Vinny Loyolar Popeye 0.4 mg, 1 cap, Route: PO, Drug form: CAP, Daily, Dosing Weight 113.636, kg, Start date: 01/15/12 9:00:00, Duration: 30 day, Stop date: 02/13/12 9:00:00 Yolis Young Plavix 01-14 14:00: 00 No Vinny Chambersison 75 mg, 1 tab, Route: PO, Drug form: TAB, Daily, Dosing Weight 113.636, kg, Start date: 01/15/12 9:00:00, Duration: 30 day, Stop date: 02/13/12 9:00:00 Yolis Young glipiZIDE 5 mg oral tablet 01-14 14:00: 00 No Vinny Chambersison 5 mg, 1 tab, Route: PO, Drug form: TAB, Daily, Dosing Weight 113.636, kg, Start date: 01/15/12 9:00:00, Duration: 30 day, Stop date: 02/13/12 9:00:00 Yolis Young Tylenol 01-14 07:43: 00 No Eliceo Torres 650 mg, 2 tab, Route: PO, Drug form: TAB, Q4H, Dosing Weight 113.636, kg, PRN Pain, Start date: 01/15/12 2:43:00, Duration: 30 day, Stop date: 02/14/12 2:42:00 Yolis Young adenosine 01-14 03:35: 00 No Vinny Chambersison 95.4542 mg, Route: IVP, ONCE, Dosing Weight 113.636, kg, Priority: Routine, Start date: 01/14/12 22:35:00, Stop date: 01/14/12 22:35:00 Yolis Young Dextrose 50% Syringe 01-14 02:51: 00 No Vinny Nye 25 gm, 50 mL, Route: IVP, Drug Form: INJ, Dosing Weight 113.636, kg, PRN, PRN Blood Glucose Results, Start date: 01/14/12 21:51:00, Duration: 30 day, Stop date: 02/13/12 21:50:00 Yolis Yuong glucagon 01-14 02:51: 00 No Vinny Loyolar Popeye 1 mg, Route: IM, Drug form: PDR/INJ, PRN, Dosing Weight 113.636, kg, PRN Blood Glucose Results, Start date: 01/14/12 21:51:00, Duration: 30 day, Stop date: 02/13/12 21:50:00 Yolis Young insulin aspart 01-14 02:51: 00 No Vinny Nye 10 unit, 0.1 mL, Route: SUB-Q, Drug form: SOLN, TID-Before Meals, Dosing Weight 113.636, kg, PRN Blood Glucose Results, Start date: 01/14/12 21:51:00, Duration: 30 day, Stop date: 02/13/12 21:50:00 Yolis Young heparin 01-14 02:00: 00 No Vinny Nye 5,000 unit, 1 mL, Route: SUB-Q, Drug form: INJ, Q12H, Dosing Weight 113.636, kg, Start date: 01/14/12 21:00:00, Duration: 30 day, Stop date: 02/13/12 9:00:00 Yolis Young Saline Flush 0.9% 01-14 02:00: 00 No Vinny Chambersison 5 ml, Route: IVP, Drug Form: INJ, Dosing Weight 113.636, kg, Q12H, Start date: 01/14/12 21:00:00, Duration: 30 day, Stop date: 02/13/12 9:00:00 Yolis Young hydrALAZINE 01-13 23:48: 00 No Reagan Omidvar 20 mg, 1 mL, Route: IVP, Drug form: INJ, Q4H, Dosing Weight 113.636, kg, PRN Hypertensi on, Start date: 01/14/12 18:48:00, Duration: 30 day, Stop date: 02/13/12 18:47:00 Memoria jennifer Young Flomax 0.4 mg oral capsule 01-13 23:23: 49 No Vinny Sudarshan Popeye 0.4 mg, 1 cap, PO, Daily, 30 cap, Substituti on Allowed, CAP Memoria jennifer Young Plavix 75 mg oral tablet 01-13 23:23: 02 No Vinny Sudarshan Popeye 75 mg, 1 tab, PO, Daily, 30 tab, Substituti on Allowed, TAB Memoria jennifer Young metFORmin 1000 mg oral tablet 01-13 23:22: 38 No Vinny Sudarshan Popeye 1,000 mg, 1 tab, PO, BID, 30 tab, Substituti on Allowed Memoria jennifer JacksonHector glipiZIDE 5 mg oral tablet 01-13 23:20: 43 No Vinny Sudarshan Popeye 5 mg, 1 tab, PO, Daily, 30 tab, Substituti on Allowed Memoria jennifer Young clonidine 0.3 mg oral tablet 01-13 23:19: 46 No 0.3 mg, PO, BID, 60 tab, Substituti on Allowed Memoria jennifer Young metoprolol tartrate 01-13 22:03: 00 No Vinny Sudarshan Popeye 50 mg, 1 tab, Route: PO, Drug form: TAB, Q12H, Dosing Weight 113.636, kg, Priority: NOW, Start date: 01/14/12 17:03:00, Duration: 30 day, Stop date: 02/13/12 9:00:00 Memoria jennifer Hector clonidine 0.3 mg oral tablet 01-13 22:00: 00 No Vinny Sudarshan Popeye 0.3 mg, 1 tab, Route: PO, Drug form: TAB, BID, Dosing Weight 113.636, kg, Start date: 01/14/12 17:00:00, Duration: 30 day, Stop date: 02/13/12 9:00:00 Yolis Young Saline Flush 0.9% 01-13 21:52: 00 No Vinny Chambersison 5 ml, Route: IVP, Drug Form: INJ, Dosing Weight 113.636, kg, PRN, PRN Line Flush, Start date: 01/14/12 16:52:00, Duration: 30 day, Stop date: 02/13/12 16:51:00 Yolis Jacksonann nitroglycer in SL Tab 01-13 21:52: 00 No Vinny Chambersison 0.4 mg, 1 tab, Route: SL, Drug form: TAB, Q5Min, Dosing Weight 113.636, kg, PRN Chest Pain, Start date: 01/14/12 16:52:00, Duration: 3 doses or times, Stop date: Limited # of times Yolis Young nitroglycer in 2% ointment 01-13 21:01: 00 No Abbie Sidhu 1 inch, Route: TOP, Drug Form: OINT, Dosing Weight 113.636, kg, ONCE, STAT, Start date: 01/14/12 16:01:00, Stop date: 01/14/12 16:01:00 Yolis Young acetaminoph en 01-13 19:24: 00 No Abbie Sidhu 650 mg, Route: PO, Drug form: TAB, ONCE, Dosing Weight 113.636, kg, Priority: STAT, Start date: 01/14/12 14:24:00, Stop date: 01/14/12 14:24:00 Morenovanessa rodriguez Hector Vasotec 01-13 18:54: 00 No Abbie Sidhu 1.25 mg, 1 mL, Route: IV, Drug form: INJ, ONCE, Dosing Weight 113.636, kg, Start date: 01/14/12 13:54:00, Stop date: 01/14/12 13:54:00 Morenovanessa rodriguez Hector enalaprilat 01-13 18:52: 00 No Chauncey Perkins 1.25 mg, 1 mL, Route: IV, Drug form: INJ, ONCE, Dosing Weight 113.636, kg, Start date: 01/14/12 13:52:00, Stop date: 01/14/12 13:52:00 Yolis Young Sodium Chloride 0.9% (Bolus) IV 500 mL 01-13 17:42: 00 No Abbie Sidhu 500 mL, Rate: 500 ml/hr, Infuse over: 1 hr, Route: IV, kg, Total Volume: 500, Bolus Dose, Priority: STAT, Start date: 01/14/12 12:42:00, Duration: 1 doses or times, Stop date: 01/14/12 13:41:00 Yolis Young magnesium sulfate 01-13 17:42: 00 No Abbie Sidhu 2 gm, 50 mL, Route: IV, Drug form: INJ, ONCE, Dosing Weight 113.636, kg, Priority: STAT, Start date: 01/14/12 12:42:00, Stop date: 01/14/12 12:42:00 Yolis Young ondansetron 01-13 17:14: 00 No Abbie Sidhu 4 mg, Route: IVP, Drug form: INJ, ONCE, Dosing Weight 113.636, kg, Priority: STAT, Start date: 01/14/12 12:14:00, Stop date: 01/14/12 12:14:00 Yolis Young nitroglycer in 100 mg in 250 ml [id number] Premix (titrate) 100 mg 01-13 16:14: 00 No Abbie Sidhu 100 mg, 250 mL, Rate: Titrate, Dosing Weight 113.636, kg, Route: IV, Total Volume: 250, Start @ 10 mcg/min then titrate to pain and maintain SBP 162, Start date: 01/14/12 11:14:00, Duration: 24 hr, Stop date: 01/15/12 11:13:00, Replace Every: 24 hr Yolis Young Saline Flush 0.9% 01-13 16:14: 00 No Abbie Sidhu 5 ml, Route: IVP, Drug Form: INJ, Dosing Weight 113.636, kg, PRN, PRN Line Flush, Start date: 01/14/12 11:14:00, Duration: 24 hr, Stop date: 01/15/12 11:13:00 Yolis Young Metoprolol Tartrate Metoprolol Tartrate No Metoprolol Tartrate Immunizations Ordered Immunization Name Filled Immunization Name Date Status Comments Source COVID-19 Pfizer 12 & Over Vaccination ([facility]) 2021-04-24 00:00:00 Completed COVID-19 Pfizer 12 & Over Vaccination ([facility]) 2021-04-24 00:00:00 Completed COVID-19 Pfizer 12 & Over Vaccination ([facility]) 2021-04-24 00:00:00 Completed pneumococcal 13-valent vaccine 2016-01-25 14:00:00 Completed [facility] influenza virus vaccine, inactivated 2016-01-25 13:58:00 Completed [facility] Influenza, injectable, quadrivalent, preservative free (afluria, fluarix, flulaval, fluzone) 2016-01-25 00:00:00 Completed Pneumococcal Conjugate PCV 13 2016-01-25 00:00:00 Completed Influenza, injectable, quadrivalent, preservative free (afluria, fluarix, flulaval, fluzone) 2016-01-25 00:00:00 Completed Pneumococcal Conjugate PCV 13 2016-01-25 00:00:00 Completed Influenza, injectable, quadrivalent, preservative free (afluria, fluarix, flulaval, fluzone) 2016-01-25 00:00:00 Completed Pneumococcal Conjugate PCV 13 2016-01-25 00:00:00 Completed COVID-19 Pfizer 12 & Over Vaccination ([facility]) Unknown Completed [facility] COVID-19 Pfizer 12 & Over Vaccination ([facility]) Unknown Completed [facility] COVID-19 Pfizer 12 & Over Vaccination ([facility]) Unknown Completed [facility] COVID-19 Pfizer 12 & Over Vaccination ([facility]) Unknown Completed [facility] Influenza, injectable, quadrivalent, preservative free (afluria, fluarix, flulaval, fluzone) Unknown Completed [facility] Pneumococcal Conjugate PCV 13 Unknown Completed [facility] COVID-19 Pfizer 12 & Over Vaccination ([place]) Unknown Completed [facility] Influenza, injectable, quadrivalent, preservative free (afluria, fluarix, flulaval, fluzone) Unknown Completed [facility] Pneumococcal Conjugate PCV 13 Unknown Completed [facility] COVID-19 Pfizer 12 & Over Vaccination ([place]) Unknown Completed [facility] Influenza, injectable, quadrivalent, preservative free (afluria, fluarix, flulaval, fluzone) Unknown Completed [facility] Pneumococcal Conjugate PCV 13 Unknown Completed [facility] COVID-19 Pfizer 12 & Over Vaccination ([place]) Unknown Completed [facility] Influenza, injectable, quadrivalent, preservative free (afluria, fluarix, flulaval, fluzone) Unknown Completed [facility] Pneumococcal Conjugate PCV 13 Unknown Completed [facility] COVID-19 Pfizer 12 & Over Vaccination ([place]) Unknown Completed [facility] Influenza, injectable, quadrivalent, preservative free (afluria, fluarix, flulaval, fluzone) Unknown Completed [facility] Pneumococcal Conjugate PCV 13 Unknown Completed [facility] Vital Signs Vital Name Observation Time Observation Value Comments S our Systolic blood pressure 2024-02-18 14:49:00 168 mm[Hg] [facility] Diastolic blood pressure 2024-02-18 14:49:00 85 mm[Hg] [facility] Heart rate 2024-02-18 14:49:00 54 /min [facility] Body height 2024-02-18 14:38:00 177.8 [facility] Body weight 2024-02-18 14:38:00 105.688 [facility] BMI 2024-02-18 14:38:00 33.43 [facility] height 2024-02-16 13:45:00 70 [in_i] Commo n [facility] weight 2024-02-16 13:45:00 243.6 [lb_av] Co mmon [facility] bmi 2024-02-16 13:45:00 34.95 kg/m2 Comm on [facility] oximetry 2024-02-16 13:45:00 96 % Commo n [facility] respiratory rate 2024-02-16 13:45:00 18 /min Common [facility] blood pressure systolic 2024-02-16 13:45:00 175 mm[Hg] Common [facility] blood pressure diastolic 2024-02-16 13:45:00 82 mm[Hg] [facility] Systolic blood pressure 2024-02-10 16:07:00 149 mm[Hg] [facility] Diastolic blood pressure 2024-02-10 16:07:00 73 mm[Hg] [facility] Heart rate 2024-02-10 16:07:00 60 /min [facility] Body weight 2024-02-10 16:07:00 107[facility]956 [facility] BMI 2024-02-10 16:07:00 34.15 kg/m2 [facility] Systolic blood pressure 2024-02-05 15:05:00 158 mm[Hg] [facility] Diastolic blood pressure 2024-02-05 15:05:00 85 mm[Hg] [facility] Heart rate 2024-02-05 15:05:00 85 /min [facility] Body height 2024-02-05 15:05:00 177.8 cm [facility] Body weight 2024-02-05 15:05:00 108.138 [facility] BMI 2024-02-05 15:05:00 34.21 kg/m2 [facility] Oxygen saturation in Arterial blood by Pulse oximetry 2024-02-05 15:05:00 100 /min [facility] Systolic blood pressure 2023-12-12 16:51:00 116 mm[Hg] [facility] Diastolic blood pressure 2023-12-12 16:51:00 72 mm[Hg] [facility] Heart rate 2023-12-12 16:51:00 76 /min [facility] Body height 2023-12-12 16:51:00 177.8 cm [facility] Body weight 2023-12-12 16:51:00 110.224 [facility] BMI 2023-12-12 16:51:00 34.87 kg/m2 [facility] Oxygen saturation in Arterial blood by Pulse oximetry 2023-12-12 16:51:00 95 /min [facility] Systolic blood pressure 2023-11-26 15:50:00 154 mm[Hg] [facility] Diastolic blood pressure 2023-11-26 15:50:00 92 mm[Hg] [facility] Heart rate 2023-11-26 15:50:00 100 /min [facility] Respiratory rate 2023-11-26 15:47:00 18 /min [facility] Body height 2023-11-26 15:47:00 177.8 cm [facility] Body weight 2023-11-26 15:47:00 108.863 [facility] BMI 2023-11-26 15:47:00 34.44 kg/m2 [facility] Oxygen saturation in Arterial blood by Pulse oximetry 2023-11-26 15:47:00 100 /min [facility] Systolic blood pressure 2023-09-25 15:52:00 108 mm[Hg] [facility] Diastolic blood pressure 2023-09-25 15:52:00 73 mm[Hg] [facility] Heart rate 2023-09-25 15:52:00 96 /min [facility] Respiratory rate 2023-09-25 15:52:00 16 /min [facility] Body height 2023-09-25 15:52:00 177.8 cm [facility] Body weight 2023-09-25 15:52:00 110.043 [facility] BMI 2023-09-25 15:52:00 34.81 kg/m2 [facility] Systolic blood pressure 2023-09-04 19:32:00 110 mm[Hg] [facility] Diastolic blood pressure 2023-09-04 19:32:00 72 mm[Hg] [facility] Heart rate 2023-09-04 19:32:00 84 /min [facility] Respiratory rate 2023-09-04 19:32:00 18 /min [facility] Body height 2023-09-04 19:32:00 177.8 cm [facility] Body weight 2023-09-04 19:32:00 108.319 [facility] BMI 2023-09-04 19:32:00 34.26 kg/m2 [facility] height 2023-08-08 09:15:00 70 [in_i] Commo n [facility] weight 2023-08-08 09:15:00 240.2 [lb_av] Co mmon [facility] temperature 2023-08-08 09:15:00 97.5 [degF] Com mon [facility] bmi 2023-08-08 09:15:00 34.46 kg/m2 Comm on [facility] oximetry 2023-08-08 09:15:00 97 % [facility] respiratory rate 2023-08-08 09:15:00 18 /min [facility] blood pressure systolic 2023-08-08 09:15:00 125 mm[Hg] [facility] blood pressure diastolic 2023-08-08 09:15:00 76 mm[Hg] [facility] Systolic blood pressure 2023-07-31 16:53:00 149 mm[Hg] [facility] Diastolic blood pressure 2023-07-31 16:53:00 91 mm[Hg] [facility] Heart rate 2023-07-31 16:53:00 93 /min [facility] Oxygen saturation in Arterial blood by Pulse oximetry 2023-07-31 16:53:00 97 /min [facility] Body height 2023-07-31 16:52:00 180.3 cm [facility] Body weight 2023-07-31 16:52:00 107.956 [facility] BMI 2023-07-31 16:52:00 33.19 kg/m2 [facility] Systolic blood pressure 2023-04-24 16:59:00 120 mm[Hg] [facility] Diastolic blood pressure 2023-04-24 16:59:00 64 mm[Hg] [facility] Heart rate 2023-04-24 16:59:00 85 /min [facility] Body weight 2023-04-24 16:59:00 109.045 kg [facility] BMI 2023-04-24 16:59:00 33.53 kg/m2 [facility] Systolic blood pressure 2023-04-10 19:24:00 87 mm[Hg] [facility] Diastolic blood pressure 2023-04-10 19:24:00 62 mm[Hg] [facility] Heart rate 2023-04-10 19:24:00 64 /min [facility] Body height 2023-04-10 19:24:00 180.3 cm [facility] Body weight 2023-04-10 19:24:00 108.41 kg [facility] BMI 2023-04-10 19:24:00 33.33 kg/m2 [facility] Systolic blood pressure 2023-01-13 21:18:00 137 mm[Hg] [facility] Diastolic blood pressure 2023-01-13 21:18:00 84 mm[Hg] [facility] Heart rate 2023-01-13 21:18:00 80 /min [facility] Respiratory rate 2023-01-13 21:18:00 18 /min [facility] Body height 2023-01-13 21:18:00 180.3 cm [facility] Body weight 2023-01-13 21:18:00 106.051 [facility] BMI 2023-01-13 21:18:00 32.61 kg/m2 [facility] Oxygen saturation in Arterial blood by Pulse oximetry 2023-01-13 21:18:00 98 /min [facility] height 2022-12-12 15:15:00 70 [in_i] Commo n [facility] weight 2022-12-12 15:15:00 230 [lb_av] Comm on [facility] temperature 2022-12-12 15:15:00 97.9 [degF] Com [facility] bmi 2022-12-12 15:15:00 33 [facility] 2022-12-12 15:15:00 98 [facility] heart rate 2022-12-12 15:15:00 73 /[facility] respiratory rate 2022-12-12 15:15:00 17 /min Common [facility] blood pressure systolic 2022-12-12 15:15:00 115 mm[Hg] Common [facility] blood pressure diastolic 2022-12-12 15:15:00 66 mm[Hg] Common [facility] height 2022-09-11 14:45:00 70 [in_i] Commo n [facility] weight 2022-09-11 14:45:00 234 [lb_av] Comm on [facility] temperature 2022-09-11 14:45:00 97.9 [degF] Com [facility] bmi 2022-09-11 14:45:00 33.57 kg/m2 Comm on [facility] oximetry 2022-09-11 14:45:00 99 % Commo n [facility] heart rate 2022-09-11 14:45:00 68 /min Commo n [facility] respiratory rate 2022-09-11 14:45:00 18 /min Common [facility] blood pressure systolic 2022-09-11 14:45:00 146 mm[Hg] Common [facility] blood pressure diastolic 2022-09-11 14:45:00 68 mm[Hg] [facility] Systolic blood pressure 2021-11-19 16:10:00 131 mm[Hg] [facility] Diastolic blood pressure 2021-11-19 16:10:00 85 mm[Hg] [facility] Heart rate 2021-11-19 16:10:00 76 /min [facility] Respiratory rate 2021-11-19 16:10:00 18 /min [facility] Body weight 2021-11-19 16:10:00 109.045 [facility] BMI 2021-11-19 16:10:00 33.53 kg/m2 [facility] Oxygen saturation in Arterial blood by Pulse oximetry 2021-11-19 16:10:00 99 /min [facility] temperature 2021-07-27 13:00:00 98.1 [degF] Com mon [facility] bmi 2021-07-27 13:00:00 35.44 kg/m2 Comm on [facility] oximetry 2021-07-27 13:00:00 98 % Commo n [facility] heart rate 2021-07-27 13:00:00 72 /min Commo n [facility] respiratory rate 2021-07-27 13:00:00 16 /min [facility] blood pressure systolic 2021-07-27 13:00:00 166 mm[Hg] Common [facility] blood pressure diastolic 2021-07-27 13:00:00 68 mm[Hg] [facility] height 2021-07-27 13:00:00 70 [in_i] Commo n [facility] weight 2021-07-27 13:00:00 247 [lb_av] Comm on [facility] Systolic (mm Hg) 2016-10-13 19:00:00 [facility] Diastolic (mm Hg) 2016-10-13 19:00:00 [facility] Systolic (mm Hg) 2016-10-13 18:00:00 [facility] Diastolic (mm Hg) 2016-10-13 18:00:00 [facility] Systolic (mm Hg) 2016-10-13 17:09:00 [facility] Diastolic (mm Hg) 2016-10-13 17:09:00 [facility] Respitory Rate 2016-10-13 16:00:00 [facility] Temperature Oral (F) 2016-10-13 16:00:00 97.9 F [facility] Respitory Rate 2016-10-13 13:00:00 [facility] Temperature Oral (F) 2016-10-13 12:00:00 99.3 F [facility] Temperature Oral (F) 2016-10-13 09:00:00 97.9 F [facility] Respitory Rate 2016-10-12 22:00:00 [facility] Height 2016-10-06 13:54:00 177.8 cm [facility] Weight 2016-10-06 13:54:00 [facility] BMI Calculated 2016-10-06 13:54:00 [facility] Systolic (mm Hg) 2016-01-25 22:00:00 [facility] Diastolic (mm Hg) 2016-01-25 22:00:00 [facility] Respitory Rate 2016-01-25 22:00:00 [facility] Systolic (mm Hg) 2016-01-25 21:00:00 [facility] Diastolic (mm Hg) 2016-01-25 21:00:00 [facility] Respitory Rate 2016-01-25 21:00:00 [facility] Systolic (mm Hg) 2016-01-25 20:00:00 [facility] Diastolic (mm Hg) 2016-01-25 20:00:00 [facility] Respitory Rate 2016-01-25 20:00:00 [facility] Heart Rate 2016-01-24 11:30:00 [facility] Temperature Oral (F) 2016-01-17 18:11:00 98.1 F [facility] Heart Rate 2016-01-17 18:11:00 [facility] BMI Calculated 2016-01-17 17:29:00 [facility] Weight 2016-01-17 17:29:00 [facility] Height 2016-01-17 17:29:00 180.34 cm [facility] Respitory Rate 2015-11-14 22:30:00 [facility] Systolic (mm Hg) 2015-11-14 22:30:00 [facility] Diastolic (mm Hg) 2015-11-14 22:30:00 [facility] Systolic (mm Hg) 2015-11-14 22:00:00 [facility] Diastolic (mm Hg) 2015-11-14 22:00:00 [facility] Respitory Rate 2015-11-14 22:00:00 [facility] Respitory Rate 2015-11-14 21:30:00 [facility] Systolic (mm Hg) 2015-11-14 21:30:00 [facility] Diastolic (mm Hg) 2015-11-14 21:30:00 [facility] Temperature Oral (F) 2015-11-14 21:00:00 97.3 F [facility] Temperature Oral (F) 2015-11-14 13:00:00 97.6 F [facility] Temperature Oral (F) 2015-11-13 17:00:00 96.9 F [facility] Height 2015-11-06 07:42:00 177.8 cm [facility] Weight 2015-11-06 07:42:00 [facility] BMI Calculated 2015-11-06 07:42:00 [facility] BMI Calculated 2015-11-06 07:30:00 [facility] Weight 2015-11-06 07:30:00 [facility] Height 2015-11-06 07:30:00 177.8 cm [facility] Systolic (mm Hg) 2015-06-11 21:42:00 [facility] Diastolic (mm Hg) 2015-06-11 21:42:00 [facility] Respitory Rate 2015-06-11 21:42:00 [facility] Temperature Oral (F) 2015-06-11 21:42:00 97.2 F [facility] Heart Rate 2015-06-11 21:42:00 [facility] Heart Rate 2015-06-11 18:18:00 [facility] Respitory Rate 2015-06-11 18:18:00 [facility] Systolic (mm Hg) 2015-06-11 18:18:00 [facility] Diastolic (mm Hg) 2015-06-11 18:18:00 [facility] Temperature Oral (F) 2015-06-11 18:18:00 97.9 F [facility] Respitory Rate 2015-06-11 13:22:00 [facility] Systolic (mm Hg) 2015-06-11 13:22:00 [facility] Diastolic (mm Hg) 2015-06-11 13:22:00 [facility] Heart Rate 2015-06-11 13:22:00 [facility] Temperature Oral (F) 2015-06-11 13:22:00 97.2 F [facility] BMI Calculated 2015-06-10 06:42:00 [facility] Height 2015-06-10 06:42:00 177.8 cm [facility] Weight 2015-06-10 06:42:00 [facility] Weight 2015-06-09 23:44:00 [facility] BMI Calculated 2015-06-09 23:44:00 [facility] Height 2015-06-09 23:44:00 177.8 cm [facility] Diastolic (mm Hg) 2012-01-15 23:15:00 [facility] Heart Rate 2012-01-15 23:15:00 [facility] Systolic (mm Hg) 2012-01-15 23:15:00 [facility] Respitory Rate 2012-01-15 23:15:00 [facility] Diastolic (mm Hg) 2012-01-15 22:47:00 [facility] Systolic (mm Hg) 2012-01-15 22:47:00 [facility] Temperature Oral (F) 2012-01-15 22:47:00 98.6 F [facility] Respitory Rate 2012-01-15 22:47:00 [facility] Heart Rate 2012-01-15 22:47:00 [facility] Systolic (mm Hg) 2012-01-15 20:36:00 [facility] Temperature Oral (F) 2012-01-15 20:36:00 97.2 F [facility] Heart Rate 2012-01-15 20:36:00 [facility] Diastolic (mm Hg) 2012-01-15 20:36:00 [facility] Respitory Rate 2012-01-15 20:36:00 [facility] Temperature Oral (F) 2012-01-15 17:15:00 97.8 F [facility] Weight 2012-01-14 15:59:00 [facility] Height 2012-01-14 15:59:00 177.80 cm [facility] Procedures Procedure Date / Time Performed Performing Clinician Source PVR 2024-02-16 00:00:00 Common S [facility] ECG 12-LEAD 2024-02-10 16:23:[facility] 2024-02-10 [facility] 2023-12-12 18:24:30 Shahbaz Stafford [facility] ealth ECG 12-LEAD 2023-11-26 19:26:31 [facility] 12-[facility]AD 2023-09-25 17:56:59 [facility] h ECG 12-LEAD 2023-09-25 17:56:59 [facility] COMPREHENSIVE METABOLIC PANEL 2023-09-04 20[facility]53:00 [facility] 2023-09-04 [facility]53[facility]23-[facility]08 [facility] 2023-08-01 18:17:10 [facility] 12-LEAD 2023-04-24 21:01:41 [facility] ECG 12-LEAD 2023-01-13 23:49:02 Aakash Ferrell [facility] PVR 2022-12-12 00:00:00 Common S [facility] PVR 2022-09-11 00:00:00 Common [facility] ECG 12-LEAD 2021-11-19 16:14:00 Aakash Ferrell [facility] Tonsillectomy 1956-05-05 06:00:00 [facility] Elijah [facility] Laminectomy [facility] [place] [place] Stent placement<sup>1</sup> [facility] Start Date/Time End Date/Time Encounter Type Admission Type Attending Clinicians Care Facility Care Department Encounter ID Source 2023-10-30 08:48:00 Outpatient SHAHBZA STAFFORD [facility] [id number] [facility] 2023-06-09 14:27:01 Outpatient Bárbara Belkys [facility] STL[facility] [id number] [facility] 2022-11-13 10:23:52 Outpatient [facility] [id number] [facility] 2022-08-06 10:34:02 Outpatient Kattegummul a, Alireza STLMLC ST[facility] [id number] [facility] 2021-10-29 14:57:02 Outpatient Kattegummul a, Alireza STLML[facility] ST[facility]ML[facility] [id number] [facility] 2021-08-15 10:27:03 Outpatient Kattegummul a, Alireza STLMLC ST[facility] [id number] [facility] 2021-08-14 16:05:03 Outpatient Kattegummul a, Alireza STLMLC STLMLC [id number] [facility] 2021-07-27 12:10:02 Outpatient Kattegummul a, Alireza STLML[facility] STLMLC [id number] [facility] 2020-11-03 14:00:38 Outpatient SRUENDRA POLLARD [facility] [id number] [facility] 2024-06-22 10:30:00 2024-06-22 10:30:[address] [facility] [id number] [facility] 2024-05-06 15:15:00 2024-05-06 15:15:00 Outpatient MAULIK MENDOZA [facility] [id number] [facility] 2024-03-05 13:40:00 2024-03-05 13:40:00 Outpatient AIMEESHAHBAZ SAINZ [facility] [id number] [facility] 2024-03-05 11:00:00 2024-03-05 11:00:00 Outpatient [facility] [id number] [facility] 2024-02-18 09:40:00 2024-02-18 11:14:[address] [facility] 1.2.840.114 350.1.13.58 9.2.7.2.686 [id number] [facility] 2024-02-18 08:00:00 2024-02-18 10:28:52 Outpatient [facility] [id number] [facility] 2024-02-16 00:00:00 2024-02-16 00:00:00 OFFICE VISIT ESTAB PT LEVEL 3 [facility] STLMLC [id number] [facility] 2024-02-10 11:00:00 2024-02-10 11:43:25 Office Visit Derick Plascencia [facility] 2 1.2.840.114 350.1.13.58 9.2.7.2.686 [id number] [facility] 2024-02-05 10:00:00 2024-02-05 12:28:01 Office Visit Trevor Salinas [facility] [address] 1.2.840.114 350.1.13.58 9.2.7.2.686 [id number] [facility] 2024-01-27 13:37:00 2024-02-01 13:57:00 Inpatient SHAHBAZ STAFFORD [facility] [id number] [facility] 2024-01-08 14:00:00 2024-01-08 14:00:00 Outpatient MAULIK MENDOZA [facility] [id number] [facility] 2023-12-12 13:00:00 2023-12-12 14:37:09 Office Visit Aguilar Valenzuela [facility] [address] 1.2.840.114 350.1.13.58 9.2.7.2.686 [id number] [facility] 2023-12-12 11:40:00 2023-12-12 12:12:12 Office Visit Shahbaz Stafford [facility] [address] 1.2.840.114 350.1.13.58 9.2.7.2.686 [id number] [facility] 2023-11-26 10:40:00 2023-11-26 15:31:22 Office [address] [facility] 1.2.840.114 350.1.13.58 9.2.7.2.686 [id number] [facility] 2023-10-31 13:00:00 2023-10-31 13:00:00 Outpatient AGUILAR VALENZUELA [facility] [id number] [facility] 2023-10-24 14:00:00 2023-10-24 14:00:00 Outpatient SHAHBAZ STAFFORD [facility] [id number] [facility] 2023-09-25 10:40:00 2023-09-25 13:02:[address] [facility] 1.2.840.114 350.1.13.58 9.2.7.2.686 [id number] [facility] 2023-09-17 11:20:00 2023-09-17 11:20:00 Outpatient [facility] [id number] [facility] 2023-09-04 15:30:00 2023-09-04 15:45:00 Office Visit Maulik Mendoza [facility] [address] 1.2.840.114 350.1.13.58 9.2.7.2.686 [id number] [facility] 2023-08-26 08:40:00 2023-08-26 23:59:00 Outpatient AAKASH FERRELL [facility] [id number] [facility] 2023-08-18 08:24:00 2023-08-18 15:15:00 Outpatient KATHY DOMINGUEZ [facility] [id number] [facility] 2023-08-08 00:00:00 2023-08-08 00:00:00 OFFICE VISIT ESTAB PT LEVEL 3 [facility] [id number] [facility] 2023-07-31 11:40:00 2023-07-31 13:38:04 Office Visit [facility] 1..840.114 350.1.13.58 9.2.7.2.686 [id number] [facility] 2023-07-31 10:00:00 2023-07-31 12:28:32 Outpatient [facility] [id number] [facility] 2023-07-24 13:00:00 2023-07-24 13:00:00 Outpatient MAULIK MENDOZA [facility] [id number] [facility] 2023-07-17 11:00:00 2023-07-17 11:00:00 Outpatient KENNY EAGLE [facility] [id number] [facility] 2023-04-24 11:00:00 2023-04-24 12:40:57 Office Visit [facility] 1..840.114 350.1.13.58 9.2.7.2.686 [id number] [facility] 2023-04-24 10:00:00 2023-04-24 12:35:50 Outpatient [facility] [id number] [facility] 2023-04-10 13:45:00 2023-04-10 14:12:35 Office Visit Maulik Mendoza [facility] [address] 1..840.114 350.1.13.58 9.2.7.2.686 [id number] [facility] 2023-04-10 11:40:00 2023-04-10 11:40:00 Outpatient [facility] [id number] [facility] 2023-04-10 10:00:00 2023-04-10 10:00:00 Outpatient [facility] [id number] [facility] 2023-01-13 16:20:00 2023-01-13 17:13:36 Office Visit Aakash Ferrell [facility] [address] 1.2.840.114 350.1.13.58 9.2.7.2.686 [id number] [facility] 2022-12-12 00:00:00 2022-12-12 00:00:00 OFFICE VISIT ESTAB PT LEVEL 3 ST[facility] ST[facility]C [id number] [facility] 2022-09-11 00:00:00 2022-09-11 00:00:00 OFFICE VISIT ESTAB PT LEVEL 3 STLML[facility] ST[facility]MLC [id number] [facility] 2022-03-25 13:40:00 2022-03-25 13:40:00 Outpatient FERRELLAAKASH [facility] [id number] [facility] 2021-11-19 11:00:00 2021-11-19 11:57:59 Office Visit Aakash Ferrell [facility] [address] 1.2.840.114 350.1.13.58 9.2.7.2.686 [id number] [facility] 2021-09-14 00:00:00 2021-09-14 00:00:00 Telephone Danay Navarro Jannine [facility] [address] 1.2.840.114 350.1.13.58 9.2.7.2.686 [id number] [facility] 2021-09-13 00:00:00 2021-09-13 00:00:00 Telephone Danay Navarro Jannine [facility] [address] 1.2.840.114 350.1.13.58 9.2.7.2.686 [id number] [facility] 2021-09-10 00:00:00 2021-09-10 00:00:00 Telephone Danay Navarro Jannine [facility] [address] 1.2.840.114 350.1.13.58 9.2.7.2.686 [id number] [facility] 2021-09-10 00:00:00 2021-09-10 00:00:00 Telephone Danay Navarro Jannine [facility] [address] 1.2.840.114 350.1.13.58 9.2.7.2.686 [id number] [facility] 2021-08-28 13:30:00 2021-08-28 14:00:00 Telephonic Encounter Ghassan Aakash [facility] [address] 1.2.840.114 350.1.13.58 9.2.7.2.686 [id number] [facility] 2021-08-17 00:00:00 2021-08-17 00:00:[address]ie [facility] 1.2.840.114 350.1.13.58 9.2.7.2.686 [id number] [facility] 2021-08-09 16:00:00 2021-08-09 16:40:00 Office Visit Aakash Ferrell [facility] [address] 1.2.840.114 350.1.13.58 9.2.7.2.686 [id number] [facility] 2021-08-09 13:30:00 2021-08-09 14:54:42 Office Visit Maulik Mendoza [facility] [address] 1.2.840.114 350.1.13.58 9.2.7.2.686 [id number] [facility] 2021-08-07 00:00:00 2021-08-07 00:00:00 Telephone Tameka Ramos Marlenis [facility] [address] 1.2.840.114 350.1.13.58 9.2.7.2.686 [id number] [facility] 2021-07-27 00:00:00 2021-07-27 00:00:00 OFFICE VISIT NEW PT LEVEL 3 STLMLC STLMLC [id number] [facility] 2020-11-02 00:00:00 2020-11-02 00:00:00 Telephone Prakash Mack [address] 1.2.840.114 350.1.13.58 9.2.7.2.686 [id number] [facility] 2016-10-06 11:50:00 2016-10-13 18:00:00 Inpatient nullFlavo r [facility] [id number] 2016-03-08 13:08:00 2016-03-09 04:59:00 Outpt Diag Services nullFlavo r [facility] [place] [id number] Yolis Young 2016-01-24 10:54:00 2016-01-26 00:10:00 Inpatient nullFlavo r [facility] [id number] [facility] 2015-11-06 07:18:00 2015-11-15 01:00:00 Inpatient nullFlavo r [facility] [id number] [facility] 2015-06-09 23:43:00 2015-06-11 22:03:00 Inpatient nullFlavo r [facility] [id number] Yolis Young 2012-01-14 13:18:00 2012-01-15 19:00:00 OU nullFlavo r [facility] [id number] Yolis Young Results Test Description Test Time Test Comments Results Resul t Comments Source ECG 12 lead 2024-02-10 16:23:29 Sinus Bradycardia -First degree A-V block Iza = 284-Prominent R(V1) -nonspecific.-Diffu se nonspecific T-abnormality.Low voltage -possible pulmonary disease. ABNORMAL [facility] ECG 12 lead 2023-12-12 18:24:30 Atrial fibrillation -occasional ectopic ventricular beat ?-Nonspecific T-abnormality. ABNORMAL [facility] ECG 12 lead 2023-09-25 17:56:59 Atrial fibrillation Low voltage in limb leads.-Nonspecific T-abnormality. ABNORMAL [facility] [id number] 04:53:00* Test Item Value Reference Range Interpretation Comme nts GLUCOSE (test code = 2345-7) 138 mg/dL 65-99 H ? Fastin g reference interval For someone without known diabetes, a glucosevalue >125 mg/dL indicates that they may havediabetes and this should be confirmed with afollow-up test. UREA NITROGEN (BUN) (test code = 3094-0) 32 mg/dL 7-25 H CREATININE (test code = 2160-0) 2.22 mg/dL 0.70-1.28 H EGFR (test code = 901122164) 31 See_Comment L [Automated message] The system which generated this result transmitted reference range: > OR = 60 mL/min/1.73m2. The reference range was not used to interpret this result as normal/abnormal. BUN/CREATININE RATIO (test code = 3097-3) 14 6-22 SODIUM (test code = 2951-2) 138 mmol/L 135-146 POTASSIUM (test code = 2823-3) 4.5 mmol/L 3.5-5.3 CHLORIDE (test code = 2075-0) 107 mmol/L 98-110 CARBON DIOXIDE (test code = 2027-9) 23 mmol/L 20-32 CALCIUM (test code = 58224-9) 9.3 mg/dL 8.6-10.3 PROTEIN, TOTAL (test code = 2885-2) 6.9 g/dL 6.1-8.1 ALBUMIN (test code = 1751-7) 4.2 g/dL 3.6-5.1 GLOBULIN (test code = 41618-5) 2.7 1.9-3.7 ALBUMIN/GLOBULIN RATIO (test code = 1759-0) 1.6 1.0-2.5 BILIRUBIN, TOTAL (test code = 1975-2) 0.9 mg/dL 0.2-1.2 ALKALINE PHOSPHATASE (test code = 6768-6) 104 U/L 35-144 AST (test code = 1920-8) 13 U/L 10-35 ALT (test code = 1742-6) 13 U/L 9-46 RAC (test code = RAC) Performing Organization Information: ? ?Site ID: [id number] ? ?Name: [facility] ? ?Address: [address] [place] [id number] ? ?Director: CECILIO OLSON MD,PHD. Lab Interpretation (test code = 62442-7) Abnormal [place] [address] [id number] 18:17:10* Test Item Value Reference Range Interpretation Comme nts URBAN (test code = URBAN) Atrial fibrillatio n -frequent ectopic ventricular beats # VECs = 2Low voltage in limb leads.-Nonspecific T-abnormality. ABNORMAL Lab Interpretation (test code = 25566-2) Abnormal [facility] 12 [id number] 21:01:41Atrial fibrillation -Nonspecific T- abnormality.Low voltage -possible pulmonary disease. [facility] Campus[facility]bound[facility] PANEL 2016-10-13 10:11:00* Test Item Value Reference Range Interpretation Comme nts Glucose Lvl (test code = Glucose Lvl) 86 70-99 [id number] 10:11:00* Test Item Value Reference Range Interpretation Comme nts MCH (test code = MCH) 31.5 pg 27.0-31.0 [facility] [id number] 10:27:00* Test Item Value Reference Range Interpretation Comme nts eGFR (test code = eGFR) 37 [id number] 10:27:00* Test Item Value Reference Range Interpretation Comme nts Eosinophils (test code = Eosinophils) 4.5 See_Comment [Automated messa ge] The system which generated this result transmitted reference range: <=4.0. The reference range was not used to interpret this result as normal/abnormal. [facility] CenterKexfwomOZHNNYHZGTQH3459-15-40 09:07:00* Test Item Value Reference Range Interpretation Comme nts Potassium Lvl (test code = P otassium Lvl) 3.9 3.5-5.1 [facility] HospitalVfnqnibSXMTVEJKXG9412-43-24 09:07:00* Test Item Value Reference Range Interpretation Comme nts Hgb (test code = Hgb) 11.3 14.0-18.0 [facility] [id number] 09:33:00* Test Item Value Reference Range Interpretation Comme nts Phosphorus (test code = Phosphorus) 3.5 2.5-4.5 [facility] [id number] 05:59:00* Test Item Value Reference Range Interpretation Comme nts Antibody Scrn (test code = Antibody Scrn) Negative (10/09/16 12:59 AM) [facility] [employer] [id number] 05:59:00* Test Item Value Reference Range Interpretation Comme nts Troponin-I (test code = Troponin-I) 0.02 See_Comment [Automated messa ge] The system which generated this result transmitted reference range: <=0.40. The reference range was not used to interpret this result as normal/abnormal. [facility] [employer] [id number] 05:59:00* Test Item Value Reference Range Interpretation Comme nts Magnesium Lvl (test code = M agnesium Lvl) 2.5 1.8-2.4 [facility] [employer] [id number] 02:41:00* Test Item Value Reference Range Interpretation Comme nts Troponin-I (test code = Troponin-I) 0.02 See_Comment [Automated messa ge] The system which generated this result transmitted reference range: <=0.40. The reference range was not used to interpret this result as normal/abnormal. [facility] GetSocialPARATHYROID [id number] 22:24:00* Test Item Value Reference Range Interpretation Comme nts Ca Norm WB (test code = Ca Norm WB) 1.05 1.05-1.25 [facility] [employer]SocialCHEM [id number] 07:59:00* Test Item Value Reference Range Interpretation Comme nts Phosphorus (test code = Phosphorus) 3.2 2.5-4.5 [facility] [employer]ATHYROID [id number] 06:42:00* Test Item Value Reference Range Interpretation Comme nts Ca Norm WB (test code = Ca Norm WB) 1.14 1.05-1.25 [facility] FullscreenAC [id number] 20:35:00* Test Item Value Reference Range Interpretation Comme nts Troponin-I (test code = Troponin-I) 0.05 See_Comment [Automated messa ge] The system which generated this result transmitted reference range: <=0.40. The reference range was not used to interpret this result as normal/abnormal. [facility] [employer] [id number] 13:19:00* Test Item Value Reference Range Interpretation Comme nts BNP (test code = BNP) 569 [facility] CenterNubimetricsCHEM [id number] 13:19:00* Test Item Value Reference Range Interpretation Comme nts Albumin Lvl (test code = Albumin Lvl) 3.8 3.5-5.0 [facility]evilleKomnqfcSPPEZCBJHW1803-50-14 13:19:00* Test Item Value Reference Range Interpretation Comme nts PTT (test code = PTT) 33.9 s 22.9-35.8 [facility] BeevilleCARDIAC [id number] 00:34:13* Test Item Value Reference Range Interpretation Comme nts BNP (test code = BNP) 533 [facility] CenterMinitrade [id number] 20:40:00* Test Item Value Reference Range Interpretation Comme nts Calcium Lvl (test code = Calcium Lvl) 8.3 8.5-10.5 [facility] CenterZtnuxppYSLJSBYLENAU5194-33-92 22:52:00* Test Item Value Reference Range Interpretation Comme nts AGAP (test code = AGAP) 11.1 10.0-20.0 [facility]YslagdrGGDTVZFQFC3370-32-08 22:52:00* Test Item Value Reference Range Interpretation Comme nts Basophils (test code = Basophils) 1.0 See_Comment [Automated [employer] ge] The system which generated this result transmitted reference range: <=1.0. The reference range was not used to interpret this result as normal/abnormal. [facility]evilleBACTERIAL - [id number] 21:19:00* Test Item Value Reference Range Interpretation Comme nts MRSA by PCR (test code = MRSA by PCR) Negative (01/24/16 4:19 PM) [facility] BeevilleTrunk ClubOOD BANK [id number] 16:02:00* Test Item Value Reference Range Interpretation Comme nts RBC product (test code = RBC product) Product available 1(01/24/16 11:02 AM) [facility]JispbhkBNOZHPCUSQGF5288-86-12 12:19:00* Test Item Value Reference Range Interpretation Comme nts Potassium Lvl (test code = P otassium Lvl) 3.0 3.5-5.1 [facility] HospitalUyzhfufBAESLJFGJF4920-99-71 12:19:00* Test Item Value Reference Range Interpretation Comme nts INR (test code = INR) 1.28 0.85-1.17 [facility] [employer] [id number] 17:50:00* Test Item Value Reference Range Interpretation Comme nts Antibody Scrn (test code = Antibody Scrn) Negative (01/17/16 12:50 PM) [facility] CenterSzlaolbNCBOYLNULHGC4881-13-58 17:50:00* Test Item Value Reference Range Interpretation Comme nts AGAP (test code = AGAP) 10.2 10.0-20.0 [facility] BeevilleLitpvdiMWKWKBUYMI6103-03-26 17:50:00* Test Item Value Reference Range Interpretation Comme nts PTT (test code = PTT) 50.2 s 22.9-35.8 [facility] GetSocialCHEM [id number] 07:45:00* Test Item Value Reference Range Interpretation Comme nts Phosphorus (test code = Phosphorus) 3.7 2.5-4.5 [facility] CenterKbjwlcsXPYUGTXYIJMI9934-11-95 07:45:00* Test Item Value Reference Range Interpretation Comme nts AGAP (test code = AGAP) 12.2 10.0-20.0 [facility] BeevilleWqdyywkHAIKYVTKQC1983-95-73 07:45:00* Test Item Value Reference Range Interpretation Comme nts PTT (test code = PTT) 33.2 s 22.9-35.8 [facility] BeevillePARATHYROID [id number] 07:45:00* Test Item Value Reference Range Interpretation Comme nts Ca Ion WB (test code = Ca Ion WB) 1.14 1.05-1.25 [facility] BeevilleURINE [id number] 15:28:00* Test Item Value Reference Range Interpretation Comme nts U Eos (test code = U Eos) None Seen (11/13/15 10:28 AM) [facility] [employer] [id number] 09:56:00* Test Item Value Reference Range Interpretation Comme nts Antibody Scrn (test code = Antibody Scrn) Negative (11/13/15 4:56 AM) [facility] [employer] [id number] 09:56:00* Test Item Value Reference Range Interpretation Comme nts Magnesium Lvl (test code = M agnesium Lvl) 2.3 1.8-2.4 [facility] CenterMugibzlLLEMJZWGYZLK3948-91-41 09:56:00* Test Item Value Reference Range Interpretation Comme nts AGAP (test code = AGAP) 14.1 10.0-20.0 [facility] CenterQsmstrqKTGMVQOFNI9963-20-67 09:56:00* Test Item Value Reference Range Interpretation Comme nts Segs-Bands # (test code = Segs-Bands #) 7.2 1.5-8.1 [facility] CenterannPARATHYROID [id number] 09:56:00* Test Item Value Reference Range Interpretation Comme nts Ca Ion WB (test code = Ca Ion WB) 1.06 1.05-1.25 [facility] CenterannURINE [id number] 21:39:00* Test Item Value Reference Range Interpretation Comme nts U Chloride (test code = U Chloride) 87 [facility] BeevilleMOLECULAR [id number] 19:52:00* Test Item Value Reference Range Interpretation Comme nts C difficile DNA (test code = C difficile DNA) Negative (11/12/15 2:52 PM) [facility] CenterannCHEM [id number] 07:59:00* Test Item Value Reference Range Interpretation Comme nts eGFR (test code = eGFR) 25 [facility] CenterFtdugdpQRDAOJXIQM8944-46-60 07:59:00* Test Item Value Reference Range Interpretation Comme nts PTT (test code = PTT) 32.6 s 22.9-35.8 [facility] CenterannPARATHYROID [id number] 07:59:00* Test Item Value Reference Range Interpretation Comme nts Ca Norm WB (test code = Ca Norm WB) 1.08 1.05-1.25 [facility] CenterannCARDIAC [id number] 07:23:00* Test Item Value Reference Range Interpretation Comme nts Total CK (test code = Total CK) 63 12-191 [facility] FxmjyxyHPRMCRQOG6229-00-00 07:23:00* Test Item Value Reference Range Interpretation Comme nts Myoglobin (test code = Myoglobin) 122 25-72 [facility] HermannCARDIAC [id number] 06:46:00* Test Item Value Reference Range Interpretation Comme nts CK MB (test code = CK MB) 7.2 0.5-3.6 [facility] CenterannCARDIAC [id number] 23:07:00* Test Item Value Reference Range Interpretation Comme nts CK MB Index (test code = CK MB Index) 8.7 See_Comment [Automated m essage] The system which generated this result transmitted reference range: <=2.5. The reference range was not used to interpret this result as normal/abnormal. [facility] CenterWpusjwaKYAMNHWSX0543-52-45 23:07:00* Test Item Value Reference Range Interpretation Comme nts Myoglobin (test code = Myoglobin) 139 25-72 [facility] CenterannCARDIAC [id number] 18:02:00* Test Item Value Reference Range Interpretation Comme nts CK MB (test code = CK MB) 10.0 0.5-3.6 [facility] HihannwVPTUWQYTL9609-92-37 18:02:00* Test Item Value Reference Range Interpretation Comme nts Myoglobin (test code = Myoglobin) 190 25-72 [facility] BeevilleBLOOD BANK [id number] 07:01:00* Test Item Value Reference Range Interpretation Comme nts Antibody Scrn (test code = Antibody Scrn) Negative (11/09/15 2:01 AM) [facility] CenterannCHEM [id number] 07:34:00* Test Item Value Reference Range Interpretation Comme nts Globulin (test code = Globulin) 3.6 2.0-4.0 [facility] CenterLufdiocXNWFSUEMAL8324-69-44 07:34:00* Test Item Value Reference Range Interpretation Comme nts Vanco Lvl (test code = Vanco Lvl) 22.3 [facility]annCHEM [id number] 09:02:00* Test Item Value Reference Range Interpretation Comme nts Alk Phos (test code = Alk Phos) 73 39-136 [facility] CenterInokuvgJZXZWBSDAA0229-07-57 09:02:00* Test Item Value Reference Range Interpretation Comme nts Vanco Lvl (test code = Vanco Lvl) 7.7 [facility] CenterannURINE [id number] 17:16:00* Test Item Value Reference Range Interpretation Comme nts U Protein (test code = U Protein) 35.8 [facility] CenterannURINE AND [id number] 10:36:00* Test Item Value Reference Range Interpretation Comme nts UA WBC (test code = UA WBC) no gt See_Comment [Automated messa ge] The system which generated this result transmitted reference range: <=5. The reference range was not used to interpret this result as normal/abnormal. [facility] CenterBbsuxrbUMCLXA4615-02-36 10:23:00* Test Item Value Reference Range Interpretation Comme nts HDL (test code = HDL) 32 [facility] BeevilleBACTERIAL - [id number] 07:36:00* Test Item Value Reference Range Interpretation Comme nts MRSA by PCR (test code = MRSA by PCR) Negative (11/06/15 2:36 AM) [facility]evilleBLOOD BANK [id number] 07:36:00* Test Item Value Reference Range Interpretation Comme nts ABO/Rh (test code = ABO/Rh) O POS [facility] BeevilleCHEM [id number] 07:36:00* Test Item Value Reference Range Interpretation Comme nts Lactic Acid Lvl (test code = Lactic Acid Lvl) 1.1 0.5-2.2 [facility] BeevilleSPECIAL [id number] 07:36:00* Test Item Value Reference Range Interpretation Comme nts Hgb A1C (test code = Hgb A1C) 5.8 [facility] CenterDththegPWZJPPLWGPNS0575-31-52 16:15:00* Test Item Value Reference Range Interpretation Comme nts AGAP (test code = AGAP) 11.7 10.0-20.0 [facility] BeevilleHdtqumzKUQXOTIZYK1599-65-93 16:15:00* Test Item Value Reference Range Interpretation Comme nts Monocytes # (test code = Monocytes #) 0.6 See_Comment [Automated messa ge] The system which generated this result transmitted reference range: <=0.8. The reference range was not used to interpret this result as normal/abnormal. [facility] CenterCldqtocDZAYTDWHXH9205-32-40 10:52:00* Test Item Value Reference Range Interpretation Comme nts INR (test code = INR) 1.15 0.85-1.17 [facility] BeevilleCHEM [id number] 08:01:00* Test Item Value Reference Range Interpretation Comme nts Creatinine Lvl (test code = Creatinine Lvl) 1.09 0.50-1.40 [facility] BeevilleZgwkmmrEWQJWICDGZ6670-83-75 08:01:00* Test Item Value Reference Range Interpretation Comme nts Hct (test code = Hct) 39.9 42.0-54.0 [facility] BeevilleUrjosvtJAMAIC7879-51-72 08:01:00* Test Item Value Reference Range Interpretation Comme nts VLDL (test code = VLDL) 35 [facility] BeevilleSPECIAL [id number] 08:01:00* Test Item Value Reference Range Interpretation Comme nts Hgb A1C (test code = Hgb A1C) 6.9 [facility] AND [id number] 08:01:00* Test Item Value Reference Range Interpretation Comme nts UA Urobilinogen (test code = UA Urobilinogen) <=1.0 mg/dL 0.1-1.0 [facility] BeevilleDRUG [id number] 04:52:00* Test Item Value Reference Range Interpretation Comme nts U Cannab Scr (test code = U Cannab Scr) Negative *NA*(06/09/15 10:52 PM) [facility] AND [id number] 01:49:00* Test Item Value Reference Range Interpretation Comme nts UA Bacteria (test code = UA Bacteria) Rare [facility] BeevilleCARDIAC [id number] 00:33:00* Test Item Value Reference Range Interpretation Comme nts Troponin-I (test code = Troponin-I) no gt See_Comment [Automated messa ge] The system which generated this result transmitted reference range: <=0.40. The reference range was not used to interpret this result as normal/abnormal. [facility] BeevilleCHEM [id number] 00:33:00* Test Item Value Reference Range Interpretation Comme nts Bili Indirect (test code = Bili Indirect) 0.4 See_Comment [Automated message] The system which generated this result transmitted reference range: <=1.0. The reference range was not used to interpret this result as normal/abnormal. [facility] BeevilleShenyfuHBORHPABKZ3484-35-83 00:33:00* Test Item Value Reference Range Interpretation Comme nts PTT (test code = PTT) 26.6 s 22.9-35.8 [facility] BeevilleDlijocsSKIFEU3736-94-73 00:33:00* Test Item Value Reference Range Interpretation Comme nts LDL (Calculated) (test code = LDL (Calculated)) 16 [facility] [id number] 17:42:00* Test Item Value Reference Range Interpretation Comme nts Gluc POC Lifscn (test code = Gluc POC Lifscn) 215 70-99 H [facility] GLUCOSE [id number] 11:33:00* Test Item Value Reference Range Interpretation Comme nts Gluc POC Lifscn (test code = Gluc POC Lifscn) 148 70-99 H [facility] TaylorMjccccuGPNTQOBKG8279-25-41 08:05:00* Test Item Value Reference Range Interpretation Comme nts Troponin-I (test code = Troponin-I) no gt See_Comment N [Automated messa ge] The system which generated this result transmitted reference range: <=0.40. The reference range was not used to interpret this result as normal/abnormal. [facility] TaylorLcneiwcUPBEZYPCI2879-67-09 01:52:00* Test Item Value Reference Range Interpretation Comme nts CK MB (test code = CK MB) 1.7 0.5-3.6 N [facility] GLUCOSE [id number] 00:07:00* Test Item Value Reference Range Interpretation Comme nts Gluc POC Lifscn (test code = Gluc POC Lifscn) 105 70-99 H [facility] TaylorDlqrqynWFRTNYWFI3003-02-87 16:16:00* Test Item Value Reference Range Interpretation Comme nts Magnesium Lvl (test code = M agnesium Lvl) 1.5 1.8-2.4 L [facility] BeevilleQtcmyjbRICTTGRNIT4356-73-06 16:16:00* Test Item Value Reference Range Interpretation Comme nts Monocytes # (test code = Monocytes #) 0.5 See_Comment N [Automated messa ge] The system which generated this result transmitted reference range: <=0.8. The reference range was not used to interpret this result as normal/abnormal. [facility] BeevilleHuktfdoJIFRLNUMTO3165-26-93 16:16:00* Test Item Value Reference Range Interpretation Comme nts CDC-HIV 1/2 Ab (test code = CDC-HIV 1/2 Ab) Negative *NA*(01/14/2012 11:16:00) [facility] Notes Date/Time Note Provider Source 2024-02-10 11:00:00 Addended by: DEVIN YOU on: 2024 08:55 AM Modules accepted: Orders Devin You MA [facility]
[2024-03-24 18:06] LABS: Absolute Basophils 0.1 K/uL (0-0.5); Absolute Eosinophils 0.4 K/uL (0-0.5); Absolute Lymphocytes (CBC) 0.5 K/uL (0.7-4.9); Absolute Monocytes 0.5 K/uL (0.1-1.3); Absolute Neutrophil 7.4 K/uL (1.8-8.0); Basophils % 0.9 % (0-1.3); Eosinophils % 4.2 % (0-4.4); Hematocrit 28.8 % (39.6-49.0); Hemoglobin 9.7 g/dL (13.6-17.9); Lymphocytes % 5.4 % (15.3-44.8); MCH 33.9 pg (27.0-35.0); MCHC 33.7 g/dL (32.0-36.0); MCV 100.5 fL (80-100); MPV 8.3 fL (7.6-11.3); Monocytes % 5.9 % (3.3-12.3); Neutrophils % 83.6 % (41.7-73.7); Platelets 195 thou/uL (152-406); RBC Red Blood Cell Count 2.86 M/uL (4.33-5.43); Red Cell Distribution Width 17.2 % (12.1-15.2)
[2024-03-24] MEDS ORDERED: GLUCAGON 1 MG/VIAL ONE ×2 (19:09→19:19)
--- NOTE | 2024-03-24 20:04 | EDPHYS ---
Physician Documentation [facility] Name: Frank Shaw Age: 74 yrs Sex: Male : 1950 Arrival Date: 03/24/2024 Time: 16:41 Bed 5 Private MD: ED Physician Nathanael Cooper HPI: 03/24 17:14 This 74 yrs old Male presents to ER via EMS with complaints of Low Blood Sugar. rn 17:14 Onset: The symptoms/episode began/occurred today. Current symptoms: In the emergency rn department the patient's symptoms have resolved. The patient has not experienced similar symptoms in the past. Patient reports is diabetic, takes glimepiride, skips lunch normally, was at work and began to feel lightheaded and generalized weakness. No fever or chills. No recent illness. No chest pain or shortness of breath. No abdominal pain or vomiting. Glucose was in the 50s, given D10 and now patient back to baseline, glucose 160s now.. Historical: - Allergies: 16:52 Robaxin; rs5 16:52 Methocarbamol; rs5 16:52 statins; rs5 - PMHx: 16:52 Atrial fibrillation; Atrial fibrillation; CAD; CHF; COPD; CVA; diabetes mellitus; rs5 Hearing Loss with hearing aids; Hernia; Hypertensive disorder; Left lung Pneumothorax; Myocardial infarction; Renal Disease; Sleep Apnea; TIA; - PSHx: 16:52 back sx; Heart Stents; rs5 - Immunization history:: Adult Immunizations up to date. - Infectious Disease History:: Denies. - Social history:: Smoking status: Patient denies any tobacco usage or history of. - Family history:: not pertinent. - Hospitalizations: : No recent hospitalization is reported. ROS: 17:14 Constitutional: Negative for fever, chills, and weight loss, Cardiovascular: Negative rn for chest pain, palpitations, and edema, Respiratory: Negative for shortness of breath, cough, wheezing, and pleuritic chest pain, Abdomen/GI: Negative for abdominal pain, nausea, vomiting, diarrhea, and constipation, MS/Extremity: Negative for injury and deformity, Skin: Negative for injury, rash, and discoloration, Neuro: Negative for headache, weakness, numbness, tingling, and seizure, Exam: 17:14 Constitutional: This is a well developed, well nourished patient who is awake, alert, rn and in no acute distress. Head/Face: Normocephalic, atraumatic. ENT: Moist mucous membranes Cardiovascular: Regular rate and rhythm. No pulse deficits. Respiratory: No increased work of breathing, no retractions or nasal flaring. Abdomen/GI: Soft, non-tender MS/ Extremity: Pulses equal, no cyanosis. Neurovascular intact. Full, normal range of motion. Equal circumference. Neuro: Awake and alert, GCS 15, oriented to person, place, time, and situation. Cranial nerves II-XII grossly intact. Motor strength 5/5 in all extremities. Sensory grossly intact. Cerebellar exam normal. Vital Signs: 16:46 BP 150 / 67; Pulse 71; Resp 17; Pulse Ox 99% on R/A; rs5 17:20 BP 156 / 68; Pulse 74; Resp 17; Pulse Ox 99% on R/A; rs5 18:15 BP 164 / 78; Pulse 77; Resp 17; Pulse Ox 99% on R/A; rs5 19:58 BP 174 / 68; Pulse 56; Resp 16; Pulse Ox 100% on R/A; jb4 MDM: 16:46 Medical Screening Exam initiated rn 19:12 ED course: Patient feels much better, back to baseline. Creatinine is elevated compared rn to baseline, I recommended admission to hospital, daughter stated "we will not be doing that here, we will go home and follow-up with his doctor". Repeat glucose obtained and shows 40. Will give glucagon and oral glucose and reevaluate as patient and family member want to go home as opposed to being admitted. They understand the risk of going home with worsening renal function and hypoglycemia.. 19:45 Differential diagnosis: hypoglycemic episode, Acute kidney injury. Data reviewed: vital rn signs, nurses notes, lab test result(s). Care significantly affected by the following chronic conditions: Diabetes, Chronic Kidney Disease. Counseling: I had a detailed discussion with the patient and/or guardian regarding the historical points, exam findings, and any diagnostic results supporting the discharge/admit diagnosis, lab results. Response to treatment: the patient's symptoms have markedly improved after treatment. ED course: Patient feels much better. Sitting in bed using cell phone with legs crossed. States "ready to go home". Patient had a sandwich and juice and states has a rotisserie chicken waiting for him at home. Still does not want to be observed in the hospital. Plans on going home and following up with his private doctor. Return precautions given and understood.. 03/24 17:06 Order name: CBC with Diff; Complete Time: 18:08 rn 03/24 17:06 Order name: Basic Metabolic Panel; Complete Time: 18:08 rn 03/24 17:09 Order name: Glucose, Ancillary Testing; Complete Time: 18:08 EDMS 03/24 19:11 Order name: Glucose, Ancillary Testing; Complete Time: 19:12 EDMS 03/24 20:06 Order name: Glucose, Ancillary Testing EDMS 03/24 17:06 Order name: IV Start; Complete Time: 17:25 rn 03/24 17:06 Order name: Glucose Level; Complete Time: 17:18 rn 03/24 17:06 Order name: EKG - Nurse/Tech; Complete Time: 17:25 rn 03/24 17:06 Order name: Cardiac monitoring; Complete Time: 17:25 rn 03/24 17:06 Order name: O2 Sat Monitoring; Complete Time: 17:21 rn 03/24 19:02 Order name: PO challenge; Complete Time: 19:03 rn Administered Medications: 19:23 Drug: Glucagon IVP 1 mg IVP once Route: IVP; Site: right hand; [facility] 20:07 Follow up: Response: Blood sugar is elevated jb4 Disposition Summary: 03/24/24 20:03 Discharge Ordered Notes: Location: Home rn Problem: new rn Symptoms: have improved rn Condition: Stable rn Diagnosis - Hypoglycemia, unspecified rn Followup: rn - With: Private Physician - When: As needed - Reason: Recheck today's complaints, Re-evaluation by your physician Discharge Instructions: - Discharge Summary Sheet rn - Hypoglycemia rn - Acute Kidney Injury, Adult rn Forms: - Medication Reconciliation Form rn - Antibiotic government affairs specialist - Prescription Opioid Use rn - Patient Portal Instructions rn - Leadership Thank You Letter rn Signatures: Dispatcher [employer] Nathanael Young MD MD rn Bryson, James RN RN jb4 Alan Landers, RN RN rs5 Corrections: (The following items were deleted from the chart) 17:07 17:06 CBC+H.LAB.BRZ ordered. EDMS EDMS 17:07 17:06 BASIC METABOLIC PANEL+C.LAB.BRZ ordered. EDMS EDMS
--- NOTE | 2024-03-24 20:04 | ER ---
Nurse's Notes [facility] Name: Frank Shaw Age: 74 yrs Sex: Male : 1950 Arrival Date: 03/24/2024 Time: 16:41 Bed 5 Private MD: Diagnosis: Hypoglycemia, unspecified Presentation: 03/24 16:46 Chief complaint: EMS states: Pt toned out EMS for low blood sugars and dizziness, blood rs5 sugar readings in 50's on arrival, D10W in 250 adm, latest blood sugar readings 120's 10 min prior to arrival. Coronavirus screen: At this time, the client does not indicate any symptoms associated with coronavirus-19. Ebola Screen: No symptoms or risks identified at this time. Initial Sepsis Screen: Does the patient meet any 2 criteria? No. Patient's initial sepsis screen is negative. Does the patient have a suspected source of infection? No. Patient's initial sepsis screen is negative. Risk Assessment: Do you want to hurt yourself or someone else? Patient reports no desire to harm self or others. Onset of symptoms was March 24, 2024. Care prior to arrival: Medication(s) given: D10W in 250 adm IV initiated. 20 GA, in the right hand. 16:46 Method Of Arrival: EMS: [facility] rs5 16:46 Acuity: AGUS 3 rs5 Historical: - Allergies: 16:52 Robaxin; rs5 16:52 Methocarbamol; rs5 16:52 statins; rs5 - PMHx: 16:52 Atrial fibrillation; Atrial fibrillation; CAD; CHF; COPD; CVA; diabetes mellitus; rs5 Hearing Loss with hearing aids; Hernia; Hypertensive disorder; Left lung Pneumothorax; Myocardial infarction; Renal Disease; Sleep Apnea; TIA; - PSHx: 16:52 back sx; Heart Stents; rs5 - Immunization history:: Adult Immunizations up to date. - Infectious Disease History:: Denies. - Social history:: Smoking status: Patient denies any tobacco usage or history of. - Family history:: not pertinent. - Hospitalizations: : No recent hospitalization is reported. Screenin:47 [facility] ED Fall Risk Assessment (Adult) History of falling in the last 3 months, rs5 including since admission No falls in past 3 months (0 pts) Confusion or Disorientation No (0 pts) Intoxicated or Sedated No (0 pts) Impaired Gait No (0 pts) Mobility Assist Device Used No (0 pt) Altered Elimination No (0 pt) Score/Fall Risk Level 0 - 2 = Low Risk Oriented to surroundings, Maintained a safe environment. 16:47 Abuse screen: Denies threats or abuse. Nutritional screening: No deficits noted. rs5 Tuberculosis screening: No symptoms or risk factors identified. Assessment: 16:47 General: Appears in no apparent distress. comfortable, Behavior is calm, cooperative. rs5 Pain: Denies pain. Neuro: Level of Consciousness is awake, alert, obeys commands, Oriented to person, place. Cardiovascular: Patient's skin is warm and dry. Respiratory: Airway is patent Respiratory effort is even, unlabored, Respiratory pattern is regular, symmetrical. GI: Abdomen is round non-distended, Abd is soft and non tender X 4 quads. : No signs and/or symptoms were reported regarding the genitourinary system. EENT: No signs and/or symptoms were reported regarding the EENT system. Derm: Skin is intact, Skin is pink, warm \\T\\ dry. Musculoskeletal: Range of motion: intact in all extremities. 17:20 Reassessment: Patient and/or family updated on plan of care and expected duration. Pain rs5 level reassessed. Patient is alert, oriented x 3, equal unlabored respirations, skin warm/dry/pink. 18:15 Reassessment: Patient and/or family updated on plan of care and expected duration. Pain rs5 level reassessed. Patient is alert, oriented x 3, equal unlabored respirations, skin warm/dry/pink. 18:45 Reassessment: Patient and/or family updated on plan of care and expected duration. Pain rs5 level reassessed. Patient is alert, oriented x 3, equal unlabored respirations, skin warm/dry/pink. 19:02 Reassessment: Patient appears in no apparent distress at this time. Patient and/or jb4 family updated on plan of care and expected duration. Pain level reassessed. Patient is alert, oriented x 3, equal unlabored respirations, skin warm/dry/pink. Pt BGL 40, provider notified. Pt is asymptomatic at this time. Given 2 orange juice and a sandwich per providers instructions. 19:58 Reassessment: Patient appears in no apparent distress at this time. Patient and/or jb4 family updated on plan of care and expected duration. Pain level reassessed. Patient is alert, oriented x 3, equal unlabored respirations, skin warm/dry/pink. BGL increased to 82. Pt states " That's good enough, I'm going home.". Vital Signs: 16:46 BP 150 / 67; Pulse 71; Resp 17; Pulse Ox 99% on R/A; rs5 17:20 BP 156 / 68; Pulse 74; Resp 17; Pulse Ox 99% on R/A; rs5 18:15 BP 164 / 78; Pulse 77; Resp 17; Pulse Ox 99% on R/A; rs5 19:58 BP 174 / 68; Pulse 56; Resp 16; Pulse Ox 100% on R/A; jb4 ED Course: 16:45 Patient arrived in ED. rs5 16:46 Nathanael Cooper MD is Attending Physician. rn 16:47 Patient has correct armband on for positive identification. Placed in gown. Bed in low rs5 position. Call light in reach. Side rails up X2. 16:47 No provider procedures requiring assistance completed. rs5 16:52 Triage completed. rs5 17:19 Alan Landers, RN is Primary Nurse. rs5 17:25 Basic Metabolic Panel Sent. jb4 17:25 CBC with Diff Sent. jb4 19:58 Provided Education on: discharge instructions.. jb4 19:58 IV discontinued, intact, bleeding controlled, No redness/swelling at site. Pressure jb4 dressing applied. Administered Medications: 19:23 Drug: Glucagon IVP 1 mg IVP once Route: IVP; Site: right hand; jb4 20:07 Follow up: Response: Blood sugar is elevated jb4 Medication: 16:54 VIS not applicable for this client. rs5 Outcome: 20:03 Discharge ordered by . rn 20:06 Discharged to home ambulatory, jb4 20:06 Condition: stable 20:06 Discharge instructions given to patient, family, Instructed on discharge instructions, follow up and referral plans. Demonstrated understanding of instructions, follow-up care, 20:07 Patient left the ED. jb4 Signatures: Nathanael Cooper MD MD rn Bryson, James, RN RN jb Alan Landers, TRENT NEWMAN rs5
[2024-03-24 20:14] VITALS: BP 174/68; O2SAT 100
--- NOTE | 2024-03-25 11:00 | EKG ---
Test Date: 2024-03-24 Test Time: 17:26:10 Watch Inspector Final Movement: TIMOTEO MEASUREMENT RESULTS: Intervals: Rate: 54 IA: 244 QRSD: 120 QT: 512 QTc: 485 [place]: P: 69 IA: 244 QRS: -2 T: -14 INTERPRETIVE STATEMENTS: Sinus bradycardia with 1st degree AV block Otherwise normal ECG Compared to ECG 07/29/2023 08:36:25 First degree AV block now present Atrial fibrillation no longer present Right-axis deviation no longer present T-wave abnormality no longer present Electronically Signed On 03-25-24 11:00:23 PARACHUTE SUPERVISOR by Chaka Espinal
== END 2024-03-24 20:07 | disposition home or self-care (01) ==
LOC: ER 16:41
DX: E11.649 Type 2 diabetes mellitus with hypoglycemia without coma (principal); I10 Essential (primary) hypertension; I48.91 Unspecified atrial fibrillation; I50.9 Heart failure, unspecified; J44.9 Chronic obstructive pulmonary disease, unspecified; Z95.818 Presence of other cardiac implants and grafts
CPT/HCPCS: 93005; 85025; 80048; 36415; 82947 ×3; 96374; 99284; J1610

== ENCOUNTER 2024-04-01 23:59 | Emergency (ER) | payer OTHER ==
--- OUTSIDE RECORDS SUMMARY | 2024-04-02 00:07 | XMS REPORT | Continuity of Care Document ---
Author Name Unknown Address [address] [facility] [address] [place] [address] [facility] Address [address] [facility] 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 Name Role Phone [phone] Primary Care Physician Unavailab le SIL STAFFORD Attending Clinician Unavailable Belkys Granger Attending Clinician Unavailable Alireza Gomez Attending Clinician Unavaila SURENDRA Barton Attending Clinician Unavailable TOÑITO PLASCENCIA Attending Clinician Unavail able MAULIK MENDOZA Attending Clinician Unavailable SIL STAFFORD Attending Clinician Unavailable Eagle Cox APRN Attending Clinician [phone] Trevor Salinas APRN Attending Clinician [phone] Aguilar Valenzuela MD Attending Clinician AAKASH FERRELL Attending Clinician Unav JESSIKA Campuzano Attending Clinician Aakash Riley MD Attending Clinician [phone] Ramon NEWMAN, Danay Attending Clinician Kaylyn Hanley RN, Magda Attending Clinician Tameka Rodríguez MA Attending Clinician Danny Hamm MD, Prakash Attending Clinician [phone] MAGGIEABSIL Admitting Clinician Unavailable Payers Payer Name Policy Type Policy Number Effective Date Expirati on Date Source [employer] HMO [id number] 2020 00:00:00 2020 00:00:00 Problems Condition Name Condition Details Condition Category Status Onset Date Resolution Date Last Treatment Date Treating Clinician Comments Source Abdominal aortic aneurysm (AAA) without rupture Abdominal aortic aneurysm (AAA) without rupture Disease Active 2023-05 0 00:00: 00 [facility] Chronic obstructiv e pulmonary disease with acute exacerbati on Chronic obstructiv e pulmonary disease with acute exacerbati on Disease Active 2023-05 0- 00:00: 00 [facility] Acute renal failure Acute renal failure Disease Active 2023-05 0 00:00: 00 [facility] Benign localized prostatic hyperplasi a with lower urinary tract symptoms (LUTS) Benign localized prostatic hyperplasi a with lower urinary tract symptoms (LUTS) Disease Active 2023-05 0 00:00: 00 [facility] Congestive heart failure Congestive heart failure Disease Active 2023-05 0- 00:00: 00 [facility] Diverticul itis Diverticul itis Disease Active 2023-05 0- 00:00: 00 [facility] 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 Disease Active 2023-05 0- 00:00: 00 [facility] Non-ST elevation (NSTEMI) myocardial infarction Non-ST elevation (NSTEMI) myocardial infarction Disease Active 2023-05 0- 00:00: 00 [facility] Transient ischemic attack Transient ischemic attack Disease Active 2023-05 0-08 00:00: 00 [facility] 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) 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) Disease Active 2023-05 0-04 00:00: 00 [facility] Coronary artery disease involving [place] coronary artery of [place] heart without angina pectoris Coronary artery disease involving [place] coronary artery of [place] heart without angina pectoris Disease Active 2023-05 0-04 00:00: 00 [facility] Chronic systolic heart failure Chronic systolic heart failure Disease Active 2023-05 0-04 00:00: 00 [facility] Severe aortic stenosis Severe aortic stenosis Disease Active 8 00:00: 00 [facility] CKD (chronic kidney disease) stage 4, GFR 15-29 ml/min CKD (chronic kidney disease) stage 4, GFR 15-29 ml/min Disease Active 8- 00:00: 00 [facility] Nonrheumat ic aortic (valve) stenosis Nonrheumat ic aortic (valve) stenosis Disease Active 12-11 00:00: 00 [facility] 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 Disease Active 08-17 00:00: 00 [facility] Basal cell carcinoma of face Basal cell carcinoma of face Disease Active 2017-05 00:00: 00 [facility] Hypertensi on Hypertensi on Disease Active 10-23 00:00: 00 [facility] PNEUMOTHOR AX PNEUMOTHOR AX Active 10/06/2016 [facility] Diagnosis Active 10-06 00:00: 00 2016-10-15 22:01:00 Yolis Young UNK UNK Active 01/03/2016 [facility] Active 01-02 00:00: 00 2016-01-25 11:14:00 Yolis Young Hyperlipid emia Hyperlipid emia Disease Active 01-02 00:00: 00 [facility] INFRARENAL AORTIC ANEURYSM INFRARENAL AORTIC ANEURYSM Active 11/06/2015 [facility] Diagnosis Active 11-05 00:00: 00 2015-11-15 20:54:00 Yolis Young ACS (acute coronary syndrome) ACS (acute coronary syndrome) Disease Active 3- 00:00: 00 [facility] TIA, AF, IC ATHEROSCLE ROSIS TIA, AF, IC ATHEROSCLE ROSIS Active 06/09/2015 [facility] Diagnosis Active 2 00:00: 00 2015-06-15 09:30:00 Yolis Young TIA TIA Active 6 [facility] Diagnosis Active 06-09 00:00: 00 2015-06-09 18:53:00 Yolis Young Atrial fibrillati on with RVR Atrial fibrillati on with RVR Disease Active 05-22 00:00: 00 [facility] Diabetes type 2, controlled Diabetes type 2, controlled Disease Active 05-22 00:00: 00 [facility] ACS R/O ACS R/O Active 01/14/2012 [facility] Diagnosis Active 01-13 00:00: 00 2012-01-14 14:46:00 Yolis Young CHEST PAIN CHEST PAIN Active 01/14/2012 [facility] Diagnosis Active 01-13 00:00: 00 2012-01-14 14:45:00 Yolis Young [id number] Orchitis, left Problem Active [facility] [id number] Upper respirator y tract infection, unspecifie d type Problem Active [facility] [id number] Cough Problem Active [facility] Atrial fibrillati on (disorder) Atrial fibrillati on (disorder) Resolved Problem 10/16/2016 [facility] QUOC [place] Problem Resolve d 2016-10-16 00:08:43 Yolis Young Smoker (finding) Smoker (finding) Resolved Problem 10/16/2016 [facility] OPID [place] Problem Resolve d 2016-10-16 00:08:43 Yolis Young Tinnitus (finding) Tinnitus (finding) Resolved Problem 10/16/2016 [facility] OPID [place] Problem Resolve d 2016-10-16 00:08:43 Yolis Young Chest pain Chest pain Active Problem 01/17/2012 [facility] Problem Active 2012-01-17 09:08:08 Yolis Young Atheroscle rosis of coronary artery (disorder) Atheroscle rosis of coronary artery (disorder) Active Problem 10/16/2016 [facility] OPID [place] Problem Active 2016-10-16 00:08:43 Yolis Young Chest pain (finding) Chest pain (finding) Active Problem 10/16/2016 [facility] QUOC [place] Problem Active 2016-10-16 00:08:43 Yolis Young Diabetes mellitus (disorder) Diabetes mellitus (disorder) Active Problem 10/16/2016 [facility]OC [place] Problem Active 2016-10-16 00:08:43 Yolis Young Hearing loss (finding) Hearing loss (finding) Active Problem 10/16/2016 [facility]OC [place] Problem Active 2016-10-16 00:08:43 Yolis Young Serum creatinine raised (finding) Serum creatinine raised (finding) Active Problem 10/16/2016 [facility] [place] Problem Active 2016-10-16 00:08:43 Yolis Young Sleep apnea (finding) Sleep apnea (finding) Active Problem 10/16/2016 [facility] [place] Problem Active 2016-10-16 00:08:43 Yolis Young CORONARY ARTERY ANOMALY CORONARY ARTERY ANOMALY Active [facility] Diagnosis Active 2012-01-14 14:46:00 Yolis Young TRANSIENT CEREBRAL ISCHEMIC ATTACK, UNSP TRANSIENT CEREBRAL ISCHEMIC ATTACK, UNSP Active [facility] Diagnosis Active 2015-06-15 09:30:00 Yolis Young ILLNESS, UNSPECIFIE D ILLNESS, UNSPECIFIE D Active [facility] Diagnosis Active 2015-11-15 20:54:00 Yolis Young ABDOMINAL AORTIC ANEURYSM, WITHOUT RUPTU ABDOMINAL AORTIC ANEURYSM, WITHOUT RUPTU Active [facility] Diagnosis Active 2016-01-25 11:14:00 Yolis Young Allergies, Adverse Reactions, Alerts Allergy Name Allergy Type Status Severity Reaction(s) Onset Date Inactive Date Treating Clinician Comments Source Statins Allergy to substanc e Active 08-09 00:00: 00 [facility] Statins Allergy to substanc e Active Unknown 07-24 00:00: 00 Other Reaction( s): Nausea/Vo miting [facility] Robaxin Robaxin Active Yolis Young statins statins Active Yolis Young Social History Social Habit Start Date Stop Date Quantity Comments Source Sex Assigned At [facility] Sexual orientation [facility] History of tobacco use Cigarette Smoker [facility] History of Social function 2024-02-18 00:00:00 2024-02-18 00:00:00 [facility] Alcoholic beverage intake 2024-02-18 00:00:00 2024-02-18 00:00:00 Ex-drinker (finding) [facility] Tobacco use and exposure 2023-04-24 00:00:00 2023-04-24 00:00:00 Smokeless tobacco non-user [facility] Alcohol Comment 2023-04-24 00:00:00 2023-04-24 00:00:00 quitted 15 years ago [facility] Exposure to SARS-CoV-2 (event) 2021-11-09 00:00:00 2021-11-19 11:01:00 Not sure [facility] Smoking Status Start Date Stop Date Source Smokes tobacco daily 2023-04-24 00:00:00 [facility] Tobacco smoking consumption unknown [facility] Social History 2016-10-06 23:40:51 Roberth Stanton Medications Ordered Medication Name Filled Medication Name Start Date Stop Date Current Medication? Ordering Clinician Indication Dosage Frequency Signature (SIG) Comments Components Source Mometasone Furo-Formot madeline Fum (Dulera) 50-5 MCG/ACT aerosol 2023-05 09:46: 56 Yes Inhale. [facility] nitroglycer in (Nitrostat) 0.4 MG SL tablet 2023-05 00:00: [id number] 1 tablet (0.4 mg total) under the tongue every 5 (five) minutes if needed for chest pain. [facility] isosorbide mononitrate 20 MG tablet 2023-05 00:00: 00 02-09 00:00 :00 No [id number] 20mg QD Take 1 tablet (20 mg total) by mouth 1 (one) time each day. [facility] empaglifloz in (Jardiance) 10 MG 2023-05 00:00: 00 02-09 00:00 :00 No [id number] 10mg QD Take 1 tablet (10 mg total) by mouth 1 (one) time each day. [facility] Aspirin Low Dose 81 MG EC tablet 01-30 00:00: 00 Yes 81mg QD Take 81 mg by mouth 1 (one) time each day. [facility] amiodarone (Pacerone) 200 MG tablet 2024-0 9-28 00:00: 00 Yes 200mg QD Take 200 mg by mouth 1 (one) time each day. Taking 1/2 daily [facility] cetirizine (ZyrTEC) 10 MG tablet 8-30 00:00: 00 Yes 10mg QD Take 10 mg by mouth 1 (one) time each day. [facility] amLODIPine (Norvasc) 10 MG tablet -19 00:00: 00 Yes 10mg QD Take 10 mg by mouth 1 (one) time each day. [facility] Fluticasone -Umeclidin- Vilant (Trelegy Ellipta) 100-62.5-25 MCG/ACT aerosol powder 09-24 10:55: 16 Yes 944 1{puff} QD Inhale 1 puff 1 (one) time each day. [facility] Repatha SureClick 140 MG/ML solution auto-inject or 09-24 00:00: 00 Yes [id number] 140mg Q14D Inject 140 mg under the skin every 14 (fourteen) days. [facility] Repatha SureClick 140 MG/ML solution auto-inject or -15 00:00: 00 09-24 00:00 :00 No 140mg Q14D Inject 140 mg under the skin every 14 (fourteen) days. [facility] finasteride (Proscar) 5 MG tablet 05 00:00: 00 Yes 1 (one) time each day at the same time. [facility] ciprofloxac in (Cipro) 500 MG tablet 07-30 12:02: 23 07-30 00:00 :00 No Q.5D Take by mouth 2 (two) times a day. [facility] nitroglycer in (Nitrostat) 0.4 MG SL tablet 07-30 12:00: [address] 0.4 mg under the tongue every 5 (five) minutes if needed for chest pain. [facility] levalbutero l (Xopenex) 1.25 MG/3ML nebulizer solution 07-21 00:00: 00 02-09 00:00 :00 No [facility] nitroglycer in (Nitrostat) 0.4 MG SL tablet 2022-05 11:14: 15 Yes [facility] ciprofloxac in (Cipro) 500 MG tablet 2022-05 11:14: 15 Yes Q.5D Take by mouth 2 (two) times a day. [facility] metoprolol succinate XL (Toprol-XL) 50 MG 24 hr tablet 2022-05 00:00: 00 Yes [id number] 50mg QD Take 1 tablet (50 mg total) by mouth 1 (one) time each day. [facility] cetirizine (ZyrTEC) 10 MG tablet 2022-05 00:00: 00 Yes 10mg QD Take 10 mg by mouth 1 (one) time each day. [facility] fluticasone (Flonase) 50 MCG/ACT nasal spray 2022-05 00:00: 00 Yes 1{spray } QD 1 spray 1 (one) time each day. [facility] albuterol 108 (90 Base) MCG/ACT inhaler 2022-05 00:00: 00 02-09 00:00 :00 No 1{puff} Q6H 1 puff every 6 (six) hours if needed. [facility] metoprolol succinate XL (Toprol-XL) 50 MG 24 hr tablet 2022-05 00:00: 00 04-24 00:00 :00 No 50mg Q.5D Take 50 mg by mouth in the morning and 50 mg before bedtime. [facility] nitroglycer in (Nitrostat) 0.4 MG SL tablet 01-13 16:25: 28 Yes [facility] ciprofloxac in (Cipro) 500 MG tablet 01-13 16:19: 12 Yes Q.5D Take by mouth 2 (two) times a day. [facility] oseltamivir (Tamiflu) 75 MG capsule 5-04 00:00: 00 09-11 04:59 :00 No 75mg Q12H Take 75 mg by mouth every 12 (twelve) hours. [facility] mupirocin (Bactroban) 2 % ointment 3-30 00:00: 00 Yes 1{appli cation} Q.[id number] 3D Apply 1 applicatio n topically in the morning and 1 applicatio n at noon and 1 applicatio n in the evening. APPLY TO AFFECTED AREA 3 TIMES A DAY FOR 10 DAYS. [facility] losartan (Cozaar) 50 MG tablet -12 00:00: 00 02-09 00:00 :00 No [id number] 50mg Q.5D Take 1 tablet (50 mg total) by mouth in the morning and 1 tablet (50 mg total) in the evening. [facility] nitroglycer in (Nitrostat) 0.4 MG SL tablet 11-19 11:09: 41 Yes [facility] ciprofloxac in (Cipro) 500 MG tablet 11-19 11:09: 41 Yes Q.5D Take by mouth 2 (two) times a day. [facility] losartan (Cozaar) 100 MG tablet 09-10 00:00: 00 Yes [id number] 100mg QD Take 1 tablet (100 mg total) by mouth 1 (one) time each day. [facility] technetium Tc-99m sestamibi (Cardiolite ) radio-isoto pe injection 18-45 millicurie 08-23 15:58: [address] [place] [address] technetium Tc-99m sestamibi (Cardiolite ) radio-isoto pe injection 18-45 millicurie 08-23 15:58: [address] [place] [address] technetium Tc-99m sestamibi (Cardiolite ) radio-isoto pe injection 8-18 millicurie -19 19:51: [address] [place] [address] technetium Tc-99m sestamibi (Cardiolite ) radio-isoto pe injection 8-18 millicurie 19 19:51: [address] [place] [address] ciprofloxac in (Cipro) 500 MG tablet 08-09 16:25: 32 Yes Q.5D Take by mouth 2 (two) times a day. [facility] nitroglycer in (Nitrostat) 0.4 MG SL tablet 08-09 16:25: 32 02-04 00:00 :[address] 0.4 mg under the tongue every 5 (five) minutes if needed for chest pain. [facility] furosemide (Lasix) 40 MG tablet 08-09 00:00: 00 Yes [id number] 40mg QD Take 1 tablet (40 mg total) by mouth 1 (one) time each day. [facility] losartan (Cozaar) 50 MG tablet 08-09 00:00: 00 09-10 00:00 :00 No [id number] 50mg QD Take 1 tablet (50 mg total) by mouth 1 (one) time each day. [facility] tamsulosin (Flomax) 0.4 MG 24 hr capsule 07-27 00:00: 00 Yes .4mg QD Take 0.4 mg by mouth 1 (one) time each day. TAKE 1 CAPSULE BY MOUTH EVERY DAY FOR 30 DAYS [facility] metoprolol tartrate (Lopressor) 50 MG tablet 07-08 00:00: 00 04-24 00:00 :00 No 50mg Q.5D Take 50 mg by mouth 2 (two) times a day. [facility] montelukast (Singulair) 10 MG tablet 05-31 00:00: 00 Yes 10mg Take 10 mg by mouth 1 (one) time each day in the morning. [facility] Xarelto 20 MG tablet 05-31 00:00: 00 Yes 20mg Take 20 mg by mouth every night. [facility] NIFEdipine XL (Procardia XL) 60 MG 24 hr tablet 05-31 00:00: 00 02-05 00:00 :00 No 60mg Take 60 mg by mouth 1 (one) time each day if needed. [facility] isosorbide mononitrate 20 MG tablet 05-31 00:00: 00 02-04 00:00 :00 No 20mg Take 20 mg by mouth 1 (one) time each day in the morning. [facility] glimepiride (Amaryl) 1 MG tablet 05-26 00:00: 00 Yes 1mg Take 1 mg by mouth 1 (one) time each day in the morning. [facility] Kenalog (Triamcinol one) Kenalog (Triamcinol one) 2017-05 00:00: 00 No 40mg [facility] Cardura 10-14 02:00: 00 No [...] date: 11/10/16 12:00:00 CDT Yolis Young sennosides, FDC 10-11 22:00: 00 No Notes: (Same as: Ashlie) Yolis Young Magnesium Oxide 10-11 21:21: 00 No 800 mg, Route: PO, PRN, Dosing Weight 105.9, kg, PRN Abnormal Lab Result, For NON-ICU Patients Only., Start date: 10/11/16 16:21:00 CDT, Duration: 30 day, Stop date: 11/10/16 16:20:00 CDT Memvanessa Jacksonann Magnesium Sulfate 10-11 21:21: 00 No 1 gm, Route: IVPB, PRN, Dosing Weight 105.9, kg, PRN Abnormal Lab Result, For NON-ICU Patients Only., Start date: 10/11/16 16:21:00 CDT, Duration: 30 day, Stop date: 11/10/16 16:20:00 CDT Memvanessa l Knox sodium phosphate 10-11 21:21: 00 No 30 [...] date: 11/10/16 16:20:00 CDT Memvanessa l Hector potassium phosphate 10-11 21:21: 00 No 30 mmol, Route: IVPB, PRN, Dosing Weight 105.9, kg, PRN Abnormal Lab Result, For NON-ICU Patients Only., Start date: 10/11/16 16:21:00 CDT, Duration: 30 day, Stop date: 11/10/16 16:20:00 CDT Memoria l Knox potassium phosphate-s odium phosphate 250 mg-280 mg-160 mg oral powder for reconstitut ion 10-11 21:21: 00 No 2 pkt, Route: PO, Dosing Weight 105.9, kg, PRN, PRN Abnormal Lab Result, For NON-ICU Patients Only, Start date: 10/11/16 16:21:00 CDT, Duration: 30 day, Stop date: 11/10/16 16:20:00 CDT Yolis Young potassium chloride 10-11 21:21: 00 No 10 mEq, Route: IVPB, PRN, Dosing Weight 105.9, kg, PRN Abnormal Lab Result, For NON-ICU Patients Only, Start date: 10/11/16 16:21:00 CDT, Duration: 30 day, Stop date: 11/10/16 16:20:00 CDT Yolis oYung Isolyte S (PH 7.4) 500 mL 500 [...] Dilaudid) conc = 0.5 mg/ml 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: ;Delay: ;Basal: Yolis Young Naloxone 10-09 16:42: 00 No Notes: Same as Narcan Memoria jennifer Young neostigmine (ANES) 10-09 16:32: 00 No Route: IV, Drug form: INJ, ONCE, Stop date: 10/09/16 11:32:00 CDT Memvanessa Young glycopyrrol ate (ANES) 10-09 16:32: 00 No Route: IV, Drug form: INJ, ONCE, Stop date: 10/09/16 11:32:00 CDT Memoria jennifer Young Ondansetron 10-09 16:31: 00 No Notes: (Same as: Ankita) MEDICATION WASTE Product Size: 4 mg Product Wasted: _0__ mg Memvanessa Young Naloxone 10-09 16:31: 00 No Notes: Same as Narcan Memvanessa Young Flumazenil 10-09 16:31: 00 No Notes: (Same as: Romazicon) Memoria jennifer Young Fentanyl 10-09 16:31: 00 No Notes: (Same as: Sublimaze) Preservati ve free. Memvanessa Young ondansetron (MATTYS) 10-09 16:03: 00 No Route: IV, Drug form: INJ, ONCE, Stop date: 10/09/16 11:03:00 CDT Memvanessa Young acetaminoph en (ANES) (ANES) 10-09 15:29: 00 No Route: IV, Drug form: INJ, Start date: 10/09/16 10:29:00 CDT, Stop date: 10/09/16 11:29:00 CDT Memoria jennifer Young norepinephr ine (ANES) 10-09 14:28: 00 No Route: IV, Drug form: INJ, ONCE, Stop date: 10/09/16 9:28:00 CDT Memoria jennifer Young cisatracuri um (ANES) 10-09 14:18: 00 No Route: IV, Drug form: INJ, ONCE, Stop date: 10/09/16 9:18:00 CDT Memoria jennifer Young midazolam ([facility]) 10-09 14:13: 00 No Route: IV, Drug form: SOLN, ONCE, Stop date: 10/09/16 9:13:00 CDT Yolis Young lidocaine ([facility]) 10-09 14:13: 00 No Route: IV, Drug form: INJ, ONCE, Stop date: 10/09/16 9:13:00 CDT Yolis Young propofol ([facility]) 10-09 14:13: 00 No Route: IV, Drug form: INJ, ONCE, Stop date: 10/09/16 9:13:00 CDT Yolis Young ceFAZolin ([facility]) 10-09 14:08: 00 No Route: IV, Drug form: INJ, ONCE, Stop date: 10/09/16 9:08:00 CDT Yolis Young fentaNYL ([facility]) 10-09 14:08: 00 No Route: IV, Drug [...] Young Isolyte S (PH 7.4) 1000 mL ([facility]) 10-09 13:10: 00 No Route: IV, Total [...] 10-09 01:48: 00 No Notes: (Same as: Ankita) MEDICATION [...] / Hydrocodone Bitartrate 5 MG Oral Tablet [Baker 5/325] 10-07 23:00: 00 No Notes: (Same as: [place] 325/5) Do not exceed 4gm/day of acetaminop [...] / Hydrocodone Bitartrate 5 MG Oral Tablet [[facility] 5/325] 10-07 19:53: 00 No Notes: (Same as: [place] 325/5) Do not exceed 4gm/day of acetaminop [...] Notes: (Same as: Mag-Ox 400) Magnesium oxide 121vj=550m g elemental magnesium Dose=____m g magnesium oxide (___mg elemental magnesium) Yolis Jacksonann Magnesium Sulfate 10-07 10:45: 00 No Notes: WASTE: F/P - Sink; E - Municipal Trash [employer] Yolis Young Calcium Gluconate 10-07 10:45: 00 No Notes: WASTE: F/P - Sink; E - [employer] Trash [employer] Yolis Young potassium chloride 10-07 10:45: 00 No Notes: (Same as: Potassium Chloride) Yolis Jacksonann sodium phosphate + sodium chloride 0.9% INJ 250 mL 10-07 10:45: 00 No 15 mmol, 5 mL, Route: IVPB, PRN, Dosing Weight 105.9, kg, PRN Abnormal Lab Result, Start date: 10/07/16 5:45:00 CDT, Duration: 30 day, Stop date: 11/06/16 5:44:00 CDT, FOR ICU USE ONLY Yolis jennifer Young potassium phosphate + sodium chloride 0.9% [...] s. Mix w/2.5oz water and stir. Yolis Young Hydralazine 10-07 09:00: 00 No Notes: (Same as: Apresoline ) Push over 5 minutes Yolis Young Hydralazine 10-07 07:52: 00 No Notes: (Same [...] 30 day, Stop date: 11/05/16 17:00:00 CDT Yolis Young metoprolol tartrate 10-06 22:08: 00 No Notes: (Same as: Lopressor) Yolis Young 24 HR Nifedipine 60 MG Extended Release Tablet 10-06 18:23: 00 No Notes: (Same as: Adalat CC, Procardia XL) Give on empty stomach. Take 1 hour before or 2 hours after meal; "Avoid grapefruit and grapefruit juice". Do not crush Yolis Young Labetalol 10-06 18:16: 00 No 10 mg, Route: IV, ONCE, Dosing Weight 105.9, kg, Start date: 10/06/16 13:16:00 CDT, Stop date: 10/06/16 13:16:00 CDT Yolis Young Glucagon 10-06 15:22: 00 No 1 mg, [...] No Notes: (Same as:MORPhin e Sulfate) Yolis Jacksonann metoprolol tartrate 01-25 02:00: 00 No Notes: (Same as: Lopressor) Yolis rodriguez Hector Nifedipine 20 MG Oral Capsule 01-24 22:27: 00 No Notes: (Same as: Adalat, Procardia) "Avoid grapefruit and grapefruit juice Yolis Young influenza virus vaccine, inactivated 01-24 14:00: 00 No Notes: (Same as: Fluzone Quadrivale nt, Fluarix Quadrivale nt) For 3 years of age and older (0.5 mL IM) Shake well before use Yolis Young Streptococc us pneumoniae serotype 1 capsular antigen diphtheria [id number] protein conjugate vaccine / Streptococc us pneumoniae serotype 14 capsular antigen diphtheria [id number] protein conjugate vaccine / Streptococc us pneumoniae [...] 30 day, Stop date: 02/23/16 14:20:00 CDT Yolis Young Ketorolac 01-23 19:21: 00 No 30 mg, Route: IVP, ONCE, Dosing Weight 115.045, kg, Start date: 01/24/16 14:21:00 CDT, Duration: 1 doses or times, Stop date: 01/24/16 14:21:00 CDT Morenovanessa jennifer Young Hydromorpho ne 01-23 19:21: 00 No 0.5 mg, Route: IVP, Q5Min, Dosing Weight 115.045, kg, PRN Pain Score 7-10, Start date: 01/24/16 14:21:00 CDT, Duration: 4 doses or times, Stop date: Limited # of times Yolis jennifer Knox Fentanyl 01-23 19:21: 00 No 25 microgram, Route: IVP, Q5Min, Dosing Weight 115.045, kg, PRN Pain Score 4-6, Start date: 01/24/16 14:21:00 CDT, Duration: 4 doses or times, Stop date: Limited # of times Yolis Young glycopyrrol ate (ANES) 01-23 19:00: 00 No Route: IV, Drug form: INJ, ONCE, Stop date: 01/24/16 14:00:00 CDT Yolis Young neostigmine (ANES) 01-23 19:00: 00 No [...] Tylenol with Codeine # 3) Yolis Young Morphine 01-23 18:52: 00 No Notes: (Same as:MORPhin e Sulfate) [facility] jennifer [facility] rocuronium (ANES) 01-23 18:37: 00 No Route: [...] CDT, Stop date: 01/24/16 14:34:00 CDT [facility] midazolam (ANES) 01-23 18:32: 00 No Route: IV, Drug form: SOLN, ONCE, Stop date: 01/24/16 13:32:00 CDT [facility] fentaNYL (ANES) 01-23 18:32: 00 No Route: IV, Drug form: INJ, ONCE, Stop date: 01/24/16 13:32:00 CDT [facility] ondansetron (ANES) 01-23 18:32: 00 No Route: IV, Drug form: INJ, ONCE, Stop date: 01/24/16 13:32:00 CDT [facility] heparin (ANES) 01-23 18:32: 00 No Route: IV, Drug form: INJ, ONCE, Stop date: 01/24/16 13:32:00 CDT [facility] acetaminoph en (ANES) (ANES) 01-23 18:26: 00 No Route: IV, Drug form: INJ, Start date: 01/24/16 13:26:00 CDT, Stop date: 01/24/16 14:26:00 CDT [facility] sodium bicarbonate (ANES) (ANES) 01-23 18:19: 00 No Route: IV, Drug form: INJ, Start date: 01/24/16 13:19:00 CDT, Stop date: 01/24/16 14:19:00 CDT Yolis Young LR 1000 mL INJ (ANES) 01-23 18:09: [...] 12:42:00 CDT, Stop date: 01/24/16 13:42:00 CDT Yolis Young sodium chloride 0.9% 1000 ml INJ (ANES) 01-23 17:22: 00 No Route: IV, Total Volume: 1,000, Start date: 01/24/16 12:22:00 CDT, Stop date: 01/24/16 13:22:00 CDT Yolis Young Acetylcyste ine 200 MG/ML Inhalant Solution 01-23 12:14: 00 No Notes: send to Yolis Young Ancef 01-16 17:00: 00 No Notes: Same as: Ancef Yolis Young Vancomycin 01-16 17:00: 00 No 2001 [...] # 60 tab, 0 Refill(s) Yolis Young 24 HR Nicotine 0.875 MG/HR Transdermal Patch [Nicoderm C-Q] 11-13 20:53: 00 Yes = 1 patch, TOP, Daily, X 7 day, # 7 patch, 0 Refill(s) Morenovanessa jennifer Hector doxazosin 2 mg oral tablet 11-13 20:53: [...] PO, Daily, # 30 tab, 1 Refill(s) Yolis Young Flonase 0.05 mg/inh nasal spray 11-13 [...] Yes 500 mg = 1 tab, PO, [id number], # 11 tab, 0 Refill(s) Yolis Young [...] from ____Date Yolis Young Dextrose 50% Syringe 11-13 02:24: 00 No [...] Stop date: 12/13/15 21:23:00 CDT Yolis Young senna 8.6 mg oral tablet 11-12 17:00: 00 No Notes: (Same as: Senokot) Yolis Young Lactulose 667 MG/ML Oral Solution 11-12 17:00: 00 No Notes: (Same as:Chronul ac) Morenovanessa jennifer [facility] Dulcolax Laxative 11-12 14:00: 00 No Notes: (Same As: Dulcolax, Bisco-Lax) Yolis rodriguez Hector Milk of Magnesia 11-11 23:16: 00 No Notes: (Same as: Milk of Magnesia, MOM) Yolis Young Reglan 11-11 23:16: 00 No Notes: (Same as: Reglan) Yolis Young Lasix 11-11 16:43: 00 No Notes: (Same as: Lasix) Yolis Young Magnesium Oxide 11-11 11:43: 00 No Notes: (Same as: Mag-Ox 400) Magnesium oxide 812es=467p g elemental magnesium Dose=____m g magnesium oxide (___mg elemental magnesium) Yolis Young Simethicone 11-10 23:00: 00 No Notes: (Same as: Mylicon) Yolis Young heparin sodium, porcine 2500 UNT/ML Injectable Solution 11-10 21:00: 00 No Notes: porcine heparin Yolis Young Flonase 0.05 mg/inh nasal spray 11-10 16:11: 00 No Notes: (Same as: Flonase) Yolis Young Protonix 11-10 14:00: 00 No Notes: For IV push reconstitu te with 10 ml 0.9% sodium chloride and push over 2 minutes. (Same as: Protonix) Yolis rodriguez Hector metoprolol tartrate 11-10 11:35: 00 No Notes: [...] times, Stop date: 11/11/15 1:12:00 CDT Yolis jennifer Young Morphine 11-10 06:11: 00 No Notes: (Same as:MORPhin e Sulfate) Yolis Young Metoprolol 11-10 03:02: 00 No Notes: (Same as: Lopressor) Push over 2 minutes Morenovanessa rodriguez Hector potassium chloride 11-10 02:49: 00 No Notes: (Same as: KCL) Infuse no faster than 10 mEq/hr if given peripheral ly. Yolis jennifer Young Zofran 11-10 01:02: 00 No Notes: (Same as: Zofran) MEDICATION WASTE Product Size: 4 mg Product Wasted: __0_ mg Yolis jennifer Hector Maalox Advanced Regular Strength SUSP 11-09 23:05: 00 No Notes: (aluminum hydroxide- magnesium hyd-simeth icone 200-200-20 mg/5ml 30 ml ud SIN) Yolis Young Acetylcyste ine 200 MG/ML Inhalant Solution 11-09 02:00: 00 No 1,200 mg, 6 mL, Route: PO, Drug form: SOLN, Q12H, Dosing Weight 114.2, kg, Start date: 11/09/15 21:00:00 CDT, Duration: 4 doses or times, Stop date: 11/11/15 9:00:00 CDT Yolis Young sodium chloride 0.9% 1000 ml INJ 1000 mL 11-08 20:50: 00 No 1,000 mL, Rate: 75 ml/hr, Infuse over: 13.3 hr, Route: IV, Dosing Weight 114.2 kg, Total Volume: 1,000, Start date: 11/09/15 15:50:00 CDT, Stop date: 11/12/15 6:00:00 CDT Yolis Young Magnesium Sulfate 11-08 16:35: 00 No Notes: WASTE: F/P - Sink; E - [employer] Trash [employer] Yolis Young metoprolol tartrate 11-08 15:03: 00 No Notes: [...] date: 12/09/15 9:31:00 CDT Yolis Young sennosides, FDC 11-08 14:00: 00 No Notes: (Same as: Ashlie) Yolis Young Calcium Gluconate 11-08 13:07: 00 [...] PRN Anxiety, Start date: 11/09/15 0:52:00 CDT Yolis Young Morphine 11-08 05:22: 00 No Notes: (Same as:MORPhin e Sulfate) Yolis Young Metronidazo le 11-08 00:00: 00 No Notes: (Same as: Flagyl) Take with food/ avoid alcohol Morenovanessa Young Ciprofloxac in 11-07 22:00: 00 No Notes: May interfere w/enteral feedings - Take 1 hr before or 2 hrs after antacids, dairy pdt & minerals. On empty stomach. Yolis Young Ativan 11-07 08:14: 00 No Notes: (Same as: Ativan) Yolis Young Tylenol 11-07 03:33: 00 No Notes: Do not exceed 4 gm/day. (Same as: Tylenol) Yolis Young Nitroglycer in 11-07 02:33: 00 No Notes: (Same as:Nitroqu ick, Nitrostat) "Do Not Crush" Sublingual tablet Yolis Young Morphine 11-07 02:33: 00 No Notes: (Same as:MORPhin e Sulfate) Yolis Young Hydralazine 11-06 22:49: 00 No Notes: (Same as: Apresoline ) Push over 5 minutes Morenovanessa jennifer Hector heparin sodium, porcine 2500 UNT/ML Injectable Solution 11-06 21:00: 00 No Notes: porcine heparin Morenovanessa Young Metronidazo le 11-06 15:00: 00 No [...] 30 mg, Route: SUB-Q, Drug form: INJ, [id number], Dosing Weight 114.2, kg, Start date: 11/06/15 4:00:00 CDT, Duration: 30 day, Stop date: 12/05/15 4:00:00 CDT Yolis Jacksonann heparin 11-05 09:00: 00 No Notes: porcine heparin Yolis rodriguez Hector Acetaminoph en 325 MG / Hydrocodone Bitartrate 5 MG Oral Tablet 11-05 08:32: 00 No Notes: (Same as: Baker 325/5) Do not exceed 4gm/day of acetaminop hen. Yolis Jacksonann Ondansetron 11-05 08:32: 00 No Notes: (Same as: Zofran) MEDICATION WASTE Product Size: 4 mg Product Wasted: ___ mg Yolis Jacksonann Acetaminoph en 11-05 08:32: 00 No Notes: Do not exceed 4 gm/day. (Same as: Tylenol) Morenovanessa jennifer Young sodium chloride 0.45% 1000 ml INJ 1,000 mL 11-05 08:28: 00 No 1,000 mL, Rate: 30 ml/hr, Infuse over: 33.3 hr, Route: IVPB, Dosing Weight 114.2 kg, Total Volume: 1,000, Start date: 11/06/15 3:28:00 CDT, Stop date: 12/06/15 3:27:00 CDT Yolis Young niCARdipine 40 mg/ NS 200 ml IV Soln (premix) 40 mg 11-05 08:26: 00 No Notes: Same as: Cardene Concentrat ion: (0.2 mg /1 ml ) Yolis jennifer Young Dextrose 50% Syringe 11-05 08:17: 00 No 12.5 gm, 25 mL, Route: IVP, Drug Form: INJ, Dosing Weight 114.2, kg, PRN, PRN Blood Glucose Results, Start date: 11/06/15 3:17:00 CDT, Duration: 30 day, Stop date: 12/06/15 3:16:00 CDT Morenovanessa jennifer Young Glucagon 11-05 08:17: 00 No 1 [...] # 60 tab, 1 Refill(s) Morenovanessa jennifer Young Praluent (alirocumab ) 75 mg/ml 06-11 18:00: 00 No Praluent (alirocuma b) 75 mg/ml, 75 mg, Drug form: MISC, Route: SUB-Q, Q14D, 06/11/15 12:00:00, Duration: 30 day, Stop date: 07/09/15 12:00:00 Yolis Young montelukast 06-11 15:00: 00 No Notes: (Same as:Hieu du) Yolis Young 1 ML alirocumab 75 MG/ML Auto-Inject [...] 06-10 21:46: 00 No Notes: (Same as: Angelicazaar) Yolis Young Amlodipine 06-10 21:05: 00 No [...] = 1 tab, PO, BID, 0 Refill(s) Morenovanessa jennifer Young losartan 100 mg oral tablet 06-10 15:20: 00 Yes 100 mg = 1 tab, PO, Daily, 0 Refill(s) Morenovanessa jennifer Young Metformin hydrochlori de 1000 MG Oral [...] Duration: 30 day, Stop date: 07/09/15 23:19:00 Morenovanessa jennifer Hector Aspirin 06-10 04:49: 00 No Notes: (Do Not Crush) Do not crush or chew. Yolis Young Saline Flush 0.9% 06-10 04:47: 00 No Notes: (Same as: BD Posiflush) Morenovanessa jennifer Young enalapril 06-10 04:47: 00 No Notes: [...] by Radiology Staff ONLY" Yolis Young Iohexol 06 01:18: 00 No 85 mL, Route: IVP, Drug Form: SOLN, Dosing Weight 115, kg, ONCALL, STAT, Start date: 06/09/15 19:18:00, Duration: 1 doses or times, Dose = 2.2ml/kg, Max dose = 100ml -- "To be infused by Radiology Staff ONLY" Yolis Young clonidine 0.3 mg oral tablet 01-14 21:00: 00 No Vinny Sudarshan Popeye 0.3 mg, 1 tab, Route: PO, Drug form: TAB, Q8H, Dosing Weight 113.636, kg, Start date: 01/15/12 16:00:00, Duration: 30 day, Stop date: 02/14/12 8:00:00 Yolis jennifer Young clonidine 0.3 mg oral tablet 01-14 20:30: 29 Yes Vinny Sudarshan Popeye 0.3 mg, 1 tab, PO, Q8H, 90 tab, Substituti on Allowed, TAB Memoria jennifer Young metoprolol 25 mg oral tablet 01-14 20:27: 17 Yes Vinny Sudarshan Popeye 75 mg, 3 tab, PO, Q8H, 90 tab, Substituti on Allowed, TAB Yolis Young Flomax 0.4 mg oral capsule 01-14 20:27: 11 Yes Vinny Sudarshan Popeye 0.4 mg, 1 cap, PO, Daily, 30 cap, Substituti on Allowed, CAP Yolis Young glipiZIDE 5 mg oral tablet 01-14 20:27: 07 Yes Vinny Sudarshan Popeye 5 mg, 1 tab, PO, Daily, 30 tab, Substituti on Allowed, TAB Memoria jennifer Young Plavix 75 mg oral tablet 01-14 20:27: 03 Yes Vinny Sudarshan Popeye 75 mg, 1 tab, PO, Daily, 30 tab, Substituti on Allowed, TAB Yolis Young metFORmin 1000 mg oral tablet 01-14 20:26: 55 Yes Vinny Sudarshan Popeye 1,000 mg, 1 tab, PO, BID, 60 tab, Substituti on Allowed, TAB Memoria jennifer Young metoprolol tartrate 01-14 20:13: 00 No Vinny Sudarshan Popeye 75 mg, 3 tab, Route: PO, Drug form: TAB, Q8H, Dosing Weight 113.636, kg, Priority: NOW, Start date: 01/15/12 15:13:00, Duration: 30 day, Stop date: 02/14/12 8:00:00 Yolis Young Flomax 01-14 14:00: 00 No Vinny Sudarshan Popeye 0.4 mg, 1 cap, Route: PO, Drug form: CAP, Daily, Dosing Weight 113.636, kg, Start date: 01/15/12 9:00:00, Duration: 30 day, Stop date: 02/13/12 9:00:00 Yolis Young Plavix 01-14 14:00: 00 No Vinny Stillvor Popeye 75 mg, 1 tab, Route: PO, Drug form: TAB, Daily, Dosing Weight 113.636, kg, Start date: 01/15/12 9:00:00, Duration: 30 day, Stop date: 02/13/12 9:00:00 Yolis Young glipiZIDE 5 mg oral tablet 01-14 14:00: 00 No Vinny Heaton Popeye 5 mg, 1 tab, Route: PO, Drug [...] Young adenosine 01-14 03:35: 00 No Vinny Loyolar Popeye 95.4542 mg, Route: IVP, ONCE, Dosing Weight 113.636, kg, Priority: Routine, Start date: 01/14/12 22:35:00, Stop date: 01/14/12 22:35:00 Yolis Young Dextrose 50% Syringe 01-14 02:51: 00 No Vinny Loyolar Popeye 25 gm, 50 mL, Route: IVP, Drug Form: INJ, Dosing Weight 113.636, kg, PRN, PRN Blood Glucose Results, Start date: 01/14/12 21:51:00, Duration: 30 day, Stop date: 02/13/12 21:50:00 Yolis Young glucagon 01-14 02:51: 00 No Vinny Sudarshan Popeye 1 mg, Route: IM, Drug form: PDR/INJ, PRN, Dosing Weight 113.636, kg, PRN Blood Glucose Results, Start date: 01/14/12 21:51:00, Duration: 30 day, Stop date: 02/13/12 21:50:00 Yolis Young insulin aspart 01-14 02:51: 00 No Vinny Loyolar Popeye 10 unit, 0.1 mL, Route: SUB-Q, Drug form: SOLN, TID-Before Meals, Dosing Weight 113.636, kg, PRN Blood Glucose Results, Start date: 01/14/12 21:51:00, Duration: 30 day, Stop date: 02/13/12 21:50:00 Yolis Young heparin 01-14 02:00: 00 No Vinny Chambersison 5,000 unit, 1 mL, Route: SUB-Q, Drug form: INJ, Q12H, Dosing Weight 113.636, kg, Start date: 01/14/12 21:00:00, Duration: 30 day, Stop date: 02/13/12 9:00:00 Yolis Young Saline Flush 0.9% 01-14 02:00: 00 No Vinny Sudarshan Popeye 5 ml, Route: IVP, Drug Form: INJ, Dosing Weight 113.636, kg, Q12H, Start date: 01/14/12 21:00:00, Duration: 30 day, Stop date: 02/13/12 9:00:00 Yolis Young hydrALAZINE 01-13 23:48: 00 No Reagan Omidvar 20 mg, 1 mL, Route: IVP, Drug form: INJ, Q4H, Dosing Weight 113.636, kg, PRN Hypertensi on, Start date: 01/14/12 18:48:00, Duration: 30 day, Stop date: 02/13/12 18:47:00 [facility]oria jennifer JacksonKnox Flomax 0.4 mg oral capsule 01-13 23:23: 49 No Vinny Sudarshan Popeye 0.4 mg, 1 cap, PO, Daily, 30 cap, Substituti on Allowed, CAP Memoria jennifer Young Plavix 75 mg oral tablet 01-13 23:23: 02 No Vinny Sudarshan Popeye 75 mg, 1 tab, PO, Daily, 30 tab, Substituti on Allowed, TAB Memoria jennifer JacksonHector metFORmin 1000 mg oral tablet 01-13 23:22: 38 No Vinny Sudarshan Popeye 1,000 mg, 1 tab, PO, BID, 30 tab, Substituti on Allowed Memoria jennifer Young glipiZIDE 5 mg oral tablet 01-13 23:20: 43 No Vinny Sudarshan Popeye 5 mg, 1 tab, PO, Daily, 30 tab, Substituti on Allowed Memoria jennifer Knox clonidine 0.3 mg oral tablet 01-13 23:19: [...] 30 day, Stop date: 02/13/12 16:51:00 Yolis Young nitroglycer in SL Tab 01-13 21:52: 00 [...] date: 01/14/12 13:54:00, Stop date: 01/14/12 13:54:00 Yolis Young enalaprilat 01-13 18:52: 00 No Chauncey Perkins [...] Completed pneumococcal 13-valent vaccine 2016-01-25 14:00:00 Completed [facility] influenza virus vaccine, inactivated 2016-01-25 13:58:00 Completed [facility] Influenza, injectable, quadrivalent, preservative free (afluria, fluarix, [...] 12 & Over Vaccination (PURPLE-DILUTE) Unknown Completed [facility] COVID-19 Pfizer 12 & Over Vaccination (PURPLE-DILUTE) Unknown Completed [facility] COVID-19 Pfizer 12 & Over Vaccination (PURPLE-DILUTE) Unknown Completed [facility] COVID-19 Pfizer 12 & Over Vaccination (PURPLE-DILUTE) Unknown Completed [facility] Influenza, injectable, quadrivalent, preservative free (afluria, fluarix, flulaval, fluzone) Unknown Completed [facility] Pneumococcal Conjugate PCV 13 Unknown Completed [facility] COVID-19 Pfizer 12 & Over Vaccination (PURPLE-DILUTE) Unknown Completed [facility] Influenza, injectable, quadrivalent, preservative free (afluria, fluarix, flulaval, fluzone) Unknown Completed [facility] Pneumococcal Conjugate PCV 13 Unknown Completed [facility] COVID-19 Pfizer 12 & Over Vaccination (PURPLE-DILUTE) Unknown Completed [facility] Influenza, injectable, quadrivalent, preservative free (afluria, fluarix, flulaval, fluzone) Unknown Completed [facility] Pneumococcal Conjugate PCV 13 Unknown Completed [facility] COVID-19 Pfizer 12 & Over Vaccination (PURPLE-DILUTE) Unknown Completed [facility] Influenza, injectable, quadrivalent, preservative free (afluria, fluarix, flulaval, fluzone) Unknown Completed [facility] Pneumococcal Conjugate PCV 13 Unknown Completed [facility] COVID-19 Pfizer 12 & Over Vaccination (PURPLE-DILUTE) Unknown Completed [facility] Influenza, injectable, quadrivalent, preservative free (afluria, fluarix, flulaval, fluzone) Unknown Completed [facility] Pneumococcal Conjugate PCV 13 Unknown Completed [facility] Vital Signs Vital Name Observation Time Observation Value Comments S our Systolic blood pressure 2024-02-18 14:49:00 168 mm[Hg] [facility] Diastolic blood pressure 2024-02-18 14:49:00 85 mm[Hg] [facility] Heart rate 2024-02-18 14:49:00 54 /min [facility] Body height 2024-02-18 14:38:00 177.8 [facility] Body weight 2024-02-18 14:38:00 105.688 [facility] BMI 2024-02-18 14:38:00 33.43 kg/m2 [facility] height 2024-02-16 13:45:00 70 [in_i] Commo n [facility] weight 2024-02-16 13:45:00 243.6 [lb_av] Co mmon [facility] bmi 2024-02-16 13:45:00 34.95 kg/m2 Comm on [facility] oximetry 2024-02-16 13:45:00 96 % Commo n [facility] respiratory rate 2024-02-16 13:45:00 18 /min [facility] blood pressure systolic 2024-02-16 13:45:00 175 mm[Hg] [facility] blood pressure diastolic 2024-02-16 13:45:00 82 mm[Hg] [facility] Systolic blood pressure 2024-02-10 16:07:00 149 mm[Hg] [...] height 2024-02-05 15:05:00 [facility]8 [facility] Body weight 2024-02-05 15:05:00 108.138 kg [facility] [...] BMI 2023-12-12 16:51:00 34.87 kg/m2 [facility] Oxygen saturation in [...] height 2023-08-08 09:15:00 70 [in_i] Commo n [facility] weight 2023-08-08 09:15:00 240.2 [lb_av] Co [facility] temperature 2023-08-08 09:15:00 97.5 [degF] Com mon [facility] bmi 2023-08-08 09:15:00 34.46 kg/m2 Comm on [facility] oximetry 2023-08-08 09:15:00 97 % Commo n [facility] respiratory rate 2023-08-08 09:15:00 18 /min [facility] blood pressure systolic 2023-08-08 09:15:00 125 mm[Hg] [facility] blood pressure diastolic 2023-08-08 09:15:00 76 mm[Hg] [facility] Systolic blood pressure 2023-07-31 16:53:00 149 mm[Hg] [...] BMI 2023-07-31 16:52:00 33.19 kg[facility]m2 [facility] Systolic blood pressure 2023-04-24 16:59:00 120 mm[Hg] [facility] Diastolic blood pressure 2023-04-24 16:59:00 64 mm[Hg] [facility] Heart rate 2023-04-24 16:59:00 85 /min [facility] Body weight 2023-04-24 16:59:00 109.045 [facility] BMI 2023-04-24 16:59:00 33.53 kg/m2 [facility] Systolic blood pressure 2023-04-10 19:24:00 87 mm[Hg] [facility] Diastolic blood pressure 2023-04-10 19:24:00 62 mm[Hg] [facility] Heart rate 2023-04-10 19:24:00 64 /min [facility] Body height 2023-04-10 19:24:00 180.3 cm [facility] Body weight 2023-04-10 19:24:00 108.41 [facility] BMI 2023-04-10 19:24:00 33.33 kg/m2 [facility] Systolic blood pressure 2023-01-13 21:18:00 137 mm[Hg] [facility] Diastolic blood pressure 2023-01-13 21:18:00 84 mm[Hg] [facility] Heart rate 2023-01-13 21:18:00 80 /min [facility] Respiratory rate 2023-01-13 21:18:00 18 /min [facility] Body height 2023-01-13 21:18:00 180.3 cm [facility] Body weight 2023-01-13 21:18:00 106.051 [facility] BMI 2023-01-13 21:18:00 32.61 kg/m2 [facility] Oxygen saturation in Arterial blood by Pulse oximetry 2023-01-13 21:18:00 98 /min [facility] height 2022-12-12 15:15:00 70 [in_i] Commo n [facility] weight 2022-12-12 15:15:00 230 [lb_av] Comm on [facility] temperature 2022-12-12 15:15:00 97.9 [degF] Com [facility] bmi 2022-12-12 15:15:00 33 kg/m2 Commo n [facility] oximetry 2022-12-12 15:15:00 98 % Commo n [facility] heart rate 2022-12-12 15:15:00 73 /min Commo [facility] respiratory rate 2022-12-12 15:15:00 17 /min [facility] blood pressure systolic 2022-12-12 15:15:00 115 mm[Hg] [facility] blood pressure diastolic 2022-12-12 15:15:00 66 mm[Hg] [facility] height 2022-09-11 14:45:00 70 [in_i] Commo n [facility] weight 2022-09-11 14:45:00 234 [lb_av] Comm on [facility] temperature 2022-09-11 14:45:00 97.9 [degF] Com [facility] bmi 2022-09-11 14:45:00 33.57 kg/m2 Comm on [facility] oximetry 2022-09-11 14:45:00 99 % Commo n [facility] heart rate 2022-09-11 14:45:00 68 /min Commo [facility] respiratory rate 2022-09-11 14:45:00 18 /min [facility] blood pressure systolic 2022-09-11 14:45:00 146 mm[Hg] [facility] blood pressure diastolic 2022-09-11 14:45:00 68 mm[Hg] [facility] Systolic blood pressure 2021-11-19 16:10:00 131 mm[Hg] [facility] Diastolic blood pressure 2021-11-19 16:10:00 85 mm[Hg] [facility] Heart rate 2021-11-19 16:10:00 76 /min [facility] Respiratory rate 2021-11-19 16:10:00 18 /min [facility] Body weight 2021-11-19 16:10:00 109[facility]045 [facility] BMI 2021-11-19 16:10:00 33.53 kg/m2 [facility] ealt Oxygen saturation in Arterial blood by Pulse oximetry 2021-11-19 16:10:00 99 /min [facility] height 2021-07-27 13:00:00 70 [in_i] Commo n [facility] weight 2021-07-27 13:00:00 247 [lb_av] Comm on [facility] temperature 2021-07-27 13:00:00 98.1 [degF] Com mon [facility] bmi 2021-07-27 13:00:00 35.44 kg/m2 Comm on [facility] oximetry 2021-07-27 13:00:00 98 % Commo [facility] heart rate 2021-07-27 13:00:00 72 /min [facility] respiratory rate 2021-07-27 13:00:00 16 /min [facility] blood pressure systolic 2021-07-27 13:00:00 166 mm[Hg] [facility] blood pressure diastolic 2021-07-27 13:00:00 68 mm[Hg] [facility] Systolic (mm Hg) 2016-10-13 19:00:00 [facility] Diastolic (mm Hg) 2016-10-13 19:00:00 [facility] Systolic (mm Hg) 2016-10-13 18:00:00 [facility] Diastolic (mm Hg) 2016-10-13 18:00:00 [facility] Systolic (mm Hg) 2016-10-13 17:09:00 [facility] Diastolic (mm Hg) 2016-10-13 17:09:00 [facility] Respitory Rate 2016-10-13 16:00:00 [facility] Temperature Oral (F) 2016-10-13 16:00:00 97.9 F [facility] Respitory Rate 2016-10-13 13:00:00 [facility] Temperature Oral (F) 2016-10-13 12:00:00 99.3 F [facility] Temperature Oral (F) 2016-10-13 09:00:00 97.9 F [facility] Respitory Rate 2016-10-12 22:00:00 [facility] Height 2016-10-06 13:54:00 177.8 cm [facility] Weight 2016-10-06 13:54:00 [facility] BMI Calculated 2016-10-06 13:54:00 [facility] Systolic (mm Hg) 2016-01-25 22:00:00 [facility] Diastolic (mm Hg) 2016-01-25 22:00:00 [facility] Respitory Rate 2016-01-25 22:00:00 [facility] Systolic (mm Hg) 2016-01-25 21:00:00 [facility] Diastolic (mm Hg) 2016-01-25 21:00:00 [facility] Respitory Rate 2016-01-25 21:00:00 [facility] Systolic (mm Hg) 2016-01-25 20:00:00 [facility] Diastolic (mm Hg) 2016-01-25 20:00:00 [facility] Respitory Rate 2016-01-25 20:00:00 [facility] Heart Rate 2016-01-24 11:30:00 [facility] Temperature Oral (F) 2016-01-17 18:11:00 98.1 F [facility] Heart Rate 2016-01-17 18:11:00 [facility] BMI Calculated 2016-01-17 17:29:00 [facility] Weight 2016-01-17 17:29:00 [facility] Height 2016-01-17 17:29:00 180.34 cm [facility] Respitory Rate 2015-11-14 22:30:00 [facility] Systolic (mm Hg) 2015-11-14 22:30:00 [facility] Diastolic (mm Hg) 2015-11-14 22:30:00 [facility] Systolic (mm Hg) 2015-11-14 22:00:00 [facility] Diastolic (mm Hg) 2015-11-14 22:00:00 [facility] Respitory Rate 2015-11-14 22:00:00 [facility] Respitory Rate 2015-11-14 21:30:00 [facility] Systolic (mm Hg) 2015-11-14 21:30:00 [facility] Diastolic (mm Hg) 2015-11-14 21:30:00 [facility] Temperature Oral (F) 2015-11-14 21:00:00 97.3 F [facility] Temperature Oral (F) 2015-11-14 13:00:00 97.6 F [facility] Temperature Oral (F) 2015-11-13 17:00:00 96.9 F [facility] Height 2015-11-06 07:42:00 177.8 cm [facility] Weight 2015-11-06 07:42:00 [facility] BMI Calculated 2015-11-06 07:42:00 [facility] BMI Calculated 2015-11-06 07:30:00 [facility] Weight 2015-11-06 07:30:00 [facility] Height 2015-11-06 07:30:00 177.8 cm [facility] Systolic (mm Hg) 2015-06-11 21:42:00 [facility] Diastolic (mm Hg) 2015-06-11 21:42:00 [facility] Respitory Rate 2015-06-11 21:42:00 [facility] Temperature Oral (F) 2015-06-11 21:42:00 97.2 F [facility] Heart Rate 2015-06-11 21:42:00 [facility] Heart Rate 2015-06-11 18:18:00 [facility] Respitory Rate 2015-06-11 18:18:00 [facility] Systolic (mm Hg) 2015-06-11 18:18:00 [facility] Diastolic (mm Hg) 2015-06-11 18:18:00 [facility] Temperature Oral (F) 2015-06-11 18:18:00 97.9 F [facility] Respitory Rate 2015-06-11 13:22:00 [facility] Systolic (mm Hg) 2015-06-11 13:22:00 [facility] Diastolic (mm Hg) 2015-06-11 13:22:00 [facility] Heart Rate 2015-06-11 13:22:00 [facility] Temperature Oral (F) 2015-06-11 13:22:00 97.2 F [facility] BMI Calculated 2015-06-10 06:42:00 [facility] Height 2015-06-10 06:42:00 177.8 cm [facility] Weight 2015-06-10 06:42:00 [facility] Weight 2015-06-09 23:44:00 [facility] BMI Calculated 2015-06-09 23:44:00 [facility] Height 2015-06-09 23:44:00 177.8 cm [facility] Diastolic (mm Hg) 2012-01-15 23:15:00 [facility] Heart Rate 2012-01-15 23:15:00 [facility] Systolic (mm Hg) 2012-01-15 23:15:00 [facility] Respitory Rate 2012-01-15 23:15:00 [facility] Diastolic (mm Hg) 2012-01-15 22:47:00 [facility] Systolic (mm Hg) 2012-01-15 22:47:00 [facility] Temperature Oral (F) 2012-01-15 22:47:00 98.6 F [facility] Respitory Rate 2012-01-15 22:47:00 [facility] Heart Rate 2012-01-15 22:47:00 [facility] Systolic (mm Hg) 2012-01-15 20:36:00 [facility] Temperature Oral (F) 2012-01-15 20:36:00 97.2 F [facility] Heart Rate 2012-01-15 20:36:00 [facility] Diastolic (mm Hg) 2012-01-15 20:36:00 [facility] Respitory Rate 2012-01-15 20:36:00 [facility] Temperature Oral (F) 2012-01-15 17:15:00 97.8 F [facility] Weight 2012-01-14 15:59:00 [facility] Height 2012-01-14 15:59:00 177.80 cm [facility] Procedures Procedure Date / Time Performed Performing Clinician Source PVR 2024-02-16 00:00:00 [facility] ECG 12-LEAD 2024-02-10 [facility] 2024-02-10 [facility]:23[facility] 2023-12-12 18:24:30 [facility] [place] [facility] [place] 12-[place] 2023-11-26 19:26:31 [facility] 12-[facility] 2023-09-25 17:56:59 [facility] 12-LEAD 2023-09-25 17:56:59 [facility] COMPREHENSIVE METABOLIC PANEL 2023-09-04 20:53:[facility]23-[facility]-04 [facility]23-[facility]-08 00:00:00 [facility] ECG 12-LEAD 2023-08-01 18:17:10 [facility] 12-[facility] 2023-04-24 21:01:41 [facility] ECG 12-LEAD 2023-01-13 23:49:02 [facility] [place] [place] [facility] [place] 2022-12-12 00:00:00 [facility] PVR 2022-09-11 00:00:00 [facility] ECG 12-LEAD 2021-11-19 16:14:00 Aakash Ferrell [facility] ealt Tonsillectomy 1956-05-05 06:00:00 Yolis Young Cardiac catheterization Elijah [facility] Laminectomy [facility] Stent placement<sup>1</sup> Hoang Young Encounters Start Date/Time End Date/Time Encounter Type Admission Type Attending Clinicians Care Facility Care Department Encounter ID Source 2023-10-30 08:48:00 Outpatient SIL STAFFORD [facility] CAR [id number] [facility] 2023-06-09 14:27:01 Outpatient Nighat Grangerjuli STLMLC STLMLC [id number] [facility] 2022-11-13 10:23:52 Outpatient [facility] ER [id number] [facility] 2022-08-06 10:34:02 Outpatient Kattegummul a, Alireza STLMLC STLMLC [id number] [facility] 2021-10-29 14:57:02 Outpatient Kattegummul a, Alireza STLMLC STLMLC [id number] [facility] 2021-08-15 10:27:03 Outpatient Kattegummul a, Alireza STLMLC STLMLC [id number] [facility] 2021-08-14 16:05:03 Outpatient Kattegummul a, Alireza STLMLC STLMLC [id number] [facility] 2021-07-27 12:10:02 Outpatient Kattegummul a, Alireza STLMLC STLMLC [id number] [facility] 2020-11-03 14:00:38 Outpatient SURENDRA POLLARD [facility] ER [id number] [facility] 2024-06-22 10:30:00 2024-06-22 10:30:00 Outpatient HEMATPOTOÑITO MALCOLM [facility] ER [id number] [facility] 2024-05-06 15:15:00 2024-05-06 15:15:00 Outpatient REJIMAULIK [facility] ER [id number] [facility] 2024-03-05 13:40:00 2024-03-05 13:40:00 Outpatient SIL STAFFORD [facility] ER [id number] [facility] 2024-03-05 11:00:00 2024-03-05 11:00:00 Outpatient [facility] ER [id number] [facility] 2024-02-18 09:40:00 2024-02-18 11:14:59 Office Visit Lyubov [facility] 1.2.840.114 350.1.13.58 9.2.7.2.686 [id number] [facility] 2024-02-18 08:00:00 2024-02-18 10:28:52 Outpatient [facility] ER [id number] [facility] 2024-02-16 00:00:00 2024-02-16 00:00:00 OFFICE VISIT ESTAB PT LEVEL 3 STLMLC STLMLC [id number] [facility] 2024-02-10 11:00:00 2024-02-10 11:43:25 Office Visit HematpoToñito malcolm [facility] 2 1.2.840.114 350.1.13.58 9.2.7.2.686 [id number] [facility] 2024-02-05 10:00:00 2024-02-05 12:28:01 Office Visit Brad Trevor [facility] [address] 1.2.840.114 350.1.13.58 9.2.7.2.686 [id number] [facility] 2024-01-27 13:37:00 2024-02-01 13:57:00 Inpatient SIL STAFFORD [facility] CAR [id number] [facility] 2024-01-08 14:00:00 2024-01-08 14:00:00 Outpatient MAULIK MENDOZA [facility] ER [id number] [facility] 2023-12-12 13:00:00 2023-12-12 14:37:09 Office Visit Aguilar Valenzuela [facility] [address] 1.2.840.114 350.1.13.58 9.2.7.2.686 [id number] [facility] 2023-12-12 11:40:00 2023-12-12 12:12:12 Office Visit Sil Stafford [facility] [address] 1.2.840.114 350.1.13.58 9.2.7.2.686 [id number] [facility] 2023-11-26 10:40:00 2023-11-26 15:31:22 Office Visit [facility] 1.2.840.114 350.1.13.58 9.2.7.2.686 [id number] [facility] 2023-10-31 13:00:00 2023-10-31 13:00:00 Outpatient AGUILAR VALENZUELA [facility] ER [id number] [facility] 2023-10-24 14:00:00 2023-10-24 14:00:00 Outpatient SIL STAFFORD [facility] ER [id number] [facility] 2023-09-25 10:40:00 2023-09-25 13:02:11 Office Visit [facility] 1.2.840.114 350.1.13.58 9.2.7.2.686 [id number] [facility] 2023-09-17 11:20:00 2023-09-17 11:20:00 Outpatient [facility] ER [id number] [facility] 2023-09-04 15:30:00 2023-09-04 15:45:00 Office Visit Maulik Mendoza [facility] [address] 1.2.840.114 350.1.13.58 9.2.7.2.686 [id number] [facility] 2023-08-26 08:40:00 2023-08-26 23:59:00 Outpatient AAKASH FERRELL [facility] CAR [id number] [facility] 2023-08-18 08:24:00 2023-08-18 15:15:00 Outpatient LUXYUNIORDARIKATHY Hill [facility] CAR [id number] [facility] 2023-08-08 00:00:00 2023-08-08 00:00:00 OFFICE VISIT ESTAB [facility]EVEL [address] [facility] [id number] [facility] 2023-07-31 11:40:00 2023-07-31 13:38:04 Office Visit [facility] 1.2.840.114 350.1.13.58 9.2.7.2.686 [id number] [facility] 2023-07-31 10:00:00 2023-07-31 12:28:32 Outpatient [facility] [id number] [facility] 2023-07-24 13:00:00 2023-07-24 13:00:00 Outpatient MAULIK MENDOZA [facility] ER [id number] [facility] 2023-07-17 11:00:00 2023-07-17 11:00:00 Outpatient [facility] ER [id number] [facility] 2023-04-24 11:00:00 2023-04-24 12:40:57 Office Visit [facility] 1.2.840.114 350.1.13.58 9.2.7.2.686 [id number] [facility] 2023-04-24 10:00:00 2023-04-24 12:35:50 Outpatient [facility] [id number] [facility] 2023-04-10 13:45:00 2023-04-10 14:12:35 Office Visit Maulik Mendoza [facility] [address] 1.2.840.114 350.1.13.58 9.2.7.2.686 [id number] [facility] 2023-04-10 11:40:00 2023-04-10 11:40:00 Outpatient LYUBOVEAGLE Mason [facility] ER [id number] [facility] 2023-04-10 10:00:00 2023-04-10 10:00:00 Outpatient [facility] [id number] [facility] 2023-01-13 16:20:00 2023-01-13 17:13:36 Office Visit Aakash Ferrell [facility] [address] 1.2840.114 350.1.13.58 9.2.7.2.686 [id number] [facility] 2022-12-12 00:00:00 2022-12-12 00:00:00 OFFICE VISIT ESTAB PT LEVEL 3 STLMLC STLMLC [id number] [facility] 2022-09-11 00:00:00 2022-09-11 00:00:00 OFFICE VISIT ESTAB PT LEVEL 3 STLMLC STLMLC [id number] [facility] 2022-03-25 13:40:00 2022-03-25 13:40:00 Outpatient FERRELLAAKASH WEST [facility] ER [id number] [facility] 2021-11-19 11:00:00 2021-11-19 11:57:59 Office Visit Aakash Ferrell [facility] [address] 1.2840.114 350.1.13.58 9.2.7.2.686 [id number] [facility] 2021-09-14 00:00:00 2021-09-14 00:00:00 Telephone Danay Navarro Jannine [facility] [address] 1.2840.114 350.1.13.58 9.2.7.2.686 [id number] [facility] 2021-09-13 00:00:00 2021-09-13 00:00:00 Telephone Danay Navarro Jannine [facility] [address] 1.2840.114 350.1.13.58 9.2.7.2.686 [id number] [facility] 2021-09-10 00:00:00 2021-09-10 00:00:00 Telephone Danay Navarro Jannine [facility] [address] 1.2.840.114 350.1.13.58 9.2.7.2.686 [id number] [facility] 2021-09-10 00:00:00 2021-09-10 00:00:00 Telephone Danay Navarro Jannine [facility] [address] 1.2.840.114 350.1.13.58 9.2.7.2.686 [id number] [facility] 2021-08-28 13:30:00 2021-08-28 14:00:00 Telephonic Encounter GhassanAakash [facility] [address] 1.2.840.114 350.1.13.58 9.2.7.2.686 [id number] [facility] 2021-08-17 00:00:00 2021-08-17 00:00:00 Telephone Magda Hanley Kellie [facility] 1.2.840.114 350.1.13.58 9.2.7.2.686 [id number] [facility] 2021-08-09 16:00:00 2021-08-09 16:40:00 Office Visit Aakash Ferrell [facility] [address] 1.2.840.114 350.1.13.58 9.2.7.2.686 [id number] [facility] 2021-08-09 13:30:00 2021-08-09 14:54:42 Office Visit Maulik Mendoza [facility] [address] 1.2.840.114 350.1.13.58 9.2.7.2.686 [id number] [facility] 2021-08-07 00:00:00 2021-08-07 00:00:00 Telephone Tameka Ramos Marlenis [facility] [address] 1.2.840.114 350.1.13.58 9.2.7.2.686 [id number] [facility] 2021-07-27 00:00:00 2021-07-27 00:00:00 OFFICE VISIT NEW PT LEVEL 3 STLMLC STLC [id number] [facility] 2020-11-02 00:00:00 2020-11-02 00:00:00 Telephone Prakash Mack [address] 1.2.840.114 350.1.13.58 9.2.7.2.686 [id number] [facility] 2016-10-06 11:50:00 2016-10-13 18:00:00 Inpatient nullFlavo r [facility] [id number] 2016-03-08 13:08:00 2016-03-09 04:59:00 Outpt Diag Services nullFlavo r [facility] [place] [id number] Yolis Jacksonann 2016-01-24 10:54:00 2016-01-26 00:10:00 Inpatient nullFlavo r [facility] [id number] [facility] 2015-11-06 07:18:00 2015-11-15 01:00:00 Inpatient nullFlavo r [facility] [id number] [facility] 2015-06-09 23:43:00 2015-06-11 22:03:00 Inpatient nullFlavo r [facility] [id number] [facility] 2012-01-14 13:18:00 2012-01-15 19:00:00 OU nullFlavo r [facility] [id number] [facility] Results Test Description Test Time Test Comments Results Resul t Comments Source ECG 12 lead 2024-02-10 16:23:29 Sinus Bradycardia -First degree A-V block Iza = 284-Prominent R(V1) -nonspecific.-Diffu se nonspecific T-abnormality.Low voltage -possible pulmonary disease. ABNORMAL [facility] ECG 12 lead 2023-12-12 18:24:30 Atrial fibrillation -occasional ectopic ventricular beat ?-Nonspecific T-abnormality. ABNORMAL [facility] ECG 12 lead 2023-09-25 17:56:59 Atrial fibrillation Low voltage in limb leads.-Nonspecific T-abnormality. ABNORMAL [facility] [id number] 04:53:00* Test Item Value Reference Range Interpretation [...] mg/dL 0.70-1.28 H EGFR (test code = 537646381) 31 See_Comment L [Automated message] The system which generated this result transmitted reference range: > OR = 60 mL/min/1.73m2. The reference range was not used to interpret this result as normal/abnormal. BUN/CREATININE RATIO (test code = 3097-3) 14 6-22 SODIUM (test code = 2951-2) 138 mmol/L 135-146 POTASSIUM (test code = 2823-3) 4.5 mmol/L 3.5-5.3 CHLORIDE (test code = 5-0) 107 mmol/L 98-110 CARBON DIOXIDE (test code = 2027-9) 23 mmol/L 20-32 CALCIUM (test code = 61658-5) 9.3 mg/dL 8.6-10.3 PROTEIN, TOTAL (test code = 2885-2) 6.9 g/dL 6.1-8.1 ALBUMIN (test code = 1751-7) 4.2 g/dL 3.6-5.1 GLOBULIN (test code = 02377-2) 2.7 1.9-3.7 ALBUMIN/GLOBULIN RATIO (test code = 1759-0) 1.6 1.0-2.5 BILIRUBIN, TOTAL (test code = 1975-2) 0.9 mg/dL 0.2-1.2 ALKALINE PHOSPHATASE (test code = 6768-6) 104 U/L 35-144 AST (test code = 1920-8) 13 U/L 10-35 ALT (test code = 1742-6) 13 U/L 9-46 RAC (test code = RAC) Performing Organization Information: ? ?Site ID: RGA ? ?Name: [employer] ? ?Address: [address] [place] [id number] ? ?Director: CECILIO OLSON MD,PHD. Lab Interpretation (test code = 40247-5) Abnormal [place] [address] yszl5175-14-04 18:17:10* Test Item Value Reference Range Interpretation Comme nts URBAN (test code = URBAN) Atrial fibrillatio n -frequent ectopic ventricular beats # VECs = 2Low voltage in limb leads.-Nonspecific T-abnormality. ABNORMAL Lab Interpretation (test code = 20648-5) Abnormal [place] [address] [id number] 21:01:41Atrial fibrillation -Nonspecific T- abnormality.Low voltage -possible pulmonary disease. [facility]AL[facility]EL 2016-10-13 10:11:00* Test Item Value Reference Range Interpretation Comme nts Glucose Lvl (test code = Glucose Lvl) 86 70-99 [facility]wzvbpNQHWNGXIZI1046-11-60 10:11:00* Test Item Value Reference Range Interpretation Comme nts MCH (test code = MCH) 31.5 pg 27.0-31.0 [facility]2017-06-10 10:27:00* Test Item Value Reference Range Interpretation Comme nts eGFR (test code = eGFR) 37 [facility]JkfdviiALRINFRONK8548-11-18 10:27:00* Test Item Value Reference Range Interpretation Comme nts Eosinophils (test code = Eosinophils) 4.5 See_Comment [Automated messa ge] The system which generated this result transmitted reference range: <=4.0. The reference range was not used to interpret this result as normal/abnormal. [facility] CenterJvhtcezSPZAIFMSVQZC2508-60-44 09:07:00* Test Item Value Reference Range Interpretation Comme nts Potassium Lvl (test code = P otassium Lvl) 3.9 3.5-5.1 [facility] HospitalRftqpbuDKVWIUFCAJ4372-06-38 09:07:00* Test Item Value Reference Range Interpretation Comme nts Hgb (test code = Hgb) 11.3 14.0-18.0 [facility] YUXWL0489-07-96 09:33:00* Test Item Value Reference Range Interpretation Comme nts Phosphorus (test code = Phosphorus) 3.5 2.5-4.5 [facility] HospitalDigital Health Dialog BANK YUCBVYS4646-51-90 05:59:00* Test Item Value Reference Range Interpretation Comme nts Antibody Scrn (test code = Antibody Scrn) Negative (10/09/16 12:59 AM) [facility] N4G.comAC EKEORQX4145-90-05 05:59:00* Test Item Value Reference Range Interpretation Comme nts Troponin-I (test code = Troponin-I) 0.02 See_Comment [Automated messa ge] The system which generated this result transmitted reference range: <=0.40. The reference range was not used to interpret this result as normal/abnormal. [facility] [employer] ZWRRH4532-57-19 05:59:00* Test Item Value Reference Range Interpretation Comme nts Magnesium Lvl (test code = M agnesium Lvl) 2.5 1.8-2.4 [facility] KuldatannTacodaAC KZLPLBY0966-36-82 02:41:00* Test Item Value Reference Range Interpretation Comme nts Troponin-I (test code = Troponin-I) 0.02 See_Comment [Automated [employer] Appsa ge] The system which generated this result transmitted reference range: <=0.40. The reference range was not used to interpret this result as normal/abnormal. [facility] KuldatannPARATHYROID SFJGCAC3223-38-61 22:24:00* Test Item Value Reference Range Interpretation Comme nts Ca Norm WB (test code = Ca Norm WB) 1.05 1.05-1.25 [facility] [employer] [id number] 07:59:00* Test Item Value Reference Range Interpretation Comme nts Phosphorus (test code = Phosphorus) 3.2 2.5-4.5 [facility] KuldatannPARATHYROID LNTBZRZ6794-69-71 06:42:00* Test Item Value Reference Range Interpretation Comme nts Ca Norm WB (test code = Ca Norm WB) 1.14 1.05-1.25 [facility] [employer]CARAntennaAC SBEBUNY6204-49-50 20:35:00* Test Item Value Reference Range Interpretation Comme nts Troponin-I (test code = Troponin-I) 0.05 See_Comment [Automated messa ge] The system which generated this result transmitted reference range: <=0.40. The reference range was not used to interpret this result as normal/abnormal. [facility] QEARNIR8249-53-83 13:19:00* Test Item Value Reference Range Interpretation Comme nts BNP (test code = BNP) 569 [facility] [employer]2017-06-04 13:19:00* Test Item Value Reference Range Interpretation Comme nts Albumin Lvl (test code = Albumin Lvl) 3.8 3.5-5.0 [facility] HospitalPpivfhhEUFMYKFQYS6971-66-91 13:19:00* Test Item Value Reference Range Interpretation Comme nts PTT (test code = PTT) 33.9 s 22.9-35.8 [facility] HospitalCARDIAC WLVACIY5608-67-45 00:34:13* Test Item Value Reference Range Interpretation Comme nts BNP (test code = BNP) 533 [facility] CenterWAY Systems TWRXR9202-50-47 20:40:00* Test Item Value Reference Range Interpretation Comme nts Calcium Lvl (test code = Calcium Lvl) 8.3 8.5-10.5 [facility] CenterVramcfrEPGLLASBYGEO4007-97-32 22:52:00* Test Item Value Reference Range Interpretation Comme nts AGAP (test code = AGAP) 11.1 10.0-20.0 [facility] CenterQsssvcwVFGRDIHNUM3800-55-68 22:52:00* Test Item Value Reference Range Interpretation Comme nts Basophils (test code = Basophils) 1.0 See_Comment [Automated [employer] App[employer] ge] The system which generated this result transmitted reference range: <=1.0. The reference range was not used to interpret this result as normal/abnormal. [facility] DomobiosBACTERIAL - ZFVIPCTM7632-15-17 21:19:00* Test Item Value Reference Range Interpretation Comme nts MRSA by PCR (test code = MRSA by PCR) Negative (01/24/16 4:19 PM) [facility] [employer] UXKUFKR3547-86-05 16:02:00* Test Item Value Reference Range Interpretation Comme nts RBC product (test code = RBC product) Product available 1(01/24/16 11:02 AM) [facility] JsomvmqMDUBTXDEEGBK9523-01-90 12:19:00* Test Item Value Reference Range Interpretation Comme nts Potassium Lvl (test code = P otassium Lvl) 3.0 3.5-5.1 [facility] YufkewgYYKKWZCXPV3451-15-08 12:19:00* Test Item Value Reference Range Interpretation Comme nts INR (test code = INR) 1.28 0.85-1.17 [facility] [employer] LJHABTY9036-33-67 17:50:00* Test Item Value Reference Range Interpretation Comme nts Antibody Scrn (test code = Antibody Scrn) Negative (01/17/16 12:50 PM) [address] RightLvyyzugKHRSXNNAKEWW8172-96-42 17:50:00* Test Item Value Reference Range Interpretation Comme nts AGAP (test code = AGAP) 10.2 10.0-20.0 [facility] WlnqrcmPATEJUQAVP4267-97-98 17:50:00* Test Item Value Reference Range Interpretation Comme nts PTT (test code = PTT) 50.2 s 22.9-35.8 [facility] DomobiosCHEM [id number] 07:45:00* Test Item Value Reference Range Interpretation Comme nts Phosphorus (test code = Phosphorus) 3.7 2.5-4.5 [facility] JqepxatYMYRGINUYOKR4820-39-16 07:45:00* Test Item Value Reference Range Interpretation Comme nts AGAP (test code = AGAP) 12.2 10.0-20.0 [facility] IexcyurCAPFEBWDYC3066-42-91 07:45:00* Test Item Value Reference Range Interpretation Comme nts PTT (test code = PTT) 33.2 s 22.9-35.8 [facility] CenterannPARATHYROID ADXSSED5712-82-80 07:45:00* Test Item Value Reference Range Interpretation Comme nts Ca Ion WB (test code = Ca Ion WB) 1.14 1.05-1.25 [facility] DomobiosURINE MCJJ2047-23-61 15:28:00* Test Item Value Reference Range Interpretation Comme nts U Eos (test code = U Eos) None Seen (11/13/15 10:28 AM) [facility] [employer] KSELGHO6429-17-06 09:56:00* Test Item Value Reference Range Interpretation Comme nts Antibody Scrn (test code = Antibody Scrn) Negative (11/13/15 4:56 AM) [employer] [id number] 09:56:00* Test Item Value Reference Range Interpretation Comme nts Magnesium Lvl (test code = M agnesium Lvl) 2.3 1.8-2.4 [facility] WgyygcdKBKYSYSREHLC5317-28-84 09:56:00* Test Item Value Reference Range Interpretation Comme nts AGAP (test code = AGAP) 14.1 10.0-20.0 [facility] CenterCbxjqnaTUHIWNYBMS8636-95-21 09:56:00* Test Item Value Reference Range Interpretation Comme nts Segs-Bands # (test code = Segs-Bands #) 7.2 1.5-8.1 [facility] CenterannPARATHYROID CTVEZRN0748-97-46 09:56:00* Test Item Value Reference Range Interpretation Comme nts Ca Ion WB (test code = Ca Ion WB) 1.06 1.05-1.25 [facility] [id number] 21:39:00* Test Item Value Reference Range Interpretation Comme nts U Chloride (test code = U Chloride) 87 [facility] HospitalMOLECULAR LZBPWPKXXJ3211-44-11 19:52:00* Test Item Value Reference Range Interpretation Comme nts C difficile DNA (test code = C difficile DNA) Negative (11/12/15 2:52 PM) [facility] HospitalCHEM [id number] 07:59:00* Test Item Value Reference Range Interpretation Comme nts eGFR (test code = eGFR) 25 [facility] CenterIupmyvpMLQDVXUTUW6624-18-52 07:59:00* Test Item Value Reference Range Interpretation Comme nts PTT (test code = PTT) 32.6 s 22.9-35.8 [facility] CenterannPARATHYROID VCBQWYL9966-10-92 07:59:00* Test Item Value Reference Range Interpretation Comme nts Ca Norm WB (test code = Ca Norm WB) 1.08 1.05-1.25 [facility] CenterannCARDIAC QFRESGU3248-22-89 07:23:00* Test Item Value Reference Range Interpretation Comme nts Total CK (test code = Total CK) 63 12-191 [facility] CenterOrgqhjfJIIFYMTNL5941-83-92 07:23:00* Test Item Value Reference Range Interpretation Comme nts Myoglobin (test code = Myoglobin) 122 25-72 [facility] CenterannCARDIAC KXHYPNU5990-74-43 06:46:00* Test Item Value Reference Range Interpretation Comme nts CK MB (test code = CK MB) 7.2 0.5-3.6 [facility] CenterannCARDIAC TAZUBMB3409-01-45 23:07:00* Test Item Value Reference Range Interpretation Comme nts CK MB Index (test code = CK MB Index) 8.7 See_Comment [Automated m essage] The system which generated this result transmitted reference range: <=2.5. The reference range was not used to interpret this result as normal/abnormal. [facility] CenterHxatkkrWAQAJPTKP2438-34-30 23:07:00* Test Item Value Reference Range Interpretation Comme nts Myoglobin (test code = Myoglobin) 139 25-72 [facility] [id number] 18:02:00* Test Item Value Reference Range Interpretation Comme nts CK MB (test code = CK MB) 10.0 0.5-3.6 [id number] 18:02:00* Test Item Value Reference Range Interpretation Comme nts Myoglobin (test code = Myoglobin) 190 25-72 [facility] [id number] 07:01:00* Test Item Value Reference Range Interpretation Comme nts Antibody Scrn (test code = Antibody Scrn) Negative (11/09/15 2:01 AM) [facility] [id number] 07:34:00* Test Item Value Reference Range Interpretation Comme nts Globulin (test code = Globulin) 3.6 2.0-4.0 [facility] [id number] 07:34:00* Test Item Value Reference Range Interpretation Comme nts Vanco Lvl (test code = Vanco Lvl) 22.3 [facility] [id number] 09:02:00* Test Item Value Reference Range Interpretation Comme nts Alk Phos (test code = Alk Phos) 73 39-136 [id number] 09:02:00* Test Item Value Reference Range Interpretation Comme nts Vanco Lvl (test code = Vanco Lvl) 7.7 [facility] [id number] 17:16:00* Test Item Value Reference Range Interpretation Comme nts U Protein (test code = U Protein) 35.8 [facility] AND [id number] 10:36:00* Test Item Value Reference Range Interpretation Comme nts UA WBC (test code = UA WBC) no gt See_Comment [Automated messa ge] The system which generated this result transmitted reference range: <=5. The reference range was not used to interpret this result as normal/abnormal. [facility] [id number] 10:23:00* Test Item Value Reference Range Interpretation Comme nts HDL (test code = HDL) 32 [facility] [id number] 07:36:00* Test Item Value Reference Range Interpretation Comme nts MRSA by PCR (test code = MRSA by PCR) Negative (11/06/15 2:36 AM) [facility] [id number] 07:36:00* Test Item Value Reference Range Interpretation Comme nts ABO/Rh (test code = ABO/Rh) O POS [facility] [id number] 07:36:00* Test Item Value Reference Range Interpretation Comme nts Lactic Acid Lvl (test code = Lactic Acid Lvl) 1.1 0.5-2.2 [facility]SPE[facility] [id number] 07:36:00* Test Item Value Reference Range Interpretation Comme nts Hgb A1C (test code = Hgb A1C) 5.8 [facility] [id number] 16:15:00* Test Item Value Reference Range Interpretation Comme nts AGAP (test code = AGAP) 11.7 10.0-20.0 [facility] [id number] 16:15:00* Test Item Value Reference Range Interpretation Comme nts Monocytes # (test code = Monocytes #) 0.6 See_Comment [Automated messa ge] The system which generated this result transmitted reference range: <=0.8. The reference range was not used to interpret this result as normal/abnormal. [facility] Hospit[id number] 10:52:00* Test Item Value Reference Range Interpretation Comme nts INR (test code = INR) 1.15 0.85-1.17 [facility] [id number] 08:01:00* Test Item Value Reference Range Interpretation Comme nts Creatinine Lvl (test code = Creatinine Lvl) 1.09 0.50-1.40 [id number] 08:01:00* Test Item Value Reference Range Interpretation Comme nts Hct (test code = Hct) 39.9 42.0-54.0 [facility] [id number] 08:01:00* Test Item Value Reference Range Interpretation Comme nts VLDL (test code = VLDL) 35 [facility]SPE[facility] [id number] 08:01:00* Test Item Value Reference Range Interpretation Comme nts Hgb A1C (test code = Hgb A1C) 6.9 [facility] AND [id number] 08:01:00* Test Item Value Reference Range Interpretation Comme nts UA Urobilinogen (test code = UA Urobilinogen) <=1.0 mg/dL 0.1-1.0 [facility]DR[facility] [id number] 04:52:00* Test Item Value Reference Range Interpretation Comme nts U Cannab Scr (test code = U Cannab Scr) Negative *NA*(06/09/15 10:52 PM) [facility] AND [id number] 01:49:00* Test Item Value Reference Range Interpretation Comme nts UA Bacteria (test code = UA Bacteria) Rare [facility] HospitalCARDIAC [id number] 00:33:00* Test Item Value Reference Range Interpretation Comme nts Troponin-I (test code = Troponin-I) no gt See_Comment [Automated messa ge] The system which generated this result transmitted reference range: <=0.40. The reference range was not used to interpret this result as normal/abnormal. [facility] HospitalCHE[facility] [id number] 00:33:00* Test Item Value Reference Range Interpretation Comme nts Bili Indirect (test code = Bili Indirect) 0.4 See_Comment [Automated message] The system which generated this result transmitted reference range: <=1.0. The reference range was not used to interpret this result as normal/abnormal. [facility] [id number] 00:33:00* Test Item Value Reference Range Interpretation Comme nts PTT (test code = PTT) 26.6 s 22.9-35.8 [facility] [id number] 00:33:00* Test Item Value Reference Range Interpretation Comme nts LDL (Calculated) (test code = LDL (Calculated)) 16 [facility] GLUCOSE [id number] 17:42:00* Test Item Value Reference Range Interpretation Comme nts Gluc POC Lifscn (test code = Gluc POC Lifscn) 215 70-99 H [facility] GLUCOSE [id number] 11:33:00* Test Item Value Reference Range Interpretation Comme nts Gluc POC Lifscn (test code = Gluc POC Lifscn) 148 70-99 [id number] 08:05:00* Test Item Value Reference Range Interpretation Comme nts Troponin-I (test code = Troponin-I) no gt See_Comment N [Automated messa ge] The system which generated this result transmitted reference range: <=0.40. The reference range was not used to interpret this result as normal/abnormal. [facility] [id number] 01:52:00* Test Item Value Reference Range Interpretation Comme nts CK MB (test code = CK MB) 1.7 0.5-3.6 N [facility] GLUCOSE [id number] 00:07:00* Test Item Value Reference Range Interpretation Comme nts Gluc POC Lifscn (test code = Gluc POC Lifscn) 105 70-99 [facility] [id number] 16:16:00* Test Item Value Reference Range Interpretation Comme nts Magnesium Lvl (test code = M agnesium Lvl) 1.5 1.8-2.4 L [facility] [id number] 16:16:00* Test Item Value Reference Range Interpretation Comme nts Monocytes # (test code = Monocytes #) 0.5 See_Comment N [Automated messa ge] The system which generated this result transmitted reference range: <=0.8. The reference range was not used to interpret this result as normal/abnormal. [facility] H[id number] 16:16:00* Test Item Value Reference Range Interpretation Comme nts CDC-HIV 1/2 Ab (test code = CDC-HIV 1/2 Ab) Negative *NA*(01/14/2012 11:16:00) [facility] Notes Date/Time Note Provider Source 2024-02-10 11:00:00 Addended by: DEVIN YOU on: 2024 08:55 AM Modules accepted: Orders Devin You MA [facility]
[2024-04-02 00:47] LABS: Absolute Basophils 0.1 K/uL (0-0.5); Absolute Eosinophils 0.7 K/uL (0-0.5); Absolute Lymphocytes (CBC) 0.8 K/uL (0.7-4.9); Absolute Monocytes 0.5 K/uL (0.1-1.3); Absolute Neutrophil 8.5 K/uL (1.8-8.0); Basophils % 0.8 % (0-1.3); Eosinophils % 6.8 % (0-4.4); Hematocrit 22.4 % (39.6-49.0); Hemoglobin 7.2 g/dL (13.6-17.9); Lymphocytes % 7.6 % (15.3-44.8); MCH 33.7 pg (27.0-35.0); MCHC 32.1 g/dL (32.0-36.0); MCV 104.8 fL (80-100); MPV 8.5 fL (7.6-11.3); Monocytes % 4.3 % (3.3-12.3); Neutrophils % 80.5 % (41.7-73.7); Platelets 189 thou/uL (152-406); RBC Red Blood Cell Count 2.14 M/uL (4.33-5.43); Red Cell Distribution Width 19.2 % (12.1-15.2)
[2024-04-02 00:49] LABS: ALT/SGPT 15 U/L (16-61); Albumin 2.8 g/dL (3.4-5.0); Albumin/Globulin Ratio 0.8 (1.1-1.8); Alkaline Phosphatase 80 U/L (45-117); BUN Blood Urea Nitrogen 74 mg/dL (7-18); Bicarbonate 21 mEq/L (21-32); Bilirubin Direct 0.2 mg/dL (0-0.2); Bilirubin Indirect, Calculated 0.3 mg/dL (0.2-0.8); Bilirubin Total 0.5 mg/dL (0.2-1.0); Globulin 3.3 g/dL (2.3-3.5); Glomerular Filtration Rate 17 ml/min (=/>90); Glucose Level 159 mg/dL (74-106); Magnesium 2.3 mg/dL (1.6-2.4); NT PRO-BNP 6705 pg/mL (<125); Protein, Total 6.1 g/dL (6.4-8.2); Sodium Level 141 mEq/L (136-145); Troponin High Sensitivity 39.4 pg/mL (<58.9)
[2024-04-02 00:52] LABS: AST/SGOT < 10 U/L (15-37)
[2024-04-02 00:57] LABS: PT Prothrombin Time 32.5 SECONDS (9.4-12.5)
[2024-04-02 01:10] LABS: C-Reactive Protein 16.6 mg/L (<3.00)
--- NOTE | 2024-04-02 01:21 | RAD REPORT ---
EXAM: XR Chest, 1 View CLINICAL HISTORY: Chest pain. TECHNIQUE: Frontal view of the chest. COMPARISON: XR Chest 07/29/2023 (report only). FINDINGS: Lungs: Mild central pulmonary vascular and interstitial prominence and minimal patchy bibasilar opa cities. Pleural space: Unremarkable. No pneumothorax. Heart: The cardiac silhouette is mildly enlarged, in part accentuated by portable technique. Mediastinum: Unremarkable. Normal mediastinal contour. Bones/joints: Multilevel spondylosis. No acute fracture. Vasculature: Thoracic aortic atherosclerosis. IMPRESSION: Findings which may be related to mild pulmonary congestion. Superimposed infection not excluded. Electronically signed by: Dawna Ramírez MD 04/02/2024 12:51 AM [facility] Due to temporary technical issues with the PACS/Park[employer] reporting system, reports are being nelida d by the in-house radiologist without review as a courtesy to ensure prompt reporting the interpreting radiologist is fully responsible for the content of the report. Transcribed Date/Time: 04/02/2024 1:21 AM
[2024-04-02 01:25] LABS: Thyroid Stimulating Hormone 5.07 uIU/mL (0.358-3.740)
[2024-04-02] MEDS ORDERED: PANTOPRAZOLE 40 MG INJ ONE (03:35)
[2024-04-02] MEDS ORDERED: NA CHLORIDE 0.9% 250 ML ONE ×2 (03:36→03:42)
[2024-04-02] MEDS ORDERED: OCTREOTIDE ACETATE 500 MCG/ML ONE (03:36)
[2024-04-02] MEDS ORDERED: NA CHLORIDE 0.9% 500 ML ONE (03:36)
--- NOTE | 2024-04-02 03:43 | EDPHYS ---
Physician Documentation [facility] Name: Frank Shaw Age: 74 yrs Sex: Male : 1950 Arrival Date: 04/01/2024 Time: 23:59 Bed 4 Private MD: ED Physician Pavel Moser HPI: 04/02 00:07 This 74 yrs old Male presents to ER via EMS with complaints of Chest Pain. sp4 03:32 74-year-old male with extensive past medical history of atrial fibrillation aortic sp4 valve replacement, coronary artery disease, congestive heart failure, chronic kidney disease, type 2 diabetes, hypertension hyperlipidemia COPD presents with complaint of midsternal chest pressure. Patient presents with EMS and improved chest pain after sublingual nitroglycerin. Patient takes Xarelto 15 mg p.o. daily aspirin 81 mg p.o. daily, additional medication include montelukast, albuterol, cetirizine, fluticasone, glimepiride, metoprolol, tamsulosin, amiodarone, amlodipine, benzonatate, guaifenesin, ipratropium, isosorbide, levalbuterol, mometasone, formoterol,. Historical: - Allergies: 00:06 Methocarbamol; al5 00:06 Robaxin; al5 00:06 statins; al5 - Home Meds: 00:06 albuterol sulfate 90 mcg/actuation Inhl HFA Aerosol Inhaler [Active]; cetirizine 10 mg al5 Oral tablet daily [Active]; fluticasone propionate 50 mcg/actuation intranasal spray [Active]; furosemide 40 mg Oral tab 1 tab once daily [Active]; glimepiride 1 mg Oral tablet every morning [Active]; isosorbide mononitrate 20 mg Oral tab 1 tab daily [Active]; losartan 50 mg Oral tab 1 tab once daily [Active]; metoprolol tartrate 50 mg Oral tab 1 tab daily [Active]; montelukast 10 mg Oral tab 1 tab once daily [Active]; nifedipine 60 mg Oral tr24 1 tab once daily [Active]; nitroglycerin 0.4 mg SL subl 1 tab as needed [Active]; tamsulosin 0.4 mg Oral capsule daily [Active]; Xarelto 20 mg Oral tab 1 tab once daily [Active]; - PMHx: 00:06 Atrial fibrillation; CAD; CHF; CVA; COPD; diabetes mellitus; Hearing Loss with hearing al5 aids; Hernia; Hypertensive disorder; Left lung Pneumothorax; Myocardial infarction; Renal Disease; Sleep Apnea; TIA; - PSHx: 00:06 back sx; Heart Stents; al5 - Immunization history:: Adult Immunizations up to date. - Infectious Disease History:: Denies. - Social history:: Smoking status: Patient reports the use of cigarette tobacco products, smokes one pack cigarettes per day. - Family history:: not pertinent. ROS: 03:32 Constitutional: Negative for fever, chills, and weight loss, positive for midsternal sp4 chest pressure Eyes: Negative for injury, pain, redness, and discharge, ENT: Negative for injury, pain, and discharge, Neck: Negative for injury, pain, and swelling, 03:32 All other systems are negative, Exam: 00:23 Abdomen/GI: Rectal exam reveals grossly melenic stool,, no bright red blood, no rectal sp4 mass normal anal tone., 03:32 Constitutional: This is a well developed, well nourished patient who is awake, alert, sp4 and in no acute distress. Head/Face: Normocephalic, atraumatic. Eyes: Pupils equal round and reactive to light, extra-ocular motions intact. Lids and lashes normal. Conjunctiva and sclera are not injected. Cornea within normal limits. Periorbital areas with no swelling, redness, or edema. ENT: Nares patent. No nasal discharge, no septal abnormalities noted. Tympanic membranes are normal and external auditory canals are clear. Oropharynx with no redness, swelling, or masses, exudates, or evidence of obstruction, uvula midline. Mucous membranes moist. Neck: Trachea midline, no thyromegaly or masses palpated, and no cervical lymphadenopathy. Supple, full range of motion without nuchal rigidity, or vertebral point tenderness. Chest/axilla: Normal chest wall appearance and motion. Nontender with no deformity. No lesions are appreciated. Cardiovascular: Regular rate and rhythm with a normal S1 and S2. No gallops, murmurs, or rubs. Normal PMI, no JVD. No pulse deficits. Respiratory: Lungs have equal breath sounds bilaterally, clear to auscultation and percussion. No rales, rhonchi or wheezes noted. No increased work of breathing, no retractions or nasal flaring. Abdomen/GI: Soft, with normal bowel sounds. No distension or tympany. No guarding or rebound. No evidence of tenderness throughout. Back: No spinal tenderness. No costovertebral tenderness. Skin: Warm, dry with normal turgor. Normal color with no rashes, no lesions, and no evidence of cellulitis. MS/ Extremity: Pulses equal, no cyanosis. Neurovascular intact. Full, normal range of motion. Neuro: Awake and alert, GCS 15, oriented to person, place, time, and situation. Cranial nerves II-XII grossly intact. Motor strength 5/5 in all extremities. Sensory grossly intact. Psych: Awake, alert, with orientation to person, place and time. Behavior, mood, and affect are within normal limits 03:32 ECG was reviewed by the Attending Physician. EKG at 0023 Vital Signs: 00:03 BP 173 / 75; Pulse 80; Resp 18; Temp 98.8; Pulse Ox 100% on R/A; Weight 104.78 kg; al5 Height 5 ft. 11 in. ; Pain 3/10; 01:00 BP 157 / 64; Pulse 70; Resp 17; Pulse Ox 100% on R/A; al5 01:59 BP 143 / 94; Pulse 73; Resp 17 S; Pulse Ox 100% on R/A; br2 02:47 BP 156 / 74; Pulse 74; Resp 18; Pulse Ox 100% on R/A; al5 03:00 BP 169 / 72; Pulse 67; Resp 15; Pulse Ox 100% on R/A; al5 04:00 BP 159 / 73; Pulse 66; Resp 18; Pulse Ox 100% on R/A; al5 04:49 BP 160 / 69; Pulse 65; Resp 15; Temp 98.7; Pulse Ox 100% on R/A; al5 04:57 BP 168 / 70; Pulse 68; Resp 17; Temp 98.3; Pulse Ox 100% on R/A; al5 05:02 BP 165 / 75; Pulse 68; Resp 14; Temp 98.3; Pulse Ox 100% on R/A; al5 05:07 BP 164 / 73; Pulse 68; Resp 15; Pulse Ox 100% on R/A; al5 05:22 BP 155 / 70; Pulse 66; Resp 15; Pulse Ox 100% on R/A; al5 00:03 Body Mass Index 32.22 (104.78 kg, 180.34 cm) al5 00:03 Pain Scale: Adult al5 Faith Coma Score: 03:32 Eye Response: spontaneous(4). Motor Response: obeys commands(6). Verbal Response: sp4 oriented(5). Total: 15. MDM: 00:08 Medical Screening Exam initiated sp4 00:23 Differential diagnosis: acute pericarditis, anxiety, coronary artery disease chest wall sp4 pain, congestive heart failure cholecystitis, costochondritis, esophagitis, gastritis. HEART Score: History: Highly Suspicious (2), ECG: Normal (0), Age: > or = 65 years (2), Risk Factors: > or = 3 Risk factors for atherosclerotic disease (2), Troponin: < or = 1 x Normal Limit (0), Total Score = 6. The patient was not given aspirin in the Emergency Department. Administered by EMS. Data reviewed: vital signs, nurses notes, EMS record, old medical records, lab test result(s), EKG, radiologic studies, plain films. ED course: EXAM: XR Chest, 1 View CLINICAL HISTORY: Chest pain. TECHNIQUE: Frontal view of the chest. COMPARISON: XR Chest 07/29/2023 (report only). FINDINGS: Lungs: Mild central pulmonary vascular and interstitial prominence and minimal patchy bibasilar opacities. Pleural space: Unremarkable. No pneumothorax. Heart: The cardiac silhouette is mildly enlarged, in part accentuated by portable technique. Mediastinum: Unremarkable. Normal mediastinal contour. Bones/joints: Multilevel spondylosis. No acute fracture. Vasculature: Thoracic aortic atherosclerosis. IMPRESSION: Findings which may be related to mild pulmonary congestion. Superimposed infection not excluded.. 03:43 ED course: Patient was discussed with Hoang valiente MD at [facility] and accepted sp4 for transfer. Reason for transfer no available hospital sales representative, patient wished to go to the [facility] because his cardiology team is at [facility]. . 04/02 02:37 Order name: Type And Screen sp4 04/02 00:08 Order name: Basic Metabolic Panel; Complete Time: 02:33 sp4 04/02 00:08 Order name: CBC with Diff; Complete Time: 02:33 sp4 29 00:08 Order name: LFT's; Complete Time: 02:33 4 04/02 00:08 Order name: Magnesium; Complete Time: 02:33 04/02 00:08 Order name: NT PRO-BNP; Complete Time: 02:33 4 04/02 00:08 Order name: PT-INR; Complete Time: 02:33 4 04/02 00:08 Order name: Troponin HS; Complete Time: 02:33 04/02 00:45 Order name: CRP; Complete Time: 02:4 04/02 00:45 Order name: TSH; Complete Time: 02:4 04/02 00:45 Order name: T4 Free; Complete Time: :04/02 03:26 Order name: Packed RBC Leukored EDWA 04/02 00:08 Order name: XRAY Chest (1 view) 4 04/02 00:08 Order name: Cardiac monitoring; Complete Time: 00:48 04/02 00:08 Order name: EKG - Nurse/Tech; Complete Time: 00:48 04/02 00:08 Order name: IV Saline Lock; Complete Time: 00:15 04/02 00:08 Order name: Labs collected and sent; Complete Time: 00:16 04/02 00:08 Order name: O2 Per Protocol; Complete Time: 00:48 04/02 00:08 Order name: O2 Sat Monitoring; Complete Time: 00:48 4 EC:23 Rate is 77 beats/min. Rhythm is regular, Sinus Rhythm. QRS [place] is Normal. ME interval sp4 is prolonged. QRS interval is normal. QT interval is prolonged. No Q waves. T waves are Normal. No ST changes noted. Clinical impression: No evidence of ischemia. Interpreted by me. Reviewed by me. Administered Medications: 04:01 Drug: Octreotide Infusion (50 mcg/hr) - (Octreotide IV 500 mcg, NS 0.9% IV 500 ml) IV br2 at 50 ml/hr continuous Route: IV; Rate: 50 ml/hr; Site: right antecubital; 05:36 Follow up: Response: No adverse reaction; IV Status: Infusion continued upon transfer al5 04:02 Drug: Pantoprazole IVP 80 mg IVP once Route: IVP; Site: left wrist; br2 05:36 Follow up: Response: No adverse reaction al5 04:02 Drug: Pantoprazole IV 8 mg/hr IV at 25 ml/hr continuous; (Standard dilution is 80 mg in br2 250 mL NS) Route: IV; Rate: 25 ml/hr; Site: left wrist; 05:36 Follow up: Response: No adverse reaction; IV Status: Infusion continued upon transfer al5 Disposition: 03:44 Critical Care:. sp4 Disposition Summary: 04/02/24 03:42 Transfer Ordered Notes: Transfer Location: [facility] sp4 Reason: Higher level of care sp4 Condition: Fair sp4 Problem: new sp4 Symptoms: have improved sp4 Accepting Physician: [facility] Attending MD (04/02/24 05:35) al5 Diagnosis - Upper GI Bleeding, Symptomatic anemia, Unstable angina, Acute on chronic renal sp4 failure Forms: - Medication Reconciliation Form sp4 - SBAR form sp4 Critical care time excluding procedures: 03:44 Critical care time: Bedside Care: 36 minutes, Consultation: 12 minutes, Family sp4 Intervention: 12 minutes. Total time: 60 minutes Signatures: Dispatcher [employer] Pavel Kong MD MD sp4 Tianna Jacobs RN RN al5 Victorina Mccabe RN RN br2 Corrections: (The following items were deleted from the chart) 00:08 00:06 PMHx: CAD; al5 al5 00:08 00:08 BASIC METABOLIC PANEL+C.LAB.BRZ ordered. EDMS EDMS 00:08 00:08 CBC+H.LAB.BRZ ordered. EDMS EDMS 00:08 00:08 HEPATIC FUNCTION+C.LAB.BRZ ordered. EDMS EDMS 00:08 00:08 MAGNESIUM+C.LAB.BRZ ordered. EDMS EDMS 00:08 00:08 PROBNP+C.LAB.BRZ ordered. EDMS EDMS 00:08 00:08 PROTIME (+INR)+COAG.LAB.BRZ ordered. EDMS EDMS 00:08 00:08 Troponin High Sensitivity+C.LAB.BRZ ordered. EDMS EDMS 00:09 00:08 Chest Single View+RAD.RAD.BRZ ordered. EDMS EDMS 03:25 02:38 PACKED RBC LEUKORED+BB.LAB.BRZ ordered. EDMS EDMS 03:25 02:40 ABO/RH typing ordered. EDMS EDMS 03:25 02:40 Antibody Screen ordered. EDMS EDMS 05:35 03:42 C Attending sp4 al5
--- NOTE | 2024-04-02 03:43 | ER ---
Nurse's Notes [facility] Name: Frank Shaw Age: 74 yrs Sex: Male : 1950 Arrival Date: 04/01/2024 Time: 23:59 Bed 4 Private MD: Diagnosis: Upper GI Bleeding, Symptomatic anemia, Unstable angina, Acute on chronic renal failure Presentation: 04/02 00:03 Chief complaint: Patient states: c/o intermittent chest pain since 1899. patient was al5 taking nitro to help with the chest pain and it would help, but pain would bounce back. pain initially was 8/10, currently 3/10. Coronavirus screen: At this time, the client does not indicate any symptoms associated with coronavirus-19. Ebola Screen: No symptoms or risks identified at this time. Initial Sepsis Screen: Does the patient meet any 2 criteria? No. Patient's initial sepsis screen is negative. Does the patient have a suspected source of infection? No. Patient's initial sepsis screen is negative. Risk Assessment: Do you want to hurt yourself or someone else? Patient reports no desire to harm self or others. Onset of symptoms was April 02, 2024. 00:03 Method Of Arrival: EMS: [facility] al5 00:03 Acuity: AGUS 2 al5 Triage Assessment: 00:08 General: Appears in no apparent distress. Behavior is calm, cooperative. Pain: al5 Complains of pain in chest Pain currently is 3 out of 10 on a pain scale. at worst was 8 out of 10 on a pain scale. EENT: No signs and/or symptoms were reported regarding the EENT system. Neuro: Level of Consciousness is awake, alert, obeys commands, Oriented to person, place, time. Cardiovascular: Capillary refill < 3 seconds Patient's skin is warm and dry. Cardiovascular: Reports chest pain. Respiratory: Airway is patent Respiratory effort is even, unlabored, Respiratory pattern is regular, symmetrical. GI: No signs and/or symptoms were reported involving the gastrointestinal system. Abdomen is round non-distended. : No signs and/or symptoms were reported regarding the genitourinary system. Derm: Skin is intact, is healthy with good turgor, Skin is pink, warm \T\ dry. normal. Musculoskeletal: No signs and/or symptoms reported regarding the musculoskeletal system. Historical: - Allergies: 00:06 Methocarbamol; al5 00:06 Robaxin; al5 00:06 statins; al5 - Home Meds: 00:06 albuterol sulfate 90 mcg/actuation Inhl HFA Aerosol Inhaler [Active]; cetirizine 10 mg al5 Oral tablet daily [Active]; fluticasone propionate 50 mcg/actuation intranasal spray [Active]; furosemide 40 mg Oral tab 1 tab once daily [Active]; glimepiride 1 mg Oral tablet every morning [Active]; isosorbide mononitrate 20 mg Oral tab 1 tab daily [Active]; losartan 50 mg Oral tab 1 tab once daily [Active]; metoprolol tartrate 50 mg Oral tab 1 tab daily [Active]; montelukast 10 mg Oral tab 1 tab once daily [Active]; nifedipine 60 mg Oral tr24 1 tab once daily [Active]; nitroglycerin 0.4 mg SL subl 1 tab as needed [Active]; tamsulosin 0.4 mg Oral capsule daily [Active]; Xarelto 20 mg Oral tab 1 tab once daily [Active]; - PMHx: 00:06 Atrial fibrillation; CAD; CHF; CVA; COPD; diabetes mellitus; Hearing Loss with hearing al5 aids; Hernia; Hypertensive disorder; Left lung Pneumothorax; Myocardial infarction; Renal Disease; Sleep Apnea; TIA; - PSHx: 00:06 back sx; Heart Stents; al5 - Immunization history:: Adult Immunizations up to date. - Infectious Disease History:: Denies. - Social history:: Smoking status: Patient reports the use of cigarette tobacco products, smokes one pack cigarettes per day. - Family history:: not pertinent. Screenin:11 [facility] ED Fall Risk Assessment (Adult) History of falling in the last 3 months, al5 including since admission No falls in past 3 months (0 pts) Confusion or Disorientation No (0 pts) Intoxicated or Sedated No (0 pts) Impaired Gait No (0 pts) Mobility Assist Device Used No (0 pt) Altered Elimination No (0 pt) Score/Fall Risk Level 0 - 2 = Low Risk Oriented to surroundings, Maintained a safe environment, Hourly rounding (assess needs \T\ fall precautionary measures) done. Abuse screen: Denies threats or abuse. Denies injuries from another. Nutritional screening: No deficits noted. Tuberculosis screening: No symptoms or risk factors identified. Assessment: 00:10 Reassessment: see triage assessment. Pain: Pain does not radiate. Pain began al5 intermittent since 1899. 01:32 Reassessment: Patient appears in no apparent distress at this time. No changes from al5 previously documented assessment. Patient and/or family updated on plan of care and expected duration. Pain level reassessed. Patient is alert, oriented x 3, equal unlabored respirations, skin warm/dry/pink. 02:47 Reassessment: Patient appears in no apparent distress at this time. No changes from al5 previously documented assessment. Patient and/or family updated on plan of care and expected duration. Pain level reassessed. Patient is alert, oriented x 3, equal unlabored respirations, skin warm/dry/pink. 04:16 Reassessment: Patient appears in no apparent distress at this time. No changes from al5 previously documented assessment. Patient and/or family updated on plan of care and expected duration. Pain level reassessed. Patient is alert, oriented x 3, equal unlabored respirations, skin warm/dry/pink. 05:34 Reassessment: Patient appears in no apparent distress at this time. No changes from al5 previously documented assessment. Patient and/or family updated on plan of care and expected duration. Pain level reassessed. Patient is alert, oriented x 3, equal unlabored respirations, skin warm/dry/pink. Vital Signs: 00:03 BP 173 / 75; Pulse 80; Resp 18; Temp 98.8; Pulse Ox 100% on R/A; Weight 104.78 kg; al5 Height 5 ft. 11 in. ; Pain 07/12; 01:00 BP 157 / 64; Pulse 70; Resp 17; Pulse Ox 100% on R/A; al5 01:59 BP 143 / 94; Pulse 73; Resp 17 S; Pulse Ox 100% on R/A; br2 02:47 BP 156 / 74; Pulse 74; Resp 18; Pulse Ox 100% on R/A; al5 03:00 BP 169 / 72; Pulse 67; Resp 15; Pulse Ox 100% on R/A; al5 04:00 BP 159 / 73; Pulse 66; Resp 18; Pulse Ox 100% on R/A; al5 04:49 BP 160 / 69; Pulse 65; Resp 15; Temp 98.7; Pulse Ox 100% on R/A; al5 04:57 BP 168 / 70; Pulse 68; Resp 17; Temp 98.3; Pulse Ox 100% on R/A; al5 05:02 BP 165 / 75; Pulse 68; Resp 14; Temp 98.3; Pulse Ox 100% on R/A; al5 05:07 BP 164 / 73; Pulse 68; Resp 15; Pulse Ox 100% on R/A; al5 05:22 BP 155 / 70; Pulse 66; Resp 15; Pulse Ox 100% on R/A; al5 00:03 Body Mass Index 32.22 (104.78 kg, 180.34 cm) al5 00:03 Pain Scale: Adult al5 Holden Coma Score: 03:32 Eye Response: spontaneous(4). Motor Response: obeys commands(6). Verbal Response: sp4 oriented(5). Total: 15. ED Course: 00:02 Patient arrived in ED. al5 00:06 Triage completed. al5 00:07 Pavel Moser MD is Attending Physician. sp4 00:09 Arm band placed on right wrist. Patient placed in the treatment room, on a stretcher, al5 on environmental protection economist, on pulse oximetry. 00:11 Patient has correct armband on for positive identification. Bed in low position. Call al5 light in reach. Side rails up X2. Provided Education on: plan of care. Client placed on continuous cardiac and pulse oximetry monitoring. NIBP monitoring applied. customer insight analyst on. 00:11 No provider procedures requiring assistance completed. Patient maintains SpO2 al5 saturation greater than 95% on room air. 00:14 Inserted saline lock: 20 gauge in right antecubital area, using aseptic technique. oe Blood collected. Flushed with 10 mL NS. 00:16 Basic Metabolic Panel Sent. oe 00:16 CBC with Diff Sent. oe 00:16 LFT's Sent. oe 00:16 Magnesium Sent. oe 00:16 NT PRO-BNP Sent. oe 00:16 PT-INR Sent. oe 00:16 Troponin HS Sent. oe 00:24 XRAY Chest (1 view) In Process Unspecified. EDMS 00:26 EKG done, by ED staff, reviewed by Pavel Moser MD. oe 00:29 Victorina Mccabe, RN is Primary Nurse. br2 02:46 Initiated transfer with [facility] at [facility]. rv1 02:59 Type And Screen Sent. br2 03:[address] Mccarthy to [facility]. Report #[id number]. rv1 03:50 Transfer delayed due to waiting for patient blood transfusion. rv1 05:14 Tianna Jacobs, RN is Primary Nurse. al5 05:34 Patient transferred, IV remains in place. al5 05:36 Packed RBC Leukored Sent. al5 Administered Medications: 04:01 Drug: Octreotide Infusion (50 mcg/hr) - (Octreotide IV 500 mcg, NS 0.9% IV 500 ml) IV br2 at 50 ml/hr continuous Route: IV; Rate: 50 ml/hr; Site: right antecubital; 05:36 Follow up: Response: No adverse reaction; IV Status: Infusion continued upon transfer al5 04:02 Drug: Pantoprazole IVP 80 mg IVP once Route: IVP; Site: left wrist; br2 05:36 Follow up: Response: No adverse reaction al5 04:02 Drug: Pantoprazole IV 8 mg/hr IV at 25 ml/hr continuous; (Standard dilution is 80 mg in br2 250 mL NS) Route: IV; Rate: 25 ml/hr; Site: left wrist; 05:36 Follow up: Response: No adverse reaction; IV Status: Infusion continued upon transfer al5 Medication: 00:11 VIS not applicable for this client. al5 Outcome: 03:42 ER care complete, transfer ordered by . sp4 05:34 Transferred by ground EMS [facility]. to [facility], Transfer form completed. al5 05:34 Condition: stable 05:34 Instructed on the need for transfer, 05:35 Patient left the ED. al5 Signatures: Dispatcher [employer] EDMS [place] Arnold Rebecca rv1 Pavel Moser MD MD sp4 Tianna Jacobs, RN RN al5 Victorina Mccabe, TRENT RN br2 Corrections: (The following items were deleted from the chart) 00:08 00:06 PMHx: CAD; al5 al5 00:11 00:09 Reassessment: see triage assessment al5 al5 01:32 01:31 BP 157 / 64; Pulse 70bpm; Resp 17bpm; Pulse Ox 100% RA; al5 al5 03:25 02:59 Antibody Screen drawn and sent. br2 EDMS 03:25 02:59 ABO/RH typing drawn and sent. br2 EDMS
[2024-04-02 05:48] VITALS: O2SAT 100
[2024-04-02 06:08] VITALS: TEMP 98.3
[2024-04-02 06:11] VITALS: BP 155/70
--- NOTE | 2024-04-04 14:16 | EKG ---
Test Date: 2024-04-02 Test Time: 00:23:26 Upholstery Tech: MONSERRAT MEASUREMENT RESULTS: Intervals: Rate: 77 [place]: 220 QRSD: 108 QT: 420 QTc: 475 [place]: P: 63 [place]: 220 QRS: 64 T: -23 INTERPRETIVE STATEMENTS: Sinus rhythm with sinus arrhythmia with 1st degree AV block Nonspecific T wave abnormality Prolonged QT Abnormal ECG Compared to ECG 03/24/2024 17:26:10 T-wave abnormality now present Prolonged QT interval now present Sinus bradycardia no longer present Electronically Signed On 04-04-24 14:14:06 SOFTWARE QUALITY ASSURANCE ENGINEER by Jet Rivera
== END 2024-04-02 05:35 | disposition short-term general hospital (02) ==
LOC: ER 23:59
PROC: 30233N1 Transfusion of Nonautologous Red Blood Cells into Peripheral Vein, Percutaneous Approach (ICD-10-PCS; principal; 2024-04-02)
DX: D64.9 Anemia, unspecified (principal); I20.0 Unstable angina; E11.22 Type 2 diabetes mellitus with diabetic chronic kidney disease; I13.0 Hypertensive heart and chronic kidney disease with heart failure and stage 1 through stage 4 chronic kidney disease, or unspecified chronic kidney disease; N18.9 Chronic kidney disease, unspecified; I50.9 Heart failure, unspecified; N17.9 Acute kidney failure, unspecified; I48.91 Unspecified atrial fibrillation; Z79.01 Long term (current) use of anticoagulants; Z95.818 Presence of other cardiac implants and grafts; J44.9 Chronic obstructive pulmonary disease, unspecified; I25.2 Old myocardial infarction; F17.210 Nicotine dependence, cigarettes, uncomplicated
CPT/HCPCS: 93005; 85025; 80048; 36415; 86900; 83735; 86850; 85610; 86901; 80076; 86920 ×2; 84443; 84484; 84439; 83880; 86140; 71045; 36430; J2354; J2470; P9016; J7050 ×2; J7040; 99285

== ENCOUNTER 2024-06-07 04:38 | Inpatient (IN) | payer OTHER ==
[2024-06-07] MEDS ORDERED: ETOMIDATE 20 MG/10 ML VIAL IV ONE (04:47)
[2024-06-07] MEDS ORDERED: ROCURONIUM 50 MG/5 ML VIAL IV ONE (04:48)
--- OUTSIDE RECORDS SUMMARY | 2024-06-07 04:49 | XMS REPORT | Continuity of Care Document ---
Author Name Unknown Address [address] [facility] [address] [place] [address] [facility] Address [address] [facility] [address] [place] [address] Care Team Providers Care [place] Name Role Phone [phone] Primary Care Physician Unavailab BLANCA Lofton Attending Clinician Un available SIL SERRANO Attending Clinician Unavailable Belkys Granger Attending Clinician Unavailable Alireza Gomez Attending Clinician Unavaila SURENDRA Barton Attending Clinician Unavailable TOÑITO PLASCENCIA Attending Clinician Unavail able EAGLE MCARTHUR Attending Clinician Unavailable Samanta Ruvalcaba RN Attending Clinician UnavailMORGAN Philip Attending Clinician Un available Maria SOTO, Zaki Christensen Attending Clinician [phone] Cyrus SOTO, Shaniqua Attending Clinician + [phone] Claude Simms MD Attending Clinician +[phone] Kristian SOTO, Morgan Valencia Attending Clinician MAULIK MENDOZA Attending Clinician Unavailable GREGORIO GASPAR Attending Clinician Adelia Elkins MD, Kimberly Hill Attending Clinician [phone] Milly MUSTAFA, Viki Bernard Attending Clinician [phone] Hank SOTO, Blanca Ornelas Attending Clinician Pantera SOTO, Gregorio Orlando Attending Clinician [phone] Kameron SOTO, Chelo Vieira Attending Clinician + Abimael Keller MD Attending Clinician +[phone] Mark SOTO, Caleb Attending Clinician SIL SERRANO Attending Clinician Unavailable Trevor Salinas APRN Attending Clinician [phone] Ofelia SOTO, Aguilar Attending Clinician [phone] AAKASH BARRIOS Attending Clinician Unav ailable CALEB DOMINGUEZ Attending Clinician Laura vailable Aakash Barrios MD Attending Clinician + 1 Danay Navarro RN Attending Clinician UnavailMagda Larose RN Attending Clinician UnavailTameka Snow MA Attending Clinician Unavailab Hansel SOTO, Prakash Attending Clinician [phone] VIKI ATKINS Admitting Clinician Adelia BRIDGES, SHANIQUA Admitting Clinician Unavailable Cyrus SOTO, Shaniqua Admitting Clinician + [phone] Milly MUSTAFA, Viki Bernard Admitting Clinician + [phone] SIL SERRANO Admitting Clinician Unavailable Payers Payer Name Policy Type Policy Number Effective Date Expirati on Date Source [employer] MED[employer]ARE OON Medicare [id number] 2023 00:00:00 [employer] ADVANTAGE O [id number] 2020 00:00:00 2020 00:00:00 Problems Condition Name Condition Details Condition Category Status Onset Date Resolution Date Last Treatment Date Treating Clinician Comments Source ESBL (extended spectrum beta-lacta jordy) producing bacteria infection ESBL (extended spectrum beta-lacta jordy) producing bacteria infection Disease Active 15 00:00: 00 Yolis Kaiser Simple obesity Simple obesity Disease Recurre nce 05-18 00:00: 00 Yolis Kaiser Hemoptysis Hemoptysis Disease Active 05-18 00:00: 00 Yolis Kaiser E. coli pneumonia (CMS/HCC) E. coli pneumonia (CMS/HCC) Disease Active 05-18 00:00: 00 Yolis Kaiser Acute hypoxic respirator y failure Acute hypoxic respirator y failure Disease Active 05-12 00:00: 00 Yolis Kaiser Stage 4 chronic kidney disease (CMS/HCC) Stage 4 chronic kidney disease (CMS/HCC) Disease Active 05-12 00:00: 00 Yolis Kaiser Normocytic anemia Normocytic anemia Disease Active 05-12 00:00: 00 Yolis Kaiser Acute on chronic diastolic heart failure (CMS/HCC) Acute on chronic diastolic heart failure (CMS/HCC) Disease Active 05-12 00:00: 00 Yolis Kaiser Gastritis Gastritis Disease Active 2023-05 00:00: 00 Yolis Kaiser Hypertensi ve urgency Hypertensi ve urgency Disease Active 2023-05 00:00: 00 Yolis Kaiser CKD (chronic kidney disease) stage 3, GFR 30-59 ml/min CKD (chronic kidney disease) stage 3, GFR 30-59 ml/min Disease Active 2023-05 00:00: 00 Yolis Kaiser Primary hypertensi on Primary hypertensi on Disease Active 2023-05 00:00: 00 Yolis Kaiser 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 Disease Active 2023-05 00:00: 00 Yolis Kaiser Acute on chronic blood loss anemia Acute on chronic blood loss anemia Disease Active 2023-05 00:00: 00 Yolis Kaiser AF (paroxysma l atrial fibrillati on) (CMS/HCC) AF (paroxysma l atrial fibrillati on) (CMS/HCC) Disease Active 2023-05 00:00: 00 Yolis Kaiser Chronic bronchitis Chronic bronchitis Disease Active 2023-05 00:00: 00 Yolis Kaiser JOSH on CPAP JOSH on CPAP Disease Active 2023-05 00:00: 00 Yolis Kaiser Diabetes mellitus type 2, controlled Diabetes mellitus type 2, controlled Disease Active 2023-05 00:00: 00 Yolis Kaiser 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) 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) Disease Active 2023-05 00:00: 00 Yolis Kaiser 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) Disease Active 2023-05 00:00: 00 Yolis Kaiser GI bleed GI bleed Disease Active 2023-05 00:00: 00 Yolis Kaiser Brain TIA Brain TIA Disease Active 2023-05 00:00: 00 Yolis Kaiser Chronic renal failure (CRF), stage 3 (moderate) Chronic renal failure (CRF), stage 3 (moderate) Disease Active 2023-05 00:00: 00 Yolis Kaiser 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 Disease Active 2023-05 00:00: 00 Yolis Kaiser Acute kidney injury Acute kidney injury Disease Active 2023-05 00:00: 00 Yolis Kaiser BPH (benign prostatic hyperplasi a) BPH (benign prostatic hyperplasi a) Disease Active 2023-05 0-08 00:00: 00 Yolis Kaiser Non-ST elevation (NSTEMI) myocardial infarction (CMS/HCC) Non-ST elevation (NSTEMI) myocardial infarction (CMS/HCC) Disease Active 2023-05 0-08 00:00: 00 Yolis Kaiser Abdominal aortic aneurysm (AAA) without rupture Abdominal aortic aneurysm (AAA) without rupture Disease Active 2023-05 0-08 00:00: 00 Yolis Kaiser Chronic obstructiv e pulmonary disease with acute exacerbati on Chronic obstructiv e pulmonary disease with acute exacerbati on Disease Active 2023-05 0-08 00:00: 00 [facility] Acute renal failure Acute renal failure Disease Active 2023-05 0-08 00:00: 00 [facility] Benign localized prostatic hyperplasi a with lower urinary tract symptoms (LUTS) Benign localized prostatic hyperplasi a with lower urinary tract symptoms (LUTS) Disease Active 2023-05 0- 00:00: 00 [facility] Congestive heart failure Congestive heart failure Disease Active 2023-05 0-08 00:00: 00 [facility] Diverticul itis Diverticul itis Disease Active 2023-05 0 00:00: 00 [facility] snf (current) use of antithromb otics/anti platelets snf (current) use of antithromb otics/anti platelets Disease Active 2023-05 0 00:00: 00 [facility] Transient ischemic attack Transient ischemic attack Disease Active 2023-05 0 00:00: 00 [facility] Chronic systolic heart failure (CMS/HCC) Chronic systolic heart failure (CMS/HCC) Disease Active 2023-05 0-04 00:00: 00 Yolis Kaiser 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) 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) Disease Active 2023-05 0-04 00:00: 00 [facility] Coronary artery disease involving sioux coronary artery of sioux heart without angina pectoris Coronary artery disease involving sioux coronary artery of sioux heart without angina pectoris Disease Active 2023-05 0-04 00:00: 00 [facility] Nonrheumat ic aortic (valve) stenosis Nonrheumat ic aortic (valve) stenosis Disease Active 8- 00:00: 00 oYlis Kaiser Severe aortic stenosis Severe aortic stenosis Disease Active 8 00:00: 00 [facility] CKD (chronic kidney disease) stage 4, GFR 15-29 ml/min CKD (chronic kidney disease) stage 4, GFR 15-29 ml/min Disease Active 8 00:00: 00 [facility] 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 Disease Active 4-15 00:00: 00 [facility] Basal cell carcinoma of face Basal cell carcinoma of face Disease Active 2017-05 00:00: 00 [facility] Hypertensi on Hypertensi on Disease Active 10-23 00:00: 00 [facility] PNEUMOTHOR AX PNEUMOTHOR AX Active 10/06/2016 [facility] Diagnosis Active 10-06 00:00: 00 2016-10-15 22:01:00 Yolis Young Hyperlipid emia Hyperlipid emia Disease Active 01-02 00:00: 00 Yolis Young Epic UNK UNK Active [facility] Diagnosis Active 01-02 00:00: 00 2016-01-25 11:14:00 Yolis Young INFRARENAL AORTIC ANEURYSM INFRARENAL AORTIC ANEURYSM Active 11/06/2015 [facility] Diagnosis Active 11-05 00:00: 00 2015-11-15 20:54:00 Yolis Young ACS (acute coronary syndrome) ACS (acute coronary syndrome) Disease Active 07-06 00:00: 00 [facility] TIA, AF, IC ATHEROSCLE ROSIS TIA, AF, IC ATHEROSCLE ROSIS Active 06/09/2015 [facility] Diagnosis Active 06-09 00:00: 00 2015-06-15 09:30:00 Yolis Young TIA TIA Active 06/09/2015 [facility] Diagnosis Active 2 00:00: 00 2015-06-09 18:53:00 Yolis Young Atrial fibrillati on with RVR Atrial fibrillati on with RVR Disease Active 05-22 00:00: 00 [facility] Diabetes type 2, controlled Diabetes type 2, controlled Disease Active 05-22 00:00: 00 [facility] ACS R/O ACS R/O Active 01/14/2012 [facility] Diagnosis Active 01-13 00:00: 00 2012-01-14 14:46:00 Yolis Young CHEST PAIN CHEST PAIN Active 01/14/2012 [facility] Diagnosis Active 01-13 00:00: 00 2012-01-14 14:45:00 Yolis Young [id number] Orchitis, left Problem Active [facility] [id number] Upper respirator y tract infection, unspecifie d type Problem Active [facility] [id number] Cough Problem Active [facility] Atrial fibrillati on (disorder) Atrial fibrillati on (disorder) [facility] [place] Problem Resolve d 2016-10-16 00:08:43 Yolis Young Smoker (finding) Smoker (finding) Resolved Problem 10/16/2016 [facility] QUOC [place] Problem Resolve d 2016-10-16 00:08:43 Yolis Young Tinnitus (finding) Tinnitus (finding) Resolved Problem 10/16/2016 [facility] WONGD [place] Problem Resolve d 2016-10-16 00:08:43 Yolis Young Chest pain Chest pain Active Problem 01/17/2012 [facility] Problem Active 2012-01-17 09:08:08 Yolis Young Chest pain (finding) Chest pain (finding) Active Problem 10/16/2016 [facility] QUOC [place] Problem Active 2016-10-16 00:08:43 Yolis Young Diabetes mellitus (disorder) Diabetes mellitus (disorder) Active Problem 10/16/2016 [facility] WONGD [place] Problem Active 2016-10-16 00:08:43 Yolis Young Hearing loss (finding) Hearing loss (finding) Active Problem 10/16/2016 [facility] WONGD [place] Problem Active 2016-10-16 00:08:43 Yolis Young Serum creatinine raised (finding) Serum creatinine raised (finding) Active Problem 10/16/2016 [facility] QUOC [place] Problem Active 2016-10-16 00:08:43 Yolis Young Sleep apnea (finding) Sleep apnea (finding) Active Problem 10/16/2016 [facility] QUOC [place] Problem Active 2016-10-16 00:08:43 Yolis Young CORONARY ARTERY ANOMALY CORONARY ARTERY ANOMALY Active [facility] Diagnosis Active 2012-01-14 14:46:00 Yolis Young TRANSIENT CEREBRAL ISCHEMIC ATTACK, UNSP TRANSIENT CEREBRAL ISCHEMIC ATTACK, UNSP Active [facility] Diagnosis Active 2015-06-15 09:30:00 Yolis Young ILLNESS, UNSPECIFIE D ILLNESS, UNSPECIFIE D Active [facility] Diagnosis Active 2015-11-15 20:54:00 Yolis Young ABDOMINAL AORTIC ANEURYSM, WITHOUT RUPTU ABDOMINAL AORTIC ANEURYSM, WITHOUT RUPTU Active [facility] Diagnosis Active 2016-01-25 11:14:00 Yolis Young Allergies, Adverse Reactions, Alerts Allergy Name Allergy Type Status Severity Reaction(s) Onset Date Inactive Date Treating Clinician Comments Source Statins Allergy to substanc e Active 08-09 00:00: 00 [facility] Statins Allergy to substanc e Active Unknown 07-24 00:00: 00 Other Reaction( s): Nausea/Vo miting [facility] Robaxin Robaxin Active Yolis Young statins statins Active Yolis Young Social History Social Habit Start Date Stop Date Quantity Comments Source Gender identity 2023-07-27 02:21:26 Identifies as male gender (finding) [facility] Sex Assigned At [facility] Sexual orientation [facility] History of tobacco use Cigarette Smoker [facility] History of Social function 2024-05-13 00:00:00 2024-05-13 00:00:00 [facility] Alcoholic beverage intake 2024-04-04 00:00:00 2024-04-04 00:00:00 Ex-drinker (finding) [facility] Cigarettes smoked current (pack per day) - Reported 2024-04-02 00:00:00 2024-04-02 00:00:00 [facility] Cigarette pack-years 2024-04-02 00:00:00 2024-04-02 00:00:00 [facility] Tobacco use and exposure 2023-04-24 00:00:00 2023-04-24 00:00:00 Smokeless tobacco non-user [facility] Alcohol Comment 2023-04-24 00:00:00 2023-04-24 00:00:00 quitted 15 years ago [facility] Exposure to SARS-CoV-2 (event) 2021-11-09 00:00:00 2021-11-19 11:01:00 Not sure [facility] Smoking Status Start Date Stop Date Source Smokes tobacco daily 2024-04-02 00:00:00 [facility] Tobacco smoking consumption unknown [facility] Social History 2016-10-06 23:40:51 Roberth Stanton Medications Ordered Medication Name Filled Medication Name Start Date Stop Date Current Medication? Ordering Clinician Indication Dosage Frequency Signature (SIG) Comments Components Source nicotine (Nicoderm, Step 3) 7 MG/24HR patch nicotine (Nicoderm, Step 3) 7 MG/24HR patch 06-03 00:00: 00 06-17 23:59 :00 No 1{patch } QD Place 1 patch over 24 hours on the skin 1 time each day for 14 doses. Do not start before June 03, 2024. Yolis Kaiser nicotine (Nicoderm, Step 2) 14 MG/24HR patch nicotine (Nicoderm, Step 2) 14 MG/24HR patch 05-20 00:00: 00 06-03 23:59 :00 No 1{patch } QD Place 1 patch over 24 hours on the skin 1 time each day for 14 doses. Do not start before May 20, 2024. Yolis Kaiser doxycycline (Vibramycin ) 100 MG capsule doxycycline (Vibramycin ) 100 MG capsule 05-20 00:00: 00 05-27 23:59 :00 No 100mg Q.5D Take 1 capsule by mouth in the morning and 1 capsule in the evening. Do all this for 7 days. Take with at least 8 ounces (large glass) of water, do not lie down for 30 minutes after. Yolis Kaiser LORazepam (Ativan) tablet 1 mg LORazepam (Ativan) tablet 1 mg 05-19 22:50: 36 05-19 23:29 :00 No 1mg 1 mg, Oral, Once as needed, anxiety, Starting on Fri05/19/24 at 2250, For 1 dose Yolis Kaiser potassium chloride CR (Klor-Con M20) ER tablet 20 mEq potassium chloride CR (Klor-Con M20) ER tablet 20 mEq 05-19 10:15: 00 05-19 10:32 :00 No 20meq 20 mEq, Oral, Once, On Fri05/19/24 at 1015, For 1 dose, For patients able to take medication s orally or via feeding tube >/= 14 [place], may dissolve each 20 mEq tablet in 4 oz of water. Allow about 2 minutes for the tablets to disintegra te. Stir before giving to prepare slurry and administer . Please exclude patient's with feeding tube less than 14 [place] (Dobhoff, J-tube, etc) and pediatric and patients Do not crush or chew. Yolis Kaiser EPINEPHrine in 0.9% sodium chloride (Adrenalin) 1 mg/10mL EPINEPHrine in 0.9% sodium chloride (Adrenalin) 1 mg/10mL 05-18 09:26: 00 05-18 09:49 :12 No As needed, Starting on Fri05/18/24 at 0926, Intraproce dure Yolis Kaiser lidocaine (Xylocaine) 4 % external solution lidocaine (Xylocaine) 4 % external solution 05-18 09:17: 00 05-18 09:49 :12 No As needed, Starting on Fri05/18/24 at 0917, Intraproce dure Yolis Kaiser sodium chloride 0.9 % infusion sodium chloride 0.9 % infusion 05-18 08:46: 45 05-18 08:48 :00 No 75mL/h 75 mL/hr, Intravenou s, Once as needed, Endoscopy, Starting on Fri05/18/24 at 0846, For 1 dose, Preprocedu re Yolis Kaiser meropenem (Merrem) 500 mg in sterile water injection meropenem (Merrem) 500 mg in sterile water injection 05-16 12:45: 00 05-23 12:44 :00 No 500mg Q12H 500 mg, Intravenou s, at 200 mL/hr, Administer over 3 Minutes, Every 12 hours, First dose on Fri05/16/24 at 1245, For 7 days, Dose adjusted by pharmacy per renal protocol Reconstitu te vial with 10 mL sterile water for injection. Prepare dose at bedside immediatel y prior to administra tion. Reconstitu tion: Shake immediatel y and vigorously . Withdraw entire contents and give IV push slowly over specified time., Suspected Indication (Select all that apply): Pneumonia Yolis Young Epic potassium chloride CR (Klor-Con M20) ER tablet 40 mEq potassium chloride CR (Klor-Con M20) ER tablet 40 mEq 05-16 08:30: 00 05-16 09:47 :00 No 40meq 40 mEq, Oral, Once, On Fri05/16/24 at 0830, For 1 dose, For patients able to take medication s orally or via feeding tube >/= 14 [place], may dissolve each 20 mEq tablet in 4 oz of water. Allow about 2 minutes for the tablets to disintegra te. Stir before giving to prepare slurry and administer . Please exclude patient's with feeding tube less than 14 [place] (Dobhoff, J-tube, etc) and pediatric and patients Do not crush or chew. Yolis Young Epic Potassium chloride solution 20 mEq Potassium chloride solution 20 mEq 05-16 03:00: 00 05-16 03:34 :00 No 20meq 20 mEq, Oral, Once, On Fri05/16/24 at 0300, For 1 dose, Mix with 4 oz (120ml) of water prior to administra tion Yolis Young Epic guaiFENesin (Mucinex) 12 hr tablet 600 mg guaiFENesin (Mucinex) 12 hr tablet 600 mg 05-15 17:00: 00 Yes 600mg Q.5D 600 mg, Oral, 2 times daily, First dose on 05/15/24 at 1700, Administer with plenty of fluids to ensure proper action. Do not crush, chew, or split. Yolis Young Epic bumetanide (Bumex) injection 1 mg bumetanide (Bumex) injection 1 mg 05-15 17:00: 00 Yes 1mg Q.5D 1 mg, Intravenou s, Administer over 2 Minutes, 2 times daily, First dose (after last modificati on) on 05/15/24 at 1700 [facility] acetaminoph en (Tylenol) tablet 650 mg acetaminoph en (Tylenol) tablet 650 mg 05-15 15:56: 37 Yes 650mg Q6H 650 mg, Oral, Every 6 hours PRN, mild pain (1-3), fever, Starting on 05/15/24 at 1556, Max acetaminop hen = 4000mg/day (4gm/day) [facility] Epic HYDROcodone -acetaminop hen ([place]) 5-325 MG per tablet 1 tablet HYDROcodone -acetaminop hen ([place]) 5-325 MG per tablet 1 tablet 05-15 15:56: 16 Yes 1{tbl} Q6H 1 tablet, Oral, Every 6 hours PRN, moderate pain (4-6), Starting on 05/15/24 at 1556 [facility] Epic morphine injection 2 mg morphine injection 2 mg 05-15 15:56: 16 Yes 2mg Q4H 2 mg, Intravenou s, Every 4 hours PRN, severe pain (7-10), Starting on 05/15/24 at 1556 [facility] Epic albuterol (2.5 MG/3ML) 0.083% nebulizer solution 2.5 mg albuterol (2.5 MG/3ML) 0.083% nebulizer solution 2.5 mg 05-15 15:08: 06 Yes 2.5mg Q4H 2.5 mg, Nebulizati on, Every 4 hours PRN, wheezing, Starting on 05/15/24 at 1508 [facility] Epic cefepime (Maxipime) 1 g in sterile water injection cefepime (Maxipime) 1 g in sterile water injection 05-15 12:30: 00 05-16 12:36 :11 No 1g Q12H 1 g, Intravenou s, at 120 mL/hr, Administer over 5 Minutes, Every 12 hours, First dose (after last modificati on) on 05/15/24 at 1230, For 5 days, Reconstitu te vial with 10 mL sterile water for injection. Prepare dose at bedside immediatel y prior to administra tion. Reconstitu tion: Shake immediatel y and vigorously . Withdraw entire contents and give IV push slowly over specified time., Suspected Indication (Select all that apply): Pneumonia Morenovanessa jennifer Young Epic NIFEdipine XL (Procardia XL) 60 mg NIFEdipine XL (Procardia XL) 60 mg 05-15 09:00: 00 Yes 60mg QD 60 mg, Oral, Daily, First dose on Fri05/15/24 at 0900, Do not crush, chew, or split. Yolis Young Epic sodium chloride 3 % nebulizer solution 3 mL sodium chloride 3 % nebulizer solution 3 mL 05-15 08:30: 00 Yes 3mL Q8H 3 mL, Nebulizati on, Every 8 hours, First dose on Fri05/15/24 at 0830 Yolis Jacksonann Epic Potassium chloride solution 40 mEq Potassium chloride solution 40 mEq 05-15 03:45: 00 05-15 03:46 :00 No 40meq 40 mEq, Oral, Once, On 05/15/24 at 0345, For 1 dose, Mix with 4 oz (120ml) of water prior to administra tion Yolis Young Epic cefepime (Maxipime) 1 g in sterile water injection cefepime (Maxipime) 1 g in sterile water injection 05-14 12:45: 00 05-15 12:20 :47 No 1g 1 g, Intravenou s, at 120 mL/hr, Administer over 5 Minutes, Every 24 hours, First dose on Fri05/14/24 at 1245, For 7 days, Reconstitu te vial with 10 mL sterile water for injection. Prepare dose at bedside immediatel y prior to administra tion. Reconstitu tion: Shake immediatel y and vigorously . Withdraw entire contents and give IV push slowly over specified time., Suspected Indication (Select all that apply): Pneumonia Memvanessa Jacksonann Epic nicotine (Nicoderm, Step 1) 21 MG/24HR patch 1 patch nicotine (Nicoderm, Step 1) 21 MG/24HR patch 1 patch 05-14 09:45: 00 Yes 1{patch } QD 1 patch, Transderma l, Administer over 24 Hours, Daily, First dose on Fri05/14/24 at 0945 Memvanessa Young [facility] montelukast (Singulair) tablet 10 mg montelukast (Singulair) tablet 10 mg 05-13 21:00: 00 Yes 10mg 10 mg, Oral, Nightly, First dose on Fri05/13/24 at 2100 [facility] acetylcyste ine (Mucomyst) 20 % solution 600 mg acetylcyste ine (Mucomyst) 20 % solution 600 mg 05-13 19:00: 00 05-15 08:25 :28 No 600mg Q.25D 600 mg, Nebulizati on, 4 times daily RT, First dose on Fri05/13/24 at 1900 [facility] Boost Glucose Control liquid 237 mL Boost Glucose Control liquid 237 mL 05-13 11:45: 00 Yes 1{conta iner} QD 237 mL (1 Container) , Oral, Daily, First dose on Fri05/13/24 at 1145 [facility] lidocaine (Xylocaine) 1 % injection lidocaine (Xylocaine) 1 % injection 05-13 11:40: 59 05-13 12:12 :46 No As needed, Starting on Fri05/13/24 at 1140, Intraproce dure [facility] acetylcyste ine (Mucomyst) 10 % nebulizer solution 6 mL acetylcyste ine (Mucomyst) 10 % nebulizer solution 6 mL 05-13 11:00: 00 05-13 15:16 :06 No 6mL Q.25D 6 mL, Nebulizati on, 4 times daily RT, First dose on Fri05/13/24 at 1100 [facility] tamsulosin (Flomax) 24 hr capsule 0.4 mg tamsulosin (Flomax) 24 hr capsule 0.4 mg 05-13 09:00: 00 Yes .4mg QD 0.4 mg, Oral, Daily, First dose on Fri05/13/24 at 0900 [facility] isosorbide dinitrate (Isordil) tablet 10 mg isosorbide dinitrate (Isordil) tablet 10 mg 05-13 09:00: 00 Yes 10mg [id number] 3D 10 mg, Oral, 3 times daily, First dose on Fri05/13/24 at 0900 Yolis Kaiser fluticasone (Flonase) nasal spray 2 spray fluticasone (Flonase) nasal spray 2 spray 05-13 09:00: 00 Yes 2{spray } Q.5D 2 spray, Each Nostril, 2 times daily, First dose on Fri05/13/24 at 0900, Shake gently. Before first use, prime pump (press 6 times until fine spray appears). After use, clean tip and replace cap. Yolis Kaiser finasteride (Proscar) tablet 5 mg finasteride (Proscar) tablet 5 mg 05-13 09:00: 00 Yes 5mg QD 5 mg, Oral, Daily, First dose on Fri05/13/24 at 0900, [facility] 3: Reproducti ve risk Hazardous Drug -- Refer to safe handling procedure PPE Matrix Yolis Kiaser ipratropium -albuterol (Duo-Neb) 0.5-2.5 mg/3 mL nebulizer solution 3 mL ipratropium -albuterol (Duo-Neb) 0.5-2.5 mg/3 mL nebulizer solution 3 mL 05-13 08:00: 00 Yes 3mL Q.25D 3 mL, Nebulizati on, 4 times daily RT, First dose on Fri05/13/24 at 0800 Yoils Kaiser hydrALAZINE (Apresoline ) tablet 100 mg hydrALAZINE (Apresoline ) tablet 100 mg 05-13 07:15: 00 Yes 100mg [id number] 3D 100 mg, Oral, Every 8 hours scheduled, First dose on Fri05/13/24 at 0715 Yolis Kaiser hydrALAZINE injection 10 mg hydrALAZINE injection 10 mg 05-13 07:06: 52 Yes 10mg Q4H 10 mg, Intravenou s, Every 4 hours PRN, high blood pressure, SBP>170, Starting on Fri05/13/24 at 0706 Yolis Kaiser rivaroxaban (Xarelto) tablet 15 mg rivaroxaban (Xarelto) tablet 15 mg 05-12 17:00: 00 Yes 15mg 15 mg, Oral, Daily with evening meal, First dose on Fri05/12/24 at 1700, Best administer ed with food or immediatel y before tube feedings. If ordered via NG or G-tube route, crush and mix with 50 mL water; give within 4 hours of mixing., On hold since 05/15/2024 at 0825 until manually unheld Yolis Kaiser predniSONE (Deltasone) tablet 40 mg predniSONE (Deltasone) tablet 40 mg 05-12 14:15: 00 05-17 14:27 :06 No 40mg QD 40 mg, Oral, Daily, First dose on Fri05/12/24 at 1415 Yolis Kaiser guaiFENesin (Robitussin ) 100 MG/5ML liquid 200 mg guaiFENesin (Robitussin ) 100 MG/5ML liquid 200 mg 05-12 14:15: 00 05-16 12:22 :32 No 200mg Q6H 200 mg, Oral, Every 6 hours, First dose on Fri05/12/24 at 1415, For 5 days Yolis Kaiser lidocaine PF (Xylocaine) 2 % injection lidocaine PF (Xylocaine) 2 % injection 05-12 14:03: 23 05-12 14:11 :06 No Infiltrati on, As needed, Starting on Fri05/12/24 at 1403, Intraproce dure Yolis Kaiser budesonide (Pulmicort) 0.5 MG/2ML nebulizer solution 0.5 mg budesonide (Pulmicort) 0.5 MG/2ML nebulizer solution 0.5 mg 05-12 10:00: 00 Yes .5mg Q.5D 0.5 mg, Nebulizati on, 2 times daily RT, First dose on Fri05/12/24 at 1000, Rinse mouth with water after use to reduce aftertaste and incidence of candidiasi s. Do not swallow. Yolis Kaiser amiodarone (Pacerone) tablet 100 mg amiodarone (Pacerone) tablet 100 mg 05-12 09:00: 00 Yes 100mg QD 100 mg, Oral, Daily, First dose on Fri05/12/24 at 0900 Yolis Kaiser bumetanide (Bumex) injection 2 mg bumetanide (Bumex) injection 2 mg 05-12 09:00: 00 05-15 10:26 :03 No 2mg Q.5D 2 mg, Intravenou s, Administer over 2 Minutes, 2 times daily, First dose on Fri05/12/24 at 0900 Yolis Young Epic nicotine (Nicoderm, Step 1) 21 MG/24HR patch 1 patch nicotine (Nicoderm, Step 1) 21 MG/24HR patch 1 patch 05-12 09:00: 00 05-13 07:06 :40 No 1{patch } QD 1 patch, Transderma l, Administer over 24 Hours, Daily, First dose on Fri05/12/24 at 0900 Yolis Kaiser pantoprazol e (ProtoNix) EC tablet 40 mg pantoprazol e (ProtoNix) EC tablet 40 mg 05-12 07:30: 00 Yes 40mg 40 mg, Oral, Daily before breakfast, First dose on Fri05/12/24 at 0730, Do not crush, chew, or split. Yolis Kaiser insulin lispro (HumaLOG, Admelog) injection 2-8 Units insulin lispro (HumaLOG, Admelog) injection 2-8 Units 05-12 00:31: 07 Yes 2U Q.[id number] 3D 2-8 Units, Subcutaneo us, 3 times daily PRN, high blood sugar, with meals, Starting on Fri05/12/24 at 0031, For BG < 70, follow hypoglycem ia protocol and notify ordering provider. If patient can eat or drink, give oral carbohydra te as ordered per hypoglycem ia protocol. If patient NPO, give dextrose 50 % IV as ordered per hypoglycem ia protocol. If NPO and no IV access, give glucagon IM as ordered per hypoglycem ia protocol. Check BG every 15 minutes and repeat treatment if continued BG < 80., Correction Insulin Dosing: (DO NOT CHANGE DEFAULT SELECTION/ VALUES): Starting, BG < 70 instructio ns: Follow Hypoglycem ia Orders, BG 70-149 instructio ns: No Dose Needed, BG 150-199: 2, BG 200-249: 4, BG 250-299: 6, BG >/= 300: 8, BG > 300 instructio ns: Contact Provider Yolis Kaiser carvedilol (Coreg) tablet 12.5 mg carvedilol (Coreg) tablet 12.5 mg 05-12 00:25: 00 Yes 12.5mg Q12H 12.5 mg, Oral, Every 12 hours, First dose on Fri05/12/24 at 0025 [facility] sodium chloride (NS) 0.9 % flush 10 mL sodium chloride (NS) 0.9 % flush 10 mL 05-12 00:25: 00 Yes 10mL Q.5D 10 mL, Intravenou s, Every 12 hours scheduled, First dose on Fri05/12/24 at 0025, Administer at least once every 12 hours [facility] glucagon injection 1 mg glucagon injection 1 mg 05-12 00:20: 48 Yes 1mg [facility] dextrose 50 % solution 25 g dextrose 50 % solution 25 g 05-12 00:20: 48 Yes 25g [facility] dextrose 50 % solution 12.5 g dextrose 50 % solution 12.5 g 05-12 00:20: 48 Yes 12.5g [facility] sodium chloride (NS) 0.9 % flush 10 mL sodium chloride (NS) 0.9 % flush 10 mL 05-12 00:20: 48 Yes 10mL [facility] cefepime (Maxipime) 1 g in sterile water injection cefepime (Maxipime) 1 g in sterile water injection 05-11 23:50: 00 05-11 23:55 :00 No 1g 1 g, Intravenou s, at 120 mL/hr, Administer over 5 Minutes, Once, On Fri05/11/24 at 2350, For 1 dose, Reconstitu te vial with 10 mL sterile water for injection. Prepare dose at bedside immediatel y prior to administra tion. Reconstitu tion: Shake immediatel y and vigorously . Withdraw entire contents and give IV push slowly over specified time., Suspected Indication (Select all that apply): Pneumonia Yolis Kaiser ipratropium -albuterol (Duo-Neb) 0.5-2.5 mg/3 mL nebulizer solution 3 mL ipratropium -albuterol (Duo-Neb) 0.5-2.5 mg/3 mL nebulizer solution 3 mL 05-11 23:32: 52 Yes 3mL 3 mL, Nebulizati on, As needed, wheezing, Starting on Fri05/11/24 at 2332 Yolis Kaiser furosemide (Lasix) injection 40 mg furosemide (Lasix) injection 40 mg 05-11 21:50: 00 05-11 21:50 :00 No 40mg 40 mg, Intravenou s, Once, On Fri05/11/24 at 2150, For 1 dose Yolis Kaiser LORazepam (Ativan) tablet 1 mg LORazepam (Ativan) tablet 1 mg 05-11 20:35: 00 05-11 20:54 :00 No 1mg 1 mg, Oral, Once, On Fri05/11/24 at 2035, For 1 dose Yolis Kaiser tamsulosin (Flomax) 0.4 MG 24 hr capsule tamsulosin (Flomax) 0.4 MG 24 hr capsule 2023-05 00:00: 00 Yes .4mg QD Take 1 capsule by mouth 1 time each day. Yolis Kaiser pantoprazol e (ProtoNix) 40 MG EC tablet pantoprazol e (ProtoNix) 40 MG EC tablet 2023-05 00:00: 00 04-28 23:59 :00 No 40mg Take 1 tablet by mouth in the morning. Take before meals. Do not crush, chew, or split. Yolis Kaiser nicotine (Nicoderm, Step 1) 21 MG/24HR patch nicotine (Nicoderm, Step 1) 21 MG/24HR patch 2023-05 00:00: 00 05-21 23:59 :00 Yes 1{patch } QD Place 1 patch over 24 hours on the skin 1 time each day for 23 doses. Yolis Kaiser lidocaine 4 % patch patch lidocaine 4 % patch patch 2023-05 00:00: 00 05-20 00:00 :00 No 1{patch } QD Apply 1 patch over 12 hours topically 1 time each day. Yolis Kaiser aspirin EC 81 MG EC tablet aspirin EC 81 MG EC tablet 2023-05 20:49: 32 04-27 00:00 :00 No 81mg QD Take 81 mg by mouth 1 time each day. Yolis Kaiser mometasone- formoterol (Dulera 200) 200-5 MCG/ACT inhaler mometasone- formoterol (Dulera 200) 200-5 MCG/ACT inhaler 2023-05 20:49: 32 04-27 00:00 :00 No 2{puff} Q.5D Inhale 2 puffs in the morning and 2 puffs in the evening. Rinse mouth with water after use to reduce aftertaste and incidence of candidiasi s. Do not swallow.. Yolis Kaiser amiodarone (Pacerone) 200 MG tablet amiodarone (Pacerone) 200 MG tablet 2023-05 20:49: 31 Yes 100mg QD Take 100 mg by mouth 1 time each day. Yolis Kaiser Fluticasone -Umeclidin- Vilant 100-62.5-25 MCG/ACT aerosol powder Fluticasone -Umeclidin- Vilant 100-62.5-25 MCG/ACT aerosol powder 2023-05 20:49: 31 Yes 1{inhal ation} QD Inhale 1 Inhalation 1 time each day. Yolis Kaiser rivaroxaban (Xarelto) 15 MG tablet rivaroxaban (Xarelto) 15 MG tablet 2023-05 00:00: 00 Yes 15mg Take 1 tablet by mouth at bedtime. Take with food. Yolis Kaiser diclofenac sodium 1 % gel diclofenac sodium 1 % gel 2023-05 00:00: 00 Yes 2g Q.[id number] 3D Apply 2 g topically in the morning and 2 g at noon and 2 g in the evening. Yolis Kaiser NIFEdipine CC (Adalat CC) 60 MG 24 hr tablet NIFEdipine CC (Adalat CC) 60 MG 24 hr tablet 2023-05 00:00: 00 04-27 23:59 :00 No 60mg Q.5D Take 1 tablet by mouth in the morning and 1 tablet in the evening. Do not crush, chew, or split.. Yolis Kaiser bumetanide (Bumex) 1 MG tablet bumetanide (Bumex) 1 MG tablet 2023-05 00:00: 00 04-27 23:59 :00 No 1mg Q.5D Take 1 tablet by mouth in the morning and 1 tablet in the evening. Yolis Kaiser carvedilol (Coreg) 12.5 MG tablet carvedilol (Coreg) 12.5 MG tablet 2023-05 00:00: 00 04-27 23:59 :00 No 12.5mg Q12H Take 1 tablet by mouth in the morning and 1 tablet in the evening. Yolis Kaiser hydrALAZINE (Apresoline ) 100 MG tablet hydrALAZINE (Apresoline ) 100 MG tablet 2023-05 00:00: 00 04-27 23:59 :00 No 100mg Q.[id number] 3D Take 1 tablet by mouth in the morning and 1 tablet at noon and 1 tablet before bedtime. Yolis Kaiser isosorbide dinitrate (Isordil) 10 MG tablet isosorbide dinitrate (Isordil) 10 MG tablet 2023-05 00:00: 00 04-27 23:59 :00 No 10mg Q.[id number] 3D Take 1 tablet by mouth in the morning and 1 tablet at noon and 1 tablet in the evening. Yolis Kaiser varenicline (Chantix) 0.5 MG tablet varenicline (Chantix) 0.5 MG tablet 2023-05 00:00: 00 05-20 00:00 :00 No Take 1 tablet by mouth 1 time each day for 3 days, THEN 1 tablet 2 times a day. Take with full glass of water.. Yolis Kaiser melatonin tablet 6 mg melatonin tablet 6 mg 2023-05 21:00: 00 Yes 6mg 6 mg, Oral, Nightly, First dose (after last modificati on) on 04/25/24 at 2100 Yolis Young [facility] bumetanide (Bumex) tablet 1 mg bumetanide (Bumex) tablet 1 mg 2023-05 17:00: 00 Yes 1mg Q.5D 1 mg, Oral, 2 times daily, First dose (after last modificati on) on 04/25/24 at 1700 Yolis Young [facility] bumetanide (Bumex) tablet 1 mg bumetanide (Bumex) tablet 1 mg 2023-05 09:00: 00 04-25 11:22 :17 No 1mg QD 1 mg, Oral, Daily, First dose (after last modificati on) on 04/25/24 at 0900 Yolis Young [facility] potassium chloride IVPB 20 mEq potassium chloride IVPB 20 mEq 2023-05 08:00: 00 04-24 12:54 :00 No 20meq Q2H 20 mEq, Intravenou s, at 50 mL/hr, Administer over 2 Hours, Every 2 hours, First dose on 04/24/24 at 0800, For 2 doses, For central line administra tion only. Yolis Young [facility] Potassium chloride solution 40 mEq Potassium chloride solution 40 mEq 2023-05 07:00: 00 04-24 07:28 :00 No 40meq 40 mEq, Oral, Once, On 04/24/24 at 0715, For 1 dose, Mix with 4 oz (120ml) of water prior to administra tion Yolis Young [facility] isosorbide dinitrate (Isordil) tablet 10 mg isosorbide dinitrate (Isordil) tablet 10 mg 2023-05 13:00: 00 Yes 10mg Q.[id number] 3D 10 mg, Oral, 3 times daily, First dose on Fri04/23/24 at 1300 Yolis Young [facility] bumetanide (Bumex) tablet 2 mg bumetanide (Bumex) tablet 2 mg 2023-05 09:00: 00 04-24 14:42 :05 No 2mg QD 2 mg, Oral, Daily, First dose (after last modificati on) on Fri04/22/24 at 0900 Yolis Kaiser gadobenate dimeglumine (Multihance ) injection 20 mL gadobenate dimeglumine (Multihance ) injection 20 mL 2023-05 02:11: 31 04-22 01:49 :00 No .1mmol/ kg 20 mL (rounded from 20.2 mL = 0.1 mmol/kg ?101 kg), Intravenou s, Once in imaging, Starting on Fri04/22/24 at 0211, For 1 dose Yolis Kaiser melatonin tablet 6 mg melatonin tablet 6 mg 2023-05 21:00: 00 04-25 18:29 :18 No 6mg 6 mg, Oral, Nightly, First dose on Fri04/20/24 at 2100 Yolis Kaiser potassium chloride CR (Klor-Con M20) ER tablet 20 mEq potassium chloride CR (Klor-Con M20) ER tablet 20 mEq 2023-05 09:00: 00 Yes 20meq QD 20 mEq, Oral, Daily, First dose on Fri04/20/24 at 0900, For patients able to take medication s orally or via feeding tube >/= 14 [place], may dissolve each 20 mEq tablet in 4 oz of water. Allow about 2 minutes for the tablets to disintegra te. Stir before giving to prepare slurry and administer . Please exclude patient's with feeding tube less than 14 [place] (Dobhoff, J-tube, etc) and pediatric and patients Do not crush or chew. Yolis Kaiser varenicline (Chantix) tablet 0.5 mg varenicline (Chantix) tablet 0.5 mg 2023-05 17:30: 00 Yes .5mg QD 0.5 mg, Oral, Daily, First dose on Fri04/19/24 at 1730, For 3 doses, Give with meals and with a full glass of water. Yolis Kaiser carvedilol (Coreg) tablet 12.5 mg carvedilol (Coreg) tablet 12.5 mg 2023-05 12:00: 00 Yes 12.5mg Q12H 12.5 mg, Oral, Every 12 hours, First dose (after last modificati on) on Fri04/19/24 at 1200 Yolis Young Epic magnesium sulfate in D5W IVPB 1 g magnesium sulfate in D5W IVPB 1 g 2023-05 06:00: 00 04-19 07:41 :00 No 1g 1 g, Intravenou s, at 100 mL/hr, Administer over 1 Hours, Once, On Fri04/19/24 at 0600, For 1 dose Yolis Young Epic Potassium chloride solution 20 mEq Potassium chloride solution 20 mEq 2023-05 06:00: 00 04-19 06:41 :00 No 20meq 20 mEq, Oral, Once, On Fri04/19/24 at 0600, For 1 dose, Mix with 4 oz (120ml) of water prior to administra tion Yolis Young Epic NIFEdipine XL (Procardia XL) 60 mg NIFEdipine XL (Procardia XL) 60 mg 2023-05 17:00: 00 Yes 60mg Q.5D 60 mg, Oral, 2 times daily, First dose (after last modificati on) on 04/18/24 at 2000, Do not crush, chew, or split. Yolis Kaiser Potassium chloride solution 40 mEq Potassium chloride solution 40 mEq 2023-05 02:00: 00 04-18 01:57 :00 No 40meq 40 mEq, Oral, Once, On 04/18/24 at 0200, For 1 dose, Mix with 4 oz (120ml) of water prior to administra tion Yolis Kaiser diclofenac sodium 1 % gel 2 g diclofenac sodium 1 % gel 2 g 2023-05 17:00: 00 Yes 2g Q.[id number] 3D 2 g, Topical, 3 times daily, First dose on 04/17/24 at 1700, Apply to painful area(s) Yolis Kaiser lidocaine 4 % patch 1 patch lidocaine 4 % patch 1 patch 2023-05 17:00: 00 Yes 1{patch } QD 1 patch, Apply externally , Administer over 12 Hours, Daily, First dose on 04/17/24 at 1700, Patch is applied to intact skin to cover painful area for up to 12 hours in a 24-hour period (12 hours on and 12 hours off). Apply to neck pain site. Remove old patch before applicatio n of new patch. Yolis Kaiser bumetanide (Bumex) injection 1 mg bumetanide (Bumex) injection 1 mg 2023-05 17:00: 00 04-21 11:25 :15 No 1mg Q.[id number] 3D 1 mg, Intravenou s, Administer over 2 Minutes, 3 times daily, First dose on 04/17/24 at 1700 Yolis Young Epic potassium chloride CR (Klor-Con M20) ER tablet 20 mEq potassium chloride CR (Klor-Con M20) ER tablet 20 mEq 2023-05 03:30: 00 04-17 04:58 :00 No 20meq 20 mEq, Oral, Once, On 04/17/24 at 0330, For 1 dose, For patients able to take medication s orally or via feeding tube >/= 14 [place], may dissolve each 20 mEq tablet in 4 oz of water. Allow about 2 minutes for the tablets to disintegra te. Stir before giving to prepare slurry and administer . Please exclude patient's with feeding tube less than 14 [place] (Dobhoff, J-tube, etc) and pediatric and patients Do not crush or chew. Yolis Kaiser rivaroxaban (Xarelto) tablet 15 mg rivaroxaban (Xarelto) tablet 15 mg 2023-05 21:00: 00 Yes 15mg 15 mg, Oral, Nightly, First dose (after last modificati on) on Fri04/16/24 at 2100, Best administer ed with food or immediatel y before tube feedings. If ordered via NG or G-tube route, crush and mix with 50 mL water; give within 4 hours of mixing. Yolis Kaiser Potassium chloride solution 20 mEq Potassium chloride solution 20 mEq 2023-05 18:30: 00 04-20 05:37 :56 No 20meq QD 20 mEq, Oral, Daily, First dose on Fri04/16/24 at 1830, Mix with 4 oz (120ml) of water prior to administra tion Yolis Young Epic magnesium sulfate in D5W IVPB 1 g magnesium sulfate in D5W IVPB 1 g 2023-05 18:30: 00 04-16 19:39 :00 No 1g 1 g, Intravenou s, at 100 mL/hr, Administer over 1 Hours, Once, On Fri04/16/24 at 1830, For 1 dose Yolis Young Epic NIFEdipine XL (Procardia XL) 30 mg NIFEdipine XL (Procardia XL) 30 mg 2023-05 17:00: 00 04-18 11:53 :08 No 30mg Q.5D 30 mg, Oral, 2 times daily, First dose (after last modificati on) on Fri04/16/24 at 1700, Do not crush, chew, or split. Yolis Young Epic hydrALAZINE (Apresoline ) tablet 100 mg hydrALAZINE (Apresoline ) tablet 100 mg 2023-05 14:00: 00 Yes 100mg Q.[id number] 3D 100 mg, Oral, Every 8 hours scheduled, First dose (after last modificati on) on Fri04/16/24 at 1400 Yolis Young Epic Potassium chloride solution 20 mEq Potassium chloride solution 20 mEq 2023-05 07:15: 00 04-16 08:18 :00 No 20meq 20 mEq, Oral, Once, On Fri04/16/24 at 0715, For 1 dose, Mix with 4 oz (120ml) of water prior to administra tion Yolis Young Epic magnesium sulfate IVPB 2 g magnesium sulfate IVPB 2 g 2023-05 16:00: 00 04-15 18:52 :00 No 2g 2 g, Intravenou s, at 25 mL/hr, Administer over 2 Hours, Once, On Fri04/15/24 at 1600, For 1 dose Yolis Young Epic Potassium chloride solution 40 mEq Potassium chloride solution 40 mEq 2023-05 16:00: 00 04-15 16:52 :00 No 40meq 40 mEq, Oral, Once, On Fri04/15/24 at 1600, For 1 dose, Mix with 4 oz (120ml) of water prior to administra tion Yolis Kaiser hydrALAZINE (Apresoline ) tablet 75 mg hydrALAZINE (Apresoline ) tablet 75 mg 2023-05 14:30: 00 04-16 10:44 :30 No 75mg Q.[id number] 3D 75 mg, Oral, Every 8 hours scheduled, First dose (after last modificati on) on Fri04/15/24 at 1430 Yolis Kaiser pantoprazol e (ProtoNix) EC tablet 40 mg pantoprazol e (ProtoNix) EC tablet 40 mg 2023-05 07:30: 00 Yes 40mg 40 mg, Oral, Daily before breakfast, First dose on Fri04/15/24 at 0730, Do not crush, chew, or split. Yolis Kaiser hydrALAZINE (Apresoline ) tablet 50 mg hydrALAZINE (Apresoline ) tablet 50 mg 2023-05 18:30: 00 04-15 13:49 :24 No 50mg Q8H 50 mg, Oral, Every 8 hours, First dose (after last modificati on) on Fri04/14/24 at 1830 Yolis Kaiser carvedilol (Coreg) tablet 6.25 mg carvedilol (Coreg) tablet 6.25 mg 2023-05 12:00: 00 04-19 08:54 :46 No 6.25mg Q12H 6.25 mg, Oral, Every 12 hours, First dose on Fri04/14/24 at 1200 Yolis Kaiser bumetanide (Bumex) 10 mg in sodium chloride 0.9 % 100 mL (0.1 mg/mL) infusion bumetanide (Bumex) 10 mg in sodium chloride 0.9 % 100 mL (0.1 mg/mL) infusion 2023-05 12:00: 00 04-17 14:31 :28 No 1mg/h 1 mg/hr (10 mL/hr), Intravenou s, Continuous , Starting on Fri04/14/24 at 1200 Yolis Kaiser hydrALAZINE (Apresoline ) tablet 25 mg hydrALAZINE (Apresoline ) tablet 25 mg 2023-05 10:30: 00 04-14 11:58 :03 No 25mg Q8H 25 mg, Oral, Every 8 hours, First dose on Fri04/13/24 at 1030 Yolis Kaiser Boost Breeze liquid 1 Container Boost Breeze liquid 1 Container 2023-05 17:00: 00 Yes 1{conta iner} Q.5D 1 Container, Oral, 2 times daily, First dose on Fri04/12/24 at 1700 Yolis Kaiser bumetanide (Bumex) injection 2 mg bumetanide (Bumex) injection 2 mg 2023-05 17:00: 00 04-14 11:59 :07 No 2mg Q.5D 2 mg, Intravenou s, Administer over 2 Minutes, 2 times daily, First dose on Fri04/12/24 at 1700 Yolis Kaiser rivaroxaban (Xarelto) tablet 20 mg rivaroxaban (Xarelto) tablet 20 mg 2023-05 21:00: 00 04-16 15:08 :39 No 20mg 20 mg, Oral, Nightly, First dose on Fri04/09/24 at 2100, Best administer ed with food or immediatel y before tube feedings. If ordered via NG or G-tube route, crush and mix with 50 mL water; give within 4 hours of mixing. Yolis Kaiser sodium bicarbonate tablet 650 mg sodium bicarbonate tablet 650 mg 2023-05 17:00: 00 Yes 650mg Q.[id number] 3D 650 mg, Oral, 3 times daily, First dose on Fri04/09/24 at 1700 Yolis Kaiser NIFEdipine XL (Procardia XL) 30 mg NIFEdipine XL (Procardia XL) 30 mg 2023-05 09:00: 00 04-16 10:44 :29 No 30mg QD 30 mg, Oral, Daily, First dose (after last modificati on) on Fri04/09/24 at 0900, Do not crush, chew, or split. Memoria l Powell Epic nicotine (Nicoderm, Step 1) 21 MG/24HR patch 1 patch nicotine (Nicoderm, Step 1) 21 MG/24HR patch 1 patch 2023-05 11:15: 00 05-20 08:59 :00 No 1{patch } QD [Order 1 Start] Name: nicotine (Nicoderm, Step 1) 21 MG/24HR patch 1 patch Signed Summary: 1 patch, Transderma l, Administer over 24 Hours, Daily, First dose on Fri04/08/24 at 1115, For 42 days [Order 1 End] [Order 2 Start] Name: nicotine (Nicoderm, Step 2) 14 MG/24HR patch 1 patch Signed Summary: 1 patch, Transderma l, Administer over 24 Hours, Daily, First dose on Fri05/20/24 at 0900, For 14 days [Order 2 End] [Order 3 Start] Name: nicotine (Nicoderm, Step 3) 7 MG/24HR patch 1 patch Signed Summary: 1 patch, Transderma l, Administer over 24 Hours, Daily, First dose on Fri06/03/24 at 0900, For 14 days [Order 3 End] Yolis Young Epic NIFEdipine XL (Procardia XL) 60 mg NIFEdipine XL (Procardia XL) 60 mg 2023-05 13:15: 00 04-09 05:03 :48 No 60mg QD 60 mg, Oral, Daily, First dose on Fri04/07/24 at 1315, Do not crush, chew, or split. Yolis Young Epic metoprolol succinate XL (Toprol-XL) 24 hr tablet 25 mg metoprolol succinate XL (Toprol-XL) 24 hr tablet 25 mg 2023-05 13:00: 00 04-14 11:57 :49 No 25mg Q.5D 25 mg, Oral, Every 12 hours scheduled, First dose on Fri04/07/24 at 1300, Do not crush or chew. Yolis Young Epic heparin 50 units/mL in sodium chloride 0.45 % heparin 50 units/mL in sodium chloride 0.45 % 2023-05 13:00: 00 04-09 12:49 :51 No .1U/kg/ h 0.1-40 Units/kg/h r ?104 kg (0.208-83. 2 mL/hr, rounded to 0.21-83.2 mL/hr), Intravenou s, Continuous , Starting on Fri04/07/24 at 1300, AFIB/Strok e PTT Weight Based Heparin Protocol Calculate heparin infusion dose using ACTUAL BODY WEIGHT. Start at 14 units/kg/h r (MAX INITIAL INFUSION = 1,200 units/hr = 24 mL/hr) - adjust per AFIB / Stroke Guidelines below Draw baseline PTT. Initiate drip. DO NOT wait for PTT results to start drip. Draw PTT 6 hours after drip initiation and 6 hours after every dose change. No heparin loading dose or bolus unless specifical ly ordered by provider. Do not draw PTT through line heparin is infused. --- Titration Table PTT < 30 sec: INCREASE dose by 4 units /kg/hr (Actual body Weight). Notify Provider STAT. Draw PTT 6 hours after increase in dose. PTT 30 - 45.9 sec: INCREASE dose by 3 units/kg/h r (Actual body Weight). Draw PTT 6 hours after increase in dose. PTT 46 - 59.9 sec: INCREASE dose by 2 units/kg/h r (Actual body Weight). Draw PTT 6 hours after increase in dose. PTT 60 - 79.9 sec: Therapeuti c, continue at same dose. Redraw PTT in 6 hours to confirm. Once 3 consecutiv e therapeuti c PTT, reduce draws to Q12H. PTT 80 - 90.9 sec: DECREASE dose by 1 unit/kg/hr (Actual Body Weight). Draw PTT 6 hours after decrease in dose. PTT 91 - 99.9 sec: HOLD infusion for 45 min. Notify provider STAT. DECREASE dose by 2 units/kg/h r (Actual Body Weight). Draw PTT 6 hours after decrease in dose. PTT 100 - 119.9 sec: HOLD infusion for 60 min. Notify provider STAT. DECREASE dose by 3 units/kg/h r (Actual Body Weight). Draw PTT 6 hours after decrease in dose. PTT 120 - 150.9 sec: HOLD infusion for 60 min. Notify provider STAT. DECREASE dose by 4 units/kg/h r (Actual Body Weight). Draw PTT 6 hours after decrease in dose. PTT >/= 151 sec: HOLD infusion and repeat PTT STAT through venipunctu re or separate line. Notify provider STAT. 1. If repeat PTT < 151 sec, then follow above protocol. 2. If repeat PTT >/= 151 sec, then continue to HOLD infusion & repeat PTT every 2 hours until PTT < 100 sec. Then DECREASE previous dose by 5 units/kg/h r (Actual Body Weight). Draw PTT 6 hours after decrease in dose --- Yolis Kaiser insulin lispro (HumaLOG, Admelog) injection 3-12 Units 251037 8005-1 2-03 15:35: 48 Yes 3U Q.[id number] 3D 3-12 Units, Subcutaneo us, 3 times daily PRN, high blood sugar, with meals, Starting on Fri04/06/24 at 1535, For BG < 70, follow hypoglycem ia protocol and notify ordering provider. If patient can eat or drink, give oral carbohydra te as ordered per hypoglycem ia protocol. If patient NPO, give dextrose 50 % IV as ordered per hypoglycem ia protocol. If NPO and no IV access, give glucagon IM as ordered per hypoglycem ia protocol. Check BG every 15 minutes and repeat treatment if continued BG < 80., Correction Insulin Dosing: (DO NOT CHANGE DEFAULT SELECTION/ VALUES): Medium, BG < 70 instructio ns: Follow Hypoglycem ia Orders, BG 70-149 instructio ns: No Dose Needed, BG 150-199: 3, BG 200-249: 6, BG 250-299: 9, BG >/= 300: 12, BG > 300 instructio ns: Contact Provider Yolis Kaiser glucagon injection 1 mg glucagon injection 1 mg 2023-05 15:35: 39 Yes 1mg 1 mg, Intramuscu lar, As needed, For BG < 70 mg/dL if no IV access and patient is either Unconsciou s, unable to swallow or npo, Starting on Fri04/06/24 at 1535, For BG < 70 mg/dL if no IV access and patient is either Unconsciou s, unable to swallow or npo and notify . Yolis Kaiser dextrose 50 % solution 25 g dextrose 50 % solution 25 g 2023-05 15:35: 39 Yes 25g 25 g, Intravenou s, As needed, other, if Blood Glucose </= 50 mg/dL, Starting on Fri04/06/24 at 1535, If BG </=50 mg/dL, give 50 mL of D50W IV push STAT and notify MD. Yolis Kaiser dextrose 50 % solution 12.5 g dextrose 50 % solution 12.5 g 2023-05 15:35: 39 Yes 12.5g 12.5 g, Intravenou s, As needed, low blood sugar, if Blood Glucose 51- 69 mg/dL, Starting on Fri04/06/24 at 1535, For BG 51-69 mg/dL and patient UNCONSCIOU S OR UNABLE TO SWALLOW OR NPO: Give 25 mL of D50W IV push and notify MD. Yolis Kaiser hydrALAZINE (Apresoline ) tablet 50 mg hydrALAZINE (Apresoline ) tablet 50 mg 2023-05 04:30: 00 04-08 11:53 :14 No 50mg Q8H 50 mg, Oral, Every 8 hours, First dose (after last modificati on) on Fri04/06/24 at 0430 Yolis Kaiser morphine PF injection 2 mg morphine PF injection 2 mg 2023-05 02:30: 46 Yes 2mg Q8H 2 mg, Intravenou s, Every 8 hours PRN, severe pain (7-10), Starting on Fri04/06/24 at 0230 Yolis Kaiser pantoprazol e (ProtoNix) injection 40 mg pantoprazol e (ProtoNix) injection 40 mg 2023-05 00:45: 00 04-14 10:42 :57 No 40mg QD 40 mg, Intravenou s, Daily, First dose on Fri04/06/24 at 0045, Until Discontinu ed Yolis Kaiser hydrALAZINE injection 10 mg hydrALAZINE injection 10 mg 2023-05 00:15: 00 Yes 10mg 10 mg, Intravenou s, Once, On Fri04/06/24 at 0015, For 1 dose Yolis Kaiser niCARdipine (Cardene) 40 mg/200 mL NS (0.2 mg/mL) premix niCARdipine (Cardene) 40 mg/200 mL NS (0.2 mg/mL) premix 2023-05 00:15: 00 04-07 06:14 :24 No 2.5mg/h 2.5-15 mg/hr (12.5-75 mL/hr), Intravenou s, Continuous , Starting on Fri04/06/24 at 0015, Infusion Type: Titrate, Initial Dose (mg/hr): 2.5, Titrate by (mg/hr): 2.5, Every (minutes): 15, Target Blood Pressure (mmHg): SBP less than 180 mmHg, Max Dose (mg/hr): 15 Yolis Kaiser isosorbide dinitrate (Isordil) tablet 40 mg isosorbide dinitrate (Isordil) tablet 40 mg 2023-05 23:30: 00 04-08 11:53 :14 No 40mg Q8H 40 mg, Oral, Every 8 hours, First dose (after last modificati on) on Fri04/05/24 at 2330 Yolis Young Epic fentaNYL (PF) (Sublimaze) 100 MCG/2ML injection - Pyxis Override Pull fentaNYL (PF) (Sublimaze) 100 MCG/2ML injection - Pyxis Override Pull 2023-05 16:16: 45 04-05 16:30 :00 No Starting on Fri04/05/24 at 1616, For 1 dose, Created by cabinet aguila Kaiser midazolam (Versed) 2 MG/2ML injection - Pyxis Override Pull midazolam (Versed) 2 MG/2ML injection - Pyxis Override Pull 2023-05 16:16: 25 04-05 17:45 :00 No Starting on Fri04/05/24 at 1616, For 1 dose, Created by cabinet aguila Young Epic magnesium sulfate in D5W IVPB 1 g magnesium sulfate in D5W IVPB 1 g 2023-05 08:00: 00 04-05 09:37 :00 No 1g 1 g, Intravenou s, at 100 mL/hr, Administer over 1 Hours, Once, On Fri04/05/24 at 0800, For 1 dose Yolis Kaiser albuterol (2.5 MG/3ML) 0.083% nebulizer solution 2.5 mg albuterol (2.5 MG/3ML) 0.083% nebulizer solution 2.5 mg 2023-05 07:00: 00 04-05 10:59 :40 No 2.5mg Q.25D 2.5 mg, Nebulizati on, 4 times daily RT, First dose (after last modificati on) on Fri04/05/24 at 0700 Yolis Kaiser hydrALAZINE (Apresoline ) tablet 25 mg hydrALAZINE (Apresoline ) tablet 25 mg 2023-05 04:30: 00 04-05 23:26 :53 No 25mg Q8H 25 mg, Oral, Every 8 hours, First dose (after last modificati on) on Fri04/05/24 at 0430 Yolis Kaiser carvedilol (Coreg) tablet 12.5 mg carvedilol (Coreg) tablet 12.5 mg 2023-05 00:30: 00 04-07 10:42 :32 No 12.5mg 12.5 mg, Oral, 2 times daily with meals, First dose (after last modificati on) on Fri04/05/24 at 0030 Yolis Kaiser acetaminoph en (Tylenol) tablet 650 mg acetaminoph en (Tylenol) tablet 650 mg 2023-05 20:20: 19 Yes 650mg Q6H 650 mg, Oral, Every 6 hours PRN, mild pain (1-3), Starting on Fri04/04/24 at 2020, Max acetaminop hen = 4000mg/day (4gm/day) Yolis Kaiser carvedilol (Coreg) tablet 6.25 mg carvedilol (Coreg) tablet 6.25 mg 2023-05 17:30: 00 04-04 23:51 :56 No 6.25mg 6.25 mg, Oral, 2 times daily with meals, First dose (after last modificati on) on Fri04/04/24 at 1730 Yolis Kaiser nitroglycer in (Tridil) 100 mg/250 mL D5W (400 mcg/mL) infusion nitroglycer in (Tridil) 100 mg/250 mL D5W (400 mcg/mL) infusion 2023-05 13:45: 00 04-06 06:54 :42 No 10ug/mi n 10-200 mcg/min (1.5-30 mL/hr), Intravenou s, Continuous , Starting on Fri04/04/24 at 1345, Verify patient has not taken Viagra, Cialis or Levitra in last 24 hours; if taken, hold NTG, Infusion Type: Titrate, Initial Dose (mcg/min): 10, Titrate by (mcg/min): 10, Every (minutes): 5, Goal: Chest Pain, Other, Specify Goal: SBP 140-180, Max Dose (mcg/min): 200 Yolis Kaiser furosemide (Lasix) injection 80 mg furosemide (Lasix) injection 80 mg 2023-05 13:45: 00 04-04 13:49 :00 No 80mg 80 mg, Intravenou s, Once, On 04/04/24 at 1345, For 1 dose Yolis Kaiser nitroglycer in (Tridil) 100 mg/250 mL D5W (400 mcg/mL) infusion - Pyxis Override Pull nitroglycer in (Tridil) 100 mg/250 mL D5W (400 mcg/mL) infusion - Pyxis Override Pull 2023-05 13:36: 50 04-05 01:44 :00 No Starting on Fri04/04/24 at 1336, For 1 dose, Created by cabinet override Yolis Kaiser hydrALAZINE (Apresoline ) tablet 25 mg hydrALAZINE (Apresoline ) tablet 25 mg 2023-05 12:30: 00 04-04 23:51 :26 No 25mg Q8H 25 mg, Oral, Every 8 hours, First dose on 04/04/24 at 1230 Yolis Kaiser guaiFENesin (Mucinex) 12 hr tablet 600 mg guaiFENesin (Mucinex) 12 hr tablet 600 mg 2023-05 12:14: 23 Yes 600mg Q.5D 600 mg, Oral, 2 times daily PRN, cough, Starting on 04/04/24 at 1214, Administer with plenty of fluids to ensure proper action. Do not crush, chew, or split. Yolis Kaiser sodium bicarbonate tablet 650 mg sodium bicarbonate tablet 650 mg 2023-05 19:00: 00 04-07 16:59 :00 No 650mg [id number] 3D 650 mg, Oral, 3 times daily, First dose on 04/03/24 at 1900, For 4 days Yolis Kaiser hydrALAZINE injection 10 mg hydrALAZINE injection 10 mg 2023-05 17:25: 00 04-04 12:27 :10 No 10mg Q4H 10 mg, Intravenou s, Every 4 hours PRN, high blood pressure, SBP>170, Starting on 04/03/24 at 1725, For 3 days Yolis Kaiser isosorbide mononitrate ER (Imdur) 24 hr tablet 30 mg isosorbide mononitrate ER (Imdur) 24 hr tablet 30 mg 2023-05 17:00: 00 04-04 13:40 :51 No 30mg QD 30 mg, Oral, Daily, First dose on 04/03/24 at 1700, Do not crush, chew, or split. Yolis Kaiser losartan (Cozaar) tablet 25 mg losartan (Cozaar) tablet 25 mg 2023-05 13:15: 00 04-04 12:27 :02 No 25mg QD 25 mg, Oral, Daily, First dose on 04/03/24 at 1315, On hold since Fri04/03/2024 at 1517 until manually unheld Yolis Kaiser montelukast (Singulair) tablet 10 mg montelukast (Singulair) tablet 10 mg 2023-05 21:00: 00 Yes 10mg 10 mg, Oral, Nightly, First dose on Fri04/02/24 at 2100 Yolis Kaiser cetirizine (ZyrTEC) tablet 10 mg cetirizine (ZyrTEC) tablet 10 mg 2023-05 21:00: 00 Yes 10mg 10 mg, Oral, Nightly, First dose on Fri04/02/24 at 2100 Yolis Kaiser pantoprazol e (Protonix) 80 mg in sodium chloride 0.9 % 100 mL infusion pantoprazol e (Protonix) 80 mg in sodium chloride 0.9 % 100 mL infusion 2023-05 11:15: 00 04-05 13:06 :00 No 8mg/h 8 mg/hr (10 mL/hr), Intravenou s, Continuous , Starting on Fri04/02/24 at 1115, For 72 hours, Check with provider for scheduled dosing after completion of continuous infusion. Yolis Kaiser cefTRIAXone (Rocephin) 1 g in sterile water injection cefTRIAXone (Rocephin) 1 g in sterile water injection 2023-05 11:15: 00 04-02 16:07 :04 No 1g 1 g, Intravenou s, Administer over 5 Minutes, Every 24 hours, First dose on Fri04/02/24 at 1115, For 7 days, Reconstitu te vial with 10 mL sterile water for injection. Prepare dose at bedside immediatel y prior to administra tion. Reconstitu tion: Shake immediatel y and vigorously . Withdraw entire contents and give IV push slowly over specified time., Suspected Indication (Select all that apply): Medical Prophylaxi s, Indication s: Intra-abdo rosie Infection prophylaxi s Yolis Young Epic octreotide (SandoSTATI N) 500 mcg in sodium chloride 0.9 % 100 mL (5 mcg/mL) infusion octreotide (SandoSTATI N) 500 mcg in sodium chloride 0.9 % 100 mL (5 mcg/mL) infusion 2023-05 11:15: 00 04-02 16:07 :04 No 50ug/h 50 mcg/hr (10 mL/hr), Intravenou s, Continuous , Starting on Fri04/02/24 at 1115, For 5 days Yolis Young Epic octreotide (SandoSTATI N) injection 50 mcg octreotide (SandoSTATI N) injection 50 mcg 2023-05 11:15: 00 04-02 12:08 :00 No 50ug 50 mcg, Intravenou s, Once, On Fri04/02/24 at 1115, For 1 dose, For patients with suspected variceal bleeding Yolis Kaiser ipratropium (Atrovent) 0.02 % nebulizer solution 0.5 mg ipratropium (Atrovent) 0.02 % nebulizer solution 0.5 mg 2023-05 11:00: 00 Yes .5mg Q.25D 0.5 mg, Nebulizati on, 4 times daily RT, First dose on Fri04/02/24 at 1100 Yolis Kaiser albuterol (2.5 MG/3ML) 0.083% nebulizer solution 2.5 mg albuterol (2.5 MG/3ML) 0.083% nebulizer solution 2.5 mg 2023-05 11:00: 00 04-05 01:09 :54 No 2.5mg Q.[id number] 7D 2.5 mg, Nebulizati on, Every 4 hours RT, First dose on Fri04/02/24 at 1100 Yolis Kaiser budesonide (Pulmicort) 0.5 MG/2ML nebulizer solution 0.5 mg budesonide (Pulmicort) 0.5 MG/2ML nebulizer solution 0.5 mg 2023-05 10:30: 00 Yes .5mg Q.5D 0.5 mg, Nebulizati on, 2 times daily RT, First dose on Fri04/02/24 at 1030, Rinse mouth with water after use to reduce aftertaste and incidence of candidiasi s. Do not swallow. Yolis Kaiser pantoprazol e (ProtoNix) 40 mg in sodium chloride (PF) 0.9 % 10 mL IVP pantoprazol e (ProtoNix) 40 mg in sodium chloride (PF) 0.9 % 10 mL IVP 2023-05 09:45: 00 04-02 11:13 :21 No 40mg Q12H 40 mg, Intravenou s, Every 12 hours, First dose on Fri04/02/24 at 0945, Until Discontinu ed Yolis Kaiser glucagon injection 1 mg glucagon injection 1 mg 2023-05 09:30: 13 Yes 1mg 1 mg, Intramuscu lar, As needed, For BG < 70 mg/dL if no IV access and patient is either Unconsciou s, unable to swallow or npo, Starting on Fri04/02/24 at 0930, For BG < 70 mg/dL if no IV access and patient is either Unconsciou s, unable to swallow or npo and notify MD. Yolis Young [facility] dextrose 50 % solution 25 g dextrose 50 % solution 25 g 2023-05 09:30: 13 Yes 25g 25 g, Intravenou s, As needed, other, if Blood Glucose </= 50 mg/dL, Starting on Fri04/02/24 at 0930, If BG </=50 mg/dL, give 50 mL of D50W IV push STAT and notify MD. Yolis Young [facility] dextrose 50 % solution 12.5 g dextrose 50 % solution 12.5 g 2023-05 09:30: 13 Yes 12.5g 12.5 g, Intravenou s, As needed, low blood sugar, if Blood Glucose 51- 69 mg/dL, Starting on Fri04/02/24 at 0930, For BG 51-69 mg/dL and patient UNCONSCIOU S OR UNABLE TO SWALLOW OR NPO: Give 25 mL of D50W IV push and notify MD. Yolis Young [facility] amiodarone (Pacerone) tablet 100 mg amiodarone (Pacerone) tablet 100 mg 2023-05 09:15: 00 Yes 100mg QD 100 mg, Oral, Daily, First dose on Fri04/02/24 at 0915 Yolis Young [facility] tamsulosin (Flomax) 24 hr capsule 0.4 mg tamsulosin (Flomax) 24 hr capsule 0.4 mg 2023-05 09:15: 00 Yes .4mg QD 0.4 mg, Oral, Daily, First dose on Fri04/02/24 at 0915 Yolis Young [facility] finasteride (Proscar) tablet 5 mg finasteride (Proscar) tablet 5 mg 2023-05 09:15: 00 Yes 5mg QD 5 mg, Oral, Daily, First dose on Fri04/02/24 at 0915, [facility]: Reproducti ve risk Hazard[facility] Drug -- Refer to safe handling procedure PPE Matrix Yolis Kaiser nitroglycer in (Nitrostat) SL tablet 0.4 mg nitroglycer in (Nitrostat) SL tablet 0.4 mg 2023-05 09:05: 02 Yes .4mg 0.4 mg, Sublingual , Every 5 min PRN, chest pain, Starting on Fri04/02/24 at 0905, May administer up to 3 doses per episode. Yolis Young Epic sodium chloride (NS) 0.9 % flush 10 mL sodium chloride (NS) 0.9 % flush 10 mL 2023-05 09:00: 00 Yes 10mL Q.5D 10 mL, Intravenou s, Every 12 hours scheduled, First dose on Fri04/02/24 at 0900, Administer at least once every 12 hours Yolis Young Epic sodium chloride (NS) 0.9 % flush 10 mL sodium chloride (NS) 0.9 % flush 10 mL 2023-05 08:44: 18 Yes 10mL Yolis Young Epic NIFEdipine XL (Procardia XL) 30 MG NIFEdipine XL (Procardia XL) 30 MG 2023-05 00:00: 00 04-27 00:00 :00 No 30mg QD Take 30 mg by mouth 1 time each day. Yolis Young Epic Mometasone Furo-Formot madeline Fum (Dulera) 50-5 MCG/ACT aerosol 2023-05 0-16 09:46: 56 Yes Inhale. [facility] nitroglycer in (Nitrostat) 0.4 MG SL tablet 2023-05 0- 00:00: [id number] 1 tablet (0.4 mg total) under the tongue every 5 (five) minutes if needed for chest pain. [facility] isosorbide mononitrate 20 MG tablet 2023-05 0-03 00:00: 00 02-09 00:00 :00 No [id number] 20mg QD Take 1 tablet (20 mg total) by mouth 1 (one) time each day. [facility] empaglifloz in (Jardiance) 10 MG 2023-05 0- 00:00: 00 02-09 00:00 :00 No [id number] 10mg QD Take 1 tablet (10 mg total) by mouth 1 (one) time each day. [facility] Aspirin Low Dose 81 MG EC tablet 01-30 00:00: 00 Yes 81mg QD Take 81 mg by mouth 1 (one) time each day. [facility] amiodarone (Pacerone) 200 MG tablet 01-30 00:00: 00 Yes 200mg QD Take 200 mg by mouth 1 (one) time each day. Taking 1/2 daily [facility] cetirizine (ZyrTEC) 10 MG tablet 8-30 00:00: 00 Yes 10mg QD Take 10 mg by mouth 1 (one) time each day. [facility] amLODIPine (Norvasc) 10 MG tablet - 00:00: 00 Yes 10mg QD Take 10 mg by mouth 1 (one) time each day. [facility] Fluticasone -Umeclidin- Vilant (Trelegy Ellipta) 100-62.5-25 MCG/ACT aerosol powder 09-24 10:55: 16 Yes [id number] 1{puff} QD Inhale 1 puff 1 (one) time each day. [facility] Repatha SureClick 140 MG/ML solution auto-inject or 09-24 00:00: 00 Yes [id number] 140mg Q14D Inject 140 mg under the skin every 14 (fourteen) days. [facility] fluticasone (Flonase) 50 MCG/ACT nasal spray fluticasone (Flonase) 50 MCG/ACT nasal spray 08-17 00:00: 00 Yes 50ug 50 microgram = 1 spray, NASAL, Q4H, PRN Congestion , 0 Refill(s) Yolis Young Epic nitroglycer in (Nitrostat) 0.4 MG SL tablet nitroglycer in (Nitrostat) 0.4 MG SL tablet 08-17 00:00: 00 Yes .4mg 0.4 mg = 1 tab, SL, Q5Min, PRN chest pain, 0 Refill(s) Yolis Young Epic evolocumab (Repatha SureClick) 140 MG/ML injection evolocumab (Repatha SureClick) 140 MG/ML injection 08-17 00:00: 00 05-20 00:00 :00 No 140mg 140 mg, SUB-Q, Q14D, # 2 ea, 0 Refill(s), Pharmacy: [facility], Meds to bed. HVI2, RM#115, 177.8, cm, 08/18/23 8:54:00 CDT, Height, 107.273, kg, 08/18/23 8:54:00 CDT, Weight Yolis Kaiser cetirizine (ZyrTEC) 10 MG tablet cetirizine (ZyrTEC) 10 MG tablet 0 08-10 00:00: 00 Yes 10mg 10 mg = 1 tab, PO, Daily, # 30 tab, 3 Refill(s) Yolis Kaiser montelukast (Singulair) 10 MG tablet montelukast (Singulair) 10 MG tablet 0 08-10 00:00: 00 Yes 10mg 10 mg = 1 tab, PO, Bedtime, # 30 tab, 0 Refill(s) Yolis Kaiser finasteride (Proscar) 5 MG tablet finasteride (Proscar) 5 MG tablet 0 08-10 00:00: 00 Yes 5mg 5 mg = 1 tab, PO, Daily, # 90 tab, 1 Refill(s) Yolis Kaiser glimepiride (Amaryl) 1 MG tablet glimepiride (Amaryl) 1 MG tablet 0 08-10 00:00: 00 05-20 00:00 :00 No 1mg 1 mg = 1 tab, PO, Breakfast, # 30 tab, 0 Refill(s) Yolis Young [facility] losartan (Cozaar) 50 MG tablet losartan (Cozaar) 50 MG tablet 08-10 00:00: 00 04-27 00:00 :00 No 50mg Q.5D Take 50 mg by mouth in the morning and 50 mg in the evening. Yolis Kaiser isosorbide mononitrate 20 MG tablet isosorbide mononitrate 20 MG tablet 0 -08 00:00: 00 04-27 00:00 :00 No 20mg 20 mg = 1 tab, PO, Daily, # 60 tab, 0 Refill(s) Yolis jennifer Hector Kaiser metoprolol succinate XL (Kapspargo) 50 MG 24 hr capsule metoprolol succinate XL (Kapspargo) 50 MG 24 hr capsule 08-10 00:00: 00 04-27 00:00 :00 No 25mg Q.5D Take 25 mg by mouth in the morning and 25 mg in the evening. Yolis jennifer Young [facility] tamsulosin (Flomax) 0.4 MG 24 hr capsule tamsulosin (Flomax) 0.4 MG 24 hr capsule 08-10 00:00: 00 04-27 00:00 :00 No .4mg 0.4 mg = 1 cap, PO, Daily, # 90 cap, 0 Refill(s) Yolis Young [facility] furosemide (Lasix) 40 MG tablet furosemide (Lasix) 40 MG tablet 08-10 00:00: 00 04-27 00:00 :00 No 40mg 40 mg = 1 tab, PO, PRN, PRN Edema, # 90 tab, 1 Refill(s) Morenovanessa jennifer Powell [facility] rivaroxaban (Xarelto) 20 MG tablet rivaroxaban (Xarelto) 20 MG tablet 08-10 00:00: 00 04-27 00:00 :00 No 20mg 20 mg, PO, QPM, tab, 0 Refill(s) Yolis jennifer Hector [facility] finasteride (Proscar) 5 MG tablet 08-07 00:00: 00 Yes 1 (one) time each day at the same time. [facility] ciprofloxac in (Cipro) 500 MG tablet 07-30 12:02: 23 07-30 00:00 :00 No Q.5D Take by mouth 2 (two) times a day. [facility] nitroglycer in (Nitrostat) 0.4 MG SL tablet 07-30 12:00: [address] 0.4 mg under the tongue every 5 (five) minutes if needed for chest pain. [facility] levalbutero l (Xopenex) 1.25 MG/3ML nebulizer solution 07-21 00:00: 00 02-09 00:00 :00 No [facility] nitroglycer in (Nitrostat) 0.4 MG SL tablet 2022-05 11:14: 15 Yes [facility] ciprofloxac in (Cipro) 500 MG tablet 2022-05 11:14: 15 Yes Q.5D Take by mouth 2 (two) times a day. [facility] metoprolol succinate XL (Toprol-XL) 50 MG 24 hr tablet 2022-05 00:00: 00 Yes [id number] 50mg QD Take 1 tablet (50 mg total) by mouth 1 (one) time each day. [facility] cetirizine (ZyrTEC) 10 MG tablet 2022-05 00:00: 00 Yes 10mg QD Take 10 mg by mouth 1 (one) time each day. [facility] fluticasone (Flonase) 50 MCG/ACT nasal spray 2022-05 00:00: 00 Yes 1{spray } QD 1 spray 1 (one) time each day. [facility] albuterol 108 (90 Base) MCG/ACT inhaler 2022-05 00:00: 00 02-09 00:00 :00 No 1{puff} Q6H 1 puff every 6 (six) hours if needed. [facility] metoprolol succinate XL (Toprol-XL) 50 MG 24 hr tablet 2022-05 00:00: 00 04-24 00:00 :00 No 50mg Q.5D Take 50 mg by mouth in the morning and 50 mg before bedtime. [facility] nitroglycer in (Nitrostat) 0.4 MG SL tablet 01-13 16:25: 28 Yes [facility] ciprofloxac in (Cipro) 500 MG tablet 01-13 16:19: 12 Yes Q.5D Take by mouth 2 (two) times a day. [facility] oseltamivir (Tamiflu) 75 MG capsule 5-04 00:00: 00 09-11 04:59 :00 No 75mg Q12H Take 75 mg by mouth every 12 (twelve) hours. [facility] mupirocin (Bactroban) 2 % ointment 3-30 00:00: 00 Yes 1{appli cation} Q.[id number] 3D Apply 1 applicatio n topically in the morning and 1 applicatio n at noon and 1 applicatio n in the evening. APPLY TO AFFECTED AREA 3 TIMES A DAY FOR 10 DAYS. [facility] losartan (Cozaar) 50 MG tablet -12 00:00: 00 02-09 00:00 :00 No [id number] 50mg Q.5D Take 1 tablet (50 mg total) by mouth in the morning and 1 tablet (50 mg total) in the evening. [facility] nitroglycer in (Nitrostat) 0.4 MG SL tablet 11-19 11:09: 41 Yes [facility] ciprofloxac in (Cipro) 500 MG tablet 11-19 11:09: 41 Yes Q.5D Take by mouth 2 (two) times a day. [facility] losartan (Cozaar) 100 MG tablet 09-10 00:00: 00 Yes [id number] 100mg QD Take 1 tablet (100 mg total) by mouth 1 (one) time each day. [facility] technetium Tc-99m sestamibi (Cardiolite ) radio-isoto pe injection 18-45 millicurie - 15:58: [address] [place] [address] technetium Tc-99m sestamibi (Cardiolite ) radio-isoto pe injection 18-45 millicurie 08-23 15:58: [address] [place] [address] technetium Tc-99m sestamibi (Cardiolite ) radio-isoto pe injection 8-18 millicurie 19 19:51: [address] [place] [address] technetium Tc-99m sestamibi (Cardiolite ) radio-isoto pe injection 8-18 millicurie 19 19:51: [address] [place] [address] ciprofloxac in (Cipro) 500 MG tablet 4-07 16:25: 32 Yes Q.5D Take by mouth 2 (two) times a day. [facility] nitroglycer in (Nitrostat) 0.4 MG SL tablet 08-09 16:25: 32 02-04 00:00 :[address] 0.4 mg under the tongue every 5 (five) minutes if needed for chest pain. [facility] furosemide (Lasix) 40 MG tablet 08-09 00:00: 00 Yes [id number] 40mg QD Take 1 tablet (40 mg total) by mouth 1 (one) time each day. [facility] losartan (Cozaar) 50 MG tablet 08-09 00:00: 00 09-10 00:00 :00 No [id number] 50mg QD Take 1 tablet (50 mg total) by mouth 1 (one) time each day. [facility] tamsulosin (Flomax) 0.4 MG 24 hr capsule 07-27 00:00: 00 Yes .4mg QD Take 0.4 mg by mouth 1 (one) time each day. TAKE 1 CAPSULE BY MOUTH EVERY DAY FOR 30 DAYS [facility] metoprolol tartrate (Lopressor) 50 MG tablet 07-08 00:00: 00 04-24 00:00 :00 No 50mg Q.5D Take 50 mg by mouth 2 (two) times a day. [facility] montelukast (Singulair) 10 MG tablet 05-31 00:00: 00 Yes 10mg Take 10 mg by mouth 1 (one) time each day in the morning. [facility] Xarelto 20 MG tablet 05-31 00:00: 00 Yes 20mg Take 20 mg by mouth every night. [facility] NIFEdipine XL (Procardia XL) 60 MG 24 hr tablet 05-31 00:00: 00 02-05 00:00 :00 No 60mg Take 60 mg by mouth 1 (one) time each day if needed. [facility] isosorbide mononitrate 20 MG tablet 05-31 00:00: 00 02-04 00:00 :00 No 20mg Take 20 mg by mouth 1 (one) time each day in the morning. [facility] glimepiride (Amaryl) 1 MG tablet 05-26 00:00: 00 Yes 1mg Take 1 mg by mouth 1 (one) time each day in the morning. [facility] Kenalog (Triamcinol one) Kenalog (Triamcinol one) 2017-05 00:00: 00 No 40mg [facility] Cardura 10-14 02:00: 00 No [...] Notes: SEE RT DOCUMENTAT ION (Same as: Proventil) Yolis Young Robitussin Maximum Strength 10-11 22:22: 00 No 30 mg, Route: PO, Q6H, Dosing Weight 105.9, kg, Priority: NOW, Start date: 10/11/16 17:22:00 CDT, Duration: 30 day, Stop date: 11/10/16 12:00:00 CDT Yolis Young sennosides, RETIREMENT 10-11 22:00: 00 No Notes: (Same as: Ashlie) Yolis Young Magnesium Oxide 10-11 21:21: 00 No 800 mg, Route: PO, PRN, Dosing Weight 105.9, kg, PRN Abnormal Lab Result, For NON-ICU Patients Only., Start date: 10/11/16 16:21:00 CDT, Duration: 30 day, Stop date: 11/10/16 16:20:00 CDT Yolis Young Magnesium Sulfate 10-11 21:21: 00 No 1 gm, Route: IVPB, PRN, Dosing Weight 105.9, kg, PRN Abnormal Lab Result, For NON-ICU Patients Only., Start date: 10/11/16 16:21:00 CDT, Duration: 30 day, Stop date: 11/10/16 16:20:00 CDT Yolis Jacksonann sodium phosphate 10-11 21:21: 00 No 30 mmol, Route: IVPB, PRN, Dosing Weight 105.9, kg, PRN Abnormal Lab Result, For NON-ICU Patients Only., Start date: 10/11/16 16:21:00 CDT, Duration: 30 day, Stop date: 11/10/16 16:20:00 CDT Yolis Young Calcium Gluconate 10-11 21:21: 00 No 2 gm, Route: IVPB, PRN, Dosing Weight 105.9, kg, PRN Abnormal Lab Result, For NON-ICU Patients Only., Start date: 10/11/16 16:21:00 CDT, Duration: 30 day, Stop date: 11/10/16 16:20:00 CDT Yolis l Powell potassium phosphate 10-11 21:21: 00 No 30 mmol, Route: IVPB, PRN, Dosing Weight 105.9, kg, PRN Abnormal Lab Result, For NON-ICU Patients Only., Start date: 10/11/16 16:21:00 CDT, Duration: 30 day, Stop date: 11/10/16 16:20:00 CDT Memvanessa l Hector potassium phosphate-s odium phosphate 250 [...] Stop date: 11/10/16 16:20:00 CDT Morenovanessa jennifer Young Isolyte S (PH 7.4) 500 mL 500 mL 10-11 20:30: 00 No Notes: (Same as: Isolyte S PH7.4) Morenovanessa jennifer Young Docusate 10-11 14:26: 00 No Notes: [...] (Same as: Tylenol with Codeine # 3) Morenovanessa jennifer Young Sodium Chloride 0.154 MEQ/ML Injectable Solution [...] Dilaudid) conc = 0.5 mg/ml Hydromorph one [employer] Dose: ;Delay: ;Basal: Memoria jennifer Hector Naloxone 10-09 16:42: 00 No Notes: Same as Narcan Memoria jennifer Hector neostigmine (MATTYS) 10-09 16:32: 00 No Route: IV, Drug form: INJ, ONCE, Stop date: 10/09/16 11:32:00 CDT Memoria jennifer Young glycopyrrol ate (MATTYS) 10-09 16:32: 00 No Route: IV, Drug form: INJ, ONCE, Stop date: 10/09/16 11:32:00 CDT Memvanessa Young Ondansetron 10-09 16:31: 00 No Notes: (Same as: Ankita) MEDICATION WASTE Product Size: 4 mg Product Wasted: _0__ mg Memvanessa jennifer Hector Naloxone 10-09 16:31: 00 No Notes: Same as Narcan Memvanessa jennifer Young Flumazenil 10-09 16:31: 00 No Notes: (Same as: Romazicon) Memoria jennifer Hector Fentanyl 10-09 16:31: 00 No Notes: (Same as: Sublimaze) Preservati ve free. Memvanessa jennifer Young ondansetron (MATTYS) 10-09 16:03: 00 No Route: IV, Drug form: INJ, ONCE, Stop date: 10/09/16 11:03:00 CDT Memvanessa jennifer Young acetaminoph en (MATTYS) (MATTYS) 10-09 15:29: 00 No Route: IV, Drug form: INJ, Start date: 10/09/16 10:29:00 CDT, Stop date: 10/09/16 11:29:00 CDT Memvanessa jennifer Hector norepinephr ine (MATTYS) 10-09 14:28: 00 No Route: IV, Drug form: INJ, ONCE, Stop date: 10/09/16 9:28:00 CDT Memoria jennifer Young cisatracuri um (DARIUS) 10-09 14:18: 00 No Route: IV, Drug form: INJ, ONCE, Stop date: 10/09/16 9:18:00 CDT Yolis Young midazolam ([facility]) 10-09 14:13: 00 No Route: IV, Drug form: SOLN, ONCE, Stop date: 10/09/16 9:13:00 CDT Yolis Young lidocaine ([facility]) 10-09 14:13: 00 No Route: IV, Drug form: INJ, ONCE, Stop date: 10/09/16 9:13:00 CDT Yolis Young propofol ([facility]) 10-09 14:13: 00 No Route: IV, Drug form: INJ, ONCE, Stop date: 10/09/16 9:13:00 CDT Yolis Young ceFAZolin ([facility]) 10-09 14:08: 00 No Route: IV, Drug form: INJ, ONCE, Stop date: 10/09/16 9:08:00 CDT Yolis Young fentaNYL ([facility]) 10-09 14:08: 00 No Route: IV, Drug [...] Young Isolyte S (PH 7.4) 1000 mL ([facility]) 10-09 13:10: 00 No Route: IV, Total [...] 10-09 01:48: 00 No Notes: (Same as: Geraldinefran) MEDICATION WASTE Product Size: 4 mg Product [...] / Hydrocodone Bitartrate 5 MG Oral Tablet [[place] 5/325] 10-07 23:00: 00 No Notes: (Same as: [place] 325/5) Do not exceed 4gm/day of acetaminop [...] / Hydrocodone Bitartrate 5 MG Oral Tablet [[place] 5/325] 10-07 19:53: 00 No Notes: (Same as: [place] 325/5) Do not exceed 4gm/day of acetaminop hen. Yolis Jacksonann Morphine 10-07 17:31: 00 No Notes: (Same as:MORPhin e Sulfate) Yolis Jacksonann Vancomycin 10-07 15:41: 00 No 750 mg, [...] Notes: (Same as: Mag-Ox 400) Magnesium oxide 834ax=650a g elemental magnesium Dose=____m g magnesium oxide [...] s. Mix w/2.5oz water and stir. Yolis Jacksonann Hydralazine 10-07 09:00: 00 No Notes: (Same as: Apresoline ) Push over 5 minutes Yolis Jacksonann Hydralazine 10-07 07:52: 00 No Notes: (Same [...] 30 day, Stop date: 11/05/16 17:00:00 CDT Morenovanessa jennifer Young metoprolol tartrate 10-06 22:08: 00 No [...] Stop date: 10/06/16 13:16:00 CDT Yolis jennifer Powell Glucagon 10-06 15:22: 00 No 1 mg, [...] 10-06 12:15: 00 No Notes: (Same as: Ankita) MEDICATION WASTE Product Size: 4 mg Product Wasted: ___ mg oYlis Young Morphine 10-06 12:15: 00 No Notes: (Same as:MORPhin e Sulfate) Yolis jennifer Young Zofran 10-06 12:13: 00 No Notes: (Same as: Zofran) MEDICATION WASTE Product Size: 4 mg Product Wasted: ___ mg Yolis Young Morphine 10-06 12:13: 00 No Notes: (Same as:MORPhin e Sulfate) Morenovanessa jennifer Young metoprolol tartrate 01-25 02:00: 00 No Notes: (Same as: Lopressor) Yolis jennifer Young Nifedipine 20 MG Oral Capsule [...] us pneumoniae serotype 1 capsular antigen diphtheria [id number] protein conjugate vaccine / Streptococc us pneumoniae serotype 14 capsular antigen diphtheria [id number] protein conjugate vaccine / Streptococc us pneumoniae [...] day, Stop date: 02/23/16 17:40:00 CDT Yolis Young Glucagon 01-23 22:41: 00 No 1 mg, Route: IM, Drug form: PDR/INJ, PRN, Dosing Weight 115.045, kg, PRN Blood Glucose Results, Start date: 01/24/16 17:41:00 CDT, Duration: 30 day, Stop date: 02/23/16 17:40:00 CDT Yolis Jacksonann Hydralazine 01-23 22:22: 00 No Notes: (Same as: Apresoline ) Push over 5 minutes Yolis rodriguez Hector Labetalol 01-23 19:23: 00 No 10 mg, Route: IVP, Drug form: INJ, ONCE, Dosing Weight 115.045, kg, Start date: 01/24/16 14:23:00 CDT, Stop date: 01/24/16 14:23:00 CDT Yolis Jacksonann Ondansetron 01-23 19:21: 00 No 4 mg, Route: IVP, ONCE, Dosing Weight 115.045, kg, PRN Nausea & Vomiting, Start date: 01/24/16 14:21:00 CDT Yolis Young Promethazin e 01-23 19:21: 00 No 6.25 mg, Route: IVPB, ONCE, Dosing Weight 115.045, kg, PRN Nausea & Vomiting, Start date: 01/24/16 14:21:00 CDT Morenovanessa Jacksonann Naloxone 01-23 19:21: 00 No 0.4 mg, Route: IVP, Q2MIN, Dosing Weight 115.045, kg, PRN Narcotic Reversal, Start date: 01/24/16 14:21:00 CDT, Duration: 8 doses or times, Stop date: Limited # of times Yolis jennifer Young Flumazenil 01-23 19:21: 00 No [...] or times, Stop date: 01/24/16 14:21:00 CDT Yolis Young Hydromorpho ne 01-23 19:21: 00 No 0.5 mg, Route: IVP, Q5Min, Dosing Weight 115.045, kg, PRN Pain Score 7-10, Start date: 01/24/16 14:21:00 CDT, Duration: 4 doses or times, Stop date: Limited # of times Yolis Young Fentanyl 01-23 19:21: 00 No 25 microgram, [...] Stop date: 01/24/16 13:32:00 CDT Memoria l Powell heparin (ANES) 01-23 18:32: 00 No Route: IV, Drug form: INJ, ONCE, Stop date: 01/24/16 13:32:00 CDT Memoria l Hector acetaminoph en (ANES) (ANES) 01-23 18:26: 00 No Route: IV, Drug form: INJ, Start date: 01/24/16 13:26:00 CDT, Stop date: 01/24/16 14:26:00 CDT Yolis Young sodium bicarbonate (ANES) ([facility]) 01-23 18:19: 00 No Route: IV, Drug form: INJ, Start date: 01/24/16 13:19:00 CDT, Stop date: 01/24/16 14:19:00 CDT Yolis Young LR 1000 mL INJ ([facility]) 01-23 18:09: 00 No Route: IV, Total Volume: 1,000, Start date: 01/24/16 13:09:00 CDT, Stop date: 01/24/16 14:09:00 CDT Yolis Young vancomycin (MATTYS) ([facility]) 01-23 17:44: 00 No Route: IV, Drug form: INJ, Start date: 01/24/16 12:44:00 CDT, Stop date: 01/24/16 13:44:00 CDT Yolis Young ceFAZolin (MATTYS) ([facility]) 01-23 17:42: 00 No Route: IV, Drug [...] Q12H, # 60 tab, 0 Refill(s) Morenovanessa jennifer Hetcor 24 HR Nicotine 0.875 MG/HR Transdermal Patch [Nicoderm C-Q] 11-13 20:53: 00 Yes = 1 patch, TOP, Daily, X 7 day, # 7 patch, 0 Refill(s) Morenovanessa jennifer Young doxazosin 2 mg oral tablet 11-13 20:53: 00 Yes 2 mg = 1 tab, PO, BID, # 30 tab, 1 Refill(s) Morenovanessa jennifer Powell Metronidazo le 500 MG Oral Tablet 11-13 [...] Yes 500 mg = 1 tab, PO, [id number], # 11 tab, 0 Refill(s) Yolis Young [...] day, Stop date: 12/13/15 21:23:00 CDT Morenovanessa jennifer Powell Glucagon 11-13 02:24: 00 No 1 mg, [...] Notes: (Same as: Mag-Ox 400) Magnesium oxide 687po=961i g elemental magnesium Dose=____m g magnesium oxide (___mg elemental magnesium) Yolis Young Simethicone 11-10 23:00: 00 No Notes: (Same as: Mylicon) Yolis jennifer Young heparin sodium, porcine 2500 UNT/ML [...] grapefruit and grapefruit juice". Do not crush Morenovanessa Jacksonann Sodium Chloride 0.154 MEQ/ML Injectable Solution 11-10 [...] Lopressor) 12.5mg=1/4 X 50 mg tab. Yolis rodriguez Hector Heparin - one time bolus for ACS [...] date: 12/09/15 9:31:00 CDT Yolis Young sennosides, RETIREMENT 11-08 14:00: 00 No Notes: (Same as: [...] 2:43:00 CDT, Stop date: 11/09/15 2:43:00 CDT Morenovanessa jennifer Hector Nicardipine 11-08 06:48: 00 No Notes: Same as: Cardene Concentrat ion: (0.2 mg /1 ml ) Yolis rodriguez Powell esmolol 11-08 06:11: 00 No Notes: (Same as: Brevibloc) 10 mg/ml conc. Morenovanessa jennifer Powell Ativan 11-08 05:52: 00 No 1 mg, Route: IVP, Drug form: INJ, ONCE, Dosing Weight 114.2, kg, PRN Anxiety, Start date: 11/09/15 0:52:00 CDT Morenovanessa jennifer Young Morphine 11-08 05:22: 00 No Notes: [...] 30 mg, Route: SUB-Q, Drug form: INJ, [id number], Dosing Weight 114.2, kg, Start date: 11/06/15 4:00:00 CDT, Duration: 30 day, Stop date: 12/05/15 4:00:00 CDT Yolis Jacksonann heparin 11-05 09:00: 00 No Notes: porcine heparin Yolis Jacksonann Acetaminoph en 325 MG / Hydrocodone Bitartrate 5 MG Oral Tablet 11-05 08:32: 00 No Notes: (Same as: [place] 325/5) Do not exceed 4gm/day of acetaminop hen. Yolis Jacksonann Ondansetron 11-05 08:32: 00 No Notes: (Same as: Ankita) MEDICATION [...] 11-05 08:26: 00 No Notes: Same as: Jefry Concentrat ion: (0.2 mg /1 ml ) [...] 06-11 23:00: 00 No Notes: (Same as: Ankit) Administer with food Yolis Morley 06-11 20:04: 00 No Notes: (Same as: Milli) Yolsi Young Aspirin Enteric Coated 81 mg oral delayed release tablet 06-11 20:01: 00 Yes 81 mg = 1 tab, PO, Daily, # 60 tab, 1 Refill(s) Yolis Young rivaroxaban 20 MG Oral Tablet [Xarelto] 06-11 19:15: 00 Yes 20 mg, PO, QPM, # 60 tab, 1 Refill(s) Yolis Young Praluent (alirocumab ) 75 mg/ml 06-11 [...] 1 tab, PO, BID, 0 Refill(s) Yolis Jacksonann GlipiZIDE XL 5 mg oral tablet, extended release 06-10 15:08: 00 Yes 5 mg = 1 tab, PO, BID, 0 Refill(s) Yolis Young Aspirin 06-10 15:06: 00 No Notes: Take with food. Yolis Jacksonann Saline Flush 0.9% 06-10 15:00: 00 No Notes: (Same as: BD Posiflush) Yolis Jacksonann heparin 06-10 15:00: 00 No Notes: porcine heparin Yolis Jacksonann Nicotine 06-10 15:00: 00 No Notes: (Same as: Habitrol) "Remove old patch before applicatio n of new patch" WASTE: F/P - P Waste Black; E - P Waste Black Yolis Jacksonann remove patch 06-10 15:00: 00 No Notes: [...] by Radiology Staff ONLY" Yolis Young Iohexol 06-10 01:18: 00 No 85 mL, Route: IVP, Drug Form: SOLN, Dosing Weight 115, kg, ONCALL, STAT, Start date: 06/09/15 19:18:00, Duration: 1 doses or times, Dose = 2.2ml/kg, Max dose = 100ml -- "To be infused by Radiology Staff ONLY" Yolis Jacksonann clonidine 0.3 mg oral tablet 01-14 21:00: [...] Substituti on Allowed, TAB Morenovanessa jennifer Young Flomax 0.4 mg oral capsule 01-14 20:27: 11 Yes Vinny Sudarshan Popeye 0.4 mg, 1 cap, PO, Daily, 30 cap, Substituti on Allowed, CAP Yolis Young glipiZIDE 5 mg oral tablet 01-14 20:27: 07 Yes Vinny Sudrashan Popeye 5 mg, 1 tab, PO, Daily, [...] BID, 60 tab, Substituti on Allowed, TAB oYlis Young metoprolol tartrate 01-14 20:13: 00 No Vinny Loyolar Popeye 75 mg, 3 tab, Route: PO, [...] Young Plavix 01-14 14:00: 00 No Vinny Loyolar Popeye 75 mg, 1 tab, Route: PO, [...] Young adenosine 01-14 03:35: 00 No Vinny Sudarshan Popeye 95.4542 mg, Route: IVP, ONCE, Dosing [...] insulin aspart 01-14 02:51: 00 No Vinny Chambersison 10 unit, 0.1 mL, Route: SUB-Q, Drug form: SOLN, TID-Before Meals, Dosing Weight 113.636, kg, PRN Blood Glucose Results, Start date: 01/14/12 21:51:00, Duration: 30 day, Stop date: 02/13/12 21:50:00 Yolis Young heparin 01-14 02:00: 00 No Vinny Loyolar Popeye 5,000 unit, 1 mL, Route: SUB-Q, Drug form: INJ, Q12H, Dosing Weight 113.636, kg, Start date: 01/14/12 21:00:00, Duration: 30 day, Stop date: 02/13/12 9:00:00 Yolis Young Saline Flush 0.9% 01-14 02:00: 00 No Vinny Sudarshan Popeye 5 ml, Route: IVP, Drug Form: INJ, Dosing Weight 113.636, kg, Q12H, Start date: 01/14/12 21:00:00, Duration: 30 day, Stop date: 10/11/12 9:00:00 Memoria jennifer Young hydrALAZINE 01-13 23:48: 00 No Reagan [...] Daily, 30 tab, Substituti on Allowed Memoria l Hector clonidine 0.3 mg oral tablet 01-13 23:19: 46 No 0.3 mg, PO, BID, 60 tab, Substituti on Allowed Memoria jennifer Young metoprolol tartrate 01-13 22:03: 00 No Vinny Sudarshan Popeye 50 mg, 1 tab, Route: PO, Drug form: TAB, Q12H, Dosing Weight 113.636, kg, Priority: NOW, Start date: 01/14/12 17:03:00, Duration: 30 day, Stop date: 02/13/12 9:00:00 Memoria l Powell clonidine 0.3 mg oral tablet 01-13 22:00: 00 No Vinny Sudarshan Popeye 0.3 mg, 1 tab, Route: PO, Drug form: TAB, BID, Dosing Weight 113.636, kg, Start date: 01/14/12 17:00:00, Duration: 30 day, Stop date: 02/13/12 9:00:00 Memvanessa Young Saline Flush 0.9% 01-13 21:52: 00 No Vinny Chambersison 5 ml, Route: IVP, Drug Form: INJ, Dosing Weight 113.636, kg, PRN, PRN Line Flush, Start date: 01/14/12 16:52:00, Duration: 30 day, Stop date: 02/13/12 16:51:00 Memvanessa Jacksonann nitroglycer in SL Tab 01-13 21:52: 00 No Vinny Chambersison 0.4 mg, 1 tab, Route: SL, Drug form: TAB, Q5Min, Dosing Weight 113.636, kg, PRN Chest Pain, Start date: 01/14/12 16:52:00, Duration: 3 doses or times, Stop date: Limited # of times Memvanessa Young nitroglycer in 2% ointment 01-13 21:01: [...] date: 01/14/12 14:24:00, Stop date: 01/14/12 14:24:00 Memvanessa rodriguez Hector Vasotec 01-13 18:54: 00 No Abbie Sidhu 1.25 mg, 1 mL, Route: IV, Drug form: INJ, ONCE, Dosing Weight 113.636, kg, Start date: 01/14/12 13:54:00, Stop date: 01/14/12 13:54:00 Memvanessa rodriguez Hector enalaprilat 01-13 18:52: 00 No Blanca Perkins 1.25 mg, 1 mL, Route: IV, [...] Completed pneumococcal 13-valent vaccine 2016-01-25 14:00:00 Completed [facility] influenza virus vaccine, inactivated 2016-01-25 13:58:00 Completed [facility] Influenza, injectable, quadrivalent, preservative free (afluria, fluarix, [...] 12 & Over Vaccination (PURPLE-DILUTE) Unknown Completed [facility] COVID-19 Pfizer 12 & Over Vaccination (PUR[place]-DILUTE) Unknown Completed [facility] COVID-19 Pfizer 12 & Over Vaccination (PUR[place]-DILUTE) Unknown Completed [facility] COVID-19 Pfizer 12 & Over Vaccination (PUR[place]-DILUTE) Unknown Completed [facility] Influenza, injectable, quadrivalent, preservative free (afluria, fluarix, flulaval, fluzone) Unknown Completed [facility] Pneumococcal Conjugate PCV 13 Unknown Completed [facility] COVID-19 Pfizer 12 & Over Vaccination ([place]IL[place]) Unknown Completed [facility] Influenza, injectable, quadrivalent, preservative free (afluria, fluarix, flulaval, fluzone) Unknown Completed [facility] Pneumococcal Conjugate PCV 13 Unknown Completed [facility] COVID-19 Pfizer 12 & Over Vaccination ([place]IL[place]) Unknown Completed [facility] Influenza, injectable, quadrivalent, preservative free (afluria, fluarix, flulaval, fluzone) Unknown Completed [facility] Pneumococcal Conjugate PCV 13 Unknown Completed [facility] COVID-19 Pfizer 12 & Over Vaccination ([place]IL[place]) Unknown Completed [facility] Influenza, injectable, quadrivalent, preservative free (afluria, fluarix, flulaval, fluzone) Unknown Completed [facility] Pneumococcal Conjugate PCV 13 Unknown Completed [facility] COVID-19 Pfizer 12 & Over Vaccination ([place]IL[place]) Unknown Completed [facility] Influenza, injectable, quadrivalent, preservative free (afluria, fluarix, flulaval, fluzone) Unknown Completed [facility] Pneumococcal Conjugate PCV 13 Unknown Completed [facility] Vital Signs Vital Name Observation Time Observation Value Comments S angela Systolic blood pressure 2024-04-27 19:00:00 140 mm[Hg] [facility] Diastolic blood pressure 2024-04-27 19:00:00 63 mm[Hg] [facility] Heart rate 2024-04-27 19:00:00 65 /min [facility] Respiratory rate 2024-04-27 19:00:00 20 /min [facility] Oxygen saturation in Arterial blood by Pulse oximetry 2024-04-27 19:00:00 96 /min [facility] Body temperature 2024-04-27 16:35:00 36.39 [facility] Body weight 2024-04-27 04:46:00 106.6 kg [facility] BMI 2024-04-27 04:46:00 33.72 kg/m2 [facility] Body height 2024-04-04 09:15:00 177.8 cm [facility] Heart rate 2024-05-20 18:58:00 57 /[facility] 2024-05-20 18:58:00 22 /min [facility] Oxygen saturation in Arterial blood by Pulse oximetry 2024-05-20 18:58:00 100 /min [facility] Body temperature 2024-05-20 16:14:49 36.56 [facility] Systolic blood pressure 2024-05-20 16:13:13 127 mm[Hg] [facility] Diastolic blood pressure 2024-05-20 16:13:13 73 mm[Hg] [facility] Body height 2024-05-11 20:05:00 177.8 cm Elijah ellal Powell [facility] Body weight 2024-05-11 20:05:00 99.791 kg Elijah ellal Hector Epic BMI 2024-05-11 20:05:00 31.57 kg/m2 Elijah rial Powell [facility] Heart rate 2024-05-20 18:58:00 57 /min Memor ial Powell Epic Respiratory rate 2024-05-20 18:58:00 22 /min [facility] Oxygen saturation in Arterial blood by Pulse oximetry 2024-05-20 18:58:00 100 /min [facility] Body temperature 2024-05-20 16:14:49 36.56 Carmen [facility] Systolic blood pressure 2024-05-20 16:13:13 127 mm[Hg] [facility] Diastolic blood pressure 2024-05-20 16:13:13 73 mm[Hg] [facility] Body height 2024-05-11 20:05:00 177.8 cm Elijah sebastian Jacksonann [facility] Body weight 2024-05-11 20:05:00 99.791 kg Elijah sebastian Jacksonann Epic BMI 2024-05-11 20:05:00 31.57 kg/m2 Elijah rial Hector Epic Systolic blood pressure 2024-04-27 19:00:00 140 mm[Hg] [facility] Diastolic blood pressure 2024-04-27 19:00:00 63 mm[Hg] [facility] Heart rate 2024-04-27 19:00:00 65 /min Memor ial Hector Epic Respiratory rate 2024-04-27 19:00:00 20 /min [facility] Epic Oxygen saturation in Arterial blood by Pulse oximetry 2024-04-27 19:00:00 96 /min [facility] Body temperature 2024-04-27 16:35:00 36.39 Carmen [facility] Body weight 2024-04-27 04:46:00 106.6 kg Elijah rial Hector Epic BMI 2024-04-27 04:46:00 33.72 kg/m2 Elijah rial Powell [facility] Body height 2024-04-04 09:15:00 177.8 cm [facility] Systolic blood pressure 2024-04-27 19:00:00 140 mm[Hg] [facility] Diastolic blood pressure 2024-04-27 19:00:00 63 mm[Hg] [facility] Heart rate 2024-04-27 19:00:00 65 /min [facility] Respiratory rate 2024-04-27 19:00:00 20 /min [facility] Oxygen saturation in Arterial blood by Pulse oximetry 2024-04-27 19:00:00 96 /min [facility] Body temperature 2024-04-27 16:35:00 36.39 Carmen [facility] Body weight 2024-04-27 04:46:00 106.6 kg [facility] BMI 2024-04-27 04:46:00 33.72 kg/m2 Elijahjose cortes [facility] Body height 2024-04-04 09:15:00 177.8 cm [facility] Systolic blood pressure 2024-02-18 14:49:00 168 mm[Hg] [facility] Diastolic blood pressure 2024-02-18 14:49:00 85 mm[Hg] [facility] Heart rate 2024-02-18 14:49:00 54 /min [facility] height 2024-02-18 14:38:00 [facility]8 [facility] weight 2024-02-18 14:38:00 105[facility]688 [facility] BMI 2024-02-18 14:38:00 33.43 [facility]m2 [facility] height 2024-02-16 13:45:00 70 [in_i] Commo n [facility] weight 2024-02-16 13:45:00 243.6 [lb_av] Co mmon [facility] bmi 2024-02-16 13:45:00 34.95 kg/m2 Comm on [facility] oximetry 2024-02-16 13:45:00 96 % Commo n [facility] respiratory rate 2024-02-16 13:45:00 18 /min [facility] blood pressure systolic 2024-02-16 13:45:00 175 mm[Hg] [facility] blood pressure diastolic 2024-02-16 13:45:00 82 mm[Hg] [facility] Systolic blood pressure 2024-02-10 16:07:00 149 mm[Hg] [facility] Diastolic blood pressure 2024-02-10 16:07:00 73 mm[Hg] [facility] Heart rate 2024-02-10 16:07:00 60 /min [facility] weight 2024-02-10 16:07:00 107[facility]956 [facility] BMI 2024-02-10 16:07:00 34.15 kg[facility]m2 [facility] Systolic blood pressure 2024-02-05 15:05:00 158 mm[Hg] [facility] Diastolic blood pressure 2024-02-05 15:05:00 85 mm[Hg] [facility] Heart rate 2024-02-05 15:05:00 85 /min [facility] Body height 2024-02-05 15:05:00 177.8 cm [facility] Body weight 2024-02-05 15:05:00 108[facility]138 [facility] BMI 2024-02-05 15:05:00 34.21 kg[facility]m2 [facility] Oxygen saturation in Arterial blood by Pulse oximetry 2024-02-05 15:05:00 100 /min [facility] Systolic blood pressure 2023-12-12 16:51:00 116 mm[Hg] [facility] Diastolic blood pressure 2023-12-12 16:51:00 72 mm[Hg] [facility] Heart rate 2023-12-12 16:51:00 76 /min [facility] Body height 2023-12-12 16:51:00 177.8 [facility] Body weight 2023-12-12 16:51:00 110[facility]224 [facility] BMI 2023-12-12 16:51:00 34.87 kg/m2 [facility] [...] BMI 2023-09-04 19:32:00 34.26 [facility]m2 [facility] height 2023-08-08 09:15:00 70 [in_i] Commo n [facility] weight 2023-08-08 09:15:00 240.2 [lb_av] Co mmon [facility] temperature 2023-08-08 09:15:00 97.5 [degF] Com mon [facility] bmi 2023-08-08 09:15:00 34.46 kg/m2 Comm on [facility] oximetry 2023-08-08 09:15:00 97 % Commo n [facility] respiratory rate 2023-08-08 09:15:00 18 /min [facility] blood pressure systolic 2023-08-08 09:15:00 125 mm[Hg] Common [facility] blood pressure diastolic 2023-08-08 09:15:00 76 mm[Hg] [facility] Systolic blood pressure 2023-07-31 16:53:00 149 mm[Hg] [facility] Diastolic blood pressure 2023-07-31 16:53:00 91 mm[Hg] [facility] Heart rate 2023-07-31 16:53:00 93 /min [facility] Oxygen saturation in Arterial blood by [...] Systolic blood pressure 2023-01-13 21:18:00 137 mm[Hg] [facility] Diastolic blood pressure 2023-01-13 21:18:00 84 mm[Hg] [facility] Heart rate 2023-01-13 21:18:00 80 /min [facility] Respiratory rate 2023-01-13 21:18:00 18 /min [facility] Body height 2023-01-13 21:18:00 180.3 cm [facility] Body weight 2023-01-13 21:18:00 106.051 [facility] BMI 2023-01-13 21:18:00 32.61 kg/m2 [facility] Oxygen saturation in Arterial blood by Pulse oximetry 2023-01-13 21:18:00 98 /min [facility] height 2022-12-12 15:15:00 70 [in_i] Commo n [facility] weight 2022-12-12 15:15:00 230 [lb_av] Comm on [facility] temperature 2022-12-12 15:15:00 97.9 [degF] Com mon [facility] bmi 2022-12-12 15:15:00 33 kg/m2 Commo n [facility] oximetry 2022-12-12 15:15:00 98 % Commo n [facility] heart rate 2022-12-12 15:15:00 73 /min Commo n [facility] respiratory rate 2022-12-12 15:15:00 17 /min [facility] blood pressure systolic 2022-12-12 15:15:00 115 mm[Hg] [facility] blood pressure diastolic 2022-12-12 15:15:00 66 mm[Hg] [facility] temperature 2022-09-11 14:45:00 97.9 [degF] Com mon [facility] bmi 2022-09-11 14:45:00 33.57 kg/m2 Comm on [facility] oximetry 2022-09-11 14:45:00 99 % Commo n [facility] heart rate 2022-09-11 14:45:00 68 /min Commo n [facility] respiratory rate 2022-09-11 14:45:00 18 /min [facility] blood pressure systolic 2022-09-11 14:45:00 146 mm[Hg] [facility] blood pressure diastolic 2022-09-11 14:45:00 68 mm[Hg] [facility] height 2022-09-11 14:45:00 70 [in_i] Commo n [facility] weight 2022-09-11 14:45:00 234 [lb_av] Comm on [facility] Systolic blood pressure 2021-11-19 16:10:00 131 mm[Hg] [facility] Diastolic blood pressure 2021-11-19 16:10:00 85 mm[Hg] [facility] Heart rate 2021-11-19 16:10:00 76 /min [facility] Respiratory rate 2021-11-19 16:10:00 18 /min [facility] Body weight 2021-11-19 16:10:00 109.045 kg [facility] BMI 2021-11-19 16:10:00 [facility]53 [facility] Arterial blood by Pulse oximetry 2021-11-19 16:10:00 99 /min [facility] height 2021-07-27 13:00:00 70 [in_i] Commo n [facility] weight 2021-07-27 13:00:00 247 [lb_av] Comm on [facility] temperature 2021-07-27 13:00:00 98.1 [degF] Com [facility] bmi 2021-07-27 13:00:00 35.44 kg/m2 Comm on [facility] oximetry 2021-07-27 13:00:00 98 % Commo n [facility] heart rate 2021-07-27 13:00:00 72 /min Commo n [facility] respiratory rate 2021-07-27 13:00:00 16 /min [facility] blood pressure systolic 2021-07-27 13:00:00 166 mm[Hg] [facility] blood pressure diastolic 2021-07-27 13:00:00 68 mm[Hg] [facility] Systolic (mm Hg) 2016-10-13 19:00:00 [facility] Diastolic (mm Hg) 2016-10-13 19:00:00 [facility] Systolic (mm Hg) 2016-10-13 18:00:00 [facility] Diastolic (mm Hg) 2016-10-13 18:00:00 [facility] Systolic (mm Hg) 2016-10-13 17:09:00 [facility] Diastolic (mm Hg) 2016-10-13 17:09:00 [facility] Respitory Rate 2016-10-13 16:00:00 [facility] Temperature Oral (F) 2016-10-13 16:00:00 97.9 F [facility] Respitory Rate 2016-10-13 13:00:00 [facility] Temperature Oral (F) 2016-10-13 12:00:00 99.3 F [facility] Temperature Oral (F) 2016-10-13 09:00:00 97.9 F [facility] Respitory Rate 2016-10-12 22:00:00 [facility] Height 2016-10-06 13:54:00 177.8 cm [facility] Weight 2016-10-06 13:54:00 [facility] BMI Calculated 2016-10-06 13:54:00 [facility] Systolic (mm Hg) 2016-01-25 22:00:00 [facility] Diastolic (mm Hg) 2016-01-25 22:00:00 [facility] Respitory Rate 2016-01-25 22:00:00 [facility] Systolic (mm Hg) 2016-01-25 21:00:00 [facility] Diastolic (mm Hg) 2016-01-25 21:00:00 [facility] Respitory Rate 2016-01-25 21:00:00 [facility] Systolic (mm Hg) 2016-01-25 20:00:00 [facility] Diastolic (mm Hg) 2016-01-25 20:00:00 [facility] Respitory Rate 2016-01-25 20:00:00 [facility] Heart Rate 2016-01-24 11:30:00 [facility] Temperature Oral (F) 2016-01-17 18:11:00 98.1 F [facility] Heart Rate 2016-01-17 18:11:00 [facility] BMI Calculated 2016-01-17 17:29:00 [facility] Weight 2016-01-17 17:29:00 [facility] Height 2016-01-17 17:29:00 180.34 cm [facility] Respitory Rate 2015-11-14 22:30:00 [facility] Systolic (mm Hg) 2015-11-14 22:30:00 [facility] Diastolic (mm Hg) 2015-11-14 22:30:00 [facility] Systolic (mm Hg) 2015-11-14 22:00:00 [facility] Diastolic (mm Hg) 2015-11-14 22:00:00 [facility] Respitory Rate 2015-11-14 22:00:00 [facility] Respitory Rate 2015-11-14 21:30:00 [facility] Systolic (mm Hg) 2015-11-14 21:30:00 [facility] Diastolic (mm Hg) 2015-11-14 21:30:00 [facility] Temperature Oral (F) 2015-11-14 21:00:00 97.3 F [facility] Temperature Oral (F) 2015-11-14 13:00:00 97.6 F [facility] Temperature Oral (F) 2015-11-13 17:00:00 96.9 F [facility] Height 2015-11-06 07:42:00 177.8 cm [facility] Weight 2015-11-06 07:42:00 [facility] BMI Calculated 2015-11-06 07:42:00 [facility] BMI Calculated 2015-11-06 07:30:00 [facility] Weight 2015-11-06 07:30:00 [facility] Height 2015-11-06 07:30:00 177.8 cm [facility] Systolic (mm Hg) 2015-06-11 21:42:00 [facility] Diastolic (mm Hg) 2015-06-11 21:42:00 [facility] Respitory Rate 2015-06-11 21:42:00 [facility] Temperature Oral (F) 2015-06-11 21:42:00 97.2 F [facility] Heart Rate 2015-06-11 21:42:00 [facility] Heart Rate 2015-06-11 18:18:00 [facility] Respitory Rate 2015-06-11 18:18:00 [facility] Systolic (mm Hg) 2015-06-11 18:18:00 [facility] Diastolic (mm Hg) 2015-06-11 18:18:00 [facility] Temperature Oral (F) 2015-06-11 18:18:00 97.9 F [facility] Respitory Rate 2015-06-11 13:22:00 [facility] Systolic (mm Hg) 2015-06-11 13:22:00 [facility] Diastolic (mm Hg) 2015-06-11 13:22:00 [facility] Heart Rate 2015-06-11 13:22:00 [facility] Temperature Oral (F) 2015-06-11 13:22:00 97.2 F [facility] BMI Calculated 2015-06-10 06:42:00 [facility] Height 2015-06-10 06:42:00 177.8 cm [facility] Weight 2015-06-10 06:42:00 [facility] Weight 2015-06-09 23:44:00 [facility] BMI Calculated 2015-06-09 23:44:00 [facility] Height 2015-06-09 23:44:00 177.8 cm [facility] Diastolic (mm Hg) 2012-01-15 23:15:00 [facility] Heart Rate 2012-01-15 23:15:00 [facility] Systolic (mm Hg) 2012-01-15 23:15:00 [facility] Respitory Rate 2012-01-15 23:15:00 [facility] Diastolic (mm Hg) 2012-01-15 22:47:00 [facility] Systolic (mm Hg) 2012-01-15 22:47:00 [facility] Temperature Oral (F) 2012-01-15 22:47:00 98.6 F [facility] Respitory Rate 2012-01-15 22:47:00 [facility] Heart Rate 2012-01-15 22:47:00 [facility] Systolic (mm Hg) 2012-01-15 20:36:00 [facility] Temperature Oral (F) 2012-01-15 20:36:00 97.2 F [facility] Heart Rate 2012-01-15 20:36:00 [facility] Diastolic (mm Hg) 2012-01-15 20:36:00 [facility] Respitory Rate 2012-01-15 20:36:00 [facility] Temperature Oral (F) 2012-01-15 17:15:00 97.8 F [facility] Weight 2012-01-14 15:59:00 [facility] Height 2012-01-14 15:59:00 177.80 cm [facility] Procedures Procedure Date / Time Performed Performing Clinician Source Magnesium Level 2024-05-21 00:00:00 [facility] Epic Phosphorus Level 2024-05-21 [facility] w/Diff and Platelet 2024-05-21 00:00:00 [facility] Comprehensive Metabolic Panel 2024-05-21 00:00:00 [facility] POC GLUCOSE UNSOLICITED RESULTS 2024-05-20 16:14:00 Morgan Townsend [facility] Epic POC GLUCOSE UNSOLICITED RESULTS 2024-05-20 12:43:00 [facility] POC GLUCOSE UNSOLICITED RESULTS 2024-05-20 08:36:00 Morgan Townsend [facility] COMPREHENSIVE METABOLIC PANEL 2024-05-20 04:01:00 Claude Simms [facility] Epic MAGNESIUM LEVEL 2024-05-20 04:01:00 Claude Simms [facility] Epic PHOSPHORUS LEVEL 2024-05-20 04:01:00 [facility] COMPLETE BLOOD COUNT W/DIFF AND PLATELET 2024-05-20 04:01:[address] [facility]LOOD [facility] 2024-05-20 04:01:[address] [facility] AUTOMATED DIFFERENTIAL 2024-05-20 04:01:[address] [facility] [facility] POC GLUCOSE UNSOLICITED RESULTS 2024-05-19 16:17:[address] [facility] POC GLUCOSE UNSOLICITED RESULTS 2024-05-19 11:32:[address] [facility] POC GLUCOSE UNSOLICITED RESULTS 2024-05-19 08:49:00 Kristian Morgan Erik [facility] Epic COMPREHENSIVE METABOLIC PANEL 2024-05-19 03:37:[address] [facility] MAGNESIUM LEVEL 2024-05-19 03:37:00 Claude Simms [facility] Epic PHOSPHORUS LEVEL 2024-05-19 03:37:00 Claude Simms [facility] Epic COMPLETE BLOOD COUNT W/DIFF AND PLATELET 2024-05-19 03:37:00 Claude Simms [facility] Epic COMPLETE BLOOD COUNT 2024-05-19 03:37:[address] [facility] AUTOMATED DIFFERENTIAL 2024-05-19 03:37:00 Philip Simms [facility] Epic POC GLUCOSE UNSOLICITED RESULTS 2024-05-18 16:36:00 Claude Simms [facility] Epic POC GLUCOSE UNSOLICITED RESULTS 2024-05-18 11:47:00 Claude Simms [facility] Epic RESPIRATORY CULTURE W/GRAM STAIN 2024-05-18 09:54:00 MautreJason gan [facility] AFB CULTURE W/SMEAR W/PCR IF INDICATED 2024-05-18 09:54:00 HeJason zarate [facility] FUNGAL CULTURE W/SMEAR 2024-05-18 09:54:00 Jason Rabago [facility] CELL COUNT W/DIFF BODY FLUID BAL MANUAL 2024-05-18 09:54:00 HebenstreitJason [facility] Epic NON-GYNECOLOGIC CYTOLOGY 2024-05-18 09:50:[address] [facility] BRONCHOSCOPY 2024-05-18 09:38:00 HebenstreitJason [facility] COMPREHENSIVE METABOLIC PANEL 2024-05-18 03:38:00 SimmsClaude [facility] Epic MAGNESIUM LEVEL 2024-05-18 03:38:00 SimmsClaude [facility] Epic PHOSPHORUS LEVEL 2024-05-18 03:38:00 Claude Simms [facility] Epic COMPLETE BLOOD COUNT W/DIFF AND PLATELET 2024-05-18 03:38:[address] [facility] COMPLETE BLOOD COUNT 2024-05-18 03:38:[address] [facility] Epic AUTOMATED DIFFERENTIAL 2024-05-18 03:38:[address] [facility] POC GLUCOSE UNSOLICITED RESULTS 2024-05-17 16:36:[address] [facility] POC GLUCOSE UNSOLICITED RESULTS 2024-05-17 12:56:[address] [facility] POC GLUCOSE UNSOLICITED RESULTS 2024-05-17 07:43:00 Claude Simms [facility] COMPREHENSIVE METABOLIC PANEL 2024-05-17 01:37:00 SimmsClaude avila [facility] Epic MAGNESIUM LEVEL 2024-05-17 01:37:00 [facility] 2024-05-17 01:37:00 [facility] COMPLETE BLOOD COUNT W/DIFF AND PLATELET 2024-05-17 01:37:[address] [facility] COMPLETE BLOOD COUNT 2024-05-17 01:37:[address] [facility] AUTOMATED DIFFERENTIAL 2024-05-17 01:37:[address] [facility] Home Oxygen Evaluation 2024-05-17 00:00:00 [facility] Epic POC GLUCOSE UNSOLICITED RESULTS 2024-05-16 16:21:[address] [facility] POC GLUCOSE UNSOLICITED RESULTS 2024-05-16 12:38:00 Simms, Laurelmerrill [facility] Epic POC GLUCOSE UNSOLICITED RESULTS 2024-05-16 07:34:00 Simms, Laurelmerrill [facility] COMPREHENSIVE METABOLIC PANEL 2024-05-16 01:54:00 Simms, Laurelmerrill [facility] MAGNESIUM LEVEL 2024-05-16 01:54:00 Claude Simms [facility] Epic PHOSPHORUS LEVEL 2024-05-16 01:54:00 Claude [facility]ms [facility] Epic COMPLETE BLOOD COUNT W/DIFF AND PLATELET 2024-05-16 01:54:00 Simms, Claude [facility] COMPLETE BLOOD COUNT 2024-05-16 01:54:00 Yocasta Simms on [facility] Epic AUTOMATED DIFFERENTIAL 2024-05-16 01:54:[address] [facility] Complete Blood Count w/Diff and Platelet 2024-05-16 00:00:00 [facility] Epic Phosphorus Level 2024-05-16 00:00:00 Elijah [facility] Epic POC GLUCOSE UNSOLICITED RESULTS 2024-05-15 16:09:00 Simms, Laurelmerrill [facility] Epic POC GLUCOSE UNSOLICITED RESULTS 2024-05-15 11:12:00 Simms, Laurelmerrill [facility] Epic POC GLUCOSE UNSOLICITED RESULTS 2024-05-15 07:26:00 Simms, Laurelmerrill [facility] POC GLUCOSE UNSOLICITED RESULTS 2024-05-15 06:37:[address] [facility] Epic COMPREHENSIVE METABOLIC PANEL 2024-05-15 02:02:00 Simms, Laurelmerrill [facility] Epic MAGNESIUM LEVEL 2024-05-15 02:02:00 Claude Simms [facility] Epic PHOSPHORUS LEVEL 2024-05-15 02:02:00 Claude Simms [facility] Epic COMPLETE BLOOD COUNT W/DIFF AND PLATELET 2024-05-15 02:02:00 Simms, Claude [facility] Epic COMPLETE BLOOD COUNT 2024-05-15 02:02:00 Yocasta Simms on [facility] Epic AUTOMATED DIFFERENTIAL 2024-05-15 02:02:00 Philip Simms [facility] POC GLUCOSE UNSOLICITED RESULTS 2024-05-14 16:26:00 SmimsClaude avila [facility] POC GLUCOSE UNSOLICITED RESULTS 2024-05-14 11:28:00 Mendez Laurelmerrill [facility] POC GLUCOSE UNSOLICITED RESULTS 2024-05-14 08:48:00 Claude Simms [facility] COMPREHENSIVE METABOLIC PANEL 2024-05-14 04:00:00 Claude Simms [facility] MAGNESIUM LEVEL 2024-05-14 04:00:[address] [facility] PHOSPHORUS LEVEL 2024-05-14 04:00:00 [facility] COMPLETE BLOOD COUNT W/DIFF AND PLATELET 2024-05-14 04:00:00 Claude Simms [facility] COMPLETE BLOOD COUNT 2024-05-14 04:00:00 Yocasta Simms on [facility] AUTOMATED DIFFERENTIAL 2024-05-14 04:00:00 Philip Simms [facility] POC GLUCOSE UNSOLICITED RESULTS 2024-05-13 16:34:00 Claude Simms [facility] US LOWER EXTREMITY ARTERIAL DOPPLER BILATERAL 2024-05-13 14:59:00 Octavio Horn [facility] XR CHEST 1 VIEW 2024-05-13 11:57:41 Marquita Pringle [facility] IR THORACENTESIS ASPIRATION OF PLEURAL SPACE W GUIDED IMAGING 2024-05-13 11:48:00 Claude Simms [facility] RESPIRATORY CULTURE W/GRAM STAIN 2024-05-13 11:29:00 Mendez Lacarnemerrill [facility] POC GLUCOSE UNSOLICITED RESULTS 2024-05-13 10:59:00 Claude Simms [facility] POC GLUCOSE UNSOLICITED RESULTS 2024-05-13 08:57:00 Mendez Lacarnemerrill [facility] COMPLETE BLOOD COUNT W/DIFF AND PLATELET 2024-05-13 08:51:00 Mendez [facility] COMPLETE BLOOD COUNT 2024-05-13 08:51:00 Yocasta Simms on [facility] AUTOMATED DIFFERENTIAL 2024-05-13 08:51:00 Simms, Ma sarah [facility] COMPREHENSIVE METABOLIC PANEL 2024-05-13 07:47:00 Claude Simms [facility] LACTATE DEHYDROGENASE 2024-05-13 07:47:00 Laurel Simms [facility] MAGNESIUM LEVEL 2024-05-13 07:47:00 [facility] PHOSPH[facility] 2024-05-13 07:47:00 [facility] RENAL COMPLETE 2024-05-13 01:30:00 Latonia jones [facility] CHLORIDE LEVEL URINE 2024-05-12 20:47:00 Carissa Vazquez [facility] PROTEIN AND CREATININE RANDOM URINE WITH RATIO 2024-05-12 20:47:00 Latonai Vazquez [facility] OSMOLALITY URINE 2024-05-12 20:47:00 Latonia Nguyen ndemily [facility] SODIUM LEVEL URINE 2024-05-12 20:47:00 Latonia Vazquez [facility] POC GLUCOSE UNSOLICITED RESULTS 2024-05-12 20:13:00 Claude Simms [facility] POC GLUCOSE UNSOLICITED RESULTS 2024-05-12 17:15:00 Claude Simms [facility] XR CHEST 1 VIEW 2024-05-12 14:19:00 Marquita Pringle [facility] IR THORACENTESIS ASPIRATION OF PLEURAL SPACE W GUIDED IMAGING 2024-05-12 14:17:12 Claude Simms [facility] PH BODY FLUID 2024-05-12 14:17:00 Claude Simms [facility] ALBUMIN LEVEL BODY FLUID 2024-05-12 14:17:00 Claude Simms [facility] GLUCOSE LEVEL BODY FLUID 2024-05-12 14:17:00 Claude Simms [facility] LACTATE DEHYDROGENASE BODY FLUID 2024-05-12 14:17:00 Claude Simms [facility] PROTEIN BODY FLUID 2024-05-12 14:17:00 Claude Simms [facility] TRIGLYCERIDE BODY FLUID 2024-05-12 14:17:00 Mendez Christina man [facility] CELL COUNT W/ DIFF BODY FLUID 2024-05-12 14:17:00 Mendez Claude [facility] BODY FLUID CULTURE W/GRAM STAIN 2024-05-12 14:17:00 Simms, Claude [facility] LIPASE BODY FLUID 2024-05-12 14:17:00 Mendez Claude [facility] REFLEX BF MANUAL DIFF - DO NOT ORDER 2024-05-12 14:17:00 Simms, Claude [facility] COMPLETE BLOOD COUNT W/DIFF AND PLATELET 2024-05-12 03:35:00 Shaniqua Bridges [facility] COMPLETE BLOOD COUNT 2024-05-12 03:35:00 Cyrus [facility] AUTOMATED DIFFERENTIAL 2024-05-12 03:35:00 Shaniqua Bridges [facility] BASIC METABOLIC PANEL 2024-05-12 03:34:00 Shaniqua Bridges [facility] NON-GYNECOLOGIC CYTOLOGY 2024-05-12 00:00:00 Mendez Claude [facility] AFB Culture w/Smear w/PCR if Indicated 2024-05-12 00:00:00 [facility] PROCALCITONIN LEVEL 2024-05-11 23:52:00 Zaki Pollard [facility] BLOOD GAS, ARTERIAL 2024-05-11 23:04:[address] [facility] [address] CHEST WO IV CONTRAST 2024-05-11 22:30:00 Zaki Pollard [facility] D-DIMER, QUANTITATIVE 2024-05-11 22:09:00 Zaki Pollard [facility] INFLUENZA A/B ANTIGENS 2024-05-11 20:50:00 Zaki Pollard [facility] CORONAVIRUS (COVID-19) DAISY ICU/ISOLATION 2024-05-11 20:50:[address] [facility] COMPREHENSIVE METABOLIC PANEL 2024-05-11 20:48:00 Zaki Pollard [facility] B-TYPE NATRIURETIC PEPTIDE 2024-05-11 20:48:00 Scott Pollard [facility] COMPLETE BLOOD COUNT W/DIFF AND PLATELET 2024-05-11 20:48:00 Zaki Pollard [facility] TROPONIN I HIGH SENSITIVITY (SINGLE ORDER) 2024-05-11 20:48:00 Zaki Pollard [facility] COMPLETE BLOOD COUNT 2024-05-11 20:48:00 Zaki Pollard [facility] AUTOMATED DIFFERENTIAL 2024-05-11 20:48:00 Zaki Pollard [facility] XR CHEST 1 VIEW 2024-05-11 20:38:12 Zaki Pollard [facility] DC CRITICAL CARE ILL/INJURED PATIENT INIT 30-74 MIN 2024-05-11 19:48:00 Zaki Pollard [facility] Arterial Blood Gas 2024-05-11 00:00:00 [facility] 2024-05-06 00:00:00 [facility] Basic Metabolic Panel 2024-04-30 00:00:00 [facility] Phosphorus Level AM 2024-04-30 00:00:00 [facility] POC GLUCOSE UNSOLICITED RESULTS 2024-04-27 16:33:00 Gregorio Gaspar [facility] POC GLUCOSE UNSOLICITED RESULTS 2024-04-27 11:00:00 Gregorio Gaspar [facility] Epic POC GLUCOSE UNSOLICITED RESULTS 2024-04-27 07:50:00 Gregorio Gaspar [facility] PHOSPHORUS LEVEL 2024-04-27 01:51:00 Estevan Boucher [facility] COMPLETE BLOOD COUNT W/DIFF AND PLATELET 2024-04-27 01:51:00 Estevan Boucher [facility] COMPLETE BLOOD COUNT 2024-04-27 01:51:00 Ana Maria Boucher [facility] AUTOMATED DIFFERENTIAL 2024-04-27 01:51:00 Naa Boucher [facility] BASIC METABOLIC PANEL 2024-04-27 01:51:00 Scott Holm [facility] Epic POC GLUCOSE UNSOLICITED RESULTS 2024-04-26 20:24:00 Chelo Melo [facility] Epic POC GLUCOSE UNSOLICITED RESULTS 2024-04-26 16:41:00 Chelo Melo [facility] POC GLUCOSE UNSOLICITED RESULTS 2024-04-26 11:34:[address] [facility] POC GLUCOSE UNSOLICITED RESULTS 2024-04-26 07:59:[address] [facility] PHOSPHORUS LEVEL 2024-04-26 01:14:[address] Kal[address] R [address] [facility] COMPLETE BLOOD COUNT W/DIFF AND PLATELET 2024-04-26 01:14:[address] COMPLETE BLOOD COUNT 2024-04-26 01:14:[address] [facility] AUTOMATED DIFFERENTIAL 2024-04-26 01:14:00 Kalavar Na veen Isac [facility] BASIC METABOLIC PANEL 2024-04-26 01:14:[address] [facility] POC GLUCOSE UNSOLICITED RESULTS 2024-04-25 20:51:[address] [facility] POC GLUCOSE UNSOLICITED RESULTS 2024-04-25 17:15:[address] [facility] POC GLUCOSE UNSOLICITED RESULTS 2024-04-25 11:03:[address] [facility] POC GLUCOSE UNSOLICITED RESULTS 2024-04-25 07:24:[address] PHOSPHORUS LEVEL 2024-04-25 00:58:[address] R [address] [facility] COMPLETE BLOOD COUNT W/DIFF AND PLATELET 2024-04-25 00:58:[address] [facility] COMPLETE BLOOD COUNT 2024-04-25 00:58:[address] Maria en [facility] [facility] Epic AUTOMATED DIFFERENTIAL 2024-04-25 00:58:00 Kalavar Na veen [facility] BASIC METABOLIC PANEL 2024-04-25 00:58:[address] [facility] POC GLUCOSE UNSOLICITED RESULTS 2024-04-24 19:33:[address] POC GLUCOSE UNSOLICITED RESULTS 2024-04-24 16:22:[address] [facility] Epic FOLATE LEVEL 2024-04-24 13:11:00 Kali Mcdonald Lawn [facility] BASIC METABOLIC PANEL 2024-04-24 13:11:00 Ramiro Mcdonaldwster [facility] POC GLUCOSE UNSOLICITED RESULTS 2024-04-24 11:19:00 Caleb Dominguez [facility] VITAMIN B12 LEVEL 2024-04-24 07:44:00 Danny Mcdonald Amina [facility] FERRITIN 2024-04-24 07:44:00 Kali Mcdonald [facility] IRON + TRANSFERRIN + TIBC 2024-04-24 07:44:00 Ramiro Owusu [facility] CALCIUM LEVEL IONIZED WHOLE BLOOD 2024-04-24 07:44:00 Ramiro Mcdonald Lawn [facility] POC GLUCOSE UNSOLICITED RESULTS 2024-04-24 07:27:00 Abimael Keller [facility] LACTATE DEHYDROGENASE 2024-04-24 03:19:00 Ramiro Mcdonaldwster [facility] PHOSPHORUS LEVEL 2024-04-24 03:19:00 Estevan Boucher [facility] COMPLETE BLOOD COUNT W/DIFF AND PLATELET 2024-04-24 03:19:00 Estevan Boucher [facility] COMPLETE BLOOD COUNT 2024-04-24 03:19:00 Ana Maria Boucher [facility] AUTOMATED DIFFERENTIAL 2024-04-24 03:19:00 Naa Boucher [facility] BASIC METABOLIC PANEL 2024-04-24 03:19:00 Scott Holm [facility] POC GLUCOSE UNSOLICITED RESULTS 2024-04-23 21:41:00 Abimael Keller [facility] POC GLUCOSE UNSOLICITED RESULTS 2024-04-23 15:57:00 Abimael Keller [facility] US CAROTID ARTERY DOPPLER BILATERAL 2024-04-23 07:15:00 Ramiro Mcdonald Lawn [facility] POC GLUCOSE UNSOLICITED RESULTS 2024-04-23 07:14:00 Abimael Keller [facility] PHOSPHORUS LEVEL 2024-04-23 00:58:00 Estevan Boucher [facility] COMPLETE BLOOD COUNT W/DIFF AND PLATELET 2024-04-23 00:58:00 Estevan Boucher [facility] COMPLETE BLOOD COUNT 2024-04-23 00:58:00 Ana Maria Boucher [facility] AUTOMATED DIFFERENTIAL 2024-04-23 00:58:00 Naa Boucher [facility] BASIC METABOLIC PANEL 2024-04-23 00:58:00 AriannaKarely n A [facility] POC GLUCOSE UNSOLICITED RESULTS 2024-04-22 21:13:00 Arianna Salman A [facility] POC GLUCOSE UNSOLICITED RESULTS 2024-04-22 16:03:00 Abimael Keller [facility] CT BRAIN WO IV CONTRAST 2024-04-22 14:01:51 Nighat Reynolds [facility] POC GLUCOSE UNSOLICITED RESULTS 2024-04-22 11:09:00 Abimael Keller A [facility] POC GLUCOSE UNSOLICITED RESULTS 2024-04-22 07:30:00 Abimael Keller A [facility] MRI FOOT RIGHT W AND WO IV CONTRAST 2024-04-22 02:11:00 Ramiro Mcdonald [facility] MAGNESIUM LEVEL 2024-04-22 00:17:00 Kali Mcdonald [facility] PHOSPHORUS LEVEL 2024-04-22 00:17:00 Estevan Boucher [facility] COMPLETE BLOOD COUNT W/DIFF AND PLATELET 2024-04-22 00:17:00 Estevan Boucher [facility] COMPLETE BLOOD COUNT 2024-04-22 00:17:00 Ana Maria Boucher [facility] AUTOMATED DIFFERENTIAL 2024-04-22 00:17:00 Naa Boucher [facility] BASIC METABOLIC PANEL 2024-04-22 00:17:00 Ramiro Mcdonald [facility] POC GLUCOSE UNSOLICITED RESULTS 2024-04-21 20:14:00 AriannaAbimael stanley A [facility] POC GLUCOSE UNSOLICITED RESULTS 2024-04-21 16:17:00 Arianna Salman [facility] POC GLUCOSE UNSOLICITED RESULTS 2024-04-21 11:18:00 Abimael Keller [facility] POC GLUCOSE UNSOLICITED RESULTS 2024-04-21 07:11:[address] [facility] 2024-04-21 00:50:[address] [facility] PHOSPHORUS LEVEL 2024-04-21 00:50:[address] [facility] C-REACTIVE PROTEIN 2024-04-21 00:50:00 Alexi Mcdonald [facility] COMPLETE BLOOD COUNT W/DIFF AND PLATELET 2024-04-21 00:50:00 KalEstevan carter [facility] SEDIMENTATION RATE 2024-04-21 00:50:00 Alexi Mcdonald [facility] COMPLETE BLOOD COUNT 2024-04-21 00:50:00 Ana Maria Boucher [facility] AUTOMATED DIFFERENTIAL 2024-04-21 00:50:00 KalNaa carter [facility] BASIC METABOLIC PANEL 2024-04-21 00:50:[address] POC GLUCOSE UNSOLICITED RESULTS 2024-04-20 19:58:[address] [facility] POC GLUCOSE UNSOLICITED RESULTS 2024-04-20 17:07:[address] [facility] MAGNESIUM LEVEL 2024-04-20 14:17:[address] [facility] BASIC METABOLIC PANEL 2024-04-20 14:17:[address] [facility] US LOWER EXTREMITY ARTERIAL DOPPLER BILATERAL 2024-04-20 12:21:[address] [facility] ramos [facility] POC GLUCOSE UNSOLICITED RESULTS 2024-04-20 11:51:[address] [facility] POC GLUCOSE UNSOLICITED RESULTS 2024-04-20 07:17:[address] [facility] MAGNESIUM LEVEL 2024-04-20 00:35:[address] [facility] PHOSPHORUS LEVEL 2024-04-20 00:35:00 KalavaEstevan lindsay [facility] C-REACTIVE PROTEIN 2024-04-20 00:35:00 Alexi Mcdonald [facility] COMPLETE BLOOD COUNT W/DIFF AND PLATELET 2024-04-20 00:35:00 Estevan Boucher [facility] COMPLETE BLOOD COUNT 2024-04-20 00:35:00 Ana Maria Boucher [facility] AUTOMATED DIFFERENTIAL 2024-04-20 00:35:00 Naa Boucher [facility] BASIC METABOLIC PANEL 2024-04-20 00:35:00 Rojelio Kendall [facility] XR FOOT 3+ VIEWS RIGHT 2024-04-19 21:08:00 Ramiro Hernandez Amina [facility] POC GLUCOSE UNSOLICITED RESULTS 2024-04-19 20:02:00 Abimael Keller [facility] SEDIMENTATION RATE 2024-04-19 17:58:00 Alexi Mcdonald [facility] IMMUNOFIXATION (PRINCE) URINE 2024-04-19 17:57:00 L Ramiro alcantara [facility] POC GLUCOSE UNSOLICITED RESULTS 2024-04-19 16:09:00 Abimael Keller [facility] MAGNESIUM LEVEL 2024-04-19 12:26:00 Estevan Boucher Ra [facility] IMMUNOFIXATION (PRINCE) 2024-04-19 12:26:00 [facility]OL[facility] 2024-04-19 12:26:00 Rojelio Kendall [facility] POC GLUCOSE UNSOLICITED RESULTS 2024-04-19 11:27:00 Chelo Melo [facility] POC GLUCOSE UNSOLICITED RESULTS 2024-04-19 07:08:00 Chelo Melo [facility] MAGNESIUM LEVEL 2024-04-19 03:28:00 Estevan Boucher Ra [facility] Epic PHOSPHORUS LEVEL 2024-04-19 03:28:00 KalEstevan carter [facility] COMPLETE BLOOD COUNT W/DIFF AND PLATELET 2024-04-19 03:28:00 ChancerEstevan [facility] COMPLETE BLOOD COUNT 2024-04-19 03:28:00 KalavarDome en Isac [facility] AUTOMATED DIFFERENTIAL 2024-04-19 03:28:00 Kalavar, Na heather Chau [facility] BASIC METABOLIC PANEL 2024-04-19 03:28:00 Faiza, Rojelio er [facility] POC GLUCOSE UNSOLICITED RESULTS 2024-04-18 20:51:00 Chelo Melo [facility] XR CHEST 1 VIEW 2024-04-18 19:02:32 Brian Sousa at [facility] POC GLUCOSE UNSOLICITED RESULTS 2024-04-18 16:12:00 Chelo Melo [facility] MAGNESIUM LEVEL 2024-04-18 12:45:00 KalavarEstevan Ra [facility] BASIC METABOLIC PANEL 2024-04-18 12:45:00 Faiza, Rojelio er [facility] POC GLUCOSE UNSOLICITED RESULTS 2024-04-18 11:17:00 Chelo Melo [facility] POC GLUCOSE UNSOLICITED RESULTS 2024-04-18 07:32:00 Chelo Melo [facility] MAGNESIUM LEVEL 2024-04-17 23:55:00 KalavarEstevan Ra [facility] PHOSPHORUS LEVEL 2024-04-17 23:55:00 KalavarEstevan [facility] COMPLETE BLOOD COUNT W/DIFF AND PLATELET 2024-04-17 23:55:00 KalavarEstevan [facility] COMPLETE BLOOD COUNT 2024-04-17 23:55:00 KalavarAna Maria [facility] AUTOMATED DIFFERENTIAL 2024-04-17 23:55:00 Kalavar, Naa veen Isac [facility] BASIC METABOLIC PANEL 2024-04-17 23:55:00 Faiza, Rojelio er [facility] POC GLUCOSE UNSOLICITED RESULTS 2024-04-17 20:10:00 Chelo Melo [facility] POC GLUCOSE UNSOLICITED RESULTS 2024-04-17 16:07:00 Chelo Melo [facility] POC GLUCOSE UNSOLICITED RESULTS 2024-04-17 11:39:00 Chelo Melo [facility] MAGNESIUM LEVEL 2024-04-17 11:31:00 KaljohnrEstevan Ra jose [facility] BASIC METABOLIC PANEL 2024-04-17 11:31:[address] POC GLUCOSE UNSOLICITED RESULTS 2024-04-17 07:23:00 Chelo Melo [facility] MAGNESIUM LEVEL 2024-04-17 00:10:00 KalavarEstevan Ra o [facility] PHOSPHORUS LEVEL 2024-04-17 00:10:00 KalavarEstevan ao [facility] COMPLETE BLOOD COUNT W/DIFF AND PLATELET 2024-04-17 00:10:00 KalavarEstevan [facility] COMPLETE BLOOD COUNT 2024-04-17 00:10:00 KalavarAna Maria [facility] AUTOMATED DIFFERENTIAL 2024-04-17 00:10:00 KalavarNaa [facility] BASIC METABOLIC PANEL 2024-04-17 00:10:00 Bob Kendallh joe [facility] POC GLUCOSE UNSOLICITED RESULTS 2024-04-16 20:54:[address] POC GLUCOSE UNSOLICITED RESULTS 2024-04-16 16:29:00 Chelo Melo [facility] MAGNESIUM LEVEL 2024-04-16 13:27:00 KalEstevan carter Ra [facility] BASIC METABOLIC PANEL 2024-04-16 13:27:00 Rojelio Kendall [facility] POC GLUCOSE UNSOLICITED RESULTS 2024-04-16 11:09:[address] [facility] POC GLUCOSE UNSOLICITED RESULTS 2024-04-16 07:13:00 Chelo Melo [facility] MAGNESIUM LEVEL 2024-04-16 01:55:[address] PHOSPHORUS LEV[facility] 2024-04-16 01:55:00 Naya Melo [facility] COMPLETE BLOOD COUNT W/DIFF AND PLATELET 2024-04-16 01:55:00 Chelo Melo [facility] COMPLETE BLOOD COUNT 2024-04-16 01:55:00 Sondra Melo Dariel [facility] AUTOMATED DIFFERENTIAL 2024-04-16 01:55:00 Chelo Melo Vieira [facility] BASIC METABOLIC PANEL 2024-04-16 01:55:00 Faiza, RojelioFormerly [facility] POC GLUCOSE UNSOLICITED RESULTS 2024-04-15 20:44:00 [facility]NS[facility]ICITED RESULTS 2024-04-15 16:45:00 Chelo Melo [facility] MAGNESIUM LEVEL 2024-04-15 14:21:00 [facility] PHOSPHORUS L[facility] 2024-04-15 14:21:00 Naya Melo [facility] BASIC METABOLIC PANEL 2024-04-15 14:19:00 Faiza RojelioFormerly [facility] POC GLUCOSE UNSOLICITED RESULTS 2024-04-15 11:46:00 Chelo Melo Vieira [facility] POC GLUCOSE UNSOLICITED RESULTS 2024-04-15 07:13:00 [facility] COMPREHENSIVE METABOLIC PANEL 2024-04-15 01:39:00 Johanna Chavez [facility] MAGNESIUM LEVEL 2024-04-15 01:39:00 [facility] 2024-04-15 01:39:00 [facility] COMPLETE BLOOD COUNT W/DIFF AND PLATELET 2024-04-15 01:39:00 Johanna Chavez [facility] COMPLETE BLOOD COUNT 2024-04-15 01:39:00 Johanna Chavez [facility] AUTOMATED DIFFERENTIAL 2024-04-15 01:39:00 Johanna Chavez [facility] POC GLUCOSE UNSOLICITED RESULTS 2024-04-14 21:28:00 [facility] MAGNESIUM L[facility]EL 2024-04-14 20:31:00 KoppDaisy sutherland [facility] PHOSPHORUS LEVEL 2024-04-14 20:31:00 Koppoe, Daisy Forrestko r [facility] BASIC METABOLIC PANEL 2024-04-14 20:31:00 Chelo Melo [facility] POC GLUCOSE UNSOLICITED RESULTS 2024-04-14 17:23:00 Chelo Melo Vieira [facility] BASIC METABOLIC PANEL 2024-04-14 13:04:00 Rojelio Kendall joe [facility] POC GLUCOSE UNSOLICITED RESULTS 2024-04-14 12:24:00 KameronMariamaCheloarabella Vieira [facility] POC GLUCOSE UNSOLICITED RESULTS 2024-04-14 07:24:00 Chelo Melo Vieira [facility] MAGNESIUM LEVEL 2024-04-14 01:42:00 Johanna Chavez [facility] PHOSPHORUS LEVEL 2024-04-14 01:42:00 Johanna Chavez [facility] COMPLETE BLOOD COUNT W/DIFF AND PLATELET 2024-04-14 01:42:00 Johanna Chavez [facility] COMPLETE BLOOD COUNT 2024-04-14 01:42:00 Johanna Chavez [facility] AUTOMATED DIFFERENTIAL 2024-04-14 01:42:00 Johanna Chavez [facility] COMPREHENSIVE METABOLIC PANEL 2024-04-14 01:42:00 Johanna Chavez [facility] POC GLUCOSE UNSOLICITED RESULTS 2024-04-13 21:35:00 Kameron Chelo Vieira [facility] POC GLUCOSE UNSOLICITED RESULTS 2024-04-13 16:37:00 Kameron Chelo Vieira [facility] POC GLUCOSE UNSOLICITED RESULTS 2024-04-13 11:30:00 Chelo Melo Vieira [facility] POC GLUCOSE UNSOLICITED RESULTS 2024-04-13 08:03:00 Chelo Melo [facility] MAGNESIUM LEVEL 2024-04-13 00:50:00 Johanna Chavez [facility] PHOSPHORUS LEVEL 2024-04-13 00:50:00 Johanna Chavez [facility] COMPLETE BLOOD COUNT W/DIFF AND PLATELET 2024-04-13 00:50:00 Johanna Chavez [facility] COMPLETE BLOOD COUNT 2024-04-13 00:50:00 Johanna Chavez [facility] AUTOMATED DIFFERENTIAL 2024-04-13 00:50:00 Kathy [facility] COMPREHENSIVE METABOLIC PANEL 2024-04-13 00:50:00 Johanna Chavez [facility] POC GLUCOSE UNSOLICITED RESULTS 2024-04-12 21:43:00 Chelo Melo [facility] UA WITH MICROSCOPIC NO CULTURE 2024-04-12 19:31:00 Johanna Chavez [facility] POC GLUCOSE UNSOLICITED RESULTS 2024-04-12 16:15:00 Chelo Melo [facility] PROTEIN URINE (UPE) 2024-04-12 12:23:00 Koppoe, Daisy Ko rkor [facility] PROTEIN ELECTROPHORESIS URINE PANEL 2024-04-12 12:23:00 Koppoe, Daisy [facility] PROTEIN ELECTROPHORESIS, SERUM 2024-04-12 12:21:00 Koppoe, Daisy [facility] KAPPA/LAMBDA FREE LIGHT CHAINS QUANTITIATIVE WITH RATIO 2024-04-12 12:21:00 Koppoe, Daisy [facility] POC GLUCOSE UNSOLICITED RESULTS 2024-04-12 11:47:00 Chelo Melo Vieira [facility] POC GLUCOSE UNSOLICITED RESULTS 2024-04-12 07:40:00 Gregorio Gaspar Johanny [facility] MAGNESIUM LEVEL 2024-04-12 00:39:00 [facility] 2024-04-12 00:39:00 [facility] COMPLETE BLOOD COUNT W/DIFF AND PLATELET 2024-04-12 00:39:00 Johanna Chavez [facility] COMPLETE BLOOD COUNT 2024-04-12 00:39:00 Johanna Chavez [facility] AUTOMATED DIFFERENTIAL 2024-04-12 00:39:00 Johanna Chavez [facility] COMPREHENSIVE METABOLIC PANEL 2024-04-12 00:39:00 Jhoanna Chavez [facility] POC GLUCOSE UNSOLICITED RESULTS 2024-04-11 21:02:00 Gregorio Gaspar [facility] POC GLUCOSE UNSOLICITED RESULTS 2024-04-11 16:25:00 Gregorio Gaspar [facility] POC GLUCOSE UNSOLICITED RESULTS 2024-04-11 11:44:00 Gregorio Gaspar Johanny [facility] POC GLUCOSE UNSOLICITED RESULTS 2024-04-11 07:37:[address] MAGNESI[facility] L[facility] 2024-04-11 00:23:00 Johanna Chavez [facility] PHOSPHORUS LEVEL 2024-04-11 00:23:00 Johanna Chavez rial [facility] COMPLETE BLOOD COUNT W/DIFF AND PLATELET 2024-04-11 00:23:[address] [facility] COMPLETE BLOOD COUNT 2024-04-11 00:23:[address] [facility] AUTOMATED DIFFERENTIAL 2024-04-11 00:23:[address] [facility] COMPREHENSIVE METABOLIC PANEL 2024-04-11 00:23:[address] [facility] POC GLUCOSE UNSOLICITED RESULTS 2024-04-10 20:24:[address] [facility] POC GLUCOSE UNSOLICITED RESULTS 2024-04-10 16:19:[address] [facility] POC GLUCOSE UNSOLICITED RESULTS 2024-04-10 11:22:[address] [facility] POC GLUCOSE UNSOLICITED RESULTS 2024-04-10 07:23:00 Gregorio Gaspar Johanny [facility] WOUND OSTOMY EVAL AND TREAT 2024-04-10 07:08:[address] [facility] MAGNESIUM LEVEL 2024-04-10 00:09:00 KathyJohanna ial [facility] PHOSPHORUS LEVEL 2024-04-10 00:09:00 KathyAngyy Elijah ria [facility] COMPLETE BLOOD COUNT W/DIFF AND PLATELET 2024-04-10 00:09:00 Kathy Johanna [facility] COMPLETE BLOOD COUNT 2024-04-10 00:09:[address] [facility] AUTOMATED DIFFERENTIAL 2024-04-10 00:09:00 Kathy Johanna [facility] COMPREHENSIVE METABOLIC PANEL 2024-04-10 00:09:00 Kathy Johanna [facility] POC GLUCOSE UNSOLICITED RESULTS 2024-04-09 20:40:[address] POC GLUCOSE UNSOLICITED RESULTS 2024-04-09 16:03:[address] [facility] POC GLUCOSE UNSOLICITED RESULTS 2024-04-09 11:07:[address] [facility] PTT 2024-04-09 09:04:00 Gregorio Gaspar Johanny [facility] POC GLUCOSE UNSOLICITED RESULTS 2024-04-09 07:14:00 Gregorio aGspar Johanny [facility] PT AND PTT 2024-04-09 01:00:00 Gregorio Gaspar Johanny [facility] MAGNESIUM LEVEL 2024-04-09 00:51:00 Johanna Chavez [place] ial [facility] PHOSPHORUS LEVEL 2024-04-09 00:51:00 [facility] COMPLETE [facility]LOOD COUNT W/DIFF AND PLATELET 2024-04-09 00:51:00 Johanna Chavez [facility] COMPLETE BLOOD COUNT 2024-04-09 00:51:00 Johanna Chavez [facility] AUTOMATED DIFFERENTIAL 2024-04-09 00:51:00 Johanna Chavez [facility] COMPREHENSIVE METABOLIC PANEL 2024-04-09 00:51:00 Johanna Chavez [facility] POC GLUCOSE UNSOLICITED RESULTS 2024-04-08 20:26:[address] [facility] PTT 2024-04-08 18:31:00 Gregorio Gaspar Johanny [facility] POC GLUCOSE UNSOLICITED RESULTS 2024-04-08 16:10:00 Gregorio Gaspar Johanny [facility] POC GLUCOSE UNSOLICITED RESULTS 2024-04-08 11:09:[address] [facility] PTT 2024-04-08 09:24:00 Gregorio Gaspar Johanny [facility] POC GLUCOSE UNSOLICITED RESULTS 2024-04-08 07:27:00 Gregorio Gaspar Johanny [facility] MAGNESIUM LEVEL 2024-04-08 00:53:00 Gregorio Gaspar Josh momin [facility] Epic PHOSPHORUS LEVEL 2024-04-08 00:53:00 Gregorio Gaspar [facility] COMPLETE BLOOD COUNT W/DIFF AND PLATELET 2024-04-08 00:53:00 Gregorio Gaspar [facility] PT AND PTT 2024-04-08 00:53:00 Gregorio Gaspar [facility] COMPLETE BLOOD COUNT 2024-04-08 00:53:00 Gregorio Gaspar Johanny [facility] AUTOMATED DIFFERENTIAL 2024-04-08 00:53:00 [facility] 2024-04-08 00:53:00 Gregorio Gaspar Johanny [facility] POC GLUCOSE UNSOLICITED RESULTS 2024-04-07 20:53:00 Gregorio Gaspar Johanny [facility] PROTIME-INR 2024-04-07 18:02:00 Ishac Brian [facility] PTT 2024-04-07 18:02:00 Ishac, [facility] POC GLUCOSE UNSOLICITED RESULTS 2024-04-07 17:26:00 Gregorio Gaspar Johanny [facility] POC GLUCOSE UNSOLICITED RESULTS 2024-04-07 12:05:00 Gregorio Gaspar Johanny [facility] POC GLUCOSE UNSOLICITED RESULTS 2024-04-07 07:09:00 Gregorio Gaspar Johanny [facility] MAGNESIUM LEVEL 2024-04-07 03:58:00 Gunner Cano [facility] PHOSPHORUS LEVEL 2024-04-07 03:58:00 Jeramie Cano [facility] COMPLETE BLOOD COUNT W/DIFF AND PLATELET 2024-04-07 03:58:00 Blanca Cano [facility] COMPLETE BLOOD COUNT 2024-04-07 03:58:00 Blanca Cano [facility] AUTOMATED DIFFERENTIAL 2024-04-07 03:58:00 Blanca Vera [facility] BASIC METABOLIC PANEL 2024-04-07 03:58:00 Blanca Cano [facility] Ok to Use Home Device: 2024-04-07 00:00:00 [facility] POC GLUCOSE UNSOLICITED RESULTS 2024-04-06 20:32:00 Gregorio Gaspar Johanny [facility] POC GLUCOSE UNSOLICITED RESULTS 2024-04-06 16:36:00 Gregorio Gaspar [facility] ECG 12-LEAD 2024-04-06 00:48:15 Tierney Holm [facility] MAGNESIUM LEVEL 2024-04-06 00:24:00 Gunner Cano [facility] PHOSPHORUS LEVEL 2024-04-06 00:24:00 Jeramie Cano [facility] COMPLETE BLOOD COUNT W/DIFF AND PLATELET 2024-04-06 00:24:00 Blanca Cano [facility] TROPONIN I HIGH SENSITIVITY (SINGLE ORDER) 2024-04-06 00:24:00 Tierney Holm [facility] [facility] COMPLETE BLOOD COUNT 2024-04-06 00:24:00 Blanca Cano [facility] AUTOMATED DIFFERENTIAL 2024-04-06 00:24:00 Blanca Vera [facility] BASIC METABOLIC PANEL 2024-04-06 00:24:00 Blanca Cano [facility] TISSUE EXAM 2024-04-05 17:15:00 Slick Galindo [facility] PUSH ENTEROSCOPY 2024-04-05 16:55:00 Chrissy Lazcano [facility] TYPE AND SCREEN 2024-04-05 03:53:00 Jessika Yadav [facility] POC GLUCOSE UNSOLICITED RESULTS 2024-04-05 01:31:00 Blanca Cano [facility] LACTIC ACID LEVEL 2024-04-05 01:24:00 Jessika Yadav [facility] MAGNESIUM LEVEL 2024-04-05 01:24:00 Gunner Cano [facility] PHOSPHORUS LEVEL 2024-04-05 01:24:00 Jeramie Cano [facility] COMPLETE BLOOD COUNT W/DIFF AND PLATELET 2024-04-05 01:24:00 Blanca Cano [facility] COMPLETE BLOOD COUNT 2024-04-05 01:24:00 Blanca Cano [facility] AUTOMATED DIFFERENTIAL 2024-04-05 01:24:00 Blnaca Vera [facility] BASIC METABOLIC PANEL 2024-04-05 01:24:00 Blanca Cano [facility] Hemoglobin and Hematocrit 2024-04-05 00:00:00 [facility] LACTIC ACID LEVEL 2024-04-04 18:50:00 Brian Sousa [facility] LACTIC ACID LEVEL 2024-04-04 15:41:00 Sia Cano [facility] MAGNESIUM LEVEL 2024-04-04 15:41:00 Gunner Cano [facility] PHOSPHORUS LEVEL 2024-04-04 15:41:00 Jeramie Cano [facility] TROPONIN I HIGH SENSITIVITY CARESET (1ST HR) 2024-04-04 15:41:00 Stan Irizarry [facility] HEMOGLOBIN AND HEMATOCRIT 2024-04-04 15:41:00 MillyViki shin [facility] CALCIUM LEVEL IONIZED WHOLE BLOOD 2024-04-04 15:41:00 Blanca Cano [facility] BASIC METABOLIC PANEL 2024-04-04 15:41:00 Blanca Cano [facility] XR CHEST 1 VIEW 2024-04-04 14:41:27 Stan Irizarry [facility] TROPONIN I HIGH SENSITIVITY CARESET 2024-04-04 13:30:00 Stan Irizarry [facility] TROPONIN I HIGH SENSITIVITY CARESET (BASELINE) 2024-04-04 13:30:00 Stan Irizarry [facility] TRANSTHORACIC ECHO (TTE) COMPLETE W/ STRAIN 2024-04-04 09:34:00 Blanca Cano [facility] PREPARE RBC 2024-04-04 08:54:03 Gunner Cano [facility] TRANSFUSE RED BLOOD CELLS 2024-04-04 08:52:00 Ga rciaBlanca [facility] POC GLUCOSE UNSOLICITED RESULTS 2024-04-04 06:31:00 Blanca Cano [facility] UA WITH CULTURE IF INDICATED 2024-04-04 00:11:00 Blanca Cano [facility] MAGNESIUM LEVEL 2024-04-04 00:10:00 Gunner Cano [facility] PHOSPHORUS LEVEL 2024-04-04 00:10:00 Jeramie Cano [facility] COMPLETE BLOOD COUNT W/DIFF AND PLATELET 2024-04-04 00:10:00 Blanca Cano [facility] COMPLETE BLOOD COUNT 2024-04-04 00:10:00 Blanca Cano [facility] AUTOMATED DIFFERENTIAL 2024-04-04 00:10:00 Blanca Vera [facility] BASIC METABOLIC PANEL 2024-04-04 00:10:00 Blanca Cano [facility] POC GLUCOSE UNSOLICITED RESULTS 2024-04-03 19:10:00 Blanca Cano [facility] XR CHEST 1 VIEW 2024-04-03 17:55:24 Gunner Cano [facility] HEMOGLOBIN AND HEMATOCRIT 2024-04-03 16:53:00 Viki Atkins [facility] BLOOD GAS, VENOUS 2024-04-03 15:34:00 Sia Cano [facility] PROCALCITONIN LEVEL 2024-04-03 15:34:00 Blanca Cano [facility] ECG 12-LEAD 2024-04-03 12:23:41 Viki Atkins [facility] LACTIC ACID LEVEL 2024-04-03 11:41:00 Sia Cano [facility] MAGNESIUM LEVEL 2024-04-03 11:41:00 Gunner Cano [facility] TROPONIN I HIGH SENSITIVITY (SINGLE ORDER) 2024-04-03 11:41:00 Blanca Cano [facility] COMPREHENSIVE METABOLIC PANEL 2024-04-03 11:41:00 Blanca Cano [facility] POC ARTERIAL BLOOD GAS AND BASIC PANEL UNSOLICITED RESULTS 2024-04-03 11:40:00 Blanca Cano Johnson [facility] POC GLUCOSE UNSOLICITED RESULTS 2024-04-03 11:25:00 Blanca Cano Johnson [facility] HEMOGLOBIN AND HEMATOCRIT 2024-04-03 09:12:00 iVki Atkins [facility] COMPLETE BLOOD COUNT W/DIFF AND PLATELET 2024-04-03 03:22:00 Viki Atkins [facility] PROTIME-INR 2024-04-03 03:22:00 Viki Atkins [facility] COMPLETE BLOOD COUNT 2024-04-03 03:22:00 Storm Atkins Joana [facility] AUTOMATED DIFFERENTIAL 2024-04-03 03:22:00 Liz Atkins [facility] BASIC METABOLIC PANEL 2024-04-03 03:22:00 Davina Azevedo [facility] PREPARE RBC 2024-04-02 21:20:38 Viki Atkins Joana [facility] TRANSFUSE RED BLOOD CELLS 2024-04-02 21:18:00 Viki Atkins Joana [facility] POC GLUCOSE UNSOLICITED RESULTS 2024-04-02 20:23:00 Viki Atkins [facility] POC GLUCOSE UNSOLICITED RESULTS 2024-04-02 18:40:00 MillyViki de anda [facility] US RENAL COMPLETE 2024-04-02 17:00:50 MillyViki de anda [facility] TRANSFUSE RED BLOOD CELLS 2024-04-02 16:40:00 MillyViki de anda [facility] US LOWER EXTREMITY ARTERIAL DOPPLER WITH ELLA BILATERAL 2024-04-02 13:38:00 Milly Viki Bernard [facility] TYPE AND SCREEN 2024-04-02 12:15:00 Milly Viki camejo [facility] COMPLETE BLOOD COUNT (NO DIFF) 2024-04-02 10:03:00 MillyViki [facility] PROTIME-INR 2024-04-02 10:03:00 MillyViki [facility] PTT 2024-04-02 10:03:00 MillyViki [facility] COMPREHENSIVE METABOLIC PANEL 2024-04-02 10:03:00 MillyViki [facility] POC GLUCOSE UNSOLICITED RESULTS 2024-04-02 08:59:00 MillyViki [facility] PVR 2024-02-16 00:00:00 [facility] ECG 12-LEAD 2024-02-10 16:23:29 [facility] ECG 12-LEAD 2024-02-10 16:23:29 Hematpo, [facility] ECG 12-LEAD 2023-12-12 18:24:30 [place] [place] [facility] [place] 12-[place]AD 2023-11-26 19:26:31 [facility] 12-[facility] 2023-09-25 17:56:59 [facility] 12-LEAD 2023-09-25 17:56:59 [facility] COMPREHENSIVE METABOLIC PANEL 2023-09-04 20:53:00 [facility] 2023-09-04 20:53:00 [facility] 2023-08-08 00:00:00 [facility] ECG 12-LEAD 2023-08-01 18:17:10 [facility] ECG 12-LEAD 2023-04-24 21:01:41 [facility] h ECG 12-LEAD 2023-01-13 23:49:02 Aakash Barrios [facility] PVR 2022-12-12 00:00:00 [facility] PVR 2022-09-11 00:00:00 [facility] ECG 12-LEAD 2021-11-19 16:14:00 Aakash Barrios [facility] Tonsillectomy 1956-05-05 06:00:00 Yolis Young Non-Invasive Ventilator - Az moriwalt Powell Epic Oxygen Therapy - Patient Type: Adult; Device: Nasal Cannula; Rate in liters per minute: 1 Lpm; SpO2 Goals (select one): COPD: 88%-92%; Follow Respiratory Pathway: Yes [facility] n [facility] [address] [facility] Fungal Culture w/Smear Memor ial Hector Epic Cardiac catheterization Elijah rial Powell Lamine[facility] Stent [facility]<sup>1</sup> [facility] Care Planned Activity Planned Date Details Comments Source Procedure 2024-06-10 00:00:00 POCT Glucose Mem orial Hector Epic Encounters Start Date/Time End Date/Time Encounter Type Admission Type Attending [facility] Care Facility Care Department Encounter ID Source 2024-04-02 07:08:00 Inpatient Elective BLANCA CANO [facility] General Medicine [id number] [facility] 2023-10-30 08:48:00 Outpatient SIL SERRANO [facility] CAR [id number] [facility] 2023-06-09 14:27:01 Outpatient Belkys Granger [facility] [id number] [facility] 2022-11-13 10:23:52 Outpatient [facility] [id number] [facility] 2022-08-06 10:34:02 Outpatient Alireza Calle [facility] [id number] [facility] 2021-10-29 14:57:02 Outpatient Kattegummul Alireza olivo [facility] [id number] [facility] 2021-08-15 10:27:03 Outpatient Kattegummul Alireza olivo [facility] [id number] [facility] 2021-08-14 16:05:03 Outpatient Kattegummul Alireza olivo [facility] [id number] [facility] 2021-07-27 12:10:02 Outpatient Kattegummul Alireza olivo [facility] [id number] [facility] 2020-11-03 14:00:38 Outpatient SURENDRA POLLARD [facility] [id number] [facility] 2024-06-22 10:30:00 2024-06-22 10:30:[address] [facility] [id number] [facility] 2024-05-25 11:00:00 2024-05-25 11:00:00 Outpatient EAGLE MCARTHUR [facility] [id number] [facility] 2024-04-21 00:00:00 2024-05-22 23:51:59 Telephone [facility] 1..840.114 350.1.13.70 8.2.7.2.686 [id number] [facility] 2024-05-11 20:11:00 2024-05-20 19:30:00 Inpatient Emergency [facility] General Medicine [id number] [facility] 2024-05-11 20:11:00 2024-05-20 19:30:00 Hospital Encounter Zaki Pollard, Claude Bobo [facility] 1..840.114 350.1.13.70 8.2.7.2.686 [id number] [facility] 2024-05-06 15:15:00 2024-05-06 15:15:00 Outpatient MAULIK MENDOZA [facility] [id number] [facility] 2024-04-02 07:08:00 2024-04-27 20:49:00 Inpatient Elective GREGORIO GASPAR [facility] Cardiology [id number] [facility] 2024-04-02 07:08:00 2024-04-27 20:49:00 Hospital Encounter Severo, Kimberly Atkins, Viki Cano, Blanca Gaspar, Gregorio Melo, Chelo Keller, Abimael Dominguez, Kathy Gas[facility] [place] [facility] 1..840.114 350.1.13.70 8.2.7.2.686 [id number] [facility] 2024-03-05 13:40:00 2024-03-05 13:40:00 Outpatient SIL SERRANO [facility] [id number] [facility] 2024-03-05 11:00:00 2024-03-05 11:00:00 Outpatient [facility] [id number] [facility] 2024-02-18 09:40:00 2024-02-18 11:14:59 Office Visit Eagle [facility] 1.840.114 350.1.13.58 9.2.7.2.686 [id number] [facility] 2024-02-18 08:00:00 2024-02-18 10:28:52 Outpatient [facility] [id number] [facility] 2024-02-16 00:00:00 2024-02-16 00:00:00 OFFICE VISIT ESTAB PT LEVEL 3 STLMLC STLMLC [id number] [facility] 2024-02-10 11:00:00 2024-02-10 11:43:25 Office Visit Toñito Plascencia [facility] 2 1..840.114 350.1.13.58 9.2.7.2.686 [id number] [facility] 2024-02-05 10:00:00 2024-02-05 12:28:01 Office Visit Trevor Salinas [facility] [address] 1.2.840.114 350.1.13.58 9.2.7.2.686 [id number] [facility] 2024-01-27 13:37:00 2024-02-01 13:57:00 Inpatient SIL SERRANO [facility] CAR [id number] [facility] 2024-01-08 14:00:00 2024-01-08 14:00:00 Outpatient MAULIK MENDOZA [facility] [id number] [facility] 2023-12-12 13:00:00 2023-12-12 14:37:09 Office Visit Aguilar Valenzuela [facility] [address] 1.2.840.114 350.1.13.58 9.2.7.2.686 [id number] [facility] 2023-12-12 11:40:00 2023-12-12 12:12:12 Office Visit Sil Serrano [facility] [address] 1.2.840.114 350.1.13.58 9.2.7.2.686 [id number] [facility] 2023-11-26 10:40:00 2023-11-26 15:31:22 Office Visit EAGLE MC[facility]THUR [facility] 1.2.840.114 350.1.13.58 9.2.7.2.686 [id number] [facility] 2023-10-31 13:00:00 2023-10-31 13:00:00 Outpatient AGUILAR VALENZUELA [facility] [id number] [facility] 2023-10-24 14:00:00 2023-10-24 14:00:00 Outpatient SIL SERRANO [facility] [id number] [facility] 2023-09-25 10:40:00 2023-09-25 13:02:11 Office Visit Lyubov [facility] 1.2.840.114 350.1.13.58 9.2.7.2.686 [id number] [facility] 2023-09-17 11:20:00 2023-09-17 11:20:00 Outpatient LYUBOVEAGLE [facility] [id number] [facility] 2023-09-04 15:30:00 2023-09-04 15:45:00 Office Visit Maulik Mendoza [facility] [address] 1..840.114 350.1.13.58 9.2.7.2.686 [id number] [facility] 2023-08-26 08:40:00 2023-08-26 23:59:00 Outpatient AAKASH BARRIOS [facility] CAR [id number] [facility] 2023-08-18 08:24:00 2023-08-18 15:15:00 Outpatient KATHY DOMINGUEZ [facility] CAR [id number] [facility] 2023-08-08 00:00:00 2023-08-08 00:00:00 OFFICE VISIT ESTAB PT LEVEL 3 STLMLC STLMLC [id number] [facility] 2023-07-31 11:40:00 2023-07-31 13:38:04 Office Visit LyubovEagle mason [facility] 1..840.114 350.1.13.58 9.2.7.2.686 [id number] [facility] 2023-07-31 10:00:00 2023-07-31 12:28:32 Outpatient [facility] [id number] [facility] 2023-07-24 13:00:00 2023-07-24 13:00:00 Outpatient MAULIK MENDOZA [facility] [id number] [facility] 2023-07-17 11:00:00 2023-07-17 11:00:00 Outpatient LYUBOVEAGLE Mason [facility] [id number] [facility] 2023-04-24 11:00:00 2023-04-24 12:40:57 Office Visit LyubovEagle [facility] 1..840.114 350.1.13.58 9.2.7.2.686 [id number] [facility] 2023-04-24 10:00:00 2023-04-24 12:35:50 Outpatient [facility] [id number] [facility] 2023-04-10 13:45:00 2023-04-10 14:12:35 Office Visit Maulik Mendoza [facility] [address] 1..840.114 350.1.13.58 9.2.7.2.686 [id number] [facility] 2023-04-10 11:40:00 2023-04-10 11:40:00 Outpatient EAGEL MCARTHUR [facility] [id number] [facility] 2023-04-10 10:00:00 2023-04-10 10:00:00 Outpatient [facility] [id number] [facility] 2023-01-13 16:20:00 2023-01-13 17:13:36 Office Visit Aakash Barrios [facility] [address] 1..840.114 350.1.13.58 9.2.7.2.686 [id number] [facility] 2022-12-12 00:00:00 2022-12-12 00:00:00 OFFICE VISIT ESTAB PT LEVEL 3 STLMLC STLMLC [id number] [facility] 2022-09-11 00:00:00 2022-09-11 00:00:00 OFFICE VISIT ESTAB PT LEVEL 3 STLMLC STLMLC [id number] [facility] 2022-03-25 13:40:00 2022-03-25 13:40:00 Outpatient AAKASH BARRIOS [facility] [id number] [facility] 2021-11-19 11:00:00 2021-11-19 11:57:59 Office Visit Aakash Barrios [facility] [address] 1.2.840.114 350.1.13.58 9.2.7.2.686 [id number] [facility] 2021-09-14 00:00:00 2021-09-14 00:00:00 Telephone Danay Navarro Jannine [facility] [address] 1.2.840.114 350.1.13.58 9.2.7.2.686 [id number] [facility] 2021-09-13 00:00:00 2021-09-13 00:00:00 Telephone Danay Navarro Jannine [facility] [address] 1.2.840.114 350.1.13.58 9.2.7.2.686 [id number] [facility] 2021-09-10 00:00:00 2021-09-10 00:00:00 Telephone Danay Navarro Jannine [facility] [address] 1.2.840.114 350.1.13.58 9.2.7.2.686 [id number] [facility] 2021-09-10 00:00:00 2021-09-10 00:00:00 Telephone Danay Navarro Jannine [facility] [address] 1.2.840.114 350.1.13.58 9.2.7.2.686 [id number] [facility] 2021-08-28 13:30:00 2021-08-28 14:00:00 Telephonic Encounter BarriosAakash caraballo [facility] [address] 1.2.840.114 350.1.13.58 9.2.7.2.686 [id number] [facility] 2021-08-17 00:00:00 2021-08-17 00:00:00 Telephone Magda Hanley Kellie [facility] 1.2.840.114 350.1.13.58 9.2.7.2.686 [id number] [facility] 2021-08-09 16:00:00 2021-08-09 16:40:00 Office Visit Aakash Barrios [facility] [address] 1.2.840.114 350.1.13.58 9.2.7.2.686 [id number] [facility] 2021-08-09 13:30:00 2021-08-09 14:54:42 Office Visit Maulik Mendoza [facility] [address] 1.2.840.114 350.1.13.58 9.2.7.2.686 [id number] [facility] 2021-08-07 00:00:00 2021-08-07 00:00:00 Telephone Tameka Ramos Marlenis [facility] [address] 1.2.840.114 350.1.13.58 9.2.7.2.686 [id number] [facility] 2021-07-27 00:00:00 2021-07-27 00:00:00 OFFICE VISIT NEW PT LEVEL 3 STLMLC STLMLC [id number] [facility] 2020-11-02 00:00:00 2020-11-02 00:00:00 Telephone MackPrakash [facility] [address] 1.2.840.114 350.1.13.58 9.2.7.2.686 [id number] [facility] 2016-10-06 11:50:00 2016-10-13 18:00:00 Inpatient nullFlavo r [facility] [id number] Yolis Young 2016-03-08 13:08:00 2016-03-09 04:59:00 Outpt Diag Services nullFlavo r [facility] [place] [id number] Yolis Young 2016-01-24 10:54:00 2016-01-26 00:10:00 Inpatient nullFlavo r [facility] [id number] Yolis Young 2015-11-06 07:18:00 2015-11-15 01:00:00 Inpatient nullFlavo r [facility] [id number] Yolis Young 2015-06-09 23:43:00 2015-06-11 22:03:00 Inpatient nullFlavo r [facility] [id number] Yolis Young 2012-01-14 13:18:00 2012-01-15 19:00:00 OU nullFlavo r [facility] [id number] Yolis Young Results Test Description Test Time Test Comments Results Result Co mments Source [facility] [id number] 13:03:43* Test Item Value Reference Range Interpretation Comme nts POC Glu (test code = 0484256516) 125 mg/dL 70-99 H POC Performing Location (nuria t code = 5264604958) 2N Lab Interpretation (test cod e = 62945-4) Abnormal [facility]Gram [id number] 12:03:56* Test Item Value Reference Range Interpretation Comme nts Respiratory Culture (test code = 42688-9) Few Yeast A Gram Stain (test code = 05427-5) No WBCs or organisms seen Lab Interpretation (test code = 90298-2) Abnormal [facility] [id number] 09:43:25* Test Item Value Reference Range Interpretation Comme nts Case Report (test code = 1499) Final Diagnosis (test code = 32040-9) u6wbsWVcZIYyeSXqCZ EwNVxhbnNpXHNwbHRw W0JiiezfCPfmAR1wOO 5veGxhdHRveWVuXGRl FlMyc5rtt256pJOhw8 xmMCBTZWdvZSBVSTt9 nCfmV81cj6P6HqrmL1 0glQLoELP2TAOgPHLt gYVhWYRkJUO1SIZcdV RbV2iqERAeXZ8gponx WPvzKMwtOPWtpWQ3SC HboNMgX6XeJHCbPMln JDTcpxq6BgTiXb3ndB VyeTcyMFxwYXJkXHBs YWluXGZzMjAgTGVmdC D7rTHsgsHts0AaAJMq g13efW0aoXSon3siac VyKRCoU3X3XNTbkqHj RQWaSEPkZM7pM6Z5tQ VkRHZluoImBOijT75i maFcR0YfgVZdKJGepv 0= Diagnosis Comment (test code = 35) d3wmbFViNNGmdQGjWD EwNVxhbnNpXHNwbHRw N4XgwecmKHrpES5aLJ 5veGxhdHRveWVuXGRl JsLsl8hnw958pCEnn3 xmMCBTZWdvZSBVSTt9 zWgbK55yr2O2GdxmY2 4paIXvLDJ1IDAtQSZs nICgFPFbHPD6HHLajT NvG3ljYYBqIY4gkatn HRvdCIynOHCnrQE4CB QszNRgD2WeWGXqIBwq YQZazfq6JcMnFg4hzY VyeTcyMFxwYXJkXHBs HIszTQJtNeWbX9n4t2 NsyX8mk6eqvtJcDIld zVlnlYVnlXCrQQ6kB0 HtqFgoP4ZrTZJvpdFj VYHbSLIpQ0LnnY7lRQ 2dGWQuk40oBWMyPN0i bnRzLlxwYXJ9 Clinical Information (test code = 29) e5wsuWIfMOYsr2inVM VmbGFuZzEwMzNcZnRu Tiu5RVIpkmW7Gcc2OS AdVCskgO5pUFMnLWfb S8wjsoTkbQBmQ4Dzk9 LkEYx9lT7yuEjsjD0e ZjBcZnMyMCBwYXRpZW 93XRmdoYgiaH3ofV8m jiniWVOgstElrPU6RC Qhi0KppN2sDYR6mS8t XHBhciB9 Macroscopic Description (test code = [id number]) d0hwjAHdFQTmsQVfVD EwNVxhbnNpXHNwbHRw W5XmwceoOWnmND7oTG 5veGxhdHRveWVuXGRl SaLbx3mzz814cOYcb9 xmMCBTZWdvZSBVSTt9 vAtlI87yu2B7FzogN5 3wdAIbYWH8YGUdRUHx eKQdTPKvVZR2TWKskT TiE7fuMKVmED8qcrdq UMwfJGopSKUdmIM7IO IyfQPmO2GqJWBoRUya BIRkhgs6CsDaRp2huK VyeTcyMHtcKlxlcGlj g5GybQZmBZyrVPNwOH TkXIoifghyONf9IEXu PZkniUKuLJ6rbRttUg wfnPwfx5BlrBAlJFbt IDUxMDAyIFxcZGIgT1 WTNWViUCL5FNW6BoXm PXk4FLvzU3AKPRStTK FyCZIfHSU1ScX6CHd3 MWZDKz1fJxV1YwW8QT D2SXE9ZwFuHPammMTv XAyzn6BdYmEaHPEnGC qtpnHcXYenah0doPGk ZFxwbGFpblxmczIwIE CqOMy7zdioJMleJySn RAQxETSsCH0dCG3ydJ AmWOVrbaQsa6MiEQuf cGljWHNiMzBccGxhaW 9zAqOnUdOUzPMwhQ3s pfRuk597WYxeJHTnoR NyDWiaTAB9UUryeWki pOI6yBVqdFEwKV8sMF 9ubHkgXHBhclxwYXJk FYNtSC1BWR5qFDHcrW amdOe7KSQhz15tiTGm bHVpZCByZWNlaXZlZC Zmut2auY2zPEnqF9s6 VDCtLTXqcu3uvRxfSP oxTEEts1JbVYlugShq WHNhMzAgMiBjeXRvc3 BpbnMgcHJlcGFyZWR7 RELkwBMnFHJ7OS2ywI mlTDCsU9EoP9GnbrS1 XHBhcn0= Microscopic Description (test code = 32) e0vlbKSvNBIhzEHvGV EwNFxhbnNpXHNwbHRw G7AdqntqEZrmIZ0zBI 5veGxhdHRveWVuXGRl MfFbd2fsm951xHZcg5 xmMCBTZWdvZSBVSTt9 b5buUNDWkedrjBg5pN ngI34nw3L3VgpzM55f vEOsQKJ0AWVnEEHieS YwDBBwFGN4DRMepSDu N5qrUKIcWE4omztcIA qvAPrqFEHsqZD9TBAb nSZtO6QpDFFvNYwyKS Xjgka5SwZjJr4fvAGg rQcgTKysB1zhvZ3aYb A4GQtrP8zsbD2gHPp7 CYykLHGliDP0hcZ8QV CmpEEjE3OsoY6zMDId JE7assj3g1jfLNF7BL wbOBSdTeH5elG3MATj cGFyZFxwbGFpblxmMV rltwOoOODqfAzwhn3z N29lmLYqBExgfMnpCI Hqs22xjJKnOYWjKQ7k yDKuPk6hbWLgBKAzYW N9fICdAtoaHEeoL2Lb AYJpXGzpT28hdK8zEO HxGAQnebH5uQLuAXtd A69kv4vzDUCnn7FuAy ZBeESssY5icEOyimGb RW1gMP5pS9C1jQTvGX RoysOmg2dmOWVttkHc fUobhIrmnU5qpQTqiY RviNIsceIpqE7phJ7n wMwuvH0cdODbvWOuaR BzdGFpbnMsIGlmIHBl yiFiaw8yFBGfk5OnsW hpcyBjYXNlLCBoYXZl CTSsNN6ofzA6bMB5FQ GdGD0vWKF0ythim6Qt k9VnGMN1dIKeLC8xyC QvJCWrMUAqBADnIB3n Vl90lyLawA1cCkGjYX Nter9lzrlmdRWuLZEq cn0= Non-Clinical Documentation (test code = 1922409325) o1uhnONtQJHdhOSoHA EwNVxhbnNpXHNwbHRw J9UdwooyJXauFG7iLT 5veGxhdHRveWVuXGRl KpUhe5mox367rVHdq2 xmMCBTZWdvZSBVSTt9 g4dgQLHSvidouAx1pY iiP10us8C1LoieX8wn ZWQwXGdyZWVuMFxibH MaDJs5PGAepYWlznQv RtHdDGCiyVUbpLT1HO HaDS2lminqOCqmXSag UEJvfoA0FWVlzKWoO1 QeXKBbLR0lzvojPZT2 MEkaRDSpMJL6BqIqCF Qgr8Ipwgk4ZxSlnSu5 j4ouVLQgRPCwgByix5 pcRGV3UYGmpQUbM6hm yJ5hGCIyHG3fmprhe9 huMTgwMFxtYXJndHN4 dpN7JGZupPChB1UldU 4xNDQwXHBhcmRccGxh xD7zMuZdDrLyFSrrKz RoLOAqM8Iei1egCdXc zbSfq4FaZKUyaY2uMY HvlvEbid6aOGZipKAO RR2dgwktuJUZUORrOP 9qOVOubBIki1MhaVXC g4AosVPauTqlNhAnZY CMVEMorW23uGzoVJ16 i2KketprMGH5ZNHzBx mnWiNqBVASqYTqu9Wy i8NsBsNgcEAzjQ3tpH oewjPaamMbGVemA33f m2geWTJovsTnio4rKJ YtxMUKJQ9ozjszqXBP TACqHS6vSDVeQZGjEK 0iGScef1WlcCGsZOOr NeJrPGSEv5E6fVPYhq Bvr4I1YDBNWXVqiMCd KCeeJLauVxu5VXRhTN BhciBSZWNlaXZlZCAx QcB1QmOmUmDczNRdbY == [facility] Kkkiyqk3853-61-67 08:44:37* Test Item Value Reference Range Interpretation Comme nts POC Glu (test code = 9808314435) 138 mg/dL 70-99 H POC Performing Location (nuria t code = 6609568466) 2N Lab Interpretation (test cod e = 48364-2) Abnormal [facility] Meppmkn9276-82-47 17:02:24* Test Item Value Reference Range Interpretation Comme nts POC Glu (test code = 2189001118) 129 mg/dL 70-99 H POC Performing Location (nuria t code = 9518042232) 2N Lab Interpretation (test cod e = 46999-4) Abnormal [facility] Sodkebv7623-58-54 11:34:11* Test Item Value Reference Range Interpretation Comme nts POC Glu (test code = 6288132181) 146 mg/dL 70-99 H POC Performing Location (nuria t code = 9028153436) 2N Lab Interpretation (test cod e = 40390-6) Abnormal [facility] Xksxlew2889-74-80 08:54:12* Test Item Value Reference Range Interpretation Comme nts POC Glu (test code = 1597357768) 155 mg/dL 70-99 H POC Performing Location (nuria t code = 5059726923) 2N Lab Interpretation (test cod e = 94433-5) Abnormal [facility] Bxitupx7330-71-26 16:59:34* Test Item Value Reference Range Interpretation Comme nts POC Glu (test code = 9574463145) 154 mg/dL 70-99 H POC Performing Location (nuria t code = 9144286259) 2N Lab Interpretation (test cod e = 72073-4) Abnormal [facility] Msmdrdg4857-35-32 12:12:28* Test Item Value Reference Range Interpretation Comme nts POC Glu (test code = 6008641985) 135 mg/dL 70-99 H POC Performing Location (nuria t code = 0702638546) 2N Lab Interpretation (test cod e = 25343-1) [facility] Sqvhae0292-59-80 12:00:11* Test Item Value Reference Range Interpretation Comme nts Nucleated Cells BAL (test code = 3059063383) Range Not Established Cells/uL RBC BAL (test code = 7988216042) Range Not Established Cells/uL Neutrophils BAL (test code = 03872-6) 18 % Range Not Established Lymphs BAL (test code = 5044442) 10 % Range Not Established Macrophages BAL (test code = 3377954) 72 % Range Not Established Color BAL (test code = 9770977179) Red Colorless A Appearance BAL (test code = 2440231283) Bloody Clear Comment BAL (test code = 1290537070) Cellular clumps and cluster of nucleated cells seen. Interpret results accordingly. Lab Interpretation (test code = 02323-2) Abnormal [facility] Svnyyoa2200-82-34 16:40:17* Test Item Value Reference Range Interpretation Comme [facility] POC Glu (test code = 5857481437) 208 mg/dL 70-99 H POC Performing Location (nuria t code = 4764727930) 2N Lab Interpretation (test cod e = 30921-4) Abnormal [facility] Kbpintk7708-22-14 12:58:48* Test Item Value Reference Range Interpretation Comme [facility] POC Glu (test code = 2882746075) 307 mg/dL 70-99 H POC Performing Location (nuria t code = 7858080482) 2N Lab Interpretation (test cod e = 28046-1) Abnormal [facility] Duibnrv7154-29-29 08:01:31* Test Item Value Reference Range Interpretation Comme [facility] POC Glu (test code = 1745970766) 128 mg/dL 70-99 H POC Performing Location (nuria t code = 0194133638) 2N Lab Interpretation (test cod e = 67863-2) Abnormal [facility] Dsleune7617-52-19 16:38:33* Test Item Value Reference Range Interpretation Comme nts POC Glu (test code = 0585611950) 191 mg/dL 70-99 H POC Glu Comment 1 (test code = 4065833515) Notified RN/MD POC Performing Location (nuria t code = 1310766997) 2N Lab Interpretation (test cod e = 38864-6) Abnormal [facility] Ecddzzp4180-15-38 13:06:05* Test Item Value Reference Range Interpretation Comme nts POC Glu (test code = 5069550413) 239 mg/dL 70-99 H POC Glu Comment 1 (test code = 0203341287) Notified RN/MD POC Performing Location (nuria t code = 5503727544) 2N Lab Interpretation (test cod e = 82772-3) Abnormal [facility] Pealitu9708-96-02 08:45:43* Test Item Value Reference Range Interpretation Comme nts POC Glu (test code = 4141960331) 123 mg/dL 70-99 H POC Performing Location (nuria t code = 1685197524) 2N Lab Interpretation (test cod e = 05650-6) Abnormal [facility] Joouapd6820-09-54 16:35:36* Test Item Value Reference Range Interpretation Comme nts POC Glu (test code = 6239031163) 191 mg/dL 70-99 H POC Glu Comment 1 (test code = 8396995850) Notified RN/MD POC Performing Location (nuria t code = 0431031496) 2N Lab Interpretation (test cod e = 94556-9) Abnormal [facility] Mhxnprr1479-73-51 12:14:25* Test Item Value Reference Range Interpretation Comme nts POC Glu (test code = 6730366032) 192 mg/dL 70-99 H POC Glu Comment 1 (test code = 4220529972) Notified RN/MD POC Performing Location (nuria t code = 4741090528) 2N Lab Interpretation (test cod e = 10424-6) Abnormal [facility] Stajoqd1285-07-41 07:43:00* Test Item Value Reference Range Interpretation Comme nts POC Glu (test code = 6755154333) 129 mg/dL 70-99 H POC Performing Location (nuria t code = 9428623907) 2N Lab Interpretation (test cod e = 81722-5) Abnormal [facility] Moauneu8692-28-77 06:43:14* Test Item Value Reference Range Interpretation Comme nts POC Glu (test code = 6661550876) 126 mg/dL 70-99 H POC Performing Location (nuria t code = 3717006811) 2N Lab Interpretation (test cod e = 32343-4) Abnormal [facility] Aywbmic8310-68-22 16:50:00* Test Item Value Reference Range Interpretation Comme nts POC Glu (test code = 9803210691) 261 mg/dL 70-99 H POC Glu Comment 1 (test code = 3571939474) Notified RN/MD POC Performing Location (nuria t code = 4438580928) 2N Lab Interpretation (test cod e = 03406-8) Abnormal [facility] Ntsycjb0483-69-17 12:15:33* Test Item Value Reference Range Interpretation Comme nts POC Glu (test code = 2635603312) 145 mg/dL 70-99 H POC Glu Comment 1 (test code = 3767260933) Notified RN/MD POC Performing Location (nuira t code = 6481958312) 2N Lab Interpretation (test cod e = 78752-3) Abnormal [facility] Crqnydn0607-79-90 08:54:04* Test Item Value Reference Range Interpretation Comme nts POC Glu (test code = 5232842886) 176 mg/dL 70-99 H POC Performing Location (nuria t code = 2857275937) 2N Lab Interpretation (test cod e = 43875-0) Abnormal [facility] Jqybepp2095-19-56 16:59:47* Test Item Value Reference Range Interpretation Comme nts POC Glu (test code = 9917211451) 179 mg/dL 70-99 H POC Glu Comment 1 (test code = 9168097970) Notified RN/MD POC Performing Location (nuria t code = 9259319961) 2N Lab Interpretation (test cod e = 33212-4) Abnormal [facility] Wejsivv8165-11-46 12:50:09* Test Item Value Reference Range Interpretation Comme nts POC Glu (test code = 6793048891) 137 mg/dL 70-99 H POC Performing Location (nuria t code = 6601437688) 2N Lab Interpretation (test cod e = 00318-5) Abnormal [facility] Kfzbbch0998-50-51 09:34:59* Test Item Value Reference Range Interpretation Comme nts POC Glu (test code = 6991253498) 155 mg/dL 70-99 H POC Performing Location (nuria t code = 5320317311) 2N Lab Interpretation (test cod e = 29725-4) Abnormal [facility] Fpiqqiy4025-05-13 20:15:51* Test Item Value Reference Range Interpretation Comme nts POC Glu (test code = 5159337656) 227 mg/dL 70-99 H POC Performing Location (nuria t code = 0398614420) 2N Lab Interpretation (test cod e = 64057-8) Abnormal [facility] Hlxgvam3444-38-31 17:21:09* Test Item Value Reference Range Interpretation Comme nts POC Glu (test code = 9159770976) 144 mg/dL 70-99 H POC Performing Location (nuria t code = 7241277202) 2N Lab Interpretation (test cod e = 26335-3) Abnormal [facility] Wkczkdt5182-02-65 16:50:30* Test Item Value Reference Range Interpretation Comme nts POC Glu (test code = 5853636167) 103 mg/dL 70-99 H POC Glu Comment 1 (test code = 5774656205) Notified RN/MD POC Performing Location (nuria t code = 9939361037) HV4 CIMU Lab Interpretation (test cod e = 17529-4) Abnormal [facility] Bbjcqwo9941-24-27 11:51:09* Test Item Value Reference Range Interpretation Comme nts POC Glu (test code = 7010809030) 196 mg/dL 70-99 H POC Glu Comment 1 (test code = 3025433010) Notified RN/MD POC Performing Location (nuria t code = 8871253067) HV4 CCU Lab Interpretation (test cod e = 31717-6) Abnormal [facility] Kaidhgs3156-63-85 08:10:43* Test Item Value Reference Range Interpretation Comme nts POC Glu (test code = 5624015099) 86 mg/dL 70-99 POC Performing Location (nuria t code = 9712653146) HV4 CCU [facility] Wojucpo4439-90-28 20:31:03* Test Item Value Reference Range Interpretation Comme nts POC Glu (test code = 2066398692) 170 mg/dL 70-99 H POC Glu Comment 1 (test code = 7898754810) Notified RN/MD POC Performing Location (nuria t code = 0671632029) HV4 CIMU Lab Interpretation (test cod e = 58928-7) Abnormal [facility] Plpblyp7272-40-14 17:05:48* Test Item Value Reference Range Interpretation Comme nts POC Glu (test code = 2529170388) 143 mg/dL 70-99 H POC Performing Location (nuria t code = 0868097833) HV4 CCU Lab Interpretation (test cod e = 46890-3) Abnormal [facility] Khdbxfi3481-49-73 11:46:43* Test Item Value Reference Range Interpretation Comme nts POC Glu (test code = 9427145516) 181 mg/dL 70-99 H POC Performing Location (nuria t code = 9997200999) 4 CCU Lab Interpretation (test cod e = 75372-3) Abnormal [facility] Gnbnnox5809-14-13 08:06:05* Test Item Value Reference Range Interpretation Comme nts POC Glu (test code = 9051797001) 88 mg/dL 70-99 POC Performing Location (nuria t code = 9309500687) [address] Nytwugb0610-79-64 23:14:15* Test Item Value Reference Range Interpretation Comme nts POC Glu (test code = 4782024379) 178 mg/dL 70-99 H POC Performing Location (nuria t code = 2610819719) 4 CIMU Lab Interpretation (test cod e = 67966-9) Abnormal [facility] Pxtwsva7168-53-53 17:22:16* Test Item Value Reference Range Interpretation Comme nts POC Glu (test code = 8556498246) 149 mg/dL 70-99 H POC Performing Location (nuria t code = 4700750000) 4 CCU Lab Interpretation (test cod e = 97651-9) Abnormal [facility] Viynrjb0168-13-60 11:35:18* Test Item Value Reference Range Interpretation Comme nts POC Glu (test code = 4201751866) 239 mg/dL 70-99 H POC Glu Comment 1 (test code = 2482777792) Notified RN/MD POC Performing Location (nuria t code = 8141744765) [facility] CIMU Lab Interpretation (test cod e = 03652-6) Abnormal [facility] Kbaoxza6000-96-23 07:54:43* Test Item Value Reference Range Interpretation Comme nts POC Glu (test code = 9433030296) 94 mg/dL 70-99 POC Performing Location (nuria t code = 0407531554) [address] Rzekgla6272-80-38 20:38:42* Test Item Value Reference Range Interpretation Comme nts POC Glu (test code = 6196509722) 197 mg/dL 70-99 H POC Performing Location (nuria t code = 5455728363) HV4 CIMU Lab Interpretation (test cod e = 06234-9) Abnormal [facility] Bslnosm5975-00-14 16:47:48* Test Item Value Reference Range Interpretation Comme nts POC Glu (test code = 3617557123) 115 mg/dL 70-99 H POC Performing Location (nuria t code = 5203496710) [facility] CCU Lab Interpretation (test cod e = 08242-2) Abnormal [facility] Wbnirqb8393-72-97 11:52:18* Test Item Value Reference Range Interpretation Comme nts POC Glu (test code = 1390508884) 239 mg/dL 70-99 H POC Glu Comment 1 (test code = 6624288599) Notified RN/MD POC Performing Location (nuria t code = 8962717561) [facility] CIMU Lab Interpretation (test cod e = 43582-2) Abnormal [facility] Pgdjmig8098-31-61 07:48:25* Test Item Value Reference Range Interpretation Comme nts POC Glu (test code = 9853786789) 107 mg/dL 70-99 H POC Glu Comment 1 (test code = 0139345658) Notified RN/MD POC Performing Location (nuria t code = 4097436476) [facility] CIMU Lab Interpretation (test cod e = 57570-6) Abnormal [facility] Jxpspvc1591-21-71 21:49:51* Test Item Value Reference Range Interpretation Comme nts POC Glu (test code = 5308371326) 96 mg/dL 70-99 POC Glu Comment 1 (test code = 5772846259) Notified RN/MD POC Performing Location (nuria t code = 7424438013) [address] Aatigtu7183-30-87 16:29:32* Test Item Value Reference Range Interpretation Comme nts POC Glu (test code = 7436706319) 206 mg/dL 70-99 H POC Glu Comment 1 (test code = 7540468097) Notified RN/MD POC Performing Location (nuria t code = 8936722135) [facility] CIMU Lab Interpretation (test cod e = 76849-6) Abnormal [facility] Iahfpgu6525-20-13 07:39:05* Test Item Value Reference Range Interpretation Comme nts POC Glu (test code = 1141606690) 113 mg/dL 70-99 H POC Performing Location (nuria t code = 2839804363) HV4 CIMU Lab Interpretation (test cod e = 96845-5) Abnormal [facility] Rvbkvam5047-79-62 21:22:23* Test Item Value Reference Range Interpretation Comme nts POC Glu (test code = 0873208297) 151 mg/dL 70-99 H POC Glu Comment 1 (test code = 6170193474) Notified RN/MD POC Performing Location (nuria t code = 7622398852) HV4 CCU Lab Interpretation (test cod e = 76600-5) Abnormal [facility] Lvndhwm3557-31-89 16:41:55* Test Item Value Reference Range Interpretation Comme nts POC Glu (test code = 9405738748) 102 mg/dL 70-99 H POC Glu Comment 1 (test code = 2780363270) Notified RN/MD POC Performing Location (nuria t code = 4316825195) HV4 CIMU Lab Interpretation (test cod e = 73865-1) Abnormal [facility] Vunryga5754-94-04 11:41:31* Test Item Value Reference Range Interpretation Comme nts POC Glu (test code = 8082255538) 208 mg/dL 70-99 H POC Glu Comment 1 (test code = 2841269367) Notified RN/MD POC Performing Location (nuria t code = 8406012937) HV4 CIMU Lab Interpretation (test cod e = 86098-6) Abnormal [facility] Izamukk8378-99-30 08:34:32* Test Item Value Reference Range Interpretation Comme nts POC Glu (test code = 9208871998) 113 mg/dL 70-99 H POC Glu Comment 1 (test code = 7779723935) Notified RN/MD POC Performing Location (nuria t code = 4140504826) HV4 CCU Lab Interpretation (test cod e = 68052-4) Abnormal [facility] Lvtbcwn8783-56-97 21:37:56* Test Item Value Reference Range Interpretation Comme nts POC Glu (test code = 9691880150) 201 mg/dL 70-99 H POC Performing Location (nuria t code = 2617859446) HV4 CCU Lab Interpretation (test cod e = 99078-3) Abnormal [facility] Cverqel3515-64-43 16:26:11* Test Item Value Reference Range Interpretation Comme nts POC Glu (test code = 2487101800) 97 mg/dL 70-99 POC Performing Location (nuria t code = 4090723821) 4 CCU [facility] Ifoqevo4089-38-90 11:43:02* Test Item Value Reference Range Interpretation Comme nts POC Glu (test code = 4976790561) 274 mg/dL 70-99 H POC Performing Location (nuria t code = 9442626152) 4 CIMU Lab Interpretation (test cod e = 91211-3) Abnormal [facility] Izceeun7474-56-41 07:25:00* Test Item Value Reference Range Interpretation Comme nts POC Glu (test code = 3653549579) 149 mg/dL 70-99 H POC Performing Location (nuria t code = 4838483324) HV4 CIMU Lab Interpretation (test cod e = 51843-5) Abnormal [facility] Jscjcvw4663-18-10 20:30:58* Test Item Value Reference Range Interpretation Comme nts POC Glu (test code = 9630833737) 168 mg/dL 70-99 H POC Performing Location (nuria t code = 0238664336) HV4 CCU Lab Interpretation (test cod e = 22623-6) Abnormal [facility] Gazzgzt8350-71-91 17:16:20* Test Item Value Reference Range Interpretation Comme nts POC Glu (test code = 6775752661) 226 mg/dL 70-99 H POC Performing Location (nuria t code = 8170945394) 4 CIMU Lab Interpretation (test cod e = 84316-8) Abnormal [facility] Ntniswi7639-35-86 12:00:28* Test Item Value Reference Range Interpretation Comme nts POC Glu (test code = 1549088662) 147 mg/dL 70-99 H POC Performing Location (nuria t code = 6719652044) HV4 CIMU Lab Interpretation (test cod e = 99875-0) Abnormal [facility] Ltenptp5685-14-76 07:34:14* Test Item Value Reference Range Interpretation Comme nts POC Glu (test code = 8567739135) 148 mg/dL 70-99 H POC Performing Location (nuria t code = 1414722570) HV4 CIMU Lab Interpretation (test cod e = 79238-6) Abnormal [facility] Rmbcddu6859-85-74 21:04:35* Test Item Value Reference Range Interpretation Comme nts POC Glu (test code = 1049171325) 143 mg/dL 70-99 H POC Performing Location (nuria t code = 8731903149) [facility] CCU Lab Interpretation (test cod e = 75735-6) Abnormal [facility] Cfgpzlr9124-17-84 16:53:11* Test Item Value Reference Range Interpretation Comme nts POC Glu (test code = 3066057308) 118 mg/dL 70-99 H POC Glu Comment 1 (test code = 2961324728) Notified RN/MD POC Performing Location (nuria t code = 7352686672) [facility] CIMU Lab Interpretation (test cod e = 62121-5) Abnormal [facility] Wwxqguc9417-17-52 11:45:09* Test Item Value Reference Range Interpretation Comme nts POC Glu (test code = 8784067945) 295 mg/dL 70-99 H POC Performing Location (nuria t code = 1931078440) [facility] CIMU Lab Interpretation (test cod e = 84625-9) Abnormal [facility] Xlvoyzl9660-11-73 07:32:08* Test Item Value Reference Range Interpretation Comme nts POC Glu (test code = 1078179988) 131 mg/dL 70-99 H POC Glu Comment 1 (test code = 9734111986) Notified RN/MD POC Performing Location (nuria t code = 9403191947) [facility] CIMU Lab Interpretation (test cod e = 33494-6) Abnormal [facility] Yecoysj8289-18-31 21:25:44* Test Item Value Reference Range Interpretation Comme nts POC Glu (test code = 1530834911) 153 mg/dL 70-99 H POC Performing Location (nuria t code = 5775339207) 4 CIMU Lab Interpretation (test cod e = 31191-0) Abnormal [facility] Hnxgahw7608-41-22 17:53:44* Test Item Value Reference Range Interpretation Comme nts POC Glu (test code = 2214374386) 168 mg/dL 70-99 H POC Glu Comment 1 (test code = 7485679877) Notified RN/MD POC Performing Location (nuria t code = 9590006936) HV4 CIMU Lab Interpretation (test cod e = 14483-5) Abnormal [facility] Fsowobn7664-28-08 11:59:49* Test Item Value Reference Range Interpretation Comme nts POC Glu (test code = 0450140763) 259 mg/dL 70-99 H POC Glu Comment 1 (test code = 4134137022) Notified RN/MD POC Performing Location (nuria t code = 9267410745) HV4 CIMU Lab Interpretation (test cod e = 57477-6) Abnormal [facility] Ntqjxjo7715-56-62 07:44:31* Test Item Value Reference Range Interpretation Comme nts POC Glu (test code = 8242318808) 118 mg/dL 70-99 H POC Performing Location (nuria t code = 6027334647) HV4 CIMU Lab Interpretation (test cod e = 62031-6) Abnormal [facility] Qqpdwfz9144-09-24 02:43:29* Test Item Value Reference Range Interpretation Comme nts POC Glu (test code = 6924560058) 219 mg/dL 70-99 H POC Performing Location (nuria t code = 4810666038) HV4 CIMU Lab Interpretation (test cod e = 30577-9) Abnormal [facility] Exkkxws4257-77-70 16:26:56* Test Item Value Reference Range Interpretation Comme nts POC Glu (test code = 6539676077) 180 mg/dL 70-99 H POC Glu Comment 1 (test code = 3704005171) Notified RN/MD POC Performing Location (nuria t code = 8725688369) HV4 CIMU Lab Interpretation (test cod e = 43274-4) Abnormal [facility] Xytbinq0205-75-24 11:54:28* Test Item Value Reference Range Interpretation Comme nts POC Glu (test code = 1776152725) 300 mg/dL 70-99 H POC Glu Comment 1 (test code = 7966758699) Notified RN/MD POC Performing Location (nuria t code = 8583616742) HV4 CIMU Lab Interpretation (test cod e = 68649-9) Abnormal [facility] Wetaexi8868-09-09 07:44:05* Test Item Value Reference Range Interpretation Comme nts POC Glu (test code = 6838295524) 114 mg/dL 70-99 H POC Performing Location (nuria t code = 7667895932) HV4 CIMU Lab Interpretation (test cod e = 87944-3) Abnormal [facility] Yafaniv8499-12-31 21:12:18* Test Item Value Reference Range Interpretation Comme nts POC Glu (test code = 4153652944) 166 mg/dL 70-99 H POC Performing Location (nuria t code = 4054746610) HV4 CIMU Lab Interpretation (test cod e = 72889-5) Abnormal [facility] Ucqnsrq8783-67-47 16:54:52* Test Item Value Reference Range Interpretation Comme nts POC Glu (test code = 0649392966) 139 mg/dL 70-99 H POC Glu Comment 1 (test code = 3489015716) Notified RN/MD POC Performing Location (nuria t code = 4873083307) HV4 CIMU Lab Interpretation (test cod e = 75693-2) Abnormal [facility] Xqtgtwq4682-28-85 11:43:35* Test Item Value Reference Range Interpretation Comme nts POC Glu (test code = 9714167775) 218 mg/dL 70-99 H POC Glu Comment 1 (test code = 4782738409) Notified RN/MD POC Performing Location (nuria t code = 4648476911) HV4 CCU Lab Interpretation (test cod e = 16006-2) Abnormal [facility] Dbaiibj4018-49-63 07:44:14* Test Item Value Reference Range Interpretation Comme nts POC Glu (test code = 2817033820) 108 mg/dL 70-99 H POC Glu Comment 1 (test code = 4264376800) Notified RN/MD POC Performing Location (nuria t code = 1237026779) HV4 CCU Lab Interpretation (test cod e = 27642-4) Abnormal [facility] Eeyxluc0269-30-33 21:03:37* Test Item Value Reference Range Interpretation Comme nts POC Glu (test code = 7244412296) 171 mg/dL 70-99 H POC Glu Comment 1 (test code = 5917063791) Notified RN/MD POC Performing Location (nuria t code = 7920332353) HV4 [facility]U Lab Interpretation (test cod e = 70455-5) Abnormal [facility] Gntzlng3223-28-90 17:17:17* Test Item Value Reference Range Interpretation Comme nts POC Glu (test code = 5423460385) 118 mg/dL 70-99 H POC Glu Comment 1 (test code = 5846985146) Notified RN/MD POC Performing Location (nuria t code = 1134147196) HV4 [facility] Lab Interpretation (test cod e = 39165-7) Abnormal [facility] Lxmzjmx1935-09-05 12:03:36* Test Item Value Reference Range Interpretation Comme nts POC Glu (test code = 0007509405) 186 mg/dL 70-99 H POC Glu Comment 1 (test code = 0280262524) Notified RN/MD POC Performing Location (nuria t code = 4688251438) 4 C[facility]U Lab Interpretation (test cod e = 40553-0) Abnormal [facility] Mfpilyt1289-80-39 08:13:15* Test Item Value Reference Range Interpretation Comme nts POC Glu (test code = 4028263012) 112 mg/dL 70-99 H POC Glu Comment 1 (test code = 8476180732) Notified RN/MD POC Performing Location (nuria t code = 0695806211) HV4 [facility] Lab Interpretation (test cod e = 40185-4) Abnormal [facility] Zclwvbm0317-00-49 21:44:00* Test Item Value Reference Range Interpretation Comme nts POC Glu (test code = 6071850440) 163 mg/dL 70-99 H POC Glu Comment 1 (test code = 5121926060) Notified RN/MD POC Glu Comment 2 (test code = 4557902073) Cleaned Meter POC Performing Location (nuria t code = 0172394072) HV4 CCU Lab Interpretation (test cod e = 61040-6) Abnormal [facility] Zwjmrcp6954-10-00 17:27:05* Test Item Value Reference Range Interpretation Comme nts POC Glu (test code = 2318345259) 129 mg/dL 70-99 H POC Performing Location (nuria t code = 8915238167) HV4 [facility] Lab Interpretation (test cod e = 51622-0) Abnormal [facility] Zvswidd6264-85-77 12:51:17* Test Item Value Reference Range Interpretation Comme nts POC Glu (test code = 2718358499) 119 mg/dL 70-99 H POC Performing Location (nuria t code = 5193693681) HV4 CCU Lab Interpretation (test cod e = 96315-9) Abnormal [facility] Xknqrgo8842-18-30 07:41:03* Test Item Value Reference Range Interpretation Comme nts POC Glu (test code = 7776573553) 90 mg/dL 70-99 POC Performing Location (nuria t code = 9913654427) [address] Lppbqwh2942-10-37 22:18:26* Test Item Value Reference Range Interpretation Comme nts POC Glu (test code = 3694641498) 111 mg/dL 70-99 H POC Performing Location (nuria t code = 6746590786) 4 [facility] Lab Interpretation (test cod e = 64255-1) Abnormal [facility] Dvczpgc8202-16-04 16:45:47* Test Item Value Reference Range Interpretation Comme nts POC Glu (test code = 1209696427) 118 mg/dL 70-99 H POC Performing Location (nuria t code = 5233620257) 4 CCU Lab Interpretation (test cod e = 19620-2) Abnormal [facility] Fbmucyv1612-77-02 11:45:30* Test Item Value Reference Range Interpretation Comme nts POC Glu (test code = 0930536562) 124 mg/dL 70-99 H POC Performing Location (nuria t code = 4795933523) HV4 CCU Lab Interpretation (test cod e = 42309-6) Abnormal [facility] Jmgzlgc9728-96-39 08:14:51* Test Item Value Reference Range Interpretation Comme nts POC Glu (test code = 8480714757) 99 mg/dL 70-99 POC Performing Location (nuria t code = 1884775962) [address] Zhxbdaz0998-53-90 22:13:34* Test Item Value Reference Range Interpretation Comme nts POC Glu (test code = 9707574251) 143 mg/dL 70-99 H POC Performing Location (nuria t code = 7770501653) 4 [facility] Lab Interpretation (test cod e = 79053-0) Abnormal [facility] Fgmodur5343-76-47 16:26:06* Test Item Value Reference Range Interpretation Comme nts POC Glu (test code = 7692390630) 149 mg/dL 70-99 H POC Glu Comment 1 (test code = 8400376758) Notified RN/MD POC Performing Location (nuria t code = 1013349089) 4 CCU Lab Interpretation (test cod e = 48085-9) Abnormal [facility] Puoexbi4657-35-28 12:03:08* Test Item Value Reference Range Interpretation Comme nts POC Glu (test code = 0985259052) 126 mg/dL 70-99 H POC Glu Comment 1 (test code = 7916755291) Notified RN/MD POC Performing Location (nuria t code = 5333692235) HV4 [facility] Lab Interpretation (test cod e = 66136-9) Abnormal [facility] Axwyudh4187-37-64 07:55:47* Test Item Value Reference Range Interpretation Comme nts POC Glu (test code = 1749766258) 98 mg/dL 70-99 POC Performing Location (nuria t code = 0190772342) 4 CIM[facility] Bwhdljn4843-48-23 22:08:47* Test Item Value Reference Range Interpretation Comme nts POC Glu (test code = 6893804881) 143 mg/dL 70-99 H POC Performing Location (nuria t code = 7552878387) 4 C[facility] Lab Interpretation (test cod e = 55053-1) Abnormal [facility] Frtmuiv8511-21-94 16:28:59* Test Item Value Reference Range Interpretation Comme nts POC Glu (test code = 2201676968) 155 mg/dL 70-99 H POC Performing Location (nuria t code = 4449328328) 4 C[facility] Lab Interpretation (test cod e = 73372-5) Abnormal [facility] Phmwszj6012-56-73 11:50:48* Test Item Value Reference Range Interpretation Comme nts POC Glu (test code = 1405160577) 139 mg/dL 70-99 H POC Performing Location (nuria t code = 1802100299) HV4 [facility] Lab Interpretation (test cod e = 78372-2) Abnormal [facility] Yuzsdkf0205-51-26 07:44:28* Test Item Value Reference Range Interpretation Comme nts POC Glu (test code = 9749568684) 112 mg/dL 70-99 H POC Performing Location (nuria t code = 4588083851) HV4 [facility] Lab Interpretation (test cod e = 06885-8) Abnormal [facility] Sxxhvtc2857-80-17 21:30:06* Test Item Value Reference Range Interpretation Comme nts POC Glu (test code = 5308962837) 164 mg/dL 70-99 H POC Glu Comment 1 (test code = 6196019203) Notified RN/MD POC Performing Location (nuria t code = 1023423841) 4 CCU Lab Interpretation (test cod e = 40778-2) Abnormal [facility] Kfroajh8297-93-47 16:29:49* Test Item Value Reference Range Interpretation Comme nts POC Glu (test code = 2164482283) 101 mg/dL 70-99 H POC Performing Location (nuria t code = 9687907051) 4 C[facility] Lab Interpretation (test cod e = 96149-0) Abnormal [facility] Adsxrod3219-89-04 11:44:31* Test Item Value Reference Range Interpretation Comme nts POC Glu (test code = 8871473341) 200 mg/dL 70-99 H POC Glu Comment 1 (test code = 4736451199) Notified RN/MD POC Performing Location (nuria t code = 9702225621) 4 C[facility] Lab Interpretation (test cod e = 74362-8) Abnormal [facility] Phabowt5473-79-33 07:57:57* Test Item Value Reference Range Interpretation Comme nts POC Glu (test code = 3457080654) 109 mg/dL 70-99 H POC Performing Location (nuria t code = 2196194385) 4 C[facility] Lab Interpretation (test cod e = 70615-6) Abnormal [facility] Dnznyvv0895-55-32 21:35:18* Test Item Value Reference Range Interpretation Comme nts POC Glu (test code = 0742316441) 164 mg/dL 70-99 H POC Glu Comment 1 (test code = 9794304236) Notified RN/MD POC Performing Location (nuria t code = 8304004818) 4 CCU Lab Interpretation (test cod e = 19578-2) Abnormal [facility] Ijexdaa6465-73-77 17:00:52* Test Item Value Reference Range Interpretation Comme nts POC Glu (test code = 9968173597) 149 mg/dL 70-99 H POC Performing Location (nuria t code = 0148097721) 4 C[facility] Lab Interpretation (test cod e = 49506-5) Abnormal [facility] Ubkipnv8296-38-02 11:52:26* Test Item Value Reference Range Interpretation Comme nts POC Glu (test code = 3231542547) 192 mg/dL 70-99 H POC Glu Comment 1 (test code = 6571931206) Notified RN/MD POC Performing Location (nuria t code = 0286993842) 4 CCU Lab Interpretation (test cod e = 64100-9) Abnormal [facility] Jahhhrz4465-12-32 08:07:51* Test Item Value Reference Range Interpretation Comme nts POC Glu (test code = 9166079369) 108 mg/dL 70-99 H POC Performing Location (nuria t code = 8305861563) 4 C[facility] Lab Interpretation (test cod e = 31355-4) Abnormal [facility] Ezxnsgd4251-95-36 20:54:58* Test Item Value Reference Range Interpretation Comme nts POC Glu (test code = 0178782142) 159 mg/dL 70-99 H POC Glu Comment 1 (test code = 2077748688) Notified RN/MD POC Performing Location (nuria t code = 8911766447) 4 [facility] Lab Interpretation (test cod e = 70384-7) Abnormal [facility] Ouitioe9999-54-04 16:35:36* Test Item Value Reference Range Interpretation Comme nts POC Glu (test code = 0246844452) 119 mg/dL 70-99 H POC Performing Location (nuria t code = 9018304720) 4 CCU Lab Interpretation (test cod e = 32324-6) Abnormal [facility] Ksnaabxghhy8096-11-58 14:25:23* Test Item Value Reference Range Interpretation Comme nts Case Report (test code = 1499) Final Diagnosis (test code = 83552-6) p9mylPCxTFJwxHQkQW ZoO2qxfjBaVFCfgWPy F6CoorrkYAmrYJ3tHK 5veGxhdHRveWVuXGRl WqFmh0qzs098kXSoq5 xmMCBTZWdvZSBVSTt9 lZknI16ea4Z2RxwzS2 2zpYKoTKF6NXWpBMEm dFFnIDBlKQL1CJSvlQ NzH9xqPNZiED5bomsv EZzjBFcqFDBlxWO7HR WblWObE2NpDJIsHYcu PMHaeew7RtOeOy4sjH VyeTcyMFxwYXJkXHBs PCdsMLVeNpQvZ9YKGV JZVSewZr7GNNqUCVGK KE0YA6s2YRDyldh2NW IgLSBIWVBFUlBMQVNU XFLoTO5ESTHwV9pWUB RKK6NGIuIsA1aEJ97T BoRSOvSSVF9GTMDUX7 0nLBXigwp2QGZxXNJY zIRstR4uvD3hzQarfJ 9jaGVtaWNhbCBzdGFp wnZff0PkLE7dEYbbs4 QdTWqnJG9hX8N8pWWx LlxwYXJccGFyfQ== Clinical Information (test code = 29) e4nfzLQnFWVlqSTnVL YgC9mccmOyQQMrzUKu J0TxkdbpKIvuLC7cRQ 5veGxhdHRveWVuXGRl JtQwx6sop499oIUlz5 xmMCBTZWdvZSBVSTt9 uJfcN34ly9H5WhbiA9 7qdCQhOQA7MVWtTFKk yTQwQOPoHMH2MSKuyT GnZ9cuGXRmON2luthl XKwrCYdlTWUslLN2MP WkuMGgL1PxYAKwMUwy ROGytlm0XuEkFj1hyS VyeTcyMFxwYXJkXHBs EOitCOHrTkYmQ3SnlG ZgLwLuy5H8wJAojQZh fQ== Macroscopic Description (test code = 2211857294) a9yfnVRpZFNkdKKRXP TaLSXcUR7cbPnliUw8 tQqjPBVahpZ6pYMiIT sqm4glSGP1m7dpfyEM LqseHRQiRD7rGObxEL EvCM1zRuHaPXUbXsTu XHBhcGVydzEyMjQwXH OchNTlvUW0AOCaVT1a cmdsMTgwMFxtYXJncj N4EQEhaDMxY5AwCVYq OO1izdxxFRT9EXUXXw ogUi1pgHTbsPwkDsMb ZmNoYXJzZXQwXGZzd2 lzcyBTZWdvZSBVSTt9 kZ4YPFWwP4XqPK5Es6 nmQBPfuSUnGWZ7IYff l4huFYqySQF5VUUuDR LgJPIdZI0XVwIqKSNn BFe1OmifQQo2QAk5MK IZGAWkQDK8GPI4OHo0 PTYmEU7xKMmkcVZxPG liLlutNEraJ032PSzb QBZsX1WpI5JpIEboIl BcXGlkIDUxMDAyIFxc ZTDkG3CECKAkAcF9On VmVAWxIOg9ZNroA4LE ENGyISEyWdb3HUHuJj R6TFr0CQCWGs6eZjD1 OoAzYvEiRHL6HbR0YX nerLPbVWfcb6LmBaKl NRLlKWtmhbH9GLTsbx GgHButkMjinN9uNdDg NUNBQpMUIZP0hcrgPV TmQMleOCj0ngZbXQJf QgWbvTOdIE3NXJNmut EoAZqtaNfltS0hoIRu V7fmAeFjFgezmMqrGp VzdERvYzEgDQpcbHRy cGFyXHNhMzBcZXBpY1 pePFDvIY3YMOzvUNWu ZWNpbWVuIGlzIHJlY2 RediIkMZwsJSHmuj7d bGluLCBsYWJlbGVkIH ulbAhcaHL7uNBeyCug IJ0liQNqPK0CQmgiYN 1qLHwwKYDnu4okynK2 VZOoQrpxs6ZybJLxjk 3bbJpkJlCocqAqR40x y7qhhOYup4OkCeG3RQ 0uFlFme11xvFZsAAv6 pQFvNRPsRYhmBU13zx TrTtRkx1J3QERdm1X5 YYAtHDZyJZ8rEUB4iz crQuEnIrWoG44qgE8g M4LtSSIyt2InBZuaUK 2hzJ0vVlNWrDKos6Mt K8zzBJ0unQXmSzsbsB DuDLFrhScse7MxbXRl POZlj1BfiXYvKYxlIR 8iADV9Fc3ufFTtNPUu bnRpcmVseSBpbiBBMQ 0JRZWciDKMLGW1BQ2x RIyfEDTqT8KzU2Xkkc F8u9uekDgmm5AwaUGl WJ7rkVAmNF4XYFVwzz XeTXikyQysvW1kEUw0 Microscopic Description (test code = 32) k7dqyMMvLTUtsDOkGy NuFLXiETRrh2ytZMFo bGFuZzEwMzNcZnRuYm zddLMzEFAkFuAfl3ir d052aICkv7uzRZVqGt C1eSBxMZTcD54aXRHY G668EFElQHjqv5boe6 CuJHPcrZRlj5Z2PRSO ZMtqTEKCDWh3mXdeO9 0ga0O4PqklZ0yiPMSi JWMpP5TwVA3nTPQwCa c4KHM1KQM3QTCqVHJh W7XaMB9sDLEiaNDzGI t9n1mhwKglSYEtISH7 s1rzIYtqiwHqBB6pcf 6cxZz3n7owcnUlBQGb TGTfpTYXWPZfG3IegA hxNq6asAe1tHdcRmjd NZF0Spx7ZO5wow75yd h9oXuaNGRhlcyvBfQ8 YEtvAZUjcryqCMk9BZ wbMIDjmBI6YZUduBWz G4AnIVFaRE6eszp2CM G8QOlaMRSaZsV8EBTz aGVhZGVyeTcyMFxmb2 23DJW0DcNuTC1dA6Gp d7Y4uF0taGWwZNZarS HnUfCpELCugu2zbUQu QZpes8AxSCU6gvH0iD UhgPNoBJSmBR37Sism t7ZlImwwBLP2AWAsjv Fmd9Dra9hoKiXikkIl T6zoO7CzPNEvNYQgMU ZyGdNiodQun5Aft0Ng vMLzqWw3r5grGQHbRK SaxAknh6yzCFN3TMMd R0S4eOTja2avLVbrAW MxwVT5oyX7GJJjfEEw J8TneJ4kHUDzER9fpc w0j6jxVEO0BRtkBKMr CjN9qsP5COTyzZAeGR RyjFgyRQlmb304OLO0 CnZpZJJwu0TbF7VzsX kbB38vsPexO87jCGNp rDdmmA0aoVobkD9fJs BcZnMyNFxxbFxwbGFp blxmMVxmczIyXGxhbm caLOOyWPxoI0pnVwNj HZMrnPqzGTigj6QwUB YxXGZzMjIgQSBtaWNy h4Vkj2TdGrMtoTMuiI 5hdGlvbiBoYXMgYmVl rtKyAUPcm4TkSFImEM 4zAHEfCPZjfC7ayC2b uvMetaExdM9vc7Rbc9 JhdGVkIGluIHRoZSBk tYOojy2ycYRxXGRqcw DgOAQhXXZcd8IzeRo0 ZSBhbmQgbmVnYXRpdm MfS26nhZFjsUNrGx9y GPOddOClaJH7z0NbBE 7oX0HmFTToWNUbzH52 ok9mjQP9q2OyJX4uS7 OaVSV1CNxhuukslNBs kLMcVe3heTVfRUWuyc Q6wJtjPJNmr8PoGKlk dmUgYmVlbiByZXZpZX dlZCBhbmQsIHVubGVz gvNltXgcryswo2Rkjm 90ZWQsIGhhdmUgYmVl exSqr3BuULY5bjDxNA AigUMjq1TrdYV1ZT6u cGFyfQ== Non-Clinical Documentation (test code = 4655134552) g7hqjHVyVNDiv2zwTA VmbGFuZzEwMzNcZnRu YmpcdWMxIHtccnRmMV cyr3QxS2ZeAhDtSTtr bnNpXGRlZmxhbmcxMD QmIHU9vwJnNXMqGMrp CQAgRLozVa1eyHCnbK sgNoMdHCKmx9osugGZ FUnfDKFJYEl3e3heDY FdBxQ0mAEqPSaqE8xl kzUjxXNpAQVlJEp9vC 50UAGkiY8myVTrOKpx foWiYpO1RKusKUPgYp E7HCIvtNZxCGJyU6di ZWQwXGdyZWVuMFxibH StZTN5jSmiu2N7sSHp aGVldHtcZjBcZnMyMi VHp9SrJPc7jBdtC1Ur QADwAtI7qKTcGEVrGV cuAXIhXYNspoR0qU60 XJjtwwL9dJGht0Knh6 6zn790mW5hmMQyKZL0 MTIyNDBccGFwZXJoMT V9AOSmeQTfI3syBVNu WV9lfvouXQorMMggOM ZvsRS5MXMilUSyJ6Rd RAEcKLdkFOVfkdm4On EiRe3jiWYukSxhXYzb h7jwl5mbzBOdNea2FU CrSiWnImxeHIsqa4Mo w8nnFSJtml3wWIM8dF PvhReqg9F6lYNhPBOb oAJubxCvSEIoGsU0GP gnNO1xgo01RKUiQOF2 tf6atZBhxCjadnPmzU OkSGnrY1AnZKMju843 STNzY4EiXZTjq5E3we QuOyDfHRZcjOY0gvM2 IJIlHZg0yNVjxkE5oy LfrPHfF0nnyB4lTISr QA7xsymbw4ndKSriER gjMIPjhDD3alI9MSUq kGNjF7BhaD6rRACsWJ cnOTOimut9PdHlGw2r dGVyeTcyMFxzYmtwYW dlXHBnbmNvbnRccGdu ZGVjXHBsYWluXHBsYW luXGYwXGZzMjRccWxc wFonuB2cTbAiRyOkIC lqRP6mHGLcX1yxaGPz CCNwYXPfY1nrFyJvpD 9jaFxmMVxmczIwIFNv tGNpb6JqrEoqTHindT Fxr2glp1GcH4fcuEhq SIyybNVocHLehY6ybV bmbiRcWL9mgRG2ZVMm ZOIsikIlh8LvKANflr XllBlrmEVzmORbDy0k wLGwG8CiN9tfrtNymE PwrTM2pCZlMHOtsSUg bWluZWQgYnkgTWVtb3 JpYWwgSGVybWFubiBT t3R7tAzmt9VuVU6ulP p7PIvdNCEtr0CyxI1f cN2vOZOlGGwnnQX5JL Mvd6FjIwIhiiUqyGZp lhJlWB8iCVFcfWBzjt JeTXC2SZWiZDFTHlRC LqERi33nOKSkHZYSoq KrREAofYaywJZ1afF8 zB5dIyXrXDugNPKDDQ GbJDNbUGA8JKWazS3s MAM1kTT1SFP5A1bsQ3 buBREgenWvAE4rSWDs sSJzgqNdTSmwSE0jsX XjQIQvw6PmadqgBJMG mUNkTZZ7LKJ5dpJrdw ZfjELpESCuq1IiM3hw dgghWEijiEQfnU1pSA IlDDHJlVC0IJWop5Qe OPXfh0MhEwJpuhAqYD UsQIZxJGQkdM89HHR1 vVfevWtxvaRrIJ3jNB ZvbfGbWYOlLESvnZ5m AKWmwRYyfLDkb1CptS 5yhAWccwEcPXz0jNE9 CAQpiL6lPFQdkKvhBL ZhbM6uB9ZySCyjMs0l BGUlwalgEJ6ira29JE 8lxxXjND5dxrIbIV25 zrHgXpN2dSNyMKq8PR OqN2vMLSzwWHLyrNQo bGlmaWVkIHRvIHBlcm Bcgn8acFrqdYFfl95t dQJ1aCT6INVnzB6xG2 HrLOAyb5NqypbjYPcr bGFpblxmMVxmczIyXG vckdleAFZiJVdrG8bc ZjFcZGJjaFxmMVxsb2 NoXGYxXGZzMjJccGFy fXtccnRmMVxhbnNpXG RlZmxhbmcxMDMzXGZ0 dwErKOYgREN0MRC4Wb FcZXBpYzExMTAxXGFu d2jnt0IqyFOulKGqKB jyeSLbrySaox32qHW2 eJ65JK1vSKRiLkR7YE IqynE5Mum3HXMsEJBo K31yRLXJF634m1yak7 vthhMlzWK0SGCqCTAo T3OkZV8xILRgbQPaQ2 0nzRSaZOV6IJUmXNBs nRLcXLBoEWV3BRJrfO ZsY3pfRIRcPB4kurhj ORfmDNgvFQBsvEK3MP TqaXJlG7GiSTZxPHej PRFzhbs2CbAtLm4bkA CejCpzNFppQ3cevS2z JkI0OMqpB7kstY3tOD h9WAwgEYYvbOW2avZ9 BIDwrDCeU5YxbD2rAO HhEY5hnak4r2eoDPN9 YDtkZEYlHsG8lbU1CU BccGFyZFxwbGFpblxm czIwXHBhclxjZjEgVG yhd4PvUAFrv1Xzi8Yn isiwMY3tNWXtcPQpAU KwJLYgqaC1aC9fPRMq llJojv2pCFLcdVIRLU 0kwlkybPCIFJOhMJ8d E5LBMOSkwSJdRG8lVX 6GSHgow9VkxBOaOiwr PBLuEFagll5yF43iyF ZnQJuyjYjjVUQui05x DS6dJXAmBJasc6Punc AzSPWdk1LfVHKbORIz ELRss8NpUPtgZCUwlT Ixrl8TZGveZIm5zLTr WAPDOtSLu7MkfQWspV 3cxSSxPQD3WXElRtEp vojlGBPGd0NzlM5hRC SOBKO8BjGqWP5jrQHb fX19 Teaching Physician Statement (test code = 1272218750) m1llrEQhPFUtyYZqMn SwGBOdYFLsh9juPNIp bGFuZzEwMzNcZnRuYm qohQXxSZVhUaKzy0tq b799aWBha5laIEDgJg J1sAJaEDSxM93sHFTK I444DGVaPGaea7etb1 WhWZQkhRYhe1F0ILJA jrkslUx6xLlgM01zj9 D6InxkH7ubHOJmYIIx N3SsTL1jDJEjEsa0EN O6FVW4PKDcJGTaW5Lh YR7bWBJixEEbSIf1c0 cxnNuaCYWqXEO7r9us CVeukjVtDH9eph3ihB o2m7kowfLiWJHdYPJy zQCJRRYeK9DgoZqsBu 7xxYb9dXqaJwcrPBL7 Ril3BY2gqx76mbw1oB xpIJNzcwjwDpG9MNai TTQitozsQUe2WYjyLJ TutCI0OKZtcAJoR8Ij XJDsYC6oszp5VBK3RI jlRWFlTvD2VYUbfHTu CNEuySmpJGtfa936HO N6KdErJN0pQ5Gyz5C8 tU2mbZTlQTRlgQLyHd FlBGXfqc0ncPMeXZgh e0YpLXN1ptD0jRHafS ClDCRvBW96Qockn6Rp QqdcEJN2TDOoocIuy3 Rsi5sbAyOuhdNnO6bd G1KlXFAdNFIeRSHjEd LwdpVrh7Zpf9OeuQRw gWp5k1feSQIbKRFtpZ duq8jhLKD6RGCvO5Y8 bGOry3fpYPzvLADpzX V4eiF2TFLsrBOyT0Bc xP6sZZNnWE3zqoj0k8 fcMLN6PVuvRLYwPeK1 ksB4IOEveYMbPWOjcI wpFAksd584FFD8McTy BSOlp8IlF7HmaHzlB5 9jjPwfY84vXMAlaCbq dI1cwWbsgV5sBhQeLq MyNFxxbFxwbGFpblxm MVxmczIwXGxhbmcxMD IoBJgfM7ioSdJtRGIx nAikYQkmb7AhQPQrON AmCaVqTqptnOQ0WHDw ZISvu36jsCr5HQBvpk rkj8UkHCOmZRJeZVWj ZGVudCdzIHByZWxpbW ukQHP8THvgtHKcpDQb tSV3oZ3lRAIqKCBfgN sxe0SfK3jcNG0lwNRz eMNjUCYew77zZTBlWC BoYXZlIHBlcnNvbmFs bHkgaXNzdWVkIHRoaX YbpxSek9H5InNnlJEb fQ== [place] [address] gumz2120-38-45 11:34:01* Test Item Value Reference Range Interpretation Comme nts Ventricular Rate (test code = 6995514851) BPM Atrial Rate (test code = 4074178752) BPM DC Interval (test code = 9160935275) 234 ms QRS Duration (test code = 0508605778) 110 ms QT/QTc (test code = 3947353885) 370 ms QTc Calculation (test code = 7397638701) 460 ms P-[place] (test code = 9113046950) degrees R-[place] (test code = 4739215259) degrees T-[place] (test code = 6508429184) degrees URBAN (test code = URBAN) PXN (test code = PXN) [facility]2024-12-05 11:26:59* Test Item Value Reference Range Interpretation Comme nts POC Glu (test code = 3432789532) 207 mg/dL 70-99 H POC Glu Comment 1 (test code = 4792610422) Notified RN/MD POC Performing Location (nuria t code = 5152761433) 4 [facility] Lab Interpretation (test cod e = 39021-6) Abnormal [facility] Myjqmlr0584-46-51 08:02:15* Test Item Value Reference Range Interpretation Comme nts POC Glu (test code = 3728516953) 115 mg/dL 70-99 H POC Performing Location (nuria t code = 1573424501) HV4 [facility] Lab Interpretation (test cod e = 86420-2) Abnormal [facility]2024-12-04 21:02:16* Test Item Value Reference Range Interpretation Comme nts POC Glu (test code = 4278397357) 149 mg/dL 70-99 H POC Glu Comment 1 (test code = 5974312588) Notified RN/MD POC Performing Location (nuria t code = 6615133958) HV4 [facility] Lab Interpretation (test cod e = 85746-4) Abnormal [facility]2024-12-04 17:29:06* Test Item Value Reference Range Interpretation Comme nts POC Glu (test code = 7819771994) 121 mg/dL 70-99 H POC Performing Location (nuria t code = 5659999774) HV4 [facility] Lab Interpretation (test cod e = 39565-7) Abnormal [place] [address] nwxc6467-38-72 15:25:17* Test Item Value Reference Range Interpretation Comme nts Ventricular Rate (test code = 9573505831) BPM Atrial Rate (test code = 0057706868) BPM DC Interval (test code = 3784218074) 224 ms QRS Duration (test code = 2934421921) 110 ms QT/QTc (test code = 1475490809) 392 ms QTc Calculation (test code = 6281268746) 484 ms P-[place] (test code = 0989203470) degrees R-[place] (test code = 9335861792) degrees T-[place] (test code = 5236132238) degrees URBAN (test code = URBAN) PXN (test code = PXN) [facility] Gbunjmr3339-65-97 12:13:48* Test Item Value Reference Range Interpretation Comme nts POC Glu (test code = 2900102466) 170 mg/dL 70-99 H POC Performing Location (nuria t code = 5826287648) 4 [facility] Lab Interpretation (test cod e = 83365-3) Abnormal [facility] Mxnmvvq5492-91-98 07:12:53* Test Item Value Reference Range Interpretation Comme nts POC Glu (test code = 9090700323) 126 mg/dL 70-99 H POC Performing Location (nuria t code = 9106886087) 4 [facility] Lab Interpretation (test cod e = 88417-2) Abnormal [facility]2024-12-03 20:40:53* Test Item Value Reference Range Interpretation Comme nts POC Glu (test code = 0958363951) 116 mg/dL 70-99 H POC Glu Comment 1 (test code = 8559271950) Notified RN/MD POC Performing Location (nuria t code = 0967353112) HV4 [facility]U Lab Interpretation (test cod e = 72646-0) Abnormal [facility] Dzencei0836-48-43 16:40:41* Test Item Value Reference Range Interpretation Comme nts POC Glu (test code = 8695888129) 104 mg/dL 70-99 H POC Performing Location (nuria t code = 5183509732) 4 CCU Lab Interpretation (test cod e = 80794-5) Abnormal [facility] Dvfewev9094-19-35 01:36:47* Test Item Value Reference Range Interpretation Comme nts POC Glu (test code = 7803605974) 108 mg/dL 70-99 H POC Performing Location (nuria t code = 3190096967) HV4 [facility]U Lab Interpretation (test cod e = 02170-6) [facility] dusekbdc3813-22-96 16:45:36* Test Item Value Reference Range Interpretation Comme nts BSA (test code = 4445841884) 2.26 m2 Radiology Study observation (narrative) (test code = 72833-8) URBAN (test code = URBAN) [facility] 1 Yxzkc3248-31-37 08:54:03* Test Item Value Reference Range Interpretation Comme nts Product Code (test code = 25) [id number] Unit Number (test code = 1624) [id number] Unit ABO (test code = 5446440) O Unit RH (test code = 9200976) POS Crossmatch (test code = 9386352) Compatible Dispense Status (test code = 1623) Transfused Blood Expiration Date (test code = 530) Product Blood Type (test cod e = 532) Unit Volume (test code = 1322-7) 350 mL [facility] Aliazfn8535-98-00 06:33:54* Test Item Value Reference Range Interpretation Comme nts POC Glu (test code = 6036850576) 119 mg/dL 70-99 H POC Performing Location (nuria t code = 5629347588) HV4 [facility] Lab Interpretation (test cod e = 04208-0) Abnormal [facility] Omcsrfq5688-33-87 19:13:26* Test Item Value Reference Range Interpretation Comme nts POC Glu (test code = 8652178581) 123 mg/dL 70-99 H POC Glu Comment 1 (test code = 9739191785) Notified RN/MD POC Performing Location (nuria t code = 4238506463) HV8 CVICU Lab Interpretation (test cod e = 94034-0) Abnormal [facility] Bgjjfkm7398-40-76 12:32:27* Test Item Value Reference Range Interpretation Comme nts POC Glu (test code = 5988352581) 159 mg/dL 70-99 H POC Performing Location (nuria t code = 7626125877) C3 MED Lab Interpretation (test cod e = 79337-0) Abnormal [facility] Arterial Blood Gas and Basic Uyrtr4848-42-79 11:41:24* Test Item Value Reference Range Interpretation Comme nts POC A Temp (test code = 7735458701) DegC POC A Source (test code = 0249436217) ART POC A pH (test code = 2744-1) 7.35-7.45 POC A PCO2 (test code = 2019-8) See_Comment LL [Automated messa ge] The system which generated this result transmitted reference range: 35 - 45 mmHg. The reference range was not used to interpret this result as normal/abnormal. POC A PO2 (test code = 2703-7) See_Comment [Automated messa ge] The system which generated this result transmitted reference range: 80 - 100 mmHg. The reference range was not used to interpret this result as normal/abnormal. POC A HCO3 (test code = 1960-4) See_Comment L [Automated messa ge] The system which generated this result transmitted reference range: 22 - 26 mMol/L. The reference range was not used to interpret this result as normal/abnormal. POC A BE (test code = 1925-7) See_Comment L [Automated messa ge] The system which generated this result transmitted reference range: -2 - 2 mMol/L. The reference range was not used to interpret this result as normal/abnormal. POC A O2 Sat (calc) (test code = 2708-6) 97.4 % 95-100 POC A Hgb Tot (test code = 64990-5) 9.1 g/dL 13.7-17.5 L POC A Hct (calc) (test code = 22797-5) 27 % 40.1-51.0 L POC A Na (test code = 90652-0) See_Comment [Automated messa ge] The system which generated this result transmitted reference range: 135 - 145 mEq/L. The reference range was not used to interpret this result as normal/abnormal. POC A K (test code = 5070655) See_Comment [Automated messa ge] The system which generated this result transmitted reference range: 3.5 - 5.1 mEq/L. The reference range was not used to interpret this result as normal/abnormal. POC Chloride (test code = 6651668) See_Comment H [Automated [facility] [employer]] The system which generated this result transmitted reference range: 95 - 109 mEq/L. The reference range was not used to interpret this result as normal/abnormal. POC A Glu (test code = 2339-0) 215 mg/dL 70-99 H POC A LA (test code = 224) See_Comment [Automated [facility] [employer]] The system which generated this result transmitted reference range: 0.5 - 2.2 mMol/L. The reference range was not used to interpret this result as normal/abnormal. POC A Ca Ion (test code = 91265-1) See_Comment [Automated [facility] [employer]] The system which generated this result transmitted reference range: 1.05 - 1.25 mMol/L. The reference range was not used to interpret this result as normal/abnormal. POC A Ca Ion (7.4) (test code = 9281377786) 1.15 mmol/L 1.05-1.25 POC A %FIO2 (test code = 0022617270) 28 % POC Performing Location (test code = 6149284848) HH BG CLIN Lab Interpretation (test code = 95954-6) Abnormal [facility] RBC: 2 [id number] 21:20:38* Test Item Value Reference Range Interpretation Comme nts Product Code (test code = 25) [id number] Unit Number (test code = 1624) [id number] Unit ABO (test code = 3141360) O Unit RH (test code = 4741089) POS Crossmatch (test code = 4951491) Compatible Dispense Status (test code = 1623) Transfused Blood Expiration Date (test code = 530) Product Blood Type (test cod e = 532) Unit Volume (test code = 1322-7) 350 mL [facility] Zvrgxaz7647-46-13 20:52:20* Test Item Value Reference Range Interpretation Comme nts POC Glu (test code = 3103853933) 174 mg/dL 70-99 H POC Performing Location (nuria t code = 7580080159) C3 MED Lab Interpretation (test cod e = 04687-9) Abnormal [facility] Eztgutg0328-66-57 18:53:12* Test Item Value Reference Range Interpretation Comme [facility] POC Glu (test code = 7678749142) 166 mg/dL 70-99 H POC Glu Comment 1 (test code = 0933447216) Notified RN/MD POC Performing Location (nuria t code = 0701681817) C3 MED Lab Interpretation (test cod e = 75227-9) Abnormal [facility] Bmwednp2608-43-40 09:04:10* Test Item Value Reference Range Interpretation Comme [facility] POC Glu (test code = 1211876900) 139 mg/dL 70-99 H POC Glu Comment 1 (test code = 9696095424) Notified RN/MD POC Performing Location (nuria t code = 3337456022) C3 MED Lab Interpretation (test cod e = 39177-8) Abnormal [facility] 12 chtx4625-50-84 16:23:29Sinus Bradycardia -First degree A-V block Chrissy = 284-Prominent R(V1) -nonspecific.-Diffuse nonspecific T- abnormality.Low voltage -possible pulmonary disease. [facility] apzx5227-00-91 18:24:30Atrial fibrillation -occasional ectopic ventricular beat ?-Nonspecific T-abnormality. ABNORMALMN [facility]MER[facility] 12 qgie6467-76-86 17:56:59 Atrial fibrillation Low voltage in limb leads.-Nonspecific T-abnormality. ABNORMALUT HealthCBC and lyrvbkufacyk8897-34-72 04:53:00* Test Item Value Reference Range Interpretation Comme [facility] WHITE BLOOD CELL COUNT (test code = 6690-2) 12.7 3.8-10.8 H RED BLOOD CELL COUNT (test code = 789-8) 4.70 4.20-5.80 HEMOGLOBIN (test code = 718-7) 15.2 g/dL 13.2-17.1 HEMATOCRIT (test code = 4544-3) 45.7 % 38.5-50.0 MCV (test code = 787-2) 97.2 fL 80.0-100.0 MCH (test code = 785-6) 32.3 pg 27.0-33.0 MCHC (test code = 786-4) 33.3 g/dL 32.0-36.0 RDW (test code = 788-0) 13.1 % 11.0-15.0 PLATELET COUNT (test code = 777-3) 221 140-400 MPV (test code = 776-5) 10.4 fL 7.5-12.5 ABSOLUTE NEUTROPHILS (test code = 751-8) 9373 5924-0963 H ABSOLUTE LYMPHOCYTES (test code = 731-0) 2019 850-3900 ABSOLUTE MONOCYTES (test code = 742-7) 686 200-950 ABSOLUTE EOSINOPHILS (test code = 711-2) 546 15-500 H ABSOLUTE BASOPHILS (test code = 704-7) 76 0-200 NEUTROPHILS (test code = 770-8) 73.8 % LYMPHOCYTES (test code = 736-9) 15.9 % MONOCYTES (test code = 5905-5) 5.4 % EOSINOPHILS (test code = 713-8) 4.3 % BASOPHILS (test code = 706-2) 0.6 % REPORT COMMENT:PATIEN T UNABLE TO VOID; ADVISED TO RETURN FOR COLLECTION. RAC (test code = RAC) Performing Organization Information: ? ?Site ID: RGA ? ?Name: [employer] [place] ? ?Address: [address] [place], [place] [address] ? ?Director: CECILIO OLSON MD,PHD. Lab Interpretation (test code = 24548-9) [facility]normal [facility] pqhsv6578-89-61 04:53:00* Test Item Value Reference Range Interpretation [...] mg/dL 0.70-1.28 H EGFR (test code = 352547667) 31 See_Comment L [Automated message] The system which generated this result transmitted reference range: > OR = 60 mL/min/1.73m2. The reference range was not used to interpret this result as normal/abnormal. BUN/CREATININE RATIO (test code = 3097-3) 14 6-22 SODIUM (test code = 2951-2) 138 mmol/L 135-146 POTASSIUM (test code = 2823-3) 4.5 mmol/L 3.5-5.3 CHLORIDE (test code = 2074-0) 107 mmol/L 98-110 CARBON DIOXIDE (test code = 2027-9) 23 mmol/L 20-32 CALCIUM (test code = 95896-5) 9.3 mg/dL 8.6-10.3 PROTEIN, TOTAL (test code = 2885-2) 6.9 g/dL 6.1-8.1 ALBUMIN (test code = 1751-7) 4.2 g/dL 3.6-5.1 GLOBULIN (test code = 72715-3) 2.7 1.9-3.7 ALBUMIN/GLOBULIN RATIO (test code = 1759-0) 1.6 1.0-2.5 BILIRUBIN, TOTAL (test code = 1974-2) 0.9 mg/dL 0.2-1.2 ALKALINE PHOSPHATASE (test code = 6768-6) 104 U/L 35-144 AST (test code = 1920-8) 13 U/L 10-35 ALT (test code = 1742-6) 13 U/L 9-46 RAC (test code = RAC) Performing Organization Information: ? ?Site ID: RGA ? ?Name: [employer] [place] ? ?Address: [address] [place] [address] ? ?Director: CECILIO OLSON MD,PHD. Lab Interpretation (test code = 06333-9) Abnormal [facility] 12 [id number] 18:17:10* Test Item Value Reference Range Interpretation Comme [facility] URBAN (test code = URBAN) Atrial fibrillatio n -frequent ectopic ventricular beats # VECs = 2Low voltage in limb leads.-Nonspecific T-abnormality. ABNORMAL Lab Interpretation (test code = 14045-2) Abnormal [facility] 12 tnmp7976-23-67 21:01:41Atrial fibrillation -Nonspecific T- abnormality.Low voltage -possible pulmonary disease. ABNORMALUT HealthCHEM PANEL 2016-10-13 10:11:00* Test Item Value Reference Range Interpretation Comme nts Glucose Lvl (test code = Glucose Lvl) 86 70-[address] [facility] HospitalSapqywvURGDRMHRSH8434-21-51 10:11:00* Test Item Value Reference Range Interpretation Comme nts MCH (test code = MCH) 31.5 pg 27.0-31.0 [facility] CenterInbenta [id number] 10:27:00* Test Item Value Reference Range Interpretation Comme nts eGFR (test code = eGFR) 37 [facility] CenterNvsllcbVDXSYTWNFT1271-60-06 10:27:00* Test Item Value Reference Range Interpretation Comme nts Eosinophils (test code = Eosinophils) 4.5 See_Comment [Automated messa ge] The system which generated this result transmitted reference range: <=4.0. The reference range was not used to interpret this result as normal/abnormal. [facility] CenterTvnchzxBVKNMOKYOLLP2044-43-10 09:07:00* Test Item Value Reference Range Interpretation Comme nts Potassium Lvl (test code = P otassium Lvl) 3.9 3.5-5.1 [facility] CenterQyjobhhYWPCTGHSLC1278-38-38 09:07:00* Test Item Value Reference Range Interpretation Comme nts Hgb (test code = Hgb) 11.3 14.0-18.0 [facility] CenterInbenta REYFY0993-50-72 09:33:00* Test Item Value Reference Range Interpretation Comme nts Phosphorus (test code = Phosphorus) 3.5 2.5-4.5 [facility] CenterDemandPointOOD BANK PLWVINW8767-38-97 05:59:00* Test Item Value Reference Range Interpretation Comme nts Antibody Scrn (test code = Antibody Scrn) Negative (10/09/16 12:59 AM) [facility] CenterDATANG MOBILE COMMUNICATIONS EQUIPMENTCARXM RadioAC AEBVQOT8561-84-69 05:59:00* Test Item Value Reference Range Interpretation Comme nts Troponin-I (test code = Troponin-I) 0.02 See_Comment [Automated messa ge] The system which generated this result transmitted reference range: <=0.40. The reference range was not used to interpret this result as normal/abnormal. [facility] Buck WRVPV1868-00-89 05:59:00* Test Item Value Reference Range Interpretation Comme nts Magnesium Lvl (test code = M agnesium Lvl) 2.5 1.8-2.4 [facility] CenterannCARXM RadioAC OZODKKA6788-48-38 02:41:00* Test Item Value Reference Range Interpretation Comme nts Troponin-I (test code = Troponin-I) 0.02 See_Comment [Automated messa ge] The system which generated this result transmitted reference range: <=0.40. The reference range was not used to interpret this result as normal/abnormal. [facility] YJRXSBU5996-16-96 22:24:00* Test Item Value Reference Range Interpretation Comme nts Ca Norm WB (test code = Ca Norm WB) 1.05 1.05-1.25 [facility]annCHE[facility] [id number] 07:59:00* Test Item Value Reference Range Interpretation Comme nts Phosphorus (test code = Phosphorus) 3.2 2.5-4.5 [facility]annPARATHYROID DWRDDVM0209-57-15 06:42:00* Test Item Value Reference Range Interpretation Comme nts Ca Norm WB (test code = Ca Norm WB) 1.14 1.05-1.25 [facility]annCARDIAC BKYRRBU2078-46-17 20:35:00* Test Item Value Reference Range Interpretation Comme nts Troponin-I (test code = Troponin-I) 0.05 See_Comment [Automated [facility]] The system which generated this result transmitted reference range: <=0.40. The reference range was not used to interpret this result as normal/abnormal. [facility]annCARDIAC [id number] 13:19:00* Test Item Value Reference Range Interpretation Comme nts BNP (test code = BNP) 569 [facility] LXSNannCHEM DTWTA5129-06-03 13:19:00* Test Item Value Reference Range Interpretation Comme nts Albumin Lvl (test code = Albumin Lvl) 3.8 3.5-5.0 [facility] HysyiidVQEAESFHAM9051-16-41 13:19:00* Test Item Value Reference Range Interpretation Comme nts PTT (test code = PTT) 33.9 s 22.9-35.8 [facility]annCARDIAC LMTRYRP5441-59-12 00:34:13* Test Item Value Reference Range Interpretation Comme nts BNP (test code = BNP) 533 [facility] LXSNannCHEM ZPKJY4581-15-45 20:40:00* Test Item Value Reference Range Interpretation Comme nts Calcium Lvl (test code = Calcium Lvl) 8.3 8.5-10.5 [facility] CenterQrrrkraLFYVIIVNSEOF9880-41-75 22:52:00* Test Item Value Reference Range Interpretation Comme nts AGAP (test code = AGAP) 11.1 10.0-20.0 [facility] XrbvxitZNLBESXHOO6890-91-89 22:52:00* Test Item Value Reference Range Interpretation Comme nts Basophils (test code = Basophils) 1.0 See_Comment [Automated messa ge] The system which generated this result transmitted reference range: <=1.0. The reference range was not used to interpret this result as normal/abnormal. [facility] CenterDATANG MOBILE COMMUNICATIONS EQUIPMENTBACTERIAL - [id number] 21:19:00* Test Item Value Reference Range Interpretation Comme nts MRSA by PCR (test code = MRSA by PCR) Negative (01/24/16 4:19 PM) [facility] [employer] CASDHVU6984-99-13 16:02:00* Test Item Value Reference Range Interpretation Comme nts RBC product (test code = RBC product) Product available 1(01/24/16 11:02 AM) [facility] CenterFrqtufeKPNQKAOHZNBN2248-72-87 12:19:00* Test Item Value Reference Range Interpretation Comme nts Potassium Lvl (test code = P otassium Lvl) 3.0 3.5-5.1 [facility] CefqpynOCTQGELCOZ2271-53-77 12:19:00* Test Item Value Reference Range Interpretation Comme nts INR (test code = INR) 1.28 0.85-1.17 [facility] [employer] DTETTLC5554-07-61 17:50:00* Test Item Value Reference Range Interpretation Comme nts Antibody Scrn (test code = Antibody Scrn) Negative (01/17/16 12:50 PM) [facility] VjypebxGEAGGVVZMCCC4423-38-65 17:50:00* Test Item Value Reference Range Interpretation Comme nts AGAP (test code = AGAP) 10.2 10.0-20.0 [facility] IazzdyrTTGWARQNFK8536-38-75 17:50:00* Test Item Value Reference Range Interpretation Comme nts PTT (test code = PTT) 50.2 s 22.9-35.8 [facility] PelikonCHEM MZCCK2253-75-90 07:45:00* Test Item Value Reference Range Interpretation Comme nts Phosphorus (test code = Phosphorus) 3.7 2.5-4.5 [facility] GavfnuwYJFDOSDCWWJL5354-79-97 07:45:00* Test Item Value Reference Range Interpretation Comme nts AGAP (test code = AGAP) 12.2 10.0-20.0 [facility] CenterNckwcwlETFOCUHYCW8344-40-74 07:45:00* Test Item Value Reference Range Interpretation Comme nts PTT (test code = PTT) 33.2 s 22.9-35.8 [facility] CenterannPARATHYROID FFPFODS7052-99-55 07:45:00* Test Item Value Reference Range Interpretation Comme nts Ca Ion WB (test code = Ca Ion WB) 1.14 1.05-1.25 [facility] CenterannURINE [id number] 15:28:00* Test Item Value Reference Range Interpretation Comme nts U Eos (test code = U Eos) None Seen (11/13/15 10:28 AM) [facility] CenterViewbix BANK MRFFMWM8307-98-24 09:56:00* Test Item Value Reference Range Interpretation Comme nts Antibody Scrn (test code = Antibody Scrn) Negative (11/13/15 4:56 AM) [facility] CenterDATANG MOBILE COMMUNICATIONS EQUIPMENTCHEM [id number] 09:56:00* Test Item Value Reference Range Interpretation Comme nts Magnesium Lvl (test code = M agnesium Lvl) 2.3 1.8-2.4 [facility] LvaqyrlNGCECCIFGQWC8637-69-56 09:56:00* Test Item Value Reference Range Interpretation Comme nts AGAP (test code = AGAP) 14.1 10.0-20.0 [facility] VmlpuvjQUGCXPWKZW2638-11-33 09:56:00* Test Item Value Reference Range Interpretation Comme nts Segs-Bands # (test code = Segs-Bands #) 7.2 1.5-8.1 [facility] CenterannPARATHYROID ITZPBBD9112-59-25 09:56:00* Test Item Value Reference Range Interpretation Comme nts Ca Ion WB (test code = Ca Ion WB) 1.06 1.05-1.25 [facility] CenterURINE [id number] 21:39:00* Test Item Value Reference Range Interpretation Comme nts U Chloride (test code = U Chloride) 87 [facility] CenterannMOLECULAR BXFECYMZEL0640-55-91 19:52:00* Test Item Value Reference Range Interpretation Comme nts C difficile DNA (test code = C difficile DNA) Negative (11/12/15 2:52 PM) [facility] CenterDATANG MOBILE COMMUNICATIONS EQUIPMENTCHEM [id number] 07:59:00* Test Item Value Reference Range Interpretation Comme nts eGFR (test code = eGFR) 25 [facility] CenterQtzduujOLJBYBQACG5617-78-73 07:59:00* Test Item Value Reference Range Interpretation Comme nts PTT (test code = PTT) 32.6 s 22.9-35.8 [facility] CenterannPARATHYROID DZSGUCG7568-08-85 07:59:00* Test Item Value Reference Range Interpretation Comme nts Ca Norm WB (test code = Ca Norm WB) 1.08 1.05-1.25 [facility] CenterannCARDIAC TMSHUBM2572-56-90 07:23:00* Test Item Value Reference Range Interpretation Comme nts Total CK (test code = Total CK) 63 12-191 [facility] CenterUbtvdwsRDGMTQLKI7344-54-43 07:23:00* Test Item Value Reference Range Interpretation Comme nts Myoglobin (test code = Myoglobin) 122 25-72 [facility] CenterannCARDIAC DJAQGIM2388-26-91 06:46:00* Test Item Value Reference Range Interpretation Comme nts CK MB (test code = CK MB) 7.2 0.5-3.6 [facility] CenterannCARDIAC KBIJCQS9408-98-12 23:07:00* Test Item Value Reference Range Interpretation Comme nts CK MB Index (test code = CK MB Index) 8.7 See_Comment [Automated m essage] The system which generated this result transmitted reference range: <=2.5. The reference range was not used to interpret this result as normal/abnormal. [facility] CenterKatyfabUWSSNVTFA8585-90-37 23:07:00* Test Item Value Reference Range Interpretation Comme nts Myoglobin (test code = Myoglobin) 139 25-72 [facility] CenterannCARDIAC NCCSWRV8288-18-51 18:02:00* Test Item Value Reference Range Interpretation Comme nts CK MB (test code = CK MB) 10.0 0.5-3.6 [facility] XmuapxsBBPNLWFMU6245-52-69 18:02:00* Test Item Value Reference Range Interpretation Comme nts Myoglobin (test code = Myoglobin) 190 25-72 [facility] CenterViewbix BANK HVGSVXR4593-90-23 07:01:00* Test Item Value Reference Range Interpretation Comme nts Antibody Scrn (test code = Antibody Scrn) Negative (11/09/15 2:01 AM) [facility] CenterannCHEM [id number] 07:34:00* Test Item Value Reference Range Interpretation Comme nts Globulin (test code = Globulin) 3.6 2.0-4.0 [facility] QjlsemzYDASSZUCTN3332-12-06 07:34:00* Test Item Value Reference Range Interpretation Comme nts Vanco Lvl (test code = Vanco Lvl) 22.3 [facility]annCHEM KEXHN0406-45-79 09:02:00* Test Item Value Reference Range Interpretation Comme nts Alk Phos (test code = Alk Phos) 73 39-136 [facility] CenterTwpfwvcEOQNQPTZZT7576-68-93 09:02:00* Test Item Value Reference Range Interpretation Comme nts Vanco Lvl (test code = Vanco Lvl) 7.7 [facility] CenterUR[facility] RQGU2960-54-10 17:16:00* Test Item Value Reference Range Interpretation Comme nts U Protein (test code = U Protein) 35.8 [facility] CenterannURINE AND CKQFE5167-48-63 10:36:00* Test Item Value Reference Range Interpretation Comme nts UA WBC (test code = UA WBC) no gt See_Comment [Automated [facility]] The system which generated this result transmitted reference range: <=5. The reference range was not used to interpret this result as normal/abnormal. [facility] CenterRyhvvwhLJRQJG5580-77-07 10:23:00* Test Item Value Reference Range Interpretation Comme nts HDL (test code = HDL) 32 [facility] CenterannBACTERIAL - RQIVZJON4419-96-48 07:36:00* Test Item Value Reference Range Interpretation Comme nts MRSA by PCR (test code = MRSA by PCR) Negative (11/06/15 2:36 AM) [facility] CenterBLO[facility] B[facility] AVMFNDW6750-40-38 07:36:00* Test Item Value Reference Range Interpretation Comme nts ABO/Rh (test code = ABO/Rh) O POS [facility] CenterannCHEM [id number] 07:36:00* Test Item Value Reference Range Interpretation Comme nts Lactic Acid Lvl (test code = Lactic Acid Lvl) 1.1 0.5-2.2 [facility] CenterannSPECIAL ZKPQIHHFC7224-37-81 07:36:00* Test Item Value Reference Range Interpretation Comme nts Hgb A1C (test code = Hgb A1C) 5.8 [facility] CenterNhylezsOSBUBUAFNSSU9742-41-40 16:15:00* Test Item Value Reference Range Interpretation Comme nts AGAP (test code = AGAP) 11.7 10.0-20.0 [facility] CenterInvncdkIVWDUKDSDN0530-97-53 16:15:00* Test Item Value Reference Range Interpretation Comme nts Monocytes # (test code = Monocytes #) 0.6 See_Comment [Automated messa ge] The system which generated this result transmitted reference range: <=0.8. The reference range was not used to interpret this result as normal/abnormal. [facility] CenterXageywgPWZAPXTJAN9320-34-57 10:52:00* Test Item Value Reference Range Interpretation Comme nts INR (test code = INR) 1.15 0.85-1.17 [facility] CenterannCHEM MEHNP7935-24-66 08:01:00* Test Item Value Reference Range Interpretation Comme nts Creatinine Lvl (test code = Creatinine Lvl) 1.09 0.50-1.40 [facility] CenterYogylomSULXVJGYUH1989-60-66 08:01:00* Test Item Value Reference Range Interpretation Comme nts Hct (test code = Hct) 39.9 42.0-54.0 [facility] CenterZjbungrACTKLD4468-22-44 08:01:00* Test Item Value Reference Range Interpretation Comme nts VLDL (test code = VLDL) 35 [facility] CenterSPECIAL LDMFYIXCP4157-76-54 08:01:00* Test Item Value Reference Range Interpretation Comme nts Hgb A1C (test code = Hgb A1C) 6.9 [facility] CenterannURINE AND MQTQF0248-36-30 08:01:00* Test Item Value Reference Range Interpretation Comme nts UA Urobilinogen (test code = UA Urobilinogen) <=1.0 mg/dL 0.1-1.0 [facility] CenterannDRUG QPKHTE6920-63-05 04:52:00* Test Item Value Reference Range Interpretation Comme nts U Cannab Scr (test code = U Cannab Scr) Negative *NA*(06/09/15 10:52 PM) [facility] HermannURINE AND ZJDLW0554-35-64 01:49:00* Test Item Value Reference Range Interpretation Comme nts UA Bacteria (test code = UA Bacteria) Rare [facility] CenterannCARDIAC KYEARRK7255-09-67 00:33:00* Test Item Value Reference Range Interpretation Comme nts Troponin-I (test code = Troponin-I) no gt See_Comment [Automated messa ge] The system which generated this result transmitted reference range: <=0.40. The reference range was not used to interpret this result as normal/abnormal. [facility] CenterCHEM RSSMD9816-67-96 00:33:00* Test Item Value Reference Range Interpretation Comme nts Bili Indirect (test code = Bili Indirect) 0.4 See_Comment [Automated message] The system which generated this result transmitted reference range: <=1.0. The reference range was not used to interpret this result as normal/abnormal. [facility] CenterFbanktsUZTYMLKZXU9970-95-21 00:33:00* Test Item Value Reference Range Interpretation Comme nts PTT (test code = PTT) 26.6 s 22.9-35.8 [facility] CenterNosuqclEOJVQB3904-88-29 00:33:00* Test Item Value Reference Range Interpretation Comme nts LDL (Calculated) (test code = LDL (Calculated)) 16 [facility] GLUCOSE GGSFZYI2019-99-77 17:42:00* Test Item Value Reference Range Interpretation Comme nts Gluc POC Lifscn (test code = Gluc POC Lifscn) 215 70-99 H [facility] GLUCOSE JXAMKTS5219-15-81 11:33:00* Test Item Value Reference Range Interpretation Comme nts Gluc POC Lifscn (test code = Gluc POC Lifscn) 148 70-99 [facility]OaombnbDKIQIFSVN6982-09-43 08:05:00* Test Item Value Reference Range Interpretation Comme nts Troponin-I (test code = Troponin-I) no gt See_Comment N [Automated messa ge] The system which generated this result transmitted reference range: <=0.40. The reference range was not used to interpret this result as normal/abnormal. [facility] HospitalTovfulmHTBZKUXUY1124-25-63 01:52:00* Test Item Value Reference Range Interpretation Comme nts CK MB (test code = CK MB) 1.7 0.5-3.6 N [facility] GLUCOSE FHRVXQZ2052-56-52 00:07:00* Test Item Value Reference Range Interpretation Comme nts Gluc POC Lifscn (test code = Gluc POC Lifscn) 105 70-99 H [facility] CenterQlojyfwLQQANQGJG5007-22-65 16:16:00* Test Item Value Reference Range Interpretation Comme nts Magnesium Lvl (test code = M agnesium Lvl) 1.5 1.8-2.4 L [facility] [id number] 16:16:00* Test Item Value Reference Range Interpretation Comme nts Monocytes # (test code = Monocytes #) 0.5 See_Comment N [Automated messa ge] The system which generated this result transmitted reference range: <=0.8. The reference range was not used to interpret this result as normal/abnormal. [id number] 16:16:00* Test Item Value Reference Range Interpretation Comme nts CDC-HIV 1/2 Ab (test code = CDC-HIV 1/2 Ab) Negative *NA*(01/14/2012 11:16:00) [facility] Consult Notes Date/Time Note Provider Source 2024-05-20 10:26:32 Associated Order(s): IP SCREENING REFERRAL TO NUTRITION SERVICES NUTRITION ASSESSMENT - ADULT Screening Reason : Eaten less than half of meals for >3 days Visit Information: (05/20/24) -- Pt is 74 y/o M admitted for acute hypoxic respiratory failure w/ hx including DM, CKD4. Ht 70", current wt 220 lbs. Per EMR, pt weight fluctuates 220-230s lbs. Currently on Heart Healthy diet. Pt eating 100% of meals per documentation. ONS ordered daily. No N/V/C/D. Pending placement. Will continue to follow. Malnutrition Diagnosis: Malnutrition Diagnosis: (Pt does not meet criteria at this time) Recommendations & Plan: Continue current nutrition plan Current Nutrition Orders: Current Diet: Heart Healthy Supplements: Boost Glucose 1x daily PO Intake: 100% Communication : Rounded with multidisciplinary team Anthropometrics: Height: 177.8 cm (5' 10") Height Method: Stated Weight: 99.8 kg (220 lb) Body mass index is 31.57 kg/m?. [place] body weight: 73 kg (160 lb 15 oz) Adjusted ideal body weight: 83.7 kg (184 lb 9 oz) Estimated Nutrition Needs: Weight Used for Equation Calculations: 75 kg (165 lb 5.5 oz) (IBW) Calculated Energy Needs Using Equations Height: 1.778 m (5' 10") Weight Used for Equation Calculations: 75 kg (165 lb 5.5 oz) (IBW) Energy Equation Used: Rule of thumb (kcal/kg) Energy Lower Range: 25 (kcal/kg) Energy Upper Range: 30 (kcal/day) Energy Needs Lower Range: 1875 kcal/day (kcal/day) Energy Needs Upper Range: 2250 kcal/day Temp: 37.2 ?C (99 ?F) Estimated Protein Needs (g/kg) Protein Lower Range: 1.2 (g/kg) Protein Upper Range: 1.5 (g/day) Protein Lower Range: 90 g/day (g/day) Protein Upper Range: 112 g/day Fluid Needs Fluid Needs Method: Or per MD; mL/kg/day (mL/kg) Fluid Needs: 25 (mL/day) Fluid Needs (Calculated): 1875 mL/day Nutrition Physical Findings per technician semiconductor development: O2 Delivery Method: Nasal cannula Gastrointestinal (WDL): WDL Last BM Date: 05/14/24 LUE: Full movement RUE: Full movement LLE: Limited movement; Weakness RLE: Limited movement; Weakness Edema: Right lower extremity; Left lower extremity Generalized Edema: Non-pitting LUE Edema: Non-pitting RUE Edema: Non-pitting LLE Edema: +2 RLE Edema: +2 Skin: no pressure injuries documented Nutrition Focused Physical Exam - Muscles and Fat: Assessment of Muscle Status Date Assessed: 05/20/24 Muscle Status: No deficits noted Assessment of Fat Status Date Assessed: 05/20/24 Fat Status: No deficits noted Basic Information: Admitting diagnosis: Bilateral pleural effusion [J90] Elevated brain natriuretic peptide (BNP) level [R79.89] Acute respiratory failure with hypoxia (CMS/HCC) (HCC) [J96.01] Acute hypoxic respiratory failure (HCC) [J96.01] Health Status: No Known Allergies Labs: Reviewed. Meds: Reviewed. Past Medical History: DM, CAD s/p PCI, heart failure with recovered EF, A Fib on Xarelto, JOSH on CPAP, CKD4, chronic anemia Nutrition History: see visit info Nutrition Diagnosis: Nutrition Diagnosis: No nutrition diagnosis at this time Monitoring and Evaluation: MONITORING AND EVALUATION: Weight changes, Skin, Digestive/abdominal assessment, Nutrition Intake : PO intake and tolerance, and Labs: BMP, Phos, Mg, Glycemic Control GOAL: >50-75% PO intake of most meals and supplements: NUTRITION RISK: Low, in 8-10 days ER DOCK Shawanda Young 2024-05-14 16:05:18 Associated Order(s): IP CONSULT TO CARDIOLOGY [facility] Cardiology Initial Consultation Note Referring Physician: Claude Simms MD Outpatient Security Police: Dr. Barrios ([place] @ [facility] [address]) Date of Service: 05/14/24 HPI: Jim Shaw is a 74 y.o. 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 Notably, he was hospitalized for GI bleed about 2 months ago. He was placed on anticoagulation due to his history of paroxysmal atrial fibrillation, but due to his hemoptysis cardiology was asked to see him to comment on possibly stopping anticoagulation. Regarding this patient's atrial fibrillation, he was noted to have it following his TAVR in January 2024. He was successfully cardioverted and discharged on metoprolol succinate and amiodarone. He was supposed to follow-up with Dr. Whaley for further electrophysiology care. Upon encounter, he endorses improving dyspnea. Denies chest pain or palpitations. He is currently in sinus rhythm MH/PSH: Past Medical History: Diagnosis Date Chronic kidney disease COPD (chronic obstructive pulmonary disease) (HCC) Diabetes mellitus (HCC) Hypertension FH: No family history on file. SH: [ Tobacco Use: High Risk (04/25/2024) Patient History Smoking Tobacco Use: Every Day Smokeless Tobacco Use: Unknown Passive Exposure: Not on file ] Allergies:[ No Known Allergies ] Review of Systems Pertinent items are noted in HPI. Objective GEN: No acute distress, cooperative with exam EYES: sclera anicteric, EOMI HEENT: NC/AT, OMM, neck supple PULM: normal effort, diminished bibasilar breath sounds CV: RRR, normal S1&S2, no obvious murmurs/rubs/gallops, no peripheral edema ABD: soft, NT/ND, BS+ MSK: nontender, normal bulk/tone SKIN: normal turgor; grossly intact NEURO: Nonfocal, motor and sensory function grossly intact PSYCH: Normal mood and affect Physical Exam Visit Vitals BP 151/77 Pulse 75 Temp 37.3 ?C (99.1 ?F) Resp 19 Ht 1.778 m (5' 10") Wt 99.8 kg (220 lb) SpO2 94% BMI 31.57 kg/m? Smoking Status Every Day BSA 2.22 m? Cardiographics ECG: Encounter Date: 05/11/24 ECG 12 lead Result Value Ventricular Rate 94 Atrial Rate 73 DC Interval 142 QRS Duration 110 QT/QTc 474 QTc Calculation 592 P-[place] -1 R-[place] 66 T-[place] -4 Impression SINUS RHYTHM WITH PREMATURE SUPRAVENTRICULAR COMPLEX(ES) AND WITH OCCASIONAL and consecutive PREMATURE VENTRICULAR COMPLEX(ES) INFERIOR INFARCTION AGE UNDETERMINED T WAVE ABNORMALITY, CONSIDER LATERAL ISCHEMIA PROLONGED QT INTERVAL OR TU FUSION, CONSIDER MYOCARDIAL DISEASE, ELECTROLYTE IMBALANCE, OR DRUG EFFECTS ABNORMAL ECG WHEN COMPARED WITH ECG OF 05-APR-2024 23:58, PREVIOUS ECG IS PRESENT Echocardiogram: Transthoracic echo (TTE) complete Result Date: 04/04/2024 Left Ventricle: Left ventricle size is normal. Mildly increased wall thickness in the left ventricle. Findings consistent with concentric hypertrophy. Normal wall motion of left ventricle. Normal systolic function with an estimated EF of 55 - 60%. Right Ventricle: Right ventricle size is normal. Normal systolic function in the right ventricle. Left Atrium: Left atrium is moderately dilated. Right Atrium: Right atrium is mildly dilated. Aortic Valve: Bioprosthetic valve present that is well seated. No aortic regurgitation present. No aortic stenosis present. Peak aortic valve velocity is 2.45 m/sec with a mean gradient of 13 mmHg. Mitral Valve: Moderate mitral regurgitation present. Unable to estimate RVSP. Pericardium: No pericardial effusion present. Compared to the study on 01/30/2024, the LV systolic function has improved. Imaging Chest x-ray: pleural effusion: on the right Lab Review Pertinent Labs : Lab Results Component Value Date WBC 7.53 05/15/2024 Hgb 8.0 (L) 05/15/2024 Hct 25.6 (L) 05/15/2024 Plt Count 203 05/15/2024 Lab Results Component Value Date Sodium Lvl 137 05/15/2024 Potassium Lvl 3.0 (LL) 05/15/2024 Chloride Lvl 98 05/15/2024 CO2 Lvl 27.7 05/15/2024 BUN 62 (H) 05/15/2024 Creatinine Lvl 3.35 (H) 05/15/2024 Glucose Lvl 142 (H) 05/15/2024 POC Glu 192 (H) 05/15/2024 Lab Results Component Value Date Calcium Lvl 8.5 05/15/2024 Magnesium 2.03 05/15/2024 Phosphorus Lvl 4.1 05/15/2024 Lab Results Component Value Date AST 17 05/15/2024 ALT 21 05/15/2024 Alkaline Phosphatase 96 05/15/2024 No results found for: "PTT", "PT", "INR" No results found for: "CK", "TROPONINT", "TROPONINI", "BNP" Medications acetylcysteine, 600 mg, Nebulization, 4x daily amiodarone, 100 mg, Oral, Daily Boost Glucose Control, 1 Container, Oral, Daily budesonide, 0.5 mg, Nebulization, BID bumetanide, 2 mg, Intravenous, BID carvedilol, 12.5 mg, Oral, q12h cefepime, 1 g, Intravenous, q24h finasteride, 5 mg, Oral, Daily fluticasone, 2 spray, Each Nostril, BID guaiFENesin, 200 mg, Oral, q6h hydrALAZINE, 100 mg, Oral, q8h FRANCISCO ipratropium-albuterol, 3 mL, Nebulization, 4x daily isosorbide dinitrate, 10 mg, Oral, TID montelukast, 10 mg, Oral, Nightly nicotine, 1 patch, Transdermal, Daily pantoprazole, 40 mg, Oral, Daily before breakfast predniSONE, 40 mg, Oral, Daily rivaroxaban, 15 mg, Oral, Daily with evening meal sodium chloride, 10 mL, Intravenous, q12h FRANCISCO tamsulosin, 0.4 mg, Oral, Daily PRN medications: dextrose, dextrose, glucagon, hydrALAZINE, insulin lispro, ipratropium-albuterol, sodium chloride Assessment & Plan Assessment: Frank Shaw is a 74 y.o. old male who presented with . 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%), CKD 3, HTN, DM, COPD, paroxysmal atrial fibrillation on Xarelto, JOSH, anemia Plan/Recommendations: -Given that atrial fibrillation was paroxysmal post TAVR, and has not had recurrence since his cardioversion back in January 2024, it is reasonable to hold anticoagulation as he is having persistent hemoptysis -Continue other cardioprotective medications -Management of respiratory failure per pulmonology -He has undergone bilateral thoracenteses this admission -He is on IV antibiotics for pneumonia due to positive sputum culture -If his hemoptysis does not resolve with cessation of anticoagulation, and he needs bronchoscopy, he will be at least intermediate risk for procedure given stable but notable cardiac comorbidities and respiratory issues however his LV ejection fraction has recovered after aortic valve replacement which is reassuring and thus no further cardiac workup or testing would be needed. Thank you for allowing me to participate in the care of this patient. Please do not hesitate to contact me with any questions or concerns. Suzanne Cortez MD Interventional Cardiology [facility] Interventional Cardiology Physician [facility] 2024-05-14 15:33:51 Spiritual Care Subjective I attempted to visit the patient, but he was not available as respiratory therapist was working with the patient. ER D[facility] 2024-05-14 12:40:28 Associated Order(s): IP CONSULT TO PULMONOLOGY [facility] Pulmonary Consultation Physician Requesting Consultation: Claude Simms MD Reason for Consult: Hemoptysis History of Present Illness Mr. Shaw is a 74 y.o. male with history of diabetes, hypertension, COPD, atrial fibrillation, JOSH who was admitted 05/11/2024 for respiratory failure. He reports being short of breath at home and using his CPAP continuously as he does not have home oxygen. He was found to be hypoxic requiring high flow oxygen initially, was started on diuretics with improvement in oxygenation. He reports having a cough that is persistent and occasionally with hemoptysis, bright red blood after coughing several times. He notes that the hemoptysis has been present for about 2 weeks. He had a hospitalization for GI bleed about 2 months ago and states that he had a heart valve replacement 2 months prior to that in [facility]. He denies having hemoptysis during those hospitalizations. While here he has had bilateral thoracentesis with 1 L removed from the left chest and 1.3 L removed from the right chest. He feels his breathing is improving although is still requiring nasal cannula. He follows with a mill manager in [place] and uses a Trelegy and albuterol inhaler for COPD. Review of systems Constitutional: no fever or chills ENT: no throat pain or difficulty swallowing Respiratory: Has cough and has had improving shortness of breath Cardiovascular: no chest pain or palpitations GI: no vomiting or diarrhea : no dysuria or hematuria Dermatologic: no rash or itching Endocrine: no heat or cold intolerance Psychiatric: no hallucinations or depression Musculoskeletal: no joint swelling or joint pain Past Medical History Past Medical History: Diagnosis Date Chronic kidney disease COPD (chronic obstructive pulmonary disease) (HCC) Diabetes mellitus (HCC) Hypertension Past Surgical History Past Surgical History: Procedure Laterality Date CORONARY STENT PLACEMENT CT ANGIOGRAM HEART CORONARY 01/28/2024 CT HEART - TAVR 01/28/2024 HVI 4 CARDIAC IMU IR ANGIOGRAM ENDOVASCULAR AORTIC REPAIR IR THORACENTESIS ASPIRATION OF PLEURAL SPACE W GUIDED IMAGING 05/12/2024 IR THORACENTESIS ASPIRATION OF PLEURAL SPACE W GUIDED IMAGING 05/12/2024 PL IR IR THORACENTESIS ASPIRATION OF PLEURAL SPACE W GUIDED IMAGING 05/13/2024 IR THORACENTESIS ASPIRATION OF PLEURAL SPACE W GUIDED IMAGING 05/13/[address] IR Family History He denies family history of lung disease Social History reports that he has been smoking cigarettes. He started smoking about 61 years ago. He has a 61 pack-year smoking history. He does not have any smokeless tobacco history on file. He reports that he does not currently use alcohol. He reports that he does not use drugs. Physical examination Temp: [36.4 ?C (97.6 ?F)-37.3 ?C (99.1 ?F)] 37.3 ?C (99.1 ?F) Heart Rate: [61-86] 66 Resp: [14-28] 16 BP: (131-163)/(57-111) 145/65 FiO2 (%): [24 %-60 %] 60 % General: Lying in bed with head of bed at 30 degrees, in no distress, appears comfortable Eyes: Sclera anicteric, conjunctiva pink ENT: Neck supple, tongue moist, no jugular venous distention, no blood in oropharynx Heart: Regular rate and rhythm, S1 and S2 heard, no murmurs, radial and dorsalis pedis pulses palpable Lungs: Mild rhonchi bilaterally, normal work of breathing Abdomen: Soft, nondistended, bowel sounds normoactive Extremities: No edema in legs, hands are warm but feet are slightly cool Skin: No rashes, no bruises Neurologic: Awake/alert, speech fluent, pupils equally round and reactive to light Imaging/Studies CT chest from May 11 showed bilateral groundglass and there were some consolidative opacities as well more in the left upper lobe centrally located. There were bilateral pleural effusions which are moderate to large in size. There are atelectatic changes in the lower lobes bilaterally. Chest x-ray done yesterday showed small pleural effusions and improved opacities in the lungs bilaterally. All recent laboratory results have been reviewed. Results from last 7 days Lab Units 05/14/24 0400 05/13/24 0851 05/12/24 0335 WBC 10*3/uL 8.04 8.34 10.26* HEMOGLOBIN g/dL 7.7* 9.0* 8.8* HEMATOCRIT % 24.3* 28.7* 28.4* PLATELETS 10*3/uL 185 209 225 Results from last 7 days Lab Units 05/14/24 1128 05/14/24 0848 05/14/24 0400 05/12/24 0334 05/11/24 2232 SODIUM mEq/L -- -- 137 < > -- POTASSIUM mEq/L -- -- 3.2* < > -- CHLORIDE mEq/L -- -- 100 < > -- CO2 mEq/L -- -- 25.7 < > -- BUN mg/dL -- -- 56* < > -- CREATININE mg/dL -- -- 3.65* < > -- CALCIUM mg/dL -- -- 8.5 < > -- PROTEIN TOTAL g/dL -- -- 5.9 < > -- BILIRUBIN TOTAL mg/dL -- -- 0.55 < > -- ALK PHOS U/L -- -- 87 < > -- ALT U/L -- -- 16 < > -- AST U/L -- -- 16 < > -- GLUCOSE mg/dL -- -- 126* < > -- POC GLUCOSE mg/dL 145* < > -- < > -- PROCALCITONIN ng/mL -- -- -- -- 0.13* < > = values in this interval not displayed. Problem List 1. Acute hypoxemic respiratory failure 2. Pneumonia, gram-negative 3. Hemoptysis 4. Tobacco abuse 5. Obstructive sleep apnea 6. COPD 7. 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 Paroxysmal atrial fibrillation Recommendations 1. Discussed with the patient regarding the hemoptysis, this could be related to pneumonia but because of his smoking history he is at risk for malignancy as well. I did not see any obvious mass on the CT but if the hemoptysis does not resolve we discussed potential bronchoscopy if he is still in the hospital next week or else can be done as an outpatient. He will discuss with his outpatient mill manager if he is discharged before then. I discussed with him that this would be important to do endoscopy if the hemoptysis does not resolve because of the risk of malignancy. 2. Discuss smoking cessation with him and he states that he had been using a nicotine patch which has been effective for him 3. I will start him on cefepime for pneumonia, gram-negative rods were seen in the sputum culture and we will follow on the results and adjust antibiotics based on that 4. If the anticoagulation can be held that would be ideal because of the ongoing hemoptysis. He is on anticoagulation for atrial fibrillation and has had GI bleed recently as well. If he is able to have a Watchman procedure this can potentially help reduce his risk of bleeding in the long-term. Thank you for the consultation and we will follow with you; please feel free to call with any questions. Jason Crooks MD #[id number] Pulmonary/Critical Care Medicine [facility] Hoang Young 2024-05-13 13:15:22 Associated Order(s): Inpatient consult to Podiatry Images from the original note were not included. Inpatient consult to Podiatry Performed by: Octavio Horn DPM Authorized by: Claude Simms MD History Of Present Illness Frank Shaw is a 74 y.o. male presenting with PMH significant for DM, CAD s/p PCI, heart failure with recovered EF, A Fib on Xarelto, JOSH on CPAP, CKD4, chronic anemia presented to the hospital with worsening sob requiring CPAP. Patient has necrotic third digit bilateral which started off as patient took off his toenails. Patient is aware he has severe peripheral arterial disease. Has been applying Betadine to the necrotic areas. Past Medical History He has a past medical history of Chronic kidney disease, COPD (chronic obstructive pulmonary disease) (HCC), Diabetes mellitus (HCC), and Hypertension. Surgical History He has a past surgical history that includes CT angiogram heart coronary (01/28/2024); IR angiogram endovascular aortic repair; Coronary stent placement; IR thoracentesis aspiration of pleural space w guided imaging (05/12/2024); and IR thoracentesis aspiration of pleural space w guided imaging (05/13/2024). Social History He reports that he has been smoking cigarettes. He started smoking about 61 years ago. He has a 61 pack-year smoking history. He does not have any smokeless tobacco history on file. He reports that he does not currently use alcohol. He reports that he does not use drugs. Family History No family history on file. Allergies Patient has no known allergies. Medications Medications Prior to Admission Medication Sig Dispense Refill Last Dose/Taking amiodarone (Pacerone) 200 MG tablet Take 100 mg by mouth 1 time each day. bumetanide (Bumex) 1 MG tablet Take 1 tablet by mouth in the morning and 1 tablet in the evening. 60 tablet 11 carvedilol (Coreg) 12.5 MG tablet Take 1 tablet by mouth in the morning and 1 tablet in the evening. 60 tablet 11 cetirizine (ZyrTEC) 10 MG tablet 10 mg = 1 tab, PO, Daily, # 30 tab, 3 Refill(s) diclofenac sodium 1 % gel Apply 2 g topically in the morning and 2 g at noon and 2 g in the evening. 180 g 2 evolocumab (Repatha SureClick) 140 MG/ML injection 140 mg, SUB-Q, Q14D, # 2 ea, 0 Refill(s), Pharmacy: [facility], Meds to bed. HVI2, RM#115, 177.8, cm, 08/18/23 8:54:00 CDT, Height, 107.273, kg, 08/18/23 8:54:00 CDT, Weight finasteride (Proscar) 5 MG tablet 5 mg = 1 tab, PO, Daily, # 90 tab, 1 Refill(s) fluticasone (Flonase) 50 MCG/ACT nasal spray 50 microgram = 1 spray, NASAL, Q4H, PRN Congestion, 0 Refill(s) Nsgajqirssr-Zdfzflflb-Igoq nt 100-62.5-25 MCG/ACT aerosol powder Inhale 1 Inhalation 1 time each day. glimepiride (Amaryl) 1 MG tablet 1 mg = 1 tab, PO, Breakfast, # 30 tab, 0 Refill(s) hydrALAZINE (Apresoline) 100 MG tablet Take 1 tablet by mouth in the morning and 1 tablet at noon and 1 tablet before bedtime. 90 tablet 11 isosorbide dinitrate (Isordil) 10 MG tablet Take 1 tablet by mouth in the morning and 1 tablet at noon and 1 tablet in the evening. 90 tablet 11 lidocaine 4 % patch patch Apply 1 patch over 12 hours topically 1 time each day. 30 patch 2 montelukast (Singulair) 10 MG tablet 10 mg = 1 tab, PO, Bedtime, # 30 tab, 0 Refill(s) nicotine (Nicoderm, Step 1) 21 MG/24HR patch Place 1 patch over 24 hours on the skin 1 time each day for 23 doses. 23 patch 0 [START ON 05/20/2024] nicotine (Nicoderm, Step 2) 14 MG/24HR patch Place 1 patch over 24 hours on the skin 1 time each day for 14 doses. Do not start before May 20, 2024. 14 patch 0 [START ON 06/03/2024] nicotine (Nicoderm, Step 3) 7 MG/24HR patch Place 1 patch over 24 hours on the skin 1 time each day for 14 doses. Do not start before June 03, 2024. 14 patch 0 NIFEdipine CC (Adalat CC) 60 MG 24 hr tablet Take 1 tablet by mouth in the morning and 1 tablet in the evening. Do not crush, chew, or split.. 60 tablet 11 nitroglycerin (Nitrostat) 0.4 MG SL tablet 0.4 mg = 1 tab, SL, Q5Min, PRN chest pain, 0 Refill(s) pantoprazole (ProtoNix) 40 MG EC tablet Take 1 tablet by mouth in the morning. Take before meals. Do not crush, chew, or split. 30 tablet 11 rivaroxaban (Xarelto) 15 MG tablet Take 1 tablet by mouth at bedtime. Take with food. 30 tablet 2 tamsulosin (Flomax) 0.4 MG 24 hr capsule Take 1 capsule by mouth 1 time each day. 30 capsule 2 varenicline (Chantix) 0.5 MG tablet Take 1 tablet by mouth 1 time each day for 3 days, THEN 1 tablet 2 times a day. Take with full glass of water.. 63 tablet 0 Review of Systems Physical Exam: Cardiovascular: Pulses: Dorsalis pedis pulses are 1+ on the right side and 1+ on the left side. Posterior tibial pulses are 1+ on the right side and 1+ on the left side. Musculoskeletal: Feet: Feet: Right foot: Skin integrity: Ulcer, blister, skin breakdown and erythema present. Left foot: Skin integrity: Ulcer, blister, skin breakdown and erythema present. Comments: Bilateral third digit dry necrotic changes Last Recorded Vitals Blood pressure 157/72, pulse 68, temperature 36.4 ?C (97.5 ?F), temperature source Oral, resp. rate 12, height 1.778 m (5' 10"), weight 99.8 kg (220 lb), SpO2 100%. Relevant Results MRI 04/22/24 right foot IMPRESSION: 1. No evidence for acute osteomyelitis of the foot. 2. Diffuse ankle and dorsal midfoot/hindfoot subcutaneous edema. No organized fluid collection. 3. Mild degenerative changes of the second TMT joint. Assessment & Plan Acute hypoxic respiratory failure (HCC) AF (paroxysmal atrial fibrillation) (CMS/HCC) (HCC) JOSH on CPAP Diabetes mellitus type 2, controlled (HCC) S/P TAVR (transcatheter aortic valve replacement) Status post endovascular aneurysm repair (EVAR) Stage 4 chronic kidney disease (CMS/HCC) (HCC) Normocytic anemia Acute on chronic diastolic heart failure (CMS/HCC) (HCC) Patient seen and examined Case discussed with medicine Cardiology will be consulted Will start local wound care: Betadine DSD Bilateral lower extremity arterial dopplers ordered Will follow [facility] 2024-05-12 15:34:43 Associated Order(s): IP CONSULT TO NEPHROLOGY NEPHROLOGY CONSULT Reason For Consult Acute kidney injury History Of Present Illness Frank Shaw 74 y.o. male presenting with shortness of breath. Patient is a 54-year-old chronic kidney disease stage IV, obstructive sleep apnea, coronary artery disease, TAVR, atrial fibrillation, diabetes mellitus, hypertension, admitted with fluid shortness of breath and lower extremity swelling. Labs reviewed. Chest x-ray reviewed. Renal consulted for evaluation of renal failure. Past Medical History Past Medical History: Diagnosis Date Chronic kidney disease COPD (chronic obstructive pulmonary disease) (HCC) Diabetes mellitus (HCC) Hypertension Surgical History Past Surgical History: Procedure Laterality Date CORONARY STENT PLACEMENT CT ANGIOGRAM HEART CORONARY 01/28/2024 CT HEART - TAVR 01/28/2024 HVI 4 CARDIAC IMU IR ANGIOGRAM ENDOVASCULAR AORTIC REPAIR IR THORACENTESIS ASPIRATION OF PLEURAL SPACE W GUIDED IMAGING 05/12/2024 IR THORACENTESIS ASPIRATION OF PLEURAL SPACE W GUIDED IMAGING 05/12/2024 PL IR Social History Social History Socioeconomic History Marital status: Spouse name: Not on file Number of children: Not on file Years of education: Not on file Highest education level: Not on file Occupational History Not on file Tobacco Use Smoking status: Every Day Current packs/day: 1.00 Average packs/day: 1 pack/day for 61.0 years (61.0 ttl pk-yrs) Types: Cigarettes Start date: 1963 Smokeless tobacco: Not on file Substance and Sexual Activity Alcohol use: Not Currently Drug use: Never Sexual activity: Not on file Other Topics Concern Not on file Social History Narrative Not on file Social Drivers of Health Financial Resource Strain: Not on file Food Insecurity: No Food Insecurity (05/12/2024) Hunger Vital Sign Worried About Running Out of Food in the Last Year: Never true Ran Out of Food in the Last Year: Never true Transportation Needs: No Transportation Needs (05/12/2024) PRAPARE - Transportation Lack of Transportation (Medical): No Lack of Transportation (Non-Medical): No Physical Activity: Not on file Stress: Not on file Social Connections: Not on file Intimate Partner Violence: Not At Risk (05/12/2024) Humiliation, Afraid, Rape, and Kick questionnaire Fear of Current or Ex-Partner: No Emotionally Abused: No Physically Abused: No Sexually Abused: No Housing Stability: Low Risk (05/12/2024) Housing Stability Vital Sign Unable to Pay for Housing in the Last Year: No Number of Times Moved in the Last Year: 0 Homeless in the Last Year: No Allergies No Known Allergies Medications amiodarone, 100 mg, Oral, Daily budesonide, 0.5 mg, Nebulization, BID bumetanide, 2 mg, Intravenous, BID carvedilol, 12.5 mg, Oral, q12h guaiFENesin, 200 mg, Oral, q6h nicotine, 1 patch, Transdermal, Daily pantoprazole, 40 mg, Oral, Daily before breakfast predniSONE, 40 mg, Oral, Daily rivaroxaban, 15 mg, Oral, Daily with evening meal sodium chloride, 10 mL, Intravenous, q12h FRANCISCO Review of Systems 10 point review of system performed documented subjective, otherwise negative. Vital signs for last 24 hours: Temp: [36.3 ?C (97.4 ?F)-36.7 ?C (98.1 ?F)] 36.5 ?C (97.7 ?F) Heart Rate: [69-83] 75 Resp: [14-28] 18 BP: (118-165)/(55-92) 157/81 FiO2 (%): [50 %-70 %] 60 % Intake/Output this shift: I/O this shift: In: - Out: 1100 [Drains:1100] Physical Exam Genera: No acute distress. Eye: Pupils are equal, round and reactive to light. Hent: Normocephalic. Respiratory: Lungs are clear to auscultation, respirations are nonlabored. Cardiovascular: Normal rate, regular rhythm. Gastrointestinal: Soft, nontender, nondistended. Genitourinary: No costovertebral angle tenderness. Lymphatics: No lymphadenopathy in neck, axills, groin. Musculoskeletal: Normal range of motion. Edema. Integumentary: Warm, dry. Neurologic: awake. Psychiatric: unable to evaluate. Last Recorded vitals Results from last 7 days Lab Units 05/12/24 03305/12/244 05/11/242047 WBC 10*3/uL 10.26* -- 10.61* HEMOGLOBIN g/dL 8.8* -- 8.8* PLATELETS 10*3/uL 225 -- 229 SODIUM mEq/L -- 142 143 POTASSIUM mEq/L -- 3.4 3.5 CHLORIDE mEq/L -- 106 106 CO2 mEq/L -- 22.2 23.4 BUN mg/dL -- 44* 48* CREATININE mg/dL -- 3.64* 3.83* CALCIUM mg/dL -- 8.7 8.9 Results from last 7 days Lab Units 05/11/242047 AST U/L 16 ALT U/L 13 ALK PHOS U/L 106 BILIRUBIN TOTAL mg/dL 0.85 Imaging Studies XR chest 1 view 05/12/2024 Narrative PROCEDURE INFORMATION: Exam: XR Chest Exam date and time: 05/12/2024 2:15 PM Age: 74 years old Clinical indication: S/P left thoracentesis TECHNIQUE: Imaging protocol: Radiologic exam of the chest. Views: 1 view. COMPARISON: CT CHEST WO IV CONTRAST 05/11/2024 10:23 PM FINDINGS: Lungs: Diffuse pulmonary opacities, unchanged. Pleural spaces: No pneumothorax. There is a right pleural effusion. Interval resolution of the left pleural effusion. Heart/Mediastinum: Unchanged. Vasculature: Aortic calcifications. Bones/joints: Degenerative change in the spine. Impression No pneumothorax. ELECTRONICALLY SIGNED BY MARQUITA PRINGLE MD ON 05/12/2024 AT 14:23. XR chest 1 view 05/11/2024 Narrative PROCEDURE INFORMATION: Exam: XR Chest Exam date and time: 05/11/2024 8:34 PM Age: 74 years old Clinical indication: SOB. Cough TECHNIQUE: Imaging protocol: Radiologic exam of the chest. Views: 1 view. COMPARISON: DX XR CHEST 1 VIEW 04/18/2024 6:07 PM FINDINGS: Lungs: Left perihilar and bibasilar airspace disease. Prominence of the proximal pulmonary vasculature with cephalization. Pleural spaces: Blunting of the costophrenic angles. Heart/Mediastinum: Enlarged cardiac silhouette. Vasculature: Atherosclerosis of the aorta. Bones/joints: Unremarkable. Impression 1. Findings concerning for pulmonary vascular congestion and interstitial edema. 2. Bilateral moderate pleural effusions with bilateral airspace disease. ELECTRONICALLY SIGNED BY JOEY CORRAL MD ON 05/11/2024 AT 20:40. No results found for this or any previous visit from the past 10 days. Assessment and Plan Principal Problem: Acute hypoxic respiratory failure (HCC) Active Problems: AF (paroxysmal atrial fibrillation) (CMS/HCC) (HCC) JOSH on CPAP Diabetes mellitus type 2, controlled (HCC) S/P TAVR (transcatheter aortic valve replacement) Status post endovascular aneurysm repair (EVAR) Stage 4 chronic kidney disease (CMS/HCC) (HCC) Normocytic anemia Acute on chronic diastolic heart failure (CMS/HCC) (HCC) Chronic kidney disease stage IV. 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 Fluid overload. Recommendation: Continue with diuresis. Bumex 2 mg IV twice daily. Urine osmolality, urine electrolytes. Renal ultrasound. Avoid nephrotoxic medication, avoid NSAID. Dose adjustment to GFR. Thank you for the consultation, any question please call [phone] Jensen Vazquez MD [facility] 2024-04-22 12:03:14 Associated Order(s): IP CONSULT TO OPHTHALMOLOGY OPHTHALMOLOGY CONSULT NOTE PATIENT NAME: Frank Shaw PATIENT : 1950 MR #: [id number] ROOM: [place] [address] [address] DATE OF CONSULT: 04/22/2024 CONSULTING ATTENDING: Rafal Bundy MD CONSULTING RESIDENT: Jessika Lange MD REASON FOR CONSULT: superior visual field cut CHART REVIEWED: YES HISTORY OF PRESENT ILLNESS: Frank Shaw is a 74 y.o. male with a PMH of CKD, HTN, CAD, Afib, DM and a POH of nothing presenting with superior curtain over darkness x`1 day with associated flashes occasionally. He says initially the darkness was over his left eye and has gotten better with just a slight "sliver" of darkness superiorly. REVIEW OF SYSTEMS: CONSTITUTIONAL: No fever, weight changes. MUSCULOSKELETAL: No generalized pain. SKIN: No rash. EYES: As above. ENT: No rhinorrhea, hearing changes, oral lesions. RESPIRATORY: No SOB. CARDIOVASCULAR: No chest pain. GASTROINTESTINAL: No nausea, vomiting, diarrhea. HEMATOPOETIC/LYMPHATIC: No bruising, LAD. GENITOURINARY: No change in UOP. NEUROLOGICAL: No headache. PSYCHIATRIC: No behavioral change. ALLERGY/IMMUNE SYSTEM: No allergies. PAST OCULAR HISTORY: Please see HPI PAST MEDICAL HISTORY: He has a past medical history of Chronic kidney disease, COPD (chronic obstructive pulmonary disease) (HCC), Diabetes mellitus (HCC), and Hypertension. PAST SURGICAL HISTORY: He has a past surgical history that includes CT angiogram heart coronary (01/28/2024); IR angiogram endovascular aortic repair; and Coronary stent placement. SOCIAL HISTORY: He reports that he has been smoking cigarettes. He started smoking about 61 years ago. He has a 61 pack-year smoking history. He does not have any smokeless tobacco history on file. He reports that he does not currently use alcohol. He reports that he does not use drugs. FAMILY HISTORY: No family history on file. ALLERGIES: Patient has no known allergies. MEDICATIONS: Current Facility-Administered Medications: acetaminophen (Tylenol) tablet 650 mg, 650 mg, Oral, q6h PRN, Tierney Holm MD, 650 mg at 04/22/24 0039 amiodarone (Pacerone) tablet 100 mg, 100 mg, Oral, Daily, Viki Atkins DO, 100 mg at 04/22/24 0850 Boost Breeze liquid 1 Container, 1 Container, Oral, BID, Daisy Lundberg MD, 1 Container at 04/22/24 0858 budesonide (Pulmicort) 0.5 MG/2ML nebulizer solution 0.5 mg, 0.5 mg, Nebulization, BID, Viki Atkins DO, 0.5 mg at 04/22/24 0748 bumetanide (Bumex) tablet 2 mg, 2 mg, Oral, Daily, Ramiro Lawn Lydick, MD, 2 mg at 04/22/24 0850 carvedilol (Coreg) tablet 12.5 mg, 12.5 mg, Oral, q12h, Toña Kendall MD, 12.5 mg at 04/22/24 1203 cetirizine (ZyrTEC) tablet 10 mg, 10 mg, Oral, Nightly, Viki Atkins DO, 10 mg at 04/21/24 2117 dextrose 50 % solution 12.5 g, 12.5 g, Intravenous, PRN, Viki Atkins DO dextrose 50 % solution 12.5 g, 12.5 g, Intravenous, PRN, Joseph Vance NP dextrose 50 % solution 25 g, 25 g, Intravenous, PRN, Viki Atkins DO dextrose 50 % solution 25 g, 25 g, Intravenous, PRN, Joseph Vance NP diclofenac sodium 1 % gel 2 g, 2 g, Topical, TID, Brian Sousa MD, 2 g at 04/22/24 1207 finasteride (Proscar) tablet 5 mg, 5 mg, Oral, Daily, Viki Atkins DO, 5 mg at 04/22/24 0849 glucagon injection 1 mg, 1 mg, Intramuscular, PRN, Viki Atkins DO glucagon injection 1 mg, 1 mg, Intramuscular, PRN, Joseph Vance NP guaiFENesin (Mucinex) 12 hr tablet 600 mg, 600 mg, Oral, BID PRN, Blanca Cano MD, 600 mg at 04/07/24 2154 hydrALAZINE (Apresoline) tablet 100 mg, 100 mg, Oral, q8h FRANCISCO, Brian Sousa MD, 100 mg at 04/22/24 0611 insulin lispro (HumaLOG, Admelog) injection 3-12 Units, 3-12 Units, Subcutaneous, TID PRN, Joseph Vance NP, 6 Units at 04/22/24 1159 ipratropium (Atrovent) 0.02 % nebulizer solution 0.5 mg, 0.5 mg, Nebulization, 4x daily, Viki Atkins DO, 0.5 mg at 04/22/24 1055 lidocaine 4 % patch 1 patch, 1 patch, Apply externally, Daily, Brian Sousa MD, 1 patch at 04/22/24 0849 melatonin tablet 6 mg, 6 mg, Oral, Nightly, Ramiro Mcdonald MD, 6 mg at 04/21/242116 montelukast (Singulair) tablet 10 mg, 10 mg, Oral, Nightly, Viki Atkins DO, 10 mg at 04/21/242116 morphine PF injection 2 mg, 2 mg, Intravenous, q8h PRN, Justus Chapman MD, 2 mg at 04/06/24 0235 nicotine (Nicoderm, Step 1) 21 MG/24HR patch 1 patch, 1 patch, Transdermal, Daily, 1 patch at 04/22/24 0850 FOLLOWED BY [START ON 05/20/2024] nicotine (Nicoderm, Step 2) 14 MG/24HR patch 1 patch, 1 patch, Transdermal, Daily FOLLOWED BY [START ON 06/03/2024] nicotine (Nicoderm, Step 3) 7 MG/24HR patch 1 patch, 1 patch, Transdermal, Daily, Keisha Kendall MD NIFEdipine XL (Procardia XL) 60 mg, 60 mg, Oral, BID, Brian Sousa MD, 60 mg at 04/22/24 0850 nitroglycerin (Nitrostat) SL tablet 0.4 mg, 0.4 mg, Sublingual, q5 min PRN, Viki Atkins DO, 0.4 mg at 04/04/24 1320 pantoprazole (ProtoNix) EC tablet 40 mg, 40 mg, Oral, Daily before breakfast, Estevan Boucher MD, 40 mg at 04/22/24 0850 potassium chloride CR (Klor-Con M20) ER tablet 20 mEq, 20 mEq, Oral, Daily, Keisha Kendall MD, 20 mEq at 04/22/24 0858 rivaroxaban (Xarelto) tablet 15 mg, 15 mg, Oral, Nightly, Estevan Boucher MD, 15 mg at 04/21/24 2117 sodium bicarbonate tablet 650 mg, 650 mg, Oral, TID, Johanna Chavez MD, 650 mg at 04/22/24 1203 sodium chloride (NS) 0.9 % flush 10 mL, 10 mL, Intravenous, q12h FRANCISCO, Viki Atkins DO, 10 mL at 04/22/24 0851 sodium chloride (NS) 0.9 % flush 10 mL, 10 mL, Intravenous, PRN, Viki Atkins DO tamsulosin (Flomax) 24 hr capsule 0.4 mg, 0.4 mg, Oral, Daily, Viki Atkins DO, 0.4 mg at 04/22/24 0850 Last Recorded Vitals Blood pressure 127/61, pulse 67, temperature 36.9 ?C (98.4 ?F), temperature source Oral, resp. rate 16, height 1.778 m (5' 10"), weight 101 kg (222 lb 10.6 oz), SpO2 99%. Ophthalmologic Exam : Base Eye Exam Visual Acuity (Snellen - Linear) Right Left Near cc 20/200 PH 20/20 20/200 PH 20/50 Tonometry (Tonopen, 12:02 PM) Right Left Pressure 15 16 Pupils Dark Light Shape React APD Right 4 2 Round Brisk None Left 4 2 Round Brisk None Visual Rodriguez (Counting fingers) Left Right Full Full Extraocular Movement Right Left Full Full Neuro/Psych Oriented x3: Yes Mood/Affect: Normal Dilation Both eyes: 1.0% Mydriacyl, 2.5% phenylephrine @ 12:03 PM Slit Lamp and Fundus Exam External Exam Right Left External Normal Normal Slit Lamp Exam Right Left Lids/Lashes Normal Normal Conjunctiva/Sclera White and quiet White and quiet Cornea Clear Clear Anterior Chamber Deep and quiet Deep and quiet Iris Round and reactive Round and reactive Lens NS NS Anterior Vitreous Normal Normal Fundus Exam Right Left Disc Normal Normal C/D Ratio .1 .1 Macula Normal Normal Vessels Normal Normal Periphery Normal Normal Eye exam last edited by Jessika Lange MD on 04/22/2024 at 13:29 HEADER DOCK IMAGING: No CT head results found for the past 14 days No MRI head results found for the past 14 days PROCEDURES PERFORMED: None DIAGNOSES/RECOMMENDATION: 1. Visual Disturbance, left eye - self resolved 2. Rule out (r/o) BRAO - unclear etiology. Could be due to dermatochalasis but can not rule out branch retinal artery occlusion (BRAO) in this context. - Recommend ESR/CRP - further evaluation per stroke team - follow up outpatient for further workup if persists - rest of care per primary 2. Cataract, left eye - outpatient evaluation Please have the patient follow up with their primary eye care provider upon discharge. Eye Physicians with [facility] see patients at the [facility] and at the [facility]. The patient can call for an appointment at the [facility] or if a [facility] resident and has or is eligible for a gold card, can follow up in the [facility]. To call for a follow up visit at the [facility] please call [phone]. For follow up at [facility] please call [phone]. Please page the ophthalmology on-call resident if any changes develop or if you have any questions or concerns. Thank you for the consult. We will sign off Jessika Lange MD Ophthalmology PGY 2 [facility] Cosigned by Rafal Bundy MD PhD at 04/23/2024 11:18 AM HEADER DOCK ER DOCK ER DOCK ER DOCK Associated attestation - Rafal Bundy MD PhD - 04/23/2024 11:18 AM HEADER DOCK I reviewed the case with the resident but did not see the patient. I agree with the assessment and plan as documented in the resident's note. Ophthalmology [facility] 2024-04-20 13:19:28 Images from the original note were not included. Reason For Consult Necrotic toes History Of Present Illness Frank Shaw is a 74 y.o. male presenting with PMHx of CAD s/p 5 prior stent, paroxysmal a fib on Xarelto, hypertension, diabetes mellitus, hyperlipidemia, aortic stenosis s/p TAVR in 01/26, CKD stage 3, JOSH on CPAP, chronic tobacco use, COPD who presented to OSH with chest pain that had started the evening prior which initially resolved with nitroglycerine and then recurred on 2 subsequent occasions. He was found to be anemia with a hgb of 7.2 at the OSH and guaiac positive stool. He reports that he has had melena for the last few day as well as diarrhea, he denies abdominal pain. He did not realize what the dark stools were at first. He reports that the chest pain felt like a pressure. When he woke on morning and the pain was still present he presented to the ED. Bilateral foot toes are ischemic and purple colored. He stated that ischemic changes started 6 days ago. His middle toe nail ripped off yesterday. No drainage. Past Medical History He has a past medical history of Chronic kidney disease, COPD (chronic obstructive pulmonary disease) (HCC), Diabetes mellitus (HCC), and Hypertension. Surgical History He has a past surgical history that includes CT angiogram heart coronary (01/28/2024); IR angiogram endovascular aortic repair; and Coronary stent placement. Social History He reports that he has been smoking cigarettes. He started smoking about 61 years ago. He has a 61 pack-year smoking history. He does not have any smokeless tobacco history on file. He reports that he does not currently use alcohol. He reports that he does not use drugs. Allergies Patient has no known allergies. Medications Medications Prior to Admission Medication Sig Dispense Refill Last Dose/Taking cetirizine (ZyrTEC) 10 MG tablet 10 mg = 1 tab, PO, Daily, # 30 tab, 3 Refill(s) 03/31/2024 evolocumab (Repatha SureClick) 140 MG/ML injection 140 mg, SUB-Q, Q14D, # 2 ea, 0 Refill(s), Pharmacy: [id number], Meds to bed. HVI2, RM#115, 177.8, cm, 08/18/23 8:54:00 CDT, Height, 107.273, kg, 08/18/23 8:54:00 CDT, Weight Past Month finasteride (Proscar) 5 MG tablet 5 mg = 1 tab, PO, Daily, # 90 tab, 1 Refill(s) 03/31/2024 furosemide (Lasix) 40 MG tablet 40 mg = 1 tab, PO, PRN, PRN Edema, # 90 tab, 1 Refill(s) 03/31/2024 isosorbide mononitrate 20 MG tablet 20 mg = 1 tab, PO, Daily, # 60 tab, 0 Refill(s) More than a month losartan (Cozaar) 50 MG tablet Take 50 mg by mouth in the morning and 50 mg in the evening. 03/31/2024 montelukast (Singulair) 10 MG tablet 10 mg = 1 tab, PO, Bedtime, # 30 tab, 0 Refill(s) 04/01/2024 NIFEdipine XL (Procardia XL) 30 MG Take 30 mg by mouth 1 time each day. Taking nitroglycerin (Nitrostat) 0.4 MG SL tablet 0.4 mg = 1 tab, SL, Q5Min, PRN chest pain, 0 Refill(s) 04/01/2024 Morning rivaroxaban (Xarelto) 20 MG tablet 20 mg, PO, QPM, tab, 0 Refill(s) 03/31/2024 amiodarone (Pacerone) 200 MG tablet Take 100 mg by mouth 1 time each day. 03/31/2024 aspirin EC 81 MG EC tablet Take 81 mg by mouth 1 time each day. 03/31/2024 fluticasone (Flonase) 50 MCG/ACT nasal spray 50 microgram = 1 spray, NASAL, Q4H, PRN Congestion, 0 Refill(s) Unknown Uzfynmjumpv-Gfjiuhqua-Ejft nt 100-62.5-25 MCG/ACT aerosol powder Inhale 1 Inhalation 1 time each day. 03/31/2024 glimepiride (Amaryl) 1 MG tablet 1 mg = 1 tab, PO, Breakfast, # 30 tab, 0 Refill(s) 03/31/2024 metoprolol succinate XL (Kapspargo) 50 MG 24 hr capsule Take 25 mg by mouth in the morning and 25 mg in the evening. 03/31/2024 mometasone-formoterol (Dulera 200) 200-5 MCG/ACT inhaler Inhale 2 puffs in the morning and 2 puffs in the evening. Rinse mouth with water after use to reduce aftertaste and incidence of candidiasis. Do not swallow.. 03/31/2024 tamsulosin (Flomax) 0.4 MG 24 hr capsule 0.4 mg = 1 cap, PO, Daily, # 90 cap, 0 Refill(s) 03/31/2024 Review of Systems Review of Systems Constitutional: Negative for chills. HENT: Negative for congestion. Eyes: Negative for blurred vision. Cardiovascular: Negative for chest pain. Respiratory: Negative for cough. Skin: Positive for color change and dry skin. Gastrointestinal: Negative for nausea and vomiting. Neurological: Negative for dizziness. Psychiatric/Behavioral: Negative for altered mental status. Physical Exam Physical Exam: HENT: Head: Normocephalic and atraumatic. Nose: Nose normal. Mouth/Throat: Mouth: Mucous membranes are moist. Cardiovascular: Rate and Rhythm: Regular rhythm. Heart sounds: Normal heart sounds. Comments: Unable to palpable PT and DP due to swelling Pulmonary: Breath sounds: Normal breath sounds. Abdominal: Palpations: Abdomen is soft. Musculoskeletal: General: Swelling present. Right lower leg: Edema present. Left lower leg: Edema present. Feet: Feet: Comments: Right toe nail ripped off yesterday per pt. Bilateral foot toes are purple, no opened area and wet gangrene noted. Bilateral feet: Swelling. Skin: General: Skin is dry. Neurological: Mental Status: He is alert and oriented to person, place, and time. Motor: Weakness present. Last Recorded Vitals Blood pressure 123/60, pulse 68, temperature 36.9 ?C (98.4 ?F), temperature source Oral, resp. rate 20, height 1.778 m (5' 10"), weight 101 kg (222 lb 10.6 oz), SpO2 97%. Relevant Results Pertinent Labs : Lab Results Component Value Date WBC 12.88 (H) 04/20/2024 Hgb 8.9 (L) 04/20/2024 Hct 28.3 (L) 04/20/2024 Plt Count 206 04/20/2024 Lab Results Component Value Date Sodium Lvl 136 04/20/2024 Potassium Lvl 3.4 04/20/2024 Chloride Lvl 100 04/20/2024 CO2 Lvl 25.2 04/20/2024 BUN 63 (H) 04/20/2024 Creatinine Lvl 4.49 (H) 04/20/2024 Glucose Lvl 155 (H) 04/20/2024 POC Glu 147 (H) 04/20/2024 Assessment & Plan Principal Problem: Acute on chronic blood loss anemia Active Problems: CKD (chronic kidney disease) stage 3, GFR 30-59 ml/min ([facility]) Primary hypertension 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 -Keep feet dry to prevent wet gangrene. -Right foot x ray done-pending for result. -US lower extremity arterial doppler bilateral done. Thank you for consult. Cosigned by Bernard Kline MD at 04/20/2024 3:39 PM HEADER DOCK ER DOCK ER DOCK Associated attestation - Bernard Kline MD - 04/20/2024 3:39 PM HEADER DOCK Medical Decision Making 74 y.o. PMH CAD s/p stents, paroxysmal A. Fib, HTN, DM, HLD, aortic stenosis s/p TAVR, JOSH on CPAP, COPD, CKD stage 3b/IV presented for evaluation of GIB. Concern for Bilateral toes ischemia CVS consulted- no intervention required MRI- pending ELLA IMPRESSION: 1. RIGHT: Diffuse moderate to severe atherosclerotic plaque with stenosis in the mid SFA and popliteal arteries. Distal posterior tibial and anterior tibial arteries are patent with abnormal waveforms reflecting more proximal obstruction. Could not exclude additional tibial artery stenosis not included on this exam. Aneurysmal dilatation in the distal SFA/proximal popliteal artery measuring 1.7 cm. 2. LEFT: Diffuse moderate to severe atherosclerotic plaque with stenosis in the mid SFA and occlusion of the distal posterior tibial artery. 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 Betadine to nail bed. S/o chronic stasis, venous/lymphatic congestion on exam Conservative measures for control edema- JAMIE patrick Will recommend compression garments as outpatient for prophylaxis against stasis skin changes, ulcers. Consider referral to lymphedema clrupert Hoang Young 2024-04-04 16:37:40 Consults PCCM History Of Present Illness This is a 74-year-old male with CAD with prior stents, paroxysmal A-fib on Xarelto, HTN, DM2, HLD, aortic stenosis s/p TAVR in January 2024, CKD stage III, JOSH on CPAP, chronic tobacco use, COPD who presented to an OSH with melena and now transferred here for evaluation by GI. Was in the [facility] and was transferred to [facility] on 04/04/2024 owing to hypertension requiring nitroglycerin drip Received patient on Protonix drip at 8 mg/h and nitroglycerin drip at 40 mcg/min Past Medical History He has a past medical history of Chronic kidney disease, COPD (chronic obstructive pulmonary disease) (HCC), Diabetes mellitus (HCC), and Hypertension. Surgical History He has a past surgical history that includes CT angiogram heart coronary (01/28/2024); IR angiogram endovascular aortic repair; and Coronary stent placement. Social History He reports that he has been smoking cigarettes. He started smoking about 60 years ago. He has a 60.9 pack-year smoking history. He does not have any smokeless tobacco history on file. He reports that he does not currently use alcohol. He reports that he does not use drugs. Family History No family history on file. Allergies Patient has no known allergies. Medications Medications Prior to Admission Medication Sig Dispense Refill Last Dose/Taking cetirizine (ZyrTEC) 10 MG tablet 10 mg = 1 tab, PO, Daily, # 30 tab, 3 Refill(s) 03/31/2024 evolocumab (Repatha SureClick) 140 MG/ML injection 140 mg, SUB-Q, Q14D, # 2 ea, 0 Refill(s), [id number], Meds to bed. HVI2, RM#115, 177.8, cm, 08/18/23 8:54:00 CDT, Height, 107.273, kg, 08/18/23 8:54:00 CDT, Weight Past Month finasteride (Proscar) 5 MG tablet 5 mg = 1 tab, PO, Daily, # 90 tab, 1 Refill(s) 03/31/2024 furosemide (Lasix) 40 MG tablet 40 mg = 1 tab, PO, PRN, PRN Edema, # 90 tab, 1 Refill(s) 03/31/2024 isosorbide mononitrate 20 MG tablet 20 mg = 1 tab, PO, Daily, # 60 tab, 0 Refill(s) More than a month losartan (Cozaar) 50 MG tablet Take 50 mg by mouth in the morning and 50 mg in the evening. 03/31/2024 montelukast (Singulair) 10 MG tablet 10 mg = 1 tab, PO, Bedtime, # 30 tab, 0 Refill(s) 04/01/2024 NIFEdipine XL (Procardia XL) 30 MG Take 30 mg by mouth 1 time each day. Taking nitroglycerin (Nitrostat) 0.4 MG SL tablet 0.4 mg = 1 tab, SL, Q5Min, PRN chest pain, 0 Refill(s) 04/01/2024 Morning rivaroxaban (Xarelto) 20 MG tablet 20 mg, PO, QPM, tab, 0 Refill(s) 03/31/2024 amiodarone (Pacerone) 200 MG tablet Take 100 mg by mouth 1 time each day. 03/31/2024 aspirin EC 81 MG EC tablet Take 81 mg by mouth 1 time each day. 03/31/2024 fluticasone (Flonase) 50 MCG/ACT nasal spray 50 microgram = 1 spray, NASAL, Q4H, PRN Congestion, 0 Refill(s) Unknown Ielicycawxj-Xivtanmxg-Otiz nt 100-62.5-25 MCG/ACT aerosol powder Inhale 1 Inhalation 1 time each day. 03/31/2024 glimepiride (Amaryl) 1 MG tablet 1 mg = 1 tab, PO, Breakfast, # 30 tab, 0 Refill(s) 03/31/2024 metoprolol succinate XL (Kapspargo) 50 MG 24 hr capsule Take 25 mg by mouth in the morning and 25 mg in the evening. 03/31/2024 mometasone-formoterol (Dulera 200) 200-5 MCG/ACT inhaler Inhale 2 puffs in the morning and 2 puffs in the evening. Rinse mouth with water after use to reduce aftertaste and incidence of candidiasis. Do not swallow.. 03/31/2024 tamsulosin (Flomax) 0.4 MG 24 hr capsule 0.4 mg = 1 cap, PO, Daily, # 90 cap, 0 Refill(s) 03/31/2024 Review of Systems Gastrointestinal: Melena All other systems reviewed and are negative. Physical Exam: Constitutional: Appearance: Normal appearance. He is obese. Cardiovascular: Rate and Rhythm: Normal rate and regular rhythm. Pulses: Normal pulses. Heart sounds: Normal heart sounds. Pulmonary: Effort: Pulmonary effort is normal. No respiratory distress. Breath sounds: Normal breath sounds. Abdominal: General: Bowel sounds are normal. Palpations: Abdomen is soft. Skin: General: Skin is warm and dry. Capillary Refill: Capillary refill takes less than 2 seconds. Neurological: General: No focal deficit present. Mental Status: He is alert and oriented to person, place, and time. Psychiatric: Mood and Affect: Mood normal. Behavior: Behavior normal. Last Recorded Vitals Blood pressure 161/67, pulse 89, temperature 36.6 ?C (97.8 ?F), resp. rate 21, height 1.778 m (5' 10"), weight 104 kg (229 lb), SpO2 100%. 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 ([facility]) AF (paroxysmal atrial fibrillation) ([facility]/HCC) ([facility]) Chronic bronchitis ([facility]) JOSH on CPAP Diabetes mellitus type 2, controlled ([facility]) S/P TAVR (transcatheter aortic valve replacement) Status post endovascular aneurysm repair (EVAR) GI bleed BPH (benign prostatic hyperplasia) 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 Melatonin for sleep aid CV: -Holding oral antihypertensives in the setting of GI bleed however patient is hypertensive currently so nitroglycerin drip was started -Lasix given for pulmonary edema/volume overload -Continue amiodarone for A-fib -EF 55 to 60% Resp: -Supplemental O2 to keep O2 sats > 92% -Chest x-ray shows bilateral pleural effusions and cardiogenic pulmonary edema -Continue scheduled budesonide, albuterol/ipratropium, montelukast for COPD -Continue volume expansion protocol and incentive spirometry -Smoking cessation advice given. Nicotine patch if requested -Continue Zyrtec for seasonal allergies GI/Nutrition: -Clear with diet tonight and n.p.o. after midnight for push endoscopy in the morning -Continue on Protonix drip Renal/Electrolytes: -Monitor UOP with strict I's/O's. NAREN on CKD -Trend BUN/Cr -Avoid nephrotoxic agents -Replace electrolytes as needed -Continues on sodium bicarb tablets -Continue Tamsulosin and finasteride for urinary retention/BPH Endo: -Continue strict glycemic control with sliding scale insulin to keep blood glucose 100-180 Heme/Onc: -Monitor for bleeding and coagulopathies -Maintain Hgb > 7 and Platelets > 10k -Trending hemoglobin received PRBC today ID: -No s/s of infection. Continue to monitor Musculoskeletal/Skin: -Continue wound care and sacral decubitus prevention -PT/OT and out of be to chair daily Prophylaxis: -DVT ppx: SCD/TEDs -PUD ppx: Protonix Vascular/ access: Peripheral IV 04/01/24 Left;Posterior Hand (Active) Peripheral IV 04/01/24 Right Antecubital (Active) Peripheral IV 04/01/24 Left Antecubital (Active) Compliance: Restraints: None Indwelling Cat Catheter: None Central Venous Access: None Arterial Access: None Code Status: Full Disposition: CCU I spent a total of 25 minutes of critical care time with this patient independently, not including procedure time, then plan was discussed with [place] PCCM Attending Dr. Wale Meza, MSN, [facility] MSO #[id number] Division of Pulmonary Critical Care Medicine [facility] [email or web address] Cosigned by Florian Echevarria MD at 04/04/2024 5:43 PM HEADER DOCK ER DOCK ER DOCK Associated attestation - Florian Echevarria MD - 04/04/2024 5:43 PM HEADER DOCK [place] PCCM Attending Attestation I saw and examined the patient on 04/04/24. I agree with Dana Meza NP's chief complaint, history, exam, and medical decision making with the following additions/revisions: Pt transferred from IMU for HTN emergency Started on nitroglycerin gtt by cardio Had BM, nursing report was brown not black Continues on PPI gtt with plans for endoscopy tomorrow Says he feels ok, cp resolved, no hdz Physical Exam: Awake, alert, appropriate Conversant Nc in place Chest clear RRR Abd obese, nontender Extr warm No edema Assessment & Plan Problem List: Principal Problem: Acute on chronic blood loss anemia Active Problems: CKD (chronic kidney disease) stage 3, GFR 30-59 ml/min (HCC) Primary hypertension 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 (HCC) AF (paroxysmal atrial fibrillation) (CMS/HCC) (HCC) Chronic bronchitis (HCC) JOSH on CPAP Diabetes mellitus type 2, controlled ([facility]) S/P TAVR (transcatheter aortic valve replacement) Status post endovascular aneurysm repair (EVAR) GI bleed BPH (benign prostatic hyperplasia) 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 (HCC) Acute kidney injury (HCC) Hypertensive urgency -nitroglyc gtt per cardio -monitor H/H -NPO p MN for Push enteroscopy -f/u nephro recs for AoCKD -TF PRN, Hb goal 8 per cards -podiatry consult per vascular recs for nail dystrophia -home cpap if family brings -SSI Code status: Full Code Florian Echevarria MD [facility] Pulmonary and Critical Care Medicine Faculty Gerontology Nurse Practitioner [facility] 2024-04-04 07:20:51 Associated Order(s): IP CONSULT TO CARDIOLOGY Cardiology consult note Chief complaints Chest pain and dark black stool Referring physician Hospitalist team Reason for consult Chest Pain HPI Frank Shaw is a 74 y.o. male with PMHx of CAD s/p 5 prior stents (2004, with repeat LHC in 08/2023), EVAR for AAA in 2011, HFrEF 20% due to (EF went from 40% to 20% from 07/2023 to 01/2024) paroxysmal a fib on Xarelto, hypertension, diabetes mellitus, hyperlipidemia, aortic stenosis s/p TAVR in 01/26, CKD stage 3, JOSH on CPAP, chronic tobacco use, COPD who presented to OSH with chest pain and melena for whom GI is planning for push enteroscopy on Friday. Cardiology got consulted in the setting of chest pain. He reports that evening prior he had an episode chest pain that resolved with nitroglycerin and then recurred that prompted him to come to ED. He was noted to have anemia of Hb 7.2, and guaiac positive stool and he reports that he noticed black stools for a week or so. His chest pain was sub-sternal, felt like pressure sensation and no radiation of the pain. He said he had some shortness of breath with it and some dizziness that made him more concerned. He had a recent ED visit for dizziness and got treated for hypoglycemia. Today, on talking with him, he denies chest pain, shortness of breath, palpitations, abdominal pain, constipation, diarrhea, fever, chills, leg pain or swelling. ROS 12 points of ROS negative except mentioned in HPI Vitals Vitals: 04/04/24 0300 04/04/24 0400 04/04/24 0500 04/04/24 0600 BP: 162/72 146/65 142/65 160/67 Pulse: 70 75 84 67 Resp: 16 18 18 14 Temp: SpO2: 97% 98% Physical exam: GENERAL: awake, alert HEENT: Normocephalic, atraumatic. Extraocular muscles intact. No scleral icterus. NECK: Supple, full ROM CARDIOVASCULAR: regular rate and rhythm LUNGS: clear to auscultation bilaterally, no wheezing, no accessory muscle use ABDOMEN: Soft, nontender, nondistended. Bowel sounds present. EXTREMITIES: no pedal edema, full ROM in bilateral UE/LE NEUROLOGIC: Alert and oriented to time, place and person, SKIN: warm, no rashes Current meds Current Facility-Administered Medications: albuterol (2.5 MG/3ML) 0.083% nebulizer solution 2.5 mg, 2.5 mg, Nebulization, q4h, Viki Atkins DO, 2.5 mg at 04/03/24 2335 amiodarone (Pacerone) tablet 100 mg, 100 mg, Oral, Daily, Viki Atkins DO, 100 mg at 04/03/24 0901 budesonide (Pulmicort) 0.5 MG/2ML nebulizer solution 0.5 mg, 0.5 mg, Nebulization, BID, Viki Atkins DO, 0.5 mg at 04/03/242019 cetirizine (ZyrTEC) tablet 10 mg, 10 mg, Oral, Nightly, Viki Atkins DO, 10 mg at 04/03/242036 dextrose 50 % solution 12.5 g, 12.5 g, Intravenous, PRN, Viki Atkins DO dextrose 50 % solution 25 g, 25 g, Intravenous, PRN, Viki Atkins DO finasteride (Proscar) tablet 5 mg, 5 mg, Oral, Daily, Viki Atkins DO, 5 mg at 04/03/24 0901 glucagon injection 1 mg, 1 mg, Intramuscular, PRN, Viki Atkins DO hydrALAZINE injection 10 mg, 10 mg, Intravenous, q4h PRN, Blanca Cano MD insulin lispro (HumaLOG, Admelog) injection 2-8 Units, 2-8 Units, Subcutaneous, q6h PRN, Viki Atkins DO ipratropium (Atrovent) 0.02 % nebulizer solution 0.5 mg, 0.5 mg, Nebulization, 4x daily, Viki Atkins DO, 0.5 mg at 04/03/242018 isosorbide mononitrate ER (Imdur) 24 hr tablet 30 mg, 30 mg, Oral, Daily, Blanca Cano MD, 30 mg at 04/03/24 1653 [Held by provider] losartan (Cozaar) tablet 25 mg, 25 mg, Oral, Daily, Blanca Cano MD, 25 mg at 04/03/24 1326 montelukast (Singulair) tablet 10 mg, 10 mg, Oral, Nightly, Viki Atkins DO, 10 mg at 04/03/242036 nitroglycerin (Nitrostat) SL tablet 0.4 mg, 0.4 mg, Sublingual, q5 min PRN, Viki Atkins DO, 0.4 mg at 04/03/24 1135 pantoprazole (Protonix) 80 mg in sodium chloride 0.9 % 100 mL infusion, 8 mg/hr, Intravenous, Continuous, Viki Atkins DO, Last Rate: 10 mL/hr at 04/03/240, 8 mg/hr at 04/03/240 [START ON 04/05/2024] pantoprazole (ProtoNix) EC tablet 40 mg, 40 mg, Oral, BID AC, Viki Atkins DO sodium bicarbonate tablet 650 mg, 650 mg, Oral, TID, Blanca Cano MD, 650 mg at 04/03/24 185 sodium chloride (NS) 0.9 % flush 10 mL, 10 mL, Intravenous, q12h FRANCISCO, Viki Atkins DO, 10 mL at 04/03/242129 sodium chloride (NS) 0.9 % flush 10 mL, 10 mL, Intravenous, PRN, Viki Atknis DO tamsulosin (Flomax) 24 hr capsule 0.4 mg, 0.4 mg, Oral, Daily, Viki Atkins DO, 0.4 mg at 04/03/24 0901 Home meds reviewed Current labs Pertinent Labs : Lab Results Component Value Date WBC 9.43 04/04/2024 Hgb 7.0 (LL) 04/04/2024 POC A Hct (calc) 27.0 (L) 04/03/2024 Hct 22.0 (L) 04/04/2024 Plt Count 154 (L) 04/04/2024 Lab Results Component Value Date POC A Na 135 04/03/2024 Sodium Lvl 141 04/04/2024 POC A K 4.5 04/03/2024 Potassium Lvl 4.4 04/04/2024 POC Chloride 111 (H) 04/03/2024 Chloride Lvl 116 (H) 04/04/2024 CO2 Lvl 16.1 (L) 04/04/2024 BUN 46 (H) 04/04/2024 Creatinine Lvl 3.43 (H) 04/04/2024 POC A Glu 215 (H) 04/03/2024 Glucose Lvl 129 (H) 04/04/2024 POC Glu 119 (H) 04/04/2024 Lab Results Component Value Date Calcium Lvl 7.7 (L) 04/04/2024 Magnesium 1.99 04/04/2024 Phosphorus Lvl 4.3 04/04/2024 Lab Results Component Value Date AST 11 (L) 04/03/2024 ALT 9 04/03/2024 Alkaline Phosphatase 81 04/03/2024 Lab Results Component Value Date PTT 53.6 (H) 04/02/2024 Prothrombin Time (PT) 24.8 (H) 04/03/2024 INR 2.23 (H) 04/03/2024 Lab Results Component Value Date UA Color Yellow 04/04/2024 UA Spec Grav 1.013 04/04/2024 UA pH 5.0 04/04/2024 UA Protein 100 (A) 04/04/2024 UA Glucose 50 (A) 04/04/2024 UA Ketones Negative 04/04/2024 UA Nitrite Negative 04/04/2024 UA Leuk Esterase Negative 04/04/2024 UA Bilirubin Negative 04/04/2024 UA Urobilinogen <=1.0 04/04/2024 Lab Results Component Value Date HS Troponin I 32 04/03/2024 No components found for: "HGBA1C;2" No components found for: "TSH;2" Intake Output Intake/Output Summary (Last 24 hours) at 04/04/2024 0721 Last data filed at 04/03/2024 1923 Gross per 24 hour Intake 128.01 ml Output 650 ml Net -521.99 ml Pertinent images reviewed EKG Encounter Date: 04/02/24 ECG 12 lead Result Value Ventricular Rate 93 Atrial Rate 93 DC Interval 234 QRS Duration 110 QT/QTc 370 QTc Calculation 460 P-[place] 68 R-[place] -2 T-[place] 58 Assessment and Plan: Frank Shaw is a 74 y.o. male with PMHx of CAD s/p 5 prior stents (2004, with repeat LHC in 08/2023), EVAR for AAA in 2011, HFrEF 20% due to (EF went from 40% to 20% from 07/2023 to 01/2024) paroxysmal a fib on Xarelto, hypertension, diabetes mellitus, hyperlipidemia, aortic stenosis s/p TAVR in 01/26, CKD stage 3, JOSH on CPAP, chronic tobacco use, COPD who presented to OSH with chest pain and melena for whom GI is planning for push enteroscopy on Friday. Cardiology got consulted in the setting of chest pain. #Chest Pain #Melena #Aortic Stenosis s/p TAVR (01/2024) #CAD s/p stents #P Afib (on Xarelto) - presented to hospital with chest pain and dark stools - 08/2023 LHC: LAD 40% proxima, ISR mid, Lcx ISR mid, RCA PHYSICAL THERAPY AIDE mid to distal with collaterals. - Hb 6.8 (1u pRBC on 04/02, now 7.0), it was 14, 2 months back - EKG: sinus rhythm with first degree block (DC interval 234), no ST changes or t-wave inversion noted - Troponins were negative at 32 (no repeat in chart for trend) - His blood pressure was very high that could be the inciting factor for chest pain - Home Meds: toprol XL 50 mg daily, losartan 50 gm daily, lasix 40 mg daily, imdur 20 gm daily (not taking), could not start jardiance 10 mg daily due to low GFR < 30 - He sees Dr. Delaney in clinic and Dr. 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 for which he is on amio 100 mg daily - Baseline Cr 2.1-2.2, now on 3.4 (held Losartan that could be the cause for NAREN) - TTE (01/30/2024): LVEF 20-25%, severe diffuse hypokinesis after which he got started on GDMT with toprol XL 50 mg daily, losartan 50 mg daily, imdur 20 mg daily, could not start jardiance due to low GFR and then he was on lasix 40 mg daily - He has not completed 3 months of GDMT trial to assess EF recovery - Repeat TTE this morning showed EF 55% back to his normal with good wall motions (GDMT worked) Recommendations: - Please continue imdur 30 mg daily, consider adding coreg 6.25 mg BID and hydralazine 25 mg q8h for arterial vasodilator effect to bring down the SBP - Transfuse for Hb < 8 due to extensive CAD history - Keep K>4, PO4 >3, Mg >2 - Rest of care as per primary - we will take over after talking with the hospitalist Patient seen and discussed with Dr. Dominguez. Cardiology will be primary now. Javier Joiner MD PGY-3, [facility] Internal Medicine Cosigned by Caleb Dominguez MD at 04/04/2024 2:58 PM HEADER DOCK ER DOCK ER DOCK Associated attestation - Caleb Dominguez MD - 04/04/2024 2:58 PM HEADER DOCK The patient was seen and examined with the resident/fellow. The relevant lab results, imaging and EKGs were personally reviewed, and the medications were reconciled. I agree with above mentioned assessment and plan. The patient remain critically ill, and requires ICU level of care due to high probability of imminent or life-threatening deterioration. Plan discussed with treatment team as outlined with the following additions/corrections: Patient Active Problem List Diagnosis Date Noted Hypertensive urgency 04/03/2024 CKD (chronic kidney disease) stage 3, GFR 30-59 ml/min ([facility]) 04/02/2024 Primary hypertension 04/02/2024 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 ([facility]) 04/02/2024 Acute on chronic blood loss anemia 04/02/2024 AF (paroxysmal atrial fibrillation) ([facility]) ([facility]) 04/02/2024 Chronic bronchitis ([facility]) 04/02/2024 JOSH on CPAP 04/02/2024 Diabetes mellitus type 2, controlled ([facility]) 04/02/2024 S/P TAVR (transcatheter aortic valve replacement) 04/02/2024 Status post endovascular aneurysm repair (EVAR) 04/02/2024 GI bleed 04/02/2024 Brain TIA 04/02/2024 Chronic renal failure (CRF), stage 3 (moderate) ([facility]) 04/02/2024 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 (HCC) 04/02/2024 Acute kidney injury (HCC) 04/02/2024 BPH (benign prostatic hyperplasia) 02/10/2024 Non-ST elevation (NSTEMI) myocardial infarction (CMS/HCC) (HCC) 02/10/2024 Abdominal aortic aneurysm (AAA) without rupture (HCC) 02/10/2024 Chronic systolic heart failure (CMS/HCC) ([facility]) 02/06/2024 Nonrheumatic aortic (valve) stenosis 12/12/2023 Hyperlipidemia 01/03/2016 Due to the severity of the case total time spent evaluating, coordinating, managing, and providing care to the ICU patient > than 35 minutes of critical care time excluding any procedures performed Caleb Dominguez MD, [facility], [facility] learning disabilities teacher Interventional Cardiology [facility] | [facility] Internal Medicine [facility] 2024-04-04 07:19:03 [place] Renal Initial Consult Note Reason for consult: NAREN Requesting Physician/Service: Dr Blanca Cano Consulting Physician: Dr Josie Arroyo Date of Consultation: 04/04/2024 Admission Diagnosis: GI bleed [K92.2] Chief Complaint: No chief complaint on file. History Obtained From: Assessment & Plan: Mr. Frank Shaw is a 74 y.o. male PMHx of CAD s/p stents, paroxysmal A. Fib, HTN, DM, HLD, aortic stenosis s/p TAVR, JOSH on CPAP, COPD, CKD stage 3b/IV who presented to [facility] on 04/02/2024 from OSH for evaluation of GIB. Nephrology is consulted for management of NAREN: Acute Kidney Injury on CKD IIIb/IV - Baseline Function: ckd stage 3b - 4, creatinine 2.16 mg/dL (01/2024) Currently at 3.4 - Risk factors for NAREN: Anemia 2/2 GIB, Uncontrolled HTN Plan: - Management and work up of GIB per primary. Transfuse for Hgb <7. - Holding ARB at this time. Diuresis is also on hold in the setting of GIB. Will need close monitoring of volume status and diuresis as needed. - No need for [employer] at this time. Metabolic acidosis - 2/2 renal failure. Start sodium bicarb 650 mg TID. Jemima Mouawad MD, PGY-5 Division of Renal Diseases and Hypertension Department of Internal Medicine HPI Mr. Frank Shaw is a 74 y.o. male PMHx of CAD s/p stents, paroxysmal A. Fib, HTN, DM, HLD, aortic stenosis s/p TAVR, JOSH on CPAP, COPD, CKD stage 3 who presented to [facility] on 04/02/2024 from OSH for evaluation of GIB. Patient reported multiple day history of melena. His Hgb was found to be 7.2, and stools were guaiac positive. He has also been having intermittent chest pain. Since admission, transferred to [facility] for chest pain and hypertensive urgency. Nephrology is consulted for management of NAREN. Review of Systems Review of Systems All other systems reviewed and are negative. Complete 14 point review of systems negative other than stated in HPI. Past Medical History: Diagnosis Date Chronic kidney disease COPD (chronic obstructive pulmonary disease) (HCC) Diabetes mellitus (HCC) Hypertension No current facility-administered medications on file prior to encounter. Current Outpatient Medications on File Prior to Encounter Medication Sig Dispense Refill cetirizine (ZyrTEC) 10 MG tablet 10 mg = 1 tab, PO, Daily, # 30 tab, 3 Refill(s) evolocumab (Repatha SureClick) 140 MG/ML injection 140 mg, SUB-Q, Q14D, # 2 ea, 0 Refill(s), Pharmacy: [facility] [id number], Meds to bed. HVI2, RM#115, 177.8, cm, 08/18/23 8:54:00 CDT, Height, 107.273, kg, 08/18/23 8:54:00 CDT, Weight finasteride (Proscar) 5 MG tablet 5 mg = 1 tab, PO, Daily, # 90 tab, 1 Refill(s) furosemide (Lasix) 40 MG tablet 40 mg = 1 tab, PO, PRN, PRN Edema, # 90 tab, 1 Refill(s) isosorbide mononitrate 20 MG tablet 20 mg = 1 tab, PO, Daily, # 60 tab, 0 Refill(s) losartan (Cozaar) 50 MG tablet Take 50 mg by mouth in the morning and 50 mg in the evening. montelukast (Singulair) 10 MG tablet 10 mg = 1 tab, PO, Bedtime, # 30 tab, 0 Refill(s) NIFEdipine XL (Procardia XL) 30 MG Take 30 mg by mouth 1 time each day. nitroglycerin (Nitrostat) 0.4 MG SL tablet 0.4 mg = 1 tab, SL, Q5Min, PRN chest pain, 0 Refill(s) rivaroxaban (Xarelto) 20 MG tablet 20 mg, PO, QPM, tab, 0 Refill(s) amiodarone (Pacerone) 200 MG tablet Take 100 mg by mouth 1 time each day. aspirin EC 81 MG EC tablet Take 81 mg by mouth 1 time each day. fluticasone (Flonase) 50 MCG/ACT nasal spray 50 microgram = 1 spray, NASAL, Q4H, PRN Congestion, 0 Refill(s) Iczuwbrmikc-Vsnsskdaa-Pvbc nt 100-62.5-25 MCG/ACT aerosol powder Inhale 1 Inhalation 1 time each day. glimepiride (Amaryl) 1 MG tablet 1 mg = 1 tab, PO, Breakfast, # 30 tab, 0 Refill(s) metoprolol succinate XL (Kapspargo) 50 MG 24 hr capsule Take 25 mg by mouth in the morning and 25 mg in the evening. mometasone-formoterol (Dulera 200) 200-5 MCG/ACT inhaler Inhale 2 puffs in the morning and 2 puffs in the evening. Rinse mouth with water after use to reduce aftertaste and incidence of candidiasis. Do not swallow.. tamsulosin (Flomax) 0.4 MG 24 hr capsule 0.4 mg = 1 cap, PO, Daily, # 90 cap, 0 Refill(s) Past Surgical History: Procedure Laterality Date CORONARY STENT PLACEMENT CT ANGIOGRAM HEART CORONARY 01/28/2024 CT HEART - TAVR 01/28/2024 HVI 4 CARDIAC IMU IR ANGIOGRAM ENDOVASCULAR AORTIC REPAIR Social History Socioeconomic History Marital status: Spouse name: Not on file Number of children: Not on file Years of education: Not on file Highest education level: Not on file Occupational History Not on file Tobacco Use Smoking status: Every Day Current packs/day: 1.00 Average packs/day: 1 pack/day for 60.9 years (60.9 ttl pk-yrs) Types: Cigarettes Start date: 1963 Smokeless tobacco: Not on file Substance and Sexual Activity Alcohol use: Not Currently Drug use: Never Sexual activity: Not on file Other Topics Concern Not on file Social History Narrative Not on file Social Drivers of Health Financial Resource Strain: Not on file Food Insecurity: No Food Insecurity (04/02/2024) Hunger Vital Sign Worried About Running Out of Food in the Last Year: Never true Ran Out of Food in the Last Year: Never true Transportation Needs: No Transportation Needs (04/02/2024) PRAPARE - Transportation Lack of Transportation (Medical): No Lack of Transportation (Non-Medical): No Physical Activity: Not on file Stress: Not on file Social Connections: Not on file Intimate Partner Violence: Not At Risk (04/02/2024) Humiliation, Afraid, Rape, and Kick questionnaire Fear of Current or Ex-Partner: No Emotionally Abused: No Physically Abused: No Sexually Abused: No Housing Stability: Low Risk (04/02/2024) Housing Stability Vital Sign Unable to Pay for Housing in the Last Year: No Number of Times Moved in the Last Year: 0 Homeless in the Last Year: No No family history on file. No Known Allergies Objective Vitals: 04/04/24 0500 BP: 142/65 Pulse: 84 Resp: 18 Temp: SpO2: Physical Exam: Vitals and nursing note reviewed. Constitutional: Appearance: Normal appearance. HENT: Head: Normocephalic. Eyes: Pupils: Pupils are equal, round, and reactive to light. Cardiovascular: Rate and Rhythm: Normal rate and regular rhythm. Pulses: Normal pulses. Pulmonary: Effort: Pulmonary effort is normal. No respiratory distress. Abdominal: General: There is no distension. Musculoskeletal: Cervical back: Normal range of motion. Right lower leg: Edema present. Left lower leg: Edema present. Neurological: General: No focal deficit present. Mental Status: He is alert and oriented to person, place, and time. Mental status is at baseline. Psychiatric: Mood and Affect: Mood normal. Thought Content: Thought content normal. Dialysis Access: Intake/Output Summary (Last 24 hours) at 04/04/2024 0719 Last data filed at 04/03/2024 1923 Gross per 24 hour Intake 128.01 ml Output 650 ml Net -521.99 ml Labs Results from last 7 days Lab Units 04/04/24 0631 04/04/24 0010 04/03/24 1910 04/03/24 1141 SODIUM mEq/L -- 141 -- 142 POTASSIUM mEq/L -- 4.4 -- 4.6* CHLORIDE mEq/L -- 116* -- 116* CO2 mEq/L -- 16.1* -- 16.2* BUN mg/dL -- 46* -- 62* CREATININE mg/dL -- 3.43* -- 3.44* CALCIUM mg/dL -- 7.7* -- 8.2* PROTEIN TOTAL g/dL -- -- -- 6.0 BILIRUBIN TOTAL mg/dL -- -- -- 0.52 ALK PHOS U/L -- -- -- 81 ALT U/L -- -- -- 9 AST U/L -- -- -- 11* GLUCOSE mg/dL -- 129* -- 217* POC GLUCOSE mg/dL 119* -- < > -- < > = values in this interval not displayed. Results from last 7 days Lab Units 04/04/24 0010 WBC 10*3/uL 9.43 HEMOGLOBIN g/dL 7.0* HEMATOCRIT % 22.0* PLATELETS 10*3/uL 154* Results from last 7 days Lab Units 04/04/24 0011 UA COLOR Yellow UA GLUCOSE mg/dL 50* UA PROTEIN mg/dL 100* UA KETONES mg/dL Negative UA NITRITE Negative WBC UA /HPF 1 SQUAMOUS EPITHELIAL CELLS /LPF Occasional Results from last 7 days Lab Units 04/03/24 1140 POC PH, ARTERIAL 7.37 POC PCO2, ARTERIAL mmHg 29* POC PO2, ARTERIAL mmHg 98 POC HCO3, ARTERIAL mMol/L 17* POC SO2, ARTERIAL (CALC) % 97.4 POC BASE EXCESS, ARTERIAL mMol/L -8* Cosigned by Josie Arroyo MD at 04/04/2024 8:24 PM HEADER DOCK ER DOCK ER DOCK Associated attestation - Josie Arroyo MD - 04/04/2024 8:24 PM HEADER DOCK Nephrology Attending Note: I saw and evaluated this critically ill patient with complex medical problems; I examined the patient independently, labs/radiographic data and other providers/staff notes reviewed. I agree with the findings and the plan of care as documented in the Renal Fellow/Resident's note. Spoke with the primary team. Questions answered. This result has been reviewed by Josie Arroyo MD, on 04/04/24 at 8:23 PM. Nephrology Physician [facility] 2024-04-03 11:28:00 Spiritual Care Subjective Interventions Relationship Building Interventions: Listened with empathy, Cultivated a relationship of care and support, Provided compassionate presence, Provided hospitality Exploration Interventions: Facilitated storytelling Empowerment Interventions: Provided nail technician teacher education Ritual Interventions: Provided prayer ER DOCK Pastoral Care [facility] 2024-04-03 08:10:38 Associated Order(s): IP CONSULT TO VASCULAR SURGERY Vascular Surgery Consultation Note Reason For Consult Lower extremities wounds History Of Present Illness Frank Shaw is a 74 y.o. male presenting with chest pain and melena for which vascular surgery was consulted for lower extremities wounds, suspected of ischemic origin. Medical history notable for CAD s/p 5 prior stent, paroxysmal a fib on Xarelto, hypertension, NIDDM, hyperlipidemia, aortic stenosis s/p TAVR in 01/26, CKD stage 3, JOSH on CPAP, chronic tobacco use, COPD. Surgical hx notable for prior EVAR in 2011 and recent TAVR. The patient reports that he has had intermittent distal toe wounds over the last few months. He first noticed the few months ago on the left great toe. This wound has since healed. He currently has wounds to right distal big and middle toe that are in the process of healing. He endorses pain associated with wounds and neuropathic pain to bl feet but denies claudication, ischemic rest pain. He is a current smoker. He denies previous vascular interventions to lower extremities. Past Medical History He has a past medical history of Chronic kidney disease, COPD (chronic obstructive pulmonary disease) (HCC), Diabetes mellitus (HCC), and Hypertension. Surgical History He has a past surgical history that includes CT angiogram heart coronary (01/28/2024); IR angiogram endovascular aortic repair; and Coronary stent placement. Social History He reports that he has been smoking cigarettes. He started smoking about 60 years ago. He has a 60.9 pack-year smoking history. He does not have any smokeless tobacco history on file. He reports that he does not currently use alcohol. He reports that he does not use drugs. Allergies Patient has no known allergies. Medications Medications Prior to Admission Medication Sig Dispense Refill Last Dose/Taking cetirizine (ZyrTEC) 10 MG tablet 10 mg = 1 tab, PO, Daily, # 30 tab, 3 Refill(s) 03/31/2024 evolocumab (Repatha SureClick) 140 MG/ML injection 140 mg, SUB-Q, Q14D, # 2 ea, 0 Refill(s), Pharmacy: [facility] [id number], Meds to bed. HVI2, RM#115, 177.8, cm, 08/18/23 8:54:00 CDT, Height, 107.273, kg, 08/18/23 8:54:00 CDT, Weight Past Month finasteride (Proscar) 5 MG tablet 5 mg = 1 tab, PO, Daily, # 90 tab, 1 Refill(s) 03/31/2024 furosemide (Lasix) 40 MG tablet 40 mg = 1 tab, PO, PRN, PRN Edema, # 90 tab, 1 Refill(s) 03/31/2024 isosorbide mononitrate 20 MG tablet 20 mg = 1 tab, PO, Daily, # 60 tab, 0 Refill(s) More than a month losartan (Cozaar) 50 MG tablet Take 50 mg by mouth in the morning and 50 mg in the evening. 03/31/2024 montelukast (Singulair) 10 MG tablet 10 mg = 1 tab, PO, Bedtime, # 30 tab, 0 Refill(s) 04/01/2024 NIFEdipine XL (Procardia XL) 30 MG Take 30 mg by mouth 1 time each day. Taking nitroglycerin (Nitrostat) 0.4 MG SL tablet 0.4 mg = 1 tab, SL, Q5Min, PRN chest pain, 0 Refill(s) 04/01/2024 Morning rivaroxaban (Xarelto) 20 MG tablet 20 mg, PO, QPM, tab, 0 Refill(s) 03/31/2024 amiodarone (Pacerone) 200 MG tablet Take 100 mg by mouth 1 time each day. 03/31/2024 aspirin EC 81 MG EC tablet Take 81 mg by mouth 1 time each day. 03/31/2024 fluticasone (Flonase) 50 MCG/ACT nasal spray 50 microgram = 1 spray, NASAL, Q4H, PRN Congestion, 0 Refill(s) Unknown Mpksbpsojvm-Qmticasja-Kuts nt 100-62.5-25 MCG/ACT aerosol powder Inhale 1 Inhalation 1 time each day. 03/31/2024 glimepiride (Amaryl) 1 MG tablet 1 mg = 1 tab, PO, Breakfast, # 30 tab, 0 Refill(s) 03/31/2024 metoprolol succinate XL (Kapspargo) 50 MG 24 hr capsule Take 25 mg by mouth in the morning and 25 mg in the evening. 03/31/2024 mometasone-formoterol (Dulera 200) 200-5 MCG/ACT inhaler Inhale 2 puffs in the morning and 2 puffs in the evening. Rinse mouth with water after use to reduce aftertaste and incidence of candidiasis. Do not swallow.. 03/31/2024 tamsulosin (Flomax) 0.4 MG 24 hr capsule 0.4 mg = 1 cap, PO, Daily, # 90 cap, 0 Refill(s) 03/31/2024 Review of Systems A 14 points review of system was performed and was negative except for those mentioned in HPI. Physical Exam Gen: well developed, no acute distress HEENT: normocephalic, atraumatic Lungs: unlabored breathing CV: warm extremities Extremities: 2+ L DP, 1+ R DP. 2+ R PT. Healed 3 mm wound on the pad of the L big toe. Ischemic ulcers to R first and middle toe with dry gangrene to the middle toe. Last Recorded Vitals Blood pressure (!) 186/93, pulse 61, temperature 36.8 ?C (98.2 ?F), resp. rate 20, height 1.79 m (5' 10.47"), weight 104 kg (229 lb 4.5 oz), SpO2 97%. Relevant Results CTA CAP 9/25 1. Cardiomegaly with aortic annulus calcifications. Severe atherosclerotic plaque and/or stents in the coronary arteries. 2. Patent distal aortobiiliac stent graft. No endoleak. Decreased size of an excluded aneurysm sac measuring 4.8 x 5.1 x 6.4 cm since 2016. 3. Extensive irregular plaque throughout the aorta. 4. Solid 3.8 cm pancreatic tail lesion is stable since 2016. Recommend further evaluation with magnetic resonance imaging pancreas mass protocol. 5. Small bowel wall thickening within the left hemiabdomen, may represent enteritis. The SMA and distal branches are patent. Low suspicion for ischemia. 6. Bronchitis and emphysematous changes with mediastinal lymphadenopathy. US LE IMPRESSION: 1. RIGHT: Diffuse moderate to severe atherosclerotic plaque with stenosis in the mid SFA and popliteal arteries. Distal posterior tibial and anterior tibial arteries are patent with abnormal waveforms reflecting more proximal obstruction. Could not exclude additional tibial artery stenosis not included on this exam. Aneurysmal dilatation in the distal SFA/proximal popliteal artery measuring 1.7 cm. 2. LEFT: Diffuse moderate to severe atherosclerotic plaque with stenosis in the mid SFA and occlusion of the distal posterior tibial artery. 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 Assessment & Plan Principal Problem: Acute on chronic blood loss anemia Active Problems: CKD (chronic kidney disease) stage 3, GFR 30-59 ml/min ([facility]) Primary hypertension 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 ([facility]) AF (paroxysmal atrial fibrillation) ([facility]/HCC) ([facility]) Chronic bronchitis ([facility]) JOSH on CPAP Diabetes mellitus type 2, controlled ([facility]) S/P TAVR (transcatheter aortic valve replacement) Status post endovascular aneurysm repair (EVAR) GI bleed BPH (benign prostatic hyperplasia) 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 Differentials include diabetic foot wounds, embolic ischemic wounds from popliteal aneurysms, or chronic limb threatening ischemia. The patient's description of the symptoms are inconsistent with chronic limb threatening ischemia with no claudication, or ischemic rest pain. His most recent hemoglobin A1c was 5.56, making it less likely that his wounds are from diabetes. There is no sign of infection at this moment. He endorses previous healing of similar wounds. No concern for threatened limb at this time. Recommendation: - No indicated acute surgical intervention given palpable pulses - Recommend smoking cessation treatment - Start aspirin, statin once cleared from GI bleed standpoint - Recommend podiatry consult for dystrophic nails - Outpatient follow-up with vascular surgery 2 weeks after discharge - Rest of care and treatment of medical comorbidities per primary team Thank you for this consult. Vascular Surgery will sign off. This patient's presentation and plan has been discussed with Dr. Kumar and Dr. De Jesus. Jhonathan Garcia MD Integrated Vascular Surgery PGY1 [facility] Cosigned by Pierre De Jesus MD at 04/04/2024 3:01 PM HEADER DOCK ER DOCK ER DOCK Cardiothoracic Surgery [facility] 2024-04-02 14:18:12 Associated Order(s): IP CONSULT TO GASTROENTEROLOGY Reason For Consult melena History Of Present Illness Frank Shaw is a 74 y.o. male with PMHx of CAD s/p 5 prior stent, paroxysmal a fib on Xarelto, hypertension, diabetes mellitus, hyperlipidemia, aortic stenosis s/p TAVR in 01/26, CKD stage 3, JOSH on CPAP, chronic tobacco use, COPD who presented to OSH with chest pain that had started the evening prior which initially resolved with nitroglycerine and then recurred on 2 subsequent occasions. He was found to be anemia with a hgb of 7.2 at the OSH and guaiac positive stool. He reports that he has had melena for the last few day as well as diarrhea, he denies abdominal pain. Patient was transferred here for higher level of care. On evaluation, patient confirms that he had felt a chest pressure that had initially resolved with nitroglycerin but then returned. He notes that he has had about a week of black stools and diarrhea. Prior to this he denies any history of a GI bleed. He denies nausea, vomiting, abdominal pain. He denies prior EGD and reports he had a colonoscopy years ago, does not remember results. He denies NSAID use. Denies a family history of any GI conditions. Hemoglobin on arrival here was 6.8, down from 13 in 02/01/2024, noted to be macrocytic. He is hemodynamically stable. Past Medical History He has a past medical history of Chronic kidney disease, COPD (chronic obstructive pulmonary disease) (HCC), Diabetes mellitus (HCC), and Hypertension. Surgical History He has a past surgical history that includes CT angiogram heart coronary (01/28/2024); IR angiogram endovascular aortic repair; and Coronary stent placement. Social History He reports that he has been smoking cigarettes. He started smoking about 60 years ago. He has a 60.9 pack-year smoking history. He does not have any smokeless tobacco history on file. He reports that he does not currently use alcohol. He reports that he does not use drugs. Allergies Patient has no known allergies. Medications Medications Prior to Admission Medication Sig Dispense Refill Last Dose/Taking cetirizine (ZyrTEC) 10 MG tablet 10 mg = 1 tab, PO, Daily, # 30 tab, 3 Refill(s) 03/31/2024 evolocumab (Repatha SureClick) 140 MG/ML injection 140 mg, SUB-Q, Q14D, # 2 ea, 0 Refill(s), Pharmacy: [facility], Meds to bed. HVI2, RM#115, 177.8, cm, 08/18/23 8:54:00 CDT, Height, 107.273, kg, 08/18/23 8:54:00 CDT, Weight Past Month finasteride (Proscar) 5 MG tablet 5 mg = 1 tab, PO, Daily, # 90 tab, 1 Refill(s) 03/31/2024 furosemide (Lasix) 40 MG tablet 40 mg = 1 tab, PO, PRN, PRN Edema, # 90 tab, 1 Refill(s) 03/31/2024 isosorbide mononitrate 20 MG tablet 20 mg = 1 tab, PO, Daily, # 60 tab, 0 Refill(s) More than a month losartan (Cozaar) 50 MG tablet Take 50 mg by mouth in the morning and 50 mg in the evening. 03/31/2024 montelukast (Singulair) 10 MG tablet 10 mg = 1 tab, PO, Bedtime, # 30 tab, 0 Refill(s) 04/01/2024 NIFEdipine XL (Procardia XL) 30 MG Take 30 mg by mouth 1 time each day. Taking nitroglycerin (Nitrostat) 0.4 MG SL tablet 0.4 mg = 1 tab, SL, Q5Min, PRN chest pain, 0 Refill(s) 04/01/2024 Morning rivaroxaban (Xarelto) 20 MG tablet 20 mg, PO, QPM, tab, 0 Refill(s) 03/31/2024 amiodarone (Pacerone) 200 MG tablet Take 100 mg by mouth 1 time each day. 03/31/2024 aspirin EC 81 MG EC tablet Take 81 mg by mouth 1 time each day. 03/31/2024 fluticasone (Flonase) 50 MCG/ACT nasal spray 50 microgram = 1 spray, NASAL, Q4H, PRN Congestion, 0 Refill(s) Unknown Xdoihmgvwup-Byfogujqz-Nxdt nt 100-62.5-25 MCG/ACT aerosol powder Inhale 1 Inhalation 1 time each day. 03/31/2024 glimepiride (Amaryl) 1 MG tablet 1 mg = 1 tab, PO, Breakfast, # 30 tab, 0 Refill(s) 03/31/2024 metoprolol succinate XL (Kapspargo) 50 MG 24 hr capsule Take 25 mg by mouth in the morning and 25 mg in the evening. 03/31/2024 mometasone-formoterol (Dulera 200) 200-5 MCG/ACT inhaler Inhale 2 puffs in the morning and 2 puffs in the evening. Rinse mouth with water after use to reduce aftertaste and incidence of candidiasis. Do not swallow.. 03/31/2024 tamsulosin (Flomax) 0.4 MG 24 hr capsule 0.4 mg = 1 cap, PO, Daily, # 90 cap, 0 Refill(s) 03/31/2024 Review of Systems GEN: Denies fever, chills, night sweats, and fatigue. HEENT: Denies headache, blurry vision, hearing changes and sore throat. RESP: Denies shortness of breath and cough. CV: Denies chest pain, edema and palpitations. GI: as per HPI. : Denies any hematuria, dysuria, and increased urgency. EXT: Denies joint pain, swelling or cyanosis. SKIN: Negative for rashes, jaundice or itching. NEURO: Negative for new weakness. MUSC: Negative for recent fractures. ENDOCRINE: Negative for heat or cold intolerance. PSYCH: Denies insomnia, anxiety and depression. Physical Exam General: Awake, alert, no apparent distress Skin: No rashes, normal appearance for race Head: Normocephalic, atraumatic Eyes: Conjunctivae clear, EOMI bilaterally Neck: Normal ROM Lungs: Normal respiratory effort, no wheezing Abdomen: Non-tender, soft, non-distended Extremities: No gross deformities Neurologic: Cranial nerves grossly intact, mental status normal Psych: Normal mood and affect Last Recorded Vitals Blood pressure 148/73, pulse 59, temperature 36.5 ?C (97.7 ?F), resp. rate 16, height 1.79 m (5' 10.47"), weight 104 kg (229 lb 4.5 oz), SpO2 96%. 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) Macrocytic anemia Melena -Patient presenting with 1 week of melenic stools in the setting of decreased hemoglobin to 6.8, down from baseline of 13, and blood thinner use -Currently, he is hemodynamically stable and pending blood transfusion -Continue PPI IV twice daily -Recommend additional anemia workup -No history of cirrhosis, can discontinue octreotide and ceftriaxone -Transfuse to maintain hgb >7 -Plan for push endoscopy on 04/05/24; keep NPO after midnight 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 Savage. Nadja Lazcano MD Gastroenterology & Hepatology PGY-4 [facility] [place] Cosigned by Dahiana Savage MD at 04/03/2024 3:37 PM HEADER DOCK ER DOCK ER DOCK Associated attestation - Dahiana Savage MD - 04/03/2024 3:37 PM HEADER DOCK GI Attending Attestation: I discussed this patient on rounds with the GI team on 04/02/2024. I agree with the assessment and plan, and I have personally reviewed the current lab, radiology, and endoscopy results. The above plan was discussed and supplemented with additional information as needed. Medical decision making complexity is high with at least 2 out of 3 high complexity categories of problems/data review or assessment/risk. Dahiana Savage MD [employer] Division of Gastroenterology, Hepatology, & Nutrition [facility] History and Physical Notes Date/Time Note Provider Source 2024-05-12 00:19:03 [facility] ([facility]) Integrated Hospital Medicine Program Patient:Frnak Shaw PCP:Alireza Gomez MD Date:1950 Admission Date:05/11/2024 Attending:Zaki Pollard MD;Shaniqua Bridges MD LOS: 0days CODE Status: Full Code Chief Complaint CC: Chief Complaint Patient presents with Shortness of Breath Cough Cough and SOB x 1 week. Weakness, Gen Cough and SOB x 1 week. Been using CPAP machine at home. No )2 at home. Reports spitting blood although daughter refutes that report. Increasing weakness prompted ED visit. HPI Frank Shaw is a 74 y.o. male with PMH significant for DM, CAD s/p PCI, heart failure with recovered EF, A Fib on Xarelto, JOSH on CPAP, CKD4, chronic anemia presented to the hospital with worsening sob requiring CPAP all day since since discharge on 04/27/24. Pt reports increasing cough, sob and BLE edema, no chest pain, fever, chills or sick contact. Pt also noted one episode of rectal bleed on , no further bleed since the. Pt wear CPAP constantly at home and complain of weakness, bloating and decreased appetite. Pt initially on vapotherm 70%FiO2 15L in ED, able to wean down to 11L HFNC at time of my eval, no respiratory distress. Daughter at bedside, reports compliance with meds. Review of Systems ROS negative unless BOLD Constitutional: fever, chills, unintentional weight loss HEENT: cough, congestion, sore throat. Respiratory: chest tightness, shortness of breath and wheezing. Cardiovascular: chest pain, palpitations and leg swelling. Gastrointestinal: abdominal pain, blood in stool, constipation, diarrhea, nausea and vomiting. Endocrine: cold intolerance and heat intolerance. Genitourinary: flank pain, dysuria, frequency, hematuria and urgency. Musculoskeletal: arthralgias, joint swelling and neck pain. Skin: rash and wound. Neurological: dizziness, seizures, syncope, weakness, numbness and headaches. Past Medical History : He has a past medical history of Chronic kidney disease, COPD (chronic obstructive pulmonary disease) (HCC), Diabetes mellitus (HCC), and Hypertension. Past Surgical History : He has a past surgical history that includes CT angiogram heart coronary (01/28/2024); IR angiogram endovascular aortic repair; and Coronary stent placement. Medications: cefepime, 1 g, Intravenous, Once PRN medications: ipratropium-albuterol Allergies: No Known Allergies Social History: He reports that he has been smoking cigarettes. He started smoking about 61 years ago. He has a 61 pack-year smoking history. He does not have any smokeless tobacco history on file. He reports that he does not currently use alcohol. He reports that he does not use drugs. PRIMARY CARE PROVIDER: Alireza Gomez MD Family History: No family history on file. Physical Exam: Visit Vitals BP (!) 118/55 (BP Location: Left arm) Pulse 73 Temp 36.7 ?C (98.1 ?F) (Oral) Resp (!) 23 Ht 1.778 m (5' 10") Wt 99.8 kg (220 lb) SpO2 92% BMI 31.57 kg/m? Smoking Status Every Day BSA 2.22 m? Physical Exam: General: Alert and oriented x3, not in acute distress HEENT: Bilateral pupils are equal and reactive to light. Mucus membranes moist; neck supple Cardiovascular: S1 & S2, RRR, No JVD Respiratory: decreased breath sounds, diffuse crackles, No wheezing Abdominal: Distended, Soft, Non-tendered, BS present Extremities: No clubbing, No cyanosis, 2+ edema Skin: Dry, No bleeding, No rash Neuro: No focal deficits, alert and oriented Psych: Cooperative, Mood normal. Labs & Imaging: LABORATORY DATA: Results from last 7 days Lab Units 05/11/24 2048 SODIUM mEq/L 143 POTASSIUM mEq/L 3.5 CHLORIDE mEq/L 106 CO2 mEq/L 23.4 BUN mg/dL 48* CREATININE mg/dL 3.83* GLUCOSE mg/dL 142* CALCIUM mg/dL 8.9 Results from last 7 days Lab Units 05/11/24 2048 WBC 10*3/uL 10.61* HEMOGLOBIN g/dL 8.8* HEMATOCRIT % 28.3* PLATELETS 10*3/uL 229 Results from last 7 days Lab Units 05/11/24 2048 ALT U/L 13 AST U/L 16 ALK PHOS U/L 106 BILIRUBIN TOTAL mg/dL 0.85 RADIOLOGY DATA: CT CHEST WO IV CONTRAST Final Result 1. Extensive patchy bilateral pulmonary infiltrates in diffuse ground-glass opacities. The findings may indicate edema and/or pneumonia. There is moderate cardiomegaly. The chest radiograph demonstrates pulmonary vascular congestion. Overall, the findings are suggestive of congestive failure with pulmonary edema and it is possible superimposed pneumonia. 2. Large left pleural effusion and moderate right pleural effusion. There is extensive bibasilar atelectasis. 3. Atherosclerosis including extensive coronary artery calcifications. 4. Soren type aortic valve is noted. 5. Abdominal aortic stent graft is partially visualized. 6. The kidneys which are incompletely visualized appear to be small in size. Suspect chronic renal disease. Please correlate with clinical information. 7. Bilateral renal cyst partially visualized on this study. ELECTRONICALLY SIGNED BY ALEJANDRA PATTON MD ON 05/11/2024 AT 23:36. XR chest 1 view Final Result 1. Findings concerning for pulmonary vascular congestion and interstitial edema. 2. Bilateral moderate pleural effusions with bilateral airspace disease. ELECTRONICALLY SIGNED BY JOEY CORRAL MD ON 05/11/2024 AT 20:40. Assessment & Plan: Assessment & Plan Acute hypoxic respiratory failure (HCC) - on 11L HFNC at time of eval, volume overload on exam, diffuse crackles, lower extremity edema - diuresis, duo neb, wean oxygen as tolerated - covid, flu negative, s/p cefepime in ED, pending procal AF (paroxysmal atrial fibrillation) ([facility]) ([facility]) - continue amio, coreg, xarelto - Tele monitor JOSH on CPAP - CPAP at night Diabetes mellitus type 2, controlled ([facility]) - low dose ISS S/P TAVR (transcatheter aortic valve replacement) Status post endovascular aneurysm repair ([facility]) Stage 4 chronic kidney disease ([facility]) ([facility]) - Cr 3.83, around baseline, cautious with diuresis, monitor - renal dose medication, avoid nephrotoxins Normocytic anemia - Hgb 8.8 improved since discharge, reports one episode of rectal bleeding on , in the setting of constipation - hgb stable, will continue with Xarelto and monitor - PPI for GI ppx Acute on chronic diastolic heart failure ([facility]) ([facility]) - s/p lasix 40mg IV in ED, volume overload on exam, bilateral pleural effusion on CT - continue with diuresis, continue coreg, strict in and out, fluid restriction - will hold imdur and hydralazine due to soft BP - last TTE in Apr 27 with recovered EF - consider IR thora if no significant improvement on oxygen requirement DVT prophylaxis: Xarelto Full Code Disposition Anticipated: HOme Inpatient Expected LOS > 2MN Shaniqua Bridges MD Hospital Medicine [facility] 2024-04-02 09:17:46 Subjective No chief complaint on file. Chest pain and melena History Of Present Illness Frank Shaw is a 74 y.o. male with PMHx of CAD s/p 5 prior stent, paroxysmal a fib on Xarelto, hypertension, diabetes mellitus, hyperlipidemia, aortic stenosis s/p TAVR in 01/26, CKD stage 3, JOSH on CPAP, chronic tobacco use, COPD who presented to OSH with chest pain that had started the evening prior which initially resolved with nitroglycerine and then recurred on 2 subsequent occasions. He was found to be anemia with a hgb of 7.2 at the OSH and guaiac positive stool. He reports that he has had melena for the last few day as well as diarrhea, he denies abdominal pain. He did not realize what the dark stools were at first. He reports that the chest pain felt like a pressure. When he woke on morning and the pain was still present he presented to the ED. He endorse some shortness of breath and had recent dizziness, however, he did present to the ED with dizziness last week and was treated for hypoglycemia. He denies nausea, vomiting, constipation, abdominal pain, denies fever, chills, chest pain at this time. Past Medical History He has a past medical history of Chronic kidney disease, COPD (chronic obstructive pulmonary disease) (HCC), Diabetes mellitus (HCC), and Hypertension. Surgical History He has a past surgical history that includes CT angiogram heart coronary (01/28/2024); IR angiogram endovascular aortic repair; and Coronary stent placement. Family History No family history on file. Social History He reports that he has been smoking cigarettes. He started smoking about 60 years ago. He has a 60.9 pack-year smoking history. He does not have any smokeless tobacco history on file. He reports that he does not currently use alcohol. He reports that he does not use drugs. Allergies Patient has no allergy information on record. Medications Medications Prior to Admission Medication Sig Dispense Refill Last Dose/Taking cetirizine (ZyrTEC) 10 MG tablet 10 mg = 1 tab, PO, Daily, # 30 tab, 3 Refill(s) 03/31/2024 evolocumab (Repatha SureClick) 140 MG/ML injection 140 mg, SUB-Q, Q14D, # 2 ea, 0 Refill(s), Pharmacy: [id number], Meds to bed. HVI2, RM#115, 177.8, cm, 08/18/23 8:54:00 CDT, Height, 107.273, kg, 08/18/23 8:54:00 CDT, Weight Past Month finasteride (Proscar) 5 MG tablet 5 mg = 1 tab, PO, Daily, # 90 tab, 1 Refill(s) 03/31/2024 furosemide (Lasix) 40 MG tablet 40 mg = 1 tab, PO, PRN, PRN Edema, # 90 tab, 1 Refill(s) 03/31/2024 isosorbide mononitrate 20 MG tablet 20 mg = 1 tab, PO, Daily, # 60 tab, 0 Refill(s) More than a month losartan (Cozaar) 50 MG tablet Take 50 mg by mouth in the morning and 50 mg in the evening. 03/31/2024 montelukast (Singulair) 10 MG tablet 10 mg = 1 tab, PO, Bedtime, # 30 tab, 0 Refill(s) 04/01/2024 NIFEdipine XL (Procardia XL) 30 MG Take 30 mg by mouth 1 time each day. Taking nitroglycerin (Nitrostat) 0.4 MG SL tablet 0.4 mg = 1 tab, SL, Q5Min, PRN chest pain, 0 Refill(s) 04/01/2024 Morning rivaroxaban (Xarelto) 20 MG tablet 20 mg, PO, QPM, tab, 0 Refill(s) 03/31/2024 amiodarone (Pacerone) 200 MG tablet Take 100 mg by mouth 1 time each day. 03/31/2024 aspirin EC 81 MG EC tablet Take 81 mg by mouth 1 time each day. 03/31/2024 fluticasone (Flonase) 50 MCG/ACT nasal spray 50 microgram = 1 spray, NASAL, Q4H, PRN Congestion, 0 Refill(s) Unknown Qokuwfwogsb-Whyxzbwai-Noqqfr 100-62.5-25 MCG/ACT aerosol powder Inhale 1 Inhalation 1 time each day. 03/31/2024 glimepiride (Amaryl) 1 MG tablet 1 mg = 1 tab, PO, Breakfast, # 30 tab, 0 Refill(s) 03/31/2024 metoprolol succinate XL (Kapspargo) 50 MG 24 hr capsule Take 25 mg by mouth in the morning and 25 mg in the evening. 03/31/2024 mometasone-formoterol (Dulera 200) 200-5 MCG/ACT inhaler Inhale 2 puffs in the morning and 2 puffs in the evening. Rinse mouth with water after use to reduce aftertaste and incidence of candidiasis. Do not swallow.. 03/31/2024 tamsulosin (Flomax) 0.4 MG 24 hr capsule 0.4 mg = 1 cap, PO, Daily, # 90 cap, 0 Refill(s) 03/31/2024 Review of Systems Constitutional: Negative for appetite change, chills, fatigue, fever and unexpected weight change. He reports recent intentional weight loss HENT: Positive for sore throat (due to allergies). Negative for mouth sores, nosebleeds and rhinorrhea. Eyes: Negative for visual disturbance. Reports left eye cataract Respiratory: Positive for cough and shortness of breath. Negative for chest tightness and wheezing. Cardiovascular: Positive for chest pain. Negative for palpitations and leg swelling. Gastrointestinal: Positive for blood in stool and diarrhea. Negative for abdominal pain, constipation, nausea and vomiting. Endocrine: Negative for polydipsia and polyphagia. Genitourinary: Negative for dysuria, frequency, hematuria and urgency. Musculoskeletal: Positive for arthralgias and back pain. Negative for joint swelling, myalgias, neck pain and neck stiffness. Skin: Negative for rash and wound. Reports toenail fungus and a dark rash on his toes. Neurological: Positive for dizziness. Negative for seizures, syncope, facial asymmetry, speech difficulty, numbness and headaches. Hematological: Does not bruise/bleed easily. Psychiatric/Behavioral: The patient is not nervous/anxious. Objective Last Recorded Vitals Blood pressure 154/72, pulse 60, temperature 36.5 ?C (97.7 ?F), resp. rate 18, SpO2 98%. Physical Exam: Constitutional: General: He is not in acute distress. Appearance: Normal appearance. He is not ill-appearing or diaphoretic. HENT: Head: Normocephalic and atraumatic. Nose: Nose normal. Mouth/Throat: Mouth: Mucous membranes are moist. Pharynx: Oropharynx is clear. No posterior oropharyngeal erythema. Eyes: Extraocular Movements: Extraocular movements intact. Conjunctiva/sclera: Conjunctivae normal. Cardiovascular: Rate and Rhythm: Normal rate and regular rhythm. Pulses: Normal pulses. Heart sounds: No murmur heard. No gallop. Pulmonary: Effort: No respiratory distress. Breath sounds: No wheezing, rhonchi or rales. Abdominal: General: Abdomen is flat. Bowel sounds are normal. There is no distension. Palpations: Abdomen is soft. Tenderness: There is no abdominal tenderness. There is no guarding. Musculoskeletal: Cervical back: No tenderness. Right lower leg: No edema. Left lower leg: No edema. Lymphadenopathy: Cervical: No cervical adenopathy. Skin: General: Skin is warm and dry. Capillary Refill: Capillary refill takes less than 2 seconds. Coloration: Skin is not jaundiced or pale. Findings: No lesion or rash. Comments: Bilateral 3rd toes blue in color, ulceration at the toenail on the right 3rd toe, tinea unguium bilaterally Neurological: General: No focal deficit present. Mental Status: He is alert and oriented to person, place, and time. Cranial Nerves: No cranial nerve deficit. Motor: No weakness. Psychiatric: Mood and Affect: Mood normal. Behavior: Behavior normal. Lab Results Results from last 7 days Lab Units 04/02/24 1003 SODIUM mEq/L 145 POTASSIUM mEq/L 4.9* CHLORIDE mEq/L 119* CO2 mEq/L 18.1* BUN mg/dL 68* CREATININE mg/dL 3.28* GLUCOSE mg/dL 139* CALCIUM mg/dL 7.6* Lab Results Component Value Date WBC 10.49 (H) 04/02/2024 Hgb 6.8 (LL) 04/02/2024 Hct 21.6 (L) 04/02/2024 MCV 106.9 (H) 04/02/2024 Plt Count 160 04/02/2024 Imaging Results ABIs pending Assessment Frank Shaw is a 74 y.o. male with PMHx of CAD s/p 5 prior stent, paroxysmal a fib on Xarelto, hypertension, diabetes mellitus, hyperlipidemia, aortic stenosis s/p TAVR in 01/26, CKD stage 3, JOSH on CPAP, chronic tobacco use, COPD who presented to OSH with chest pain and melena. Transferred for evaluation by GI. Assessment & Plan Acute on chronic blood loss anemia Hemoglobin 7.2 at the OSH, GI consulted, NPO for now Received 2 units PRBCs at the OSH, will repeat stat CBC, trend hgb Will start Protonix IV BID. 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 Will order ABIs, plan to consult vascular surgery when results are ready. CKD (chronic kidney disease) stage 3, GFR 30-59 ml/min (HCC) Known CKD stage 3, followed by Dr. Mendoza, labs pending Primary hypertension Recent significantly elevated BP since TAVR, he is on Metoprolol XL 25 mg BID and Losartan 50 mg BID, he has not been able to start isosorbide mononitrate which was prescribed in January as it is on back order and Nifedipine 30 mg at bedtime was just prescribed but not started. Hold off on antihypertensives for now given GI bleeding. 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 (HCC) [address], holding aspirin due to GI bleeding, takes repatha for lipids, on metoprolol and losartan for BP as of now but has been prescribed isosorbide mononitrate Continue as needed NTG Hold antihypertensives for now given GI bleeding AF (paroxysmal atrial fibrillation) (CMS/HCC) (HCC) On amiodarone 100 mg daily, continue Hold Xarelto Chronic bronchitis ([facility]) Resume home trelegy daily and dulera BID, daughter is to bring from home No acute exacerbation Pt counseled on tobacco cessation JOSH on CPAP Use supplemental O2 while sleeping, monitor, daughter bringing CPAP Diabetes mellitus type 2, controlled ([facility]) On glimepiride at home,, hold for now, started SSI S/P TAVR (transcatheter aortic valve replacement) S/p TAVR in 01/26 Status post endovascular aneurysm repair ([facility]) In 2011 BPH (benign prostatic hyperplasia) Resume home finasteride and tamsulosin Acute kidney injury (HCC) Creatinine significantly worsened from baseline, now 3.28, suspect may be related to GI bleeding, repeat BMP after transfusion, obtain renal US for further evaluation as well. Followed up on GI recs, discontinue octreotide and rocephin. Plan for push endoscopy in Friday, will give a diet for now, NPO p MN on Friday for procedure Friday. Will continue to trend hgb. VTE prophylaxis: Holding xarelto in setting of melena, place SCDs Disposition: Admit to 3 joyce for GI evaluation, plan on home on DC when medically ready, anticipate 3 MN. ER D[facility] Procedure Notes Date/Time Note Provider Source 2024-04-05 17:04:39 [facility] ENDOSCOPY LAB BRIEF POSTOP NOTE Please refer to EPIC procedure note (under "Chart review: Procedures tab") for full narrative Procedure: Push enteroscopy Pre-Op Diagnosis: GI bleed Post-Op Diagnosis: Hiatal hernia, gastric nodule, gastric and duodenal erosions Endoscopist: Dr. Galindo Scaffold Setter/Fellow/Resident(s): Dr. Veliz Sedation: anesthesia EBL: minimal Specimens: yes Grafts and Implants: None Complications: no Brief findings: Impression 2 cm hiatal hernia Mild edematous, erythematous, friable mucosa in the stomach and duodenum Single small nodule was visualized in the body of the stomach; performed cold forceps biopsy Recommendations: - No overt/ active bleed observed - Will benefit from colonoscopy later during hospital course once patient clinically stable - Await biopsy results - This is a brief note used for immediate communication. See complete procedure note for full details in the 'chart review' section, under the 'procedures' tab. The note will generally be available within 24 hours. Please page GI fellow correctional maintenance technician with questions or concerns. [facility]
[2024-06-07] MEDS ORDERED: ONDANSETRON 4 MG/2 ML VIAL ONE ×2 (05:11→05:13)
[2024-06-07] MEDS ORDERED: NA CHLORIDE 0.9% 1,000 ML ONE (05:11)
[2024-06-07 05:13] LABS: Absolute Basophils 0.2 K/uL (0-0.5); Absolute Eosinophils 0.6 K/uL (0-0.5); Absolute Lymphocytes (CBC) 1.5 K/uL (0.7-4.9); Absolute Monocytes 0.8 K/uL (0.1-1.3); Absolute Neutrophil 10.9 K/uL (1.8-8.0); Basophils % 1.3 % (0-1.3); Eosinophils % 4.1 % (0-4.4); Hematocrit 29.2 % (39.6-49.0); Hemoglobin 9.6 g/dL (13.6-17.9); Lymphocytes % 10.6 % (15.3-44.8); MCH 28.6 pg (27.0-35.0); MCHC 32.9 g/dL (32.0-36.0); MCV 87.1 fL (80-100); MPV 8.5 fL (7.6-11.3); Monocytes % 5.4 % (3.3-12.3); Neutrophils % 78.6 % (41.7-73.7); Platelets 304 thou/uL (152-406); RBC Red Blood Cell Count 3.35 M/uL (4.33-5.43); Red Cell Distribution Width 18.3 % (12.1-15.2)
[2024-06-07 05:21] LABS: Arterial Blood Carboxyhemoglob 1.7 % (0-1.5); Blood Gas Oxyhemoglobin 95.6 % (94-97); Blood Gas THB 9.6 g/dl (12-18); Blood O2 Saturation 99.3 % (92-98.5)
[2024-06-07] MEDS ORDERED: ALBUTEROL 2.5 MG/3 ML NEB SOL ONE (05:33)
[2024-06-07] MEDS ORDERED: IPRATROPIUM BROM 0.5MG/2.5ML ONE (05:33)
[2024-06-07] MEDS ORDERED: NA CHLORIDE 0.9% 500 ML ONE (05:34)
[2024-06-07] MEDS ORDERED: CEFEPIME 2 GM VIAL ONE (05:34)
[2024-06-07] MEDS ORDERED: METHYLPREDNISOLONE 125 MG INJ ONE (05:34)
[2024-06-07] MEDS ORDERED: VANCOMYCIN 1 GM/VIAL ONE (05:34)
[2024-06-07] MEDS ORDERED: NA CHLORIDE 0.9% 100 ML ONE (05:35)
[2024-06-07 05:52] LABS: PT Prothrombin Time 34.7 SECONDS (9.4-12.5); PTT, Activated Partial Thromb 42.2 SECONDS (24.3-36.9); Protime INR 3.34
[2024-06-07 06:34] LABS: Albumin 2.9 g/dL (3.4-5.0); Albumin/Globulin Ratio 0.7 (1.1-1.8); Alkaline Phosphatase 105 U/L (45-117); Anion Gap 12.3 mEq/L (5.0-15.0); BUN Blood Urea Nitrogen 47 mg/dL (7-18); Bicarbonate 23 mEq/L (21-32); Bilirubin Total 0.7 mg/dL (0.2-1.0); Globulin 4.1 g/dL (2.3-3.5); Glomerular Filtration Rate 18 ml/min (=/>90); Glucose Level 201 mg/dL (74-106); Potassium 3.3 mEq/L (3.5-5.1); Sodium Level 136 mEq/L (136-145)
[2024-06-07 06:35] LABS: ALT/SGPT < 14 U/L (16-61); AST/SGOT < 10 U/L (15-37)
[2024-06-07] MEDS ORDERED: MORPHINE 4 MG/ML SYR ONE (06:44)
--- NOTE | 2024-06-07 06:51 | RAD REPORT ---
CLINICAL HISTORY: Central line placement. COMPARISON: XR Chest 05/13/2024. TECHNIQUE: XR CHEST 1 VIEW 06/07/2024 12:00 AM [facility] [employer] [facility] FINDINGS: The heart is enlarged. There is extensive airspace disease and interstitial prominence diffusely thro ughout both lungs. There are probable pleural effusions. There is no pneumothorax. There are no acute osseous findings. Right IJ central line tip is in the upper SVC. IMPRESSION: Significantly worsening aeration of the lungs. No pneumothorax following right IJ central line placement. Electronically signed by: Ramana Conklin MD 06/07/2024 06:48 AM [facility] [facility] [employer] [facility] RP Due to temporary technical issues with the [employer] reporting system, reports are being nelida d by the in-house radiologist without review as a courtesy to ensure prompt reporting the interpreting radiologist is fully responsible for the content of the report. Transcribed Date/Time: 06/07/2024 6:50 AM
[2024-06-07 07:13] LABS: SARS-CoV-2 Antigen CONTROL BLUE LINE VIS/BG OK; SARS-CoV-2 Antigen Rapid Res Negative (Negative)
[2024-06-07] MEDS ORDERED: FUROSEMIDE 100 MG/10 ML VIAL IV ONE (07:21)
--- NOTE | 2024-06-07 07:24 | EDPHYS ---
Physician Documentation [facility] Name: Frank Shaw Age: 74 yrs Sex: Male : 1950 Arrival Date: 06/07/2024 Time: 04:38 Bed 3 Private MD: ED Physician Pavel Moser HPI: 06/07 04:52 This 74 yrs old Male presents to ER via EMS with complaints of Respiratory sp4 Distress. 06:34 74-year-old male senior living patient presents with acute respiratory distress. . sp4 07:03 Patient presents from [facility] for custodial facility patient of sp4 Dr. Wheeler . . 07:11 Patient has history of diastolic heart failure, chronic kidney disease stage IV, sp4 positive for hypertension, GERD, mobility problem, paroxysmal atrial fibrillation, pneumonia, protein calorie malnutrition, COPD, dysphagia, anticoagulant use, nicotine dependence, pleural effusion, type 2 diabetes, viral pneumonia. Patient's medications include multivitamins, zinc, protein supplementation, sorbic acid, nicotine patch, Flomax, montelukast, Xarelto 15 mg daily, cetirizine 10 mg daily, hydralazine 100 mg 3 times a day, isosorbide dinitrate 10 mg 3 times a day, Bumex 1 mg twice a day, carvedilol 12-1/2 twice daily, nifedipine extended release, finasteride daily, amiodarone 100 mg once a day, Protonix 40 mg daily, fluticasone daily, nitroglycerin as needed.. Historical: - Allergies: 04:47 Methocarbamol; bm8 04:47 Robaxin; bm8 04:47 statins; bm8 - PMHx: 04:47 Hearing Loss with hearing aids; diabetes mellitus; Left lung Pneumothorax; Hernia; TIA; bm8 Sleep Apnea; Renal Disease; Myocardial infarction; Hypertensive disorder; CVA; COPD; CHF; Atrial fibrillation; - PSHx: 04:47 back sx; Heart Stents; bm8 - Immunization history:: Adult Immunizations up to date. - Infectious Disease History:: Denies. - Family history:: not pertinent. - Social history:: Smoking status: Patient reports the use of cigarette tobacco products, unknown. ROS: 07:11 Constitutional: Negative for fever, chills, and weight loss, positive for respiratory sp4 distress and shortness of breath 07:11 All other systems are negative, Exam: 07:11 Constitutional: This is a well developed, physically debilitated male, with urinary sp4 incontinence, moderate to severe respiratory distress, tachypnea dyspnea bilateral crackles. Pale appearing and hypoxemic on arrival saturation in the 70s. Head/Face: Normocephalic, atraumatic. Eyes: Pupils equal round and reactive to light, extra-ocular motions intact. Lids and lashes normal. Conjunctiva and sclera are not injected. Cornea within normal limits. Periorbital areas with no swelling, redness, or edema. ENT: Nares patent. No nasal discharge, no septal abnormalities noted. Tympanic membranes are normal and external auditory canals are clear. Oropharynx with no redness, swelling, or masses, exudates, or evidence of obstruction, uvula midline. Mucous membranes moist. Neck: Trachea midline, no thyromegaly or masses palpated, and no cervical lymphadenopathy. Supple, full range of motion without nuchal rigidity, or vertebral point tenderness. Chest/axilla: Normal chest wall appearance and motion. Nontender with no deformity. No lesions are appreciated. Cardiovascular: Regular rate and rhythm with a normal S1 and S2. No gallops, murmurs, or rubs. Normal PMI, no JVD. No pulse deficits. Respiratory: Lungs have equal breath sounds bilaterally, bilateral crackles, dyspnea, tachypnea, respiratory distress, retractions bilaterally Abdomen/GI: Soft, with normal bowel sounds. No distension or tympany. No guarding or rebound. No evidence of tenderness throughout. Back: No spinal tenderness. No costovertebral tenderness. Male : Normal genitalia with no discharge or lesions. Incontinent of urine, circumcised male Skin: Warm, dry with normal turgor. Normal color with no rashes, no lesions, and no evidence of cellulitis. MS/ Extremity: Pulses equal, no cyanosis. Neurovascular intact. Full, normal range of motion. Neuro: Awake and alert, GCS 15, oriented to person exam limited secondary to severe respiratory distress, grossly no focal neurologic deficits 07:11 ECG was reviewed by the Attending Physician. EKG at 0 454 normal sinus rhythm rate 100 occasional PVCs, prolonged QT. Vital Signs: 04:40 Pulse 105; Resp 32; Pulse Ox 78% on Non-rebreather mask; bm8 04:46 BP 160 / 73; Pulse 103; Resp 30; Temp 97; Pulse Ox 100% on 100 lpm BiPAP; Weight 117.93 bm8 kg; Height 5 ft. 11 in. ; Pain 0/10; 04:52 BP 160 / 73; bm8 04:53 Pulse Ox 100% on BiPAP; FiO2 100 %; bm8 04:56 Pulse Ox 80% on BiPAP; FiO2 100 %; bm8 04:56 Pulse Ox 100% on BiPAP; FiO2 100 %; bm8 04:56 BP 150 / 74; Pulse 93; Resp 30; Pulse Ox 100% on BiPAP; FiO2 100 %; bm8 05:53 BP 144 / 74; Pulse 85; Resp 21; Temp 97; Pulse Ox 100% ; Pain 4/10; bm8 06:52 BP 155 / 73; Pulse 81; Resp 19; Temp 97; Pulse Ox 94% on BiPAP; FiO2 50 %; Pain 0/10; bm8 04:46 Body Mass Index 36.26 (117.93 kg, 180.34 cm) bm8 04:46 Pain Scale: Adult bm8 05:53 Pain Scale: Adult bm8 06:52 Pain Scale: Adult bm8 04:56 Dr. Moser notified of decrease in O2 saturation. bm8 04:56 O2 Saturation returned to 100% after BIPAP adjustment bm8 Faith Coma Score: 05:53 Eye Response: spontaneous(4). Motor Response: obeys commands(6). Verbal Response: bm8 oriented(5). Total: 15. 06:52 Eye Response: spontaneous(4). Motor Response: obeys commands(6). Verbal Response: bm8 oriented(5). Total: 15. 07:11 Eye Response: spontaneous(4). Motor Response: obeys commands(6). Verbal Response: sp4 oriented(5). Total: 15. Procedures: 05:43 Central Line: the site was prepped with Betadine, in sterile fashion, a triple lumen sp4 catheter was inserted, in the right internal jugular vein, in 1 attempts. placement was verified, by CXR, by blood return, Ultrasound-guided central line, the site was dressed with 4X4s, Tegaderm, using sterile technique, the patient tolerated the procedure, well, Ultrasound-guided central line placed for resuscitation. MDM: 04:58 Medical Screening Exam initiated sp4 07:10 ED course: CLINICAL HISTORY: Central line placement. COMPARISON: XR Chest 05/13/2024. sp4 TECHNIQUE: XR CHEST 1 VIEW 06/07/2024 12:00 AM [facility] FINDINGS: The heart is enlarged. There is extensive airspace disease and interstitial prominence diffusely throughout both lungs. There are probable pleural effusions. There is no pneumothorax. There are no acute osseous findings. Right IJ central line tip is in the upper SVC. IMPRESSION: Significantly worsening aeration of the lungs. No pneumothorax following right IJ central line placement. Electronically signed by: Ramana Conklin MD 06/07/2024 06:48 AM . 07:23 Differential diagnosis: Anxiety Reaction asthma, Bronchitis CHF exacerbation, Chronic sp4 Obstructive Pulmonary Disease Myocardial Infarction pneumonia, Pneumothorax. Data reviewed: vital signs, nurses notes, EMS record, old medical records, lab test result(s), EKG, radiologic studies. Consideration of Admission/Observation Patient was admitted/placed on observation. Escalation of care including admission/observation considered. Management of patient was discussed with the following: Hospitalist: Summer SOTO . 06/07 04:50 Order name: Blood Culture Adult (2) 8 06/07 04:50 Order name: CBC with Diff; Complete Time: 05:43 8 06/07 04:50 Order name: CMP; Complete Time: 07:05 8 06/07 04:50 Order name: Lactate w/ 2H reflex if indic.; Complete Time: 06:05 8 06/07 04:50 Order name: Protime (+inr); Complete Time: 06:05 8 06/07 04:50 Order name: Ptt, Activated; Complete Time: 06:05 8 06/07 04:52 Order name: ABG; Complete Time: 05:43 sp4 06/07 05:04 Order name: Glucose, Ancillary Testing; Complete Time: 05:43 EDMS 06/07 05:18 Order name: C-Reactive Protein; Complete Time: 07:05 EDMS 06/07 05:18 Order name: T4 Free; Complete Time: 07:05 EDMS 06/07 05:18 Order name: Thyroid Stimulating Hormone; Complete Time: 07:05 EDMS 06/07 05:45 Order name: Influenza Screen (a \T\ B); Complete Time: 07:26 sp4 06/07 05:45 Order name: SARS RAPID; Complete Time: 07:26 4 06/07 05:56 Order name: Ghost Lactate-NO COLLECT Timer EDNV 06/07 07:10 Order name: BNP sp4 06/07 10:10 Order name: Troponin High Sensitivity EDNV 06/07 10:19 Order name: Lactate Sepsis 2 HR Follow-up EDNV 06/07 11:26 Order name: Troponin High Sensitivity EDNV 06/07 12:17 Order name: Glucose, Ancillary Testing EDNV 06/07 04:52 Order name: BIPAP 4 06/07 05:52 Order name: Chest Single View EDNV 06/07 06:11 Order name: CT Chest Abdomen Pelvis W/O Contrast 4 06/07 06:12 Order name: CT Head Brain wo Cont sp4 06/07 10:29 Order name: CT EDNV 06/07 10:42 Order name: CT EDNV 06/07 04:50 Order name: EKG; Complete Time: 04:51 8 06/07 07:31 Order name: CONS Physician Consult EDNV 06/07 04:50 Order name: Accucheck; Complete Time: 04:51 bm8 06/07 04:50 Order name: Cardiac monitoring; Complete Time: 04:51 bm8 06/07 04:50 Order name: EKG - Nurse/Tech; Complete Time: 04:57 bm8 06/07 04:50 Order name: IV Saline Lock - Large Bore; Complete Time: 04:52 bm8 06/07 04:50 Order name: Labs collected and sent; Complete Time: 05:17 8 06/07 04:50 Order name: O2 Per Protocol; Complete Time: 04:52 bm8 06/07 04:50 Order name: O2 Sat Monitoring; Complete Time: 04:52 bm8 06/07 04:50 Order name: Vital Signs; Complete Time: 04:52 bm8 06/07 04:54 Order name: Central Line Dressing Kit; Complete Time: 05:09 sp4 06/07 04:54 Order name: Central Line Kit; Complete Time: 05:09 sp4 06/07 04:54 Order name: Chlorhexidine prep; Complete Time: 05:09 sp4 06/07 04:54 Order name: Consent for central line completed; Complete Time: 05:52 sp4 06/07 04:54 Order name: Line Caps x3; Complete Time: 05:09 sp4 06/07 04:54 Order name: NS Flushes x3; Complete Time: 05:09 sp4 06/07 04:54 Order name: Sterile Gloves; Complete Time: 05:09 sp4 06/07 04:54 Order name: Sterile Probe Cover; Complete Time: 05:09 sp4 06/07 04:55 Order name: Cat; Complete Time: 05:07 sp4 06/07 05:15 Order name: Labs - recollect needed: green and blue top; Complete Time: 05:22 kmf EC:54 Rate is 100 beats/min. Rhythm is irregular, Sinus Rhythm with Occasional PVCs. QRS [place] sp4 is Normal. ME interval is normal. QRS interval is normal. No ST changes noted. Clinical impression: No evidence of ischemia. Interpreted by me. Reviewed by me. Administered Medications: 05:51 Discontinued: ns 0.9% 1000 ml IV at 1 bolus Per protocol; to be given as a bolus over bm8 60 minutes 05:17 Drug: NS 0.9% IV 1000 ml IV at 1 bolus Per protocol; to be given as a bolus over 60 dd2 minutes Route: IV; Rate: 1 bolus; Site: left jugular; 05:51 Follow up: Response: No adverse reaction; IV Status: Order to discontinue infusion; IV bm8 Intake: 500ml 05:17 Drug: Ondansetron IVP 8 mg IVP once; over 2 minutes Route: IVP; Site: left jugular; dd2 05:51 Follow up: Response: No adverse reaction bm8 05:52 Drug: MethylPrednisoLONE IVP 125 mg IVP once Route: IVP; Site: right jugular; bm8 06:51 Follow up: Response: No adverse reaction bm8 05:52 Drug: vancoMYCIN IVPB 2 grams IVPB at calculated rate once Route: IVPB; Rate: bm8 calculated rate; Site: right jugular; 05:52 Drug: Cefepime IVPB 2 grams IVPB at 200 ml/hr once over 30 mins; (mix in NS 100 mL) bm8 Route: IVPB; Rate: 200 ml/hr; Infused Over: 30 mins; Site: right jugular; 06:51 Follow up: Response: No adverse reaction; IV Status: Completed infusion; IV Intake: bm8 100ml 06:15 Drug: Albuterol Inhalation 2.5 mg Inhalation every 20 minutes x3 Route: Inhalation; bm8 06:15 Drug: Ipratropium Inhalation Aerosol 0.5 mg Inhalation once; Every 20 min for a total bm8 of 3 treatments x3 Route: Inhalation; 06:45 Drug: Albuterol Inhalation 2.5 mg Inhalation every 20 minutes x3 Route: Inhalation; bm8 06:45 Drug: Ipratropium Inhalation Aerosol 0.5 mg Inhalation once; Every 20 min for a total bm8 of 3 treatments x3 Route: Inhalation; 06:50 Drug: morphine IVP or IV 4 mg IVP once over 4 mins Route: IVP; Infused Over: 4 mins; bm8 Site: right antecubital; 06:50 Follow up: Response: No adverse reaction bm8 07:20 Drug: Furosemide IVP 80 mg IVP once; give over 2 minutes Route: IVP; Site: right bp jugular; 07:35 Follow up: Response: No adverse reaction ko1 Disposition: 07:25 Critical Care:. sp4 Disposition Summary: 06/07/24 07:23 Hospitalization Ordered Notes: Hospitalization Status: Inpatient Admission sp4 Provider: Mehran Wheeler sp4 Condition: Serious sp4 Problem: new sp4 Symptoms: have improved sp4 Bed/Room Type: Standard sp4 Location: Intensive Care Unit(06/07/24 15:35) [facility] Room Assignment: 4-(06/07/24 15:35) [facility] Diagnosis - Acute pulmonary edema sp4 - Acute diastolic (congestive) heart failure sp4 - Acute respiratory failure with hypoxia sp4 - Acute respiratory distress, sp4 Forms: - Medication Reconciliation Form sp4 - SBAR form sp4 - Leadership Thank You Letter sp4 Critical care time excluding procedures: 07:25 Critical care time: Bedside Care: 36 minutes, Consultation: 12 minutes, Family sp4 Intervention: 12 minutes. Total time: 60 minutes Signatures: Dispatcher [employer] EDJagjit Mcclendon RN RN ja1 Tawanda Gregorio RN RN Pavel Turpin MD MD sp4 Apoorva Rojas Sigifredo Milner RN RN bm8 CHUCK LOPEZ RN RN dd2 Paola Marmolejo RN ko1 Corrections: (The following items were deleted from the chart) 04:51 04:50 BLOOD CULTURE*+BA.LAB.BRZ ordered. EDMS EDMS 04:51 04:50 CBC+H.LAB.BRZ ordered. EDMS EDMS 04:51 04:50 COMPREHENSIVE METABOLIC PANEL+C.LAB.BRZ ordered. EDMS EDMS 04:51 04:50 LACTATE+C.LAB.BRZ ordered. EDMS EDMS 04:51 04:50 PROTIME (+INR)+COAG.LAB.BRZ ordered. EDMS EDMS 04:51 04:50 PTT, ACTIVATED+COAG.LAB.BRZ ordered. EDMS EDMS 05:18 04:55 THYROID STIMULAT HORMONE+C.LAB.BRZ ordered. EDMS EDMS 05:18 04:55 T4 FREE+C.LAB.BRZ ordered. EDMS EDMS 05:18 04:55 C-REACTIVE PROTEIN+C.LAB.BRZ ordered. EDMS EDMS 06:14 04:54 Chest Abdomen Pelvis W Con+CT.RAD.BRZ ordered. EDMS EDMS 08:09 07:23 Intensive Care Unit sp4 ja1 08:09 07:23 sp4 ja1 15:35 08:09 [facility] ER HOLD ja1 ja1 15:35 08:09 ERHOLD- ja1 ja1
--- NOTE | 2024-06-07 07:24 | ER ---
Nurse's Notes [facility] [address] Name: Frank Shaw Age: 74 yrs Sex: Male : 1950 Arrival Date: 06/07/2024 Time: 04:38 Bed 3 Private MD: Diagnosis: Acute pulmonary edema;Acute diastolic (congestive) heart failure;Acute respiratory failure with hypoxia;Acute respiratory distress, Presentation: 06/07 04:46 Chief complaint: EMS states: senior living state respiratory distress x 10 minutes. bm8 senior care reports they administered albuterol x1 without improvement. Coronavirus screen: Client denies travel out of the [place] in the last 14 days. Client presents with at least one sign or symptom that may indicate coronavirus-19. Ebola Screen: Patient denies exposure to infectious person. Patient denies travel to an Ebola-affected area in the 21 days before illness onset. Initial Sepsis Screen: Does the patient meet any 2 criteria? RR > 20 per min. HR > 90 bpm. Does the patient have a suspected source of infection? No. Patient's initial sepsis screen is negative. Risk Assessment: Do you want to hurt yourself or someone else? Patient reports no desire to harm self or others. Onset of symptoms was June 07, 2024. 04:46 Method Of Arrival: EMS: [facility] 8 04:46 Acuity: AGUS 1 bm8 Triage Assessment: 15:45 General: Appears in no apparent distress. Behavior is calm, cooperative, appropriate ko1 for age. Respiratory: Onset: The symptoms/episode began/occurred. Respiratory: Reports shortness of breath at rest. Historical: - Allergies: 04:47 Methocarbamol; bm8 04:47 Robaxin; bm8 04:47 statins; bm8 - PMHx: 04:47 Hearing Loss with hearing aids; diabetes mellitus; Left lung Pneumothorax; Hernia; TIA; bm8 Sleep Apnea; Renal Disease; Myocardial infarction; Hypertensive disorder; CVA; COPD; CHF; Atrial fibrillation; - PSHx: 04:47 back sx; Heart Stents; bm8 - Immunization history:: Adult Immunizations up to date. - Infectious Disease History:: Denies. - Family history:: not pertinent. - Social history:: Smoking status: Patient reports the use of cigarette tobacco products, unknown. Screenin:29 Abuse screen: Denies threats or abuse. Nutritional screening: UNKNOWN DO TO PT'S dd2 STATUS. Tuberculosis screening: No symptoms or risk factors identified. 05:53 [facility] ED Fall Risk Assessment (Adult) History of falling in the last 3 months, bm8 including since admission No falls in past 3 months (0 pts) Confusion or Disorientation Yes (5 pts) Intoxicated or Sedated No (0 pts) Impaired Gait Yes (1 pt) Mobility Assist Device Used No (0 pt) Altered Elimination Yes (1 pt) Score/Fall Risk Level 3 or more points = High Risk Oriented to surroundings, Maintained a safe environment, Educated pt \T\ family on fall prevention, incl call for assistance when getting out of bed, Assessed \T\ reinforced patient's understanding of fall precautions, Hourly rounding (assess needs \T\ fall precautionary measures) done, Used ambulatory aids as needed (educated on \T\ assisted with), Used gait belt as appropriate Implemented a Fall Risk Plan of Care, Apply high fall risk patient identification: yellow non skid footwear/ fall signage. Assessment: 04:45 Reassessment: reid shaved to obtain better seal with BIPAP mask. BIPAP applied now by bmRT [place]. Pt tolerating well. 05:52 Reassessment: Dr. Moser notified of critical lab value Lac 2.9. 05:53 Reassessment: Patient appears in no apparent distress at this time. Patient and/or bm8 family updated on plan of care and expected duration. Pain level reassessed. Patient is alert, oriented x 3, equal unlabored respirations, skin warm/dry/pink. Patient states symptoms have improved. General: Appears in no apparent distress. comfortable, Behavior is calm, cooperative, appropriate for age. Pain: Complains of pain in right jaw Pain currently is 4 out of 10 on a pain scale. Quality of pain is described as aching. Neuro: Level of Consciousness is awake, alert, obeys commands, Oriented to person, place, time, situation, Appropriate for age. Cardiovascular: Reports shortness of breath, Heart tones S1 S2 present Capillary refill < 3 seconds in bilateral fingers Patient's skin is warm and dry. Rhythm is sinus rhythm with multifocal PVCs. Respiratory: Airway is patent Respiratory effort is even, unlabored, on Bipap Respiratory pattern is regular, symmetrical, Patient placed on BiPAP: Inspiratory Pressure: 18 Expiratory (EPAP) Pressure: 8 FiO2%: 50 Respiratory Rate: 21 Breath sounds with crackles bilaterally. the patient has moderate shortness of breath. GI: No signs and/or symptoms were reported involving the gastrointestinal system. : No signs and/or symptoms were reported regarding the genitourinary system. EENT: No signs and/or symptoms were reported regarding the EENT system. Derm: No signs and/or symptoms reported regarding the dermatologic system. Musculoskeletal: No signs and/or symptoms reported regarding the musculoskeletal system. 06:52 Reassessment: Patient appears in no apparent distress at this time. No changes from bm8 previously documented assessment. Patient and/or family updated on plan of care and expected duration. Pain level reassessed. Patient is alert, oriented x 3, equal unlabored respirations, skin warm/dry/pink. Patient states feeling better. Patient states symptoms have improved. Vital Signs: 04:40 Pulse 105; Resp 32; Pulse Ox 78% on Non-rebreather mask; bm8 04:46 BP 160 / 73; Pulse 103; Resp 30; Temp 97; Pulse Ox 100% on 100 lpm BiPAP; Weight 117.93 bm8 kg; Height 5 ft. 11 in. ; Pain 0/10; 04:52 BP 160 / 73; bm8 04:53 Pulse Ox 100% on BiPAP; FiO2 100 %; bm8 04:56 Pulse Ox 80% on BiPAP; FiO2 100 %; bm8 04:56 Pulse Ox 100% on BiPAP; FiO2 100 %; bm8 04:56 BP 150 / 74; Pulse 93; Resp 30; Pulse Ox 100% on BiPAP; FiO2 100 %; bm8 05:53 BP 144 / 74; Pulse 85; Resp 21; Temp 97; Pulse Ox 100% ; Pain 4/10; bm8 06:52 BP 155 / 73; Pulse 81; Resp 19; Temp 97; Pulse Ox 94% on BiPAP; FiO2 50 %; Pain 0/10; bm8 04:46 Body Mass Index 36.26 (117.93 kg, 180.34 cm) bm8 04:46 Pain Scale: Adult bm8 05:53 Pain Scale: Adult bm8 06:52 Pain Scale: Adult bm8 04:56 Dr. Moser notified of decrease in O2 saturation. bm8 04:56 O2 Saturation returned to 100% after BIPAP adjustment bm8 [place] Coma Score: 05:53 Eye Response: spontaneous(4). Motor Response: obeys commands(6). Verbal Response: bm8 oriented(5). Total: 15. 06:52 Eye Response: spontaneous(4). Motor Response: obeys commands(6). Verbal Response: bm8 oriented(5). Total: 15. 07:11 Eye Response: spontaneous(4). Motor Response: obeys commands(6). Verbal Response: sp4 oriented(5). Total: 15. ED Course: 04:45 Patient arrived in ED. bm8 04:45 Inserted saline lock: 18 gauge in left EJ, using aseptic technique. ,using aseptic bm8 technique. Insertion by Dr. Moser Flushed with 10 mL NS. 04:47 Triage completed. bm8 04:48 Accessed peripheral vein via ultrasound, utilizing dynamic ultrasound technique using bm8 20G Nexia IV catheter ,sterile technique, per hospital protocol. Clean \T\ dry. Dressing intact. Good blood return. No blood return. insertion by TRENT Mei 20 gauge in L AC using US. 04:49 Arm band placed on left wrist. bm8 04:52 Pavel Moser MD is Attending Physician. sp4 04:57 EKG done, by ED staff, reviewed by Pavel Moser MD. oe 05:00 Initial lab(s) drawn, by ED staff, sent to lab. First set of blood cultures drawn by ED dd2 staff. 05:07 Cat cath inserted, using sterile technique, 16 Fr., by oh, balloon inflated, to dd2 gravity drainage. 05:07 Client placed on continuous cardiac and pulse oximetry monitoring. NIBP monitoring dd2 applied. property assessment monitor on. 05:08 Sigifredo Vieira RN is Primary Nurse. bm8 05:09 Warm blanket given. oe 05:17 BIPAP Sent. dd2 05:27 Assisted provider with central line placement. Set up central line tray. Triple lumen bm8 line placed in right internal jugular. Line placed by Pavel Moser MD Placement verified by blood return, Dressed with Tegaderm, Blood was collected. Patient tolerated well. Before procedure, did Practitioner(s) obtain informed consent? Yes. Patient \T\ family education about procedure, CLABSI prevention and S/S of infection? Yes. Time-out/Briefing performed prior to start of procedure? Yes. Was handwashing/sanitizing done immediately prior to procedure? Yes. Was patient positioned to in a way to prevent air embolism? Yes. Was procedure site sterilized? Yes, with chlorhexidine. Was the site allowed to dry? Yes. Was local anesthetic and/or sedation utilized? Yes. During the procedure, did the Practitioner(s) maintain a sterile field? Yes. Were unused ports clamped during insertion? Yes. Was a 2nd qualified MD obtained after 3 unsuccessful insertion attempts? N/A. Was blood aspirated from each lumen? Yes. After the procedure, did the Practitioner(s) clean the site and apply a sterile dressing? Yes. 05:29 Patient has correct armband on for positive identification. Bed in low position. Call dd2 light in reach. Side rails up X2. 05:52 Chest Single View In Process Unspecified. EDMS 07:20 Mehran Wheeler MD is Hospitalizing Provider. sp4 15:38 Patient admitted, IV remains in place. ko1 15:38 Provided Education on: meds. ko1 Administered Medications: 05:51 Discontinued: ns 0.9% 1000 ml IV at 1 bolus Per protocol; to be given as a bolus over bm8 60 minutes 05:17 Drug: NS 0.9% IV 1000 ml IV at 1 bolus Per protocol; to be given as a bolus over 60 dd2 minutes Route: IV; Rate: 1 bolus; Site: left jugular; 05:51 Follow up: Response: No adverse reaction; IV Status: Order to discontinue infusion; IV bm8 Intake: 500ml 05:17 Drug: Ondansetron IVP 8 mg IVP once; over 2 minutes Route: IVP; Site: left jugular; dd2 05:51 Follow up: Response: No adverse reaction bm8 05:52 Drug: MethylPrednisoLONE IVP 125 mg IVP once Route: IVP; Site: right jugular; bm8 06:51 Follow up: Response: No adverse reaction bm8 05:52 Drug: vancoMYCIN IVPB 2 grams IVPB at calculated rate once Route: IVPB; Rate: bm8 calculated rate; Site: right jugular; 05:52 Drug: Cefepime IVPB 2 grams IVPB at 200 ml/hr once over 30 mins; (mix in NS 100 mL) bm8 Route: IVPB; Rate: 200 ml/hr; Infused Over: 30 mins; Site: right jugular; 06:51 Follow up: Response: No adverse reaction; IV Status: Completed infusion; IV Intake: bm8 100ml 06:15 Drug: Albuterol Inhalation 2.5 mg Inhalation every 20 minutes x3 Route: Inhalation; bm8 06:15 Drug: Ipratropium Inhalation Aerosol 0.5 mg Inhalation once; Every 20 min for a total bm8 of 3 treatments x3 Route: Inhalation; 06:45 Drug: Albuterol Inhalation 2.5 mg Inhalation every 20 minutes x3 Route: Inhalation; bm8 06:45 Drug: Ipratropium Inhalation Aerosol 0.5 mg Inhalation once; Every 20 min for a total bm8 of 3 treatments x3 Route: Inhalation; 06:50 Drug: morphine IVP or IV 4 mg IVP once over 4 mins Route: IVP; Infused Over: 4 mins; bm8 Site: right antecubital; 06:50 Follow up: Response: No adverse reaction bm8 07:20 Drug: Furosemide IVP 80 mg IVP once; give over 2 minutes Route: IVP; Site: right bp jugular; 07:35 Follow up: Response: No adverse reaction ko1 Medication: 05:53 VIS not applicable for this client. bm8 Intake: 05:51 IV: 500ml; Total: 500ml. bm8 06:51 IV: 100ml; Total: 600ml. bm8 Outcome: 07:23 Decision to Hospitalize by Provider. sp4 15:38 Admitted to ER Hold. Please see [facility] for further documentation. ko1 15:38 Condition: stable 15:38 Instructed on the need for admit, 16:48 Patient left the ED. ko1 Signatures: Dispatcher [employer] EDMS Destiny Alva RN [place] Ashley Brian RN Paola Roche RN RN ko1 Pavel Moser MD MD sp4 Sigifredo Vieira RN RN bm8 CHUCK LOPEZ RN RN dd2 Corrections: (The following items were deleted from the chart) 04:58 04:56 Pulse Ox 80% 02 100lpm BiPAP; bm8 bm8 05:27 04:46 Pulse 103bpm; Pulse Ox 100% 02 100lpm BiPAP; bm8 bm8 05:31 05:27 Oxygen administration administration via face mask bm8 bm8
[2024-06-07] MEDS ORDERED: D10W 125 ML IV PRN (08:25)
[2024-06-07] MEDS ORDERED: ONDANSETRON 4 MG/2 ML VIAL IV PRN (08:25)
[2024-06-07] MEDS ORDERED: ALBUTEROL 2.5 MG/3 ML NEB SOL NEB PRN ×2 (08:25→15:51)
[2024-06-07] MEDS ORDERED: GLUCAGON 1 MG/VIAL IM PRN (08:25)
--- NOTE | 2024-06-07 10:19 | P.CNS ---
Date of Consult: 06/07/24 Chief Complaint: SOB History of Present Illness: Patient with PMH of CAD s/p multiple stents per daughter, also severe s/p recent [place], atrial fibrillation, chronic combined heart failure, CKD presented from [facility] home with worsening SOB, [place], patient denies chest pain, no palpitations, no syncope. Allergies methocarbamol [From Robaxin] Allergy (Verified 07/24/16 23:32) Unknown simvastatin Adverse Reaction (Verified 07/24/16 23:32) Nausea/Vomiting statins Allergy (Uncoded 10/06/16 06:00) Unknown Home medications list reviewed: Yes Home Medications: Montelukast [Singulair*] 10 mg PO DAILY 05/29/21 Albuterol Sulfate [Proair Respiclick] 1 puff IH Q6H PRN 07/07/23 Cetirizine HCl 10 mg PO DAILY 07/07/23 Fluticasone [Flonase 50MCG Nasal [place]*] 2 sprays FATOUMATA DAILY 07/07/23 Glimepiride 1 mg PO DAILY 07/07/23 Metoprolol Succinate [Toprol Xl*] 50 mg PO DAILY 07/07/23 Tamsulosin HCl 0.4 mg PO DAILY 07/07/23 Amiodarone HCl [Cordarone*] 200 mg PO BID #60 tab 07/18/23 Amlodipine [Norvasc*] 5 mg PO DAILY #30 tab 07/18/23 Benzonatate [Tessalon Perle*] 200 mg PO TID PRN #30 cap 07/18/23 Guaifen W/Codeine Syrup [ROBITUSSIN A-C Syrup*] 10 ml PO Q12HP PRN #150 ml 07/18/23 Ipratropium Neb [Atrovent*] 0.5 mg NEB Q12HP PRN #60 amp 07/18/23 Isosorbide [place] (Bid) [Ismo 10 mg Tab*] 20 mg PO DAILY #60 tab 07/18/23 Levalbuterol [Xopenex*] 1 amp NEB Q6H PRN #60 amp 07/18/23 Mometasone/Formoterol [Dulera 200 Mcg/5 Mcg Inhaler] 2 puff IH BID #1 inhaler 07/18/23 Nebulizer 1 each MC DAILY #1 ea 07/18/23 Nebulizer Accessories [Aeroneb Go] 1 each MC DAILY #1 ea 07/18/23 Rivaroxaban [Xarelto] 15 mg PO DAILY #30 tablet 07/30/23 - Past Medical/Surgical History Diabetic: Yes -: MS -: DM-2 -: HTN -: Atrial fibrillation on chronic anticoagulation -: CHF-diastolic -: Sleep Apnea -: CAD -: TIA -: HLD -: basal cell carcinoma -: CKD -: COPD -: Cardiac catheterization with stent placement x 5 -: Back surgery -: Tonsillectomy -: Adenoids -: Nose surgery -: 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 Psychosocial/ Personal History: Lives at home, alone - Family History Father Medical History: Heart disease Mother Medical History: Heart disease, Hypertension, Diabetes Sister Medical History: Hypertension, Diabetes - Social History Smoking Status: Current every day smoker Alcohol use: No CD- Drugs: No Caffeine use: Yes Review of Systems 10-point ROS is otherwise unremarkable Physical Examination Temp Pulse Resp BP Pulse Ox 86 95 06/07/24 09:30 06/07/24 09:30 General: Moderate distress (on biPAP machine) HEENT: Atraumatic Neck: Supple Respiratory: Diminished, Crackles/rales Cardiovascular: Regular rate/rhythm, Normal S1 S2, Edema Gastrointestinal: Normal bowel sounds Laboratory Data (last 24 hrs) 06/07/24 06/07/24 06/07/24 05:18 05:18 04:54 WBC 13.90 H Hgb 9.6 L Hct 29.2 L Plt Count 304 PT 34.7 H INR 3.34 APTT 42.2 H Sodium 136 Potassium 3.3 L BUN 47 H Creatinine 3.37 H Glucose 201 H Total Bilirubin 0.7 AST < 10 L ALT < 14 L Alkaline Phosphatase 105 - Problems (1) Acute on chronic combined systolic and diastolic heart failure Current Visit: Yes Status: Acute Plan: Patient with significant respiratory distress on BiPAP machine recommend IV diuresis with lasix 10 mg/hr drip and monitor input and output closely also get nephrology team on board get echo get records from patient outside water treatment specialist. (2) Type 2 MS (myocardial infarction) Current Visit: Yes Status: Acute Plan: troponin mild elevated, patient with hx of CAD multiple PCIs, troponin elevation is most likely type 2 MS from CHF/PNA start heparin drip ACS protocol ASA 81 mg daily get echo (3) Atrial fibrillation Current Visit: No Status: Chronic Plan: continue amiodarone 200 mg po BID Hold Xarelto and keep on heparin drip Qualifiers: (4) Hypertension Current Visit: No Status: Chronic Plan: reconcile and resume home medications Qualifiers:
--- NOTE | 2024-06-07 10:29 | RAD REPORT ---
EXAM: CT brain without contrast HISTORY: Confusion/alteration of consciousness COMPARISON: 2023 TECHNIQUE: Multiple contiguous axial images were obtained and a CT of the brain without contrast.. Sagittal and coronal reconstruction performed. Automated exposure control, adjustment of the mA and/or kV according to patient size, and/or iterative reconstruction. Unless otherwise specified, incidental f indings do not require dedicated imaging follow-up FINDINGS: An intracranial bleed is not seen Ventricles are normal caliber No extra-axial fluid collection noted Mild low-density areas within periventricular, deep and subcortical white matter likely represent ischemic changes secondary to small vessel disease. No fluid within the visualized sinuses or mastoids noted. IMPRESSION: No acute intracranial abnormality noted. If the patient continues to have symptoms to suggest an acute intracranial abnormality then MRI of th e brain would be recommended.
--- NOTE | 2024-06-07 10:42 | RAD REPORT ---
EXAM: CT CHEST, ABDOMEN AND PELVIS WITHOUT CONTRAST CLINICAL INDICATION: Chest and abdominal pain. Respiratory distress. Fever. TECHNIQUE: CT chest, abdomen and pelvis was performed, without IV contrast, as per department protoco l. Axial, sagittal and coronal reconstructions were obtained. One or more of the following dose reduction techniques were used: Automated exposure control, adjustment of the mA and/or kV according to the patient size, and/or iterative reconstruction. Unless otherwise specified, incidental findings do not require dedicated imaging follow-up. The lack of IV and oral contrast limits evaluation of the mediastinum, cliff, vessels, organs and micheline l. COMPARISON: 2017 CT FINDINGS: Moderate probably upper lobe alveolar opacities bilaterally. Mild bibasilar atelectasis. [id number] bilateral pleural effusions. Mild mediastinal lymphadenopathy probably reactive in nature. No pericardial effusion. Aortic valve replacement. Splenic granulomata are present. The liver, pancreas and adrenals grossly normal. Bilateral renal cysts. An aortobiiliac stent has been placed into an abdominal aortic aneurysm. No periaortic hematoma. Cholelithiasis. Gallbladder wall is not thickened. A Cat catheter is present within the bladder. Small inguinal hernias There is no evidence of diverticulitis IMPRESSION: Moderate predominantly upper lobe alveolar lung opacities probably pneumonia [id number] bilateral pleural effusions Cholelithiasis
[2024-06-07] MEDS: INSULIN REGULAR (HUMAN) 100 UNIT/ML SQ SCH (11:30)
--- NOTE | 2024-06-07 15:05 | P.HP ---
Certification for Inpatient Patient admitted to: Inpatient Patient will require the following post-hospital care: [facility] Practitioner: I am a practitioner with admitting privileges, knowledge of patient current condition, hospital course, and medical plan of care. Services: Services provided to patient in accordance with Admission requirements found in Title 42 Section 412.3 of the Code of Federal Regulations Patient History Date of Service: 06/07/24 Primary Care Provider: Summer Reason for admission: SOB History of Present Illness: Patient is a pleasant 74 year Extensive history of CAD, atrial fib, aortic stenosis, CHF and ckd stage 4 with a baseline creatine fo 3.5. He has been having shortness of breath for the last 3-4 days. Was sent to the hospital. He had to be put on a bipap. the patient is currently stable. Was seen by Dr Espinal. Started on a furosemide drip and will be admitted to the ICU. He has been seen by Dr. Torres in the past. Allergies methocarbamol [From Robaxin] Allergy (Verified 07/24/16 23:32) Unknown simvastatin Adverse Reaction (Verified 07/24/16 23:32) Nausea/Vomiting statins Allergy (Uncoded 10/06/16 06:00) Unknown Home Medications: Montelukast [Singulair*] 10 mg PO DAILY 05/29/21 Albuterol Sulfate [Proair Respiclick] 1 puff IH Q6H PRN 07/07/23 Cetirizine HCl 10 mg PO DAILY 07/07/23 Fluticasone [Flonase 50MCG Nasal [place]*] 2 sprays FATOUMATA DAILY 07/07/23 Glimepiride 1 mg PO DAILY 07/07/23 Metoprolol Succinate [Toprol Xl*] 50 mg PO DAILY 07/07/23 Tamsulosin HCl 0.4 mg PO DAILY 07/07/23 Amiodarone HCl [Cordarone*] 200 mg PO BID #60 tab 07/18/23 Amlodipine [Norvasc*] 5 mg PO DAILY #30 tab 07/18/23 Benzonatate [Tessalon Perle*] 200 mg PO TID PRN #30 cap 07/18/23 Guaifen W/Codeine Syrup [ROBITUSSIN A-C Syrup*] 10 ml PO Q12HP PRN #150 ml 07/18/23 Ipratropium Neb [Atrovent*] 0.5 mg NEB Q12HP PRN #60 amp 07/18/23 Isosorbide [place] (Bid) [Ismo 10 mg Tab*] 20 mg PO DAILY #60 tab 07/18/23 Levalbuterol [Xopenex*] 1 amp NEB Q6H PRN #60 amp 07/18/23 Mometasone/Formoterol [Dulera 200 Mcg/5 Mcg Inhaler] 2 puff IH BID #1 inhaler 07/18/23 Nebulizer 1 each MC DAILY #1 ea 07/18/23 Nebulizer Accessories [Aeroneb Go] 1 each MC DAILY #1 ea 07/18/23 Rivaroxaban [Xarelto] 15 mg PO DAILY #30 tablet 07/30/23 - Past Medical/Surgical History Has patient received pneumonia vaccine in the past: Yes Diabetic: Yes -: VT -: DM-2 -: HTN -: Atrial fibrillation on chronic anticoagulation -: CHF-diastolic -: Sleep Apnea -: CAD -: TIA -: HLD -: basal cell carcinoma -: CKD -: COPD -: Cardiac catheterization with stent placement x 5 -: Back surgery -: Tonsillectomy -: Adenoids -: Nose surgery -: 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 Psychosocial/ Personal History: Lives at home, alone - Family History Father -: Heart disease Mother -: Heart disease, Hypertension, Diabetes Sister -: Hypertension, Diabetes - Social History Smoking Status: Unknown if ever smoked Alcohol use: No CD- Drugs: No Caffeine use: Yes Place of Residence: Home Review of Systems 10-point ROS is otherwise unremarkable Respiratory: Shortness of Breath Physical Examination - Vital Signs Blood Pressure: 157/83 Pulse: 85 Respirations: 13 Pulse Ox (%): 97 - Physical Exam General: Alert, In no apparent distress HEENT: Atraumatic, PERRLA, Mucous membr. moist/pink, EOMI, Sclerae nonicteric Neck: Supple, 2+ carotid pulse no bruit, No LAD, Without JVD or thyroid abnormality Respiratory: Clear to auscultation bilaterally, Normal air movement Cardiovascular: Normal S1 S2, Irregular heart rate/rhythm (tachycardia ) Gastrointestinal: Normal bowel sounds, No tenderness Musculoskeletal: No tenderness Integumentary: No rashes Neurological: Normal gait, Normal speech, Normal strength at 5/5 x4 extr, Normal tone, Normal affect Lymphatics: No axilla or inguinal lymphadenopathy - Studies Laboratory Data (last 24 hrs) 06/07/24 06/07/24 06/07/24 05:18 05:18 04:54 WBC 13.90 H Hgb 9.6 L Hct 29.2 L Plt Count 304 PT 34.7 H INR 3.34 APTT 42.2 H Sodium 136 Potassium 3.3 L BUN 47 H Creatinine 3.37 H Glucose 201 H Total Bilirubin 0.7 AST < 10 L ALT < 14 L Alkaline Phosphatase 105 Microbiology Data (last 24 hrs): 06/07/24 06:13 Nasopharnyx Influenza Type A Antigen Screen - Final 06/07/24 06:13 Nasopharnyx Influenza Type B Antigen Screen - Final Assessment and Plan - Problems (Diagnosis) (1) Acute on chronic combined systolic and diastolic heart failure Current Visit: Yes Status: Acute Plan: Dr. Espinal consulted. Will keep him on bipap. Send the patient to the icu. Start lasix drip. (2) CKD stage 4 due to type 2 diabetes mellitus Current Visit: Yes Status: Chronic Plan: consult to Dr. Torres. Considering his poor chronic renal function. He is an ideal patient for entresto or kerendia. The family has difficulty with expenses Will need to consult hospital social worker for some low cost programs (3) Atrial fibrillation Current Visit: No Status: Chronic Qualifiers: Atrial fibrillation type: longstanding persistent Qualified Code(s): I48.11 - Longstanding persistent atrial fibrillation (4) Diabetes mellitus Onset Date: 05/22/15 Current Visit: No Status: Chronic Qualifiers: Diabetes mellitus type: type 2 Diabetes mellitus fpc insulin use: without fpc use Diabetes mellitus complication status: with neurologic complications Diabetes mellitus complication detail: with polyneuropathy Qualified Code(s): E11.42 - Type 2 diabetes mellitus with diabetic polyneuropathy (5) Hypertension Current Visit: No Status: Chronic Qualifiers: Hypertension type: primary hypertension Discharge Plan: Jail Plan to discharge in: Greater than 2 days - Advance Directives Does patient have a Living Will: No Does patient have a Durable POA for Healthcare: No Critical Care: Yes Time Spent Managing Pts Care (In Minutes): 60
[2024-06-07] MEDS ORDERED: HEPARIN/D5W 25,000 UNIT/500 ML BAG IV PRN (16:00)
[2024-06-07] MEDS: FUROSEMIDE IV SCH (17:19)
[2024-06-07] MEDS: NA CHLORIDE 0.9% IV SCH (17:19)
[2024-06-07] MEDS: KCL 20 MEQ/100 mL IVPB 100 ML IV ONE (19:37)
[2024-06-07] MEDS: KCL 20 MEQ/100 mL IVPB 20 MEQ/100 ML BAG IV SCH (19:48)
[2024-06-07] MEDS: HEPARIN/D5W 25,000 UNIT/500 ML BAG IV SCH (19:49)
[2024-06-07] MEDS: MOMETASONE IH SCH (21:00)
[2024-06-07] MEDS: FORMOTEROL IH SCH (21:00)
[2024-06-08 06:42] LABS: Absolute Lymphocytes (CBC) 0.6 K/uL (0.7-4.9); Absolute Monocytes 0.6 K/uL (0.1-1.3); Absolute Neutrophil 8.2 K/uL (1.8-8.0); Basophils % 0.2 % (0-1.3); Hematocrit 26.2 % (39.6-49.0); Hemoglobin 8.6 g/dL (13.6-17.9); Lymphocytes % 6.6 % (15.3-44.8); MCH 28.6 pg (27.0-35.0); MCHC 32.7 g/dL (32.0-36.0); MCV 87.4 fL (80-100); MPV 7.7 fL (7.6-11.3); Monocytes % 6.1 % (3.3-12.3); Neutrophils % 87.1 % (41.7-73.7); Platelets 254 thou/uL (152-406); RBC Red Blood Cell Count 2.99 M/uL (4.33-5.43)
[2024-06-08 06:53] LABS: AST/SGOT 11 U/L (15-37); Albumin 2.6 g/dL (3.4-5.0); Albumin/Globulin Ratio 0.7 (1.1-1.8); Alkaline Phosphatase 92 U/L (45-117); Anion Gap 10.2 mEq/L (5.0-15.0); BUN Blood Urea Nitrogen 48 mg/dL (7-18); Bicarbonate 29 mEq/L (21-32); Bilirubin Total 0.7 mg/dL (0.2-1.0); Globulin 3.9 g/dL (2.3-3.5); Glomerular Filtration Rate 20 ml/min (=/>90); Glucose Level 136 mg/dL (74-106); Magnesium 2.3 mg/dL (1.6-2.4); Potassium 3.2 mEq/L (3.5-5.1); Protein, Total 6.5 g/dL (6.4-8.2); Sodium Level 140 mEq/L (136-145)
[2024-06-08 06:56] LABS: ALT/SGPT < 14 U/L (16-61)
[2024-06-08] MEDS: LEVOTHYROXINE SOD 0.075 MG TAB PO SCH (07:09)
[2024-06-08] MEDS: FLU (Fluarix Triv) TS24-25(6MOS UP)/PF 45 MCG/0.5 ML Syringe IM ONE (07:45)
[2024-06-08] MEDS ORDERED: RIVAROXABAN 15 MG TABLET PO SCH (08:00)
--- NOTE | 2024-06-08 08:45 | P.PN ---
Subjective Date of Service: 06/08/24 Primary Care Provider: Summer Chief Complaint: SOB Subjective: Improving not able to wean off the bipap Review of Systems 10-point ROS is otherwise unremarkable Physical Examination - Vital Signs Temperature: 98.9 F Blood Pressure: 166/73 Pulse: 81 Respirations: 14 Pulse Ox (%): 96 - Physical Exam General: Alert, In no apparent distress HEENT: Atraumatic, PERRLA, EOMI Neck: Supple, JVD not distended Respiratory: Expiratory wheezes Cardiovascular: No edema Gastrointestinal: Normal bowel sounds, No tenderness Musculoskeletal: No tenderness Integumentary: No rashes Neurological: Normal speech, Normal tone, Normal affect Lymphatics: No axilla or inguinal lymphadenopathy - Studies Microbiology Data (last 24 hrs): 06/07/24 06:13 Nasopharnyx Influenza Type A Antigen Screen - Final 06/07/24 06:13 Nasopharnyx Influenza Type B Antigen Screen - Final Assessment And Plan - Current Problems (Diagnosis) (1) Acute on chronic combined systolic and diastolic heart failure Current Visit: Yes Status: Acute Plan: Dr. Espinal consulted. Will keep him on bipap. Send the patient to the icu. Start lasix drip. (2) CKD stage 4 due to type 2 diabetes mellitus Current Visit: Yes Status: Chronic Plan: consult to Dr. Torres. Considering his poor chronic renal function. He is an ideal patient for entresto or kerendia. The family has difficulty with expenses Will need to consult clinical social worker for some low cost programs 2.4 creatine has improved. His a1c is well controlled. Would llike to start him on dafligazone for the cardiac and renal protective effect. however is not on formulary. Will work with the family about possible ways to obtain this medication (3) Atrial fibrillation Current Visit: No Status: Chronic Plan: will restart his carvedilol when chf is better controlled Qualifiers: Atrial fibrillation type: longstanding persistent Qualified Code(s): I48.11 - Longstanding persistent atrial fibrillation (4) Diabetes mellitus Onset Date: 05/22/15 Current Visit: No Status: Chronic Qualifiers: Diabetes mellitus type: type 2 Diabetes mellitus correction insulin use: without local intermodal truck driver use Diabetes mellitus complication status: with neurologic complications Diabetes mellitus complication detail: with polyneuropathy Qualified Code(s): 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 If no improvement may need to start steroids. Qualifiers: COPD type: chronic bronchitis Chronic bronchitis type: unspecified Qualified Code(s): J42 - Unspecified chronic bronchitis Discharge Plan: Usp Plan to discharge in: Greater than 2 days - Code Status/Comfort Care Code Status Assessed: No Critical Care: No Time Spent Managing PTS Care (In Minutes): 20
[2024-06-08 08:50] LABS: White Blood Cell Scan OK (OK)
[2024-06-08 08:51] LABS: Anisocytosis 1+; Blood Morphology Comment NOTED (NOT SEEN); Platelet Estimate ADEQ
[2024-06-08] MEDS ORDERED: FUROSEMIDE 40 MG/4 ML VIAL IV SCH (09:00)
[2024-06-08] MEDS: TAMSULOSIN 0.4 MG SR CAP PO SCH (10:24)
[2024-06-08] MEDS: PANTOPRAZOLE 40MG TABLET PO SCH (10:24)
[2024-06-08] MEDS: AMIODARONE HCL 200 MG TAB PO SCH (10:24)
[2024-06-08] MEDS: FINASTERIDE 5 MG TAB PO SCH (10:24)
[2024-06-08] MEDS: KCL 20 MEQ/100 mL IVPB 20 MEQ/100 ML BAG IV SCH ×2 (10:26→20:02)
[2024-06-08] MEDS: ISOSORBIDE MONO 10 MG TAB PO SCH (10:27)
[2024-06-08] MEDS: SPIRONOLACTONE 25 MG TABLET PO SCH (10:51)
[2024-06-08] MEDS: CALCITROL 0.25 MCG CAP PO SCH (10:51)
[2024-06-08] MEDS: INSULIN REGULAR (HUMAN) 100 UNIT/ML SQ SCH (10:55)
--- NOTE | 2024-06-08 11:24 | P.PN ---
Subjective Date of Service: 06/08/24 Primary Care Provider: Summer Chief Complaint: SOB Subjective: No new changes, No C/O voiced, Tolerating diet, Improving Review of Systems 10-point ROS is otherwise unremarkable Physical Examination - Vital Signs Temperature: 98.9 F Blood Pressure: 166/73 Pulse: 81 Respirations: 14 Pulse Ox (%): 96 - Physical Exam General: Alert, In no apparent distress HEENT: Atraumatic, PERRLA, EOMI Neck: Supple, JVD not distended Respiratory: Clear to auscultation bilaterally, Normal air movement Cardiovascular: Regular rate/rhythm, Normal S1 S2 Gastrointestinal: Normal bowel sounds, No tenderness Musculoskeletal: No tenderness Integumentary: No rashes Neurological: Normal speech, Normal tone, Normal affect Lymphatics: No axilla or inguinal lymphadenopathy - Studies Microbiology Data (last 24 hrs): 06/07/24 06:13 Nasopharnyx Influenza Type A Antigen Screen - Final 06/07/24 06:13 Nasopharnyx Influenza Type B Antigen Screen - Final Medications List Reviewed: Yes Assessment And Plan - Current Problems (Diagnosis) (1) Acute on chronic combined systolic and diastolic heart failure Current Visit: Yes Status: Acute Plan: Patient with significant respiratory distress on BiPAP machine continue IV diuresis with lasix 10 mg/hr drip and monitor input and output closely also get nephrology team on board get echo get records from patient outside program or project administrator. (2) Type 2 OK (myocardial infarction) Current Visit: Yes Status: Acute Plan: troponin mild elevated, patient with hx of CAD multiple PCIs, troponin elevation is most likely type 2 OK from CHF/PNA start heparin drip ACS protocol ASA 81 mg daily get echo (3) Atrial fibrillation Current Visit: No Status: Chronic Plan: continue amiodarone 200 mg po daily Hold Xarelto and keep on heparin drip Qualifiers: (4) Hypertension Current Visit: No Status: Chronic Plan: reconcile and resume home medications Qualifiers: Hypertension type: primary hypertension
--- NOTE | 2024-06-08 12:16 | EKG ---
Test Date: 2024-06-07 Test Time: 04:54:30 Vending Machine Technician: MONSERRAT MEASUREMENT RESULTS: Intervals: Rate: 100 DC: 114 QRSD: 118 QT: 400 QTc: 516 [place]: P: -3 DC: 114 QRS: 61 T: 35 INTERPRETIVE STATEMENTS: Sinus rhythm with occasional premature ventricular complexes Low voltage QRS Nonspecific intraventricular conduction delay Prolonged QT Abnormal ECG Compared to ECG 04/02/2024 00:23:26 Ventricular premature complex(es) now present Low QRS voltage now present Intraventricular conduction delay now present Sinus arrhythmia no longer present First degree AV block no longer present T-wave abnormality no longer present Electronically Signed On 06-08-24 12:13:00 WEB ADMINISTRATOR by Chaka Espinal
--- NOTE | 2024-06-08 12:33 | RAD REPORT ---
EXAMINATION: ONE VIEW CHEST XR CLINICAL INDICATION: heart failure TECHNIQUE: Frontal chest projection is submitted. Examination is limited by patient positioning and t echnique. COMPARISON: 06/07/2024 FINDINGS: Extensive bilateral pulmonary opacities are present, greater on the left likely representing pulmonar y edema or pneumonia. The findings appear stable since prior study. The heart is mildly to moderately enlarged. No displaced fractures identified. Right-sided venous catheters tip in SVC. IMPRESSION: Stable extensive bilateral pulmonary opacities presumed pulmonary edema.
[2024-06-08 12:49] LABS: UR PROTEIN 62.6 mg/dL (<11.9)
[2024-06-08 12:51] LABS: UR CREAT < 18.0 mg/dL (20-370)
--- NOTE | 2024-06-08 14:18 | CON ---
Date of Consultation: 06/08/2024 Reason For Consultation: Elevated BUN and creatinine, over volume, fluid management. History Of Present Illness: This is a pleasant 74-year-old gentleman, known to me from previous admi ssion with significant past medical history of hypertension, hyperlipidemia, diabetes complicated wit h neuropathy and retinopathy, CAD complicated with congestive heart failure, diastolic and systolic d ysfunction, ejection fraction of 38%, valvular heart disease, COPD, atrial fibrillation, chronic kidn ey disease, stage IV, followup with Nephrology at the medical center. Baseline creatinine used to be around 2. The patient recently admitted to the hospital with acute kidney injury. Creatinine up to the 4 secondary to cardiorenal. At that time, patient was diuresed, recovered. Upon discharge from the hospital in February, the patient's creatinine was down to the 3s. The patient readmitted to the hospital and the patient was transferred to . There, the patient had treated as CHF exace rbation with cardiorenal syndrome. The patient did undergo thoracocentesis, bilateral. The patient then after that, transferred to the rehab on room air. The patient on the last couple of days starte d having shortness of breath, increased leg swelling, for that reason reported to the hospital. Upon arrival to the hospital, the patient was hypoxemic, over volume, creatinine was 3, GFR 20, for that reason, we have been consulted. The patient was started on Lasix drip and heparin, felt slightly bet ter, still on BiPAP. The patient responding with good urine output. Past Medical History: Includes; 1. Diabetes complicated with neuropathy, retinopathy, and nephropathy. 2. CAD complicated with congestive heart failure, systolic ejection fraction of 38%. 3. Atrial fibrillation. 4. Chronic kidney disease, stage 4 secondary to diabetes nephropathy, cardiorenal syndrome, baseline creatinine 3, GFR 20. 5. COPD. Allergies: TO METHOCARBAMOL AND SIMVASTATIN. Past Surgical History: Includes basal cell carcinoma, cardiac cath, tonsillectomy, adenoidectomy, na kailey surgery, aortic aneurysm repair. Family History: Positive for hypertension, diabetes, and CAD. Social History: Ex-smoker, occasional alcohol. Denied drugs abuse. Review of Systems: Head and Neck: No red eye. No ear pain. GI: No nausea. No vomiting. : No polyuria. No dysuria. No hematuria. FINANCE ADMIN: Not applicable. Respiratory: Has shortness of breath. Cardiovascular: Has orthopnea. Has leg swelling. Endocrine: No polydipsia. Skin: No rash. Neuro: Has neuropathy. Musculoskeletal: Generalized fatigue. Home Medications: Include Flomax, Xarelto, isosorbide, metoprolol, Singulair, cetirizine, amiodarone , amlodipine. Current Medications: In the hospital include heparin, Flomax, Xopenex, isosorbide, amiodarone, Lasix drip, Tylenol, levothyroxine, Proscar, KCl. Physical Examination: Vital Signs: When I saw the patient, blood pressure 166/73, pulse of 81, afebrile. Chest: Crackles bilateral. Heart: S1, S2. Regular. Abdomen: Soft, nontender. Extremities: Plus edema. Neurologic: Alert, no focality. Laboratory Data: Sodium 140, potassium 3.2, bicarb 29, BUN 48, creatinine 3, GFR of 20, calcium 8.7. LFT within normal limit. BNP 484. Troponin 119. PTH 404. Chest x-ray, cardiomegaly with congest ion. ABG pH 7.36, CO2 of 39, O2 of 241, base excess -2, saturation 99. WBC 9.4, hemoglobin 8.6. Assessment And Plan: 1. Chronic kidney disease stage 4 with acute kidney injury secondary to cardiorenal, over volume. I am going to go ahead and increase Lasix to 20 mg per hour and we will follow up the patient with pres ence of hypokalemia. I am going to add spironolactone, especially with the presence of congestive hea rt failure, and we will follow up the patient. 2. Hypertension, controlled, not optimal. We will utilize blood pressure for more diuresis, increase Lasix. Add spironolactone and we will follow up. 3. Acidosis secondary to renal failure. No need for any bicarb supplement. 4. CAD, non-ST elevation LA with CHF exacerbation. We will optimize the fluid status with diuresis. Add spironolactone. Increase Lasix. We will follow up with Cardiology. Follow up echocardiogram. 5. COPD as by primary. 6. Diabetes, as by primary. 7. Respiratory failure secondary to congestive heart failure with exacerbation. We will optimize flui d status with diuresis. 8. Pneumonia. Continue current antibiotic. Thank you, Dr. Wheeler, for allowing us to participate in the care of your patient. Time spent examining the patient [id number], reviewing data, lab and radiology, placing order, disc ussing the case with the patient and family by bedside, discussing the case with the senior engineering team leader incl yared hospitalist and nursing staff in the ICU more than 75 minutes. PAT Voice ID: [id number] Report ID: [id number]
--- NOTE | 2024-06-08 14:24 | CON ---
Date of Consultation: 06/07/2024 Chief Complaint: Cardiorenal syndrome, congestive heart failure exacerbation, acute on chronic kidne y injury. History Of Present Illness: The patient has multiple medical problems including history of diabetes mellitus; hypertension; coronary artery disease; atrial fibrillation; peripheral vascular disease; ao rtic stenosis; congestive heart failure, stage 4; chronic kidney disease. The patient came to the [facility] because of progressively worse shortness of breath, fatigue, and generalized weakness. The pa teresa was started on BiPAP in the ER because of severe shortness of breath. He has fluid overload. Cardiology was consulted. The patient was started on furosemide drip and was admitted to ICU. Review of Systems: Unobtainable due to patient's condition. Past Medical History: Diabetes mellitus type 2; hypertension; atrial fibrillation, on chronic antico agulation; congestive heart failure; diastolic dysfunction; sleep apnea coronary artery disease; TIA; ; basal cell carcinoma; chronic kidney disease, stage 4; COPD; cardiac catheterization wit h stent placement as well as tonsillectomy. Abdominal aortic aneurysm. Family History: Father, heart disease. Mother, heart disease, hypertension, diabetes. Sister has [place], hypertension. Physical Examination: Vital Signs: Blood pressure 157/83, heart rate is 85, respiratory rate is 13, SpO2 of . General: The patient is arousable. Eyes: Anicteric sclerae. EOMI. Neck: Supple. No bruits. Without JVD. Respiratory: Rhonchi and crackles bilaterally present. Cardiovascular: S1, S2. Irregularly irregular. Gastrointestinal: Normal bowel sounds. No tenderness. Extremities: Edema present. Laboratory Data: Hemoglobin is 9.6, WBC 13.9, platelet count 304,000. PT 34.7, INR 3.34. APTT 42.2 . Sodium 136, potassium 3.4, BUN 47, creatinine 3.37, glucose 201. Total bilirubin 0.7, AST less th an 10, ALT less than 14, AP 105. Impression And Plan: 1. Acute on chronic combined systolic and diastolic congestive heart failure. Continue diuretics. T he patient is admitted to the ICU, started on Lasix drip. Monitor electrolytes and advance supplemen tation as needed. 2. Chronic kidney disease, stage 4 due to diabetes mellitus. The patient will continue IV insulin __ . 3. Hypertension. Continue current . 4. Anemia. Monitor hemoglobin and hematocrit. . EB/MODL Voice ID: [id number] Report ID: [id number]
[2024-06-08] MEDS: FUROSEMIDE IV SCH (16:00)
[2024-06-08] MEDS: NA CHLORIDE 0.9% IV SCH (16:00)
[2024-06-08] MEDS: MORPHINE 4 MG/ML SYR IV PRN (17:57)
[2024-06-08] MEDS: DULERA 200/5 (MOMETASONE/FORMOTEROL) INHALER IH ONE (20:04)
[2024-06-08] MEDS: HYDRALAZINE HCL 20 MG/ML VIAL IV PRN (20:16)
[2024-06-08] MEDS: AMOX/K CLAV 500 MG TAB PO SCH (20:17)
[2024-06-08] MEDS: LEVALBUTEROL 0.63 MG/3 ML NEB NEB PRN (21:06)
[2024-06-09 05:44] LABS: Absolute Lymphocytes (CBC) 1.2 K/uL (0.7-4.9); Absolute Monocytes 0.8 K/uL (0.1-1.3); Absolute Neutrophil 8.7 K/uL (1.8-8.0); Basophils % 0.3 % (0-1.3); Eosinophils % 0.3 % (0-4.4); Hematocrit 27.9 % (39.6-49.0); Hemoglobin 9.5 g/dL (13.6-17.9); Lymphocytes % 10.9 % (15.3-44.8); MCH 29.1 pg (27.0-35.0); MCHC 33.9 g/dL (32.0-36.0); MCV 85.8 fL (80-100); MPV 7.6 fL (7.6-11.3); Monocytes % 7.2 % (3.3-12.3); Neutrophils % 81.3 % (41.7-73.7); Platelets 272 thou/uL (152-406); RBC Red Blood Cell Count 3.26 M/uL (4.33-5.43); Red Cell Distribution Width 18.1 % (12.1-15.2)
[2024-06-09 06:24] LABS: AST/SGOT 11 U/L (15-37); Albumin 2.8 g/dL (3.4-5.0); Albumin/Globulin Ratio 0.7 (1.1-1.8); Alkaline Phosphatase 94 U/L (45-117); Anion Gap 6.5 mEq/L (5.0-15.0); BUN Blood Urea Nitrogen 46 mg/dL (7-18); Bicarbonate 34 mEq/L (21-32); Bilirubin Total 0.9 mg/dL (0.2-1.0); Ferritin 107.2 ng/mL (26-388); Globulin 4.3 g/dL (2.3-3.5); Glomerular Filtration Rate 21 ml/min (=/>90); Glucose Level 136 mg/dL (74-106); Magnesium 2.1 mg/dL (1.6-2.4); Phosphorus 2.8 mg/dL (2.5-4.9); Potassium 3.5 mEq/L (3.5-5.1); Protein, Total 7.1 g/dL (6.4-8.2); Sodium Level 138 mEq/L (136-145); Transferrin 185 mg/dL (200-360); Uric Acid 9.1 mg/dL (3.5-7.2)
[2024-06-09 06:33] LABS: ALT/SGPT < 14 U/L (16-61)
[2024-06-09] MEDS: POTASSIUM 25 MEQ EFFERV TAB PO ONE (07:12)
[2024-06-09] MEDS: POTASSIUM CL SA 10 MEQ TAB PO ONE (08:58)
--- NOTE | 2024-06-09 09:26 | P.PN ---
Subjective Date of Service: 06/09/24 Primary Care Provider: Summer Chief Complaint: SOB Subjective: No new changes, No C/O voiced, Tolerating diet, Ambulating, Improving Review of Systems 10-point ROS is otherwise unremarkable Physical Examination - Vital Signs Temperature: 98.3 F Blood Pressure: 147/77 Pulse: 85 Respirations: 16 Pulse Ox (%): 100 - Physical Exam General: Alert, In no apparent distress HEENT: Atraumatic, PERRLA, EOMI Neck: Supple, JVD not distended Respiratory: Clear to auscultation bilaterally, Normal air movement Cardiovascular: Regular rate/rhythm, Normal S1 S2 Gastrointestinal: Normal bowel sounds, No tenderness Musculoskeletal: No tenderness Integumentary: No rashes Neurological: Normal speech, Normal tone, Normal affect Lymphatics: No axilla or inguinal lymphadenopathy - Studies Microbiology Data (last 24 hrs): 06/07/24 04:54 Blood - Blood Blood Culture Gram Stain - Final 06/07/24 04:54 Blood - Blood Gram Stain - Final 06/07/24 05:12 Blood - Blood Blood Culture Gram Stain - Final 06/07/24 05:12 Blood - Blood Gram Stain - Final Medications List Reviewed: Yes Assessment And Plan - Current Problems (Diagnosis) (1) Acute on chronic combined systolic and diastolic heart failure Current Visit: Yes Status: Acute Plan: Patient with significant respiratory distress on BiPAP machine continue IV diuresis with lasix 20 mg/hr drip and monitor input and output c losely get echo get records from patient outside rubbing bed operator. (2) Type 2 MO (myocardial infarction) Current Visit: Yes Status: Acute Plan: troponin mild elevated, patient with hx of CAD multiple PCIs, troponin elevation is most likely type 2 MO from CHF/PNA start heparin drip ACS protocol ASA 81 mg daily get echo (3) Atrial fibrillation Current Visit: No Status: Chronic Plan: continue amiodarone 200 mg po daily also re start T oprol XL 25 mg daily, up titrate depending on BP and HR. Hold Xarelto and keep on heparin drip Qualifiers: (4) Hypertension Current Visit: No Status: Chronic Plan: reconcile and resume home medications Qualifiers: Hypertension type: primary hypertension
[2024-06-09] MEDS: AMIODARONE HCL 200 MG TAB PO ONE (10:39)
[2024-06-09] MEDS: SOD FERRIC GLUC COMPLX/SUCROSE 250 MG in NA CHLORIDE 0.9% 250 ML IV SCH (11:24)
--- NOTE | 2024-06-09 12:04 | P.PN ---
Subjective Date of Service: 06/09/24 Primary Care Provider: Summer Chief Complaint: SOB Subjective: Improving off bipap Review of Systems 10-point ROS is otherwise unremarkable Physical Examination - Vital Signs Temperature: 98.3 F Blood Pressure: 155/88 Pulse: 116 Respirations: 15 Pulse Ox (%): 98 - Physical Exam General: Alert, In no apparent distress HEENT: Atraumatic, PERRLA, EOMI Neck: Supple, JVD not distended Respiratory: Clear to auscultation bilaterally, Normal air movement Cardiovascular: Regular rate/rhythm, Normal S1 S2 Gastrointestinal: Normal bowel sounds, No tenderness Musculoskeletal: No tenderness Integumentary: No rashes Neurological: Normal speech, Normal tone, Normal affect Lymphatics: No axilla or inguinal lymphadenopathy - Studies Microbiology Data (last 24 hrs): 06/07/24 04:54 Blood - Blood Blood Culture Gram Stain - Final 06/07/24 04:54 Blood - Blood Gram Stain - Final 06/07/24 05:12 Blood - Blood Blood Culture Gram Stain - Final 06/07/24 05:12 Blood - Blood Gram Stain - Final Medications List Reviewed: Yes Assessment And Plan - Current Problems (Diagnosis) (1) Acute on chronic combined systolic and diastolic heart failure Current Visit: Yes Status: Acute Plan: Dr. Espinal consulted. Will keep him on bipap. Send the patient to the icu. Start lasix drip. 2.5.25 restart carvedilol (2) CKD stage 4 due to type 2 diabetes mellitus Current Visit: Yes Status: Chronic Plan: consult to Dr. Torres. Considering his poor chronic renal function. [facility] The family has difficulty with expenses Will need to consult social media senior associate for some low cost programs 2.5 improving creatine (3) Atrial fibrillation Current Visit: No Status: Chronic Plan: will restart his carvedilol when chf is better controlled Qualifiers: Atrial fibrillation type: longstanding persistent Qualified Code(s): I48.11 - Longstanding persistent atrial fibrillation (4) Diabetes mellitus Onset Date: 05/22/15 Current Visit: No Status: Chronic Qualifiers: Diabetes mellitus type: type 2 Diabetes mellitus senior living insulin use: without watcher automat long goods use Diabetes mellitus complication status: with neurologic complications Diabetes mellitus complication detail: with polyneuropathy Qualified Code(s): E11.42 - Type 2 diabetes mellitus with diabetic poly neuropathy (5) Hypertension Current Visit: No Status: Chronic Qualifiers: Hypertension type: primary hypertension (6) COPD (chronic obstructive pulmonary disease) Current Visit: Yes Status: Acute Plan: will start him on levalbuterol. If no improvement may need to start steroids. Qualifiers: COPD type: chronic bronchitis Chronic bronchitis type: unspecified Qualified Code(s): J42 - Unspecified chronic bronchitis (7) Staphylococcus aureus bacteremia Current Visit: Yes Status: Acute Plan: switch her levaquin per the Melvin guide Discharge Plan: Fpc Plan to discharge in: Greater than 2 days - Code Status/Comfort Care Code Status Assessed: No Physician Review: Patient Assessed, Agree with Above Assessment and Plan Critical Care: Yes Time Spent Managing PTS Care (In Minutes): 30
[2024-06-09] MEDS: carvediloL 3.125 MG TAB PO ONE (12:12)
[2024-06-09] MEDS: NA CHLORIDE 0.9% IV SCH (12:12)
[2024-06-09] MEDS: FUROSEMIDE IV SCH (12:12)
--- NOTE | 2024-06-09 13:33 | ECHO ---
HEIGHT: 5 ft 11 in WEIGHT: 207 lb 3.2 oz DATE OF STUDY: 06/08/[address]: Mehran Wheeler MD 2-DIMENSIONAL: YES M.MODE: YES DOPPLER: YES COLOR FLOW: YES TDS: PORTABLE: YES DEFINITY: BUBBLE STUDY: DIAGNOSIS: CONGESTIVE HEART FAILURE CARDIAC HISTORY: CATHERIZATION: SURGERY: PROSTHETIC VALVE: PACEMAKER: MEASUREMENTS (cm) DIASTOLIC (NORMALS) SYSTOLIC (NORMALS) IVSd 1.0 (0.6-1.2) LA Diam 4.4 (1.9-4.0) LVEF 44% LVIDd 5.7 (3.5-5.7) LVIDs 4.4 (2.0-3.5) %FS 22% LVPWd 1.1 (0.6-1.2) Ao Diam 2.7 (2.0-3.7) 2 DIMENSIONAL ASSESSMENT: RIGHT ATRIUM: NORMAL LEFT ATRIUM: MODERATELY DILATED RIGHT VENTRICLE: NORMAL LEFT VENTRICLE: MILD DILATED TRICUSPID VALVE: MILD TRICUSPID REGURGITAITON MITRAL VALVE: MODERATE TO SEVERE MITRAL REGURGITATION PULMONIC VALVE: NORMAL AORTIC VALVE: BIOPROSTHETIC PERICARDIAL EFFUSION: NONE AORTIC ROOT: NORMAL LEFT VENTRICULAR WALL MOTION: MODERATE GLOBAL HYPOKINESIS DOPPLER/COLOR FLOW: GRADE III DIASTOLIC DYSFUNCTION COMMENTS: 1. MODERATELY REDUCED LEFT VENTRICULAR SYSTOLIC FUNCTION, EJECTION FRACTION 35-40%, MODERATE GLOBAL HYPOKINESIS 2. GRADE III DIASTOLIC DYSFUNCTION 3. MODERATE TO SEVERE MITRAL REGURGITATION 4. NORMAL BIOPROSTHETIC AORTIC VALVE 5. ELEVATED FILLING PRESSURE (RIGHT ATRIAL PRESSURE GREATER THAN 20 mmHg) TECHNOLOGIST: NEFTALI [facility]
--- NOTE | 2024-06-09 14:00 | PN ---
Date of Progress Note: 06/09/2024 Subjective: The patient was admitted to the hospital with acute kidney injury secondary to cardioren al syndrome. Patient was started on diuresis. The patient responded very well. The patient was on BiPAP, currently down to nasal cannula. Had good urine output. Blood pressure has been maintained g ood. Physical Examination: Vital Signs: Blood pressure 147/77, pulse of 85. Afebrile. Chest: Crackles bilateral. Heart: S1, S2, systolic murmur. Abdomen: Soft, nontender. Extremity: +1 edema. Neuro: Alert. No focality. Laboratory Data: Hemoglobin 9.5. Sodium 138, potassium 3.5, bicarb 34, BUN 46, creatinine 2.9, tren ding down. Iron saturation of 10, ferritin of 107, TSH 3.2. Current Medications: The patient on include Augmentin, Flomax, amiodarone, isosorbide, spironolacton e 25 daily, Lasix drip at 20 mg, pantoprazole, Zofran, levothyroxine, finasteride. Assessment And Plan: 1. Acute kidney injury secondary to cardiorenal, continue to improve. I am going to continue current diuresis dose. We will follow up the patient. 2. Hypertension, controlled, optimal. Continue current treatment. Keep holding ARMAAN inhibitor or ARB . 3. Hypokalemia. Continue spironolactone. I am going to go ahead and supplement. 4. Iron-deficiency anemia. We will start the patient on iron infusion and we will follow up. 5. Pneumonia. Continue current antibiotic. 6. Chronic obstructive pulmonary disease exacerbation as above. 7. Congestive heart failure with exacerbation. We will continue to optimize the fluid status. IVY/YESY Voice ID: [id number] Report ID: [id number]
[2024-06-09] MEDS: carvediloL 3.125 MG TAB PO SCH (17:13)
[2024-06-09] MEDS: AMIODARONE HCL 200 MG TAB PO SCH (20:37)
[2024-06-10 06:07] LABS: Absolute Basophils 0.1 K/uL (0-0.5); Absolute Eosinophils 0.1 K/uL (0-0.5); Absolute Lymphocytes (CBC) 1.3 K/uL (0.7-4.9); Absolute Monocytes 0.8 K/uL (0.1-1.3); Absolute Neutrophil 6.6 K/uL (1.8-8.0); Basophils % 0.8 % (0-1.3); Eosinophils % 1.1 % (0-4.4); Hematocrit 28.9 % (39.6-49.0); Hemoglobin 9.7 g/dL (13.6-17.9); Lymphocytes % 14.2 % (15.3-44.8); MCH 28.9 pg (27.0-35.0); MCHC 33.4 g/dL (32.0-36.0); MCV 86.6 fL (80-100); MPV 7.7 fL (7.6-11.3); Monocytes % 9.1 % (3.3-12.3); Neutrophils % 74.8 % (41.7-73.7); Nucleated Red Blood Cells % 0.2 % (0-0); Platelets 291 thou/uL (152-406); RBC Red Blood Cell Count 3.34 M/uL (4.33-5.43); Red Cell Distribution Width 18.1 % (12.1-15.2)
[2024-06-10 06:26] LABS: Albumin 2.8 g/dL (3.4-5.0); Albumin/Globulin Ratio 0.6 (1.1-1.8); Alkaline Phosphatase 92 U/L (45-117); Anion Gap 8.2 mEq/L (5.0-15.0); BUN Blood Urea Nitrogen 54 mg/dL (7-18); Bicarbonate 35 mEq/L (21-32); Bilirubin Total 0.7 mg/dL (0.2-1.0); Globulin 4.4 g/dL (2.3-3.5); Glomerular Filtration Rate 21 ml/min (=/>90); Glucose Level 144 mg/dL (74-106); Magnesium 2.3 mg/dL (1.6-2.4); Phosphorus 2.3 mg/dL (2.5-4.9); Potassium 3.2 mEq/L (3.5-5.1); Protein, Total 7.2 g/dL (6.4-8.2); Sodium Level 137 mEq/L (136-145)
[2024-06-10 06:30] LABS: ALT/SGPT < 14 U/L (16-61); AST/SGOT < 10 U/L (15-37)
[2024-06-10] MEDS: POTASSIUM CL SA 10 MEQ TAB PO ONE ×4 (08:06→19:37)
[2024-06-10] MEDS: levoFLOXacin 750 MG TAB PO SCH (08:06)
[2024-06-10] MEDS: POTASSIUM PHOS IN 0.9 % NACL 15 MMOL/250 ML BAG IV ONE (08:07)
--- NOTE | 2024-06-10 08:54 | P.PN ---
Subjective Date of Service: 06/10/24 Primary Care Provider: Summer Chief Complaint: SOB Subjective: Improving Patient is improving we can move him to tele per Dr. Espinal. states he is tired of coming to the hospital every week Review of Systems 10-point ROS is otherwise unremarkable Physical Examination - Vital Signs Temperature: 97.9 F Blood Pressure: 161/99 Pulse: 110 Respirations: 12 Pulse Ox (%): 96 - Physical Exam General: Alert, In no apparent distress HEENT: Atraumatic, PERRLA, EOMI Neck: Supple, JVD not distended Respiratory: Clear to auscultation bilaterally, Normal air movement Cardiovascular: Regular rate/rhythm, Normal S1 S2 Gastrointestinal: Normal bowel sounds, No tenderness Musculoskeletal: No tenderness Integumentary: No rashes Neurological: Normal speech, Normal tone, Normal affect Lymphatics: No axilla or inguinal lymphadenopathy - Studies Microbiology Data (last 24 hrs): 06/07/24 04:54 Blood - Blood Blood Culture Gram Stain - Final 06/07/24 04:54 Blood - Blood Gram Stain - Final 06/07/24 05:12 Blood - Blood Blood Culture Gram Stain - Final 06/07/24 05:12 Blood - Blood Gram Stain - Final Medications List Reviewed: Yes Assessment And Plan - Current Problems (Diagnosis) (1) Acute on chronic combined systolic and diastolic heart failure Current Visit: Yes Status: Acute Plan: Dr. Espinal consulted. Will keep him on bipap. Send the patient to the icu. S gregg lasix drip. 2.5. switched to metoprolol (2) CKD stage 4 due to type 2 diabetes mellitus Current Visit: Yes Status: Chronic Plan: consult to Dr. Torres. Considering his poor chronic renal function. He is an ideal patient for entresto or kerendia. The family has difficulty with expenses Will need to consult social welfare clerk for some low cost programs 2.6 can start entresto per Dr. Watts (3) Atrial fibrillation Current Visit: No Status: Chronic Plan: will restart his carvedilol when chf is better controlled Qualifiers: Atrial fibrillation type: longstanding persistent Qualified Code(s): I48.11 - Longstanding persistent atrial fibrillation (4) Diabetes mellitus Onset Date: 05/22/15 Current Visit: No Status: Chronic Qualifiers: Diabetes mellitus type: type 2 Diabetes mellitus business services analyst insulin use: without long-term use Diabetes mellitus complication status: with neurologic complications Diabetes mellitus complication detail: with polyneuropathy Qualified Code(s): E11.42 - Type 2 diabetes mellitus with diabetic polyneuropathy (5) Hypertension Current Visit: No Status: Chronic Qualifiers: Hypertension type: primary hypertension (6) COPD (chronic obstructive pulmonary disease) Current Visit: Yes Status: Acute Plan: will start him on levalbuterol. If no improvement may need to start steroids. Qualifiers: COPD type: chronic bronchitis Chronic bronchitis type: unspecified Qualified Code(s): J42 - Unspecified chronic bronchitis (7) Staphylococcus aureus bacteremia Current Visit: Yes Status: Acute Plan: switch her levaquin per the Melvin guide Discharge Plan: Home Plan to discharge in: 48 Hours - Code Status/Comfort Care Code Status Assessed: No Physician Review: Patient Assessed, Agree with Above Assessment and Plan Critical Care: Yes Time Spent Managing PTS Care (In Minutes): 25
[2024-06-10] MEDS: APIXABAN 5 MG TABLET PO SCH (09:20)
[2024-06-10] MEDS: METOPROLOL XL 25 MG TAB PO SCH (09:20)
[2024-06-10] MEDS: SACUBITRIL/VALSARTAN 24/26 MG TAB PO ONE (09:20)
--- NOTE | 2024-06-10 09:40 | P.PN ---
Subjective Date of Service: 06/10/24 Primary Care Provider: Summer Chief Complaint: SOB Subjective: No new changes, No C/O voiced, Tolerating diet, Ambulating, Improving Review of Systems 10-point ROS is otherwise unremarkable Physical Examination - Vital Signs Temperature: 97.9 F Blood Pressure: 126/56 Pulse: 95 Respirations: 21 Pulse Ox (%): 95 - Physical Exam General: Alert, In no apparent distress HEENT: Atraumatic, PERRLA, EOMI Neck: Supple, JVD not distended Respiratory: Clear to auscultation bilaterally, Normal air movement Cardiovascular: Regular rate/rhythm, Normal S1 S2 Gastrointestinal: Normal bowel sounds, No tenderness Musculoskeletal: No tenderness Integumentary: No rashes Neurological: Normal speech, Normal tone, Normal affect Lymphatics: No axilla or inguinal lymphadenopathy - Studies Microbiology Data (last 24 hrs): 06/07/24 04:54 Blood - Blood Blood Culture Gram Stain - Final 06/07/24 04:54 Blood - Blood Gram Stain - Final 06/07/24 05:12 Blood - Blood Blood Culture Gram Stain - Final 06/07/24 05:12 Blood - Blood Gram Stain - Final Medications List Reviewed: Yes Assessment And Plan - Current Problems (Diagnosis) (1) Acute on chronic combined systolic and diastolic heart failure Current Visit: Yes Status: Acute Plan: Patient with significant respiratory distress on BiPAP machine would suggest lowering patient diuresis to 10 mg/hr and continue to monitor his input and output switch coreg to lopressor 25 mg po BID continue Aldactone 25 mg daily Echo shows moderate reduced LV systolic function, DD, moderate to severe MR and elevated filling pressures. get records from patient outside varying exceptionalities teacher. (2) Type 2 AZ (myocardial infarction) Current Visit: Yes Status: Acute Plan: troponin mild elevated, patient with hx of CAD multiple PCIs, troponin elevation is most likely type 2 AZ from CHF/PNA ok to stop Heparin ASA 81 mg daily (3) Atrial fibrillation Current Visit: No Status: Chronic Plan: continue amiodarone 200 mg po BID switch coreg to lopressor 25 mg po BID stop heparin drip start Eliquis 5 mg po BID Qualifiers: (4) Hypertension Current Visit: No Status: Chronic Plan: reconcile and resume home medications Qualifiers: Hypertension type: primary hypertension Physician Review: Patient Assessed, Agree with Above Assessment and Plan
--- NOTE | 2024-06-10 10:27 | RAD REPORT ---
Procedure: Chest Single View HISTORY: Shortness of breath COMPARISON: June 08, 2024 FINDINGS: The bilateral pulmonary opacities have mostly resolved. No significant pleural effusion noted. The heart is mildly enlarged.. Central venous line in the SVC IMPRESSION: Pulmonary edema has mostly resolved
[2024-06-10] MEDS: FUROSEMIDE 40 MG/4 ML VIAL IV SCH (11:56)
--- NOTE | 2024-06-10 15:06 | PN ---
Date of Progress Note: 06/10/2024 Subjective: Patient was admitted with acute kidney injury secondary to cardiorenal. The patient tiffanie arently had been overvolume. His acute kidney injury was secondary to cardiorenal. The patient had been diuresed very well. Patient converted to room air. On physical exam, when I saw the patient, b lood pressure 110/72, pulse of 109, afebrile. Chest x-ray: Cardiomegaly with congestion compared to the chest x-ray before much better. Objective: Vital Signs: Blood pressure as above. Chest: Crackles, bilateral. Heart: S1, S2. Systolic murmur, tachy. Abdomen: Soft, nontender. Extremities: Trace edema. Neurologic: Alert. No focality. Laboratory Data: WBC 8.8, hemoglobin 9.7, sodium 137, potassium 3.2, bicarb 35, BUN 54, creatinine 2 .9. GFR 21, calcium 9.3, phosphorus 2.3, magnesium 2.3 albumin 2.8, corrected calcium 10.1. Current Medications: The patient on Lasix drip, levofloxacin 750 daily, Flomax, IV iron, amiodarone, carvedilol . The patient was started on Entresto, spironolactone, pantoprazole, levothyro xine, finasteride. Assessment And Plan: 1. Acute kidney injury secondary to cardiorenal, overvolume, but much better than before. Blood pres sure had been stable. I am going to go ahead and resume Entresto. Change Lasix to IV pushes and we will monitor the patient. 2. Hypertension, controlled, optimal. We will utilize blood pressure for more diuresis. Okay to res ume Entresto. Change Lasix 80 mg every 8 hours. 3. Hypokalemia. Continue spironolactone. We will supplement. 4. Iron-deficiency anemia. Continue IV iron. 5. Pneumonia. Patient was started on Levaquin with the current kidney function, I am going to change the dosage to 250. 6. Chronic obstructive pulmonary disease with exacerbation, as above. 7. Respiratory failure combined secondary to congestive heart failure/chronic obstructive pulmonary d isease exacerbation. Continue diuresis as above. Continue antibiotic. We will follow up with the Grzegorz locke. IVY/YESY Voice ID: [id number] Report ID: [id number]
[2024-06-10] MEDS: DULERA 200/5 (MOMETASONE/FORMOTEROL) INHALER IH SCH (19:38)
[2024-06-10] MEDS: SOD CHLORIDE 0.65% NASAL SPRAY NAS PRN (19:44)
[2024-06-10] MEDS ORDERED: BISMUTH SUBSALICYL 262MG/15ML-240 ML BTL PO PRN (21:44)
[2024-06-11] MEDS: CALCIUM CARBONATE CHEW 500MG TAB PO ONE (00:55)
[2024-06-11] MEDS: ACETAMINOPHEN 325 MG TABLET PO PRN (05:09)
[2024-06-11 05:57] LABS: Albumin 2.7 g/dL (3.4-5.0); Anion Gap 11.1 mEq/L (5.0-15.0); Magnesium 2.2 mg/dL (1.6-2.4); Potassium 4.1 mEq/L (3.5-5.1)
--- NOTE | 2024-06-11 09:05 | P.PN ---
Subjective Date of Service: 06/11/24 Primary Care Provider: Summer Chief Complaint: SOB Subjective: Improving Patient is improving we can move him to tele per Dr. Espinal. states he is tired of coming to the hospital every week Review of Systems 10-point ROS is otherwise unremarkable Physical Examination - Vital Signs Temperature: 97.4 F Blood Pressure: 119/69 Pulse: 100 Respirations: 20 Pulse Ox (%): 95 - Physical Exam General: Alert, In no apparent distress HEENT: Atraumatic, PERRLA, EOMI Neck: Supple, JVD not distended Respiratory: Clear to auscultation bilaterally, Normal air movement Cardiovascular: Regular rate/rhythm, Normal S1 S2 Gastrointestinal: Normal bowel sounds, No tenderness Musculoskeletal: No tenderness Integumentary: No rashes Neurological: Normal speech, Normal tone, Normal affect Lymphatics: No axilla or inguinal lymphadenopathy - Studies Medications List Reviewed: Yes Assessment And Plan - Current Problems (Diagnosis) (1) Acute on chronic combined systolic and diastolic heart failure Current Visit: Yes Status: Acute Plan: Dr. Espinal consulted. Will keep him on bipap. Send the patient to the icu. Start lasix drip. 2.5.25 switched to metoprolol (2) CKD stage 4 due to type 2 diabetes mellitus Current Visit: Yes Status: Chronic Plan: consult to Dr. Torres. Considering his poor chronic renal function. He is an ideal patient for entresto or kerendia. The family has difficulty with expenses Will need to consult psychiatric social worker supervisor for some low cost programs 2.7 increase in his creatine. May be due to the entresto. Will keep him in house another day and monitor the creatine, may have to d/c sglt2 and kerendia may be acceptable alternatives. (3) Atrial fibrillation Current Visit: No Status: Chronic Plan: will restart his carvedilol when chf is better controlled Qualifiers: Atrial fibrillation type: longstanding persistent Qualified Code(s): I48.11 - Longstanding persistent atrial fibrillation (4) Diabetes mellitus Onset Date: 05/22/15 Current Visit: No Status: Chronic Qualifiers: Diabetes mellitus type: type 2 Diabetes mellitus half-way insulin use: without long term care phlebotomist use Diabetes mellitus complication status: with neurologic complications Diabetes mellitus complication detail: with polyneuropathy Qualified Code(s): E11.42 - Type 2 diabetes mellitus with diabetic polyneuropathy (5) Hypertension Current Visit: No Status: Chronic Qualifiers: Hypertension type: primary hypertension (6) COPD (chronic obstructive pulmonary disease) Current Visit: Yes Status: Acute Plan: will start him on levalbuterol. If no improvement may need to start steroids. Qualifiers: COPD type: chronic bronchitis Chronic bronchitis type: unspecified Qualified Code(s): J42 - Unspecified chronic bronchitis (7) Staphylococcus aureus bacteremia Current Visit: Yes Status: Acute Plan: switch her levaquin per the Melvin guide Discharge Plan: [facility] Plan to discharge in: 48 Hours - Code Status/Comfort Care Code Status Assessed: No Physician Review: Patient Assessed, Agree with Above Assessment and Plan Critical Care: No Time Spent Managing PTS Care (In Minutes): 20
[2024-06-11] MEDS: SACUBITRIL/VALSARTAN 24/26 MG TAB PO SCH (09:42)
[2024-06-11] MEDS: levoFLOXacin 250 MG TAB PO SCH (09:42)
--- NOTE | 2024-06-11 18:38 | PN ---
Date of Progress Note: 06/11/2024 Subjective: Seen by bedside. Doing well. No significant shortness of breath. Review of Systems: No chest pain, shortness of breath, orthopnea, cough. No nausea, vomiting, diarrhea. He has no othe r symptoms. Physical Examination: Vital Signs: Reviewed. Head and Neck: Pupils are equal, reactive to light. Intact eye movements. No JVD. No cervical lym phadenopathy. Neck is supple. Thyroid is not enlarged. Lungs: Clear to auscultation bilaterally. No rhonchi, wheezing, or crackles. No accessory muscle u se. Heart: Irregular. No extra sounds. Abdomen: Soft, nontender. Bowel sounds positive. No organomegaly. No masses or hernia. No rigidi ty or rebound. Extremities: No clubbing, cyanosis. 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 Neurologic: Alert, awake, oriented x3. No acute focal deficits appreciated. Investigations: Labs reviewed. Assessment/recommendation: 1. Acute on chronic systolic heart failure exacerbation. Appears to be euvolemic. Continue current therapy. 2. Elevated troponin. This patient will need ischemia workup. This is likely a demand ischemia, but he follows up with a sales facilitator in [place], to follow up post discharge for possible stress test. 3. Atrial fibrillation, controlled and stable. Continue amiodarone and Eliquis. 4. Peripheral vascular disease with ulcers of the foot. Recommend to obtain arterial Doppler and madhavi n accordingly. SR/MODL Voice ID: [id number] Report ID: [id number]
--- NOTE | 2024-06-11 22:22 | PN ---
Date of Progress Note: 06/11/2024 Subjective: No overnight events and stated his breathing is feeling better. Started physical and oc cupational therapy. Creatinine today after 3.5. We will change his Lasix to oral. The patient also started on Entresto. Objective: Vital signs: Blood pressure 112/63. General: Awake, alert, oriented x3, not in distress. Neck: Supple. No elevated JVD. Heart: Regular rate rhythm. Normal S1, S2. Chest: Clear to auscultation bilaterally. No rales or wheezes. Abdomen: Soft, nontender. Extremities: No edema. Laboratory Data: White count 8.8, hemoglobin 9.7. Sodium 135, BUN 62, creatinine 3.5. Assessment And Plan: 1. Acute on chronic kidney disease due to cardiorenal syndrome. Currently, the patient looks euvolem ic. We will stop IV Lasix. Switch to oral Lasix, starting for tomorrow. Continue Aldactone. 2. Systolic heart failure. Continue current medication. Continue Entresto starting from tomorrow. 3. Diabetes mellitus. Continue insulin. 4. Atrial fibrillation, currently rate controlled. Cardiology to follow up. Thanks for allowing me to participate in the patient's care. Total time spent 55 minutes including d ocumentation, reviewing labs, and placing orders. GEOFF Voice ID: [id number] Report ID: [id number]
[2024-06-11] MEDS ORDERED: CALCIUM CARBONATE CHEW 500MG TAB PO ONE (22:42)
[2024-06-12 06:43] LABS: Albumin 2.5 g/dL (3.4-5.0); Anion Gap 10.4 mEq/L (5.0-15.0); Magnesium 2.4 mg/dL (1.6-2.4); Phosphorus 4.2 mg/dL (2.5-4.9); Potassium 4.4 mEq/L (3.5-5.1)
[2024-06-12] MEDS: FUROSEMIDE 40 MG TABLET PO SCH (09:00)
[2024-06-12 11:23] LABS: Anion Gap 13.1 mEq/L (5.0-15.0); Magnesium 2.4 mg/dL (1.6-2.4); Potassium 4.1 mEq/L (3.5-5.1); Troponin High Sensitivity 38.1 pg/mL (<58.9)
--- NOTE | 2024-06-12 12:57 | P.PN ---
Subjective Date of Service: 06/12/24 Primary Care Provider: Summer Chief Complaint: SOB Subjective: No new changes Patient is improving we can move him to tele per Dr. Espinal. states he is tired of coming to the hospital every week Review of Systems syncopal Physical Examination - Vital Signs Temperature: 98.0 F Blood Pressure: 110/58 Pulse: 76 Respirations: 12 Pulse Ox (%): 100 - Physical Exam General: Alert, In no apparent distress HEENT: Atraumatic, PERRLA, EOMI Neck: Supple, JVD not distended Respiratory: Clear to auscultation bilaterally, Normal air movement Cardiovascular: Regular rate/rhythm, Normal S1 S2 Gastrointestinal: Normal bowel sounds, No tenderness Musculoskeletal: No tenderness Integumentary: No rashes Neurological: Normal speech, Normal tone, Normal affect Lymphatics: No axilla or inguinal lymphadenopathy - Studies Microbiology Data (last 24 hrs): 06/07/24 05:12 Blood - Blood Aerobic Blood Culture - Final Staphylococcus Lugdunensis Streptococcus Salivarius 06/07/24 05:12 Blood - Blood Blood Culture Gram Stain - Final 06/07/24 05:12 Blood - Blood Anaerobic Blood Culture - Final Staphylococcus Lugdunensis Streptococcus Salivarius 06/07/24 05:12 Blood - Blood Gram Stain - Final 06/07/24 04:54 Blood - Blood Blood Culture Gram Stain - Final 06/07/24 04:54 Blood - Blood Gram Stain - Final Medications List Reviewed: Yes Assessment And Plan - Current Problems (Diagnosis) (1) Acute on chronic combined systolic and diastolic heart failure Current Visit: Yes Status: Acute Plan: Dr. Espinal consulted. Will keep him on bipap. Send the patient to the icu. Start lasix drip. 2.09.26 switched to metoprolol (2) CKD stage 4 due to type 2 diabetes mellitus Current Visit: Yes Status: Chronic Plan: consult to Dr. Torres. Considering his poor chronic renal function. He is an ideal patient for entresto or kerendia. The family has difficulty with expenses Will need to consult pediatric social worker for some low cost programs 2.8 patient has worsening creatine. Will stop the entresto. Will hold the isosorbide till bp improves (3) Atrial fibrillation Current Visit: No Status: Chronic Plan: will restart his carvedilol when chf is better controlled Qualifiers: Atrial fibrillation type: longstanding persistent Qualified Code(s): I48.11 - Longstanding persistent atrial fibrillation (4) Diabetes mellitus Onset Date: 05/22/15 Current Visit: No Status: Chronic Qualifiers: Diabetes mellitus type: type 2 Diabetes mellitus detention insulin use: without terminologist use Diabetes mellitus complication status: with neurologic complications Diabetes mellitus complication detail: with polyneuropathy Qualified Code(s): E11.42 - Type 2 diabetes mellitus with diabetic polyneuropathy (5) Hypertension Current Visit: No Status: Chronic Qualifiers: Hypertension type: primary hypertension (6) COPD (chronic obstructive pulmonary disease) Current Visit: Yes Status: Acute Plan: will start him on levalbuterol. If no improvement may need to start steroids. Qualifiers: COPD type: chronic bronchitis Chronic bronchitis type: unspecified Qualified Code(s): J42 - Unspecified chronic bronchitis (7) Staphylococcus aureus bacteremia Current Visit: Yes Status: Acute Plan: switch her levaquin per the Melvin guide (8) Syncopal episodes Current Visit: Yes Status: Acute Plan: patient was found hypotensive in the bathroom. Will hold his bp meds Qualifiers: Syncope type: vasovagal syncope Qualified Code(s): R55 - Syncope and collapse Discharge Plan: Halfway Plan to discharge in: Greater than 2 days - Code Status/Comfort Care Code Status Assessed: No Physician Review: Patient Assessed, Agree with Above Assessment and Plan Critical Care: No Time Spent Managing PTS Care (In Minutes): 20
[2024-06-12] MEDS: NA CHLORIDE 0.9% 1,000 ML ONE (14:04)
--- NOTE | 2024-06-12 14:41 | RAD REPORT ---
EXAM: Chest Single View HISTORY: COPD COMPARISON: 06/10/2024 FINDINGS: LUNGS/PLEURA: Worsening aeration at the lung bases with decreased lung volumes. There is still inters titial prominence bilaterally. Small pleural effusions are suspected. MEDIASTINUM: The mediastinal silhouette is within normal limits. CARDIAC: Stable size and configuration. UPPER ABDOMEN: No significant abnormality. BONES: No acute abnormality. LINES/TUBES/OTHER: N/A IMPRESSION: Worsened aeration at the lung bases which could be due to increased atelectasis or possibly enlarging pleural effusions in the setting of increased pulmonary edema.
[2024-06-12] MEDS: NA CHLORIDE 0.9% 1,000 ML IV SCH (16:00)
[2024-06-12] MEDS ORDERED: NA CHLORIDE 0.9% 250 ML ONE (16:01)
[2024-06-12] MEDS: Levofloxacin 250mg IV 250 MG/50 ML BAG IV SCH (16:18)
[2024-06-12] MEDS ORDERED: FUROSEMIDE 40 MG/4 ML VIAL IV SCH (17:00)
--- NOTE | 2024-06-12 17:29 | RAD REPORT ---
EXAMINATION: US RETROPERITONEUM CLINICAL INDICATION: NAREN TECHNIQUE: Real-time ultrasonography of the abdomen was performed. COMPARISON: 07/10/2023 FINDINGS: RIGHT KIDNEY: Right renal length measurement: 9.5 cm. Normal in echogenicity and size. No calculus, s olid mass or hydronephrosis. Septated renal cyst at the right kidney measuring 1.7 cm. Renal cortical thinning is present. LEFT KIDNEY: Left renal length measurement: 10 cm. Normal in echogenicity and size. No calculus, elton d mass or hydronephrosis. Simple left renal cyst measuring 4 cm. Renal cortical thinning. ADDITIONAL FINDINGS: Incidentally noted cholelithiasis. IMPRESSION: No evidence of hydronephrosis. Bilateral renal cysts.
--- NOTE | 2024-06-12 20:51 | PN ---
Date of Progress Note: 06/12/2024 Subjective: The patient was admitted to the hospital with acute kidney injury secondary to cardioren al. The patient was diuresed very well. The patient's kidney function has been improved. The patie nt was started on Entresto. Kidney function declined. Physical Examination: Vital Signs: Blood pressure 110/58, pulse of 76, afebrile. Chest: Faint rales bilateral. Heart: S1, S2. Systolic murmur. Abdomen: Soft, nontender. Extremities: Trace edema. Neurologic: Alert. No focality. Laboratory Data: Chest x-ray: Cardiomegaly, mild congestion, look better than before. Hemoglobin 9 .7. Sodium 136, potassium 4.1, bicarb 28, BUN 73, creatinine 4.3, GFR of 13, calcium 8.8. BNP 14,0 00. Current Medications: 1. Lasix has been discontinued. 2. Entresto has been discontinued. 3. Levofloxacin. 4. IV iron. 5. Isosorbide. 6. Metoprolol. 7. Pantoprazole. Assessment And Plan: 1. Acute kidney injury secondary to poor perfusion ATN. I agree with holding the Entresto. We will we will follow up the patient. Discontinue Lasix, discontinue spironolactone, and discontinue isosor bide. We will follow up. 2. Atrial fibrillation. Follow up with Primary and Cardiology. 3. Hypertension with the presence of low blood pressure. Hold above blood pressure medication. 4. Iron-deficiency anemia. Continue IV iron. 5. Pneumonia. Decrease levofloxacin to 250. MA/MODL Voice ID: [id number] Report ID: [id number]
[2024-06-13 07:11] LABS: Absolute Basophils 0.1 K/uL (0-0.5); Absolute Eosinophils 0.5 K/uL (0-0.5); Absolute Lymphocytes (CBC) 1.2 K/uL (0.7-4.9); Absolute Monocytes 0.8 K/uL (0.1-1.3); Absolute Neutrophil 8.9 K/uL (1.8-8.0); Basophils % 0.8 % (0-1.3); Eosinophils % 4.3 % (0-4.4); Hematocrit 31.5 % (39.6-49.0); Hemoglobin 10.2 g/dL (13.6-17.9); Lymphocytes % 10.8 % (15.3-44.8); MCH 28.7 pg (27.0-35.0); MCHC 32.4 g/dL (32.0-36.0); MCV 88.7 fL (80-100); MPV 7.4 fL (7.6-11.3); Monocytes % 7.1 % (3.3-12.3); Nucleated Red Blood Cells % 0.2 % (0-0); Platelets 272 thou/uL (152-406); RBC Red Blood Cell Count 3.56 M/uL (4.33-5.43); Red Cell Distribution Width 18.3 % (12.1-15.2)
[2024-06-13 07:27] LABS: Albumin 2.8 g/dL (3.4-5.0); Albumin/Globulin Ratio 0.7 (1.1-1.8); Bilirubin Total 0.5 mg/dL (0.2-1.0); Magnesium 2.5 mg/dL (1.6-2.4); Phosphorus 4.6 mg/dL (2.5-4.9); Protein, Total 6.8 g/dL (6.4-8.2)
[2024-06-13] MEDS ORDERED: Levofloxacin500mg IV 500 MG/100 ML BAG IV SCH (09:00)
--- NOTE | 2024-06-13 14:28 | P.PN ---
Subjective Date of Service: 06/13/24 Primary Care Provider: Summer Chief Complaint: SOB Subjective: No new changes Patient is improving we can move him to tele per Dr. Espinal. states he is tired of coming to the hospital every week Review of Systems 10-point ROS is otherwise unremarkable Neurological: Other (lethargic ) Physical Examination - Vital Signs Temperature: 98.3 F Blood Pressure: 125/74 Pulse: 53 Respirations: 16 Pulse Ox (%): 100 - Physical Exam General: In no apparent distress, Other (lethargic after morphine ) HEENT: Atraumatic, PERRLA, EOMI Neck: Supple, JVD not distended Respiratory: Clear to auscultation bilaterally, Normal air movement Cardiovascular: Regular rate/rhythm, Normal S1 S2 Gastrointestinal: Normal bowel sounds, No tenderness Musculoskeletal: No tenderness Integumentary: No rashes Neurological: Normal speech, Normal tone, Normal affect Lymphatics: No axilla or inguinal lymphadenopathy - Studies Microbiology Data (last 24 hrs): 06/07/24 04:54 Blood - Blood Aerobic Blood Culture - Final Staphylococcus Lugdunensis Streptococcus Salivarius 06/07/24 04:54 Blood - Blood Blood Culture Gram Stain - Final 06/07/24 04:54 Blood - Blood Anaerobic Blood Culture - Final Staphylococcus Lugdunensis Streptococcus Salivarius 06/07/24 04:54 Blood - Blood Gram Stain - Final Medications List Reviewed: Yes Assessment And Plan - Current Problems (Diagnosis) (1) Acute on chronic combined systolic and diastolic heart failure Current Visit: Yes Status: Acute Plan: Dr. Espinal consulted. Will keep him on bipap. Send the patient to the icu. Start lasix drip. 2.5.25 switched to metoprolol (2) CKD stage 4 due to type 2 diabetes mellitus Current Visit: Yes Status: Chronic Plan: consult to Dr. Torres. Considering his poor chronic renal function. He is an ideal patient for entresto or kerendia. The family has difficulty with expenses Will need to consult social service manager for some low cost programs 2.8 patient has worsening creatine. Will stop the entresto. Will hold the isosorbide till bp improves (3) Atrial fibrillation Current Visit: No Status: Chronic Plan: will restart his carvedilol when chf is better controlled Qualifiers: Atrial fibrillation type: longstanding persistent Qualified Code(s): I48.11 - Longstanding persistent atrial fibrillation (4) Diabetes mellitus Onset Date: 05/22/15 Current Visit: No Status: Chronic Qualifiers: Diabetes mellitus type: type 2 Diabetes mellitus longterm insulin use: without longterm use Diabetes mellitus complication status: with neurologic complications Diabetes mellitus complication detail: with polyneuropathy Qualified Code(s): E11.42 - Type 2 diabetes mellitus with diabetic polyneuropathy (5) Hypertension Current Visit: No Status: Chronic Qualifiers: Hypertension type: primary hypertension Qualified Code(s): I10 - Essential (primary) hypertension (6) COPD (chronic obstructive pulmonary disease) Current Visit: Yes Status: Acute Plan: will start him on levalbuterol. If no improvement may need to start steroids. Qualifiers: COPD type: chronic bronchitis Chronic bronchitis type: unspecified Qualified Code(s): J42 - Unspecified chronic bronchitis (7) Staphylococcus aureus bacteremia Current Visit: Yes Status: Acute Plan: switch her levaquin per the [place] guide (8) Syncopal episodes Current Visit: Yes Status: Acute Plan: patient was found hypotensive in the bathroom. Will hold his bp meds Qualifiers: Syncope type: vasovagal syncope Qualified Code(s): R55 - Syncope and collapse Discharge Plan: Half-Way Plan to discharge in: 48 Hours - Code Status/Comfort Care Code Status Assessed: No Physician Review: Patient Assessed, Agree with Above Assessment and Plan Critical Care: No Time Spent Managing PTS Care (In Minutes): 20
[2024-06-13] MEDS: ACETAMINOPHEN 325 MG TABLET PO SCH (17:07)
--- NOTE | 2024-06-13 23:07 | PN ---
Date of Progress Note: 06/13/2024 Subjective: The patient was admitted to the hospital with cardiorenal syndrome. The patient had acu te kidney injury secondary to spironolactone/Entresto. The patient's diuresis has been discontinued. Yesterday, we gave IV fluid. Kidney function continues to decline. The patient is still nonoligur ic uric. Physical Examination: Vital Signs: When I saw the patient, blood pressure 111/72, pulse of 86, afebrile. Chest: Crackles bilateral. Heart: S1, S2. Systolic murmur. Irregular. Abdomen: Soft, nontender. Extremities: Plus edema. Neurologic: Alert. No focality. Laboratory Data: Hemoglobin 10.2. Sodium 138, potassium 4, bicarb 28, BUN 72, creatinine 4.4, calci um 8.8, phosphorus 4.6, magnesium 2.5, albumin 2.8. Corrected calcium 9.6. Current Medications: Include: 1. Levaquin. 2. Flomax. 3. IV iron. 4. Eliquis. 5. Amiodarone. 6. Tylenol. 7. Levothyroxine. 8. IV fluid. Assessment And Plan: Acute kidney injury secondary to cardiorenal, nonoliguric. No hyperkalemia. N o significant acidosis. The patient slightly on the wet side. 1. I am going to go ahead and keep holding Entresto, keep holding spironolactone. Discontinue IV flu id. I had a long discussion with the patient regarding if kidney function continues to decline, the patient may need renal replacement therapy. The is patient on agreement. I spoke to the daughter at [phone] and explained to her and she is also in agreement. I am going to go ahead and place th e patient on n.p.o. after midnight and we will follow up the lab in the morning, then we will decide if the patient is going to need to have dialysis or not. 2. Hypertension, controlled optimal, continue current treatment. 3. Secondary hyperparathyroidism, stable. 4. Congestive heart failure with cardiorenal syndrome, discontinued Lasix, discontinued IV fluid. We will follow up the patient. PAT Voice ID: [id number] Report ID: [id number]
[2024-06-14 05:24] LABS: Absolute Eosinophils 0.5 K/uL (0-0.5); Absolute Lymphocytes (CBC) 1.5 K/uL (0.7-4.9); Absolute Monocytes 0.8 K/uL (0.1-1.3); Absolute Neutrophil 7.3 K/uL (1.8-8.0); Basophils % 0.5 % (0-1.3); Eosinophils % 4.7 % (0-4.4); Hematocrit 30.3 % (39.6-49.0); Hemoglobin 9.9 g/dL (13.6-17.9); Lymphocytes % 14.8 % (15.3-44.8); MCH 28.9 pg (27.0-35.0); MCHC 32.5 g/dL (32.0-36.0); MCV 88.9 fL (80-100); MPV 7.4 fL (7.6-11.3); Monocytes % 8.3 % (3.3-12.3); Neutrophils % 71.7 % (41.7-73.7); Platelets 252 thou/uL (152-406); RBC Red Blood Cell Count 3.41 M/uL (4.33-5.43); Red Cell Distribution Width 18.8 % (12.1-15.2)
[2024-06-14 05:56] LABS: ALT/SGPT 16 U/L (16-61); Albumin 2.6 g/dL (3.4-5.0); Albumin/Globulin Ratio 0.7 (1.1-1.8); Alkaline Phosphatase 84 U/L (45-117); Anion Gap 11.1 mEq/L (5.0-15.0); BUN Blood Urea Nitrogen 71 mg/dL (7-18); Bicarbonate 29 mEq/L (21-32); Bilirubin Total 0.4 mg/dL (0.2-1.0); Globulin 3.7 g/dL (2.3-3.5); Glomerular Filtration Rate 12 ml/min (=/>90); Glucose Level 112 mg/dL (74-106); Phosphorus 5.1 mg/dL (2.5-4.9); Potassium 4.1 mEq/L (3.5-5.1); Protein, Total 6.3 g/dL (6.4-8.2); Sodium Level 139 mEq/L (136-145)
[2024-06-14] MEDS: METOPROLOL XL 25 MG TAB PO SCH (06:03)
[2024-06-14 06:14] LABS: AST/SGOT < 10 U/L (15-37)
[2024-06-14 09:25] LABS: PT Prothrombin Time 27.2 SECONDS (9.4-12.5); Protime INR 2.62
--- NOTE | 2024-06-14 12:30 | P.PN ---
Subjective Date of Service: 06/14/24 Primary Care Provider: Summer Chief Complaint: SOB Subjective: No new changes, No C/O voiced, Tolerating diet, Ambulating, Improving Review of Systems 10-point ROS is otherwise unremarkable Physical Examination - Vital Signs Temperature: 97.1 F Blood Pressure: 114/76 Pulse: 90 Respirations: 16 Pulse Ox (%): 99 - Physical Exam General: Alert, In no apparent distress HEENT: Atraumatic, PERRLA, EOMI Neck: Supple, JVD not distended Respiratory: Clear to auscultation bilaterally, Normal air movement Cardiovascular: Regular rate/rhythm, Normal S1 S2 Gastrointestinal: Normal bowel sounds, No tenderness Musculoskeletal: No tenderness Integumentary: No rashes Neurological: Normal speech, Normal tone, Normal affect Lymphatics: No axilla or inguinal lymphadenopathy - Studies Microbiology Data (last 24 hrs): 06/07/24 04:54 Blood - Blood Aerobic Blood Culture - Final Staphylococcus Lugdunensis Streptococcus Salivarius 06/07/24 04:54 Blood - Blood Blood Culture Gram Stain - Final 06/07/24 04:54 Blood - Blood Anaerobic Blood Culture - Final Staphylococcus Lugdunensis Streptococcus Salivarius 06/07/24 04:54 Blood - Blood Gram Stain - Final Medications List Reviewed: Yes Assessment And Plan - Current Problems (Diagnosis) (1) Acute on chronic combined systolic and diastolic heart failure Current Visit: Yes Status: Acute Plan: Echo shows moderate reduced LV systolic function, DD, moderate to severe MR and elevated filling pressures. Patient diuresed well during hospital stay but kidney function keep worsening, so nephrology is planing dialysis. 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 (2) Type 2 SD (myocardial infarction) Current Visit: Yes Status: Acute Plan: troponin mild elevated, patient with hx of CAD multiple PCIs, troponin elevation is most likely type 2 SD from CHF/PNA ok to stop Heparin ASA 81 mg daily (3) Atrial fibrillation Current Visit: No Status: Chronic Plan: continue amiodarone 200 mg po BID continue Toprol XL 25 mg daily continue Eliquis 5 mg po BID Qualifiers: (4) Hypertension Current Visit: No Status: Chronic Plan: reconcile and resume home medications Qualifiers: Hypertension type: primary hypertension Qualified Code(s): I10 - Essential (primary) hypertension Physician Review: Patient Assessed, Agree with Above Assessment and Plan
--- NOTE | 2024-06-14 13:19 | P.PN ---
Subjective Date of Service: 06/14/24 Primary Care Provider: Summer Chief Complaint: SOB Subjective: No new changes Patient is improving we can move him to tele per Dr. Espinal. states he is tired of coming to the hospital every week Review of Systems 10-point ROS is otherwise unremarkable Physical Examination - Vital Signs Temperature: 97.1 F Blood Pressure: 114/76 Pulse: 90 Respirations: 16 Pulse Ox (%): 99 - Physical Exam General: Alert, In no apparent distress HEENT: Atraumatic, PERRLA, EOMI Neck: Supple, JVD not distended Respiratory: Clear to auscultation bilaterally, Normal air movement Cardiovascular: Regular rate/rhythm, Normal S1 S2 Gastrointestinal: Normal bowel sounds, No tenderness Musculoskeletal: No tenderness Integumentary: No rashes Neurological: Normal speech, Normal tone, Normal affect Lymphatics: No axilla or inguinal lymphadenopathy - Studies Microbiology Data (last 24 hrs): 06/07/24 04:54 Blood - Blood Aerobic Blood Culture - Final Staphylococcus Lugdunensis Streptococcus Salivarius 06/07/24 04:54 Blood - Blood Blood Culture Gram Stain - Final 06/07/24 04:54 Blood - Blood Anaerobic Blood Culture - Final Staphylococcus Lugdunensis Streptococcus Salivarius 06/07/24 04:54 Blood - Blood Gram Stain - Final Medications List Reviewed: Yes Assessment And Plan - Current Problems (Diagnosis) (1) CKD stage 4 due to type 2 diabetes mellitus Current Visit: Yes Status: Chronic Plan: consult to Dr. Torres. Considering his poor chronic renal function. [facility] The family has difficulty with expenses Will need to consult geriatric social work professor for some low cost programs 2.10 Possible dialysis for the patient . Will get stat labs and check potassium and PT. Will then discuss with Dr. Hale if he needs a catheter for dialysis (2) Atrial fibrillation Current Visit: No Status: Chronic Plan: will restart his carvedilol when chf is better controlled Qualifiers: Atrial fibrillation type: longstanding persistent Qualified Code(s): I48.11 - Longstanding persistent atrial fibrillation (3) Diabetes mellitus Onset Date: 05/22/15 Current Visit: No Status: Chronic Qualifiers: Diabetes mellitus type: type 2 Diabetes mellitus snf insulin use: without snf use Diabetes mellitus complication status: with neurologic complications Diabetes mellitus complication detail: with polyneuropathy Qualified Code(s): E11.42 - Type 2 diabetes mellitus with diabetic polyneuropathy (4) Hypertension Current Visit: No Status: Chronic Qualifiers: Hypertension type: primary hypertension Qualified Code(s): I10 - Essential (primary) hypertension (5) COPD (chronic obstructive pulmonary disease) Current Visit: Yes Status: Acute Plan: will start him on levalbuterol. If no improvement may need to start steroids. Qualifiers: COPD type: chronic bronchitis Chronic bronchitis type: unspecified Qualified Code(s): J42 - Unspecified chronic bronchitis (6) Staphylococcus aureus bacteremia Current Visit: Yes Status: Acute Plan: switch her levaquin per the [place] guide (7) Syncopal episodes Current Visit: Yes Status: Acute Plan: patient was found hypotensive in the bathroom. Will hold his bp meds Qualifiers: Syncope type: vasovagal syncope Qualified Code(s): R55 - Syncope and collapse (8) Acute on chronic combined systolic and diastolic heart failure Current Visit: Yes Status: Resolved Plan: Dr. Espinal consulted. Will keep him on bipap. Send the patient to the icu. Start lasix drip. 2.5.25 switched to metoprolol Discharge Plan: Home Plan to discharge in: 24 Hours - Code Status/Comfort Care Code Status Assessed: No Physician Review: Patient Assessed, Agree with Above Assessment and Plan Critical Care: No Time Spent Managing PTS Care (In Minutes): 25
[2024-06-14 15:01] LABS: PT Prothrombin Time 25.1 SECONDS (9.4-12.5); Protime INR 2.41
[2024-06-14 15:13] LABS: ALT/SGPT 16 U/L (16-61); Albumin 2.8 g/dL (3.4-5.0); Albumin/Globulin Ratio 0.7 (1.1-1.8); Alkaline Phosphatase 84 U/L (45-117); Anion Gap 10.4 mEq/L (5.0-15.0); BUN Blood Urea Nitrogen 73 mg/dL (7-18); Bicarbonate 28 mEq/L (21-32); Bilirubin Total 0.4 mg/dL (0.2-1.0); Glomerular Filtration Rate 12 ml/min (=/>90); Glucose Level 136 mg/dL (74-106); Potassium 4.4 mEq/L (3.5-5.1); Protein, Total 6.8 g/dL (6.4-8.2); Sodium Level 138 mEq/L (136-145)
[2024-06-14 15:14] LABS: AST/SGOT < 10 U/L (15-37)
--- NOTE | 2024-06-14 15:43 | CON ---
Date of Consultation: 06/14/2024 Diagnoses: Renal insufficiency, renal failure. History Of Present Illness: This is the case of a 74-year-old patient with multiple medical problems including CAD, atrial fibrillation, aortic stenosis status post replacement of aortic valve last Jan, chronic kidney disease, admitted to the hospital for respiratory issues and other medical iss ues, has been here for a few days. Recently, saw the kidney function deteriorating and a considerati on for hemodialysis was done and brought yesterday. I read Dr. Ng's note since the patient can not give too much information. Past Medical History: As above. Current Medications: Include Eliquis, amiodarone, and Levaquin. Past Surgical History: Past surgeries include aortic valve replacement in January, abdominal aorti c aneurysm repair in 2015, nose surgery, tonsillectomy, back surgery, cardiac cath with stent placeme nt x5. Medical Problems: Again include [place], diabetes, hypertension, atrial fibrillation, congestive heart fa ilure, TIAs, COPD. Family History: Hypertension, heart disease. Social History: He does not smoke. He does not drink alcohol. Review of Systems: Unable to be obtained. Physical Examination: Vital Signs: Reviewed. General: The patient is awake and alert. HEENT: Pupils anicteric. Neck: Supple. Chest: Bilateral breath sounds. Abdomen: Soft and depressible. No guarding or rebound. Extremities: Good capillary refill. Laboratory Data: Blood work shows WBC count of 10.2, hemoglobin of 9.9, and platelets of 252. The I NR the one we have on record is 3.34. We just repeated the INR to see and it came down to 2.62. Pot assium is 4.1 with a creatinine of 4.72 and BUN is 71, glucose 112. Assessment: A 74-year-old patient needs a hemodialysis catheter. I saw the note from Dr. Ng. He is working on the final decision to place a dialysis catheter, so we are going to place the patie nt n.p.o. after midnight leaving a time to just do the final assessment. Also, INR of 1.5 will be id eal for this procedure, 3 is a little bit too high. We have to find out reynolds 2.6 and see if there is any way he can be brought back safely. I will check with Dr. Wheeler and Dr. Ng to see how come we have to obtain this catheter, so he can get dialysis. MALLORY/MODL Voice ID: [id number] Report ID: [id number]
--- NOTE | 2024-06-15 02:58 | PN ---
Date of Progress Note: 06/14/2024 Chief Complaint: Acute kidney injury on chronic kidney disease. Subjective: The patient has cardiorenal syndrome. He was taken off Entresto because of acute kidney injury and diuretic dose was decreased because of creatinine and BUN were elevated. The patient's k idney function has declined due to diuretics and currently diuretic is relatively decreased. Review of Systems: The patient denies fever and chills. Denies chest pain, palpitation, syncope. Physical Examination: Lungs: Clear to auscultation bilaterally. Heart S1, S2. Abdomen: Soft. Extremities: Edema present in both legs. Laboratory Data: Sodium 138, potassium 4, bicarbonate 28, BUN 72, creatinine 4.4, calcium 8.8, album in 2.8, corrected calcium 9.6. Impression And Plan: 1. The patient has acute kidney injury secondary to cardiorenal syndrome and nonoliguric acute tubula r necrosis. There is are no hyperkalemia. IV fluids hyperkalemia. The patien t will need the renal replacement therapy. 2. Hypertension. Blood pressure controlled. Continue current treatment. 3. Secondary hyperparathyroidism. Monitor calcium and phosphorus level. 4. Hypercalcinemia. Monitor urine culture and creatinine ratio. EB/MODL Voice ID: [id number] Report ID: [id number]
[2024-06-15 05:47] LABS: Absolute Basophils 0.1 K/uL (0-0.5); Absolute Eosinophils 0.4 K/uL (0-0.5); Absolute Lymphocytes (CBC) 1.4 K/uL (0.7-4.9); Absolute Monocytes 0.9 K/uL (0.1-1.3); Absolute Neutrophil 8.6 K/uL (1.8-8.0); Basophils % 0.6 % (0-1.3); Eosinophils % 3.7 % (0-4.4); Hematocrit 29.8 % (39.6-49.0); Hemoglobin 9.8 g/dL (13.6-17.9); Lymphocytes % 12.1 % (15.3-44.8); MCV 87.9 fL (80-100); MPV 7.5 fL (7.6-11.3); Monocytes % 7.8 % (3.3-12.3); Neutrophils % 75.8 % (41.7-73.7); Platelets 208 thou/uL (152-406); RBC Red Blood Cell Count 3.39 M/uL (4.33-5.43)
[2024-06-15 05:58] LABS: PT Prothrombin Time 21.7 SECONDS (9.4-12.5); Protime INR 2.08
[2024-06-15 06:12] LABS: ALT/SGPT 16 U/L (16-61); Albumin 2.8 g/dL (3.4-5.0); Albumin/Globulin Ratio 0.7 (1.1-1.8); Alkaline Phosphatase 78 U/L (45-117); Anion Gap 10.9 mEq/L (5.0-15.0); BUN Blood Urea Nitrogen 66 mg/dL (7-18); Bicarbonate 28 mEq/L (21-32); Bilirubin Total 0.4 mg/dL (0.2-1.0); Globulin 3.8 g/dL (2.3-3.5); Glomerular Filtration Rate 13 ml/min (=/>90); Glucose Level 108 mg/dL (74-106); Phosphorus 4.3 mg/dL (2.5-4.9); Potassium 3.9 mEq/L (3.5-5.1); Protein, Total 6.6 g/dL (6.4-8.2); Sodium Level 139 mEq/L (136-145)
[2024-06-15 06:15] LABS: AST/SGOT < 10 U/L (15-37)
[2024-06-15] MEDS: POTASSIUM CL SA 10 MEQ TAB PO ONE (07:58)
--- NOTE | 2024-06-15 11:55 | P.PN ---
Subjective Date of Service: 06/15/24 Primary Care Provider: Summer Chief Complaint: SOB Subjective: No new changes, No C/O voiced, Tolerating diet, Ambulating, Improving Review of Systems 10-point ROS is otherwise unremarkable Physical Examination - Vital Signs Temperature: 97.9 F Blood Pressure: 134/88 Pulse: 78 Respirations: 20 Pulse Ox (%): 99 - Physical Exam General: Alert, In no apparent distress HEENT: Atraumatic, PERRLA, EOMI Neck: Supple, JVD not distended Respiratory: Clear to auscultation bilaterally, Normal air movement Cardiovascular: Regular rate/rhythm, Normal S1 S2 Gastrointestinal: Normal bowel sounds, No tenderness Musculoskeletal: No tenderness Integumentary: No rashes Neurological: Normal speech, Normal tone, Normal affect Lymphatics: No axilla or inguinal lymphadenopathy - Studies Medications List Reviewed: Yes Assessment And Plan - Current Problems (Diagnosis) (1) Acute on chronic combined systolic and diastolic heart failure Current Visit: Yes Status: Resolved Plan: Echo shows moderate reduced LV systolic function, DD, moderate to severe MR and elevated filling pressures. Patient diuresed well during hospital stay but kidney function keep worsening, so nephrology is monitoring kidney function with plans for possible dialysis. 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 (2) Type 2 MD (myocardial infarction) Current Visit: Yes Status: Acute Plan: troponin mild elevated, patient with hx of CAD multiple PCIs, troponin elevation is most likely type 2 MD from CHF/PNA ASA 81 mg daily (3) Atrial fibrillation Current Visit: No Status: Chronic Plan: continue amiodarone 200 mg po BID continue Toprol XL 25 mg daily continue Eliquis 5 mg po BID Qualifiers: (4) Hypertension Current Visit: No Status: Chronic Plan: BP is well controlled on Metoprolol Cardiology will sign off, call with any questions. Qualifiers: Hypertension type: primary hypertension Qualified Code(s): I10 - Essential (primary) hypertension Physician Review: Patient Assessed, Agree with Above Assessment and Plan
--- NOTE | 2024-06-15 12:05 | P.PN ---
Subjective Date of Service: 06/15/24 Primary Care Provider: Summer Chief Complaint: SOB Subjective: New changes (improving creatine) Patient is improving we can move him to tele per Dr. Espinal. states he is tired of coming to the hospital every week Review of Systems 10-point ROS is otherwise unremarkable Physical Examination - Vital Signs Temperature: 97.9 F Blood Pressure: 134/88 Pulse: 78 Respirations: 20 Pulse Ox (%): 99 - Physical Exam General: Alert, In no apparent distress HEENT: Atraumatic, PERRLA, EOMI Neck: Supple, JVD not distended Respiratory: Clear to auscultation bilaterally, Normal air movement Cardiovascular: Regular rate/rhythm, Normal S1 S2 Gastrointestinal: Normal bowel sounds, No tenderness Musculoskeletal: No tenderness Integumentary: No rashes Neurological: Normal speech, Normal tone, Normal affect Lymphatics: No axilla or inguinal lymphadenopathy - Studies Medications List Reviewed: Yes Assessment And Plan - Current Problems (Diagnosis) (1) CKD stage 4 due to type 2 diabetes mellitus Current Visit: Yes Status: Chronic Plan: consult to Dr. Torres. Considering his poor chronic renal function. He is an ideal patient for [employer] or [facility]. The family has difficulty with expenses Will need to consult social contact worker for some low cost programs 2.11 dialysis is being held. (2) Atrial fibrillation Current Visit: No Status: Chronic Plan: will restart his carvedilol when chf is better controlled Qualifiers: Atrial fibrillation type: longstanding persistent Qualified Code(s): I48.11 - Longstanding persistent atrial fibrillation (3) Diabetes mellitus Onset Date: 05/22/15 Current Visit: No Status: Chronic Qualifiers: Diabetes mellitus type: type 2 Diabetes mellitus long chain quiller tender insulin use: without penitentiary use Diabetes mellitus complication status: with neurologic complications Diabetes mellitus complication detail: with polyneuropathy Qualified Code(s): E11.42 - Type 2 diabetes mellitus with diabetic polyneuropathy (4) Hypertension Current Visit: No Status: Chronic Qualifiers: Hypertension type: primary hypertension Qualified Code(s): I10 - Essential (primary) hypertension (5) COPD (chronic obstructive pulmonary disease) Current Visit: Yes Status: Acute Plan: will start him on levalbuterol. If no improvement may need to start steroids. Qualifiers: COPD type: chronic bronchitis Chronic bronchitis type: unspecified Qualified Code(s): J42 - Unspecified chronic bronchitis (6) Staphylococcus aureus bacteremia Current Visit: Yes Status: Acute Plan: switch her levaquin per the [place] guide (7) Syncopal episodes Current Visit: Yes Status: Acute Plan: patient was found hypotensive in the bathroom. Will hold his bp meds Qualifiers: Syncope type: vasovagal syncope Qualified Code(s): R55 - Syncope and collapse (8) Acute on chronic combined systolic and diastolic heart failure Current Visit: Yes Status: Resolved Plan: Dr. Espinal consulted. Will keep him on bipap. Send the patient to the icu. Start lasix drip. 2.5.25 switched to metoprolol Discharge Plan: Home Plan to discharge in: 24 Hours - Code Status/Comfort Care Code Status Assessed: No Physician Review: Patient Assessed, Agree with Above Assessment and Plan Critical Care: No Time Spent Managing PTS Care (In Minutes): 20
--- NOTE | 2024-06-15 12:51 | EKG ---
Test Date: 2024-06-12 Test Time: 10:46:07 Brokerage Coordinator: ELKE MEASUREMENT RESULTS: Intervals: Rate: 87 NH: QRSD: 116 QT: 416 QTc: 500 [place]: P: NH: QRS: 44 T: 167 INTERPRETIVE STATEMENTS: Atrial fibrillation Inferior infarct, age undetermined Prolonged QT Abnormal ECG Compared to ECG 06/09/2024 10:02:29 Myocardial infarct finding now present Prolonged QT interval now present ST (T wave) deviation no longer present Electronically Signed On 06-15-24 12:45:00 ROTO GRAVURE PRESS OPERATOR by Chaka Espinal
--- NOTE | 2024-06-15 12:58 | EKG ---
Test Date: 2024-06-09 Test Time: 10:02:29 Logistics Specialist: SILAS MEASUREMENT RESULTS: Intervals: Rate: 113 ID: QRSD: 114 QT: 356 QTc: 488 [place]: P: ID: QRS: [id number] T: 72 INTERPRETIVE STATEMENTS: Atrial fibrillation with rapid ventricular response Nonspecific ST abnormality, probably digitalis effect Abnormal ECG Compared to ECG 06/07/2024 04:54:30 ST (T wave) deviation now present Sinus rhythm no longer present Ventricular premature complex(es) no longer present Intraventricular conduction delay no longer present Prolonged QT interval no longer present Electronically Signed On 06-15-24 12:49:34 PREDATORY GAME HUNTER by Chaka Espinal
--- NOTE | 2024-06-15 13:54 | PN ---
Date of Progress Note: 06/15/2024 Diagnosis: Renal insufficiency. I received a phone call today. Dr. Ng, the renal doctor, believed there was no longer need for hemodialysis. So the placement of hemodialysis was put on hold. The patient is happy. I am happy for him too. I explained to him on how this works and may change the same on what I explained to hi m about placement of hemodialysis catheter yesterday and the risks, which include infection, bleeding , damage to adjacent structures, pneumothorax, hemothorax, cardiac arrhythmias, pericarditis, always still the same, but I am glad he does not need it now. If in the next few days, he needs the cathete r because his renal function deteriorates, then we will once again assess the issue and put him on schedule again. Hopefully, that never happens. Patient is very happy. Please re-consult maddie TEJADA/YESY Voice ID: [id number] Report ID: [id number]
[2024-06-15] MEDS: levoFLOXacin 250 MG TAB PO SCH (16:38)
[2024-06-16 05:39] LABS: Albumin 2.5 g/dL (3.4-5.0); Anion Gap 10.1 mEq/L (5.0-15.0); Phosphorus 3.7 mg/dL (2.5-4.9); Potassium 4.1 mEq/L (3.5-5.1)
--- NOTE | 2024-06-16 09:32 | P.PN ---
Subjective Date of Service: 06/16/24 Primary Care Provider: Summer Chief Complaint: SOB Patient is improving creatine. Review of Systems 10-point ROS is otherwise unremarkable Physical Examination - Vital Signs Temperature: 98.0 F Blood Pressure: 116/59 Pulse: 85 Respirations: 18 Pulse Ox (%): 100 - Physical Exam General: Alert, In no apparent distress HEENT: Atraumatic, PERRLA, EOMI Neck: Supple, JVD not distended Respiratory: Clear to auscultation bilaterally, Normal air movement Cardiovascular: Regular rate/rhythm, Normal S1 S2 Gastrointestinal: Normal bowel sounds, No tenderness Musculoskeletal: No tenderness Integumentary: No rashes Neurological: Normal speech, Normal tone, Normal affect Lymphatics: No axilla or inguinal lymphadenopathy - Studies Medications List Reviewed: Yes Assessment And Plan - Current Problems (Diagnosis) (1) CKD stage 4 due to type 2 diabetes mellitus Current Visit: Yes Status: Chronic Plan: consult to Dr. Torres. Considering his poor chronic renal function. He is an ideal patient for [employer] or [employer]. The family has difficulty with expenses Will need to consult social media editor for some low cost programs 2.12 creatine is continue to improve. No plans for dialysis. potassium is normal Will keep him in house till the patient creatine is back in stage 4 or better. 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 If no improvement may need to start steroids. Qualifiers: COPD type: chronic bronchitis Chronic bronchitis type: unspecified Qualified Code(s): J42 - Unspecified chronic bronchitis (6) Staphylococcus aureus bacteremia Current Visit: Yes Status: Acute Plan: switch her levaquin per the Melvin guide (7) Syncopal episodes Current Visit: Yes Status: Acute Plan: patient was found hypotensive in the bathroom. Will hold his bp meds Qualifiers: Syncope type: vasovagal syncope Qualified Code(s): R55 - Syncope and collapse (8) Acute on chronic combined systolic and diastolic heart failure Current Visit: Yes Status: Resolved Plan: Dr. Espinal consulted. Will keep him on bipap. Send the patient to the icu. Start lasix drip. 2.5.25 switched to metoprolol Discharge Plan: Half-Way Plan to discharge in: 48 Hours - Code Status/Comfort Care Code Status Assessed: No Physician Review: Patient Assessed, Agree with Above Assessment and Plan Time Spent Managing PTS Care (In Minutes): 20
[2024-06-16] MEDS: FUROSEMIDE 40 MG/4 ML VIAL IV ONE (12:37)
--- NOTE | 2024-06-16 13:35 | RAD REPORT ---
EXAMINATION: ONE VIEW CHEST XR CLINICAL INDICATION: COPD TECHNIQUE: Frontal chest projection is submitted. Examination is limited by patient positioning and t echnique. COMPARISON: 06/12/2024 FINDINGS: The lungs are mildly emphysematous but clear. The heart is mildly enlarged in size. No displaced frac tures identified. IMPRESSION: No acute intrathoracic abnormalities. Mild COPD.
--- NOTE | 2024-06-16 16:29 | PN ---
Date of Progress Note: 06/16/2024 Subjective: The patient was admitted with cardiorenal syndrome. The patient managed with BiPAP. Th e patient was diuresed. Kidney function improved and was also started on spironolactone, Entresto. Kidney function deteriorated. The patient still nonoliguric. Objective: Vital Signs: Blood pressure 116/59, pulse of 85. Chest: Crackles, bilateral. Heart: S1, S2. Regular. Abdomen: Soft, nontender. Extremities: No clubbing. Trace edema. Neurologic: Alert. No focality. No tremor. Laboratory Data: Hemoglobin 9.8, sodium 140, potassium 4.1, bicarb 27, BUN 59, creatinine 4.1, calci um 8.4, phosphorus 3.7. Current Medications: The patient is on include levofloxacin, IV iron, Eliquis, hydralazine, metoprol ol, Tylenol, Keppra, calcitriol. Assessment And Plan: 1. Acute kidney injury secondary to cardiorenal, superimposed with Entresto and spironolactone, on recovery, nonoliguric. No hyperkalemia or acidosis. Mild overvolume. I am going to go ahead and give the patient a single dose of Lasix today. I do not see the need to do any renal replacement the rapy for the time being and we will follow up closely. 2. Hypertension. Continue current treatment. Keep holding spironolactone and Entresto. 3. Congestive heart failure with exacerbation, as above. 4. Anemia of chronic kidney disease, stable. 5. Secondary hyperparathyroidism. Continue calcitriol. IVY/YESY Voice ID: [id number] Report ID: [id number]
[2024-06-17 05:05] LABS: Albumin 2.6 g/dL (3.4-5.0); Anion Gap 9.9 mEq/L (5.0-15.0); Phosphorus 3.4 mg/dL (2.5-4.9); Potassium 3.9 mEq/L (3.5-5.1)
--- NOTE | 2024-06-17 10:44 | P.PN ---
Subjective Date of Service: 06/17/24 Primary Care Provider: Summer Chief Complaint: SOB Patient is improving creatine. . walking in the hallway with PT Review of Systems 10-point ROS is otherwise unremarkable Physical Examination - Vital Signs Temperature: 97.9 F Blood Pressure: 172/87 Pulse: 86 Respirations: 16 Pulse Ox (%): 98 - Physical Exam General: Alert, In no apparent distress HEENT: Atraumatic, PERRLA, EOMI Neck: Supple, JVD not distended Respiratory: Clear to auscultation bilaterally, Normal air movement Cardiovascular: Regular rate/rhythm, Normal S1 S2 Gastrointestinal: Normal bowel sounds, No tenderness Musculoskeletal: No tenderness Integumentary: No rashes Neurological: Normal speech, Normal tone, Normal affect Lymphatics: No axilla or inguinal lymphadenopathy - Studies Medications List Reviewed: Yes Assessment And Plan - Current Problems (Diagnosis) (1) CKD stage 4 due to type 2 diabetes mellitus Current Visit: Yes Status: Chronic Plan: consult to Dr. Torres. Considering his poor chronic renal function. He is an ideal patient for [employer] or [employer]. The family has difficulty with expenses Will need to consult high school social studies tutor for some low cost programs 2.13 Slight improvement in his creatine. 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 If no improvement may need to start steroids. Qualifiers: COPD type: chronic bronchitis Chronic bronchitis type: unspecified Qualified Code(s): J42 - Unspecified chronic bronchitis (6) Staphylococcus aureus bacteremia Current Visit: Yes Status: Acute Plan: switch her levaquin per the Melvin guide (7) Syncopal episodes Current Visit: Yes Status: Acute Plan: patient was found hypotensive in the bathroom. Will hold his bp meds Qualifiers: Syncope type: vasovagal syncope Qualified Code(s): R55 - Syncope and collapse (8) Acute on chronic combined systolic and diastolic heart failure Current Visit: Yes Status: Resolved Plan: Dr. Espinal consulted. Will keep him on bipap. Send the patient to the icu. Start lasix drip. 2.5.25 switched to metoprolol Discharge Plan: [facility] Plan to discharge in: 24 Hours - Code Status/Comfort Care Code Status Assessed: No Physician Review: Patient Assessed, Agree with Above Assessment and Plan Critical Care: No Time Spent Managing PTS Care (In Minutes): 20
--- NOTE | 2024-06-17 12:25 | PN ---
Date of Progress Note: 06/17/2024 Subjective: The patient was admitted to the hospital with acute kidney injury secondary to cardioren al. The patient did not require any renal replacement therapy. Patient was diuresed. Entresto was discontinued. Yesterday, we resumed diuresis. Objective: Vital Signs: Blood pressure 172/87, pulse of 86, afebrile. Chest: Faint rales, bilateral. Heart: S1, S2. Systolic murmur. Abdomen: Soft, nontender. Extremities: Trace edema. Neurologic: Alert. No focality. No tremor. Laboratory Data: WBC 11.3, hemoglobin 9.8, sodium 141, potassium 3.9, bicarb 27, BUN 54, creatinine 3.9, continued to trend down. Calcium 8.8, phosphorus 3.4. Current Medications: The patient is on include: 1. IV iron. 2. Levaquin. 3. Amiodarone. 4. Metoprolol. 5. Tylenol. 6. The patient received Lasix yesterday. 7. Zofran. 8. Pantoprazole. 9. Levothyroxine. 10. Morphine. 11. Finasteride. Assessment And Plan: 1. Acute kidney injury secondary to cardiorenal/Entresto, continue to recover, nonoliguric, slightly on the wet side. I am going to resume Lasix daily. The patient will be cleared from the Renal stand point to discharge. Planned for to follow up in 2-3 weeks in the office. 2. Hypertension. Continue current treatment. Resume Lasix 40 mg daily. 3. Congestive heart failure with exacerbation. We are resuming the Lasix. Keep holding any Entresto or spironolactone for the time being. 4. Anemia of chronic kidney disease/iron-deficiency anemia, status post IV iron, stable. I am going to go ahead and give another dose of Retacrit and we will follow up the patient. 5. Secondary hyperparathyroidism, stable. Continue calcitriol. MA/MODL Voice ID: [id number] Report ID: [id number]
[2024-06-17] MEDS: EPOETIN ALFA-EPBX 10,000 UNIT/ML VIAL SQ ONE (16:13)
[2024-06-18 04:51] LABS: Albumin 2.6 g/dL (3.4-5.0); Anion Gap 11.1 mEq/L (5.0-15.0); Phosphorus 3.4 mg/dL (2.5-4.9); Potassium 4.1 mEq/L (3.5-5.1)
[2024-06-18] MEDS: FUROSEMIDE 40 MG/4 ML VIAL IV SCH (08:39)
--- NOTE | 2024-06-18 14:26 | P.PN ---
Subjective Date of Service: 06/18/24 Primary Care Provider: Summer Chief Complaint: SOB Subjective: No new changes Patient is improving creatine. . walking in the hallway with PT Review of Systems 10-point ROS is otherwise unremarkable Physical Examination - Vital Signs Temperature: 98.1 F Blood Pressure: 151/90 Pulse: 78 Respirations: 16 Pulse Ox (%): 100 - Physical Exam General: Alert, In no apparent distress HEENT: Atraumatic, PERRLA, EOMI Neck: Supple, JVD not distended Respiratory: Clear to auscultation bilaterally, Normal air movement Cardiovascular: Regular rate/rhythm, Normal S1 S2 Gastrointestinal: Normal bowel sounds, No tenderness Musculoskeletal: No tenderness Integumentary: No rashes Neurological: Normal speech, Normal tone, Normal affect Lymphatics: No axilla or inguinal lymphadenopathy - Studies Medications List Reviewed: Yes Assessment And Plan - Current Problems (Diagnosis) (1) CKD stage 4 due to type 2 diabetes mellitus Current Visit: Yes Status: Chronic Plan: consult to Dr. Torres. Considering his poor chronic renal function. He is an ideal patient for [employer] or [employer]. The family has difficulty with expenses Will need to consult social media strategist for some low cost programs 2.13 no improvement in his creatine (2) Atrial fibrillation Current Visit: No Status: Chronic Plan: will restart his carvedilol when chf is better controlled Qualifiers: Atrial fibrillation type: longstanding persistent Qualified Code(s): I48.11 - Longstanding persistent atrial fibrillation (3) Diabetes mellitus Onset Date: 05/22/15 Current Visit: No Status: Chronic Qualifiers: Diabetes mellitus type: type 2 Diabetes mellitus residential insulin use: without residential use Diabetes mellitus complication status: with neurologic complications Diabetes mellitus complication detail: with polyneuropathy Qualified Code(s): E11.42 - Type 2 diabetes mellitus with diabetic polyneuropathy (4) Hypertension Current Visit: No Status: Chronic Qualifiers: Hypertension type: primary hypertension Qualified Code(s): I10 - Essential (primary) hypertension (5) COPD (chronic obstructive pulmonary disease) Current Visit: Yes Status: Acute Plan: will start him on levalbuterol. If no improvement may need to start steroids. Qualifiers: COPD type: chronic bronchitis Chronic bronchitis type: unspecified Qualified Code(s): J42 - Unspecified chronic bronchitis (6) Staphylococcus aureus bacteremia Current Visit: Yes Status: Acute Plan: switch her levaquin per the Melvin guide (7) Syncopal episodes Current Visit: Yes Status: Acute Plan: patient was found hypotensive in the bathroom. Will hold his bp meds Qualifiers: Syncope type: vasovagal syncope Qualified Code(s): R55 - Syncope and collapse (8) Acute on chronic combined systolic and diastolic heart failure Current Visit: Yes Status: Resolved Plan: Dr. Espinal consulted. Will keep him on bipap. Send the patient to the icu. Start lasix drip. 2.5.25 switched to metoprolol Discharge Plan: Residential Plan to discharge in: 24 Hours - Code Status/Comfort Care Code Status Assessed: No Physician Review: Patient Assessed, Agree with Above Assessment and Plan Critical Care: No Time Spent Managing PTS Care (In Minutes): 20
--- NOTE | 2024-06-18 21:28 | PN ---
Date of Progress Note: 06/18/2024 Chief Complaint: Acute kidney injury, cardiorenal syndrome. History: The patient developed acute on chronic kidney injury, diuretics on hold. The patient is im proving gradually. Blood pressure is fluctuating, medications were adjusted to control blood pressur e. Entresto although was discontinued due to acute kidney injury. Review of Systems: Denies chest pain, palpitations. Physical Examination: Lungs: Clear to auscultation bilaterally. Heart: S1, S2. Abdomen: Soft, benign. Extremities: No edema. Impression And Plan: 1. Acute kidney injury secondary to cardiorenal syndrome. The patient developed worsening of the venita al function, Entresto is on hold. The patient has nonoliguric urine output. The patient is improvin g gradually and plan is to resume Lasix daily. 2. Hypertension. Continue current treatment. Resume Lasix 40 mg daily. 3. Congestive heart failure with exacerbation. Continue low-sodium diet and Lasix. Entresto on hold . 4. Anemia of chronic disease. Iron deficiency status post IV iron. H and H is stable. The patient will continue ESTHELA. EB/MODL Voice ID: [id number] Report ID: [id number]
[2024-06-19] MEDS ORDERED: ISOSORBIDE MONO SR 30 MG TAB PO SCH (09:00)
--- NOTE | 2024-06-19 11:33 | P.DS ---
Admission Date: 06/07/24 Discharge Date: 06/19/24 Primary Care Provider: Summer Disposition: TRANSFER TO GROUP HOME Discharge Condition: GOOD Reason for Admission: SOB - Problems (1) CKD stage 4 due to type 2 diabetes mellitus Current Visit: Yes Status: Chronic (2) Atrial fibrillation Current Visit: No Status: Chronic Qualifiers: Atrial fibrillation type: longstanding persistent Qualified Code(s): I48.11 - Longstanding persistent atrial fibrillation (3) Diabetes mellitus Onset Date: 05/22/15 Current Visit: No Status: Chronic Qualifiers: Diabetes mellitus type: type 2 Diabetes mellitus residential insulin use: without terminal makeup operator use Diabetes mellitus complication status: with neurologic complications Diabetes mellitus complication detail: with polyneuropathy Qualified Code(s): E11.42 - Type 2 diabetes mellitus with diabetic polyneuropathy (4) Hypertension Current Visit: No Status: Chronic Qualifiers: Hypertension type: primary hypertension Qualified Code(s): I10 - Essential (primary) hypertension (5) COPD (chronic obstructive pulmonary disease) Current Visit: Yes Status: Acute Qualifiers: COPD type: chronic bronchitis Chronic bronchitis type: unspecified Qualified Code(s): J42 - Unspecified chronic bronchitis (6) Staphylococcus aureus bacteremia Current Visit: Yes Status: Acute (7) Syncopal episodes Current Visit: Yes Status: Acute Qualifiers: Syncope type: vasovagal syncope Qualified Code(s): R55 - Syncope and collapse (8) Acute on chronic combined systolic and diastolic heart failure Current Visit: Yes Status: Resolved Brief History of Present Illness: Patient is a pleasant 74 year Extensive history of CAD, atrial fib, aortic stenosis, CHF and ckd stage 4 with a baseline creatine fo 3.5. He has been having shortness of breath for the last 3-4 days. Was sent to the hospital. He had to be put on a bipap. the patient is currently stable. Was seen by Dr Espinal. Started on a furosemide drip and will be admitted to the ICU. He has been seen by Dr. Torres in the past. Hospital Course: Patient was admitted for heart failure. he had a worsening of his renal function after diuresis. The patient was seen by Dr. Watts. He is improving. He is ckd stage 4. Will keep him on lasix for a few weeks. To improve his volume status. [facility] in Telephone. Thank you for allowing me to take part in the patients care. Vital Signs/Physical Exam: Temp Pulse Resp BP Pulse Ox 97.6 F 85 14 168/76 H 99 06/19/24 08:00 06/19/24 08:00 06/19/24 08:00 06/19/24 08:00 06/19/24 08:00 General: Alert, In no apparent distress HEENT: Atraumatic, PERRLA, EOMI Neck: Supple, JVD not distended Respiratory: Clear to auscultation bilaterally, Normal air movement Cardiovascular: Regular rate/rhythm, Normal S1 S2 Gastrointestinal: Normal bowel sounds, No tenderness Musculoskeletal: No tenderness Integumentary: No rashes Neurological: Normal speech, Normal tone, Normal affect Lymphatics: No axilla or inguinal lymphadenopathy Laboratory Data at Discharge: WBC 11.30 thou/uL (4.3-10.9) H 06/15/24 05:36 Hgb 9.8 g/dL (13.6-17.9) L 06/15/24 05:36 Hct 29.8 % (39.6-49.0) L 06/15/24 05:36 Plt Count 208 thou/uL (152-406) 06/15/24 05:36 PT 21.7 SECONDS (9.4-12.5) H 06/15/24 05:36 INR 2.08 06/15/24 05:36 APTT Cancelled 06/10/24 12:00 Sodium 140 mEq/L (136-145) 06/18/24 04:18 Potassium 4.1 mEq/L (3.5-5.1) 06/18/24 04:18 BUN 48 mg/dL (7-18) H 06/18/24 04:18 Creatinine 3.90 mg/dL (0.70-1.30) H 06/18/24 04:18 Glucose 95 mg/dL (74-106) 06/18/24 04:18 Uric Acid 9.1 mg/dL (3.5-7.2) H 06/09/24 05:23 Phosphorus 3.4 mg/dL (2.5-4.9) 06/18/24 04:18 Magnesium 2.5 mg/dL (1.6-2.4) H 06/13/24 06:51 Total Bilirubin 0.4 mg/dL (0.2-1.0) 06/15/24 05:36 AST < 10 U/L (15-37) L 06/15/24 05:36 ALT 16 U/L (16-61) 06/15/24 05:36 Alkaline Phosphatase 78 U/L (45-117) 06/15/24 05:36 LDL Cholesterol Direct 103 mg/dL (100-129) 06/14/24 04:51 Home Medications: Montelukast [Singulair*] 10 mg PO DAILY 05/29/21 Albuterol Sulfate [Proair Respiclick] 1 puff IH Q6H PRN 07/07/23 Cetirizine HCl 10 mg PO DAILY 07/07/23 Fluticasone [Flonase 50MCG Nasal [place]*] 2 sprays FATOUMATA DAILY 07/07/23 Glimepiride 1 mg PO DAILY 07/07/23 Metoprolol Succinate [Toprol Xl*] 50 mg PO DAILY 07/07/23 Tamsulosin HCl 0.4 mg PO DAILY 07/07/23 Amiodarone HCl [Cordarone*] 200 mg PO BID #60 tab 07/18/23 Amlodipine [Norvasc*] 5 mg PO DAILY #30 tab 07/18/23 Benzonatate [Tessalon Perle*] 200 mg PO TID PRN #30 cap 07/18/23 Guaifen W/Codeine Syrup [ROBITUSSIN A-C Syrup*] 10 ml PO Q12HP PRN #150 ml 07/18/23 Ipratropium Neb [Atrovent*] 0.5 mg NEB Q12HP PRN #60 amp 07/18/23 Isosorbide Bertie (Bid) [Ismo 10 mg Tab*] 20 mg PO DAILY #60 tab 07/18/23 Levalbuterol [Xopenex*] 1 amp NEB Q6H PRN #60 amp 07/18/23 Mometasone/Formoterol [Dulera 200 Mcg/5 Mcg Inhaler] 2 puff IH BID #1 inhaler 07/18/23 Nebulizer 1 each MC DAILY #1 ea 07/18/23 Nebulizer Accessories [Aeroneb Go] 1 each MC DAILY #1 ea 07/18/23 Rivaroxaban [Xarelto] 15 mg PO DAILY #30 tablet 07/30/23 Furosemide [Lasix] 40 mg PO DAILY 15 Days #15 tab 06/19/24 New Medications: Furosemide [Lasix] 40 mg PO DAILY 15 Days #15 tab Diet: ADA Activity: Ad claribel Followup: Mehran Wheeler MD [Primary Care Provider] - 1 Week Time spent managing pt's care (in minutes): 20
[2024-06-20 04:56] LABS: Anion Gap 9.3 mEq/L (5.0-15.0); Potassium 4.3 mEq/L (3.5-5.1)
--- NOTE | 2024-06-20 04:59 | PN ---
Date of Progress Note: 06/19/2024 Chief Complaint: Acute kidney injury on advanced chronic kidney disease, cardiorenal syndrome. History: Patient was treated with diuretics; currently diuretic on hold due to progressively worse r enal function. Renal function declined while the patient was treated with diuretics. Currently olayinka l function is plateauing. The patient has advanced chronic kidney disease, although he does not have . Physical Examination: Lungs: Clear to auscultation bilaterally. Heart: S1, S2. Abdomen: Soft, benign. Extremities: No edema. Impression And Plan: 1. Acute kidney injury secondary to cardiorenal syndrome. The patient has advanced chronic kidney di sease, currently at this time on hold and Lasix was decreased due to progressively worse renal functi on decline. 2. Continue to avoid nonsteroidal anti-inflammatory medication; resume maintenance Lasix. Monitor re nal function closely. 3. Hypertension. The patient will continue current medication and he will resume Lasix 40 mg daily. 4. Congestive heart failure with exacerbation. Continue Lasix and low-sodium diet. Currently Entres to on hold. 5. Anemia of chronic disease. Iron deficiency status post IV iron. H and H are stable. The patient will continue ESTHELA according to log. EB/MODL Voice ID: [id number] Report ID: [id number]
--- NOTE | 2024-06-20 11:31 | P.PN ---
Subjective Date of Service: 06/20/24 Primary Care Provider: Summer Chief Complaint: SOB discharge held due to difficulty with transfer to [place] Review of Systems 10-point ROS is otherwise unremarkable Physical Examination - Vital Signs Temperature: 98.7 F Blood Pressure: 181/85 Pulse: 76 Respirations: 16 Pulse Ox (%): 100 - Physical Exam General: Alert, In no apparent distress HEENT: Atraumatic, PERRLA, EOMI Neck: Supple, JVD not distended Respiratory: Clear to auscultation bilaterally, Normal air movement Cardiovascular: Regular rate/rhythm, Normal S1 S2 Gastrointestinal: Normal bowel sounds, No tenderness Musculoskeletal: No tenderness Integumentary: No rashes Neurological: Normal speech, Normal tone, Normal affect Lymphatics: No axilla or inguinal lymphadenopathy - Studies Medications List Reviewed: Yes Assessment And Plan - Current Problems (Diagnosis) (1) CKD stage 4 due to type 2 diabetes mellitus Current Visit: Yes Status: Chronic Plan: consult to Dr. Torres. Considering his poor chronic renal function. He is an ideal patient for [facility] or [facility]. The family has difficulty with expenses Will need to consult health care social worker for some low cost programs 2.13 no improvement in his creatine (2) Atrial fibrillation Current Visit: No Status: Chronic Plan: will restart his carvedilol when chf is better controlled Qualifiers: Atrial fibrillation type: longstanding persistent Qualified Code(s): I48.11 - Longstanding persistent atrial fibrillation (3) Diabetes mellitus Onset Date: 05/22/15 Current Visit: No Status: Chronic Qualifiers: Diabetes mellitus type: type 2 Diabetes mellitus long term acute care registered nurse insulin use: without long term acute care registered nurse use Diabetes mellitus complication status: with neurologic complications Diabetes mellitus complication detail: with polyneuropathy Qualified Code(s): E11.42 - Type 2 diabetes mellitus with diabetic polyneuropathy (4) Hypertension Current Visit: No Status: Chronic Qualifiers: Hypertension type: primary hypertension Qualified Code(s): I10 - Essential (primary) hypertension (5) COPD (chronic obstructive pulmonary disease) Current Visit: Yes Status: Acute Plan: will start him on levalbuterol. If no improvement may need to start steroids. Qualifiers: COPD type: chronic bronchitis Chronic bronchitis type: unspecified Qualified Code(s): J42 - Unspecified chronic bronchitis (6) Staphylococcus aureus bacteremia Current Visit: Yes Status: Acute Plan: switch her levaquin per the Melvin guide (7) Syncopal episodes Current Visit: Yes Status: Acute Plan: patient was found hypotensive in the bathroom. Will hold his bp meds Qualifiers: Syncope type: vasovagal syncope Qualified Code(s): R55 - Syncope and collapse (8) Acute on chronic combined systolic and diastolic heart failure Current Visit: Yes Status: Resolved Plan: Dr. Espinal consulted. Will keep him on bipap. Send the patient to the icu. Start lasix drip. 2.5.25 switched to metoprolol Discharge Plan: Alf Plan to discharge in: 24 Hours - Code Status/Comfort Care Code Status Assessed: No Physician Review: Patient Assessed, Agree with Above Assessment and Plan Critical Care: No Time Spent Managing PTS Care (In Minutes): 20
--- NOTE | 2024-06-20 22:29 | PN ---
Date of Progress Note: 06/20/2024 Chief Complaint: Acute kidney injury on advanced chronic kidney disease, cardiorenal syndrome. Subjective: The patient was treated with diuretics. Currently diuretic is on hold due to progressiv peter worse renal function. Renal function has declined when the patient was treated with diuretic. C urrently renal function is plateauing. Potassium level is within normal limits. There is no evidenc e of metabolic acidosis. The patient does not have uremic symptoms. Review of Systems: Denies chest pain, palpitations. Physical Examination: Lungs: Clear to auscultation bilaterally. Heart: S1, S2. Abdomen: Soft. Extremities: No edema. Impression And Plan: 1. Acute on chronic kidney injury. Lasix on hold. Continue p.o. hydration. 2. Continue to avoid nonsteroidal anti-inflammatory medication. Plan is to resume maintenance Lasix dose. Monitor renal function closely. 3. Hypertension. Blood pressure controlled. Continue current treatment. 4. Congestive heart failure exacerbation. The patient improved with treatment. The patient will con tinue maintenance Lasix dose and low-sodium diet. 5. Anemia of chronic disease. Iron-deficiency anemia. Status post IV iron. Hemoglobin and hematocrit stable. The patient will continue ESTHELA according to lab results. EB/MODL Voice ID: [id number] Report ID: [id number]
--- NOTE | 2024-06-21 09:10 | P.DS ---
Admission Date: 06/07/24 Discharge Date: 06/21/24 Primary Care Provider: Summer Disposition: TRANSFER TO [facility] Discharge Condition: GOOD Reason for Admission: SOB - Problems (1) CKD stage 4 due to type 2 diabetes mellitus Current Visit: Yes Status: Chronic (2) Atrial fibrillation Current Visit: No Status: Chronic Qualifiers: Atrial fibrillation type: longstanding persistent Qualified Code(s): I48.11 - Longstanding persistent atrial fibrillation (3) Diabetes mellitus Onset Date: 05/22/15 Current Visit: No Status: Chronic Qualifiers: Diabetes mellitus type: type 2 Diabetes mellitus nursing home insulin use: without intermediate school teacher use Diabetes mellitus complication status: with neurologic complications Diabetes mellitus complication detail: with polyneuropathy Qualified Code(s): E11.42 - Type 2 diabetes mellitus with diabetic polyneuropathy (4) Hypertension Current Visit: No Status: Chronic Qualifiers: Hypertension type: primary hypertension Qualified Code(s): I10 - Essential (primary) hypertension (5) COPD (chronic obstructive pulmonary disease) Current Visit: Yes Status: Acute Qualifiers: COPD type: chronic bronchitis Chronic bronchitis type: unspecified Qualified Code(s): J42 - Unspecified chronic bronchitis (6) Staphylococcus aureus bacteremia Current Visit: Yes Status: Acute (7) Syncopal episodes Current Visit: Yes Status: Acute Qualifiers: Syncope type: vasovagal syncope Qualified Code(s): R55 - Syncope and collapse (8) Acute on chronic combined systolic and diastolic heart failure Current Visit: Yes Status: Resolved Brief History of Present Illness: Patient is a pleasant 74 year Extensive history of CAD, atrial fib, aortic stenosis, CHF and ckd stage 4 with a baseline creatine fo 3.5. He has been having shortness of breath for the last 3-4 days. Was sent to the hospital. He had to be put on a bipap. the patient is currently stable. Was seen by Dr Espinal. Started on a furosemide drip and will be admitted to the ICU. He has been seen by Dr. Torres in the past. Hospital Course: Patient was admitted for heart failure. he had a worsening of his renal function after diuresis. The patient was seen by Dr. Watts. He is improving. He is ckd stage 4. Will keep him on lasix for a few weeks. To improve his volume status. [facility] in [place]. Thank you for allowing me to take part in the patients care. 06/21 Patient discharge was held for not accepted by [facility] Will discharge today. Discussed his creatine with Dr. Watts. Who agreed to the discharge Vital Signs/Physical Exam: Temp Pulse Resp BP Pulse Ox 97.4 F 85 18 151/79 H 100 06/21/24 04:00 06/21/24 06:29 06/21/24 04:00 06/21/24 06:29 06/21/24 04:00 General: Alert, In no apparent distress HEENT: Atraumatic, PERRLA, EOMI Neck: Supple, JVD not distended Respiratory: Clear to auscultation bilaterally, Normal air movement Cardiovascular: Regular rate/rhythm, Normal S1 S2 Gastrointestinal: Normal bowel sounds, No tenderness Musculoskeletal: No tenderness Integumentary: No rashes Neurological: Normal speech, Normal tone, Normal affect Lymphatics: No axilla or inguinal lymphadenopathy Laboratory Data at Discharge: WBC 11.30 thou/uL (4.3-10.9) H 06/15/24 05:36 Hgb 9.8 g/dL (13.6-17.9) L 06/15/24 05:36 Hct 29.8 % (39.6-49.0) L 06/15/24 05:36 Plt Count 208 thou/uL (152-406) 06/15/24 05:36 PT 21.7 SECONDS (9.4-12.5) H 06/15/24 05:36 INR 2.08 06/15/24 05:36 APTT Cancelled 06/10/24 12:00 Sodium 141 mEq/L (136-145) 06/20/24 04:00 Potassium 4.3 mEq/L (3.5-5.1) 06/20/24 04:00 BUN 43 mg/dL (7-18) H 06/20/24 04:00 Creatinine 3.92 mg/dL (0.70-1.30) H 06/20/24 04:00 Glucose 93 mg/dL (74-106) 06/20/24 04:00 Uric Acid 9.1 mg/dL (3.5-7.2) H 06/09/24 05:23 Phosphorus 3.4 mg/dL (2.5-4.9) 06/18/24 04:18 Magnesium 2.5 mg/dL (1.6-2.4) H 06/13/24 06:51 Total Bilirubin 0.4 mg/dL (0.2-1.0) 06/15/24 05:36 AST < 10 U/L (15-37) L 06/15/24 05:36 ALT 16 U/L (16-61) 06/15/24 05:36 Alkaline Phosphatase 78 U/L (45-117) 06/15/24 05:36 LDL Cholesterol Direct 103 mg/dL (100-129) 06/14/24 04:51 Home Medications: Montelukast [Singulair*] 10 mg PO DAILY 05/29/21 Albuterol Sulfate [Proair Respiclick] 1 puff IH Q6H PRN 07/07/23 Cetirizine HCl 10 mg PO DAILY 07/07/23 Fluticasone [Flonase 50MCG Nasal [place]*] 2 sprays FATOUMATA DAILY 07/07/23 Glimepiride 1 mg PO DAILY 07/07/23 Metoprolol Succinate [Toprol Xl*] 50 mg PO DAILY 07/07/23 Tamsulosin HCl 0.4 mg PO DAILY 07/07/23 Amiodarone HCl [Cordarone*] 200 mg PO BID #60 tab 07/18/23 Amlodipine [Norvasc*] 5 mg PO DAILY #30 tab 07/18/23 Benzonatate [Tessalon Perle*] 200 mg PO TID PRN #30 cap 07/18/23 Guaifen W/Codeine Syrup [ROBITUSSIN A-C Syrup*] 10 ml PO Q12HP PRN #150 ml 07/18/23 Ipratropium Neb [Atrovent*] 0.5 mg NEB Q12HP PRN #60 amp 07/18/23 Isosorbide [place] (Bid) [Ismo 10 mg Tab*] 20 mg PO DAILY #60 tab 07/18/23 Levalbuterol [Xopenex*] 1 amp NEB Q6H PRN #60 amp 07/18/23 Mometasone/Formoterol [Dulera 200 Mcg/5 Mcg Inhaler] 2 puff IH BID #1 inhaler 07/18/23 Nebulizer 1 each MC DAILY #1 ea 07/18/23 Nebulizer Accessories [Aeroneb Go] 1 each MC DAILY #1 ea 07/18/23 Rivaroxaban [Xarelto] 15 mg PO DAILY #30 tablet 07/30/23 Furosemide [Lasix] 40 mg PO DAILY 15 Days #15 tab 06/19/24 New Medications: Furosemide [Lasix] 40 mg PO DAILY 15 Days #15 tab Diet: ADA Activity: Ad claribel Followup: Denise Ng MD [ACTIVE - CAN ADMIT] - 1 Week Mehran Wheeler MD [Primary Care Provider] - 1 Week Time spent managing pt's care (in minutes): 20
--- NOTE | 2024-06-21 23:25 | PN ---
Date of Progress Note: 06/21/2024 Chief Complaint: Acute kidney injury on advanced chronic kidney disease stage 4, cardiorenal syndrom e. Subjective: The patient was treated with diuretic. Currently diuretic is on hold due to progressive ly worse renal function. Renal function has declined when the patient was treated with Lasix. Curre ntly, renal function is plateauing. Potassium level is within normal limits. There is no evidence o f metabolic acidosis. There is no uremic symptom. Review of Systems: Denies PND, orthopnea. Denies edema. Physical Examination: Lungs: Clear to auscultation bilaterally. Heart: S1, S2. Abdomen: Soft, benign. Extremities: No edema. Impression And Plan: 1. Acute on chronic kidney injury. Lasix will be resumed with maintenance dose. Continue p.o. hydra tion for acute on chronic kidney injury. 2. Continue to avoid nonsteroidal anti-inflammatory medication. Plan is to resume maintenance Lasix dose. Monitor renal function closely. 3. Hypertension. Blood pressure controlled. Continue current treatment. 4. Congestive heart failure exacerbation. The patient improved with treatment. Continue low-sodium diet. 5. Anemia of chronic disease. Iron-deficiency anemia, status post IV iron. Hemoglobin and hematocrit stable. The patient will continue ESTHELA according to lab results. EB/MODL Voice ID: [id number] Report ID: [id number]
--- NOTE | 2024-06-22 08:37 | P.DS ---
Admission Date: 06/07/24 Discharge Date: 06/22/24 Primary Care Provider: Summer Disposition: TRANSFER TO [facility] Discharge Condition: GOOD Reason for Admission: SOB - Problems (1) CKD stage 4 due to type 2 diabetes mellitus Current Visit: Yes Status: Chronic (2) Atrial fibrillation Current Visit: No Status: Chronic Qualifiers: Atrial fibrillation type: longstanding persistent Qualified Code(s): I48.11 - Longstanding persistent atrial fibrillation (3) Diabetes mellitus Onset Date: 05/22/15 Current Visit: No Status: Chronic Qualifiers: Diabetes mellitus type: type 2 Diabetes mellitus mcfp insulin use: without flatbed company driver use Diabetes mellitus complication status: with neurologic complications Diabetes mellitus complication detail: with polyneuropathy Qualified Code(s): E11.42 - Type 2 diabetes mellitus with diabetic polyneuropathy (4) Hypertension Current Visit: No Status: Chronic Qualifiers: Hypertension type: primary hypertension Qualified Code(s): I10 - Essential (primary) hypertension (5) COPD (chronic obstructive pulmonary disease) Current Visit: Yes Status: Acute Qualifiers: COPD type: chronic bronchitis Chronic bronchitis type: unspecified Qualified Code(s): J42 - Unspecified chronic bronchitis (6) Staphylococcus aureus bacteremia Current Visit: Yes Status: Acute (7) Syncopal episodes Current Visit: Yes Status: Acute Qualifiers: Syncope type: vasovagal syncope Qualified Code(s): R55 - Syncope and collapse (8) Acute on chronic combined systolic and diastolic heart failure Current Visit: Yes Status: Resolved Brief History of Present Illness: Patient is a pleasant 74 year Extensive history of CAD, atrial fib, aortic stenosis, CHF and ckd stage 4 with a baseline creatine fo 3.5. He has been having shortness of breath for the last 3-4 days. Was sent to the hospital. He had to be put on a bipap. the patient is currently stable. Was seen by Dr Espnial. Started on a furosemide drip and will be admitted to the ICU. He has been seen by Dr. Torres in the past. Hospital Course: Patient was admitted for heart failure. he had a worsening of his renal function after diuresis. The patient was seen by Dr. Watts. He is improving. He is ckd stage 4. Will keep him on lasix for a few weeks. To improve his volume status. [facility] in [place]. Thank you for allowing me to take part in the patients care. 06/21 Patient discharge was held for not accepted by [facility] Will discharge today. Discussed his creatine with Dr. Watts. Who agreed to the discharge Vital Signs/Physical Exam: Temp Pulse Resp BP Pulse Ox 97.0 F 80 17 171/80 H 96 06/22/24 04:00 06/22/24 05:37 06/22/24 04:00 06/22/24 05:37 06/22/24 04:00 General: Alert, In no apparent distress HEENT: Atraumatic, PERRLA, EOMI Neck: Supple, JVD not distended Respiratory: Clear to auscultation bilaterally, Normal air movement Cardiovascular: Regular rate/rhythm, Normal S1 S2 Gastrointestinal: Normal bowel sounds, No tenderness Musculoskeletal: No tenderness Integumentary: No rashes Neurological: Normal speech, Normal tone, Normal affect Lymphatics: No axilla or inguinal lymphadenopathy Laboratory Data at Discharge: WBC 11.30 thou/uL (4.3-10.9) H 06/15/24 05:36 Hgb 9.8 g/dL (13.6-17.9) L 06/15/24 05:36 Hct 29.8 % (39.6-49.0) L 06/15/24 05:36 Plt Count 208 thou/uL (152-406) 06/15/24 05:36 PT 21.7 SECONDS (9.4-12.5) H 06/15/24 05:36 INR 2.08 06/15/24 05:36 APTT Cancelled 06/10/24 12:00 Sodium 141 mEq/L (136-145) 06/20/24 04:00 Potassium 4.3 mEq/L (3.5-5.1) 06/20/24 04:00 BUN 43 mg/dL (7-18) H 06/20/24 04:00 Creatinine 3.92 mg/dL (0.70-1.30) H 06/20/24 04:00 Glucose 93 mg/dL (74-106) 06/20/24 04:00 Uric Acid 9.1 mg/dL (3.5-7.2) H 06/09/24 05:23 Phosphorus 3.4 mg/dL (2.5-4.9) 06/18/24 04:18 Magnesium 2.5 mg/dL (1.6-2.4) H 06/13/24 06:51 Total Bilirubin 0.4 mg/dL (0.2-1.0) 06/15/24 05:36 AST < 10 U/L (15-37) L 06/15/24 05:36 ALT 16 U/L (16-61) 06/15/24 05:36 Alkaline Phosphatase 78 U/L (45-117) 06/15/24 05:36 LDL Cholesterol Direct 103 mg/dL (100-129) 06/14/24 04:51 Home Medications: Montelukast [Singulair*] 10 mg PO DAILY 05/29/21 Albuterol Sulfate [Proair Respiclick] 1 puff IH Q6H PRN 07/07/23 Cetirizine HCl 10 mg PO DAILY 07/07/23 Fluticasone [Flonase 50MCG Nasal [place]*] 2 sprays FATOUMATA DAILY 07/07/23 Glimepiride 1 mg PO DAILY 07/07/23 Metoprolol Succinate [Toprol Xl*] 50 mg PO DAILY 07/07/23 Tamsulosin HCl 0.4 mg PO DAILY 07/07/23 Amiodarone HCl [Cordarone*] 200 mg PO BID #60 tab 07/18/23 Amlodipine [Norvasc*] 5 mg PO DAILY #30 tab 07/18/23 Benzonatate [Tessalon Perle*] 200 mg PO TID PRN #30 cap 07/18/23 Guaifen W/Codeine Syrup [ROBITUSSIN A-C Syrup*] 10 ml PO Q12HP PRN #150 ml 07/18/23 Ipratropium Neb [Atrovent*] 0.5 mg NEB Q12HP PRN #60 amp 07/18/23 Isosorbide [place] (Bid) [Ismo 10 mg Tab*] 20 mg PO DAILY #60 tab 07/18/23 Levalbuterol [Xopenex*] 1 amp NEB Q6H PRN #60 amp 07/18/23 Mometasone/Formoterol [Dulera 200 Mcg/5 Mcg Inhaler] 2 puff IH BID #1 inhaler 07/18/23 Nebulizer 1 each MC DAILY #1 ea 07/18/23 Nebulizer Accessories [Aeroneb Go] 1 each MC DAILY #1 ea 07/18/23 Rivaroxaban [Xarelto] 15 mg PO DAILY #30 tablet 07/30/23 Furosemide [Lasix] 40 mg PO DAILY 15 Days #15 tab 06/19/24 New Medications: Furosemide [Lasix] 40 mg PO DAILY 15 Days #15 tab Diet: ADA Activity: Ad lcaribel Followup: Denise Ng MD [ACTIVE - CAN ADMIT] - 1 Week Belkys Granger DO [OUTSIDE PHYSICIAN] - 1 Week Time spent managing pt's care (in minutes): 20
[2024-06-22 09:38] LABS: Albumin 2.9 g/dL (3.4-5.0); Albumin/Globulin Ratio 0.8 (1.1-1.8); Alkaline Phosphatase 72 U/L (45-117); Anion Gap 8.7 mEq/L (5.0-15.0); BUN Blood Urea Nitrogen 36 mg/dL (7-18); Bicarbonate 27 mEq/L (21-32); Bilirubin Total 0.4 mg/dL (0.2-1.0); Globulin 3.7 g/dL (2.3-3.5); Glomerular Filtration Rate 18 ml/min (=/>90); Glucose Level 90 mg/dL (74-106); Potassium 3.7 mEq/L (3.5-5.1); Protein, Total 6.6 g/dL (6.4-8.2); Sodium Level 140 mEq/L (136-145)
[2024-06-22 09:51] LABS: ALT/SGPT < 14 U/L (16-61); AST/SGOT < 10 U/L (15-37)
--- NOTE | 2024-06-22 19:12 | P.CNS ---
Date of Consult: 06/22/24 Reason for Consult: gangrene of toes Primary Care Provider: Summer Chief Complaint: SOB Allergies methocarbamol [From Robaxin] Allergy (Verified 07/24/16 23:32) Unknown simvastatin Adverse Reaction (Verified 07/24/16 23:32) Nausea/Vomiting statins Allergy (Uncoded 10/06/16 06:00) Unknown Home Medications: Montelukast [Singulair*] 10 mg PO DAILY 05/29/21 Albuterol Sulfate [Proair Respiclick] 1 puff IH Q6H PRN 07/07/23 Cetirizine HCl 10 mg PO DAILY 07/07/23 Fluticasone [Flonase 50MCG Nasal [place]*] 2 sprays FATOUMATA DAILY 07/07/23 Glimepiride 1 mg PO DAILY 07/07/23 Metoprolol Succinate [Toprol Xl*] 50 mg PO DAILY 07/07/23 Tamsulosin HCl 0.4 mg PO DAILY 07/07/23 Amiodarone HCl [Cordarone*] 200 mg PO BID #60 tab 07/18/23 Amlodipine [Norvasc*] 5 mg PO DAILY #30 tab 07/18/23 Benzonatate [Tessalon Perle*] 200 mg PO TID PRN #30 cap 07/18/23 Guaifen W/Codeine Syrup [ROBITUSSIN A-C Syrup*] 10 ml PO Q12HP PRN #150 ml 07/18/23 Ipratropium Neb [Atrovent*] 0.5 mg NEB Q12HP PRN #60 amp 07/18/23 Isosorbide [place] (Bid) [Ismo 10 mg Tab*] 20 mg PO DAILY #60 tab 07/18/23 Levalbuterol [Xopenex*] 1 amp NEB Q6H PRN #60 amp 07/18/23 Mometasone/Formoterol [Dulera 200 Mcg/5 Mcg Inhaler] 2 puff IH BID #1 inhaler 07/18/23 Nebulizer 1 each MC DAILY #1 ea 07/18/23 Nebulizer Accessories [Aeroneb Go] 1 each MC DAILY #1 ea 07/18/23 Rivaroxaban [Xarelto] 15 mg PO DAILY #30 tablet 07/30/23 Furosemide [Lasix] 40 mg PO DAILY 15 Days #15 tab 02/15/25 - Past Medical/Surgical History Diabetic: Yes -: [place] -: DM-2 -: HTN -: Atrial fibrillation on chronic anticoagulation -: CHF-diastolic -: Sleep Apnea -: CAD -: TIA -: HLD -: basal cell carcinoma -: CKD -: COPD -: Cardiac catheterization with stent placement x 5 -: Back surgery -: Tonsillectomy -: Adenoids -: Nose surgery -: 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 Psychosocial/ Personal History: Lives at home, alone - Family History Father Medical History: Heart disease Mother Medical History: Heart disease, Hypertension, Diabetes Sister Medical History: Hypertension, Diabetes - Social History Smoking Status: Current every day smoker Alcohol use: No CD- Drugs: No Caffeine use: Yes Place of Residence: Home Review of Systems 10-point ROS is otherwise unremarkable Cardiovascular: Other (nonpalpable pedal pulses bilateral lower extremity) Musculoskeletal: Unremarkable Physical Examination Temp Pulse Resp BP Pulse Ox 97.5 F 81 15 163/77 H 100 06/22/24 15:51 06/22/24 15:51 06/22/24 15:51 06/22/24 15:51 06/22/24 15:51 General: Alert, In no apparent distress, Oriented x3 Cardiovascular: No edema, Abnormal pulses (nonpalpable pedal pulses bilateral lower extremity) Capillary refill: >2 Seconds Musculoskeletal: No clubbing, No swelling, No contractures, No erythema, No tenderness, No warmth Integumentary: Other (Dry gangrene of the distal tip of bilateral third digit with avulsion of the nail. No signs of infection, no drainage) Neurological: Sensation intact - Problems (1) Type 2 diabetes mellitus with diabetic peripheral angiopathy with gangrene Current Visit: Yes Status: Acute (2) Dry gangrene Current Visit: Yes Status: Acute (3) Type 2 diabetes mellitus with foot ulcer Current Visit: Yes Status: Acute Conclusions/Impression: Dry gangrene present bilateral third digits. Due to patient's renal status and vascular status patient is not a candidate for surgery at this time. I recommend betadine wet to dry dressings to bilateral third digit daily. Over time this will allow for autoamputation of the affected areas
--- NOTE | 2024-06-22 22:46 | PN ---
Date of Progress Note: 06/22/2024 Chief Complaint: Acute kidney injury on advanced chronic kidney disease, stage 4; cardiorenal syndro me. Subjective: The patient was treated with diuretic. He developed progressively worse hyperazotemia a nd Lasix was adjusted. Renal function is plateauing. Potassium level is within normal limits. The patient does not have me tabolic acidosis. There is no uremic symptomatology. Review of Systems: Denies chest pain, palpitation. Physical Examination: Lungs: Clear to auscultation bilaterally. Heart: S1, S2. Abdomen: Soft, benign. Extremities: No edema. Impression And Plan: 1. Acute on chronic kidney injury. The patient will resume Lasix with maintenance dose. Continue p. o. hydration. 2. Continue to avoid nonsteroidal anti-inflammatory medication. 3. Hypertension. Blood pressure controlled. 4. Congestive heart failure with exacerbation. The patient was treated with diuretics and volemia im proved. Continue low-sodium diet. 5. Anemia of chronic kidney disease. Iron deficiency anemia, status post IV iron. Hemoglobin and hematocrit are stable. Continue to monitor. EB/MODL Voice ID: [id number] Report ID: [id number]
[2024-06-23 04:52] VITALS: BMI 28.0
--- NOTE | 2024-06-23 08:44 | P.PN ---
Subjective Date of Service: 06/23/24 Primary Care Provider: Summer Chief Complaint: SOB Seen by Dr. Langley. no plan for surgery. Will autoamputate. Review of Systems 10-point ROS is otherwise unremarkable Physical Examination - Vital Signs Temperature: 97.9 F Blood Pressure: 176/81 Pulse: 68 Respirations: 14 Pulse Ox (%): 99 - Physical Exam General: Alert, In no apparent distress HEENT: Atraumatic, PERRLA, EOMI Neck: Supple, JVD not distended Respiratory: Clear to auscultation bilaterally, Normal air movement Cardiovascular: Regular rate/rhythm, Normal S1 S2 Gastrointestinal: Normal bowel sounds, No tenderness Musculoskeletal: No tenderness Integumentary: No rashes Neurological: Normal speech, Normal tone, Normal affect Lymphatics: No axilla or inguinal lymphadenopathy - Studies Medications List Reviewed: Yes Assessment And Plan - Current Problems (Diagnosis) (1) CKD stage 4 due to type 2 diabetes mellitus Current Visit: Yes Status: Chronic Plan: consult to Dr. Torres. Considering his poor chronic renal function. He is an ideal patient for [facility] or [facility]. The family has difficulty with expenses Will need to consult social insurance adviser for some low cost programs 2.13 no improvement in his creatine (2) Atrial fibrillation Current Visit: No Status: Chronic Plan: will restart his carvedilol when chf is better controlled Qualifiers: Atrial fibrillation type: longstanding persistent Qualified Code(s): I48.11 - Longstanding persistent atrial fibrillation (3) Diabetes mellitus Onset Date: 05/22/15 Current Visit: No Status: Chronic Qualifiers: Diabetes mellitus type: type 2 Diabetes mellitus ocean transportation intermediary insulin use: without alf use Diabetes mellitus complication status: with neurologic complications Diabetes mellitus complication detail: with polyneuropathy Qualified Code(s): E11.42 - Type 2 diabetes mellitus with diabetic polyneuropathy (4) Hypertension Current Visit: No Status: Chronic Qualifiers: Hypertension type: primary hypertension Qualified Code(s): I10 - Essential (primary) hypertension (5) COPD (chronic obstructive pulmonary disease) Current Visit: Yes Status: Acute Plan: will start him on levalbuterol. If no improvement may need to start steroids. Qualifiers: COPD type: chronic bronchitis Chronic bronchitis type: unspecified Qualified Code(s): J42 - Unspecified chronic bronchitis (6) Staphylococcus aureus bacteremia Current Visit: Yes Status: Acute Plan: switch her levaquin per the Melvin guide (7) Syncopal episodes Current Visit: Yes Status: Acute Plan: patient was found hypotensive in the bathroom. Will hold his bp meds Qualifiers: Syncope type: vasovagal syncope Qualified Code(s): R55 - Syncope and collapse (8) Acute on chronic combined systolic and diastolic heart failure Current Visit: Yes Status: Resolved Plan: Dr. Espinal consulted. Will keep him on bipap. Send the patient to the icu. Start lasix drip. 2.5.25 switched to metoprolol Discharge Plan: Home Plan to discharge in: 24 Hours - Code Status/Comfort Care Code Status Assessed: No Physician Review: Patient Assessed, Agree with Above Assessment and Plan Critical Care: No Time Spent Managing PTS Care (In Minutes): 20
[2024-06-23 14:14] VITALS: O2SAT 99
--- NOTE | 2024-06-23 15:49 | PN ---
Date of Progress Note: 06/23/2024 Subjective: The patient was admitted to the hospital with acute kidney injury secondary to cardioren al. The patient did not require any dialysis. Lasix was hold, then Entresto and spironolactone the same, then we rechallenge with Lasix, the patient tolerated. Physical Examination: Vital Signs: Blood pressure 176/81, pulse of 68. Chest: Faint rales, bilateral. Heart: S1, S2. Systolic murmur. Abdomen: Soft, nontender. Extremities: No edema, gangrenous toe. Neurologic: Alert. No tremor. No focality. Laboratory Data: WBC 11.3, hemoglobin 9.8. Sodium 140, potassium 3.7, bicarb 27, BUN 36, creatinine 3.4, calcium 9.1. Current Medications: The patient on, include: 1. Flomax. 2. Amiodarone. 3. Metoprolol. 4. Lasix 40. 5. Pantoprazole. 6. Levothyroxine. Assessment And Plan: 1. Acute kidney injury secondary to cardiorenal superimposed with Entresto and spironolactone recover , trending down. We will continue current dose of Lasix. The patient cleared from the Renal standpo int for discharge planning. 2. Hypertension, controlled, not optimal. We will start the patient on nitroglycerin. Please avoid Entresto or spironolactone. Continue Lasix. 3. Hyperkalemia, resolved. 4. Congestive heart failure with exacerbation. Continue Lasix as above. 5. Gangrenous toe. Follow up with Vascular and Primary. IVY/YESY Voice ID: [id number] Report ID: [id number]
[2024-06-23 17:05] VITALS: BP 176/84; TEMP 98.4
[2024-06-24] MEDS ORDERED: NITROGLYCERIN 0.2 MG/HR (5 MG) PATCH TD SCH (09:00)
== END 2024-06-23 18:23 | disposition home health service (06) | DRG 280 ==
LOC: ER 04:38 → ERHOLD 07:26 → 3RD-ICU 16:03 → 2ND 06-10 21:36
PROVIDERS: ADMIT Internal Medicine; ATTEND Internal Medicine
PROC: 02HV33Z Insertion of Infusion Device into Superior Vena Cava, Percutaneous Approach (ICD-10-PCS; principal; 2024-06-07)
PROC: 0T9B70Z Drainage of Bladder with Drainage Device, Via Natural or Artificial Opening (ICD-10-PCS; 2024-06-07)
PROC: 4A033R1 Measurement of Arterial Saturation, Peripheral, Percutaneous Approach (ICD-10-PCS; 2024-06-07)
PROC: 5A09457 Assistance with Respiratory Ventilation, 24-96 Consecutive Hours, Continuous Positive Airway Pressure (ICD-10-PCS; 2024-06-07)
DX: I13.0 Hypertensive heart and chronic kidney disease with heart failure and stage 1 through stage 4 chronic kidney disease, or unspecified chronic kidney disease (principal); I50.43 Acute on chronic combined systolic (congestive) and diastolic (congestive) heart failure; I21.A1 Myocardial infarction type 2; N17.0 Acute kidney failure with tubular necrosis; J96.01 Acute respiratory failure with hypoxia; J18.9 Pneumonia, unspecified organism; J81.0 Acute pulmonary edema; R78.81 Bacteremia; E87.20 Acidosis, unspecified; N18.4 Chronic kidney disease, stage 4 (severe); J44.1 Chronic obstructive pulmonary disease with (acute) exacerbation; E11.52 Type 2 diabetes mellitus with diabetic peripheral angiopathy with gangrene; Q25.1 Coarctation of aorta; J44.0 Chronic obstructive pulmonary disease with (acute) lower respiratory infection; N25.81 Secondary hyperparathyroidism of renal origin; D63.1 Anemia in chronic kidney disease; D63.8 Anemia in other chronic diseases classified elsewhere; E11.42 Type 2 diabetes mellitus with diabetic polyneuropathy; I25.10 Atherosclerotic heart disease of native coronary artery without angina pectoris; I25.2 Old myocardial infarction; E11.22 Type 2 diabetes mellitus with diabetic chronic kidney disease; E11.319 Type 2 diabetes mellitus with unspecified diabetic retinopathy without macular edema; Z79.01 Long term (current) use of anticoagulants; Z95.5 Presence of coronary angioplasty implant and graft; Z11.52 Encounter for screening for COVID-19; R55 Syncope and collapse; B95.7 Other staphylococcus as the cause of diseases classified elsewhere; B95.4 Other streptococcus as the cause of diseases classified elsewhere
CPT/HCPCS: 36415; 36556; 36600; 51702; 70450; 71045; 71250; 74176; 76770; 80048; 80053; 80069; 82570; 82607; 82728; 82805; 82947; 83036; 83540; 83605; 83615; 83735; 83880; 84100; 84132; 84156; 84439; 84443; 84466; 84484; 84550; 85025; 85610; 85730; 86140; 87040; 87077; 87186; 87205; 87804; 87811; 93005; 93306; 94660; 94760; 97110; 97116; 97161; 97530; 99285; J0360; J0692; J1940; J2405; J2916; J2919; J3480; J3535; J7030; J7040; J7050; J7613; J7614; J7644; Q5106